=== PATIENT | female | born 1955 | race Hispanic/Latino ===

== ENCOUNTER 2017-05-07 07:36 | Inpatient (IN) | payer OTHER ==
[2017-05-07] MEDS ORDERED: Ketorolac Tromethamine 30 MG/ML VIAL ONE (08:15)
[2017-05-07 08:20] LABS: #Basophils 0.1 thou/uL (0.0-0.2); #Eosinphils 0.2 thou/uL (0.0-0.7); #Lymphocytes 2.1 thou/uL (1.20-3.40); #Monocytes 0.7 thou/uL (0.11-0.59); #Neutrophils 3.9 thou/uL (1.40-6.50); %Basophils 1.5 % (0.0-1.0); %Eosinophils 2.2 % (0.0-10.0); %Lymphocytes 30.4 % (21.0-51.0); %Monocytes 9.5 % (0.0-10.0); Hematocrit 37.4 % (36.0-47.0)
[2017-05-07 08:46] LABS: ALT (SGPT) 21 U/L (8-55); AST (SGOT) 46 U/L (5-34); Alkaline Phosphatase 196 U/L (40-150); Anion Gap 13 mmol/L (10-20); BUN (Urea Nitrogen) 20 mg/dL (9.8-20.1); Bilirubin, Total 1.3 mg/dL (0.2-1.2); Calc. Creatinine Clearance 0 mL/min (70-130); Calcium 8.9 mg/dL (7.8-10.44); Carbon Dioxide 28 mmol/L (22-29); Chloride 103 mmol/L (98-107); Estimated GFR-MDRD 69; Globulin 5.1 g/dL (2.4-3.5)
--- NOTE | 2017-05-07 09:20 | RAD ---
EXAM: LEFT TIBIA AND FIBULA 2 VIEWS: HISTORY: Pain. COMPARISON: None. FINDINGS: There is soft tissue prominence. The distal tibia and fibula demonstrate degenerative change. No f racture. No cortical irregularity or periosteal reaction. There is significant degenerative change involving the left knee. IMPRESSION: 1. No fracture. 2. Degenerative change involving the left knee and left ankle. POS: [facility]
--- NOTE | 2017-05-07 09:24 | RAD ---
LEFT FOOT 3 VIEWS: HISTORY: A 62-year-old female with left foot pain with associated injury. Dyspnea. COMPARISON: Left ankle exam 08/24/14. FINDINGS: There is soft tissue swelling of the ankle and anterior aspect of the foot. There is pes planus wit h considerable deformity within the subtalar joints and talonavicular and other intertarsal joints p ossibly related to Charcot joint and resultant deformity. Degenerative changes and bone demineraliz ation. Vascular calcifications as well as other soft tissue nonspecific calcifications. There are some interosseous cystic changes noted within the distal fibula which have progressed when compared to the prior study. No evidence for acute fracture. IMPRESSION: Very severe deformity of the hindfoot and midfoot. Evidence for Charcot joint. No acute fracture. Bone demineralization and degenerative changes. Soft tissue swelling of the foot and lower leg and ankle. POS: [facility]
[2017-05-07] MEDS ORDERED: Vancomycin HCl 2 GM, Admixture Fee 1 EACH in Sodium Chloride 0.9% 500 ML IVPB SCH (10:00)
[2017-05-07] MEDS ORDERED: Clindamycin/D5W 300 MG/50 ML BAG IVPB SCH (12:00)
[2017-05-07] MEDS ORDERED: Clindamycin/D5W 300 MG in Premix Bag 1 BAG IVPB SCH (12:00)
--- NOTE | 2017-05-07 13:44 | HP ---
DATE OF ADMISSION: 05/07/2017 CHIEF COMPLAINT: Leg pain. HISTORY OF PRESENT ILLNESS: This is a 62-year-old with multiple past comorbidities who presents with worsening left lower extremity pain, redness, swelling, and subjective chills since Wednesday. Because of her multiple comorbidities and I believe failed outpatient treatment, she decided to come into the hospital and be admitted. REVIEW OF SYSTEMS: Reviewed in detail. Please see the resident's H\T\P. PAST MEDICAL HISTORY: Significant for morbid obesity, obstructive sleep apnea, hypertension, dyslipidemia, diabetes mellitus type ; paroxysmal atrial fibrillation, currently regular; osteoarthritis, obesity hypoventilation syndrome/pickwickian syndrome, major depressive disorder, chronic diastolic heart failure, pulmonary hypertension, fatty liver disease/cryptogenic cirrhosis , macrocytic anemia, hypothyroidism, hyperlipidemia. PAST SURGICAL HISTORY: Positive for cholecystectomy, , tonsillectomy. ALLERGIES: Reportedly PENICILLIN. MEDICATIONS: List of medications reviewed with residents, see their note. FAMILY HISTORY: Noncontributory. SOCIAL HISTORY: History of tobacco abuse. Denies any alcohol or drug abuse. PHYSICAL EXAMINATION: VITAL SIGNS: Reviewed. O2 sat 99% on 2 liters nasal cannula. CONSTITUTIONAL: No acute distress, resting comfortably in bed. Morbidly obese. HEENT: Eyes without icterus or injection. Pinna normal. Nares patent. Obese neck. CARDIOVASCULAR: Heart regular rate and rhythm without murmurs, gallops or rubs. Diffuse edema in the left lower extremity. RESPIRATORY: Clear to auscultation bilaterally, limited by exam. No increased work of breathing. ABDOMEN: Soft, nontender to palpation. Normoactive bowel sounds. GENITOURINARY: Deferred. MUSCULOSKELETAL: She has a deformity of the left lower extremity from previously noted Charcot joint and a right Victor's cyst. NEUROLOGIC: Moves all extremities well. Sensation, subjectively decreased touch in bilateral lower extremities. PSYCHIATRIC: Mood and affect appropriate. Alert and oriented x3. LABORATORY DATA AND X-RAY FINDINGS: CBC with a white count of 7, hemoglobin 11.5, MCV 104, platelets 121. Chemistry with sodium 140, potassium 4.3, chloride 103, carbon dioxide 28, BUN 20, creatinine 0.84, total bilirubin 1.3, AST 46, alkaline phosphatase 196, ALT 21. X-ray of the lower extremity reveals multiple degenerative changes consistent with Charcot joint and a soft tissue swelling. ASSESSMENT AND PLAN: This is a 62-year-old female with: 1. Cellulitis of the left lower extremity, started on vancomycin and Zosyn. She has multiple risk factors for drug resistant organisms. We will send blood culture and admit to our service. 2. Chronic obstructive pulmonary disease in the setting of pulmonary hypertension and diastolic heart failure. O2, mean sat above 90%-94%. We will make sure she is on aspirin, statin, MEKA inhibitor, beta yuri as indicated. 3. Hypertension. See above. 4. Diabetes mellitus. We will monitor sugars with a goal of 140-180 while she is inpatient. A1c and lipid panel was indicated. 5. Counseled concerning her morbid obesity. 6. Hypothyroidism. Continue Synthroid. 7. Venous stasis disease. At current, she will need DENYS hose or another form of wrap for her bilateral lower extremities to prevent further tissue breakdown and to ensure healing. 8. Atrial fibrillation. She is currently on Eliquis. Will evaluate in light of her possible high risk of bleeding. 9. Cirrhosis. This is by chart report and by some imaging as well as a finding such as thrombocytopenia and persistently elevated LFTs. As she is not a drinker and dose not have any history of hepatitis, this is presumably from fatty liver disease. We will check INR and monitor. 10. Elevated AST. We will sent a CK to ensure she was in rhabdomyolysis from not getting around much. 11. Deep venous thrombosis prophylaxis. She is currently on Eliquis. We will go ahead and order lower extremity Dopplers. She has had multiple negatives in the past, but in light of her severe immobility, we will go ahead and order. 12. Tobacco abuse patient financial counselor cessation. DVT ppx as above;gastrointestinal prophylaxis with diet. MTDD
--- NOTE | 2017-05-07 14:39 | HP-2 ---
CODE STATUS: FULL. PRIMARY CARE PHYSICIAN: Jaguar Hughes D.O. ATTENDING PHYSICIAN: Greg Smith D.O. RESIDENT: Brittany Woods M.D., PGY-2. HISTORIAN: Patient. CHIEF COMPLAINT: Left leg pain. HISTORY OF PRESENT ILLNESS: The patient is a 62-year-old Pashto speaking female with multiple medical problems who presents to the Emergency Department with 4 day history of lower extremity redness and swelling. The patient states that it started after accidentally closing her left leg in a car door. She states that the redness worsened. She mentions that she also fell and hit her leg 2 days ago. She did not seek outpatient medical treatment for this issue. The patient is extremely immobile and mostly completes her activities of daily living while being seated. She denies any recent travel, no hormonal medications or recent surgeries. In the emergency department, the patient received 2 grams of vancomycin and morphine. PAST MEDICAL HISTORY: 1. COPD. 2. Obstructive sleep apnea. 3. Paroxysmal atrial fibrillation. 4. Tobacco abuse. 5. Type 2 diabetes. 6. Chronic venous stasis. 7. Morbid obesity. 8. Essential hypertension. 9. Depression. 10. Peripheral edema. 11. History of tobacco abuse. 12. Hypothyroidism. MEDICATIONS: 1. Eliquis 5 mg p.o. b.i.d. 2. Synthroid 100 mcg p.o. daily. 3. Aspirin 81 mg p.o. daily. 4. Folic acid 1 mg daily. 5. B complex vitamin 1 tablet daily. 6. Pantoprazole 40 mg daily. 7. Lasix 40 mg p.o. every 2 days. 8. Potassium chloride 20 mEq p.o. daily. 9. Nicotine patch. FAMILY HISTORY: Significant for diabetes and hypertension. SOCIAL HISTORY: The patient currently is a nonsmoker. She denies alcohol and drug use. REVIEW OF SYSTEMS: GENERAL: The patient denies fever, chills, weight change, appetite change, sleep change, night sweats and fatigue. EYES: The patient denies vision changes and eye pain. ENT: The patient denies nasal congestion, rhinorrhea, and sore throat. RESPIRATORY: The patient denies cough, congestion, shortness of breath, exercise intolerance. CARDIOVASCULAR: The patient denies chest pain, palpitations, edema, paroxysmal nocturnal dyspnea or orthopnea. GASTROINTESTINAL: The patient denies nausea, vomiting, diarrhea, constipation, abdominal pain. GENITOURINARY: The patient denies incontinence, dysuria, polyuria or discharge. SKIN: The patient reports redness. MUSCULOSKELETAL: The patient reports pain, tenderness and swelling. NEUROLOGIC: The patient denies weakness, numbness, syncope, and seizure. PSYCHIATRIC: Patient denies current symptoms of anxiety and depression. PHYSICAL EXAMINATION: VITAL SIGNS: Blood pressure 53/75, pulse 64, respirations 16, T-max 98.6, pulse ox 99% on 2 liters, weight 159 kilograms. GENERAL APPEARANCE: Patient is alert and oriented x3 in no apparent distress. She is morbidly obese. EYES: Pupils equal, round, and reactive to light. Extraocular muscles are intact. ENT: Examination of the oropharynx reveals moist mucous membranes. NECK: Supple with no lymphadenopathy. CARDIOVASCULAR: Regular rate and rhythm. No murmurs, rubs or gallops. RESPIRATORY: Lungs are clear to auscultation bilaterally. SKIN: Warm and dry with no cyanosis. ABDOMEN: Soft and distended, fluid with some peau D'orange changes. EXTREMITIES: Bilateral lower extremity pitting edema extending up to the mid arce. There is an approximately 7 cm diameter area of redness on the left lower anterior arce with areas exquisitely tender to palpation. The right lower extremity shows some dusky discoloration changes. MUSCULOSKELETAL: Normal structure and tone. NEUROLOGICAL: No focal deficits. Cranial nerves II-XII intact grossly. LABORATORY DATA AND IMAGIN. CBC: Hemoglobin 11.5, hematocrit 37.4, white blood cell count 7.02, platelet count 121, MCV 104. 2. CMP: Sodium 140, potassium 4.3, chloride 103, bicarbonate 28, BUN 20, creatinine 0.84, glucose 94, total protein 8.0, albumin 2.9, total bilirubin 1.3 , AST 46, ALT 21, alkaline phosphatase 196. 3. Echocardiogram from 12/2016 shows ejection fraction of 55%-60% with trace mitral regurgitation and tricuspid regurgitation. 4. X-ray of the left lower extremity shows no fracture of the tibia. It does show a deformity of the hind and midfoot, Charcot joint, there is soft tissue swelling. ASSESSMENT AND PLAN: The patient is a 62-year-old female with a 4-day history of lower extremity pain and redness. 1. Left lower extremity cellulitis. We will begin treatment with IV clindamycin. We will order medications for pain control. Blood cultures have been obtained and are pending. We will also order left lower extremity Doppler to rule out deep venous thrombosis. 2. Chronic obstructive pulmonary disease. Continue patient's home medications and we will also add p.r.n. DuoNebs. 3. Proximal atrial fibrillation, currently rate controlled. Continue anticoagulation with Eliquis. 4. Hypothyroidism. We will order a TSH. Continue patient's home medications. 5. Left lower extremity edema. Continue patient's home Lasix and potassium. 6. Gastroesophageal reflux disease. Continue patient's pantoprazole. 7. Macrocytic anemia. Continue patient's folate and B12 complexes and we can also check laboratory levels of this as well. 8. History of tobacco abuse. We will continue patient's home dose of transdermal nicotine. DISPOSITION: Stable. We will admit patient to inpatient medical service for at least 2 midnights. Symptomatic medications will be provided. History and physical exam as well as management discussed with Dr. Greg Ware, who has seen the patient and is in agreement with this plan. SALOMED
[2017-05-07] MEDS ORDERED: FLU VACC QS2017-18 36 mo. & older 0.5 ML SYRINGE IM ONE (15:00)
--- NOTE | 2017-05-07 16:43 | ULT ---
LEFT LOWER EXTREMITY VENOUS DUPLEX SONOGRAM: 05/07/17 HISTORY: Left leg pain and edema. FINDINGS: The left common femoral vein and greater saphenous junction were evaluated along with the femoral, d eep femoral, popliteal, and posterior tibial veins. There is good color and spectral doppler flow, c ompression, and augmentation. IMPRESSION: No sonographic evidence of DVT within the left lower extremity. POS: [facility]
[2017-05-07] MEDS: Simvastatin 20 MG TAB PO SCH (21:36)
[2017-05-07] MEDS: Ibuprofen 600 MG TAB PO SCH (21:36)
[2017-05-07] MEDS: Apixaban 5 MG TAB PO SCH (21:37)
[2017-05-07] MEDS: Clindamycin/D5W 300 MG in Premix Bag 1 BAG IVPB SCH (21:40)
[2017-05-08] MEDS: Clindamycin/D5W 300 MG in Premix Bag 1 BAG IVPB SCH ×4 (04:17→21:09)
[2017-05-08 04:59] LABS: #Basophils 0.1 thou/uL (0.0-0.2); #Eosinphils 0.2 thou/uL (0.0-0.7); #Monocytes 0.6 thou/uL (0.11-0.59); %Basophils 1.3 % (0.0-1.0); %Eosinophils 3.4 % (0.0-10.0); %Lymphocytes 34.1 % (21.0-51.0); %Monocytes 10.6 % (0.0-10.0); Hematocrit 32.6 % (36.0-47.0); Mean Platelet Volume 8.9 fL (7.4-10.4); Red Blood Cell (RBC) Count 3.08 mill/uL (4.20-5.40)
[2017-05-08] MEDS ORDERED: Levothyroxine Sodium 112 MCG TAB PO SCH (06:00)
--- NOTE | 2017-05-08 06:24 | PDOC.FM ---
- Subjective Subjective: Per nurse, patient did well overnight. No complaints/concerns. Still having left leg pain. No extension or progression of erythema on leg. No fevers. Denies chest pain, abdominal pain. - Objective MAR Reviewed: Yes Vital Signs & Weight: Vital Signs (12 hours) Temp Pulse Resp BP Pulse Ox 05/08/17 05:44 97.8 F 61 20 133/78 92 L 05/08/17 00:00 98.3 F 63 18 124/72 92 L 05/07/17 20:00 98.1 F 75 18 140/69 93 L I&O: 05/06/17 05/07/17 05/08/17 06:59 06:59 06:59 Intake Total 280 Output Total 600 Balance -320 Result Diagrams: 05/08/17 03:51 05/07/17 08:00 <Chris Montiel - Last Filed: 05/08/17 07:38> - Objective Vital Signs & Weight: Vital Signs (12 hours) Temp Pulse Resp BP BP Pulse Ox 05/08/17 08:00 97.9 F 67 24 H 132/85 92 L 05/08/17 05:44 97.8 F 61 20 133/78 92 L I&O: 05/07/17 05/08/17 05/09/17 06:59 06:59 06:59 Intake Total 280 Output Total 600 Balance -320 Result Diagrams: 05/08/17 03:51 05/07/17 08:00 <Simin Wilkinson - Last Filed: 05/08/17 14:58> Phys Exam - Physical Examination Constitutional: NAD HEENT: moist MMs, sclera anicteric Neck: supple, full ROM Respiratory: no wheezing, no rales, no rhonchi, clear to auscultation bilateral Cardiovascular: RRR, no significant murmur Gastrointestinal: soft, non-tender, no distention, positive bowel sounds Musculoskeletal: edema present 2+ edema on left leg Neurological: non-focal, moves all 4 limbs Psychiatric: A&O x 3 Deviation from normal: erythema of left lower extremity, does not extend passed marked lines <Chris Montiel - Last Filed: 05/08/17 07:38> Dx/Plan (1) Cellulitis of leg Code(s): L03.119 - CELLULITIS OF UNSPECIFIED PART OF LIMB Status: Acute Plan: -switch from IV clindamycin to PO clindamycin today -cultures pending -will need to f/u OP -LE doppler was negative (2) COPD (chronic obstructive pulmonary disease) Status: Acute Plan: -continue home medications -prn duonebs (3) Paroxysmal a-fib Code(s): I48.0 - PAROXYSMAL ATRIAL FIBRILLATION Status: Acute Plan: -continue home meds -continue anticoagulation with eliquis (4) Hypothyroid Code(s): E03.9 - HYPOTHYROIDISM, UNSPECIFIED Status: Chronic Plan: TSH 20. Will increase home dose, will need to f/u OP to manage therapy and recheck TSH (5) GERD (gastroesophageal reflux disease) Code(s): K21.9 - GASTRO-ESOPHAGEAL REFLUX DISEASE WITHOUT ESOPHAGITIS Status: Acute Plan: -home meds (6) Macrocytic anemia Code(s): D53.9 - NUTRITIONAL ANEMIA, UNSPECIFIED Status: Chronic Plan: -cont home B12 and folate (7) History of tobacco abuse Code(s): Z87.891 - PERSONAL HISTORY OF NICOTINE DEPENDENCE Status: Acute - Plan Plan: Patient likely ready for discharge today on PO clindamycin with close OP follow up. <Chris Montiel - Last Filed: 05/08/17 07:38> Attending Addendum - Attending Addendum I personally evaluated the patient and discussed the management with Dr. Montiel. I agree with the History, Examination, Assessment and Plan documented above with any addition or exceptions noted below. Diabetic with cellulitis of leg after injury admitted yesterday and doing much better today. Erythema and swelling reduced, but patient still has lots of pain. Blood cultures negative x 24 hours. TSH is 20.8582, so will need to increase Levothyroxine dose. If Tylenol #3 helps pain enough, can discharge home this afternoon with close outpatient follow-up. <Simin Wilkinson - Last Filed: 05/08/17 14:58>
[2017-05-08] MEDS: Potassium Chloride 20 MEQ TAB PO SCH (09:48)
[2017-05-08] MEDS: Stress 600 With Zinc 1 TAB PO SCH (09:48)
[2017-05-08] MEDS: Apixaban 5 MG TAB PO SCH ×2 (09:48→20:51)
[2017-05-08] MEDS: Ibuprofen 600 MG TAB PO SCH ×2 (09:48→20:52)
[2017-05-08] MEDS: Acetaminophen/Codeine 30-300mg Tablet PO PRN ×3 (09:48→22:06)
[2017-05-08] MEDS: Folic Acid 1 MG TAB PO SCH (09:48)
[2017-05-08] MEDS: Citalopram 20 MG TAB PO SCH (09:49)
[2017-05-08] MEDS: Simvastatin 20 MG TAB PO SCH (20:52)
[2017-05-09] MEDS: Clindamycin/D5W 300 MG in Premix Bag 1 BAG IVPB SCH ×4 (03:05→21:07)
[2017-05-09] MEDS ORDERED: Levothyroxine Sodium 125 MCG TAB PO SCH (06:00)
--- NOTE | 2017-05-09 06:38 | PDOC.FM ---
- Subjective Subjective: Per nurse, patient did well overnight. Slept much better after getting the tylenol #3. This morning the patient states that her left leg is still hurting. Denies fever, chest pain, abdominal pain, nausea, vomiting. - Objective MAR Reviewed: Yes Vital Signs & Weight: Vital Signs (12 hours) Temp Pulse Resp BP Pulse Ox 05/09/17 04:00 97.7 F 62 18 156/90 H 94 L 05/08/17 23:47 98.2 F 65 20 131/73 92 L 05/08/17 20:00 98.1 F 70 18 94 L 05/08/17 19:35 98.1 F 70 18 115/65 94 L I&O: 05/07/17 05/08/17 05/09/17 06:59 06:59 06:59 Intake Total 280 840 Output Total 600 Balance -320 840 Result Diagrams: 05/09/17 06:13 05/07/17 08:00 Radiology Reviewed by me: Yes <Chris Montiel - Last Filed: 05/09/17 07:49> - Objective Vital Signs & Weight: Vital Signs (12 hours) Temp Pulse Resp BP BP BP Pulse Ox 05/09/17 08:17 62 156/90 H 05/09/17 08:00 97.8 F 68 18 106/65 93 L 05/09/17 04:00 97.7 F 62 18 156/90 H 94 L I&O: 05/08/17 05/09/17 05/10/17 06:59 06:59 06:59 Intake Total 280 840 Output Total 600 10 Balance -320 840 -10 Result Diagrams: 05/09/17 06:13 05/07/17 08:00 <Simin Wilkinson - Last Filed: 05/09/17 14:47> Phys Exam - Physical Examination Constitutional: NAD HEENT: moist MMs, sclera anicteric Neck: no JVD, supple, full ROM Respiratory: no wheezing, no rales, no rhonchi, clear to auscultation bilateral Cardiovascular: RRR, no significant murmur, no rub, gallop Gastrointestinal: soft, non-tender, no distention Musculoskeletal: pulses present, edema present left lower leg edema Neurological: non-focal, moves all 4 limbs Psychiatric: A&O x 3 <Chris Montiel - Last Filed: 05/09/17 07:49> Dx/Plan (1) Cellulitis of leg Code(s): L03.119 - CELLULITIS OF UNSPECIFIED PART OF LIMB Status: Acute Plan: -continue IV clindamycin yesterday -monitoring leg closely to response to abx -cultures pending-no growth to date -will need to f/u OP -LE doppler was negative for DVT (2) COPD (chronic obstructive pulmonary disease) Status: Acute Plan: -continue home medications -prn duonebs (3) Paroxysmal a-fib Code(s): I48.0 - PAROXYSMAL ATRIAL FIBRILLATION Status: Acute Plan: -continue home meds -continue anticoagulation with eliquis -has remained rate-controlled (4) Hypothyroid Code(s): E03.9 - HYPOTHYROIDISM, UNSPECIFIED Status: Chronic Plan: TSH 20. Will increase home dose, will need to f/u OP to manage therapy and recheck TSH -Increased Synthroid to 125mcg (5) GERD (gastroesophageal reflux disease) Code(s): K21.9 - GASTRO-ESOPHAGEAL REFLUX DISEASE WITHOUT ESOPHAGITIS Status: Acute Plan: -cont home meds (6) Macrocytic anemia Code(s): D53.9 - NUTRITIONAL ANEMIA, UNSPECIFIED Status: Chronic Plan: -cont home B12 and folate (7) History of tobacco abuse Code(s): Z87.891 - PERSONAL HISTORY OF NICOTINE DEPENDENCE Status: Acute (8) Hypertension Code(s): I10 - ESSENTIAL (PRIMARY) HYPERTENSION Status: Chronic Qualifiers: Hypertension type: essential hypertension Qualified Code(s): I10 - Essential (primary) hypertension Plan: -Review of clinic records show that she takes Lisinopril 2.5 mg PO daily and Lasix 40 mg every other day. -Starting both of those today. -BPs have been normal throughout admission until today. Most recent BP- 156/90 -Will continue to monitor - Plan Plan: If pain is well controlled, patient will be discharged today with PO clindamycin and pain medication. Will need close follow up OP. <Chris Montiel - Last Filed: 05/09/17 07:49> Attending Addendum - Attending Addendum I personally evaluated the patient and discussed the management with Dr. Montiel. I agree with the History, Examination, Assessment and Plan documented above with any addition or exceptions noted below. Patient was asleep, but once awake, seems very uncomfortable when team came in today. C/O pain and not being able to go home due to pain. She received Tylenol #3 before bedtime and slept through the night. This morning she was uncomfortable when seen by Dr. Montiel, so was given more medicine. Cellulitis is improved with decreased redness, but still exquisitely tender in the area. PT eval. put in yesterday, so they will probably assess gait today. Will give 4 mg Morphine and then schedule oral pain meds q 4 hours and reassess. If still having too much pain, may need to stay another night for pain managment. If she stays, might be able to see if qualifies for SNF tomorrow. <Simin Wilkinson - Last Filed: 05/09/17 14:47>
[2017-05-09 06:56] LABS: #Eosinphils 0.1 thou/uL (0.0-0.7); #Lymphocytes 1.8 thou/uL (1.20-3.40); #Monocytes 0.6 thou/uL (0.11-0.59); %Basophils 0.7 % (0.0-1.0); %Eosinophils 2.1 % (0.0-10.0); %Lymphocytes 32.2 % (21.0-51.0); %Monocytes 10.8 % (0.0-10.0); Hematocrit 34.3 % (36.0-47.0); Mean Platelet Volume 9.3 fL (7.4-10.4); Red Blood Cell (RBC) Count 3.16 mill/uL (4.20-5.40); White Blood Cell (WBC) Count 5.5 thou/uL (4.8-10.8)
[2017-05-09] MEDS: Lisinopril 2.5 MG TAB PO SCH (08:17)
[2017-05-09] MEDS: Potassium Chloride 20 MEQ TAB PO SCH (08:17)
[2017-05-09] MEDS: Citalopram 20 MG TAB PO SCH (08:17)
[2017-05-09] MEDS: Ibuprofen 600 MG TAB PO SCH ×2 (08:17→20:46)
[2017-05-09] MEDS: Stress 600 With Zinc 1 TAB PO SCH (08:17)
[2017-05-09] MEDS: Apixaban 5 MG TAB PO SCH ×2 (08:17→20:46)
[2017-05-09] MEDS: Acetaminophen/Codeine 30-300mg Tablet PO PRN (08:18)
[2017-05-09] MEDS: Folic Acid 1 MG TAB PO SCH (08:18)
[2017-05-09] MEDS: Floranex Packet PO SCH (08:18)
[2017-05-09] MEDS ORDERED: Furosemide 40 MG TAB PO SCH (08:30)
[2017-05-09] MEDS: Acetaminophen/Codeine 30-300mg Tablet PO SCH ×4 (10:20→23:02)
[2017-05-09] MEDS: Simvastatin 20 MG TAB PO SCH (20:46)
[2017-05-09] MEDS: Ondansetron HCl/PF 4 MG/2 ML Vial IVP PRN (21:08)
[2017-05-10] MEDS ORDERED: Succinylcholine Chloride 20 MG/ML 10 ml SYRINGE FS ONE (01:00)
[2017-05-10] MEDS: Acetaminophen/Codeine 30-300mg Tablet PO SCH (01:42)
[2017-05-10] MEDS ORDERED: Sedation Protocol FS ONE (01:44)
[2017-05-10] MEDS ORDERED: Propofol 1,000 MG/100 ML VIAL IV ONE (01:48)
[2017-05-10] MEDS ORDERED: Lorazepam 2 MG/ML VIAL SLOW IVP PRN (01:55)
[2017-05-10] MEDS ORDERED: DISCONTINUE PREVIOUS NARCOTIC PAIN MEDICATIONS AND BENZODIAZEPINES FS SCH (01:55)
[2017-05-10] MEDS ORDERED: Fentanyl 20 MCG/ML 250 ML IVPB SCH (01:55)
[2017-05-10 02:02] LABS: #Basophils 0.1 thou/uL (0.0-0.2); #Eosinphils 0.1 thou/uL (0.0-0.7); #Monocytes 0.8 thou/uL (0.11-0.59); %Basophils 0.8 % (0.0-1.0); %Eosinophils 0.9 % (0.0-10.0); %Lymphocytes 27.6 % (21.0-51.0); %Monocytes 7.2 % (0.0-10.0); Hematocrit 38.7 % (36.0-47.0); Red Blood Cell (RBC) Count 3.47 mill/uL (4.20-5.40)
[2017-05-10 02:05] LABS: PTT 40.9 SEC (22.9-36.1)
[2017-05-10 02:13] LABS: Troponin I 0.015 ng/mL (< 0.028)
[2017-05-10] MEDS ORDERED: Norepinephrine 8 MG/250 ML BAG IVPB PRN (02:13)
[2017-05-10 02:22] LABS: ALT (SGPT) 21 U/L (8-55); AST (SGOT) 40 U/L (5-34); Alkaline Phosphatase 171 U/L (40-150); Anion Gap 10 mmol/L (10-20); BUN (Urea Nitrogen) 27 mg/dL (9.8-20.1); Calc. Creatinine Clearance 119 mL/min (70-130); Calcium 8.9 mg/dL (7.8-10.44); Carbon Dioxide 33 mmol/L (22-29); Chloride 101 mmol/L (98-107); Estimated GFR-MDRD 43; Globulin 5.6 g/dL (2.4-3.5); Protein, Total 8.7 g/dL (6.0-8.3)
[2017-05-10] MEDS: Norepinephrine 8 MG/0.9% NS 250 ML ONE ×2 (02:42→03:56)
[2017-05-10 02:56] LABS: Oxyhemoglobin 94.6 % (94.0-97.0); Sodium 140 mmol/L (135-148)
[2017-05-10 03:11] LABS: Mechanical Tidal Volume 450 ml; Vent YES
[2017-05-10 03:12] LABS: Pressure Support 12 cmH2O
[2017-05-10 03:13] LABS: Mode SIMV
--- NOTE | 2017-05-10 03:21 | PDOC.EVN ---
Event Note - Event Note Event Note: FM Attending Note Critical Care Note Critical Care time 01:05am to 03:15am Came to patients room following overhead call for Fernandez Bass. Patient was noted by nursing staff to be unarousable and with O2 Sat of 53%. RT present along with Resident physicians. Patient was being ventilated with bag mask. Patient had pulse. While ET intubation was being prepared, Anesthesia arrived. Oral airway had been placed. When it was removed, Some blood in the mouth was noted and suctioned away by Anesthesia. Patient successfully intubated and transferred to the CCU. CXR confirmed ET placement. In the CCU MAPS were noted to be less than 65, so NS bolus initated. Propofol was ordered for sedation, since patient was being more alert and agitated. Levophed initiated. The ET cuff was noted to not inflate and an air leak was noted. With Love sedated I attempted to replace the ET tube over ET replacement stylet. After successfully pass the stylet, the ET tube was removed but the new ET tube would not pass the vocal cords. When passing the new ET tube was unsuccessful, Bag mask ventilation was initiated and Anesthesia was called to return. While awaiting Anesthesia, I was able to visualize the Vocal Cords which were closed and edematous. Visualization was lost due to blood obscuring the view. Blood was suction from the mouth and pharynx. The only source of bleeding was from her upper gum. Anesthesia arrived, gave a dose of Succinylcholine and was able to successfully intubate. She has Breath Sounds bilaterally. CXR shows the tip of ETT just above kathleen. Awaiting Rad report. Following second intubation her BP has improved and the levophed is being weaned. Sedation protocol has been initiated. Labs drawn shortly after fernandez bass called are unremarkable except for increase in creatinine. Trop/CE normal. Lactate normal. EKG shows no acute ischemic change. Sinus rhythm, normal rate. ABG shows elevated pCO2 at 64. pO2 at 70. HCO3 is 29.5. This is consistent with Acute Hypercapnic Resp Failure on chronic hypercapnia. Because of her eloquis, I do not think she has a PE. Her EKG do not suggest an AMI. I suspect a pickwickian syndrome etiology. I expect her to respond to Ventilation and wean off the vent over the coming days but given her body habitus and comorbidities this may be take longer. Her prognosis is guarded.
[2017-05-10] MEDS ORDERED: Sodium Chloride 0.9% 1,000 ML IV SCH ×2 (03:45→11:33)
[2017-05-10] MEDS: Clindamycin/D5W 300 MG in Premix Bag 1 BAG IVPB SCH ×4 (04:12→20:28)
[2017-05-10 05:06] LABS: #Eosinphils 0.1 thou/uL (0.0-0.7); #Lymphocytes 0.9 thou/uL (1.20-3.40); #Monocytes 0.4 thou/uL (0.11-0.59); #Neutrophils 4.9 thou/uL (1.40-6.50); %Basophils 0.2 % (0.0-1.0); %Eosinophils 2.3 % (0.0-10.0); %Lymphocytes 14.1 % (21.0-51.0); %Monocytes 6.1 % (0.0-10.0); Hematocrit 31.4 % (36.0-47.0); Mean Platelet Volume 9.3 fL (7.4-10.4); Red Blood Cell (RBC) Count 2.92 mill/uL (4.20-5.40); White Blood Cell (WBC) Count 6.4 thou/uL (4.8-10.8)
[2017-05-10] MEDS: Sodium Chloride 0.9% 1,000 ML IV SCH ×2 (05:36→13:53)
[2017-05-10] MEDS: Propofol 1,000 MG/100 ML VIAL IV PRN ×5 (05:41→21:00)
[2017-05-10 05:53] LABS: Free T3 Less than 1.00 pg/mL (1.71-3.71)
[2017-05-10 06:56] LABS: Oxyhemoglobin 96.6 % (94.0-97.0); Sodium 139 mmol/L (135-148)
[2017-05-10 06:57] LABS: Mechanical Tidal Volume 450 ml; Mode SIMV/PSV; Modified Allen's Test POSITIVE; Pressure Support 12 cmH2O; Vent YES
--- NOTE | 2017-05-10 07:15 | PDOC.FM ---
- Subjective Subjective: Patient intubated and sedated this morning. Has been neurologically intact off intubation but agitated. She was transferred to CCU overnight after a code blue was called and she was found hypoventilating with an oxygen sat down to 53%. She was intubated but had to have reintubation 2/2 air leak. - Objective Vital Signs & Weight: Vital Signs (12 hours) Temp Pulse Resp BP BP Pulse Ox 05/10/17 06:01 53 L 110/62 05/10/17 04:00 97.5 F L 24 H 05/10/17 03:28 24 H 05/10/17 03:15 56 L 05/10/17 01:44 20 05/10/17 01:30 62 05/10/17 01:27 97.5 F L 69 20 98 05/10/17 00:45 97.3 F L 88 20 143/67 H 56 L 05/10/17 00:27 20 05/09/17 20:00 98.4 F 69 18 90/46 L 94 L Weight Weight 155.6 kg Most Recent Monitor Data Heart Rate from ECG 54 NIBP 110/62 NIBP BP-Mean 74 Respiration from ECG 19 SpO2 96 I&O: 05/09/17 05/10/17 05/11/17 06:59 06:59 06:59 Intake Total 840 3212.1 Output Total 416 Balance 840 2796.1 Result Diagrams: 05/10/17 07:54 05/10/17 01:15 <Mary Fernandez - Last Filed: 05/10/17 10:14> - Objective Vital Signs & Weight: Vital Signs (12 hours) Temp Pulse Pulse Resp BP BP BP 05/10/17 10:10 97.9 F 57 L 20 119/63 05/10/17 10:02 60 122/67 05/10/17 10:00 20 05/10/17 09:55 97.8 F 56 L 20 116/65 05/10/17 09:39 97.8 F 56 L 20 83/46 L 05/10/17 09:24 97.5 F L 57 L 20 120/65 05/10/17 08:59 97.5 F L 05/10/17 08:00 20 05/10/17 06:01 53 L 110/62 05/10/17 04:00 97.5 F L 24 H 05/10/17 03:28 24 H 05/10/17 03:15 56 L 05/10/17 01:44 20 05/10/17 01:30 62 05/10/17 01:27 97.5 F L 69 20 05/10/17 00:45 97.3 F L 88 20 05/10/17 00:27 20 BP Pulse Ox 05/10/17 10:10 05/10/17 10:02 05/10/17 10:00 05/10/17 09:55 05/10/17 09:39 05/10/17 09:24 05/10/17 08:59 05/10/17 08:00 05/10/17 06:01 05/10/17 04:00 05/10/17 03:28 05/10/17 03:15 05/10/17 01:44 05/10/17 01:30 05/10/17 01:27 98 05/10/17 00:45 143/67 H 56 L 05/10/17 00:27 Weight Weight 155.6 kg Most Recent Monitor Data Heart Rate from ECG 57 NIBP 119/62 NIBP BP-Mean 77 Respiration from ECG 20 SpO2 100 I&O: 05/09/17 05/10/17 05/11/17 06:59 06:59 06:59 Intake Total 840 3212.1 510 Output Total 416 85 Balance 840 2796.1 425 Result Diagrams: 05/10/17 07:54 05/10/17 01:15 <Valeria Madrid - Last Filed: 05/10/17 11:03> Phys Exam - Physical Examination omtubated and sedated bright blood oozing from mouth Respiratory: no wheezing difficult exam 2/2 body habitus gilles with reg rhythm Gastrointestinal: soft, no distention, positive bowel sounds Musculoskeletal: no edema Deviation from normal: LLE cellulitis improving, mild erythema <Mary Fernandez - Last Filed: 05/10/17 10:14> Dx/Plan (1) Acute on chronic respiratory failure with hypoxia and hypercapnia Code(s): J96.21 - ACUTE AND CHRONIC RESPIRATORY FAILURE WITH HYPOXIA; J96.22 - ACUTE AND CHRONIC RESPIRATORY FAILURE WITH HYPERCAPNIA Status: Acute Plan: transferred to CCU and intubated on 05/10/17 -unclear etiology but may be 2/2 hypoventilation 2/2 obesity. (2) Hypotension Status: Acute Plan: on levofed drip and NS @ 200ml/hr. Did receive 2 liter bolus overnight after transfer to ICU. Possible trauma during intubation and currently bleeding from mouth. Plan for 1 unit PRBC per pulm. repeat HGB pending. after intubation hgb at 11.5 and dropped to 9.6 s/p 2 liters NS. ENT consulted (3) Cellulitis of leg Code(s): L03.119 - CELLULITIS OF UNSPECIFIED PART OF LIMB Status: Acute Plan: clindamycin day 5. improving. (4) Macrocytic anemia Code(s): D53.9 - NUTRITIONAL ANEMIA, UNSPECIFIED Status: Chronic Plan: likely worsening appearance of anemia this AM is dilutional (5) History of tobacco abuse Code(s): Z87.891 - PERSONAL HISTORY OF NICOTINE DEPENDENCE Status: Acute (6) COPD (chronic obstructive pulmonary disease) Status: Acute (7) MALISSA (acute kidney injury) Code(s): N17.9 - ACUTE KIDNEY FAILURE, UNSPECIFIED Status: Acute (8) Hypoventilation associated with obesity Code(s): E66.2 - MORBID (SEVERE) OBESITY WITH ALVEOLAR HYPOVENTILATION Status : Chronic (9) Paroxysmal a-fib Code(s): I48.0 - PAROXYSMAL ATRIAL FIBRILLATION Status: Acute (10) Pulmonary hypertension Code(s): I27.2 - OTHER SECONDARY PULMONARY HYPERTENSION * DO NOT USE * Status : Acute <Mary Fernandez - Last Filed: 05/10/17 10:14> Attending Addendum - Attending Addendum I personally evaluated the patient and discussed the management with Dr. Fernandez I agree with the History, Examination, Assessment and Plan documented above with any addition or exceptions noted below- Patient intubated and sedated. Overnight events reviewed. Afebrile VSS. A/P: 1) Respiratory failure- continue vent support and wean as per pulmonary, 2) Difficult intubation- now with bleeding from mouth/airway. Given KCentra to reverse eliquis and transfused pRBC /FFP; will consult ENT, 3) Cellulitis-improved; continue current abx;. 4) Hypotension- uncertain etiology; continue pressor support; monitor urine output. <Valeria Madrid - Last Filed: 05/10/17 11:03>
--- NOTE | 2017-05-10 08:10 | RAD ---
PRELIMINARY REPORT/[facility]/EMERGENCY AFTER HOURS PROCEDURE: EXAM: XR Chest, 1 View CLINICAL HISTORY: 62 years old, female; Device placement; Ett placement (vent status); Patient HX: S/P intubation TECHNIQUE: Frontal view of the chest. COMPARISON: No relevant prior studies available. FINDINGS: Limited study due to low lung volumes, body habitus, rotation, portable technique and overlying dens ities. Consider repeat/followup study. It is difficult to determine the location of the tip of the endotracheal tube, however it could be close to the kathleen and retraction by 2 cm suggested. Tip of the nasogastric tube is not well visual ized below the diaphragm. Left lung diffuse airspace opacities. Enlarged cardiomediastinal silhouette could relate to technique, cardiomegaly and other etiologies. No significant effusion or pneumothorax on limited supine evaluation. IMPRESSION: Limited study. Life-support devices described above. Left lung diffuse airspace opacities may represent pneumonia, although other etiologies not excluded . Other findings above. Thank you for allowing us to participate in the care of your patient. Dictated and Authenticated by: Markel Jane MD 05/10/2017 3:13 AM Central Time ([place] \T\ [place]) FINAL REPORT AP VIEW OF THE CHEST: INDICATION: Status post intubation, NG tube placement. COMPARISON: Prior exam dated 05/10/17. IMPRESSION: EG tube remains at the level of the kathleen. Cardiomegaly and bilateral perihilar airspace opacities , left greater than right, are stable. No pneumothorax is evident. Pacer pad overlies the right up per hemithorax. Osseous structures are similar. IMPRESSION: Stable positioning of the ET tube tip. Recommend withdrawal atleast 1.5 cm. POS: [facility]
--- NOTE | 2017-05-10 08:36 | RAD ---
FRONTAL RADIOGRAPH CHEST: DATE: 05/10/17. COMPARISON: 03/21/17. HISTORY: Code Blue. FINDINGS: There is gaseous distention of the stomach. There is an endotracheal tube in place, distal tip over lying the tracheal air column, probably within 1.3 cm of the kathleen. Recommend slightly retracting the endotracheal tube. There is artifact overlying the right upper lobe, limiting assessment. The patient is mildly rotated to the right. There is mild nonspecific perihilar increased density which may be on the basis of vascular prominence or airspace disease. IMPRESSION: Slightly low-lying endotracheal tube. Gaseous distention of stomach. Pulmonary vascular prominence versus mild perihilar infiltrate. Followup advised. POS: [facility]
[2017-05-10] MEDS ORDERED: HUMAN PROTHROMBIN COMPLX IV SCH (09:00)
[2017-05-10] MEDS ORDERED: ADMIXTURE FEE IV SCH (09:00)
[2017-05-10 09:29] LABS: Hematocrit 28.7 % (36.0-47.0)
[2017-05-10] MEDS ORDERED: Lacri-Lube Opth Oint 3.5 GM TUBE EA EYE PRN (11:32)
--- NOTE | 2017-05-10 12:34 | CON ---
DATE OF CONSULTATION: 05/10/2017 SERVICE: Pulmonary Medicine. REASON FOR CONSULTATION: Intubated patient. HISTORY OF PRESENT ILLNESS: The patient is a 62-year-old female with past medical history significant for a little bit of cellulitis. She was clinically improving very well. Last night, she a little bit of discomfort. She was given Tylenol #3. That being said, she has tolerated this medication on several times in the past. She was found, however, a couple of hours later and was nonresponsive. She had saturations that were in the 50s. She never lost pulse. Because of her altered mentation, she was electively intubated. The cuff ruptured at some point, so the tube was exchanged. There is a difficult time establishing a repeat airway. There were multiple episodes of desaturation during this process, though she never did lose pulse. After an airway was secured, there was significant amount of bleeding around the mouth and nose. Two nasal tampons are in place. She continues to have blood coming from the mouth. She cannot provide any additional elements of the history. Her sedation is a little on the heavy side, but because anytime she wakes up and coughs or gags, the bleeding becomes more profuse. PAST MEDICAL HISTORY: 1. Type 2 diabetes mellitus. 2. Hypertension. 3. Dyslipidemia. 4. Proximal atrial fibrillation. 5. Obstructive sleep apnea. 6. Chronic obstructive pulmonary disease, possible. 7. Tobacco abuse. 8. Chronic stasis of the bilateral lower extremities. 9. Morbid obesity. 10. Major depressive disorder. 11. Tobacco abuse. 12. Hypothyroidism. PAST SURGICAL HISTORY: 1. Cholecystectomy. 2. section. FAMILY HISTORY: Positive for diabetes and hypertension. SOCIAL HISTORY: Negative for current alcohol, tobacco or illicit drug use. ALLERGIES: PENICILLIN and AMOXICILLIN. MEDICATIONS: List of her inpatient medications was reviewed. Multiple updates were made. PHYSICAL EXAMINATION: VITAL SIGNS: Afebrile, pulse 60, blood pressure 119/63, respirations 20, saturation 100% on 47% FiO2. HEENT: Normocephalic. There is a significant amount of blood at the mouth and naris. Bilateral nasal tampons are in place. I have inspected the tongue around the area of the teeth and I did not identify any clear evidence of a laceration or bleeding nidus. LUNGS: Decent air entry bilaterally. There is no prolonged expiratory phase. There are minimal crackles dependently. HEART: Normal rate, regular. ABDOMEN: Soft, nontender, nondistended, bowel sounds positive. MUSCULOSKELETAL: No cyanosis or clubbing. There is 2+ pitting in the bilateral lower extremities, which is roughly symmetric. She has chronic stasis of the bilateral lower extremities, but increased erythema of the left leg. There is a line that previously identified, the red margin, which is now regressing. There is a little bit of increased heat to the right leg compared to left. LABORATORY DATA: WBC 6.4, hemoglobin 10.2 and roughly stable, platelets 81, 000. INR 1.5, pH of 7.52, pCO2 of 33, pO2 51. Creatinine 1.26 and up trending. BUN 27. Basic metabolic profile is otherwise unremarkable. Bilirubin 1.0, AST 40, alkaline phosphatase 171, both of which are down trending gently. Albumin 3.1. TSH is elevated and a free T3 is low. Lactate is unremarkable. Blood cultures x2 were negative. IMAGING: Chest x-ray demonstrates endotracheal tube is a little bit deep. There is some left lower lobe parenchymal opacification. ASSESSMENT: 1. Cellulitis. 2. Severe sepsis, improving. 3. Acute kidney injury. 4. Acute hypoxic respiratory failure, unknown etiology. 5. Acute blood loss anemia. 6. Obstructive sleep apnea. PLAN: We will continue supportive care. Hemoglobin will be trended. If she drops significantly or develops any instability from a hemodynamic perspective, she will be transfused a couple of units of blood. We are going down for a CT of the head and neck with contrast, so that we can further delineate the injury and see what may be actively bleeding presently. Ventilator adjustments have been made to target her goals of respiration. Pulmonary and Critical Care will continue to follow, but she will certainly remain intubated until the bleeding stops. Of note, Eliquis has been discontinued. CRITICAL CARE TIME: 30 minutes. MTDD
--- NOTE | 2017-05-10 13:06 | CT ---
CT OF THE BRAIN WITH AND WITHOUT IV CONTRAST: Date: 05/10/17 INDICATION: History of Code earlier this morning with bleeding from the airway. COMPARISON: Noncontrast CT of the brain dated 02/02/17. FINDINGS: No acute intracranial infarct, hemorrhage, or hydrocephalus is present. Septum pellucidum and third ventricle are midline. There is mild chronic small vessel white matter ischemic change. No definite area of abnormal enhancement is evident. There is a prominent amount of debris seen within the oral cavity, nasal cavity, and visualized oropharynx. There is air fluid levels within the paranasal sinu ses. There is a right mastoid effusion. The patient is intubated. IMPRESSION: 1. No acute intracranial abnormality. 2. Prominent amount of debris within the nasal cavity, oral cavity, and visualized nasal oropharynx . Recommend suctioning. 3. Air fluid levels within the paranasal sinuses may be related to patient's recent intubation. Pro minent sinusitis cannot be entirely excluded. 4. Partial right mastoid effusion. 5. Mild chronic small vessel white matter ischemic change. POS: [facility]
--- NOTE | 2017-05-10 13:23 | CT ---
CT OF THE SOFT TISSUES OF THE NECK WITH IV CONTRAST: Date: 05/10/17 INDICATION: History of coding this morning, now concern for bleeding from the airway. FINDINGS: Prominent amount of debris seen within the nasopharynx, nasal cavity, oropharynx, and within the janelle nstem trachea adjacent to the ET tube tip. No obvious debris is evident within the distal main trach ea below the level of the vocal cords. No drainable fluid collection is evident. There are air fluid levels within the visualized paranasal sinuses. Posterior fossa appears within normal limits. There is some soft tissue gas seen within the right lateral aspect of the cheek on image 29 of series 4, which may reflect a buccal laceration. No abnormal density is seen within the parapharyngeal space o r within the general doc space. Parotid and submandibular glands appear within normal limits. There i s a small nodule within the left thyroid gland measuring 1.3 cm. There is a 1.0 cm lymph node seen w ithin the right paratracheal region. Gastric catheter is seen within the esophagus. There are perihi lar air space opacities. There is scattered degenerative change. IMPRESSION: 1. Findings suspicious for possible right-sided buccal laceration. Recommend correlation with the c linical exam. There is debris seen within the nasal cavity, oral cavity, nasal and oropharynx which may reflect hemorrhage. Recommend suction. Remaining visualized aerodigestive tract appears within n ormal limits. A small amount of debris is seen within the proximal mainstem trachea adjacent to the ET tube tip, none is seen below the level of the vocal cords. 2. Perihilar opacities are nonspecific and may reflect perihilar edema. Continued follow-up is chary mmended. 3. Left thyroid nodule measuring 1.3 cm. 4. Paranasal sinus air fluid levels may reflect sequelae of recent intubation; however, prominent p aranasal sinusitis cannot be entirely excluded. 5. Small right mastoid effusion. POS: [facility]
[2017-05-10] MEDS: Lisinopril 2.5 MG TAB PO SCH (13:53)
[2017-05-10] MEDS: Ibuprofen 600 MG TAB PO SCH (13:53)
[2017-05-10] MEDS: Floranex Packet PO SCH (13:53)
[2017-05-10] MEDS: Potassium Chloride 20 MEQ TAB PO SCH (13:53)
[2017-05-10] MEDS: Folic Acid 1 MG TAB PO SCH (15:06)
[2017-05-10] MEDS: Stress 600 With Zinc 1 TAB PO SCH (15:06)
[2017-05-10] MEDS: Citalopram 20 MG TAB PO SCH (15:06)
[2017-05-10] MEDS ORDERED: Dexamethasone 20 MG/5 ML VIAL SLOW IVP SCH (15:15)
[2017-05-10] MEDS ORDERED: ISOVUE-370 76%-LOCM 1 ML ONE (16:35)
[2017-05-10] MEDS ORDERED: EPINEPHrine 1 MG/ML AMP ONE (18:09)
[2017-05-10] MEDS ORDERED: Fentanyl 100 MCG/2 ML VIAL ONE (18:13)
[2017-05-10] MEDS ORDERED: Midazolam HCl 2 mg/2 ml Vial ONE (18:13)
[2017-05-10] MEDS ORDERED: Lidocaine 1% w/Epinephrine 1:200K 30 ML VIAL ONE (18:34)
[2017-05-10] MEDS ORDERED: Oxymetazoline HCl 0.05% ( 15 ML ) ONE (18:39)
[2017-05-10] MEDS ORDERED: Propofol 200 MG/20 ML VIAL ONE (18:43)
[2017-05-10] MEDS ORDERED: PHENYLEPHRINE-NS 100 MCG/ML 10 ML SYRINGE ONE (18:43)
[2017-05-10 18:49] LABS: Mean Platelet Volume 9.6 fL (7.4-10.4); White Blood Cell (WBC) Count 6.9 thou/uL (4.8-10.8)
[2017-05-10 19:03] LABS: Anisocytosis SLIGHT = 6-15 cells (100X) (0-5/hpf); Band 14 % (5-11); Macrocytosis SLIGHT = 6-15 cells (100X) (0-5/hpf); Neutrophil 75 % (42-75); Polychromasia SLIGHT = 2-3 cells (100X) (0-2/hpf); Target Cells SLIGHT = 2-5 cells (100X) (0-1/hpf)
[2017-05-10] MEDS ORDERED: Ferric Subsulfate 8 ML BOT ONE (19:03)
--- NOTE | 2017-05-10 23:00 | RAD ---
AP ABDOMEN: Date: 05-10-17 History: Confirmation of gastric tube placement. FINDINGS: Nasogastric tube is noted in place with the catheter overlying the left upper quadrant and the tip o verlying the expected location of the gastric fundus. Multiple surgical clips overlie the right uppe r quadrant. Degenerative changes are seen in the spine. Nonspecific bowel gas pattern is present. IMPRESSION: Nasogastric tube noted in place with tip overlying the expected location of the gastric fundus. POS: [facility]
--- NOTE | 2017-05-10 23:04 | OP ---
DATE OF PROCEDURE: 05/10/2017 PREOPERATIVE DIAGNOSES: 1. Oral cavity/oropharyngeal bleeding. 2. Blood loss anemia. POSTOPERATIVE DIAGNOSES: 1. Oral cavity/oropharyngeal bleeding. 2. Blood loss anemia. PROCEDURE PERFORMED: 1. Emergent exam under anesthesia with control of oropharyngeal bleeding. 2. Direct laryngoscopy. SURGEON: Dr. Joselo Millre. ESTIMATED BLOOD LOSS: 50 mL COMPLICATIONS: None. ANESTHESIA: GETA. DESCRIPTION OF PROCEDURE: Patient was transferred to the operating room in the ICU bed. A shoulder roll was placed and general anesthesia was obtained by the Anesthesia staff. The tube remained in its position. Orogastric tube was removed from the oral cavity, there are large blood clots noted t hroughout the oral cavity. The patient was placed in suspension by using a combination of Dedo sandra ngoscope as well as the Abdulkadir-Vijay mouth gag. The oral cavity was examined. There were multiple l acerations involving the right glossopharyngeal fold on the right side as well as multiple laceratio ns down the right lateral pharyngeal wall. This extended to the hypopharyngeal area, but did not pe netrate into the pyriform sinus or below the level of the postcricoid mucosa. The endotracheal tube was visualized and was noted to be within good position. There were also small lacerations on the right aryepiglottic fold area. There were small abrasions on the tongue and small lacerations that were bleeding on the tongue area that correlated with the patient's poor dentition. These areas wer e controlled with Bovie electrocautery hemostasis. Monsel solution was then applied to some of the exposed in raw mucosal areas and this right lateral pharyngeal area as well and they were irrigated. A new orogastric tube was then placed on the left pyriform sinus into the stomach and was confirme d with the air sounds in the stomach. The orogastric tube was then suctioned, only approximately 20 -30 mL of old blood was suctioned. The patient tolerated the procedure well.
[2017-05-11] MEDS: Clindamycin/D5W 300 MG in Premix Bag 1 BAG IVPB SCH ×4 (02:00→20:34)
[2017-05-11] MEDS: Propofol 1,000 MG/100 ML VIAL IV PRN ×5 (03:51→23:37)
[2017-05-11 04:02] LABS: Oxyhemoglobin 84.8 % (94.0-97.0); Sodium 138 mmol/L (135-148)
[2017-05-11 04:06] LABS: Mechanical Tidal Volume 450 ml; Modified Allen's Test POSITIVE; Vent YES
[2017-05-11 04:07] LABS: Mode SIMV; Pressure Support 11 cmH2O
[2017-05-11 04:52] LABS: #Lymphocytes 0.8 thou/uL (1.20-3.40); #Monocytes 0.1 thou/uL (0.11-0.59); #Neutrophils 4.1 thou/uL (1.40-6.50); %Basophils 0.2 % (0.0-1.0); %Eosinophils 0.1 % (0.0-10.0); %Lymphocytes 15.3 % (21.0-51.0); %Monocytes 2.2 % (0.0-10.0); Hematocrit 24.5 % (36.0-47.0); Mean Platelet Volume 9.7 fL (7.4-10.4); Red Blood Cell (RBC) Count 2.33 mill/uL (4.20-5.40)
[2017-05-11 05:48] LABS: Anion Gap 13 mmol/L (10-20); BUN (Urea Nitrogen) 29 mg/dL (9.8-20.1); Calc. Creatinine Clearance 162 mL/min (70-130); Calcium 7.2 mg/dL (7.8-10.44); Carbon Dioxide 23 mmol/L (22-29); Chloride 96 mmol/L (98-107); Estimated GFR-MDRD 64; Magnesium 1.5 mg/dL (1.6-2.6)
--- NOTE | 2017-05-11 05:55 | CON ---
DATE OF CONSULTATION: 05/10/2017 REASON FOR CONSULTATION: The patient seen in ICU for evaluation of oral bleeding. HISTORY OF PRESENT ILLNESS: This is a 62-year-old female who was pending discharged from the hospit al; however, last night had a respiratory event, was found to be hypoxic and respiratory distress. The patient is morbidly obese and posed a significant intubation problem; fortunately, general endot rhoda intubation was obtained. There was some leaking around the endotracheal tube cuff and so a reintubation was performed successfully. The patient has been bleeding since the initial intubation from the oral cavity and nasal cavity area. Packs were placed in the nasal cavity and there is sti ll persistent oral cavity bleeding, likely related to the intubation. Currently, the patient is in the ICU, on propofol. The patient is still coughing against the endotracheal tube and the vent and there is still leakage of fresh red blood from the oral cavity. Her hemoglobin to this point has be en stable. PAST MEDICAL HISTORY: Diabetes, hypertension. MEDICATIONS: Include Eliquis blood thinner, which was held this morning and a blood pressure medici ne she is required a little bit of Levophed drip and IV sedation with propofol. PHYSICAL EXAMINATION: GENERAL: The patient is intubated in the ICU, morbidly obese. There is some fresh red blood coming from the oral cavity. HEENT: Examination after sedation was provided to the patient of the oral cavity suggested some mukesh sh red blood that was visualized in the posterior oropharynx. There was ecchymoses and bruising not ed on the soft palate as well as the tonsil pillars bilaterally. On the right side of the tonsil, t here is a small laceration which was cauterized with silver nitrate. There is still persistent amou nts of mild posterior pharyngeal oozing and ecchymoses in the submental area and the chin area. Dilan al cavity, bilateral nasal packs were in place and showed no evidence of bleeding. ASSESSMENT: Oral cavity and oropharyngeal bleeding, status post traumatic intubation. Currently, t he majority of the blood appears to be arising when the patient is Valsalva against the ventilator a nd recommend to keep her sedation and observation. There is likely underlying laceration, which hop efully will coagulate in the next few hours. If not, we may explore possible exam under anesthesia and direct laryngoscopy and pharyngoscopy of this area.
--- NOTE | 2017-05-11 07:02 | PDOC.FM ---
- Subjective Subjective: Patient is intubated and sedated. - Objective Vital Signs & Weight: Vital Signs (12 hours) Temp Pulse Resp BP Pulse Ox 05/11/17 06:00 17 05/11/17 04:15 57 L 119/57 L 05/11/17 04:00 97.6 F 19 05/11/17 02:00 19 05/11/17 01:28 90 L 05/11/17 00:50 61 104/53 L 05/11/17 00:00 98.1 F 19 05/10/17 22:00 19 05/10/17 20:02 63 132/64 05/10/17 20:00 97.6 F 63 19 92 L Weight Admit Weight 158.757 kg Weight 154.1 kg Most Recent Monitor Data Heart Rate from ECG 56 NIBP 87/47 NIBP BP-Mean 58 Respiration from ECG 17 SpO2 93 I&O: 05/09/17 05/10/17 05/11/17 06:59 06:59 06:59 Intake Total 840 3212.1 2930.1 Output Total 416 1175 Balance 840 2796.1 1755.1 Result Diagrams: 05/11/17 03:30 05/11/17 03:30 <Mary Fernandez - Last Filed: 05/11/17 09:02> - Objective Vital Signs & Weight: Vital Signs (12 hours) Temp Pulse Resp BP Pulse Ox 05/11/17 10:00 18 05/11/17 08:00 97.7 F 63 19 94 L 05/11/17 07:14 53 L 93/47 L 05/11/17 07:00 97.7 F 05/11/17 06:00 17 05/11/17 04:15 57 L 119/57 L 05/11/17 04:00 97.6 F 19 05/11/17 02:00 19 05/11/17 01:28 90 L 05/11/17 00:50 61 104/53 L 05/11/17 00:00 98.1 F 19 Weight Admit Weight 158.757 kg Weight 154.1 kg Most Recent Monitor Data Heart Rate from ECG 60 NIBP 90/46 NIBP BP-Mean 52 Respiration from ECG 19 SpO2 94 I&O: 05/10/17 05/11/17 05/12/17 06:59 06:59 06:59 Intake Total 3212.1 2930.1 0 Output Total 416 1175 100 Balance 2796.1 1755.1 -100 Result Diagrams: 05/11/17 03:30 05/11/17 03:30 <Valeria Madrid - Last Filed: 05/11/17 11:08> Phys Exam - Physical Examination Constitutional: NAD dried blood surrounding nose and mouth, PERRL Respiratory: no wheezing, no rhonchi, clear to auscultation bilateral technically difficult exam Cardiovascular: RRR, no significant murmur Gastrointestinal: soft, non-tender, no distention hypoactive Bowel sounds Musculoskeletal: no edema withdraws to pain Deviation from normal: erythema to LLE improving -: Erythema significantly less than previous deliniated marking of erythema <Mary Fernandez - Last Filed: 05/11/17 09:02> Dx/Plan (1) Acute blood loss anemia Code(s): D62 - ACUTE POSTHEMORRHAGIC ANEMIA Status: Acute Plan: s/p control of oropharyngeal lacerations. oropharyngeal bleeding now resolved. S/P 1 unit PRBC. S/P 2 units FFP. S/P kcentra hgb now 7.6 however no active bleeding. Will recheck hgb later today but do not plan for transfusion at this time. (2) Acute on chronic respiratory failure with hypoxia and hypercapnia Code(s): J96.21 - ACUTE AND CHRONIC RESPIRATORY FAILURE WITH HYPOXIA; J96.22 - ACUTE AND CHRONIC RESPIRATORY FAILURE WITH HYPERCAPNIA Status: Acute Plan: transferred to CCU and intubated on 05/10/17 -unclear etiology for respiratory failure. -vent mgmt per pulmonology (3) Hypotension Status: Chronic Plan: off levophed. Cont to monitor BP, no addition of antihypertensives. (4) Cellulitis of leg Code(s): L03.119 - CELLULITIS OF UNSPECIFIED PART OF LIMB Status: Acute Plan: clindamycin day 6. improving. Plan to complete 14 day course. (5) Macrocytic anemia Code(s): D53.9 - NUTRITIONAL ANEMIA, UNSPECIFIED Status: Chronic Plan: likely worsening appearance of anemia this AM is dilutional (6) History of tobacco abuse Code(s): Z87.891 - PERSONAL HISTORY OF NICOTINE DEPENDENCE Status: Acute (7) COPD (chronic obstructive pulmonary disease) Status: Acute (8) Hypoventilation associated with obesity Code(s): E66.2 - MORBID (SEVERE) OBESITY WITH ALVEOLAR HYPOVENTILATION Status : Chronic (9) Paroxysmal a-fib Code(s): I48.0 - PAROXYSMAL ATRIAL FIBRILLATION Status: Acute (10) Pulmonary hypertension Code(s): I27.2 - OTHER SECONDARY PULMONARY HYPERTENSION * DO NOT USE * Status : Acute (11) Hyponatremia Code(s): E87.1 - HYPO-OSMOLALITY AND HYPONATREMIA Status: Acute Plan: cont to monitor daily. <Mary Fernandez - Last Filed: 05/11/17 09:02> Attending Addendum - Attending Addendum I personally evaluated the patient and discussed the management with Dr. Fernandez I agree with the History, Examination, Assessment and Plan documented above with any addition or exceptions noted below- Patient intubated and sedated; starting to wake up more with decreased sedation. Afebrile VSS A/P: 1) Acute on chronic respiratory failure- stable; wean as per pulmonary, 2) Traumatic intubation- has bleeding from mouth; ENT evaluated and laceration cauterized; no further bleeding noted; appreciate ENT assistance. 3) Cellulitis- improved; continue abx. <Valeria Madrid - Last Filed: 05/11/17 11:08>
[2017-05-11] MEDS: Levothyroxine Sodium 125 MCG TAB PER TUBE SCH ×2 (08:26→10:02)
[2017-05-11] MEDS ORDERED: Levothyroxine Sodium 125 MCG TAB PER TUBE SCH (08:30)
[2017-05-11] MEDS: Stress 600 With Zinc 1 TAB PO SCH (08:33)
[2017-05-11] MEDS: Folic Acid 1 MG TAB PO SCH (08:33)
[2017-05-11] MEDS: Citalopram 20 MG TAB PO SCH (08:33)
--- NOTE | 2017-05-11 09:01 | RAD ---
RADIOGRAPH CHEST 1 VIEW: Date: 05-11-17 Time: 3:17 a.m. HISTORY: 62-year-old female in respiratory failure. COMPARISON: 05-10-17 at 2:00 a.m. FINDINGS: Endotracheal tube has been retracted slightly, such that it is approximately 2.5 to 3 cm superior to the kathleen. There has been no other major interval change. NG tube is visualized. Cardiomegaly. Mix ed interstitial and alveolar densities heterogeneously distributed in the left lung. Probable bilate ral pleural effusions. Small airspace density in right upper lobe. Low image resolution due to body habitus. IMPRESSION: 1. Slight retraction of endotracheal tube to appropriate position. 2. No other interval change. 3. Cardiomegaly and bilateral pleural effusions. 4. Airspace densities and interstitial densities, unchanged. JD POS: HYACINTH
[2017-05-11] MEDS ORDERED: Furosemide 20 MG/2 ML VIAL SLOW IVP SCH (09:45)
[2017-05-11] MEDS ORDERED: Magnesium 2 GM/NS 0.9% 100 ML 2 GM in Premix Bag 1 BAG IVPB SCH (09:45)
--- NOTE | 2017-05-11 10:12 | PRG ---
DATE OF SERVICE: 05/11/2017 SERVICE: Pulmonary Medicine. INTERVAL HISTORY: The patient is doing great from a respiratory standpoint. Her bleeding in her mo uth was stopped yesterday surgically. She cannot provide any additional elements of the history. Luis de la garza were in the process of lightning up her sedation. She remains profoundly volume overloaded. Oxyg en requirements went up overnight, likely associated with the increasing volume. Otherwise, there h as been no interval change to her condition. There were no overnight fevers. PHYSICAL EXAMINATION: VITAL SIGNS: Afebrile, pulse 60, blood pressure 102/51, respirations 17, saturation 95% on 50% FiO2 and PEEP of 5. GENERAL: The patient is intubated and sedated. HEENT: Normocephalic, atraumatic. Sclerae are white, conjunctivae pink. Oral and nasal mucosa is moist without lesions. LUNGS: Decent air entry. Crackles are present dependently. HEART: Normal rate, regular. ABDOMEN: Soft, nontender, nondistended. Bowel sounds positive. MUSCULOSKELETAL: No cyanosis or clubbing. There is 2+ pitting throughout. GENITOURINARY: Magana catheter in place. NEUROLOGIC: Grossly nonfocal. She withdraws from noxious stimuli in all 4 extremities appropriatel y. Pupils equal, round, and reactive. LABORATORY DATA: WBC 5.0, hemoglobin 7.6, and platelets 78,000. INR 1.5. A pH 7.48, pCO2 37, pO2 of 48 associated with a saturation of 87%. Creatinine 0.90, which has resolved to baseline. Sodium 128, chloride 96. Magnesium 1.5. Blood cultures x2 are unremarkable. IMAGING: Chest x-ray demonstrates endotracheal tube in good position. There is cardiomegaly and bi lateral pleural effusions present. There is interstitial airspace opacifications. Overall, these f indings are consistent with volume overload. ASSESSMENT: 1. Acute hypoxic respiratory failure, secondary likely volume overload. 2. Severe sepsis, improving. 3. Cellulitis. 4. Acute blood loss anemia secondary to tonsillar laceration, status post surgical intervention. 5. Acute kidney injury. PLAN: We will trend hemoglobins in the afternoon. Our threshold for transfusion will be 7 unless s he develops any additional instabilities. We will back off on her sedation and wake the patient up as tolerated. We ultimately need to get a significant amount volume off of this patient before we c onsider extubation. Currently, her volume status and oxygen requirements are the barrier to extubat ion. We will continue to hold Eliquis for the time being. CRITICAL CARE TIME: 30 minutes.
[2017-05-11] MEDS ORDERED: Dextrose 50% Abboject 50 ML SYRINGE SLOW IVP PRN (13:14)
[2017-05-11] MEDS ORDERED: Dextrose 5% in Water 1,000 ML IV PRN (13:14)
[2017-05-11 14:03] LABS: Hematocrit 26.8 % (36.0-47.0)
[2017-05-11] MEDS: HumaLOG 300 UNITS/3 ML VIAL SC PRN (23:44)
[2017-05-12] MEDS: Clindamycin/D5W 300 MG in Premix Bag 1 BAG IVPB SCH ×4 (02:07→20:30)
[2017-05-12] MEDS: Propofol 1,000 MG/100 ML VIAL IV PRN ×2 (02:58→06:39)
[2017-05-12 04:54] LABS: Anion Gap 9 mmol/L (10-20); BUN (Urea Nitrogen) 35 mg/dL (9.8-20.1); Calc. Creatinine Clearance 175 mL/min (70-130); Calcium 7.7 mg/dL (7.8-10.44); Carbon Dioxide 28 mmol/L (22-29); Chloride 105 mmol/L (98-107); Estimated GFR-MDRD 69
[2017-05-12] MEDS: Furosemide 20 MG/2 ML VIAL SLOW IVP SCH ×2 (05:03→14:26)
[2017-05-12] MEDS: Levothyroxine Sodium 125 MCG TAB PER TUBE SCH (05:04)
[2017-05-12 05:05] LABS: #Lymphocytes 1.5 thou/uL (1.20-3.40); #Monocytes 0.8 thou/uL (0.11-0.59); %Basophils 0.2 % (0.0-1.0); %Eosinophils 0.1 % (0.0-10.0); %Lymphocytes 19.8 % (21.0-51.0); %Monocytes 11.2 % (0.0-10.0); Hematocrit 23.3 % (36.0-47.0); Mean Platelet Volume 10.3 fL (7.4-10.4); White Blood Cell (WBC) Count 7.3 thou/uL (4.8-10.8)
--- NOTE | 2017-05-12 06:52 | PDOC.FM ---
- Subjective Subjective: Patient sedated and intubated. Does not appear to be in any distress or pain during exam. - Objective Vital Signs & Weight: Vital Signs (12 hours) Temp Pulse Resp BP Pulse Ox 05/12/17 06:27 60 05/12/17 06:00 19 05/12/17 04:00 99.1 F 14 05/12/17 03:14 55 L 05/12/17 02:00 17 05/12/17 00:00 99 F 20 05/11/17 22:08 66 121/60 05/11/17 22:00 19 05/11/17 20:00 98.8 F 58 L 19 97 05/11/17 19:00 13 Weight Admit Weight 158.757 kg Weight 155.3 kg Most Recent Monitor Data Heart Rate from ECG 58 NIBP 115/58 NIBP BP-Mean 71 Respiration from ECG 19 SpO2 98 I&O: 05/10/17 05/11/17 05/12/17 06:59 06:59 06:59 Intake Total 3212.1 2930.1 843 Output Total 416 1175 2305 Balance 2796.1 5995.1 1462 Result Diagrams: 05/12/17 04:13 05/12/17 04:13 <Mary Fernandez - Last Filed: 05/12/17 11:13> - Objective Vital Signs & Weight: Vital Signs (12 hours) Temp Pulse Resp Pulse Ox 05/12/17 20:00 99 F 60 19 100 05/12/17 16:00 98.4 F 96 05/12/17 12:00 98.6 F 05/12/17 10:48 77 25 H 94 L 05/12/17 10:41 70 05/12/17 10:00 21 H Weight Admit Weight 158.757 kg Weight 155.3 kg Most Recent Monitor Data Heart Rate from ECG 60 NIBP 105/51 NIBP BP-Mean 62 Respiration from ECG 19 SpO2 98 I&O: 05/11/17 05/12/17 05/13/17 06:59 06:59 06:59 Intake Total 2930.1 843 742 Output Total 1175 2305 2225 Balance 1755.1 -5992 -4563 Result Diagrams: 05/12/17 04:13 05/12/17 04:13 <Valeria Madrid - Last Filed: 05/12/17 21:22> Phys Exam - Physical Examination Constitutional: NAD HEENT: PERRLA Respiratory: no wheezing, clear to auscultation bilateral Cardiovascular: RRR, no significant murmur Gastrointestinal: soft, non-tender, positive bowel sounds 2+ pitting edema in LLE, 1+ in RLE opens eyes to command <Mary Fernandez - Last Filed: 05/12/17 11:13> Dx/Plan (1) Acute blood loss anemia Code(s): D62 - ACUTE POSTHEMORRHAGIC ANEMIA Status: Acute Plan: 05/10- controlled 1 unit PRBC. 2 units FFP. kcentra initiate iron (2) Acute on chronic respiratory failure with hypoxia and hypercapnia Code(s): J96.21 - ACUTE AND CHRONIC RESPIRATORY FAILURE WITH HYPOXIA; J96.22 - ACUTE AND CHRONIC RESPIRATORY FAILURE WITH HYPERCAPNIA Status: Acute Plan: transferred to CCU and intubated on 05/10/17 -unclear etiology for respiratory failure. - hx of COPD, dCHF, KATE current fluid status is limiting extubation however responded nicely to lasix, cont diuresis. (3) Hypotension Status: Resolved Plan: resolved (4) Cellulitis of leg Code(s): L03.119 - CELLULITIS OF UNSPECIFIED PART OF LIMB Status: Acute Plan: clindamycin day 7. improving. Plan to complete 14 day course. (5) History of tobacco abuse Code(s): Z87.891 - PERSONAL HISTORY OF NICOTINE DEPENDENCE Status: Acute (6) COPD (chronic obstructive pulmonary disease) Status: Acute (7) Hypoventilation associated with obesity Code(s): E66.2 - MORBID (SEVERE) OBESITY WITH ALVEOLAR HYPOVENTILATION Status : Chronic (8) Paroxysmal a-fib Code(s): I48.0 - PAROXYSMAL ATRIAL FIBRILLATION Status: Chronic Plan: off eliqus however will need to discuss with cardiology if this patient meets criteria to cont anticoagulation (9) Pulmonary hypertension Code(s): I27.2 - OTHER SECONDARY PULMONARY HYPERTENSION * DO NOT USE * Status : Acute (10) Hyponatremia Code(s): E87.1 - HYPO-OSMOLALITY AND HYPONATREMIA Status: Resolved <Mary Fernandez - Last Filed: 05/12/17 11:13> Attending Addendum - Attending Addendum I personally evaluated the patient and discussed the management with Dr. Fernandez. I agree with the History, Examination, Assessment and Plan documented above with any addition or exceptions noted below.- Patient intubated but awake and following commands. Afebrile VSS A/P: 1) Anemia- stabel; continue to monitor, 2 ) Respiratory failure- continue weaning a spulmonary;possible extubation today or tomorrow. <Valeria Madrid - Last Filed: 05/12/17 21:22>
[2017-05-12] MEDS: Citalopram 20 MG TAB PO SCH (09:17)
[2017-05-12] MEDS: Folic Acid 1 MG TAB PO SCH (09:17)
[2017-05-12] MEDS: Stress 600 With Zinc 1 TAB PO SCH (09:29)
--- NOTE | 2017-05-12 11:24 | PRG ---
DATE OF SERVICE: 05/12/2017 SERVICE: Pulmonary Medicine INTERVAL HISTORY: The patient is doing fine from a respiratory standpoint. She denies any current fevers, chills, nausea, vomiting, chest pain, shortness of breath. She is intubated. She is wide a wake and comfortable. She is breathing on a spontaneous breathing trial with no difficulties. That being said, it was on 06/06. We dropped it down to 12/04 and we are going to check in 30 minutes to s whether or not she is still breathing comfortably. If she is, extubation will be considered. Th ere were no events overnight. PHYSICAL EXAMINATION: VITAL SIGNS: Afebrile, pulse 77, blood pressure 112/56, respirations 25, saturation 94% on 2 liters nasal cannula. GENERAL: The patient is awake, alert, no apparent distress. LUNGS: Decent air entry. There is no prolonged expiratory phase. There are crackles present throu ghout. HEART: Normal rate, regular. ABDOMEN: Soft, nontender, nondistended. Bowel sounds positive. MUSCULOSKELETAL: No cyanosis or clubbing. There is 2+ pitting in the left lower extremity, trace p itting the right lower extremity and 1+ pitting at the sacrum. GENITOURINARY: Magana catheter in place. NEUROLOGIC: Grossly nonfocal. LABORATORY DATA: WBC 7.3, hemoglobin 7.6 and roughly stable compared to yesterday morning, platelet s 114,000 and improving. INR 1.5. Basic metabolic profile is essentially unremarkable except for b icarbonate that has jumped to 35. Magnesium is normal. ASSESSMENT: 1. Acute hypoxic respiratory failure secondary to volume overload. 2. Severe sepsis, improving. 3. Cellulitis. 4. Acute blood loss anemia secondary to tonsillar laceration status post surgical intervention and resolution of bleeding. 5. Acute kidney injury, resolved. PLAN: We will continue the spontaneous breathing trial. A couple of doses of Lasix have already be en provided. We will repeat another dose this afternoon and try to get her 1-2 liters negative ove r the next 24 hours. If she meets criteria, extubation will be considered later this afternoon. We will continue to hold Eliquis for the time being. Critical care time: 30 minutes.
[2017-05-12] MEDS ORDERED: Furosemide 20 MG/2 ML VIAL SLOW IVP SCH (14:00)
[2017-05-13] MEDS: Clindamycin/D5W 300 MG in Premix Bag 1 BAG IVPB SCH ×2 (03:04→09:03)
[2017-05-13 04:39] LABS: Hematocrit 23.2 % (36.0-47.0)
[2017-05-13] MEDS: Levothyroxine Sodium 125 MCG TAB PER TUBE SCH (05:40)
[2017-05-13 05:43] LABS: BUN (Urea Nitrogen) 30 mg/dL (9.8-20.1); Calc. Creatinine Clearance 179 mL/min (70-130); Calcium 7.7 mg/dL (7.8-10.44); Carbon Dioxide 31 mmol/L (22-29); Chloride 103 mmol/L (98-107); Estimated GFR-MDRD 73
[2017-05-13] MEDS: Furosemide 20 MG/2 ML VIAL SLOW IVP SCH (05:48)
[2017-05-13 06:33] LABS: Anion Gap 7 mmol/L (10-20)
--- NOTE | 2017-05-13 06:42 | PDOC.FM ---
- Subjective Subjective: Mrs. Springer is resting comfortably. She is easily arousable. Denies pain. States taking liquids was not a problem and she is hungry. - Objective MAR Reviewed: Yes Vital Signs & Weight: Vital Signs (12 hours) Temp Pulse Resp Pulse Ox 05/13/17 04:00 99 F 05/13/17 00:00 98.9 F 05/12/17 20:00 99 F 60 19 100 Weight Admit Weight 158.757 kg Weight 151.5 kg Most Recent Monitor Data Heart Rate from ECG 57 NIBP 103/38 NIBP BP-Mean 48 Respiration from ECG 19 SpO2 100 I&O: 05/11/17 05/12/17 05/13/17 06:59 06:59 06:59 Intake Total 2930.1 843 1322 Output Total 1175 2305 3070 Balance 3090.1 -6271 -3830 Result Diagrams: 05/13/17 04:00 05/13/17 04:00 <Mary Fernandez - Last Filed: 05/13/17 06:40> - Objective Vital Signs & Weight: Vital Signs (12 hours) Temp Pulse Resp Pulse Ox 05/13/17 07:23 98.9 F 59 L 15 92 L 05/13/17 07:00 98.9 F 05/13/17 04:00 99 F 05/13/17 00:00 98.9 F Weight Admit Weight 158.757 kg Weight 151.5 kg Most Recent Monitor Data Heart Rate from ECG 57 NIBP 113/39 NIBP BP-Mean 69 Respiration from ECG 16 SpO2 91 I&O: 05/12/17 05/13/17 05/14/17 06:59 06:59 06:59 Intake Total 843 1322 Output Total 2305 3070 220 Balance -2996 -1200 -220 Result Diagrams: 05/13/17 04:00 05/13/17 04:00 <Valeria Madrid - Last Filed: 05/13/17 10:25> Phys Exam - Physical Examination Constitutional: NAD no evidence of cont bleeding in oropharynx. Respiratory: no wheezing crackles BLL Cardiovascular: no significant murmur bradycardic, reg rhythm Gastrointestinal: soft, non-tender, positive bowel sounds 2+ pitting edema Neurological: non-focal <Mary Fernandez - Last Filed: 05/13/17 06:40> Dx/Plan (1) Acute blood loss anemia Code(s): D62 - ACUTE POSTHEMORRHAGIC ANEMIA Status: Acute Plan: 05/10- controlled s/p surgical intervention and repear of tonsilar laceration 1 unit PRBC. 2 units FFP. kcentra Initiate iron BID now that taking oral. Will need follow up with PCP to check hgb and ferritin. (2) Acute on chronic respiratory failure with hypoxia and hypercapnia Code(s): J96.21 - ACUTE AND CHRONIC RESPIRATORY FAILURE WITH HYPOXIA; J96.22 - ACUTE AND CHRONIC RESPIRATORY FAILURE WITH HYPERCAPNIA Status: Resolved Plan: transferred to CCU and intubated on 05/10/17 -unclear etiology for respiratory failure. - hx of COPD, dCHF, KATE Extubated on 05/12/17. Maintaining saturation well. cont gentle diuresis likely 1 more day. Expect DC tomorrow. (3) Cellulitis of leg Code(s): L03.119 - CELLULITIS OF UNSPECIFIED PART OF LIMB Status: Acute Plan: clindamycin day 8. improving. Transition to oral later today. (4) Hypokalemia Code(s): E87.6 - HYPOKALEMIA Status: Acute Plan: replete today and tomorrow. 2/2 lasix. (5) History of tobacco abuse Code(s): Z87.891 - PERSONAL HISTORY OF NICOTINE DEPENDENCE Status: Acute (6) COPD (chronic obstructive pulmonary disease) Status: Chronic (7) Hypoventilation associated with obesity Code(s): E66.2 - MORBID (SEVERE) OBESITY WITH ALVEOLAR HYPOVENTILATION Status : Chronic (8) Paroxysmal a-fib Code(s): I48.0 - PAROXYSMAL ATRIAL FIBRILLATION Status: Chronic Plan: Restart eliquis likely tomorrow. (9) Pulmonary hypertension Code(s): I27.2 - OTHER SECONDARY PULMONARY HYPERTENSION * DO NOT USE * Status : Acute (10) Hyponatremia Code(s): E87.1 - HYPO-OSMOLALITY AND HYPONATREMIA Status: Resolved <Mary Fernandez - Last Filed: 05/13/17 06:40> Attending Addendum - Attending Addendum I personally evaluated the patient and discussed the management with Dr. Fernandez I agree with the History, Examination, Assessment and Plan documented above with any addition or exceptions noted below- Patient awake/alert; denies complaints; tolerating diet. Afebrile VSS. A/P: 1) Acute on chronic respiratory failure- now extubated and doing well. Continue O2 as she uses this at home; transfer to floor, 2) DM- stable, 3) Anemia- stable; start oral iron, 4) Cellulitis- transition back to po abx, 5) Disposition- start PT; may need SNF stay. <Valeria Madrid - Last Filed: 05/13/17 10:25>
[2017-05-13] MEDS ORDERED: Potassium Chloride 20 MEQ TAB PO SCH ×2 (08:00→10:00)
[2017-05-13] MEDS: Citalopram 20 MG TAB PO SCH (09:03)
[2017-05-13] MEDS: Ferrous Sulfate 325 MG TAB PO SCH ×2 (09:03→17:25)
[2017-05-13] MEDS: Folic Acid 1 MG TAB PO SCH (09:03)
[2017-05-13] MEDS: Stress 600 With Zinc 1 TAB PO SCH (09:03)
--- NOTE | 2017-05-13 10:03 | PRG ---
DATE OF SERVICE: 05/13/2017 SERVICE: Pulmonary Medicine. INTERVAL HISTORY: The patient is doing great from a cardiovascular and respiratory standpoint. She is on room air. Saturations are 93%-94%. She continues to diurese fairly well. She denies any current shortness of breath or chest discomfort. We are going to increase mobility as much as tolerated. PHYSICAL EXAMINATION: VITAL SIGNS: Afebrile, pulse 59, blood pressure 113/39, respirations 15, saturation 92% on room air. GENERAL: Patient is awake, alert, in no apparent distress. LUNGS: Decent air entry. Dependent crackles are present. HEART: Normal rate, regular. ABDOMEN: Soft, nontender, nondistended. Bowel sounds positive. MUSCULOSKELETAL: No cyanosis or clubbing. There is a 2+ pitting in the left lower extremity and trace pitting in the right lower extremity. This is slightly improved compared to yesterday. GENITOURINARY: Magana catheter in place. NEUROLOGIC: Grossly nonfocal. LABORATORY DATA: Hemoglobin 7.4. Potassium 3.4 and bicarbonate 31. Basic metabolic profile is, otherwise, unremarkable. Blood cultures x2 are negative. ASSESSMENT: 1. Acute hypoxic respiratory failure secondary to volume overload. 2. Severe sepsis, improving. 3. Cellulitis. 4. Acute blood loss anemia, secondary to tonsillar laceration, status post surgical intervention. 5. Acute kidney injury, resolved. 6. Obstructive sleep apnea. 7. Obesity hypoventilation syndrome. PLAN: I will back off on the Lasix to once daily. The patient is currently stable for transition out of the ICU to the medical floor. Once cleared by ENT , we will need to restart the Eliquis. Potassium will be replaced and we will add magnesium tomorrow morning. We will consider giving 1 unit of packed red blood cells, particularly if she threatens dropping below 7.0 in her hemoglobin. SALOMED
[2017-05-13] MEDS: Clindamycin 150 MG CAP PO SCH ×2 (11:55→17:25)
[2017-05-14] MEDS: Potassium Chloride 20 MEQ TAB PO SCH ×2 (00:04→09:21)
[2017-05-14] MEDS: Clindamycin 150 MG CAP PO SCH ×5 (00:04→23:03)
[2017-05-14 05:40] LABS: Anion Gap 8 mmol/L (10-20); BUN (Urea Nitrogen) 24 mg/dL (9.8-20.1); Calc. Creatinine Clearance 177 mL/min (70-130); Calcium 7.7 mg/dL (7.8-10.44); Carbon Dioxide 33 mmol/L (22-29); Chloride 103 mmol/L (98-107); Estimated GFR-MDRD 72; Magnesium 1.6 mg/dL (1.6-2.6)
[2017-05-14 05:41] LABS: Hematocrit 24.7 % (36.0-47.0)
[2017-05-14] MEDS: Furosemide 20 MG/2 ML VIAL SLOW IVP SCH (05:57)
[2017-05-14] MEDS: Levothyroxine Sodium 125 MCG TAB PER TUBE SCH (05:58)
--- NOTE | 2017-05-14 06:55 | PDOC.FM ---
- Subjective Subjective: Mrs. Springer is feeling better this morning. She has tolerated a diet well. Patient only able to sit on EOB for approx 5 min yesterday during PT. Will have her up in chair today and evaluate for rehab or SNF placement. - Objective Vital Signs & Weight: Vital Signs (12 hours) Temp Pulse Resp BP Pulse Ox 05/14/17 05:00 98.1 F 98 18 112/62 98 05/14/17 00:59 99.7 F H 60 18 115/56 L 98 05/13/17 21:37 98.9 F 58 L 20 106/65 93 L 05/13/17 20:00 98.9 F 57 L 16 94 L Weight Admit Weight 158.757 kg Weight 154.278 kg Most Recent Monitor Data Heart Rate from ECG 57 NIBP 133/50 NIBP BP-Mean 78 Respiration from ECG 18 SpO2 100 I&O: 05/12/17 05/13/17 05/14/17 06:59 06:59 06:59 Intake Total 843 1322 1200 Output Total 2305 3070 2270 Balance -1679 -9340 -9723 Result Diagrams: 05/14/17 05:15 05/14/17 05:15 <Mary Fernandez - Last Filed: 05/14/17 10:29> - Objective Vital Signs & Weight: Vital Signs (12 hours) Temp Pulse Resp BP Pulse Ox 05/14/17 08:00 98.7 F 64 20 118/62 95 05/14/17 05:00 98.1 F 98 18 112/62 98 05/14/17 00:59 99.7 F H 60 18 115/56 L 98 Weight Admit Weight 158.757 kg Weight 154.278 kg Most Recent Monitor Data Heart Rate from ECG 57 NIBP 133/50 NIBP BP-Mean 78 Respiration from ECG 18 SpO2 100 I&O: 05/13/17 05/14/17 05/15/17 06:59 06:59 06:59 Intake Total 1322 1200 Output Total 3070 2270 Balance -3859 -4646 Result Diagrams: 05/14/17 05:15 05/14/17 05:15 <Valeria Madrid - Last Filed: 05/14/17 10:44> Phys Exam - Physical Examination Constitutional: NAD HEENT: PERRLA, moist MMs, oral pharynx no lesions Respiratory: no wheezing, clear to auscultation bilateral Cardiovascular: RRR, no significant murmur erythema to LLE that is decreased from original cellulitis, tender 1+ pitting edema BLE, tender to palpation of LLE lateral aspect Neurological: non-focal <Mary Fernandez - Last Filed: 05/14/17 10:29> Dx/Plan (1) Acute blood loss anemia Code(s): D62 - ACUTE POSTHEMORRHAGIC ANEMIA Status: Acute Plan: 05/10- controlled s/p surgical intervention and repear of tonsilar laceration 1 unit PRBC. 2 units FFP. kcentra cont iron, hgb remains stable (2) Cellulitis of leg Code(s): L03.119 - CELLULITIS OF UNSPECIFIED PART OF LIMB Status: Acute Plan: clindamycin day 9. improving however power press tender. Will obtain soft tissue US of LLE (3) Hypokalemia Code(s): E87.6 - HYPOKALEMIA Status: Acute Plan: improved, cont potassium while on lasix (4) History of tobacco abuse Code(s): Z87.891 - PERSONAL HISTORY OF NICOTINE DEPENDENCE Status: Acute (5) COPD (chronic obstructive pulmonary disease) Status: Chronic (6) Hypoventilation associated with obesity Code(s): E66.2 - MORBID (SEVERE) OBESITY WITH ALVEOLAR HYPOVENTILATION Status : Chronic Plan: Patient will need outpatient sleep study. She has not been using a CPAP at home and needs a repeat sleep study. She has been encouraged to follow up with this. (7) Paroxysmal a-fib Code(s): I48.0 - PAROXYSMAL ATRIAL FIBRILLATION Status: Chronic Plan: Consult with ENT for restarting eliquis (8) Pulmonary hypertension Code(s): I27.2 - OTHER SECONDARY PULMONARY HYPERTENSION * DO NOT USE * Status : Chronic Plan: patient requires chronic O2 at home at 2 liters. (9) Hyponatremia Code(s): E87.1 - HYPO-OSMOLALITY AND HYPONATREMIA Status: Resolved Plan: cont to monitor daily. (10) Diastolic CHF Code(s): I50.30 - UNSPECIFIED DIASTOLIC (CONGESTIVE) HEART FAILURE Status: Chronic Qualifiers: Congestive heart failure chronicity: chronic Qualified Code(s): I50.32 - Chronic diastolic (congestive) heart failure Plan: Patient has nicely diuresed approx 4 liters. Would recommend another day of eliquis, has been transitioned to oral. But likely does not need to cont halfway at this point. <Mary Fernandez - Last Filed: 05/14/17 10:29> Attending Addendum - Attending Addendum I personally evaluated the patient and discussed the management with Dr. Fernandez I agree with the History, Examination, Assessment and Plan documented above with any addition or exceptions noted below- Patient c/o pain in left leg; unable to weight bear with PT. Afebrile VSS A/P: 1) Acute on chronic respiratory failure- improved, 2) Cellulitis- more tender over lateral aspect of left calf; ? area of fluctuance- will obtain USG of soft tissue to evaluate for abscess formation; if negative consider MRI as patient has been on antibiotics for 9 days and overall redness improved but continued pain. 3) DM- stable. 4) Deconditioning- mobilize with PT as tolerated; may need SNF/rehab for strengthening <Valeria Madrid - Last Filed: 05/14/17 10:44>
[2017-05-14] MEDS: Furosemide 40 MG TAB PO SCH (09:21)
[2017-05-14] MEDS: Ferrous Sulfate 325 MG TAB PO SCH ×2 (09:21→17:24)
[2017-05-14] MEDS: Folic Acid 1 MG TAB PO SCH (09:22)
[2017-05-14] MEDS: Citalopram 20 MG TAB PO SCH (09:22)
[2017-05-14] MEDS: Stress 600 With Zinc 1 TAB PO SCH (09:22)
[2017-05-14] MEDS ORDERED: Apixaban 5 MG TAB PO SCH ×2 (11:30)
--- NOTE | 2017-05-14 12:08 | ULT ---
LIMITED ULTRASOUND OF THE SOFT TISSUES OF DISTAL LEFT LOWER EXTREMITY: Date: 05-14-17 History: Patient with celitis and soft tissue swelling at the level of the ankle. FINDINGS: There is a predominately anechoic collection with internal echogenic material present in the soft ti ssues anterolaterally at the level of the left ankle. This collection measures 3.7 cm x 1.2 cm x samreen roximately 4.7 cm. Entire craniocaudal dimension is difficult to measure due to length. Color flow e valuation does not demonstrate flow in this structure. This may represent a hematoma secondary to in fection. There is subcutaneous edema in the soft tissues of the lower calf as well. No other finding s. IMPRESSION: 1. Anechoic collection with internal echogenic material and what appears to be septations in the sub cutaneous soft tissues anteromedial aspect left lower ankle. No flow is demonstrated, and this may r epresent a hematoma; although, infection cannot be entirely excluded. 2. Subcutaneous edema at the level of the calf. POS: HYACINTH
--- NOTE | 2017-05-14 19:11 | PRG ---
DATE OF SERVICE: 05/14/2017 SERVICE: Pulmonary Medicine. INTERVAL HISTORY: The patient is doing really well from a respiratory standpoint. She has been wea abdi down to 1 liter nasal cannula. She denies any shortness of breath or chest discomfort. She con tinues to have fairly exquisite tenderness of the bilateral legs. Otherwise, there has been no inte rval change to her condition. PHYSICAL EXAMINATION: VITAL SIGNS: Afebrile, pulse 64, blood pressure 118/62, respirations 20, saturation 95% on 1 liter nasal cannula. GENERAL: The patient is awake and alert, in no apparent distress. LUNGS: Excellent air entry. Dependent crackles are present. HEART: Normal rate, regular. ABDOMEN: Soft, nontender, nondistended. Bowel sounds positive. MUSCULOSKELETAL: No cyanosis or clubbing. No pitting in the bilateral lower extremities. NEUROLOGIC: Grossly nonfocal. LABORATORY DATA: Hemoglobin is 7.7 and roughly stable. INR 1.5. Basic metabolic profile was essen tially unremarkable. Bicarbonate is trending upward to 33. Sodium 140 and roughly stable. Magnesi um 1.6, calcium 7.7. Blood cultures x2 are unremarkable. IMAGING: Soft tissue ultrasound demonstrates a collection of fluid with internal echogenic material with septations in the subcutaneous soft tissue and anteromedial aspect of the left lower ankle. I nfection and hematoma are in the differential. There is extensive subcutaneous edema present. ASSESSMENT: 1. Acute hypoxic respiratory failure, slowly improving. 2. Severe sepsis, improving. 3. Cellulitis with possible abscess. 4. Acute blood loss anemia, secondary to tonsil laceration, status post surgical intervention. 5. Acute kidney injury, resolved. PLAN: We will continue diuresing the patient on a daily basis. She remains fairly significantly vo lume overloaded. Despite no fever, normal white count, normal neutrophil count, aspiration of this fluid collection is recommended to make certain she is not suffering from an abscess. Pulmonary rory l continue to follow for the time being. We will need to work on aggressive mobilization as the pat ient remains extraordinarily weak from this hospital stay.
[2017-05-14] MEDS: Apixaban 5 MG TAB PO SCH (20:41)
[2017-05-15] MEDS ORDERED: Gabapentin 100 MG CAP PO PRN (00:06)
[2017-05-15] MEDS: Ibuprofen 800 MG TAB PO PRN ×2 (01:03→22:03)
[2017-05-15] MEDS: Levothyroxine Sodium 125 MCG TAB PER TUBE SCH (05:28)
[2017-05-15] MEDS: Clindamycin 150 MG CAP PO SCH ×4 (05:28→22:58)
[2017-05-15] MEDS ORDERED: Acetaminophen 325 MG TAB PO SCH (07:15)
--- NOTE | 2017-05-15 07:19 | PDOC.FM ---
- Subjective Subjective: Pt reports doing well over night. Reports having pain in her leg and pain in her head. Says it is hard for her to move due to the pain in her leg. Denies any chest pain or SOB. Pt wondering when she can go home. Says she uses a walker at home. - Objective MAR Reviewed: Yes Vital Signs & Weight: Vital Signs (12 hours) Temp Pulse Resp BP Pulse Ox 05/14/17 20:00 98.3 F 67 20 116/57 L 92 L Weight Admit Weight 158.757 kg Weight 149.685 kg Most Recent Monitor Data Heart Rate from ECG 57 NIBP 133/50 NIBP BP-Mean 78 Respiration from ECG 18 SpO2 100 I&O: 05/14/17 05/15/17 05/16/17 06:59 06:59 06:59 Intake Total 1200 Output Total 2270 4350 Balance -1070 -4350 Result Diagrams: 05/14/17 05:15 05/14/17 05:15 Radiology Reviewed by me: Yes Radiology: US Soft Tissue L. Lower Extremity: Anechoic collection w/ internal echogenic material and what appears to be septations in the subq soft tissues anteromedial aspect l. lower ankle. No flow is demonstrate, may represent hematoma; although, infection cannot be entirely excluded 2. subq edema at level of calf Phys Exam - Physical Examination Respiratory: no wheezing, no rhonchi, clear to auscultation bilateral Cardiovascular: RRR, no significant murmur, no rub Gastrointestinal: soft, non-tender, no distention, positive bowel sounds Musculoskeletal: edema present (in L. lower extremity, +1 edema) Neurological: non-focal, normal sensation Deviation from normal: cellulitis improved below marking, still red and tender to palpation Dx/Plan (1) Cellulitis of leg Code(s): L03.119 - CELLULITIS OF UNSPECIFIED PART OF LIMB Status: Acute Qualifiers: (2) Acute blood loss anemia Code(s): D62 - ACUTE POSTHEMORRHAGIC ANEMIA Status: Acute (3) History of tobacco abuse Code(s): Z87.891 - PERSONAL HISTORY OF NICOTINE DEPENDENCE Status: Acute (4) Hypokalemia Code(s): E87.6 - HYPOKALEMIA Status: Acute (5) COPD (chronic obstructive pulmonary disease) Status: Chronic (6) Hyponatremia Code(s): E87.1 - HYPO-OSMOLALITY AND HYPONATREMIA Status: Resolved (7) Diastolic CHF Code(s): I50.30 - UNSPECIFIED DIASTOLIC (CONGESTIVE) HEART FAILURE Status: Chronic Qualifiers: Congestive heart failure chronicity: chronic Qualified Code(s): I50.32 - Chronic diastolic (congestive) heart failure (8) Hypoventilation associated with obesity Code(s): E66.2 - MORBID (SEVERE) OBESITY WITH ALVEOLAR HYPOVENTILATION Status : Chronic (9) Paroxysmal a-fib Code(s): I48.0 - PAROXYSMAL ATRIAL FIBRILLATION Status: Chronic - Plan Plan: (1) Acute blood loss anemia 05/10- controlled s/p surgical intervention and repear of tonsilar laceration 1 unit PRBC. 2 units FFP. kcentra Hgb staying stable -on b12 and folic acid. MCV improving -cont iron, (2) Cellulitis of leg -Will start lore tylenol for pain. clindamycin day 10. improving however folding machine tender. US LLE shows possible collection hematoma vs infection, may need possible further exploration (3) Hypokalemia Code(s): E87.6 - HYPOKALEMIA Status: Acute Plan: improved, cont potassium while on lasix (4) History of tobacco abuse (5) COPD (chronic obstructive pulmonary disease) -On O2, continue to monitor vital signs. (6) Hypoventilation associated with obesity Patient will need outpatient sleep study. She has not been using a CPAP at home and needs a repeat sleep study. She has been encouraged to follow up with this. (7) Paroxysmal a-fib Started eliquis, continue to monitor (8) Pulmonary hypertension patient requires chronic O2 at home at 2 liters. (9) Hyponatremia Labs stable yesterday, will check labs as needed to follow (10) Diastolic CHF Patient has nicely diuresed approx 4 liters. On eliquis at this point. Will discuss detention use, Pt breathing better. But likely does not need to cont detention at this point.
[2017-05-15] MEDS ORDERED: Furosemide 20 MG TAB PO SCH (09:00)
[2017-05-15] MEDS: Ferrous Sulfate 325 MG TAB PO SCH ×2 (09:17→17:05)
[2017-05-15] MEDS: Stress 600 With Zinc 1 TAB PO SCH (09:18)
[2017-05-15] MEDS: Apixaban 5 MG TAB PO SCH ×2 (09:18→20:47)
[2017-05-15] MEDS: Furosemide 40 MG TAB PO SCH (09:18)
[2017-05-15] MEDS: Citalopram 20 MG TAB PO SCH (09:18)
[2017-05-15] MEDS: Folic Acid 1 MG TAB PO SCH (09:18)
[2017-05-15] MEDS ORDERED: Benzonatate 100 MG CAP PO PRN (09:32)
--- NOTE | 2017-05-15 14:32 | PRG ---
DATE OF SERVICE: 05/15/2017 SERVICE: Pulmonary Medicine. INTERVAL HISTORY: The patient is doing fine from a respiratory standpoint. She is breathing fairly comfortably though still feel sick. She has exquisite tenderness in the left leg. Otherwise, ther e has been no interval change to her condition. She remains extraordinarily weak yesterday, working with physical therapy and made her a little bit dizzy. As such, she is back in bed. PHYSICAL EXAMINATION: VITAL SIGNS: Afebrile, pulse 59, blood pressure 116/62, respirations 18, saturation 95% on 1 liter nasal cannula. GENERAL: Patient is awake and alert, no apparent distress. LUNGS: Decent air entry. There is no prolonged expiratory phase, wheeze, rhonchi or crackles. HEART: Normal rate, regular. ABDOMEN: Soft, nontender, nondistended. Bowel sounds positive. MUSCULOSKELETAL: No cyanosis or clubbing. No pitting in the bilateral lower extremities. NEUROLOGIC: Grossly nonfocal. LABORATORY DATA: Blood sugars ranged from 99-147. Blood cultures x2 are negative to date. ASSESSMENT: 1. Acute hypoxic respiratory failure secondary to volume overload, slowly improving. 2. Severe sepsis, resolving. 3. Cellulitis with possible abscess. 4. Acute blood loss anemia secondary to tonsil laceration, status post surgical intervention. 5. Acute kidney injury, resolved. PLAN: At this point, the patient has no further requirement for Inpatient Pulmonary or Critical Car e opinion. She will continue working aggressively with physical therapy in order to regain her stre ngth. I would like for her to be in a chair at least twice daily, but this is not happening because the patient is an extraordinarily weak and does not like getting out of bed presently. She has no further requirements for Pulmonary or Critical Care opinion. Please watch volume status closely and intermittently a dose Lasix if necessary.
--- NOTE | 2017-05-15 14:33 | PRG ---
DATE OF SERVICE: 05/15/2017 SUBJECTIVE: Ms. Springer is resting quietly in bed, in no distress. She continues to have some cell ulitis and increased pain in her left lower extremity. Ultrasound does show the possibility of eith er hematoma or soft tissue abscess at her left lower extremity. We will consult Surgery to consider aspiration and/or I and D.
--- NOTE | 2017-05-15 16:08 | CON ---
DATE OF CONSULTATION: 05/15/2017 REQUESTING PHYSICIAN: Dr. Óscar Donato. HISTORY OF PRESENT ILLNESS: This is a 62-year-old morbidly obese woman with a history of diabetes mellitus, who was admitted on 05/07/2017 with worsening left lower extremity pain associated with venous stasis disease. The patient is currently being treated with antibiotics. The patient denies any fevers or chills. PAST MEDICAL HISTORY: Significant for morbid obesity, COPD, type 2 diabetes mellitus, obstructive sleep apnea, chronic depression, hypothyroidism, paroxysmal atrial fibrillation and chronic venous stasis. SURGICAL HISTORY: Pertinent for cholecystectomy, tonsillectomy and adenoidectomy, and most recent emergent direct laryngoscopy with control of oropharyngeal bleeding on 05/10/2017. REVIEW OF SYSTEMS: Essentially unremarkable except for as stated in past medical history and chief complaint. PHYSICAL EXAMINATION: GENERAL: This reveals a 62-year-old morbidly obese woman, who is otherwise coherent and interactive and appears stated age. The patient is alert and oriented x3. She appears to be in no acute distress at the time of my evaluation. VITAL SIGNS: Today includes blood pressure 116/62, pulse is 59, respiratory rate is 18, maximum temperature in the last 24 hours is 98.3 degrees Fahrenheit. Oxygen saturation 95% on 2 liters by nasal cannula oxygen. HEENT: Reveals normocephalic and atraumatic. HEART: Reveals regular rate and rhythm, no murmurs or gallops auscultated. LUNGS: Clear to auscultation bilaterally. Breathing is unlabored. ABDOMEN: Morbidly obese. She has no abdominal tenderness to palpation. NEUROLOGIC: Reveals no focal deficits present. EXTREMITIES: Reveals pitting bilateral lower extremity edema, which extends from the ankles to the knees bilaterally. There is also purplish skin discoloration from the ankles to approximately 20 cm above the left medial and lateral malleoli. Indurated skin is tender to palpation. There is no crepitance palpated. No drainage from the wound itself. IMAGING: I have personally reviewed the soft tissue ultrasound of the left lower extremity, which was obtained yesterday revealing the small fluid collections with no air fluid levels. PERTINENT LABORATORY FINDINGS: Today includes the most recent CBC of 2016 with 7300 white blood cells, hemoglobin 7.6, hematocrit is 23.3, platelet count is 114,000. Serial hemoglobins have remained stable in the interim. Metabolic profile from yesterday, sodium 140, potassium 4.0, chloride is 103, bicarbonate 33, BUN 24, creatinine 0.81, glucose 89 and magnesium 1.6. IMPRESSION: 1. Lower extremity venous stasis dermatitis, no clinical or laboratory evidence of abscess. 2. Morbid obesity. 3. Type 2 diabetes mellitus. 4. History of tobacco abuse. 5. History of chronic obstructive pulmonary disease. There is no acute surgical indication for this venous stasis disease. 6. I will recommend bilateral lower extremity DENYS hose stockings if the patient can tolerate that. 7. Continue with current antibiotic therapy. Above findings and recommendations have been discussed with the patient in the presence of her nurse. She indicated understanding of information given. I have answered their questions. Thank you again, Dr. Donato for allowing me the opportunity to participate in the care of this patient. JLUIS
[2017-05-15] MEDS: HumaLOG 300 UNITS/3 ML VIAL SC PRN (21:55)
[2017-05-16] MEDS: Levothyroxine Sodium 125 MCG TAB PER TUBE SCH (05:46)
[2017-05-16] MEDS: Clindamycin 150 MG CAP PO SCH ×4 (05:46→22:59)
[2017-05-16] MEDS: Acetaminophen 325 MG TAB PO PRN ×3 (05:54→20:46)
--- NOTE | 2017-05-16 07:38 | PDOC.FM ---
- Subjective Subjective: Pt complaining of throat pain this morning. Reminded her she has medication to use now for throat pain. Does not remember getting up and walking around yesterday. Does not recall talking to anyone about rehab. Denies any other concerns or complaints at this time. Pain being well controlled. - Objective MAR Reviewed: Yes Vital Signs & Weight: Vital Signs (12 hours) Temp Pulse Resp BP Pulse Ox 05/15/17 20:47 98.2 F 66 20 92 L 05/15/17 20:00 98.2 F 66 20 113/58 L 92 L Weight Admit Weight 158.757 kg Weight 151.137 kg Most Recent Monitor Data Heart Rate from ECG 57 NIBP 133/50 NIBP BP-Mean 78 Respiration from ECG 18 SpO2 100 I&O: 05/15/17 05/16/17 05/17/17 06:59 06:59 06:59 Output Total 4350 2450 Balance -4350 -2450 Result Diagrams: 05/14/17 05:15 05/14/17 05:15 Radiology Reviewed by me: Yes Radiology: All old radiology reviewed. No new images to review Phys Exam - Physical Examination HEENT: moist MMs, oral pharynx no lesions Neck: no nodes, supple Respiratory: clear to auscultation bilateral difficult to auscultate due to body habitus Cardiovascular: RRR, no significant murmur, no rub Gastrointestinal: soft, non-tender, no distention, positive bowel sounds Musculoskeletal: edema present (From chronic venostasis) Neurological: non-focal, normal sensation Psychiatric: normal affect, A&O x 3 Dx/Plan (1) Cellulitis of leg Code(s): L03.119 - CELLULITIS OF UNSPECIFIED PART OF LIMB Status: Acute Qualifiers: (2) Acute blood loss anemia Code(s): D62 - ACUTE POSTHEMORRHAGIC ANEMIA Status: Acute (3) History of tobacco abuse Code(s): Z87.891 - PERSONAL HISTORY OF NICOTINE DEPENDENCE Status: Acute (4) Hypokalemia Code(s): E87.6 - HYPOKALEMIA Status: Acute (5) COPD (chronic obstructive pulmonary disease) Status: Chronic (6) Hyponatremia Code(s): E87.1 - HYPO-OSMOLALITY AND HYPONATREMIA Status: Resolved (7) Diastolic CHF Code(s): I50.30 - UNSPECIFIED DIASTOLIC (CONGESTIVE) HEART FAILURE Status: Chronic Qualifiers: Congestive heart failure chronicity: chronic Qualified Code(s): I50.32 - Chronic diastolic (congestive) heart failure (8) Hypoventilation associated with obesity Code(s): E66.2 - MORBID (SEVERE) OBESITY WITH ALVEOLAR HYPOVENTILATION Status : Chronic (9) Paroxysmal a-fib Code(s): I48.0 - PAROXYSMAL ATRIAL FIBRILLATION Status: Chronic - Plan Plan: (1) Acute blood loss anemia 05/10- controlled s/p surgical intervention and repear of tonsilar laceration 1 unit PRBC. 2 units FFP. kcentra Hgb staying stable, Repeat CBC pending this morning -on b12 and folic acid. MCV improving -cont iron, (2) Cellulitis of leg -Will start lore tylenol for pain. clindamycin day 11. improving. US LLE shows possible collection hematoma vs infection -General Surgery consulted- Dr. Woods, does not think abscess, recommends stockings to help with fluid -Rehab screening pending (3) Hypokalemia Code(s): E87.6 - HYPOKALEMIA Status: Acute Plan: improved, cont potassium while on lasix (4) History of tobacco abuse (5) COPD (chronic obstructive pulmonary disease) -On O2, continue to monitor vital signs. (6) Hypoventilation associated with obesity Patient will need outpatient sleep study. She has not been using a CPAP at home and needs a repeat sleep study. She has been encouraged to follow up with this. (7) Paroxysmal a-fib Started eliquis, continue to monitor (8) Pulmonary hypertension patient requires chronic O2 at home at 2 liters. (9) Hyponatremia Labs stable yesterday, will check labs as needed to follow (10) Diastolic CHF On eliquis at this point. Will discuss terminal make up operator use, Pt breathing better. But likely does not need to cont intermediate at this point.
[2017-05-16 08:10] LABS: #Basophils 0.1 thou/uL (0.0-0.2); #Eosinphils 0.2 thou/uL (0.0-0.7); #Lymphocytes 2.3 thou/uL (1.20-3.40); #Monocytes 0.5 thou/uL (0.11-0.59); #Neutrophils 2.5 thou/uL (1.40-6.50); %Eosinophils 4.1 % (0.0-10.0); %Lymphocytes 41.2 % (21.0-51.0); %Monocytes 9.1 % (0.0-10.0); Hematocrit 24.4 % (36.0-47.0); Mean Platelet Volume 8.6 fL (7.4-10.4); Red Blood Cell (RBC) Count 2.36 mill/uL (4.20-5.40); White Blood Cell (WBC) Count 5.6 thou/uL (4.8-10.8)
[2017-05-16] MEDS: Stress 600 With Zinc 1 TAB PO SCH (08:31)
[2017-05-16] MEDS: Citalopram 20 MG TAB PO SCH (08:31)
[2017-05-16] MEDS: Ferrous Sulfate 325 MG TAB PO SCH ×2 (08:31→17:04)
[2017-05-16] MEDS: Folic Acid 1 MG TAB PO SCH (08:31)
[2017-05-16] MEDS: Apixaban 5 MG TAB PO SCH ×2 (08:31→20:47)
[2017-05-16] MEDS: Furosemide 40 MG TAB PO SCH (08:31)
--- NOTE | 2017-05-16 16:42 | ADD-PRG ---
DATE OF SERVICE: 05/16/2017 Please add it as an addendum to the note of Dr. Óscar Donato. Ms. Springer is resting quietly in be d. She is reluctant to sit in the bedside chair. She is very deconditioned, but is having difficul ty cooperating with physical therapy. She was seen in consultation by the Surgical Service and we a ppreciate their input. They did not feel that there was an abscess present and recommended we freda nue current management with IV antibiotics. In examining her left lower extremity, there is likely an element of stasis dermatitis as I believe the cellulitis has greatly improved. We will continue her current management.
[2017-05-16] MEDS: Ibuprofen 800 MG TAB PO PRN (22:59)
[2017-05-17] MEDS: Clindamycin 150 MG CAP PO SCH ×4 (05:39→23:37)
[2017-05-17] MEDS: Levothyroxine Sodium 125 MCG TAB PER TUBE SCH (05:39)
[2017-05-17 06:23] LABS: BUN (Urea Nitrogen) 17 mg/dL (9.8-20.1); Calc. Creatinine Clearance 176 mL/min (70-130); Calcium 7.8 mg/dL (7.8-10.44); Estimated GFR-MDRD 71
[2017-05-17 06:31] LABS: Anion Gap 12 mmol/L (10-20); Carbon Dioxide 36 mmol/L (22-29); Chloride 98 mmol/L (98-107)
--- NOTE | 2017-05-17 08:01 | PDOC.FM ---
- Subjective Subjective: Patient c/o throat pain. Not coughing up blood. She also co leg pain especially when leg is being touched. She does not use a farnsworth at home. Uses toilet. - Objective Vital Signs & Weight: Vital Signs (12 hours) Temp Pulse Resp BP Pulse Ox 05/17/17 07:51 98.2 F 56 L 16 124/62 97 Weight Admit Weight 158.757 kg Weight 152.452 kg Most Recent Monitor Data Heart Rate from ECG 57 NIBP 133/50 NIBP BP-Mean 78 Respiration from ECG 18 SpO2 100 I&O: 05/16/17 05/17/17 05/18/17 06:59 06:59 06:59 Intake Total 120 Output Total 2450 1000 Balance -2450 -880 Result Diagrams: 05/16/17 07:46 05/17/17 04:43 Radiology: 05/14- soft tissue LLE- anechoic collections with septations in subcutaneous soft tissues, subcutaneous edema <Mary Fernandez - Last Filed: 05/17/17 08:00> - Objective Vital Signs & Weight: Vital Signs (12 hours) Temp Pulse Resp BP Pulse Ox 05/17/17 08:00 98.2 F 56 L 16 97 05/17/17 07:51 98.2 F 56 L 16 124/62 97 Weight Admit Weight 158.757 kg Weight 152.452 kg Most Recent Monitor Data Heart Rate from ECG 57 NIBP 133/50 NIBP BP-Mean 78 Respiration from ECG 18 SpO2 100 I&O: 05/16/17 05/17/17 05/18/17 06:59 06:59 06:59 Intake Total 120 480 Output Total 2450 1000 Balance -2450 -880 480 Result Diagrams: 05/16/17 07:46 05/17/17 04:43 <Darius Gill - Last Filed: 05/17/17 10:46> Phys Exam - Physical Examination Constitutional: NAD no thrush or exudates appreciated in oropharynx Respiratory: no wheezing, clear to auscultation bilateral Cardiovascular: RRR, no significant murmur Gastrointestinal: soft, non-tender, positive bowel sounds Musculoskeletal: no edema soft 2 cm x 2 cm pocket over left anterolatral aspect of leg bruised like appearance of skin over left medial ankle. <Mary Fernandez - Last Filed: 05/17/17 08:00> Dx/Plan (1) Acute blood loss anemia Code(s): D62 - ACUTE POSTHEMORRHAGIC ANEMIA Status: Acute Plan: 05/10- controlled s/p surgical intervention and repear of tonsilar laceration 1 unit PRBC. 2 units FFP. kcentra cont iron, follow up with PCP (2) Cellulitis of leg Code(s): L03.119 - CELLULITIS OF UNSPECIFIED PART OF LIMB Status: Acute Plan: clindamycin day 11. Area of swelling over anterolateral aspect of LLE, not thought to be an abscess but is tender. cont for total of 14 days (3) Hypokalemia Code(s): E87.6 - HYPOKALEMIA Status: Resolved Plan: cont home regimen- 20 mEq PO daily with q2day lasix (4) History of tobacco abuse Code(s): Z87.891 - PERSONAL HISTORY OF NICOTINE DEPENDENCE Status: Acute (5) COPD (chronic obstructive pulmonary disease) Status: Chronic (6) Hypoventilation associated with obesity Code(s): E66.2 - MORBID (SEVERE) OBESITY WITH ALVEOLAR HYPOVENTILATION Status : Chronic Plan: Patient will need outpatient sleep study. She has not been using a CPAP at home and needs a repeat sleep study. She has been encouraged to follow up with this. (7) Paroxysmal a-fib Code(s): I48.0 - PAROXYSMAL ATRIAL FIBRILLATION Status: Chronic Plan: Eliquis restarted. Cont and should be seen by cardiology outpatient for continued mgmt. (8) Pulmonary hypertension Code(s): I27.2 - OTHER SECONDARY PULMONARY HYPERTENSION * DO NOT USE * Status : Chronic Plan: patient requires chronic O2 at home at 2 liters. (9) Hyponatremia Code(s): E87.1 - HYPO-OSMOLALITY AND HYPONATREMIA Status: Resolved Plan: cont to monitor daily. (10) Diastolic CHF Code(s): I50.30 - UNSPECIFIED DIASTOLIC (CONGESTIVE) HEART FAILURE Status: Chronic Qualifiers: Congestive heart failure chronicity: chronic Qualified Code(s): I50.32 - Chronic diastolic (congestive) heart failure Plan: Patient's home dose of lasix to be restarted q2day <Mary Fernandez - Last Filed: 05/17/17 08:00> Attending Addendum - Attending Addendum I personally evaluated the patient and discussed the management with Dr. Fernandez. I agree with the History, Examination, Assessment and Plan documented above with any addition or exceptions noted below. Patient here, reports exquisite tenderness on her L leg, with visible lesion/ mass. She has significant tenderness to palpation, unable to tell if there is fluctuance due to inability to tolerate exam. Due to ultrasound findings and the associated cellulitis that is now treated, I would be concerned for abscess versus infected hematoma that may need drainage. Continue abx. Hgb stable, no evidence of active bleeding. Await placement, possibly SNF for therapy once d/c from hospital. <Darius Gill - Last Filed: 05/17/17 10:46>
[2017-05-17] MEDS: Ferrous Sulfate 325 MG TAB PO SCH ×2 (08:44→17:11)
[2017-05-17] MEDS: Folic Acid 1 MG TAB PO SCH (08:45)
[2017-05-17] MEDS: Apixaban 5 MG TAB PO SCH ×2 (08:45→20:29)
[2017-05-17] MEDS: Stress 600 With Zinc 1 TAB PO SCH (08:45)
[2017-05-17] MEDS: Citalopram 20 MG TAB PO SCH (08:45)
[2017-05-17] MEDS: Aluminum & Magnesium Hydroxide 60 ML, Lidocaine 2% Viscous Solution 30 ML, diphenhydrAM... SSW PRN ×6 (13:00→21:03)
[2017-05-18] MEDS: Ondansetron HCl/PF 4 MG/2 ML Vial IVP PRN (01:24)
[2017-05-18] MEDS: Levothyroxine Sodium 125 MCG TAB PER TUBE SCH (05:45)
[2017-05-18] MEDS: Clindamycin 150 MG CAP PO SCH ×4 (05:45→23:27)
[2017-05-18] MEDS: Ferrous Sulfate 325 MG TAB PO SCH ×2 (07:41→17:13)
[2017-05-18] MEDS: Apixaban 5 MG TAB PO SCH ×2 (07:41→20:09)
[2017-05-18] MEDS: Citalopram 20 MG TAB PO SCH (07:41)
[2017-05-18] MEDS: Folic Acid 1 MG TAB PO SCH (07:41)
--- NOTE | 2017-05-18 07:46 | PDOC.FM ---
- Subjective Subjective: Patient doing well. She still c/o pain in LLE. She was not seen by PT yesterday. She has agreed to SNF, pending approval today. Eating and breathing well. Throat pain improved. - Objective MAR Reviewed: Yes Vital Signs & Weight: Vital Signs (12 hours) Temp Pulse Resp BP Pulse Ox 05/18/17 01:18 93 L 05/17/17 20:30 98.5 F 57 L 18 05/17/17 20:00 98.5 F 57 L 18 131/65 97 Weight Admit Weight 158.757 kg Weight 151.5 kg Most Recent Monitor Data Heart Rate from ECG 57 NIBP 133/50 NIBP BP-Mean 78 Respiration from ECG 18 SpO2 100 I&O: 05/17/17 05/18/17 05/19/17 06:59 06:59 06:59 Intake Total 120 1240 Output Total 1000 Balance -880 1240 Result Diagrams: 05/16/17 07:46 05/17/17 04:43 <Mary Fernandez - Last Filed: 05/18/17 10:43> - Objective Vital Signs & Weight: Vital Signs (12 hours) Temp Pulse Resp BP Pulse Ox 05/18/17 08:00 98.1 F 57 L 22 H 119/67 97 05/18/17 01:18 93 L Weight Admit Weight 158.757 kg Weight 151.5 kg Most Recent Monitor Data Heart Rate from ECG 57 NIBP 133/50 NIBP BP-Mean 78 Respiration from ECG 18 SpO2 100 I&O: 05/17/17 05/18/17 05/19/17 06:59 06:59 06:59 Intake Total 120 1240 440 Output Total 1000 Balance -880 1240 440 Result Diagrams: 05/16/17 07:46 05/17/17 04:43 <Darius Gill - Last Filed: 05/18/17 11:17> Phys Exam - Physical Examination Constitutional: NAD HEENT: PERRLA, moist MMs Respiratory: no wheezing, no rales, clear to auscultation bilateral Cardiovascular: RRR, no significant murmur Gastrointestinal: soft, non-tender, positive bowel sounds Musculoskeletal: no edema pain with passive extension of LLE. left Anteromedial LE lump improved but filter press tender head. <Mary Fernandez - Last Filed: 05/18/17 10:43> Dx/Plan (1) Cellulitis of leg Code(s): L03.119 - CELLULITIS OF UNSPECIFIED PART OF LIMB Status: Acute Plan: clindamycin day 12. Improving although still has pain, particularly with extension. cont clindamycin for total of 14 days Tedhose recommended by surgery. Patient declines wearing them. Will evaluate further with non ontrast MRI bc she is unable to stand which she could previously do. (2) Acute blood loss anemia Code(s): D62 - ACUTE POSTHEMORRHAGIC ANEMIA Status: Chronic Plan: 05/10- controlled s/p surgical intervention and repear of tonsilar laceration 1 unit PRBC. 2 units FFP. kcentra Cont iron. (3) Hypokalemia Code(s): E87.6 - HYPOKALEMIA Status: Resolved Plan: cont home regimen- 20 mEq PO daily with q2day lasix (4) History of tobacco abuse Code(s): Z87.891 - PERSONAL HISTORY OF NICOTINE DEPENDENCE Status: Acute (5) COPD (chronic obstructive pulmonary disease) Status: Chronic (6) Hypoventilation associated with obesity Code(s): E66.2 - MORBID (SEVERE) OBESITY WITH ALVEOLAR HYPOVENTILATION Status : Chronic Plan: Encouraged to follow up for outpatient sleep study. Follow up with PCP for orders (7) Paroxysmal a-fib Code(s): I48.0 - PAROXYSMAL ATRIAL FIBRILLATION Status: Chronic Plan: Cont eliquis and follow up with cardiology outpatient. (8) Pulmonary hypertension Code(s): I27.2 - OTHER SECONDARY PULMONARY HYPERTENSION * DO NOT USE * Status : Chronic Plan: patient requires chronic O2 at home at 2 liters. (9) Hyponatremia Code(s): E87.1 - HYPO-OSMOLALITY AND HYPONATREMIA Status: Resolved (10) Diastolic CHF Code(s): I50.30 - UNSPECIFIED DIASTOLIC (CONGESTIVE) HEART FAILURE Status: Chronic Qualifiers: Congestive heart failure chronicity: chronic Qualified Code(s): I50.32 - Chronic diastolic (congestive) heart failure Plan: Volume down now, will hold lasix today. <Mary Fernandez - Last Filed: 05/18/17 10:43> Attending Addendum - Attending Addendum I personally evaluated the patient and discussed the management with Dr. Fernandez. I agree with the History, Examination, Assessment and Plan documented above with any addition or exceptions noted below. Patient continues to do well from cellulitis standpoint as well as from her throat trauma and bleeding. Also, the possible fluid collection in the LLE appears somewhat smaller today. However, patient now reports severe tenderness to palpation of the upper medial leg, just distal to her L knee. There is no erythema and no abnormalities felt on exam. She continues to have pain with passive ROM of the L foot, and that pain is present in the L leg. Her anterior compartments feel symmetric, and I have low suspicion for compartment syndrome. She possibly has some tenosynovitis that is result of her cellulitis or from her area of fluid collection. Will discuss with radiology appropriate imaging, MRI vs. U/S vs CT to further evaluate as patient would not be able to ambulate in her current state. Continue clinda and await radiology result. If no abnormalities noted, patient should be stable for transfer to SNF once approved as she will continue to get medications there along with therapy. <Darius Gill - Last Filed: 05/18/17 11:17>
[2017-05-18] MEDS: Stress 600 With Zinc 1 TAB PO SCH (08:50)
[2017-05-18] MEDS: Aluminum & Magnesium Hydroxide 60 ML, Lidocaine 2% Viscous Solution 30 ML, diphenhydrAM... SSW PRN ×3 (20:09)
--- NOTE | 2017-05-18 20:55 | MRI ---
MRI OF LEFT ANKLE AND LOWER LEG REGION PERFORMED WITH AND WITHOUT CONTRAST ENHANCEMENT: 05/18/17 HISTORY: Pain, evaluation of fluid collection. COMPARISON: An ultrasound examination done 05/14/17. A fluid collection measuring 1 cm in thickness x approximately 3.8 cm in transverse dimension and 6 cm in length is seen along the anterior medial cortex of the distal tibia. It shows a somewhat T1 hy perintense margin and therefore is difficult to assess but does appear to show some enhancement. The area was shown to be a complex fluid collection on ultrasound. There is no signs of any underlying osteomyelitis changes. There is no deep extension of this finding into the compartments of the knee. There is some mild superficial edema change within the soft tissues. Considerable motion artifact is present. There is some tenosynovitis changes of the peroneus longus and previous tendon sheath and some changes of the flexor hallucis longus. The Achilles tendon is in tact. IMPRESSION: 1. Complex fluid collection in the subcutaneous tissue along the anteromedial cortex of the dis hakeem tibia without underlying osteomyelitis. This could just present a hematoma. If infection is clin ically suspected, aspiration could be performed. 2. Tenosynovitis changes of the common peroneal tendon sheath and flexor hallucis longus tendon . POS: [facility]
[2017-05-19 05:08] LABS: Hematocrit 25.1 % (36.0-47.0)
[2017-05-19] MEDS: Clindamycin 150 MG CAP PO SCH ×3 (05:50→17:04)
[2017-05-19] MEDS: Levothyroxine Sodium 125 MCG TAB PO SCH (05:51)
[2017-05-19] MEDS: Apixaban 5 MG TAB PO SCH ×2 (07:45→20:15)
[2017-05-19] MEDS: Ferrous Sulfate 325 MG TAB PO SCH ×2 (07:45→17:05)
[2017-05-19] MEDS: Citalopram 20 MG TAB PO SCH (07:46)
[2017-05-19] MEDS: Folic Acid 1 MG TAB PO SCH (07:46)
[2017-05-19] MEDS: Stress 600 With Zinc 1 TAB PO SCH (07:46)
--- NOTE | 2017-05-19 08:54 | PDOC.FM ---
- Subjective Subjective: Patient seen at bedside with Dr. Pretty. She is still in pain in left lower leg. She also c/o pain in her throat but worse with swallowing. She also c/o throbbing ear pain. - Objective Vital Signs & Weight: Vital Signs (12 hours) Temp Pulse Resp BP Pulse Ox 05/19/17 08:03 98.1 F 58 L 16 110/63 96 05/19/17 05:00 98.2 F 60 20 115/66 95 05/19/17 02:39 93 L 05/19/17 00:32 98.2 F 60 18 108/65 95 Weight Admit Weight 158.757 kg Weight 151.557 kg Most Recent Monitor Data Heart Rate from ECG 57 NIBP 133/50 NIBP BP-Mean 78 Respiration from ECG 18 SpO2 100 I&O: 05/18/17 05/19/17 05/20/17 06:59 06:59 06:59 Intake Total 1240 1410 Balance 1240 1410 Result Diagrams: 05/19/17 04:22 05/19/17 04:22 Radiology: MRI LLE- Tenosynovitis changes of common peroneal tendon sheath and flexor hallucis. complex fluid collection of subcutaneous tissue along anteromedial cortex of distal tibia <Mary Fernandez - Last Filed: 05/19/17 09:44> - Objective Vital Signs & Weight: Vital Signs (12 hours) Temp Pulse Pulse Resp BP BP Pulse Ox 05/19/17 11:10 98.1 F 58 L 16 102/62 95 05/19/17 10:28 58 L 110/63 05/19/17 08:03 98.1 F 58 L 16 110/63 96 05/19/17 08:00 98.1 F 58 L 16 05/19/17 05:00 98.2 F 60 20 115/66 95 Pulse Ox 05/19/17 11:10 05/19/17 10:28 96 05/19/17 08:03 05/19/17 08:00 05/19/17 05:00 Weight Admit Weight 158.757 kg Weight 151.557 kg Most Recent Monitor Data Heart Rate from ECG 57 NIBP 133/50 NIBP BP-Mean 78 Respiration from ECG 18 SpO2 100 I&O: 05/18/17 05/19/17 05/20/17 06:59 06:59 06:59 Intake Total 1240 1410 Balance 1240 1410 Result Diagrams: 05/19/17 09:34 05/19/17 09:34 <Adán Gillson Oswald - Last Filed: 05/19/17 15:22> Phys Exam - Physical Examination HEENT: PERRLA right pharyngeal exudate, right cervical tender lymphadenopathy sclerosis of right TM Cardiovascular: RRR, no significant murmur pain with passive extension, tender along anteromedial aspect of LLE no edema in BLE Neurological: moves all 4 limbs <Mary Fernandez - Last Filed: 05/19/17 09:44> Dx/Plan (1) Cellulitis of leg Code(s): L03.119 - CELLULITIS OF UNSPECIFIED PART OF LIMB Status: Acute Plan: improving however evidence for abscess in anteromedial aspect of LLE. Plan for ortho to drain in OR later today. clindamycin day 13. (2) Odynophagia Code(s): R13.10 - DYSPHAGIA, UNSPECIFIED Status: Acute Plan: Likely post op pain. Will discuss with ENT if expected. (3) Acute blood loss anemia Code(s): D62 - ACUTE POSTHEMORRHAGIC ANEMIA Status: Chronic Plan: cont iron , recheck outpatient. Hgb remains stable. (4) History of tobacco abuse Code(s): Z87.891 - PERSONAL HISTORY OF NICOTINE DEPENDENCE Status: Acute (5) COPD (chronic obstructive pulmonary disease) Status: Chronic (6) Hypoventilation associated with obesity Code(s): E66.2 - MORBID (SEVERE) OBESITY WITH ALVEOLAR HYPOVENTILATION Status : Chronic Plan: Encouraged to follow up for outpatient sleep study. Follow up with PCP for orders (7) Paroxysmal a-fib Code(s): I48.0 - PAROXYSMAL ATRIAL FIBRILLATION Status: Chronic Plan: Cont eliquis and follow up with cardiology outpatient. (8) Pulmonary hypertension Code(s): I27.2 - OTHER SECONDARY PULMONARY HYPERTENSION * DO NOT USE * Status : Chronic Plan: patient requires chronic O2 at home at 2 liters. (9) Diastolic CHF Code(s): I50.30 - UNSPECIFIED DIASTOLIC (CONGESTIVE) HEART FAILURE Status: Chronic Qualifiers: Congestive heart failure chronicity: chronic Qualified Code(s): I50.32 - Chronic diastolic (congestive) heart failure Plan: well controlled, hold lasix <Mary Fernandez - Last Filed: 05/19/17 09:44> Attending Addendum - Attending Addendum I personally evaluated the patient and discussed the management with Dr. Fernandez. I agree with the History, Examination, Assessment and Plan documented above with any addition or exceptions noted below. Patient doing well from cellulitis standpoint. Her MRI yesterday showed fluid collection concerning for abscess, the same collection noted on U/S. Ortho was consulted due to the presence of tenosynovitis likely aggrevated by the fluid collection. Patient is to go to OR for drainage sometime today. Continue Clindamycin therapy. Anticipate issues with wound healing due to her chronic venous stasis. As for her throat and ear pain, will discuss with ENT to see if this is expected so far out from her pharyngeal injury. <Darius Gill - Last Filed: 05/19/17 15:22>
[2017-05-19] MEDS: Ondansetron HCl/PF 4 MG/2 ML Vial IVP PRN (09:48)
[2017-05-19 10:13] LABS: #Basophils 0.1 thou/uL (0.0-0.2); #Eosinphils 0.3 thou/uL (0.0-0.7); #Lymphocytes 1.9 thou/uL (1.20-3.40); #Monocytes 0.6 thou/uL (0.11-0.59); #Neutrophils 2.6 thou/uL (1.40-6.50); %Basophils 1.3 % (0.0-1.0); %Eosinophils 4.7 % (0.0-10.0); %Lymphocytes 35.9 % (21.0-51.0); %Monocytes 10.2 % (0.0-10.0); Hematocrit 26.3 % (36.0-47.0); Mean Platelet Volume 8.9 fL (7.4-10.4); Red Blood Cell (RBC) Count 2.51 mill/uL (4.20-5.40); White Blood Cell (WBC) Count 5.4 thou/uL (4.8-10.8)
--- NOTE | 2017-05-19 10:22 | CON ---
DATE OF CONSULTATION: 05/19/2017 HISTORY OF PRESENT ILLNESS: Ms. Springer is a 62-year-old female with morbid obesity. She was admit yulisa to the hospital approximately 2 weeks ago for cellulitis of the left lower extremity. She has c hronic venous stasis as well. She has diabetes. She has been on intravenous antibiotics and more r ecently just clindamycin. Her cellulitis has improved, but she has been unable to ambulate and has continued pain in the left lower leg. An MRI was obtained which does show a fluid collection along the anterior tibialis tendon and anteromedial tibia. This is the site of her pain. This is thought to be an abscess. Orthopedics was consulted for evaluation. PAST MEDICAL HISTORY: Morbid obesity, COPD, diabetes, obstructive sleep apnea, hypothyroidism, atri al fibrillation, venous stasis, depression. PAST SURGICAL HISTORY: Includes cholecystectomy, tonsillectomy, adenoidectomy, section. REVIEW OF SYSTEMS: Positive for left leg pain and pain with motion. Otherwise, she denies positive s on 10 point review of systems. ALLERGIES: PENICILLIN and AMOXICILLIN. PHYSICAL EXAMINATION: VITAL SIGNS: Temperature is 98.1, pulse is 58, respiratory 16, oxygen saturation 96. GENERAL: The patient is lying supine. She is obese, alert, no apparent distress. HEENT: Normocephalic, atraumatic. ABDOMEN: Again, obese, nontender. RESPIRATORY: Breathing comfortably. MUSCULOSKELETAL: The patient's left leg has evidence of venous stasis with thickened skin. She has neuropathy with poor sensation over the foot and ankle. She is able to gently wiggle the toes. Sh e has significant pain with passive stretch of the ankle tendons. She has tenderness to palpation o abdoul the anteromedial ankle. There is fluctuance and a palpable fluid collection over the anteromedi al distal tibia. There is faint erythema. IMAGES: MRI of the left lower extremity was reviewed, which shows a 6 cm x 3 cm fluid collection al katarzyna the anteromedial tibia consistent with abscess versus hematoma. ASSESSMENT AND PLAN: Resolving cellulitis with venous stasis and morbid obesity, now without focal abscess of the left lower extremity. PLAN: At this point, I think the patient would benefit from a small irrigation and debridement proc edure. I will plan to take her to the operating room for I\T\D of the left leg. We will perform a small drainage procedure to hopefully speed up her recovery and prevent further complications of katarzyna oing infection. She will continue intravenous antibiotics. She should be n.p.o. until after poornima edwards
[2017-05-19 10:27] LABS: BUN (Urea Nitrogen) 13 mg/dL (9.8-20.1); Calc. Creatinine Clearance 191 mL/min (70-130); Calcium 8.2 mg/dL (7.8-10.44); Estimated GFR-MDRD 79
[2017-05-19 10:36] LABS: Anion Gap 6 mmol/L (10-20); Chloride 95 mmol/L (98-107)
[2017-05-19 10:40] LABS: Carbon Dioxide Greater than 37 mmol/L (22-29)
[2017-05-19 12:21] VITALS: BMI 59.2
[2017-05-19] MEDS ORDERED: Bupivacaine PF 0.5% 30 ML VIAL ONE (14:49)
[2017-05-19] MEDS ORDERED: Neomycin-Polymyxin 1 ML AMP ONE (14:49)
[2017-05-19] MEDS ORDERED: Dextrose 50% Abboject 50 ML SYRINGE ONE (15:29)
[2017-05-19] MEDS ORDERED: Non-Formulary Medication 1 EACH PO PRN (15:54)
[2017-05-19] MEDS ORDERED: Promethazine HCl 25 MG/ML VIAL IM/IV PRN (15:54)
[2017-05-19] MEDS ORDERED: Ondansetron HCl/PF 4 MG/2 ML Vial IVP PRN (15:54)
[2017-05-19] MEDS ORDERED: Dextrose 50% Abboject 50 ML SYRINGE SLOW IVP SCH (16:00)
--- NOTE | 2017-05-19 17:11 | OP ---
DATE OF OPERATION: 05/19/2017 OPERATION: Irrigation and debridement of left lower leg abscess. PREOPERATIVE DIAGNOSIS: Left lower leg abscess. POSTOPERATIVE DIAGNOSIS: Left lower leg abscess versus superinfection of hematoma. COMPLICATIONS: None. SURGEON: Orlando Pretty M.D. ANESTHESIA: Local plus sedation. INDICATIONS: Ms. Springer is a 62-year-old female who has been admitted to the hospital for 2 weeks with severe cellulitis of the left lower extremity. She has improved significantly; however, there is a focal area of swelling and fluctuance over the anterior tibia. MRI has shown a fluid collectio n. It is thought that this is an abscess. She has been indicated for irrigation and debridement of this site to hopefully eradicate infection and prevent further complications. Risks have been revi ewed. She has elected to proceed with the operation. DESCRIPTION OF PROCEDURE: Ms. Springer was identified in the preoperative holding area. Her correct extremity was marked. She was carried to the operating room. She was positioned supine. General anesthesia was induced. A multidisciplinary timeout was performed. The left leg was prepped and dr aped in sterile fashion. We began the procedure by performing a 3-cm incision over the anterior medial tibia. We dissected d own through the subcutaneous tissues. We encountered some cloudy appearing fluid as well as hematom a material. This was evacuated. We thoroughly irrigated with copious lavage. We used a curet to d ebride the cavity. We worked distally and proximally. Once we had a clean bed of tissue, we obtain ed hemostasis with our cautery device. Next, iodoform gauze packing was used to fill the cavity. We then loosely closed with 3-0 nylon sut ure. A sterile dressing was applied. The patient was taken to the recovery room in good condition without complication.
[2017-05-19] MEDS: Acetaminophen 325 MG TAB PO PRN (20:15)
[2017-05-20] MEDS: Clindamycin 150 MG CAP PO SCH ×4 (00:28→17:08)
[2017-05-20] MEDS: Ibuprofen 800 MG TAB PO PRN (00:29)
[2017-05-20] MEDS: Levothyroxine Sodium 125 MCG TAB PO SCH (05:47)
[2017-05-20] MEDS: Stress 600 With Zinc 1 TAB PO SCH (07:28)
[2017-05-20] MEDS: Apixaban 5 MG TAB PO SCH ×2 (07:29→20:12)
[2017-05-20] MEDS: Folic Acid 1 MG TAB PO SCH (07:29)
[2017-05-20] MEDS: Citalopram 20 MG TAB PO SCH (07:29)
[2017-05-20] MEDS: Ferrous Sulfate 325 MG TAB PO SCH ×2 (07:35→17:08)
[2017-05-20] MEDS ORDERED: Furosemide 40 MG TAB PO SCH (08:00)
--- NOTE | 2017-05-20 09:26 | PDOC.FM ---
- Subjective Subjective: Patient was taken to OR yesterday for debridement of overlying hematoma vs abscess of cellulitis. This went well. Patient states pain is improed this morning in leg. Pain better in throat/ ear. Spoke with Dr. Miller of ENT and the pain she is having is expected. If it continues past 10 days, she can follow up with him in office. She is encouraged to participate in PT today. If it goes well, may be able to discharge later this afternoon. - Objective Vital Signs & Weight: Vital Signs (12 hours) Temp Pulse Resp BP BP Pulse Ox 05/20/17 08:05 98.1 F 65 16 102/67 97 05/20/17 08:00 98.1 F 65 16 05/20/17 05:25 94 L 05/20/17 04:00 97.4 F L 66 18 105/60 96 05/20/17 01:05 98.5 F 89 20 94/55 L 93 L Weight Admit Weight 158.757 kg Weight 152.577 kg Most Recent Monitor Data Heart Rate from ECG 57 NIBP 133/50 NIBP BP-Mean 78 Respiration from ECG 18 SpO2 100 I&O: 05/19/17 05/20/17 05/21/17 06:59 06:59 06:59 Intake Total 1410 310 Balance 1410 310 Result Diagrams: 05/19/17 09:34 05/19/17 09:34 <Mary Fernandez - Last Filed: 05/20/17 09:24> - Objective Vital Signs & Weight: Vital Signs (12 hours) Temp Pulse Resp BP BP Pulse Ox 05/20/17 08:05 98.1 F 65 16 102/67 97 05/20/17 08:00 98.1 F 65 16 05/20/17 05:25 94 L 05/20/17 04:00 97.4 F L 66 18 105/60 96 05/20/17 01:05 98.5 F 89 20 94/55 L 93 L Weight Admit Weight 158.757 kg Weight 152.577 kg Most Recent Monitor Data Heart Rate from ECG 57 NIBP 133/50 NIBP BP-Mean 78 Respiration from ECG 18 SpO2 100 I&O: 05/19/17 05/20/17 05/21/17 06:59 06:59 06:59 Intake Total 1410 310 Balance 1410 310 Result Diagrams: 05/19/17 09:34 05/19/17 09:34 <GillDarius Flor Oswald - Last Filed: 05/20/17 11:20> Phys Exam - Physical Examination Constitutional: NAD Respiratory: no wheezing, no rales, no rhonchi, clear to auscultation bilateral Cardiovascular: RRR, no significant murmur Gastrointestinal: soft, non-tender LLE wrapped, minimal erythema noted, less tender along calf trace edema bialterally <Mary Fernandez - Last Filed: 05/20/17 09:24> Dx/Plan (1) Cellulitis of leg Code(s): L03.119 - CELLULITIS OF UNSPECIFIED PART OF LIMB Status: Acute Plan: improving s/p I&D of hematoma vs abscess of LLE. Cont abx x 7 days. Likely may be transferred out later today. (2) Odynophagia Code(s): R13.10 - DYSPHAGIA, UNSPECIFIED Status: Acute Plan: Likely post op pain. Follow up outpatient if persistent. No evidence for infection in oropharynx or ear. (3) Acute blood loss anemia Code(s): D62 - ACUTE POSTHEMORRHAGIC ANEMIA Status: Chronic Plan: cont iron , recheck outpatient. (4) History of tobacco abuse Code(s): Z87.891 - PERSONAL HISTORY OF NICOTINE DEPENDENCE Status: Acute (5) COPD (chronic obstructive pulmonary disease) Status: Chronic (6) Hypoventilation associated with obesity Code(s): E66.2 - MORBID (SEVERE) OBESITY WITH ALVEOLAR HYPOVENTILATION Status : Chronic Plan: Encouraged to follow up for outpatient sleep study. Follow up with PCP for orders (7) Paroxysmal a-fib Code(s): I48.0 - PAROXYSMAL ATRIAL FIBRILLATION Status: Chronic Plan: Cont eliquis and follow up with cardiology outpatient. (8) Pulmonary hypertension Code(s): I27.2 - OTHER SECONDARY PULMONARY HYPERTENSION * DO NOT USE * Status : Chronic Plan: patient requires chronic O2 at home at 2 liters. (9) Diastolic CHF Code(s): I50.30 - UNSPECIFIED DIASTOLIC (CONGESTIVE) HEART FAILURE Status: Chronic Qualifiers: Congestive heart failure chronicity: chronic Qualified Code(s): I50.32 - Chronic diastolic (congestive) heart failure Plan: well controlled, hold lasix <Mary Fernandez - Last Filed: 05/20/17 09:24> Attending Addendum - Attending Addendum I personally evaluated the patient and discussed the management with Dr. Fernandez. I agree with the History, Examination, Assessment and Plan documented above with any addition or exceptions noted below. Patient reports pain improved today. She went for I&D yesterday of what appears to be a likely infected hematoma under her area of cellulitis. She continues on abx. Ortho had no further recommendations. Pain improved in the L leg but continues, possibly related to irritation from the recent infection. MRI showed no other major concerns for serious cause of her pain complaint. She is awaiting approval for Rehab or SNF. Her bicarb level was above detection yesterday, likely 2/2 her known chronic CO2 retention. However, will recheck that value today and ensure her mental status has no acute changes to suggest worsening retention. Patient needs sleep study outpatient. <Darius Gill - Last Filed: 05/20/17 11:20>
[2017-05-20 11:20] LABS: Anion Gap 9 mmol/L (10-20); BUN (Urea Nitrogen) 14 mg/dL (9.8-20.1); Calc. Creatinine Clearance 187 mL/min (70-130); Calcium 7.9 mg/dL (7.8-10.44); Carbon Dioxide 36 mmol/L (22-29); Chloride 97 mmol/L (98-107); Estimated GFR-MDRD 76
[2017-05-20] MEDS: Acetaminophen 325 MG TAB PO PRN (14:04)
[2017-05-20 16:38] VITALS: BP 109/67; TEMP 98.7
--- NOTE | 2017-05-21 13:07 | DIS-2 ---
DATE OF ADMISSION: 05/07/2017 DATE OF DISCHARGE: 05/20/2017 ADMITTING ATTENDING: Dr. Greg Ware DISCHARGE ATTENDING: Dr. Darius Gill CONSULTANTS: 1. Dr. Quiñones of Pulmonology. 2. Dr. Joselo Miller of ENT. 3. Dr. Kit Woods of General Surgery. 4. Dr. Dmitry Pretty of Orthopedics. DISCHARGE DIAGNOSES: 1. Left lower extremity cellulitis with superimposed abscess versus superinfection of hematoma. 2. Tenosynovitis changes. 3. Obstructive sleep apnea. 4. Paroxysmal atrial fibrillation. 5. History of tobacco abuse. 6. Chronic obstructive pulmonary disease. 7. Chronic venous stasis. 8. Morbid obesity. 9. Essential hypertension. 10. Depression. 11. Hypothyroidism. 12. Diastolic congestive heart failure. 13. Pulmonary hypertension. 14. Hypoventilation associated with obesity. ROCEDURES: 1. An emergent exam under anesthesia with controlled oropharyngeal bleeding was performed on [address] Joselo Miller. At that time, patient had multiple lacerations involving the right gloss opharyngeal fold on the right side as well as multiple lacerations down the right lateral pharyngeal wall. These were cauterized and Monsel's solution was used and hemostasis was obtained. 2. An irrigation and debridement of the left lower leg abscess was performed on 05/19/[address] Surya Pretty. IMAGIN. On 05/07/2017 a left foot x-ray was performed that showed very severe deformity of the hind foot and midfoot. There was evidence for a Charcot joint. No acute fracture. There was bone demineral ization and degenerative changes and soft tissue swelling of the foot and leg and ankle. 2. A tibia, fibula x-ray was performed on 05/07/2017 that showed no fracture. There was degenerati ve change involving the left knee and left ankle. 3. Left lower extremity venous Doppler was performed on 05/07/2017 that showed no sonographic evide nce of DVT of the left lower extremity. 4. On 05/10/2017 a chest x-ray was performed that showed slightly low lying endotracheal tube and p ulmonary vascular prominence versus mild perihilar infiltrate. 5. A soft tissue neck CT was performed on 05/10/2017 that showed findings suspicious for possible r ight-sided buccal laceration. There was also a left thyroid nodule measuring 1.3 cm. 6. A soft tissue ultrasound of the left lower extremity was performed on 05/14/2017 that showed an echoic collection with internal echogenic material that appears to be septations in the subcutaneous soft tissues anteromedial aspect of the left lower ankle. There was subcutaneous edema at the leve l of the calf as well. 7. A left lower extremity MRI was performed on 05/18/2017 which showed a complex fluid collection i n the subcutaneous tissue along the anteromedial cortex of the distal tibia without underlying osteo myelitis. This could represent a hematoma. There was also tenosynovitis changes of the common jefry nina tendon sheath and flexor hallucis longus tendon. Of note, on 05/10/2017 a Code Blue was called on this patient after being found by nursing staff to be unarousable with an oxygen saturation of 53%. The patient maintained a pulse through the entire Code Blue. An endotracheal tube was placed by Anesthesia and she was successfully transferred to [facility] ICU. After some time, there was an air noted. There was an attempt made to reintubate the patien t over an EP replacement stylette; however, would not pass through the vocal cords. At that time An esthesia attempted reintubation which was successful. The patient remained in the ICU until appropr iate to move to the floor. DISCHARGE MEDICATIONS: 1. B complex with vitamin C 1 tab p.o. daily. 2. Eliquis 5 mg p.o. b.i.d. 3. Aspirin 81 mg p.o. daily. 4. Protonix 40 mg p.o. daily. 5. Folic acid 1 mg p.o. daily. 6. Ibuprofen 600 mg p.o. b.i.d. 7. Zocor 20 mg p.o. daily. 8. Celexa 20 mg p.o. daily. 9. Clindamycin 300 mg p.o. q.6 hours. 10. Ferrous sulfate 325 mg p.o. b.i.d. 11. Synthroid 125 mcg p.o. once daily. DISCONTINUED MEDICATIONS: At home were potassium chloride 20 mEq p.o. daily and Synthroid 112 mcg q .a.m. HISTORY OF PRESENT ILLNESS/HOSPITAL COURSE: This is a 62-year-old female who originally presented t o the ER with complaints of left lower extremity redness and swelling for approximately 4 days. Thi s seemed to have initiated after closing her left leg in a car door. She was treated for a left low er extremity cellulitis which was improving. As the patient was near ready for discharge on oral an tibiotics, a Code Blue was called in the middle of the night after the patient was found unarousable with an oxygen saturation in the 50s. The patient was intubated at that time, but had a traumatic intubation and subsequently had some lacerations as mentioned above. Hemostasis was obtained after ENT procedures as noted above. The patient's Eliquis was held throughout this bleeding situation. After hemostasis was secured and a couple days later, the patient's Eliquis was restarted and she co ntinued to have no further bleeding episodes. The patient did have some pain throughout the remaind er of her hospitalization in the oropharynx region; however ENT felt that this was normal postoperat randall pain and if it continues past approximately 10 days she is to follow up with ENT in the outpatie nt setting. In regards to patient's unarousable state, it was thought to possibly be secondary to some use of pa in medications secondary to left lower extremity pain versus severe obstructive sleep apnea for whic h patient is not treated or fluid overload. For the patient's fluid overload during this hospitalization some additional Lasix was given and she responded very nicely to this. The patient noted that she did not routinely take her Lasix at home because it made her urinate frequently. For this reason Lasix and potassium was held at this time until she follows up with her primary care physician and she did quite well without it. In regards to patient's left lower extremity cellulitis, after cellulitis appeared to be resolving a nd diuresis with adequate, there was evidence for possible abscess. This was reviewed by General Bourgeois rgery who did not think it was a drainable abscess. However, due to continued severe pain Orthopedi cs was consulted due to concern for tendon involvement. The patient was taken for incision and drai nage of an abscess which may be causing some irritation of the tendon and left lower extremity. No purulent material was obtained from the abscess; however, there did appear to be a possible hematoma which was drained. The patient was to be continued on 7 days of antibiotics. The patient had very limited activity with physical therapy due to the left lower extremity pain. She was accepted to a rehab facility in order to continue working with physical therapy and get back to her regular state of activity, which is at least being able to stand. The patient has limited activity past that at home, as she reports. In regards to the patient's sleep apnea she was encouraged multiple times to follow up in the outpat ient setting for her sleep study test for which she had not completed. She is not currently on tiki tment with a CPAP machine, although she has been on one in the past. In regards to patient's atrial fibrillation, she remained in a normal sinus rhythm and at times was bradycardic with the rate controlled. The patient was to be continued on the Eliquis long-term. In regards to patient's hypothyroidism, she was noted to have an elevated TSH. Her Synthroid dose w as increased. Her T4 was within normal limits. However, on CT of the neck, she was noted to have a 1.3 cm nodule and this will need to be followed up in the outpatient setting by her PCP. DISPOSITION: Stable. DISCHARGE INSTRUCTIONS: 1. Activity as tolerated. 2. Location: To [facility]. 3. Diet: Heart healthy. 4. Follow up with ENT if the patient's ear and throat pain does not resolve. Follow up with her PC P after discharge from rehab. Follow up for a sleep study as soon as possible.
== END 2017-05-20 20:44 | DRG 579 ==
LOC: ERS 07:36 → T4-A 09:51 → CCU 05-10 01:34 → T4-A 05-13 17:14
PROVIDERS: ADMIT Family Medicine; ATTEND Family Medicine
PROC: 0W33XZZ Control Bleeding in Oral Cavity and Throat, External Approach (ICD-10-PCS; 2017-05-10)
PROC: 0CJS8ZZ Inspection of Larynx, Via Natural or Artificial Opening Endoscopic (ICD-10-PCS; 2017-05-10)
PROC: 30233N1 Transfusion of Nonautologous Red Blood Cells into Peripheral Vein, Percutaneous Approach (ICD-10-PCS; 2017-05-10)
PROC: 30233K1 Transfusion of Nonautologous Frozen Plasma into Peripheral Vein, Percutaneous Approach (ICD-10-PCS; 2017-05-10)
PROC: 5A1945Z Respiratory Ventilation, 24-96 Consecutive Hours (ICD-10-PCS; 2017-05-10)
PROC: 0BH17EZ Insertion of Endotracheal Airway into Trachea, Via Natural or Artificial Opening (ICD-10-PCS; 2017-05-10)
PROC: 0JDP0ZZ Extraction of Left Lower Leg Subcutaneous Tissue and Fascia, Open Approach (ICD-10-PCS; principal; 2017-05-19)
PROC: 3E0T3BZ Introduction of Anesthetic Agent into Peripheral Nerves and Plexi, Percutaneous Approach (ICD-10-PCS; 2017-05-19)
DX: L03.116 Cellulitis of left lower limb (principal); J96.21 Acute and chronic respiratory failure with hypoxia; N17.9 Acute kidney failure, unspecified; I27.20 Pulmonary hypertension, unspecified; I11.0 Hypertensive heart disease with heart failure; I50.32 Chronic diastolic (congestive) heart failure; D62 Acute posthemorrhagic anemia; E87.1 Hypo-osmolality and hyponatremia; J96.22 Acute and chronic respiratory failure with hypercapnia; E66.2 Morbid (severe) obesity with alveolar hypoventilation; Z68.43 Body mass index [BMI] 50.0-59.9, adult; J95.71 Accidental puncture and laceration of a respiratory system organ or structure during a respiratory system procedure; R13.10 Dysphagia, unspecified; D53.9 Nutritional anemia, unspecified; E11.9 Type 2 diabetes mellitus without complications; K74.60 Unspecified cirrhosis of liver; I48.0 Paroxysmal atrial fibrillation; J44.9 Chronic obstructive pulmonary disease, unspecified; E03.9 Hypothyroidism, unspecified; K21.9 Gastro-esophageal reflux disease without esophagitis; Z87.891 Personal history of nicotine dependence; Z79.01 Long term (current) use of anticoagulants; G47.33 Obstructive sleep apnea (adult) (pediatric); Z23 Encounter for immunization; F32.9 Major depressive disorder, single episode, unspecified; I87.2 Venous insufficiency (chronic) (peripheral); E87.6 Hypokalemia; Y65.8 Other specified misadventures during surgical and medical care
CPT/HCPCS: 36415; 36416; 36430; 70470; 70491; 71010; 74000; 76999; 80048; 80053; 82553; 82565; 82805; 83036; 83605; 83735; 84439; 84443; 84481; 84484; 85014; 85018; 85025; 85049; 85610; 85730; 86850; 86900; 86901; 87040; 87070; 87205; 90471; 90682; 92950; 93005; 93010; 94002; 94003; 96365; 96375; A4216; C9132; G0008; G8978-GP-CM; G8979-GP-CK; G8979-GP-CL; G8987-GO-CM; G8988-GO-CK; J0171; J1100; J1885; J1940; J2250; J2270; J2405; J2704; J3010; J3370; J3475; J3490; J7050; P9016; P9059; Q2036; S0020

== ENCOUNTER 2017-06-15 14:08 | Emergency (ER) | payer OTHER ==
[2017-06-15] MEDS ORDERED: Morphine 4 MG/ML VIAL ONE (14:50)
[2017-06-15] MEDS ORDERED: Lorazepam 2 MG/ML VIAL ONE (14:50)
[2017-06-15] MEDS ORDERED: Ketorolac Tromethamine 60 MG/2 ML VIAL ONE (14:50)
[2017-06-15 15:22] LABS: #Basophils 0.1 thou/uL (0.0-0.2); #Eosinphils 0.3 thou/uL (0.0-0.7); #Lymphocytes 1.9 thou/uL (1.20-3.40); #Monocytes 0.8 thou/uL (0.11-0.59); #Neutrophils 2.4 thou/uL (1.40-6.50); %Basophils 1.2 % (0.0-1.0); %Lymphocytes 35.8 % (21.0-51.0); %Monocytes 14.3 % (0.0-10.0); Hematocrit 28.3 % (36.0-47.0); Mean Platelet Volume 7.9 fL (7.4-10.4); Red Blood Cell (RBC) Count 2.62 mill/uL (4.20-5.40); White Blood Cell (WBC) Count 5.4 thou/uL (4.8-10.8)
[2017-06-15 15:37] LABS: Anion Gap 12 mmol/L (10-20); BUN (Urea Nitrogen) 9 mg/dL (9.8-20.1); Calc. Creatinine Clearance 0 mL/min (70-130); Calcium 7.9 mg/dL (7.8-10.44); Carbon Dioxide 28 mmol/L (22-29); Chloride 104 mmol/L (98-107); Estimated GFR-MDRD 81
--- NOTE | 2017-06-15 15:49 | RAD ---
THREE VIEWS OF THE LEFT ANKLE: Date: 06-15-17 Comparison: 08-10-15 History: Trauma, pain. FINDINGS: There is stable corticated irregularity involving the contour of the distal left fibula laterally. T his is unchanged when compared to the 2016 exam. There is degenerative change involving the left ank le joint with joint space narrowing and osteophyte formation. The bones appear demineralized. There appears to be a chronic comminuted calcaneal fracture with loss of Bohler angle and prominent subtalor joint degenerative change, better assessed on prior imaging. IMPRESSION: Chronic appearing findings as described above. No convincing evidence for acute fracture or dislocat ion is evident. POS: [facility]
--- NOTE | 2017-06-15 15:53 | RAD ---
LEFT FEMUR TWO VIEWS: Date: 06-15-17 History: Trauma, pain. FINDINGS: There is severe degenerative change involving the left knee with severe medial and moderate lateral compartment narrowing with associated subchondral sclerosis and osteophyte formation. There is no displaced fracture or evidence of dislocation. Osseous detail at the level of the femora l neck and femoral head on the left is limited on the basis of body habitus. IMPRESSION: No displaced fracture or dislocation. POS: [facility]
--- NOTE | 2017-06-15 15:54 | RAD ---
FRONTAL AND LATERAL IMAGING OF THE LEFT TIBIA AND FIBULA: Date: 06-15-17 Comparison: 05-07-17 History: Trauma, pain. FINDINGS: There is prominent degenerative change at the level of the ankle joint and the knee joint on the lef t, similar when compared to prior. No fracture or evidence of dislocation seen. IMPRESSION: Chronic findings as detailed above. No acute findings noted. POS: [facility]
== END 2017-06-15 18:00 | disposition home or self-care (01) ==
LOC: ERS 14:08
DX: M79.605 Pain in left leg (principal); E66.01 Morbid (severe) obesity due to excess calories; E78.5 Hyperlipidemia, unspecified; E11.9 Type 2 diabetes mellitus without complications; E03.9 Hypothyroidism, unspecified; J44.9 Chronic obstructive pulmonary disease, unspecified; F32.9 Major depressive disorder, single episode, unspecified; Z87.891 Personal history of nicotine dependence; Z79.82 Long term (current) use of aspirin; Z79.899 Other long term (current) drug therapy
CPT/HCPCS: 36415; 80048; 82010; 85025; 96372; J1885; J2060; J2270

== ENCOUNTER 2017-06-19 14:32 | Inpatient (IN) | payer OTHER ==
[2017-06-19] MEDS ORDERED: Meropenem 1 GM in Sodium Chloride 0.9% 100 ML IVPB SCH (16:00)
[2017-06-19 16:25] LABS: Hematocrit 30.4 % (36.0-47.0); Red Blood Cell (RBC) Count 2.82 mill/uL (4.20-5.40); White Blood Cell (WBC) Count 4.4 thou/uL (4.8-10.8)
[2017-06-19 16:30] LABS: PTT 33.5 SEC (22.9-36.1); Prothrombin Time 21.4 SEC (12.0-14.7)
[2017-06-19 16:37] LABS: Lactic Acid - Sepsis 2.1 mmol/L (0.5-2.2)
[2017-06-19 16:44] LABS: ALT (SGPT) 21 U/L (8-55); AST (SGOT) 47 U/L (5-34); Alkaline Phosphatase 131 U/L (40-150); Anion Gap 10 mmol/L (10-20); BUN (Urea Nitrogen) 11 mg/dL (9.8-20.1); Bilirubin, Total 1.1 mg/dL (0.2-1.2); CK (CPK) 134 U/L (29-168); Calc. Creatinine Clearance 0 mL/min (70-130); Calcium 8.1 mg/dL (7.8-10.44); Carbon Dioxide 31 mmol/L (22-29); Chloride 102 mmol/L (98-107); Estimated GFR-MDRD 67; Protein, Total 7.3 g/dL (6.0-8.3)
[2017-06-19 16:47] LABS: Troponin I 0.012 ng/mL (< 0.028)
--- NOTE | 2017-06-19 16:57 | RAD ---
CHEST ONE VIEW 06/19/17 HISTORY: Headache. Cough. COMPARISON: Chest one view 05/11/17. FINDINGS: The heart size is markedly enlarged. There is mild pulmonary venous congestion. There are numerous op acities within the left upper and lower lobes. IMPRESSION: 1. Cardiomegaly with mild edema. 2. Air space opacities left upper lobe and left lower lobe concerning for pneumonia. POS: [facility]
[2017-06-19 16:58] LABS: Bilirubin Negative (Negative); Blood, Urine Negative (Negative); Glucose, Urine (Dipstick) Negative (Negative); Ketone, Urine Negative (Negative); Nitrite Negative (Negative); Protein, Urine (Dipstick) Negative (Neg-Trace); Urobilinogen 0.2 mg/dL (0.2-1.0)
[2017-06-19 16:59] LABS: #Eosinphils 0.2 thou/uL (0.0-0.7); #Lymphocytes 1.8 thou/uL (1.20-3.40); #Monocytes 0.5 thou/uL (0.11-0.59); #Neutrophils 1.9 thou/uL (1.40-6.50); %Basophils 1.1 % (0.0-1.0); %Eosinophils 5.6 % (0.0-10.0); %Lymphocytes 39.6 % (21.0-51.0); %Monocytes 10.9 % (0.0-10.0)
--- NOTE | 2017-06-19 17:06 | CT ---
CT BRAIN WITHOUT CONTRAST 06/19/17 HISTORY: Headache. COMPARISON: CT brain 02/02/17. FINDINGS: No acute territorial infarct or hemorrhage. No midline shift or mass effect. The paranasal sinuses an d mastoids are clear. Calvarium is intact. Orbits are unremarkable. IMPRESSION: No acute intracranial abnormality. No significant change. POS: [facility]
--- NOTE | 2017-06-19 18:54 | PDOC.EVN ---
Attending Addendum - Attending Addendum I personally evaluated the patient and discussed the management with Dr. Branch. I agree with the History, Examination, Assessment and Plan documented in his H& P with any addition or exceptions noted below. Patient is well known to our service and had recent hospitalization for L leg cellulitis with discharge on 05/20/17. She has now been admitted for 1 week history of chills, productive cough of green sputum, and increased shortness of breath. She also continues to complain of L leg pain that she has had for months. She denies fevers. Her exam is difficult due to body habitus from respiratory standpoint, but her lower extremity exam is more consistent with bilateral chronic venous stasis changes. She has no increased redness or warmth in the L leg, and no increased drainage. Her labs appear overal normal and at baseline. Her CXR does show evidence of EVAN and LLL infiltrate concerning for pneumonia. With productive cough and these findings, we will admit for pneumonia , concern for hospital acquired as she has hospitalization less than 1 month. Will provide abx, respiratory support with nebs. Will need to monitor for CO2 retention as this patient has a history of such. I do note that her bicarb on BMP is improved from last time so hopefully she is not retaining as much as previously. I do not have high suspicion for cellulitis in this patient at this time. Cultures obtained, will also obtain urine antigen for legionella and strep pneumo.
[2017-06-19 19:46] VITALS: BMI 62.4
[2017-06-19] MEDS ORDERED: Dextrose 5% in Water 1,000 ML IV PRN (21:04)
[2017-06-19] MEDS ORDERED: Dextrose 50% Abboject 50 ML SYRINGE SLOW IVP PRN (21:04)
[2017-06-19] MEDS ORDERED: HumaLOG 300 UNITS/3 ML VIAL SC PRN (21:04)
[2017-06-20] MEDS: Acetaminophen 325 MG TAB PO PRN (01:02)
[2017-06-20 04:48] LABS: Anion Gap 6 mmol/L (10-20); BUN (Urea Nitrogen) 10 mg/dL (9.8-20.1); Calc. Creatinine Clearance 201 mL/min (70-130); Calcium 7.8 mg/dL (7.8-10.44); Carbon Dioxide 33 mmol/L (22-29); Chloride 104 mmol/L (98-107); Estimated GFR-MDRD 79
[2017-06-20 05:15] LABS: #Eosinphils 0.3 thou/uL (0.0-0.7); #Monocytes 0.6 thou/uL (0.11-0.59); #Neutrophils 1.7 thou/uL (1.40-6.50); %Basophils 0.8 % (0.0-1.0); %Eosinophils 6.9 % (0.0-10.0); %Lymphocytes 42.4 % (21.0-51.0); %Monocytes 12.5 % (0.0-10.0); Hematocrit 24.6 % (36.0-47.0); Mean Platelet Volume 8.2 fL (7.4-10.4); White Blood Cell (WBC) Count 4.6 thou/uL (4.8-10.8)
[2017-06-20] MEDS: Vancomycin HCl 1 GM in Premix Bag 1 BAG IVPB SCH ×2 (05:17→17:50)
[2017-06-20] MEDS: Levothyroxine Sodium 125 MCG TAB PO SCH (05:17)
--- NOTE | 2017-06-20 07:04 | PDOC.FM ---
- Subjective Subjective: Pt resting in the room. Denies any acute events overnight. Denies any fever chills. Still having cough. Denies any other problem at this time. - Objective Vital Signs & Weight: Vital Signs (12 hours) Temp Pulse Resp BP Pulse Ox 06/20/17 04:00 97.7 F 60 22 H 112/58 L 98 06/20/17 00:00 98.2 F 63 24 H 126/73 99 06/19/17 21:00 98.5 F 58 L 22 H 99 06/19/17 19:23 98.5 F 58 L 22 H 146/69 H 99 Weight Weight 160 kg I&O: 06/19/17 06/20/17 06/21/17 06:59 06:59 06:59 Intake Total 750 Balance 750 Result Diagrams: 06/20/17 03:44 06/20/17 03:44 Radiology: CXR: Air space opacities EVAN and LLL concerning for pneumonia <Óscar Donato - Last Filed: 06/20/17 07:46> - Objective Vital Signs & Weight: Vital Signs (12 hours) Temp Pulse Resp BP Pulse Ox 06/20/17 08:00 98.2 F 58 L 24 H 06/20/17 07:50 98.2 F 58 L 24 H 118/55 L 96 06/20/17 04:00 97.7 F 60 22 H 112/58 L 98 06/20/17 00:00 98.2 F 63 24 H 126/73 99 Weight Weight 160 kg I&O: 06/19/17 06/20/17 06/21/17 06:59 06:59 06:59 Intake Total 750 Balance 750 Result Diagrams: 06/20/17 03:44 06/20/17 03:44 <Darius Gill - Last Filed: 06/20/17 10:40> Phys Exam - Physical Examination Constitutional: NAD HEENT: moist MMs, oral pharynx no lesions Neck: no nodes, no JVD, supple, full ROM Respiratory: no wheezing, no rales, no rhonchi Breath sounds hard to auscultate due to body habitus Cardiovascular: RRR, no significant murmur, no rub Gastrointestinal: soft, non-tender, no distention, positive bowel sounds Chronic Venostasis noted in both LE. No erythema L leg dressed at this time. No drainage noted. Neurological: non-focal, normal sensation Skin: no rash, normal turgor <Óscar Donato - Last Filed: 06/20/17 07:46> Dx/Plan (1) Pneumonia Code(s): J18.9 - PNEUMONIA, UNSPECIFIED ORGANISM Status: Acute (2) Panniculitis Code(s): M79.3 - PANNICULITIS, UNSPECIFIED Status: Acute (3) GERD (gastroesophageal reflux disease) Code(s): K21.9 - GASTRO-ESOPHAGEAL REFLUX DISEASE WITHOUT ESOPHAGITIS Status: Acute (4) COPD (chronic obstructive pulmonary disease) Status: Acute (5) KATE (obstructive sleep apnea) Code(s): G47.33 - OBSTRUCTIVE SLEEP APNEA (ADULT) (PEDIATRIC) Status: Acute (6) Hypothyroid Code(s): E03.9 - HYPOTHYROIDISM, UNSPECIFIED Status: Chronic (7) Paroxysmal a-fib Code(s): I48.0 - PAROXYSMAL ATRIAL FIBRILLATION Status: Chronic (8) Venous stasis Code(s): I87.8 - OTHER SPECIFIED DISORDERS OF VEINS Status: Chronic - Plan Plan: Hospital Acquired Pneumonia -She was recently discharge from hospital less than a month ago -Currently on Vanc, Cefepime, and levaquin -WBC low this morning. No fevers overnight. -Pt reports doing better. Requiring 2 L O2 at this time Blood Cx-NGTD Urine Cx- NGTD Chronic Venostasis -Possible cellulits -No erythema or warmth noted. L. Leg dressed and no drainage noted. -Will continue to monitor -On abx, will cover cellullits infection if there is one Panniculitis -Lotrimin cream Paroxysmal A. fib -RRR at this time. -HR normal -Will continue to monitor Hypothyroidism -continue home meds GERD -continue home meds Chronic Macrocytic Anemia -B12 and folate normal at past visit -Will continue to monitor -Possibly due to poor oxygenation KATE -On O2 at this time -May try a CPAP overnight. <Óscar Donato - Last Filed: 06/20/17 07:46> Attending Addendum - Attending Addendum I personally evaluated the patient and discussed the management with Dr. Donato. I agree with the History, Examination, Assessment and Plan documented above with any addition or exceptions noted below. Patient has no new complaints this morning, but continues to report shortness of breath that is better with oxygen and leg pain. She continues on abx for possible HAP due to productive cough, increasing O2 requirement. Will check pneumonia urine antigens. Her Hgb also dropped somewhat, though she is chronically low. She has no reason for this, and therefore will check FOBT to ensure no GI bleeding ongoing. May need transfusion if it continues to drop. Will repeat CXR in AM. <Darius Gill - Last Filed: 06/20/17 10:40>
[2017-06-20] MEDS: Apixaban 5 MG TAB PO SCH ×2 (08:01→20:22)
[2017-06-20] MEDS: Folic Acid 1 MG TAB PO SCH (08:01)
[2017-06-20] MEDS: Ferrous Sulfate 325 MG TAB PO SCH ×2 (08:01→17:24)
[2017-06-20] MEDS: Citalopram 20 MG TAB PO SCH (08:45)
--- NOTE | 2017-06-20 08:48 | HP-2 ---
CODE STATUS: FULL. PRIMARY CARE PHYSICIAN: [facility]. ATTENDING: Darius Glil MD PGY1: Juan Branch MD HISTORIAN: She is [place]er speaking, so she will need an foreign language interpreter. CHIEF COMPLAINT: Cough. HISTORY OF PRESENT ILLNESS: This is a 62-year-old female that presents with a 1-day history of incre ased shortness of breath, cough, and productive sputum. The patient has also had chronic lower extre mity redness, edema, and pain. She also reports a headache with weakness. She states that she has n ot had fevers or chills. She denies any chest pain. She does admit to nausea, vomiting, and some ab dominal pain that is more superficial. She has no other complaints at this time. In the ER, she was given vancomycin and meropenem. PAST MEDICAL HISTORY: Significant for COPD, obstructive sleep apnea, paroxysmal atrial fibrillation, diabetes mellitus type 2, chronic venous stasis changes, morbid obesity, hypertension, depression, p eripheral edema, hypothyroidism, and tobacco abuse. PAST SURGICAL HISTORY: Significant for cholecystectomy, , tonsillectomy, and an I&D of a le g abscess. ALLERGIES: PENICILLINS. MEDICATIONS: As followed: 1. B complex with vitamin C. 2. Eliquis 5 mg b.i.d. 3. Aspirin 81 mg. 4. Protonix 40 mg. 5. Folic acid 1 mg. 6. Ibuprofen 600 mg b.i.d. 7. Zocor 20 mg p.o. daily. 8. Celexa 20 mg. 9. Clindamycin 300 mg. 10. Ferrous sulfate 325 mg b.i.d. 11. Synthroid 125 mcg. FAMILY HISTORY: Noncontributory. SOCIAL HISTORY: Tobacco use. She has a history of tobacco abuse. Denies any alcohol or drug use. REVIEW OF SYSTEMS: Constitutional: She denies any fevers or chills. Denies any weight changes, night sweats, or fatigu e. Eyes: Denies any vision changes or eye pain. ENT: Denies any nasal congestion, rhinorrhea, or sore throat. Respiratory: She does admit to a cough with congestion and shortness of breath with sputum productio n. Cardiovascular: Denies any chest pain, palpitations, or edema. Gastrointestinal: She admits to nausea, diarrhea, and abdominal pain. She denies any vomiting or co nstipation. Genitourinary: Denies any incontinence, dysuria. Skin: She does admit to a rash, especially on her lower abdomen. Denies any lesions or jaundice. Musculoskeletal: Denies any pain, tenderness, stiffness, swelling, or arthritis. Neurologic: She denies any weakness, numbness, syncope, or seizures. Psychiatric: She denies any anxiety or depression. PHYSICAL EXAMINATION: VITAL SIGNS: Blood pressure was 150/75, pulse was 59, respirations 20, temperature max 97.9, pulse o x 100% on 2 liters. Current weight is 148 kilos. GENERAL: She is alert and oriented x4. She is obese and appropriately interactive. EYES: PERRLA. Conjunctivae are within normal limits. ENT: Nasal mucosa and oropharynx within normal limits. NECK: Supple, no lymphadenopathy, no thyromegaly, no bruit. CARDIOVASCULAR: Regular rate and rhythm. No murmur, no gallop. Radial and pedal pulses are equal b ilaterally. RESPIRATORY: Normal effort, no retractions or crackles to her left lung field. SKIN: Warm and dry. She did have chronic venous stasis changes to her bilateral lower extremities a s well as a site where there is an I&D on her left lower extremity. She also has some redness and wa rmth to her lower abdomen consistent with a panniculitis-type picture. ABDOMEN: Soft, nontender to palpation. Bowel sounds are present x4. No mass or distention. She is a very obese lady. EXTREMITIES: No clubbing, cyanosis, or edema. She does have edema present in left lower extremity, erythema, tenderness, and warmth. MUSCULOSKELETAL: Structure, tone, strength, and range of motion within normal limits. NEUROLOGIC: No focal neurologic deficits. Sensation is within normal limits. Cranial nerves II thr ough XII grossly intact. GCS of 15. She was appropriate. LABORATORY DATA: White blood cell count 4.4, platelet count 108, hemoglobin 9.2, hematocrit 30.4, MC V 108%, neutrophils 42.9. CK of 134, CK-MB of 3.1, troponin 0.012. Sodium 139, potassium 3.8, chlor norberto 102, bicarbonate 31, BUN 11, creatinine 0.86, glucose 100, calcium 8.1, total protein 7.3, albumi n 2.3, total bilirubin 1.1, AST 47, ALT 21, alkaline phosphatase 131. Lactate was 2.1. PTT was 32.5 , PT was 21.4, INR was 1.8. Urinalysis was unremarkable. Chest x-ray shows left upper and left lower lobe opacities and cardiomegaly. CT of her head was negative. ASSESSMENT AND PLAN: This 62-year-old female presents with: 1. Pneumonia likely hospital acquired from her recent hospitalization. We started vancomycin, Levaq uin, and cefepime. We are going to recheck her lab work. We got blood cultures, urine cultures pend ing. We will repeat her chest x-ray if it worsens. 2. Venous stasis dermatitis versus cellulitis. She is going to be covered by antibiotics. We will monitor for changes. We will get a Wound Care consult. 3. Paroxysmal atrial fibrillation. We will continue her home medications. 4. Hypothyroidism. Continue her home medications. 5. Panniculitis. We will give her a topical antifungal. 6. Gastroesophageal reflux disease. Continue her home medications. 7. Macrocytic anemia. Continue her home medications. 8. Chronic obstructive pulmonary disease. Continue her home medications. DISPOSITION/LENGTH OF HOSPITAL STAY: Will be inpatient and 2 midnights. Symptomatic medications will be provided. History and physical exam, as well as management, has been discussed with Dr. Gill.
[2017-06-20] MEDS ORDERED: Clotrimazole 1% Cream 15 GM TUBE TOP SCH (09:00)
[2017-06-20] MEDS: Cefepime 2 GM in Syringe 12.5 ML SLOW IVP SCH ×2 (11:01→20:23)
[2017-06-20] MEDS: Stress 600 With Zinc 1 TAB PO SCH (11:11)
[2017-06-20] MEDS: Clotrimazole 1 % Cream 30 GM TUBE TOP SCH (15:53)
[2017-06-20] MEDS ORDERED: Clotrimazole 1 % Cream 30 GM TUBE TOP SCH (16:00)
[2017-06-20] MEDS: Atorvastatin Calcium 10 MG TAB PO SCH (20:23)
[2017-06-21] MEDS: Levothyroxine Sodium 125 MCG TAB PO SCH (05:20)
[2017-06-21 05:29] LABS: Anion Gap 4 mmol/L (10-20); BUN (Urea Nitrogen) 10 mg/dL (9.8-20.1); Calc. Creatinine Clearance 194 mL/min (70-130); Calcium 7.8 mg/dL (7.8-10.44); Carbon Dioxide 36 mmol/L (22-29); Chloride 102 mmol/L (98-107); Estimated GFR-MDRD 75
[2017-06-21 05:31] LABS: Vancomycin, Trough 14.3 ug/mL
[2017-06-21] MEDS: Vancomycin HCl 1 GM in Premix Bag 1 BAG IVPB SCH ×2 (06:09→17:13)
[2017-06-21] MEDS: Clotrimazole 1 % Cream 30 GM TUBE TOP SCH (09:00)
[2017-06-21] MEDS: Citalopram 20 MG TAB PO SCH (09:19)
[2017-06-21] MEDS: Folic Acid 1 MG TAB PO SCH (09:19)
[2017-06-21] MEDS: Ferrous Sulfate 325 MG TAB PO SCH ×2 (09:19→17:13)
[2017-06-21] MEDS: Apixaban 5 MG TAB PO SCH ×2 (09:19→20:46)
[2017-06-21] MEDS: Cefepime 2 GM in Syringe 12.5 ML SLOW IVP SCH ×2 (09:19→20:46)
--- NOTE | 2017-06-21 09:34 | PDOC.FM ---
- Subjective Subjective: Patient is very drowsy this morning. Lying flat in bed without CPAP in place. She is somewhat difficult to arouse and drifts in and out of conversation. Patient reports feeling better than yesterday in the standpoint of her respiratory status. Endorses continued cough, but less SOB. Reports pain in b/ l legs. Admits to having melenous stools for quite some time. Has not had a BM here yet to confirm. - Objective MAR Reviewed: Yes Vital Signs & Weight: Vital Signs (12 hours) Temp Pulse Resp BP Pulse Ox 06/21/17 08:00 98.2 F 61 22 H 112/53 L 97 Weight Weight 160 kg I&O: 06/20/17 06/21/17 06/22/17 06:59 06:59 06:59 Intake Total 750 1000 900 Balance 750 1000 900 Result Diagrams: 06/21/17 04:53 06/21/17 04:53 <Francesca Hebert - Last Filed: 06/21/17 11:40> - Objective Vital Signs & Weight: Vital Signs (12 hours) Temp Pulse Resp BP Pulse Ox 06/21/17 09:09 95 06/21/17 08:00 98.2 F 61 22 H 112/53 L 97 Weight Admit Weight 160 kg Weight 160 kg I&O: 06/20/17 06/21/17 06/22/17 06:59 06:59 06:59 Intake Total 750 1000 900 Balance 750 1000 900 Result Diagrams: 06/21/17 04:53 06/21/17 04:53 <Maribel Siddiqui - Last Filed: 06/21/17 20:00> Phys Exam - Physical Examination drowsy, no increased work of breathing HEENT: moist MMs increased neck girth decreased breath sounds throughout with posterior auscultation anterior auscultation with rhonchi throughout Cardiovascular: RRR, no significant murmur although difficult to hear due to body habitus Gastrointestinal: soft, non-tender, positive bowel sounds b/l 1+ pitting edema to the knees Neurological: non-focal Deviation from normal: drowsy Deviation from normal: erythematous areas of bilateral legs, dressing in place on L leg <Francesca Hebert - Last Filed: 06/21/17 11:40> Dx/Plan (1) Macrocytic anemia Code(s): D53.9 - NUTRITIONAL ANEMIA, UNSPECIFIED Status: Acute (2) COPD (chronic obstructive pulmonary disease) Status: Acute (3) GERD (gastroesophageal reflux disease) Code(s): K21.9 - GASTRO-ESOPHAGEAL REFLUX DISEASE WITHOUT ESOPHAGITIS Status: Acute (4) KATE (obstructive sleep apnea) Code(s): G47.33 - OBSTRUCTIVE SLEEP APNEA (ADULT) (PEDIATRIC) Status: Acute (5) Panniculitis Code(s): M79.3 - PANNICULITIS, UNSPECIFIED Status: Acute (6) Pneumonia Code(s): J18.9 - PNEUMONIA, UNSPECIFIED ORGANISM Status: Acute (7) Altered mental status Code(s): R41.82 - ALTERED MENTAL STATUS, UNSPECIFIED Status: Acute - Plan Plan: Altered Mental Status -most likely 2/2 acute on chronic hypercapnic respiratory failure -ABG pending -spoke with RT to get CPAP in room -could need transfer to [facility] [place] for [facility] Acquired Pneumonia -She was recently discharge from hospital less than a month ago -Currently on Vanc, Cefepime, and levaquin, waiting on repeat CXR and if not worsened, consider deescalation to Bactrim and Levaquin PO -No fevers overnight. -Pt reports doing better. -Requiring 2 L O2 at this time, this is her home regimen -Blood Cx-NGTD -Urine Cx- NGTD Chronic Venostasis -Possible cellulitis -No warmth noted. L. Leg dressed and no drainage noted. -Will continue to monitor -On abx, will cover cellullits infection if there is one Panniculitis -Lotrimin cream Paroxysmal A. fib -RRR at this time. -HR normal -Continue Eliquis -Will continue to monitor Hypothyroidism -continue home meds GERD -continue home meds Chronic Macrocytic Anemia -B12 and folate normal at past visit -Peripheral smear ordered -likely multifactoral, but evaluate for hemolysis with peripheral smear -retic count elevated KATE -On O2 at this time -CPAP overnight. <Francesca Hebert - Last Filed: 06/21/17 11:40> Attending Addendum - Attending Addendum I personally evaluated the patient and discussed the management with Dr. Hebert. I agree with the History, Examination, Assessment and Plan documented above with any addition or exceptions noted below. The patient now requires bipap for hypercapnic respiratory failure. ABG results reviewed. She is somnolent. Discussed importance of pt having bipap when sleeping. Pt on broadspectrum IV antibiotics. will try lasix to help with lower extremity swelling. Pt's legs have erythema but this is stable from past hospitalizations and does not appear to have an acute infection. <Maribel Siddiqui - Last Filed: 06/21/17 20:00>
[2017-06-21 09:36] LABS: Oxyhemoglobin 92.9 % (94.0-97.0); Sodium 140 mmol/L (135-148)
[2017-06-21] MEDS: Stress 600 With Zinc 1 TAB PO SCH (09:46)
[2017-06-21] MEDS: Acetaminophen 325 MG TAB PO PRN (09:46)
[2017-06-21 09:57] LABS: Hematocrit 25.2 % (36.0-47.0); Mean Platelet Volume 7.7 fL (7.4-10.4); White Blood Cell (WBC) Count 4.5 thou/uL (4.8-10.8)
[2017-06-21 10:08] LABS: Anisocytosis SLIGHT = 6-15 cells (100X) (0-5/hpf); Band 7 % (5-11); Hypochromia SLIGHT = 6-15 cells (100X) (0-5/hpf); Neutrophil 44 % (42-75)
[2017-06-21 10:09] LABS: Mode 2LNC; Modified Allen's Test POSITIVE; Vent NO
[2017-06-21] MEDS ORDERED: Furosemide 40 MG/4 ML VIAL SLOW IVP SCH (12:00)
--- NOTE | 2017-06-21 12:19 | RAD ---
CHEST 1 VIEW: HISTORY: Pneumonia. COMPARISON: Chest 1 view 06/19/17. FINDINGS: Heart size is enlarged. Small effusions. Pulmonary vascular congestion. Worsening opacities in bot h upper lobes. IMPRESSION: 1. Worsening left upper and right upper lobe airspace opacity concerning for progressive infection. 2. Cardiomegaly with mild edema. POS: [facility]
[2017-06-21] MEDS: Atorvastatin Calcium 10 MG TAB PO SCH (20:46)
--- NOTE | 2017-06-21 21:57 | CON ---
DATE OF CONSULTATION: 06/21/2017 REQUESTING PHYSICIAN: Dr. Darius Gill. BRIEF HISTORY OF PRESENT ILLNESS: The patient is a 62-year-old female who is admitted to the [facility] with a 1-day history of shortness of breath, productive cough. The patient also was found to have a chronic lower extremity open wound. We were initially consulted on Ms. Springer on 05/19/[address] Pretty saw the patient. She was at that time found to have a 2-week history of cellu litis of the left lower extremity and was found to have a small fluid collection along the anterior t ibialis tendon and anteromedial tibia. She was taken to the operating room on 05/19/2017 where an in cision and drainage procedure was performed of this left lower leg abscess. Iodoform gauze packing w as applied. The patient has since been lost to follow up and we are now reconsulted to see patient s arline she is in the hospital for this cough and chest pain. PAST MEDICAL HISTORY: Remarkable for COPD, atrial fibrillation, diabetes, chronic venous stasis, mor bid obesity, hypertension, and peripheral edema. PAST SURGICAL HISTORY: Includes cholecystectomy, , tonsillectomy as well as incision and dr dugan of leg abscess. ALLERGIES: PENICILLIN. MEDICATIONS: At time of admission include multivitamins, Eliquis, aspirin, Protonix, folic acid, ibu profen, Zocor, Celexa, and clindamycin as well as ferrous sulfate, and Synthroid. FAMILY HISTORY: Noncontributory. REVIEW OF SYSTEMS: The patient denies recent fevers, chills or sweats. She does have a history of c ough and chest pain prior to this most recent admission. 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 PHYSICAL EXAMINATION: VITAL SIGNS: She was found to be afebrile with a heart rate of 60, respiratory rate of 20. HEENT: Atraumatic, normocephalic. The patient is breathing comfortably. EXTREMITIES: Remarkable for a left lower extremity with anteromedial wound. There are retained sutu res with some skin overgrowth around the suture. The most dependent or most distal portion of the wo und is open and this was where the iodoform packing was placed and today, there is still iodoform in place. I believe this was recently changed by Wound Care. I do not appreciate any surrounding eryth marlen of the skin and there does not appear to be any new fluctuance in a need of drainage. LABORATORY DATA: On admission, she was found to have a white count of 4.4, hematocrit of 30.4 and 10 8,000 platelets. ASSESSMENT: A 62-year-old female with history of abscess of left lower extremity, now with retained sutures and wound that is still not fully healed. PLAN: At this time, we will have wound care continue seen patient. I would also like to discuss wit h them the possible need for wound VAC. I do not see any need for further surgical intervention as t he wound is open and it does not appear to be any abscess cavity present or any surrounding erythema consistent with worsening cellulitis. We will have the sutures removed by the Wound Care team and [place] ve them continue with dressing changes.
[2017-06-22 05:28] LABS: #Eosinphils 0.3 thou/uL (0.0-0.7); #Lymphocytes 1.4 thou/uL (1.20-3.40); #Monocytes 0.6 thou/uL (0.11-0.59); #Neutrophils 1.6 thou/uL (1.40-6.50); %Basophils 0.8 % (0.0-1.0); %Eosinophils 7.7 % (0.0-10.0); %Monocytes 14.4 % (0.0-10.0); Hematocrit 24.6 % (36.0-47.0); Hematocrit 25.7 % (36.0-47.0); Mean Platelet Volume 8.4 fL (7.4-10.4); Red Blood Cell (RBC) Count 2.26 mill/uL (4.20-5.40)
[2017-06-22 05:39] LABS: BUN (Urea Nitrogen) 10 mg/dL (9.8-20.1); Calc. Creatinine Clearance 201 mL/min (70-130); Calcium 7.8 mg/dL (7.8-10.44); Estimated GFR-MDRD 79
[2017-06-22] MEDS: Levothyroxine Sodium 125 MCG TAB PO SCH (05:42)
[2017-06-22] MEDS: Vancomycin HCl 1 GM in Premix Bag 1 BAG IVPB SCH ×2 (05:42→18:45)
[2017-06-22 05:49] LABS: Anion Gap 5 mmol/L (10-20); Chloride 98 mmol/L (98-107)
[2017-06-22 05:52] LABS: Carbon Dioxide 41 mmol/L (22-29)
--- NOTE | 2017-06-22 07:33 | PDOC.FM ---
- Subjective Subjective: Patient is sitting up in bed talking with son on the phone. She reports she is breathing a little easier, but still has SOB. Is alert and oriented, not drifting in and out of conversation. Reports pain in b/l legs. Overnight, the night team was called on a critical value of 41 on CO2, but per RT, patient was not on CPAP all night. Was placed on CPAP around 2am and labs were drawn around 4am. This is likely the cause of critical value, but patient not symptomatic from critical value. - Objective MAR Reviewed: Yes Vital Signs & Weight: Vital Signs (12 hours) Temp Pulse Resp BP Pulse Ox 06/22/17 04:29 100 06/22/17 04:28 100 06/21/17 20:00 98.2 F 60 20 114/67 97 Weight Admit Weight 160 kg Weight 160 kg I&O: 06/21/17 06/22/17 06/23/17 06:59 06:59 06:59 Intake Total 1000 900 Balance 1000 900 Result Diagrams: 06/22/17 04:52 06/22/17 04:52 <Francesca Hebert - Last Filed: 06/22/17 17:27> - Objective Vital Signs & Weight: Vital Signs (12 hours) Temp Pulse Resp BP Pulse Ox 06/23/17 08:00 97.8 F 61 16 96 06/23/17 07:47 97.8 F 61 16 124/62 96 Weight Admit Weight 160 kg Weight 160 kg I&O: 06/22/17 06/23/17 06/24/17 06:59 06:59 06:59 Intake Total 900 892.5 Balance 900 892.5 Result Diagrams: 06/23/17 04:21 06/23/17 04:21 <Maribel Siddiqui - Last Filed: 06/23/17 19:17> Phys Exam - Physical Examination Constitutional: NAD HEENT: moist MMs decreased breath sounds, mildly increased work of breathing Cardiovascular: RRR, no significant murmur Gastrointestinal: soft, no distention tenderness to folds of pannus Musculoskeletal: edema present erythema and pitting edema to b/l legs, ttp, wound with wound vac in place Neurological: non-focal, moves all 4 limbs Psychiatric: normal affect, A&O x 3 Skin: cap refill <2 seconds <Francesca Hebert - Last Filed: 06/22/17 17:27> Dx/Plan (1) Macrocytic anemia Code(s): D53.9 - NUTRITIONAL ANEMIA, UNSPECIFIED Status: Acute (2) COPD (chronic obstructive pulmonary disease) Status: Acute (3) GERD (gastroesophageal reflux disease) Code(s): K21.9 - GASTRO-ESOPHAGEAL REFLUX DISEASE WITHOUT ESOPHAGITIS Status: Acute (4) KATE (obstructive sleep apnea) Code(s): G47.33 - OBSTRUCTIVE SLEEP APNEA (ADULT) (PEDIATRIC) Status: Acute (5) Panniculitis Code(s): M79.3 - PANNICULITIS, UNSPECIFIED Status: Acute (6) Pneumonia Code(s): J18.9 - PNEUMONIA, UNSPECIFIED ORGANISM Status: Acute (7) Altered mental status Code(s): R41.82 - ALTERED MENTAL STATUS, UNSPECIFIED Status: Acute - Plan Plan: Hospital Acquired Pneumonia -She was recently discharge from hospital less than a month ago -Currently on Vanc, Cefepime, and levaquin, consider deescalation to Bactrim and Levaquin PO tomorrow -No fevers overnight. -Pt reports doing better. -Requiring 2 L O2 at this time, this is her home regimen -Blood Cx-NGTD -Urine Cx- NGTD Chronic Venostasis -Possible cellulitis -No warmth noted. L. Leg dressed and no drainage noted. -Will continue to monitor -On abx, will cover cellullits infection if there is one -one dose of Lasix to see how the swelling responds Panniculitis -Lotrimin cream Paroxysmal A. fib -RRR at this time. -HR normal -Continue Eliquis -Will continue to monitor Hypothyroidism -continue home meds GERD -continue home meds Chronic Macrocytic Anemia with Pancytopenia -B12 and folate normal at past visit -Peripheral smear ordered -likely multifactoral, but evaluate for hemolysis with peripheral smear -retic count elevated -will need BM biopsy outpatient for Pancytopenia KATE -On O2 at this time -CPAP overnight. <Francesca Hebert - Last Filed: 06/22/17 17:27> Attending Addendum - Attending Addendum I personally evaluated the patient and discussed the management with Dr. Hebert on 06/22/17. I agree with the History, Examination, Assessment and Plan documented above with any addition or exceptions noted below. The patient was off bipap during rounds. She was feeling better and more alert. Pt has wound vac in place. Will discuss placement vs home health with case management. <Maribel Siddiqui - Last Filed: 06/23/17 19:17>
[2017-06-22] MEDS: Apixaban 5 MG TAB PO SCH ×2 (07:36→20:48)
[2017-06-22] MEDS: Folic Acid 1 MG TAB PO SCH (07:36)
[2017-06-22] MEDS: Ferrous Sulfate 325 MG TAB PO SCH ×2 (07:36→18:45)
[2017-06-22] MEDS: Citalopram 20 MG TAB PO SCH (07:37)
[2017-06-22] MEDS: Cefepime 2 GM in Syringe 12.5 ML SLOW IVP SCH ×2 (07:38→20:48)
[2017-06-22] MEDS ORDERED: Furosemide 40 MG/4 ML VIAL SLOW IVP SCH (18:15)
[2017-06-22] MEDS: Stress 600 With Zinc 1 TAB PO SCH (18:46)
[2017-06-22] MEDS: Clotrimazole 1 % Cream 30 GM TUBE TOP SCH (18:46)
[2017-06-22] MEDS: Acetaminophen 325 MG TAB PO PRN (20:48)
[2017-06-22] MEDS: Atorvastatin Calcium 10 MG TAB PO SCH (20:48)
[2017-06-23 05:10] LABS: BUN (Urea Nitrogen) 11 mg/dL (9.8-20.1); Calc. Creatinine Clearance 204 mL/min (70-130); Calcium 7.9 mg/dL (7.8-10.44); Estimated GFR-MDRD 80
[2017-06-23 05:18] LABS: Band 6 % (5-11); Hematocrit 24.9 % (36.0-47.0); Mean Platelet Volume 8.4 fL (7.4-10.4); Neutrophil 39 % (42-75); Red Blood Cell (RBC) Count 2.32 mill/uL (4.20-5.40); White Blood Cell (WBC) Count 4.6 thou/uL (4.8-10.8)
[2017-06-23 05:19] LABS: Anion Gap 11 mmol/L (10-20); Carbon Dioxide 37 mmol/L (22-29); Chloride 96 mmol/L (98-107)
[2017-06-23] MEDS: Vancomycin HCl 1 GM in Premix Bag 1 BAG IVPB SCH (05:57)
[2017-06-23] MEDS: Levothyroxine Sodium 125 MCG TAB PO SCH (05:58)
[2017-06-23 07:47] VITALS: BP 124/62; TEMP 97.8
[2017-06-23] MEDS ORDERED: Cefepime 2 GM, Syringe 2.5 ML in Sterile Water 10 ML SLOW IVP SCH (09:00)
[2017-06-23] MEDS: Ferrous Sulfate 325 MG TAB PO SCH (09:44)
[2017-06-23] MEDS: Folic Acid 1 MG TAB PO SCH (09:44)
[2017-06-23] MEDS: Apixaban 5 MG TAB PO SCH (09:44)
[2017-06-23] MEDS: Stress 600 With Zinc 1 TAB PO SCH (09:44)
[2017-06-23] MEDS: Citalopram 20 MG TAB PO SCH (09:44)
[2017-06-23] MEDS: Clotrimazole 1 % Cream 30 GM TUBE TOP SCH (09:46)
[2017-06-23] MEDS ORDERED: Furosemide 20 MG TAB PO SCH (10:30)
[2017-06-23] MEDS ORDERED: Potassium Chloride 20 MEQ TAB PO SCH (10:30)
--- NOTE | 2017-06-23 12:49 | PDOC.FM ---
- Subjective Subjective: Patient doing well this morning. Feels much better today, reporting no trouble breathing and decreased leg swelling. Still reports pain in the area of her wound on L leg. Discussed discharge to alf facility with CM yesterday and patient declined due to the fact that she would have to go to a facility outside of [place] because of an outstanding balance at [facility]. Patient reports she is not able to walk up the stairs to her trailer and knows that in an emergency situation she would at home because of her inability to get around easily. After discussing this, patient still wants to go home. CM is working on obtaining home health and wound care outpatient. - Objective MAR Reviewed: Yes Vital Signs & Weight: Vital Signs (12 hours) Temp Pulse Resp BP Pulse Ox 06/23/17 08:00 97.8 F 61 16 96 06/23/17 07:47 97.8 F 61 16 124/62 96 06/23/17 02:40 98 Weight Admit Weight 160 kg Weight 160 kg I&O: 06/22/17 06/23/17 06/24/17 06:59 06:59 06:59 Intake Total 900 892.5 Balance 900 892.5 Result Diagrams: 06/23/17 04:21 06/23/17 04:21 <Francesca Hebert - Last Filed: 06/23/17 13:03> - Objective Vital Signs & Weight: Vital Signs (12 hours) Temp Pulse Resp BP Pulse Ox 06/23/17 08:00 97.8 F 61 16 96 06/23/17 07:47 97.8 F 61 16 124/62 96 Weight Admit Weight 160 kg Weight 160 kg I&O: 06/22/17 06/23/17 06/24/17 06:59 06:59 06:59 Intake Total 900 892.5 Balance 900 892.5 Result Diagrams: 06/23/17 04:21 06/23/17 04:21 <Maribel Siddiqui - Last Filed: 06/23/17 19:30> Phys Exam - Physical Examination Constitutional: NAD HEENT: moist MMs Respiratory: no wheezing, no rales, no rhonchi, clear to auscultation bilateral Cardiovascular: RRR systolic murmur Gastrointestinal: soft, non-tender, no distention Musculoskeletal: pulses present trace edema, erythematous skin changes b/l, and wound on L leg with wound vac in place Neurological: non-focal, moves all 4 limbs Psychiatric: normal affect, A&O x 3 <Francesca Hebert - Last Filed: 06/23/17 13:03> Dx/Plan (1) Macrocytic anemia Code(s): D53.9 - NUTRITIONAL ANEMIA, UNSPECIFIED Status: Acute (2) COPD (chronic obstructive pulmonary disease) Status: Acute (3) GERD (gastroesophageal reflux disease) Code(s): K21.9 - GASTRO-ESOPHAGEAL REFLUX DISEASE WITHOUT ESOPHAGITIS Status: Acute (4) KATE (obstructive sleep apnea) Code(s): G47.33 - OBSTRUCTIVE SLEEP APNEA (ADULT) (PEDIATRIC) Status: Acute (5) Panniculitis Code(s): M79.3 - PANNICULITIS, UNSPECIFIED Status: Acute (6) Pneumonia Code(s): J18.9 - PNEUMONIA, UNSPECIFIED ORGANISM Status: Acute (7) Altered mental status Code(s): R41.82 - ALTERED MENTAL STATUS, UNSPECIFIED Status: Acute - Plan Plan: Hospital Acquired Pneumonia -She was recently discharge from hospital less than a month ago -Transitioned to PO Bactrim and Levaquin -No fevers overnight. -Pt reports doing better. -Requiring 2 L O2 at this time, this is her home regimen -Blood Cx-NGTD -Urine Cx- NGTD Chronic Venostasis -No warmth noted. L. Leg wound vac in place per Dr. Jonas -Will need wound care outpatient -Responded well to lasix, pt with hx of diastolic HF, will continue lasix 40mg PO daily Panniculitis -Lotrimin cream Paroxysmal A. fib -RRR at this time. -HR normal -Continue Eliquis -Will continue to monitor Hypothyroidism -continue home meds GERD -continue home meds Chronic Macrocytic Anemia with Pancytopenia -B12 and folate normal at past visit -Peripheral smear nonspecific -retic count elevated -concern for myelodysplastic process, will need BM biopsy outpatient for Pancytopenia KATE -On O2 at this time -CPAP overnight. <Francesca Hebert - Last Filed: 06/23/17 13:03> Attending Addendum - Attending Addendum I personally evaluated the patient and discussed the management with Dr. Hebert. I agree with the History, Examination, Assessment and Plan documented above with any addition or exceptions noted below. The patient is doing well this morning. She is awake and alert and denies complaints. LE edema improved with lasix. Will continue. Pt cannot go to SNF. Home health is being arranged for wound care and pt will be discharged. <Maribel Siddiqui - Last Filed: 06/23/17 19:30>
[2017-06-23] MEDS ORDERED: Sulfameth/Trimethoprim DS 800-160mg TAB PO SCH (21:00)
[2017-06-24] MEDS ORDERED: Furosemide 40 MG TAB PO SCH (07:30)
[2017-06-24] MEDS ORDERED: Potassium Chloride 20 MEQ TAB PO SCH (08:00)
== END 2017-06-23 16:05 | disposition home health service (06) | DRG 193 ==
LOC: ERS 14:32 → T4-B 17:00
PROVIDERS: ADMIT Student in an Organized Health Care Education/Training Program; ATTEND Student in an Organized Health Care Education/Training Program
PROC: 5A09357 Assistance with Respiratory Ventilation, Less than 24 Consecutive Hours, Continuous Positive Airway Pressure (ICD-10-PCS; principal; 2017-06-21)
DX: J18.9 Pneumonia, unspecified organism (principal); J96.22 Acute and chronic respiratory failure with hypercapnia; D61.818 Other pancytopenia; J44.0 Chronic obstructive pulmonary disease with (acute) lower respiratory infection; Z68.44 Body mass index [BMI] 60.0-69.9, adult; Z99.81 Dependence on supplemental oxygen; F17.210 Nicotine dependence, cigarettes, uncomplicated; Y95 Nosocomial condition; E66.01 Morbid (severe) obesity due to excess calories; G47.33 Obstructive sleep apnea (adult) (pediatric); I48.0 Paroxysmal atrial fibrillation; Z79.01 Long term (current) use of anticoagulants; M79.3 Panniculitis, unspecified; D53.9 Nutritional anemia, unspecified; K21.9 Gastro-esophageal reflux disease without esophagitis; I10 Essential (primary) hypertension; E03.9 Hypothyroidism, unspecified; I87.8 Other specified disorders of veins; F32.9 Major depressive disorder, single episode, unspecified; Z88.0 Allergy status to penicillin; Z48.02 Encounter for removal of sutures
CPT/HCPCS: 36415; 36416; 51701; 70450; 71010; 80048; 80053; 80202; 81003; 82274; 82550; 82553; 82805; 83605; 84484; 85025; 85610; 85730; 87040; 87086; 93005; 94660; 96365; 96367; A4216; A4353; G8978-GP-CM; G8979-GP-CJ; G8987-GO-CL; G8988-GO-CK; J0692; J1940; J1956; J2185; J3370; J7050

== ENCOUNTER 2017-07-07 17:20 | Inpatient (IN) | payer OTHER ==
[2017-07-07 18:10] LABS: Mean Platelet Volume 8.6 fL (7.4-10.4); Red Blood Cell (RBC) Count 2.89 mill/uL (4.20-5.40); White Blood Cell (WBC) Count 14.6 thou/uL (4.8-10.8)
[2017-07-07 18:23] LABS: ALT (SGPT) 34 U/L (8-55); AST (SGOT) 88 U/L (5-34); Alkaline Phosphatase 202 U/L (40-150); Anion Gap 9 mmol/L (10-20); BUN (Urea Nitrogen) 18 mg/dL (9.8-20.1); Bilirubin, Total 1.3 mg/dL (0.2-1.2); Calc. Creatinine Clearance 0 mL/min (70-130); Calcium 8.2 mg/dL (7.8-10.44); Carbon Dioxide 28 mmol/L (22-29); Chloride 103 mmol/L (98-107); Estimated GFR-MDRD 76; Globulin 5.3 g/dL (2.4-3.5); Protein, Total 7.8 g/dL (6.0-8.3)
[2017-07-07 18:27] LABS: Troponin I 0.019 ng/mL (< 0.028)
[2017-07-07 18:33] LABS: Band 14 % (5-11); Hypochromia SLIGHT = 6-15 cells (100X) (0-5/hpf); Macrocytosis SLIGHT = 6-15 cells (100X) (0-5/hpf); Neutrophil 75 % (42-75); Target Cells SLIGHT = 2-5 cells (100X) (0-1/hpf)
--- NOTE | 2017-07-07 18:53 | CT ---
EXAM: NONCONTRAST HEAD CT 07/07/17 COMPARISON: 06/19/17. HISTORY: Headache. TECHNIQUE: Noncontrast head CT is performed from skull base to skull vertex. FINDINGS: No parenchymal hemorrhage. No extra-axial hematoma. No midline shift. Basilar cisterns are patent. Br ain volume, age appropriate. Cortical cunningham-white matter differentiation is preserved. Ventricles and sulci are patent and symmetric. Calvarium is intact. Adequate aeration of the sinuses and mastoid air cells. IMPRESSION: No acute intracranial process. POS: [facility]
--- NOTE | 2017-07-07 19:05 | RAD ---
EXAM: RIGHT HIP TWO VIEWS 07/07/17 HISTORY: Pain. COMPARISON: 08/20/15. FINDINGS: Cross-table lateral is suboptimal. Based on this single AP projection, no fracture. Joint space appea rs to be preserved. IMPRESSION: Limited evaluation. No obvious fracture. Consider CT, if patient can not bear weight. POS: [facility]
--- NOTE | 2017-07-07 19:09 | RAD ---
EXAM: TWO VIEWS ABDOMEN CHEST ONE VIEW 07/07/17 HISTORY: Nausea. Vomiting. COMPARISON: 08/26/02. FINDINGS: ONE VIEW CHEST: Enlarged cardiac silhouette. Pulmonary vessels are slightly prominent. Costophrenic angles are clear. No masses or consolidation. No pneumothorax. TWO VIEWS ABDOMEN: Nonspecific bowel gas pattern. There are a few air filled nondistended, nondilated loops of small bow el. Scattered fecal material in a nondistended, nondilated colon. On the right lateral decubitus view s, no evidence of pneumoperitoneum. There are surgical clips in the abdomen. IMPRESSION: 1. Cardiomegaly. Pulmonary vascular prominence. Correlate for congestive heart failure. 2. Nonspecific bowel gas pattern. POS: [facility]
[2017-07-07] MEDS ORDERED: Acetaminophen 325 MG TAB ONE (21:18)
[2017-07-07] MEDS ORDERED: Acetaminophen 650 MG Suppository ONE (21:18)
[2017-07-07] MEDS ORDERED: Promethazine HCl 25 MG/ML VIAL ONE (21:18)
[2017-07-07] MEDS ORDERED: diphenhydrAMINE 50 MG/ML VIAL ONE (21:18)
[2017-07-07] MEDS ORDERED: methylPREDNISolone Sod Succ/PF 125 MG/2 ML VIAL ONE (21:25)
[2017-07-07] MEDS ORDERED: Clindamycin/D5W 900 mg/50 ml Premix Bag ONE (22:23)
[2017-07-07] MEDS ORDERED: Cefepime 2 GM/10 ML SYR ONE (22:23)
[2017-07-07] MEDS ORDERED: Clindamycin/D5W 900 MG in Premix Bag 1 BAG IVPB SCH (22:30)
[2017-07-08] MEDS ORDERED: Ondansetron ODT 4 MG TAB PO PRN (00:21)
[2017-07-08] MEDS: Sodium Chloride 0.9% 1,000 ML IV SCH ×4 (02:17→22:42)
[2017-07-08 06:24] LABS: #Lymphocytes 0.8 thou/uL (1.20-3.40); #Monocytes 0.1 thou/uL (0.11-0.59); %Basophils 0.1 % (0.0-1.0); %Eosinophils 0.1 % (0.0-10.0); %Lymphocytes 7.8 % (21.0-51.0); %Monocytes 1.2 % (0.0-10.0); Hematocrit 27.9 % (36.0-47.0); Mean Platelet Volume 9.8 fL (7.4-10.4); White Blood Cell (WBC) Count 9.9 thou/uL (4.8-10.8)
[2017-07-08] MEDS: Levothyroxine Sodium 125 MCG TAB PO SCH (06:53)
[2017-07-08] MEDS: Furosemide 40 MG TAB PO SCH (06:53)
[2017-07-08 07:29] LABS: Bilirubin Negative (Negative); Blood, Urine Negative (Negative); Glucose, Urine (Dipstick) Negative (Negative); Ketone, Urine Negative (Negative); Nitrite Negative (Negative); Protein, Urine (Dipstick) Negative (Neg-Trace); Urobilinogen 0.2 mg/dL (0.2-1.0)
--- NOTE | 2017-07-08 07:56 | ULT ---
RIGHT UPPER QUADRANT ULTRASOUND: HISTORY: Liver function tests, elevated bilirubin, AST, and alkaline phosphatase levels. TECHNIQUE: Multiplanar, cunningham scale, sonographic imaging of the right upper quadrant obtained. FINDINGS: The gallbladder is nonvisualized, consistent with the provided history of cholecystectomy. The image d pancreas is unremarkable, distal body/tail obscured by bowel gas. Body habitus limits detailed assessment of the liver and right kidney. Portions of the right kidney are obscured by shadowing. The right kidney measures approximately 11.5 cm with no evidence for hydr onephrosis. The common bile duct cannot be visualized secondary to shadowing. 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 IMPRESSION: Status post cholecystectomy. Suboptimal assessment of the right upper quadrant secondary to shadowin g from bowel gas and patient body habitus. POS: [facility]
[2017-07-08 08:18] LABS: Chloride 105 mmol/L (98-107)
[2017-07-08 08:19] LABS: Calcium 7.9 mg/dL (7.8-10.44)
[2017-07-08 08:20] LABS: Globulin 5.1 g/dL (2.4-3.5); Protein, Total 7.4 g/dL (6.0-8.3)
[2017-07-08 08:21] LABS: Anion Gap 9 mmol/L (10-20); Carbon Dioxide 25 mmol/L (22-29)
[2017-07-08 08:22] LABS: Alkaline Phosphatase 170 U/L (40-150)
[2017-07-08 08:23] LABS: Calc. Creatinine Clearance 179 mL/min (70-130); Estimated GFR-MDRD 74
[2017-07-08 08:24] LABS: BUN (Urea Nitrogen) 20 mg/dL (9.8-20.1)
[2017-07-08 08:25] LABS: ALT (SGPT) 32 U/L (8-55); AST (SGOT) 72 U/L (5-34)
[2017-07-08] MEDS ORDERED: Cefepime 2 GM in Sodium Chloride 0.9% 100 ML IVPB SCH (09:00)
[2017-07-08] MEDS ORDERED: Iopamidol 370 76% 50 ML VIAL FS ONE (09:48)
[2017-07-08] MEDS ORDERED: ISOVUE-370 76%-LOCM 1 ML ONE (09:48)
[2017-07-08] MEDS: Apixaban 5 MG TAB PO SCH ×2 (10:01→22:41)
[2017-07-08] MEDS: Potassium Chloride 20 MEQ TAB PO SCH (10:01)
[2017-07-08] MEDS: Cefepime 2 GM, Syringe 2.5 ML in Sterile Water 10 ML SLOW IVP SCH ×2 (10:01→22:42)
[2017-07-08] MEDS: Citalopram 20 MG TAB PO SCH (10:01)
[2017-07-08] MEDS: Folic Acid/Vit B Comp W-C PO SCH (10:02)
[2017-07-08] MEDS: Ferrous Sulfate 325 MG TAB PO SCH ×2 (10:02→18:07)
[2017-07-08] MEDS: Clotrimazole 1 % Cream 30 GM TUBE TOP SCH (10:02)
[2017-07-08] MEDS: Folic Acid 1 MG TAB PO SCH (10:02)
--- NOTE | 2017-07-08 10:24 | PDOC.FM ---
- Subjective Subjective: CC: Abdominal pain HPI: Patient was sleeping at time of exam. would complain of RLQ/R hip pain when awake but did not wake up when abdomen was examined. - Objective MAR Reviewed: Yes Vital Signs & Weight: Vital Signs (12 hours) Temp Pulse Resp BP Pulse Ox 07/08/17 08:19 97.8 F 63 18 128/74 07/08/17 01:00 99.4 F 78 22 H 99 07/07/17 23:35 99.4 F 78 22 H 118/66 99 I&O: 07/07/17 07/08/17 07/09/17 06:59 06:59 06:59 Intake Total 500 Output Total 325 Balance 175 Result Diagrams: 07/08/17 05:52 07/08/17 07:55 Radiology Reviewed by me: Yes (No signs of osteomyelitis on XR) <Juan R Burton W - Last Filed: 07/08/17 10:22> - Objective Vital Signs & Weight: Vital Signs (12 hours) Temp Pulse Resp BP Pulse Ox Pulse Ox Pulse Ox 07/08/17 12:24 97.7 F 73 14 117/61 97 07/08/17 10:06 94 L 92 L 07/08/17 08:19 97.8 F 63 18 128/74 I&O: 07/07/17 07/08/17 07/09/17 06:59 06:59 06:59 Intake Total 500 Output Total 325 Balance 175 Result Diagrams: 07/08/17 05:52 07/08/17 10:40 <Ho Villalobos A - Last Filed: 07/08/17 13:06> Phys Exam - Physical Examination Constitutional: NAD (obese) HEENT: moist MMs, sclera anicteric Respiratory: no wheezing, no rales, no rhonchi, clear to auscultation bilateral Cardiovascular: RRR, no significant murmur Gastrointestinal: soft, non-tender, no distention, positive bowel sounds Musculoskeletal: edema present (1+ pitting, equal ) Neurological: non-focal, moves all 4 limbs Psychiatric: normal affect, A&O x 3 Skin: normal turgor, cap refill <2 seconds Deviation from normal: bilateral stasis dermatitis of lower extremeities. LLL wound has no depth -: [id number], well appearing granulation tissue <Juan R Burton - Last Filed: 07/08/17 10:22> Dx/Plan (1) SIRS (systemic inflammatory response syndrome) Code(s): R65.10 - SIRS OF NON-INFECTIOUS ORIGIN W/O ACUTE ORGAN DYSFUNCTION Status: Acute Plan: Vanc/cefepime day 1. VSS. - No obvious source of infection. leg wound is healing well and has no surrounding warmth or erythema. legs consistent with stasis dermatitis. - ID consulted due to chronically elevated inflammatory marker. will await recommendations. - ordered CXR to evaluate for infection in lungs. (2) Stasis dermatitis of both legs Code(s): I87.2 - VENOUS INSUFFICIENCY (CHRONIC) (PERIPHERAL) Status: Acute Plan: chronic. wound care consulted to address left leg wound. - checking TTE to monitor for worsening heart failure. (3) Abdominal pain Code(s): R10.9 - UNSPECIFIED ABDOMINAL PAIN Status: Acute QualifierTitle: Abdominal location: generalized Qualified Code(s): R10.84 - Generalized abdominal pain Plan: complains of RLQ pain but does not wake up during examination. - CT abdomen/pelvis taken and pending. (4) Hypertension Code(s): I10 - ESSENTIAL (PRIMARY) HYPERTENSION Status: Chronic QualifierTitle: Hypertension type: essential hypertension Qualified Code( s): I10 - Essential (primary) hypertension Plan: monitor. home medications. (5) KATE treated with BiPAP Code(s): G47.33 - OBSTRUCTIVE SLEEP APNEA (ADULT) (PEDIATRIC) Status: Chronic (6) Obesity, morbid Code(s): E66.01 - MORBID (SEVERE) OBESITY DUE TO EXCESS CALORIES Status: Chronic <Juan R Burton - Last Filed: 07/08/17 10:22> Attending Addendum - Attending Addendum I personally evaluated the patient and discussed the management with Dr. Burton. I agree with the History, Examination, Assessment and Plan documented above with any addition or exceptions noted below. Doing well today. Will get IDs opinion of cellulitis vs merely stasis dermatitis. <Ho Villalobos - Last Filed: 07/08/17 13:06>
[2017-07-08 11:30] LABS: Anion Gap 8 mmol/L (10-20); BUN (Urea Nitrogen) 20 mg/dL (9.8-20.1); Calc. Creatinine Clearance 183 mL/min (70-130); Calcium 7.9 mg/dL (7.8-10.44); Carbon Dioxide 24 mmol/L (22-29); Chloride 105 mmol/L (98-107); Estimated GFR-MDRD 76
--- NOTE | 2017-07-08 11:30 | CT ---
CT ABDOMEN AND PELVIS WITH IV AND ORAL CONTRAST: Date: 07/08/17 HISTORY: Right lower quadrant abdominal pain. FINDINGS: Comparison made with exams of 03/21/17, 02/17/17, and 10/29/14. There are atelectatic changes versus mild infiltrates at the lung bases. No free air, free fluid, or lymphadenopathy seen in the abdomen or pelvis. Changes of cholecystectomy are again noted. There are changes of cirrhosis of the liver. The spleen, pancreas, and adrenal glands are unremarkabl e. A low density lesion arising from the inferior pole of the right kidney, likely cyst, is stable. T iny, nonobstructing left renal calculus is present. The small bowel loops are not abnormally dilated. No pericecal inflammatory changes or abnormal dilat ed fluid-filled appendix seen. There is a stable, fat-containing umbilical hernia. A Magana catheter is present in the urinary bladder. There are vascular calcifications without evidence of aneurysmal d ilatation of the abdominal aorta. Uterus is present. There are degenerative changes in the spine. Exam is limited due to patient's body habitus. IMPRESSION: 1. No acute abnormality in the abdomen or pelvis. 2. Bibasilar infiltrates/atelectatic changes. 3. Cirrhosis of the liver. 4. Nonobstructing tiny left renal calculus. 5. Stable mass arising from the inferior pole of the right kidney since 10/29/14. 6. Fat-containing umbilical hernia. POS: [facility]
--- NOTE | 2017-07-08 12:58 | RAD ---
LEFT TIBIA AND FIBULA: 07/08/2017 HISTORY: Cellulitis. Assess for osteomyelitis. COMPARISON: 06/15/2017 FINDINGS: There is pes planus deformity with enthesophyte formation at the origin of the plantar aponeurosis an d significant mid foot degenerative change. This is not well assessed on this examination. Dedicate d left foot imaging is advised, as clinically indicated. A degree of developing neuropathic joint ca nnot be excluded. The frontal and lateral imaging of the left tibia and fibula demonstrates no evidence for fracture or dislocation. There may be an ulceration involving the soft tissues medial to the distal left tibial shaft. There is severe degenerative change within the left knee, incompletely imaged. No subcutane ous gas. No obvious bone destruction. IMPRESSION: Chronic appearing findings as above. In addition, there is probable ulceration along the medial soft tissues, adjacent to the distal left tibial shaft. If there is concern for osteomyelitis, MRI is morrissey ggested. POS: [facility]
--- NOTE | 2017-07-08 13:36 | HP-2 ---
CODE STATUS: FULL. PRIMARY CARE PHYSICIAN: Jaguar Hughes D.O. ATTENDING: Dr. Cholo Karimi. RESIDENT: Dr. Francesca Hebert. HISTORIAN: Patient. CHIEF COMPLAINT: Headache, left lower extremity pain, right hip pain, abdominal pain. HISTORY OF PRESENT ILLNESS: The patient is a 62-year-old female with past medical history of multipl e skin infections, chronic venous stasis, and recent admission for pneumonia as well as a leg wound f rom prior I&D that required wound VAC placement. She comes in with headache and right hip pain as we ll as left leg pain and abdominal pain. All these symptoms started yesterday. She is a poor histori an, so history is limited by that. Admits to some nausea. No fever. No vision changes. No pain wi th chewing. Also reports diarrhea and black stools x1 month. The patient has no sick contact. Woun d VAC is in place and the patient reports coming by on Wednesday to change it out. The patient does endorse that pain has significantly increased over the past couple of days and the leg is very t surinder to palpation. In the ER, she was given prednisolone, vancomycin, and clindamycin. PAST MEDICAL HISTORY: 1. Chronic venous stasis. 2. Macrocytic anemia. 3. Hyperlipidemia. 4. KATE. 5. Morbid obesity. 6. Paroxysmal AFIB. 7. Depression. 8. Hypothyroidism. 9. Tobacco abuse. PAST SURGICAL HISTORY: 1. Cholecystectomy. 2. . 3. Tonsillectomy. 4. I&D of the leg. ALLERGIES: PENICILLIN and AMOXICILLIN. MEDICATIONS: 1. Eliquis 5 mg b.i.d. 2. Aspirin 81 mg daily. 3. Lipitor 10 mg at bedtime. 4. Celexa 20 mg p.o. daily. 5. Clotrimazole topical. 6. Lasix 40 mg daily. 7. Synthroid 125 mcg daily. 8. Protonix 40 mg daily. 9. K-Dur 40 mEq p.o. daily. 10. Multivitamin daily. FAMILY HISTORY: Noncontributory. SOCIAL HISTORY: Denies alcohol and drug use. Does report tobacco use. REVIEW OF SYSTEMS: GENERAL: The patient denies fever and chills. Endorses headache. EYES: No vis ion changes. RESPIRATORY: No cough, congestion or shortness of breath. CARDIOVASCULAR: No chest p ain or palpitations. Does report orthopnea. GASTROINTESTINAL: Reports nausea, no vomiting with pepito rrhea and abdominal pain. SKIN: Does report lesions. MUSCULOSKELETAL: Reports pain in the left lo wer extremity and right hip. PSYCHIATRIC: Reports mild depression. PHYSICAL EXAMINATION: VITAL SIGNS: Blood pressure 118/58, pulse 80, respiratory rate 22, T-max 98.8, pulse ox 96% on 2 lit ers, currently 149.7 kilograms. GENERAL: The patient is alert and oriented x4, in no acute distress. Does have morbid obesity. EYES: PERRLA, EOMI. NECK: Supple without lymphadenopathy. CARDIOVASCULAR: Regular rate and rhythm, 2/6 systolic murmur. No gallops or rubs. RESPIRATORY: The patient has normal effort, no retractions. LUNGS: Bases have some mild rhonchi with some coarse breath sounds. SKIN: Warm and dry. EXTREMITIES: On left lower leg, there is a wound VAC in place with erythema around the wound VAC of the leg and extending down towards the foot and up to about three-fourth way up the arce to the knee . It is severely tender to palpation. It does seem to have more heat on the left side greater than right. No clubbing, cyanosis or edema. MUSCULOSKELETAL: Structure within normal limits. NEUROLOGIC: No focal deficits. GCS: 15. PSYCHIATRIC: Appropriate. LABORATORY DATA AND IMAGIN. CBC; white blood cell count 14.6, hemoglobin 9.7, hematocrit 31.0, platelets 118, MCV 107, 14% ba nds, and 75% neutrophils. 2. Sodium 136, potassium 4.2, chloride 103, CO2 28, BUN 18, creatinine 0.71, glucose 68, calcium 8.2 , total protein 7.8, albumin 2.5, AST 88, ALT 34, alkaline phosphatase 202. 3. D-dimer 1.26. CRP 2.53, CK-MB 5.0, troponin 0.019, BNP 302.3. 4. Chest x-ray reveals cardiomegaly, prominent vasculature. 5. Hip x-ray, no acute fractures. 6. Abdominal x-ray reveals nonspecific bowel gas pattern. ASSESSMENT AND PLAN: 1. Sepsis secondary to cellulitis of the left lower extremity, vancomycin and cefepime. We will giv e IV fluids and normal saline at 120. Blood, urine, and wound cultures are pending. Lactic acid and procalcitonin also been pending. 2. Abdominal pain with transaminitis. Right upper quadrant ultrasound as well as CT abdomen with or al contrast. 3. Congestive heart failure, suspected and we will repeat an echo on January 11 and proceed with gentle hydration. 4. Chronic macrocytic anemia, actually improved from last admission. Further workup is needed as an outpatient. It was recommended at last discharge that she see a doctor for possible bone marrow bio psy. 5. Obstructive sleep apnea, on continuous positive airway pressure at bedtime. 6. Elevated D-dimer. It is the lowest that it has been here in the hospital. She does not report s hortness of breath or tachycardia. Not concerned for pulmonary embolism at this time. 7. Acute cytopenia, stable, requiring outpatient workup. 8. Thrombocytopenia, stable. Also, needs outpatient workup. 9. Headache. ESR elevated. Prednisone x1 given. No signs or symptoms of temporal arteritis when c onversing with patient. We will off on daily prednisone for now, but have a low threshold for restar ting it. DISPOSITION AND LENGTH OF HOSPITAL STAY: 1-2 days. Symptomatic medications will be provided. History and physical exam as well as management were discussed with Dr. Cholo Karimi.
--- NOTE | 2017-07-08 13:53 | RAD ---
UPRIGHT PORTABLE CHEST ONE VIEW: HISTORY: A 62-year-old female with tachypnea. COMPARISON: 06/21/2017 FINDINGS: Minimal cardiomegaly. Increased linear and interstitial markings bilaterally and evidence for bilate ral vascular congestion. Possible minimal bilateral interstitial edema. IMPRESSION: Minimal cardiomegaly with bilateral vascular congestion and probable minimal or early interstitial ed marlen. Prominent proximal pulmonary artery segments bilaterally. No significant confluent process. C ontinued short term followup. Large body habitus somewhat lowers the sensitivity of this study. Exc lude some degree of minimal acute interstitial edema. POS: [facility]
--- NOTE | 2017-07-08 19:57 | CON ---
DATE OF CONSULTATION: 07/08/2017 REASON FOR CONSULTATION: Left leg inflammatory change. HISTORY OF PRESENT ILLNESS: A 62-year-old patient whom I last saw in 08/17 with a history of morbid obesity, smoking, type 2 diabetes, COPD, also with lymphedema of lower extremities and recurrent epis odes of cellulitis, who now comes in with a right hip pain and leg pain and abdominal pain. Initial findings include pressure 118/58, pulse 80, respirations 22, temperature 98.8. She described as aler t, mild rhonchi. Her wound VAC is in place in the left lower leg with erythema, markedly tender. INITIAL LABORATORY: White cell count 14.6, hemoglobin 9.7, platelets 118, 75% neutrophils, 14% bands . Chemistry: Creatinine 0.79, sodium 134, albumin 2.5, AST 88, bilirubin 1.3. Urinalysis was jesús l. Microbiology with gram negative snehal from the left ankle wound. Two sets of blood cultures, no gr owth. Prior microbiology from leg, from the end of May with Enterobacter cloacae complex and MRS A. Enterobacter with a very broad susceptibility profile. Currently, Ms. Springer is sleepy, but arousable. She denies any headaches, no visual symptoms, sore throat, odynophagia, dysphagia and no abdominal pain, no genitourinary symptoms. She has marked pain in the left leg. PAST MEDICAL HISTORY: Includes morbid obesity with lymphedema of lower extremities prior episodes of cellulitis, obstructive sleep apnea and hypoventilation syndrome, depression, hypothyroidism, smokin g. PAST SURGICAL HISTORY: Cholecystectomy, , tonsillectomy and leg I&D. ALLERGIES: PENICILLIN with rash. MEDICATIONS: Eliquis, aspirin, Lipitor, Celexa, Lasix, Synthroid, Protonix, K-Dur. FAMILY HISTORY: Noncontributory. SOCIAL HISTORY: Chronic smoker. CURRENT MEDICATION LIST: Eliquis, aspirin, cefepime, furosemide, potassium, ondansetron and vancomyc in. PHYSICAL EXAMINATION: VITAL SIGNS: T-max 99.4, blood pressure 117/61, pulse 73, respirations 14, O2 sat 97%. No distress, very drowsy, has to be stimulated constantly to remain alert. SKIN: Shows the area of leg wound sort of a quadrangular or rectangular shaped wound with fairly hea lthy looking base, some surrounding areas of erythema, venous stasis. The patient has no lymphadenop athy. HEENT: Ocular movements are conjugate. Oral cavity with no significant findings. NECK: Supple. LUNGS: With symmetric air entry without crackles or wheezing. HEART: S1, S2, regular rate. Diminished heart sounds. ABDOMEN: With very prominent panniculus difficult to examine. No tenderness. No bladder distention . The patient does not have Magana catheter, peripheral IV access. She is able to move extremities o n command with significant limitations due to weakness and her weight. DECONDITIONING LABORATORY: Labs have been reviewed above white cell count 14.6, down to 9.9, hemoglo bin 9.7, platelets 118 and 107 and creatinine 0.77. Sodium 133. ASSESSMENT: 1. Morbid obesity. 2. Lymphedema lower extremities with recently debrided abscess, left anterior lower leg. 3. Neutrophilia. 4. Abdominal pain associated with some nausea and right hip pain. DISCUSSION: Differential diagnosis includes cellulitis associated with the left leg abscess possibil ity of hematogenous spread to the right hip is a concern and we will have to follow up her right hip symptoms, may need imaging there. The patient has evidence to suggest steatohepatitis, this has been noticed before with likely advanced liver disease. Continue cefepime and we will probably be able t o discontinue vancomycin, hopefully, eventually transitioned to oral regimen for discharge planning. Hopefully, the right hip symptoms will resolve quickly and we will not require more complex evaluati on, since that will be may difficult by her size.
[2017-07-08] MEDS: Atorvastatin Calcium 10 MG TAB PO SCH (22:41)
[2017-07-09 06:04] LABS: Anion Gap 7 mmol/L (10-20); BUN (Urea Nitrogen) 20 mg/dL (9.8-20.1); Calc. Creatinine Clearance 161 mL/min (70-130); Calcium 7.5 mg/dL (7.8-10.44); Carbon Dioxide 28 mmol/L (22-29); Chloride 106 mmol/L (98-107); Estimated GFR-MDRD 66
[2017-07-09] MEDS: Furosemide 40 MG TAB PO SCH (06:32)
[2017-07-09] MEDS: Levothyroxine Sodium 125 MCG TAB PO SCH (06:32)
[2017-07-09 08:19] LABS: #Lymphocytes 1.7 thou/uL (1.20-3.40); #Monocytes 0.8 thou/uL (0.11-0.59); #Neutrophils 9.3 thou/uL (1.40-6.50); %Basophils 0.2 % (0.0-1.0); %Eosinophils 0.1 % (0.0-10.0); %Monocytes 7.1 % (0.0-10.0); Hematocrit 26.7 % (36.0-47.0); Hypochromia SLIGHT = 6-15 cells (100X) (0-5/hpf); Macrocytosis MODERATE=16-30 cells (100X) (0-5/hpf); Mean Platelet Volume 9.1 fL (7.4-10.4); Polychromasia MODERATE = 3-4 cells (100X) (0-2/hpf); Red Blood Cell (RBC) Count 2.41 mill/uL (4.20-5.40); Target Cells SLIGHT = 2-5 cells (100X) (0-1/hpf); White Blood Cell (WBC) Count 11.8 thou/uL (4.8-10.8)
--- NOTE | 2017-07-09 10:32 | PDOC.FM ---
- Subjective Subjective: CC: Right hip and RLQ pain HPI: States she has significant right lateral hip pain and RLQ pain. Nursing staff has no concerns at this time. - Objective Vital Signs & Weight: Vital Signs (12 hours) Temp Pulse Resp BP Pulse Ox 07/09/17 07:46 97.8 F 80 20 111/65 96 07/09/17 04:30 97.9 F 65 16 123/64 96 07/09/17 04:00 97 07/09/17 03:06 17 95 07/08/17 23:00 98.2 F 71 20 103/61 93 L Weight Admit Weight 149.595 kg Weight 149.595 kg I&O: 07/08/17 07/09/17 07/10/17 06:59 06:59 06:59 Intake Total 500 1930 Output Total 325 1200 Balance 175 730 Result Diagrams: 07/09/17 05:10 07/09/17 05:11 <Juan R Burton W - Last Filed: 07/09/17 10:52> - Objective Vital Signs & Weight: Vital Signs (12 hours) Temp Pulse Resp BP Pulse Ox 07/09/17 11:30 97.3 F L 72 18 119/71 95 07/09/17 08:00 97.3 F L 72 18 07/09/17 07:46 97.8 F 80 20 111/65 96 07/09/17 04:30 97.9 F 65 16 123/64 96 07/09/17 04:00 97 07/09/17 03:06 17 95 Weight Admit Weight 149.595 kg Weight 149.595 kg I&O: 07/08/17 07/09/17 07/10/17 06:59 06:59 06:59 Intake Total 500 1930 Output Total 325 1200 Balance 175 730 Result Diagrams: 07/09/17 05:10 07/09/17 05:11 <Ho Villalobos - Last Filed: 07/09/17 12:48> Phys Exam - Physical Examination Constitutional: NAD HEENT: moist MMs, sclera anicteric Respiratory: no wheezing, clear to auscultation bilateral Cardiovascular: RRR, no significant murmur Gastrointestinal: soft, no distention RLQ TTP Musculoskeletal: edema present (1+, bilateral and equal ) marked TTP along right lateral leg with lateral knee and greater trochanter most tender on exam. Neurological: non-focal, moves all 4 limbs Psychiatric: normal affect, A&O x 3 <Juan R Burton - Last Filed: 07/09/17 10:52> Dx/Plan (1) SIRS (systemic inflammatory response syndrome) Code(s): R65.10 - SIRS OF NON-INFECTIOUS ORIGIN W/O ACUTE ORGAN DYSFUNCTION Status: Acute Plan: Vanc/cefepime day 1. VSS. - No obvious source of infection. leg wound is healing well and has no surrounding warmth or erythema. legs consistent with stasis dermatitis. - ID consulted- concerned for possible spread of infection to Right hip. May need additional imaging. will follow up with recommendations. - CXR showed no infiltrate and possible interstitial edema (2) Acute right hip pain Code(s): M25.551 - PAIN IN RIGHT HIP Status: Acute Plan: Spoke with radiology for further evaluation of the right hip on CT abdomen and pelvis. Stated there was some degree of cortical displacement of right femoral neck but could not exclude right hip fracture. recommending MRI right hip for more complete evaluation. on exam, point of maximal tenderness is in area of greater trochanter - MRI right hip. (3) Stasis dermatitis of both legs Code(s): I87.2 - VENOUS INSUFFICIENCY (CHRONIC) (PERIPHERAL) Status: Acute Plan: chronic. wound care consulted to address left leg wound. - TTE showed normal EF, unable to evaluate diastolic dysfunction. (4) Abdominal pain Code(s): R10.9 - UNSPECIFIED ABDOMINAL PAIN Status: Acute QualifierTitle: Abdominal location: generalized Qualified Code(s): R10.84 - Generalized abdominal pain Plan: complains of RLQ pain but does not wake up during examination. - CT abdomen/pelvis shows not acute changes. (5) Hypertension Code(s): I10 - ESSENTIAL (PRIMARY) HYPERTENSION Status: Chronic QualifierTitle: Hypertension type: essential hypertension Qualified Code( s): I10 - Essential (primary) hypertension Plan: monitor. home medications. (6) KATE treated with BiPAP Code(s): G47.33 - OBSTRUCTIVE SLEEP APNEA (ADULT) (PEDIATRIC) Status: Chronic (7) Obesity, morbid Code(s): E66.01 - MORBID (SEVERE) OBESITY DUE TO EXCESS CALORIES Status: Chronic <Juan R Burton - Last Filed: 07/09/17 10:52> Attending Addendum - Attending Addendum I personally evaluated the patient and discussed the management with Dr. Burton. I agree with the History, Examination, Assessment and Plan documented above with any addition or exceptions noted below. I evaluated the patient while communication with Ms. Springer via a bandsaw operator phone. She notes arthritis pain in right hip for about 1 year. Her hip has hurt a kimberly more and constantly fo 2 weeks. She denies any falls or trauma. She feels liek the pain is "in the meat of her leg." It is constant but worse with activity. On exam she is also exquisitely tender to gentle palpation of her lower legs, bilaterally. She notes tenderess to palaption of her lateral right hip and thigh. It is non focal. Her abdomen is also diffusely tender. She notes that whe she came to the ER it was for nausea adn headache. The nausea is now resolved and the PETERSON is almost gone. She is tearful that her chronic wounds fmo statis dermatitis will never heal. Her CT scan of her abd ad pelvis did not reveal any infectious process. the xrays of her right hip were suboptimal due to morbid obesity. An MRI ahs bene ordered at rad recommendation to help rule out fracture. She seems to have a mixed picture of etiology for pain. She may have a hip fracture. She probably has some element of neuropathy or paresthesia as her pain seems out of proportion to exam. She may also be psychological sensitivity to pain. We will do our best to identify life threatening causes of pain, but on some degree her pain will need outpatient management as well. we apprecaite Dr Crain help with ID issues. Anitbiotics for cellulitis ongoing. I stressed the importantce of diet fro weight loss to improve stasis dermatitis and wound healing. <Ho Villalobos - Last Filed: 07/09/17 12:48>
[2017-07-09] MEDS: Cefepime 2 GM, Syringe 2.5 ML in Sterile Water 10 ML SLOW IVP SCH ×2 (10:59→22:08)
[2017-07-09] MEDS: Folic Acid 1 MG TAB PO SCH (11:00)
[2017-07-09] MEDS: Apixaban 5 MG TAB PO SCH ×2 (11:00→22:08)
[2017-07-09] MEDS: Folic Acid/Vit B Comp W-C PO SCH (11:00)
[2017-07-09] MEDS: Acetaminophen 325 MG TAB PO PRN ×2 (11:00→22:32)
[2017-07-09] MEDS: Potassium Chloride 20 MEQ TAB PO SCH (11:00)
[2017-07-09] MEDS: Ferrous Sulfate 325 MG TAB PO SCH ×2 (11:00→18:00)
[2017-07-09] MEDS: Citalopram 20 MG TAB PO SCH (11:01)
[2017-07-09] MEDS: Clotrimazole 1 % Cream 30 GM TUBE TOP SCH (11:10)
[2017-07-09] MEDS: Sodium Chloride 0.9% 1,000 ML IV SCH (11:58)
[2017-07-09] MEDS: Atorvastatin Calcium 10 MG TAB PO SCH (22:09)
[2017-07-10 06:35] LABS: #Basophils 0.1 thou/uL (0.0-0.2); #Eosinphils 0.2 thou/uL (0.0-0.7); #Lymphocytes 2.9 thou/uL (1.20-3.40); #Monocytes 0.6 thou/uL (0.11-0.59); #Neutrophils 4.5 thou/uL (1.40-6.50); %Basophils 0.7 % (0.0-1.0); %Eosinophils 2.3 % (0.0-10.0); %Lymphocytes 34.6 % (21.0-51.0); %Monocytes 7.7 % (0.0-10.0); Hematocrit 26.3 % (36.0-47.0); Mean Platelet Volume 8.6 fL (7.4-10.4); Red Blood Cell (RBC) Count 2.37 mill/uL (4.20-5.40); White Blood Cell (WBC) Count 8.3 thou/uL (4.8-10.8)
--- NOTE | 2017-07-10 07:44 | PDOC.FM ---
- Subjective Subjective: CC: hip pain HPI: Patient still complaining of right hip pain and left lower leg pain. Nursing has no events overnight. - Objective MAR Reviewed: Yes Vital Signs & Weight: Vital Signs (12 hours) Temp Pulse Resp BP Pulse Ox 07/10/17 00:00 98.2 F 63 20 113/61 99 07/09/17 20:00 98.4 F 69 20 121/69 94 L Weight Admit Weight 149.595 kg Weight 149.595 kg I&O: 07/09/17 07/10/17 07/11/17 06:59 06:59 06:59 Intake Total 3770 Output Total 3300 Balance 470 Result Diagrams: 07/10/17 05:05 07/09/17 05:11 <Juan R Burton - Last Filed: 07/10/17 07:41> - Objective Vital Signs & Weight: Vital Signs (12 hours) Temp Pulse Resp BP Pulse Ox 07/10/17 07:36 98.0 F 58 L 18 129/62 98 07/10/17 00:00 98.2 F 63 20 113/61 99 Weight Admit Weight 329 lb 12.8 oz Weight 329 lb 12.8 oz I&O: 07/09/17 07/10/17 07/11/17 06:59 06:59 06:59 Intake Total 3770 1030 Output Total 3300 800 Balance 470 230 Result Diagrams: 07/10/17 05:05 07/09/17 05:11 <Jeison Beyer - Last Filed: 07/10/17 11:06> Phys Exam - Physical Examination Constitutional: NAD HEENT: sclera anicteric Respiratory: no wheezing, no rales, clear to auscultation bilateral Cardiovascular: RRR, no significant murmur Gastrointestinal: soft, non-tender, positive bowel sounds Musculoskeletal: edema present (1+, bilateral to knee, equal) Neurological: non-focal, moves all 4 limbs Skin: cap refill <2 seconds Deviation from normal: dressing applied over left tibial lesion. <Juan R Burton - Last Filed: 07/10/17 07:41> Dx/Plan (1) SIRS (systemic inflammatory response syndrome) Code(s): R65.10 - SIRS OF NON-INFECTIOUS ORIGIN W/O ACUTE ORGAN DYSFUNCTION Status: Acute Plan: Vanc/cefepime day 3. VSS. - No obvious source of infection. leg wound is healing well and has no surrounding warmth or erythema. legs consistent with stasis dermatitis. - ID consulted- concerned for possible spread of infection to Right hip. Right hip MRI schedule for today. Awaiting additional recommendations. - CXR showed no infiltrate and possible interstitial edema. repeat today - Vanc trough elevated overnight. Pharmacy dosing. (2) Acute right hip pain Code(s): M25.551 - PAIN IN RIGHT HIP Status: Acute Plan: Spoke with radiology for further evaluation of the right hip on CT abdomen and pelvis. Stated there was some degree of cortical displacement of right femoral neck but could not exclude right hip fracture. recommending MRI right hip for more complete evaluation. on exam, point of maximal tenderness is in area of greater trochanter. differential includes fracture, trochanteric bursitis, IT band syndrome, or infection. - MRI right hip. (3) Stasis dermatitis of both legs Code(s): I87.2 - VENOUS INSUFFICIENCY (CHRONIC) (PERIPHERAL) Status: Acute Plan: chronic. wound care consulted to address left leg wound. - TTE showed normal EF, unable to evaluate diastolic dysfunction. (4) Abdominal pain Code(s): R10.9 - UNSPECIFIED ABDOMINAL PAIN Status: Acute QualifierTitle: Abdominal location: generalized Qualified Code(s): R10.84 - Generalized abdominal pain Plan: complains of RLQ pain but does not wake up during examination. - CT abdomen/pelvis shows not acute changes. (5) Hypertension Code(s): I10 - ESSENTIAL (PRIMARY) HYPERTENSION Status: Chronic QualifierTitle: Hypertension type: essential hypertension Qualified Code( s): I10 - Essential (primary) hypertension Plan: monitor. home medications. (6) KATE treated with BiPAP Code(s): G47.33 - OBSTRUCTIVE SLEEP APNEA (ADULT) (PEDIATRIC) Status: Chronic (7) Obesity, morbid Code(s): E66.01 - MORBID (SEVERE) OBESITY DUE TO EXCESS CALORIES Status: Chronic <Juan R Burton - Last Filed: 07/10/17 07:41> Attending Addendum - Attending Addendum I personally evaluated the patient and discussed the management with Dr. Burton I agree with the History, Examination, Assessment and Plan documented above with any addition or exceptions noted below. Patient readmitted with presumed lower leg infection. She is complaining of pain in lateral right hip and knee. WBC back to normal. She has MRI pending of right hip. We need to make sure infection of LLE is controlled. She has a recent X-ray that we will review. If leg does not heal, consider MRI of LLE. <Jeison Beyer - Last Filed: 07/10/17 11:06>
[2017-07-10] MEDS: Furosemide 40 MG TAB PO SCH (07:46)
[2017-07-10] MEDS: Levothyroxine Sodium 125 MCG TAB PO SCH (07:46)
[2017-07-10] MEDS: Sodium Chloride 0.9% 1,000 ML IV SCH (08:08)
[2017-07-10] MEDS: Cefepime 2 GM, Syringe 2.5 ML in Sterile Water 10 ML SLOW IVP SCH ×2 (09:44→21:12)
[2017-07-10] MEDS: Ferrous Sulfate 325 MG TAB PO SCH ×2 (09:45→17:44)
[2017-07-10] MEDS: Apixaban 5 MG TAB PO SCH ×2 (09:45→21:12)
[2017-07-10] MEDS: Potassium Chloride 20 MEQ TAB PO SCH (09:45)
[2017-07-10] MEDS: Citalopram 20 MG TAB PO SCH (09:45)
[2017-07-10] MEDS: Folic Acid 1 MG TAB PO SCH (09:45)
[2017-07-10] MEDS: Folic Acid/Vit B Comp W-C PO SCH (09:45)
[2017-07-10] MEDS: Clotrimazole 1 % Cream 30 GM TUBE TOP SCH (09:46)
[2017-07-10 13:30] LABS: Vancomycin, Random 26.8 ug/mL (See Comment)
--- NOTE | 2017-07-10 17:03 | PDOC.EVN ---
Event Note - Event Note Event Note: Received a call from the nurse regarding the fact that patient went down for MRI but did not fit in MRI machine. Thus the study was unable to be performed. Radiology was called regarding recommendations for further imaging. They did not recommend CT of hip w/o contrast since a CT w/ contrast of abdomen/pelvis had already been performed and likely no further information would be provided. Radiologist recommended treating hip pain as hip fracture if there was suspicion on previous imaging and possible repeat CT in 7-10 days for reevaluation. He also recommended that we consider ortho consult as they may evaluate patient and perform surgery based on symptoms alone. However, patient has several comorbidities, does not weight bear on a daily basis, and is morbidly obese. She would be a high risk surgical patient. We will continue to monitor patient and evaluate pain.
[2017-07-10] MEDS: Atorvastatin Calcium 10 MG TAB PO SCH (21:12)
[2017-07-10] MEDS: Acetaminophen 325 MG TAB PO PRN (21:31)
[2017-07-11 01:24] LABS: Vancomycin, Random 20.8 ug/mL (See Comment)
[2017-07-11] MEDS: Levothyroxine Sodium 125 MCG TAB PO SCH (05:04)
[2017-07-11 06:26] LABS: #Basophils 0.1 thou/uL (0.0-0.2); #Eosinphils 0.2 thou/uL (0.0-0.7); #Lymphocytes 2.6 thou/uL (1.20-3.40); #Monocytes 0.9 thou/uL (0.11-0.59); #Neutrophils 2.2 thou/uL (1.40-6.50); %Basophils 0.9 % (0.0-1.0); %Eosinophils 3.6 % (0.0-10.0); %Lymphocytes 43.8 % (21.0-51.0); %Monocytes 14.6 % (0.0-10.0); Hematocrit 25.9 % (36.0-47.0); Mean Platelet Volume 8.6 fL (7.4-10.4); Red Blood Cell (RBC) Count 2.34 mill/uL (4.20-5.40); White Blood Cell (WBC) Count 5.8 thou/uL (4.8-10.8)
--- NOTE | 2017-07-11 07:24 | PDOC.FM ---
- Subjective Subjective: CC: Sleeping HPI: resting comfortably with BiPAP. Unable to perform MRI yesterday due to body habitus. - Objective Vital Signs & Weight: Vital Signs (12 hours) Temp Pulse Resp BP BP Pulse Ox 07/11/17 03:47 97.7 F 63 18 114/52 L 96 07/11/17 01:07 98.4 F 84 16 116/49 L 96 07/10/17 20:00 98.4 F 69 18 120/53 L 95 Weight Admit Weight 149.595 kg Weight 149.595 kg I&O: 07/10/17 07/11/17 07/12/17 06:59 06:59 06:59 Intake Total 3770 2850 Output Total 3300 4300 Balance 470 -1450 Result Diagrams: 07/11/17 05:15 07/09/17 05:11 <Juan R Burton W - Last Filed: 07/11/17 07:59> - Objective Vital Signs & Weight: Vital Signs (12 hours) Temp Pulse Resp BP BP Pulse Ox 07/11/17 07:50 97.6 F 63 20 130/63 97 07/11/17 03:47 97.7 F 63 18 114/52 L 96 07/11/17 01:07 98.4 F 84 16 116/49 L 96 Weight Admit Weight 329 lb 12.8 oz Weight 329 lb 12.8 oz I&O: 07/10/17 07/11/17 07/12/17 06:59 06:59 06:59 Intake Total 3770 2850 Output Total 3300 4300 Balance 470 -1450 Result Diagrams: 07/11/17 05:15 07/09/17 05:11 <Jeison Beyer - Last Filed: 07/11/17 10:11> Phys Exam - Physical Examination Constitutional: NAD HEENT: moist MMs, sclera anicteric Respiratory: no wheezing, clear to auscultation bilateral Cardiovascular: RRR, no significant murmur Gastrointestinal: soft, non-tender Musculoskeletal: edema present (1+ bilaterally ) minimal tenderness of lower legs and right knee. Neurological: non-focal, moves all 4 limbs Skin: cap refill <2 seconds Deviation from normal: unchanged LL leg lesion. <Juan R Burton - Last Filed: 07/11/17 07:59> Dx/Plan (1) SIRS (systemic inflammatory response syndrome) Code(s): R65.10 - SIRS OF NON-INFECTIOUS ORIGIN W/O ACUTE ORGAN DYSFUNCTION Status: Acute Plan: Vanc/cefepime day 4. VSS. - No obvious source of infection. leg wound is healing well and has no surrounding warmth or erythema. legs consistent with stasis dermatitis. - ID consulted- concerned for possible spread of infection to Right hip. unable to perform MRI due to body habitus. - CXR showed no infiltrate and possible interstitial edema. repeat today - Vanc per pharmacy. (2) Acute right hip pain Code(s): M25.551 - PAIN IN RIGHT HIP Status: Acute Plan: Spoke with radiology for further evaluation of the right hip on CT abdomen and pelvis. Stated there was some degree of cortical displacement of right femoral neck but could not exclude right hip fracture. recommending MRI right hip for more complete evaluation. on exam, point of maximal tenderness is in area of greater trochanter. differential includes fracture, trochanteric bursitis, IT band syndrome, or infection. - MRI right hip could not be performed. - consult ortho for evaluation (3) Stasis dermatitis of both legs Code(s): I87.2 - VENOUS INSUFFICIENCY (CHRONIC) (PERIPHERAL) Status: Acute Plan: chronic. wound care consulted to address left leg wound. - TTE showed normal EF, unable to evaluate diastolic dysfunction. (4) Hypertension Code(s): I10 - ESSENTIAL (PRIMARY) HYPERTENSION Status: Chronic QualifierTitle: Hypertension type: essential hypertension Qualified Code( s): I10 - Essential (primary) hypertension Plan: monitor. home medications. (5) KATE treated with BiPAP Code(s): G47.33 - OBSTRUCTIVE SLEEP APNEA (ADULT) (PEDIATRIC) Status: Chronic (6) Obesity, morbid Code(s): E66.01 - MORBID (SEVERE) OBESITY DUE TO EXCESS CALORIES Status: Chronic <Juan R Burton - Last Filed: 07/11/17 07:59> Attending Addendum - Attending Addendum I personally evaluated the patient and discussed the management with Dr. Burton I agree with the History, Examination, Assessment and Plan documented above with any addition or exceptions noted below. Ms. Springer's leg is less tender on the left and she is stable. We are asking ortho to see her. Primary concern is the duration of this and whether she needs additional imaging of her leg for osteomyelitis or the right hip. <Jeison Beyer - Last Filed: 07/11/17 10:11>
[2017-07-11] MEDS: Furosemide 40 MG TAB PO SCH (08:07)
[2017-07-11] MEDS: Ferrous Sulfate 325 MG TAB PO SCH ×2 (08:07→17:11)
[2017-07-11] MEDS: Potassium Chloride 20 MEQ TAB PO SCH (08:07)
[2017-07-11] MEDS: Apixaban 5 MG TAB PO SCH ×2 (08:08→19:46)
[2017-07-11] MEDS: Citalopram 20 MG TAB PO SCH (08:08)
[2017-07-11] MEDS: Folic Acid/Vit B Comp W-C PO SCH (08:08)
[2017-07-11] MEDS: Vancomycin HCl 1.25 GM in Sodium Chloride 0.9% 250 ML 250 ML IVPB SCH (08:08)
[2017-07-11] MEDS: Folic Acid 1 MG TAB PO SCH (08:08)
[2017-07-11] MEDS: Cefepime 2 GM, Syringe 2.5 ML in Sterile Water 10 ML SLOW IVP SCH ×2 (09:32→19:46)
--- NOTE | 2017-07-11 10:34 | RAD ---
FRONTAL VIEW CHEST: Date: 07/11/17 COMPARISON: 07/08/17. INDICATION: History of tachypnea, cardiomegaly, follow-up. FINDINGS: There is redemonstration of enlarged cardiac silhouette with prominence of the bilateral pulmonary va sculature. There are diffuse interstitial and alveolar opacities favoring pulmonary edema. No signifi cant effusion has developed since the recent comparison exam. Exam is otherwise stable. IMPRESSION: Radiographic findings are most consistent with decompensated CHF. Recommend clinical correlation in this regard. POS: [facility]
[2017-07-11] MEDS: Clotrimazole 1 % Cream 30 GM TUBE TOP SCH ×2 (11:07→11:53)
--- NOTE | 2017-07-11 16:51 | CON ---
DATE OF CONSULTATION: 07/11/2017 HISTORY OF PRESENT ILLNESS: Ms. Springer is a 62-year-old female who lives at home with her s tates that the last time she had any kind of trauma or fall was a month ago. States that one week ag o, she began having pain in the right knee and right lateral aspect of her thigh and into her hip. S he has some mild right groin pain. She has had chronic left lower extremity pain. Because of the pa in in the right knee, thigh and hip, she had x-rays obtained. X-rays of the right hip showed no acut e fractures. She had a CAT scan which showed no acute fracture. MRI was going to be attempted, but she was too big to get into the machine. The patient states that most of her pain is in the right kn ee and not in the right hip area. She does have infection in the left lower extremity, which she is currently being treated with IV antibiotics. PHYSICAL EXAMINATION: GENERAL: The patient's main tenderness is over the right knee. She has tenderness anteriorly medial and lateral in the right knee. She has some tenderness on the lateral aspect of the right thigh and into the lateral aspect of the hip over the greater trochanter. Minimally tender in the anterior as pect of the hip in the right groin. I am able to passively flex and extend the right knee and the ri ght hip and the majority of her pain is in the right knee. She is able to dorsiflex and plantarflex the right ankle and has good flexion, extension of her toes. IMPRESSION: Right knee, thigh and hip pain appears to be mainly from the inflammatory process, possi sophie arthritis in the right knee. I do not see any evidence of fracture of the right hip. PLAN: No surgical intervention is needed for her right hip. I would recommend anti-inflammatories, possibly steroidal and nonsteroidal anti-inflammatories.
--- NOTE | 2017-07-11 17:25 | PRG ---
DATE OF SERVICE: 07/11/2017 SUBJECTIVE: Sleepy but arousable. Little bit of dyspnea, no chest pain, no abdominal pain or diarrh ea. Voiding with the assistance of a Magana catheter. Left leg was still with some tenderness but si gnificant improvement since I initially saw her. PHYSICAL EXAMINATION: VITAL SIGNS: Essentially normal. Morbid obesity. LUNGS: With symmetric air entry. HEART: S1, S2, regular rate. ABDOMEN: Without tenderness. Left leg with dressing, hyperpigmented areas associated with stasis de rmatitis, lymphedema, tenderness but much less in the left leg. LABORATORY DATA: White cell count is down to 8.3 and 5.8, hemoglobin 7.9. Sodium 136, creatinine 0. 88. MICROBIOLOGY: Pseudomonas aeruginosa, Proteus mirabilis and Enterococcus species, currently on cefep gavin and vancomycin. ASSESSMENT AND DISCUSSION: Morbid obesity, lymphedema of lower extremities with recurrent episodes o f cellulitis, recently debrided abscess of the left anterior lower leg, neutrophilia. At this point, the cellulitis of the left leg is improving and I think we can continue with wound care only plus an timicrobial therapy for another week to 10 days, transition done to suppressive penicillin V, potass ium. I would administer Pen-Vee K suppressive therapy for a protracted period of time 250 mg twice d aily. The initial phase of treatment with IV therapy should again require another 7-10 days. No fur ther imaging needed at this point.
[2017-07-11] MEDS: Atorvastatin Calcium 10 MG TAB PO SCH (19:46)
[2017-07-12] MEDS: Furosemide 40 MG TAB PO SCH (06:14)
[2017-07-12] MEDS: Levothyroxine Sodium 125 MCG TAB PO SCH (06:14)
[2017-07-12 06:41] LABS: Hematocrit 24.5 % (36.0-47.0); Mean Platelet Volume 8.8 fL (7.4-10.4); Red Blood Cell (RBC) Count 2.22 mill/uL (4.20-5.40); White Blood Cell (WBC) Count 5.2 thou/uL (4.8-10.8)
[2017-07-12 06:43] LABS: Band 3 % (5-11); Hypochromia SLIGHT = 6-15 cells (100X) (0-5/hpf); Macrocytosis SLIGHT = 6-15 cells (100X) (0-5/hpf); Neutrophil 39 % (42-75); Target Cells SLIGHT = 2-5 cells (100X) (0-1/hpf)
[2017-07-12 07:31] LABS: Vancomycin, Trough 13.3 ug/mL
[2017-07-12] MEDS: Citalopram 20 MG TAB PO SCH (08:27)
[2017-07-12] MEDS: Vancomycin HCl 1.25 GM in Sodium Chloride 0.9% 250 ML 250 ML IVPB SCH (08:27)
[2017-07-12] MEDS: Ferrous Sulfate 325 MG TAB PO SCH ×2 (08:27→17:01)
[2017-07-12] MEDS: Potassium Chloride 20 MEQ TAB PO SCH (08:27)
[2017-07-12] MEDS: Folic Acid/Vit B Comp W-C PO SCH (08:27)
[2017-07-12] MEDS: Apixaban 5 MG TAB PO SCH ×2 (08:27→20:24)
[2017-07-12] MEDS: Folic Acid 1 MG TAB PO SCH (08:27)
[2017-07-12] MEDS: Clotrimazole 1 % Cream 30 GM TUBE TOP SCH (08:28)
[2017-07-12] MEDS: Cefepime 2 GM, Syringe 2.5 ML in Sterile Water 10 ML SLOW IVP SCH ×2 (08:45→20:24)
--- NOTE | 2017-07-12 09:23 | PDOC.FM ---
- Subjective Subjective: CC: No pain HPI: Patient resting comfortably. Eating breakfast. no concerns. 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 all questions answered. - Objective MAR Reviewed: Yes Vital Signs & Weight: Vital Signs (12 hours) Temp Pulse Resp BP BP Pulse Ox 07/12/17 07:00 98.8 F 69 18 123/57 L 97 07/12/17 05:05 98.9 F 68 16 120/60 94 L 07/12/17 00:24 99.1 F 76 18 128/53 L 94 L Weight Admit Weight 149.595 kg Weight 149.595 kg I&O: 07/11/17 07/12/17 07/13/17 06:59 06:59 06:59 Intake Total 2850 2530 Output Total 4300 4050 Balance -1450 1520 Result Diagrams: 07/12/17 05:35 07/09/17 05:11 <Juan R Burton - Last Filed: 07/12/17 11:06> - Objective Vital Signs & Weight: Vital Signs (12 hours) Temp Pulse Resp BP BP Pulse Ox 07/12/17 14:24 97.9 F 75 20 96 07/12/17 11:08 97.9 F 75 20 123/59 L 96 07/12/17 08:20 98.8 F 69 18 97 07/12/17 07:00 98.8 F 69 18 123/57 L 97 07/12/17 05:05 98.9 F 68 16 120/60 94 L Weight Admit Weight 149.595 kg Weight 149.595 kg I&O: 07/11/17 07/12/17 07/13/17 06:59 06:59 06:59 Intake Total 2850 2530 340 Output Total 4300 4050 2800 Balance -1450 -1520 -2460 Result Diagrams: 07/12/17 05:35 07/09/17 05:11 <Valeria Madrid - Last Filed: 07/12/17 15:35> Phys Exam - Physical Examination Constitutional: NAD HEENT: moist MMs, sclera anicteric Respiratory: no wheezing, clear to auscultation bilateral Cardiovascular: RRR, no significant murmur Musculoskeletal: edema present (1+ to knee bilaterally ) proximal TTP between mid-tibia and knee on left leg. No change in wound. Neurological: non-focal, moves all 4 limbs <Juan R Burton W - Last Filed: 07/12/17 11:06> Dx/Plan (1) Cellulitis of leg Code(s): L03.119 - CELLULITIS OF UNSPECIFIED PART OF LIMB Status: Acute QualifierTitle: Laterality: left Qualified Code(s): L03.116 - Cellulitis of left lower limb Plan: Vanc/cefepime day 5. VSS. - ID recommends Vanc/cefepime for 10 days followed by suppressive PCN. - CXR showed no infiltrate and possible interstitial edema. repeat today - Vanc per pharmacy. - will schedule PICC line placement for outpatient Abx. (2) Acute right hip pain Code(s): M25.551 - PAIN IN RIGHT HIP Status: Acute Plan: Spoke with radiology for further evaluation of the right hip on CT abdomen and pelvis. Stated there was some degree of cortical displacement of right femoral neck but could not exclude right hip fracture. recommending MRI right hip for more complete evaluation. on exam, point of maximal tenderness is in area of greater trochanter. differential includes fracture, trochanteric bursitis, IT band syndrome, or infection. - Ortho felt it was due to OA. No need concern for fracture (3) Stasis dermatitis of both legs Code(s): I87.2 - VENOUS INSUFFICIENCY (CHRONIC) (PERIPHERAL) Status: Acute Plan: chronic. wound care consulted to address left leg wound. - TTE showed normal EF, unable to evaluate diastolic dysfunction. - will give IV lasix 40 mg since legs still have significant swelling. (4) Hypertension Code(s): I10 - ESSENTIAL (PRIMARY) HYPERTENSION Status: Chronic QualifierTitle: Hypertension type: essential hypertension Qualified Code( s): I10 - Essential (primary) hypertension Plan: monitor. home medications. (5) KATE treated with BiPAP Code(s): G47.33 - OBSTRUCTIVE SLEEP APNEA (ADULT) (PEDIATRIC) Status: Chronic (6) Obesity, morbid Code(s): E66.01 - MORBID (SEVERE) OBESITY DUE TO EXCESS CALORIES Status: Chronic <Juan R Burton - Last Filed: 07/12/17 11:06> Attending Addendum - Attending Addendum I personally evaluated the patient and discussed the management with Dr. Burton I agree with the History, Examination, Assessment and Plan documented above with any addition or exceptions noted below- Patient sleeping but awakens easily. Afebrile VSS A/P: 1) Recurrent LLE cellulitis - Continue current IV antibiotics per ID recommendations for additional 7-[address] days[address] plan to place PICC line. 2) Hip pain- appreciate ortho recommendations; continue PT for mobilization, 3) HTN- stable; continue home meds. <Valeria Madrid - Last Filed: 07/12/17 15:35>
[2017-07-12] MEDS ORDERED: Furosemide 40 MG/4 ML VIAL SLOW IVP SCH (09:45)
--- NOTE | 2017-07-12 11:05 | PQF ---
CLINICAL DOCUMENTATION IMPROVEMENT CLARIFICATION FORM: ICD-10 Updated PLEASE DO AN ADDENDUM TO THE PROGRESS NOTE WITH ANY DOCUMENTATION UPDATES OR ADDITIONS AND CARRY THROUGH TO DC SUMMARY. THANK YOU. DATE: 07/12 ATTN: DR. TOM MURGUIA/ DR. JOSE MARIA FUNEZ Please exercise your independent, professional judgment in responding to the clarification form. Clinical indicators are provided on the bottom of this form for your review Please check appropriate box(s): HEART FAILURE: A.TYPE: [ ] Systolic / HFrEF [X ] Diastolic / HFpEF [ ] Combined Systolic / Diastolic B.ACUITY [ ] Acute[ ] Acute on Chronic [X ] Chronic C.WITH (if appropriate) [ X ] Hypertensive Heart Disease[ ] Hypertensive Heart and Kidney Disease [ ] Other diagnosis [ ] Unable to determine In addition, please specify: Present on Admission (POA): [ X ] Yes [ ] No [ ] Unable to determine No acute exacerbation at time of admission. For continuity of documentation, please document condition throughout progress notes and discharge summary. Thank You. CLINICAL INDICATORS - SIGNS / SYMPTOMS / LABS BNP: 302 (07/07) PHYSICIAN H&P DOCUMENTATION 07/07: ASSESSMENT/PLAN: 3. CONGESTIVE HEART FAILURE, SUSPECTED CXR (07/08): FINDINGS: INCREASED LINEAR & INTERSTITIAL MARKINGS BILATERALLY & EVIDENCE FOR BILATERAL VASCULAR CONGESTION CXR (07/11): FINDINGS: THERE ARE DIFFUSE INTERSTITIAL & ALVEOLAR OPACITIES FAVORING PULMONARY EDEMA. IMPRESSION: RADIOGRAPHIC FINDINGS ARE MOST CONSISTENT WITH DECOMPENSATED CHF ECHO (07/08): EF 55-60%; L ATRIUM IS MODERATELY TO SEVERELY DILATED. D/T THE VARIATIONS IN MV INFLOW PATTERN, I CANNOT DETERMINE IF DIASTOLIC DYSFX IS PRESENT. THE DILATED LA WITHOUT SEVERE MR WOULD SPEAK IN FAVOR OF DIASTOLIC DYSFX. PHYSICIAN PN DATED 07/12: 3. ...WILL GIVE IV LASIX 40 MG SINCE LEGS STILL HAVE SIGNIFICANT SWELLING BILATERAL LE 1+ EDEMA TO KNEES RISKS: MORBID OBESITY DM II HTN TREATMENTS: PO LASIX (07/07 - PRESENT) IV LASIX, ONE TIME DOSE (07/12) THANK YOU! Mamie (This form is maintained as a part of the permanent medical record) 2014 [employer]. All Rights Reserved Mamie Velasquez RN, BSN [email or web address] Office: [phone] [facility]
[2017-07-12 11:59] LABS: Prothrombin Time 17.9 SEC (12.0-14.7)
--- NOTE | 2017-07-12 17:23 | SPC ---
ULTRASOUND GUIDED LEFT UPPER EXTREMITY PICC LINE PLACEMENT: Date: 07/12/17 HISTORY: Left lower extremity cellulitis. Patient needs long-term IV antibiotics. FLUOROSCOPY: Fluoro time is 0.1 minutes with total dose of 1713 mGy*cm^2. TECHNIQUE: After informed consent was obtained, the patient was placed on the angiography table in the supine po sition. The left upper extremity was meticulously prepped and draped in the usual sterile fashion. Th e skin and subcutaneous tissues were infiltrated with buffered 1% lidocaine for local anesthesia at t he intended puncture site. Utilizing concurrent real-time ultrasound guidance, the left basilic vein was accessed utilizing micropuncture technique, and a 5 Pashto peel-away sheath was placed. The catheter was measured and cut to the appropriate length. The catheter was placed over the guidewi re with the tip positioned overlying the cavoatrial junction. The guidewire and peel-away sheath were removed. The catheter was accessed and aspirated/flushed easily. The catheter was secured to the ski n utilizing a StatLock device, and a dry, sterile dressing was placed. The patient tolerated the procedure well and without immediate complication. FINDINGS: Technically successful placement of a single lumen 5 Pashto 49 cm PICC line via the left basilic vein . The tip of the catheter overlies the cavoatrial junction. IMPRESSION: Technically successful left upper extremity PICC line placement. POS: [facility]
[2017-07-12] MEDS: Atorvastatin Calcium 10 MG TAB PO SCH (20:24)
[2017-07-13] MEDS: Levothyroxine Sodium 125 MCG TAB PO SCH (06:23)
[2017-07-13] MEDS: Furosemide 40 MG TAB PO SCH (06:23)
[2017-07-13 06:26] LABS: #Eosinphils 0.2 thou/uL (0.0-0.7); #Lymphocytes 1.9 thou/uL (1.20-3.40); #Monocytes 0.8 thou/uL (0.11-0.59); #Neutrophils 2.1 thou/uL (1.40-6.50); %Basophils 0.9 % (0.0-1.0); %Eosinophils 4.4 % (0.0-10.0); %Lymphocytes 37.9 % (21.0-51.0); %Monocytes 14.9 % (0.0-10.0); Hematocrit 24.6 % (36.0-47.0); Mean Platelet Volume 8.4 fL (7.4-10.4); Red Blood Cell (RBC) Count 2.23 mill/uL (4.20-5.40); White Blood Cell (WBC) Count 5.1 thou/uL (4.8-10.8)
[2017-07-13] MEDS: Ferrous Sulfate 325 MG TAB PO SCH ×2 (08:38→16:58)
[2017-07-13] MEDS: Apixaban 5 MG TAB PO SCH ×2 (08:38→21:24)
[2017-07-13] MEDS: Folic Acid/Vit B Comp W-C PO SCH (08:38)
[2017-07-13] MEDS: Citalopram 20 MG TAB PO SCH (08:38)
[2017-07-13] MEDS: Potassium Chloride 20 MEQ TAB PO SCH (08:38)
[2017-07-13] MEDS: Folic Acid 1 MG TAB PO SCH (08:38)
[2017-07-13] MEDS: Clotrimazole 1 % Cream 30 GM TUBE TOP SCH (08:39)
[2017-07-13] MEDS: Cefepime 2 GM, Syringe 2.5 ML in Sterile Water 10 ML SLOW IVP SCH ×2 (08:46→21:24)
[2017-07-13] MEDS: Vancomycin HCl 1.25 GM in Sodium Chloride 0.9% 250 ML 250 ML IVPB SCH (08:50)
[2017-07-13] MEDS ORDERED: Vancomycin HCl 1.5 GM in Sodium Chloride 0.9% 250 ML 300 ML IVPB SCH ×2 (09:00→10:00)
--- NOTE | 2017-07-13 09:20 | PDOC.FM ---
- Subjective Subjective: CC: tired HPI: States pain has improve. Complains of difficulty sleeping. No other concerns per nursing. - Objective Vital Signs & Weight: Vital Signs (12 hours) Temp Pulse Resp BP BP Pulse Ox 07/13/17 07:00 98.7 F 69 15 122/63 97 07/13/17 04:33 98.4 F 77 18 115/52 L 95 07/13/17 02:29 16 07/13/17 00:37 99.2 F 75 16 116/54 L 96 07/13/17 00:00 18 Weight Admit Weight 149.595 kg Weight 149.595 kg I&O: 07/12/17 07/13/17 07/14/17 06:59 06:59 06:59 Intake Total 2530 3595 Output Total 4057 9984 Balance -2021 -4219 Result Diagrams: 07/13/17 05:18 07/13/17 05:15 <Juan R Burton - Last Filed: 07/13/17 11:10> - Objective Vital Signs & Weight: Vital Signs (12 hours) Temp Pulse Resp BP Pulse Ox Pulse Ox Pulse Ox 07/13/17 16:05 99.0 F 69 14 118/55 L 93 L 07/13/17 12:39 91 L 07/13/17 12:24 98.4 F 71 15 118/56 L 98 07/13/17 09:17 96 95 07/13/17 08:38 98.7 F 69 15 97 07/13/17 07:00 98.7 F 69 15 122/63 97 Weight Admit Weight 149.595 kg Weight 149.595 kg I&O: 07/12/17 07/13/17 07/14/17 06:59 06:59 06:59 Intake Total 2530 3595 Output Total 4052 9992 Balance -4772 -7358 Result Diagrams: 07/13/17 05:18 07/13/17 11:23 <Valeria Madrid - Last Filed: 07/13/17 17:34> Phys Exam - Physical Examination Constitutional: NAD HEENT: moist MMs, sclera anicteric Respiratory: no wheezing, clear to auscultation bilateral Gastrointestinal: soft, non-tender Musculoskeletal: pulses present 1+ bilateral edema. Neurological: non-focal, moves all 4 limbs Skin: cap refill <2 seconds Deviation from normal: TTP along left leg lesion. Has improved since admission. <Juan R Burton - Last Filed: 07/13/17 11:10> Dx/Plan (1) Cellulitis of leg Code(s): L03.119 - CELLULITIS OF UNSPECIFIED PART OF LIMB Status: Acute QualifierTitle: Laterality: left Qualified Code(s): L03.116 - Cellulitis of left lower limb Plan: Vanc/cefepime day 6. VSS. PICC line placed 07/13 - ID recommends Vanc/cefepime for 10 days followed by suppressive PCN. - CXR showed no infiltrate and possible interstitial edema. repeat today - Vanc per pharmacy. (2) Acute right hip pain Code(s): M25.551 - PAIN IN RIGHT HIP Status: Acute Plan: Spoke with radiology for further evaluation of the right hip on CT abdomen and pelvis. Stated there was some degree of cortical displacement of right femoral neck but could not exclude right hip fracture. recommending MRI right hip for more complete evaluation. on exam, point of maximal tenderness is in area of greater trochanter. differential includes fracture, trochanteric bursitis, IT band syndrome, or infection. - Ortho felt it was due to OA. No need concern for fracture (3) Stasis dermatitis of both legs Code(s): I87.2 - VENOUS INSUFFICIENCY (CHRONIC) (PERIPHERAL) Status: Acute Plan: chronic. wound care consulted to address left leg wound. - TTE showed normal EF, unable to evaluate diastolic dysfunction. (4) Hypertension Code(s): I10 - ESSENTIAL (PRIMARY) HYPERTENSION Status: Chronic QualifierTitle: Hypertension type: essential hypertension Qualified Code( s): I10 - Essential (primary) hypertension Plan: monitor. home medications. (5) KATE treated with BiPAP Code(s): G47.33 - OBSTRUCTIVE SLEEP APNEA (ADULT) (PEDIATRIC) Status: Chronic (6) Obesity, morbid Code(s): E66.01 - MORBID (SEVERE) OBESITY DUE TO EXCESS CALORIES Status: Chronic <Juan R Burton - Last Filed: 07/13/17 11:10> Attending Addendum - Attending Addendum I personally evaluated the patient and discussed the management with Dr. Burton. I agree with the History, Examination, Assessment and Plan documented above with any addition or exceptions noted below- Patient without complaints excpet she is sleepy. Afebrile VSS. A/P: 1) Recurrent cellulitis- cntinue IV abx; needs IV abx through 07/21 as per ID. Will discuss suppressive therapy with ID. 2) HTN - stable; 2) KATE- continue Bipap <Valeria Madrid - Last Filed: 07/13/17 17:34>
[2017-07-13 10:36] LABS: BUN (Urea Nitrogen) 20 mg/dL (9.8-20.1); Calc. Creatinine Clearance 202 mL/min (70-130); Calcium 7.7 mg/dL (7.8-10.44); Estimated GFR-MDRD 85
[2017-07-13 10:46] LABS: Anion Gap 7 mmol/L (10-20); Chloride 93 mmol/L (98-107)
[2017-07-13 10:56] LABS: Carbon Dioxide 45 mmol/L (22-29)
[2017-07-13] MEDS ORDERED: Melatonin 3 MG TAB PO PRN (11:10)
[2017-07-13 11:52] LABS: Base Excess 20.2 mEq/L (0 (+/- 2.5)); O2 Content (venous) 10.8 VOL% (12.5-17.5); pH (venous) 7.47 (7.35-7.45)
[2017-07-13 12:12] LABS: BUN (Urea Nitrogen) 19 mg/dL (9.8-20.1); Calc. Creatinine Clearance 181 mL/min (70-130); Calcium 7.8 mg/dL (7.8-10.44); Estimated GFR-MDRD 75
[2017-07-13 12:21] LABS: Anion Gap 6 mmol/L (10-20); Chloride 91 mmol/L (98-107)
[2017-07-13 12:25] LABS: Carbon Dioxide 48 mmol/L (22-29)
[2017-07-13] MEDS ORDERED: Potassium Chloride 20 MEQ TAB PO SCH (13:30)
[2017-07-13 18:31] LABS: BUN (Urea Nitrogen) 19 mg/dL (9.8-20.1); Calc. Creatinine Clearance 186 mL/min (70-130); Estimated GFR-MDRD 78
[2017-07-13 18:41] LABS: Anion Gap 8 mmol/L (10-20); Chloride 90 mmol/L (98-107)
[2017-07-13 18:48] LABS: Carbon Dioxide 45 mmol/L (22-29)
[2017-07-13] MEDS: Atorvastatin Calcium 10 MG TAB PO SCH (21:24)
--- NOTE | 2017-07-13 22:01 | PRG ---
DATE OF SERVICE: 07/13/2017 SUBJECTIVE: Feeling better and marked reduction in pain in the left lower extremity, feels sleepy al l the time. No chest pain, no abdominal pain, no respiratory symptoms. OBJECTIVE: VITAL SIGNS: T-max 99, BP 118/55, pulse 69. GENERAL: More alert, oriented x3. LUNGS: With symmetric clear breath sounds. HEART: S1, S2. ABDOMEN: Soft with prominent panniculus left leg with marked reduction in tenderness and swelling. LABORATORY DATA: White cell count 5.2, creatinine 0.78. Microbiology with a quite resistant strain of Proteus mirabilis, Pseudomonas, and Enterococcus species, this is from a surface culture, the woun d itself appeared fresh. ASSESSMENT AND DISCUSSION: Morbid obesity, lymphedema of lower extremities, recurrent episodes of ce llulitis. The cultures obtained probably reflect superficial colonization, although it is impossible to rule out participation in the Pathophysiology of the cellulitis. Let's go ahead and the transiti oned her to oral Keflex plus Cipro for another 10 days and then suppressive Pen-Vee K.
[2017-07-13] MEDS: Acetaminophen 325 MG TAB PO PRN (23:16)
[2017-07-14] MEDS: Levothyroxine Sodium 125 MCG TAB PO SCH (05:09)
[2017-07-14] MEDS ORDERED: Cephalexin 250 MG CAP PO SCH ×3 (07:56→12:00)
[2017-07-14] MEDS ORDERED: Cipro 250 MG TAB PO SCH ×2 (07:57→20:00)
[2017-07-14] MEDS ORDERED: Ciprofloxacin 500 MG TAB PO SCH (08:00)
[2017-07-14 08:36] LABS: BUN (Urea Nitrogen) 22 mg/dL (9.8-20.1); Calc. Creatinine Clearance 196 mL/min (70-130); Calcium 8.1 mg/dL (7.8-10.44); Estimated GFR-MDRD 83
[2017-07-14 08:45] LABS: Anion Gap 8 mmol/L (10-20); Chloride 93 mmol/L (98-107); O2 Content (venous) 10.7 VOL% (12.5-17.5); pH (venous) 7.43 (7.35-7.45)
[2017-07-14 08:51] LABS: Carbon Dioxide Greater than 37 mmol/L (22-29)
[2017-07-14] MEDS: Folic Acid/Vit B Comp W-C PO SCH (09:07)
[2017-07-14] MEDS: Apixaban 5 MG TAB PO SCH ×2 (09:07→20:47)
[2017-07-14] MEDS: Potassium Chloride 20 MEQ TAB PO SCH (09:07)
[2017-07-14] MEDS: Citalopram 20 MG TAB PO SCH (09:07)
[2017-07-14] MEDS: Ferrous Sulfate 325 MG TAB PO SCH ×2 (09:07→16:53)
[2017-07-14] MEDS: Furosemide 40 MG TAB PO SCH (09:08)
[2017-07-14] MEDS: Folic Acid 1 MG TAB PO SCH (09:08)
[2017-07-14] MEDS: Clotrimazole 1 % Cream 30 GM TUBE TOP SCH (09:08)
[2017-07-14] MEDS ORDERED: Sodium Chloride 0.9% 1,000 ML IV SCH (09:15)
--- NOTE | 2017-07-14 09:18 | PDOC.FM ---
- Subjective Subjective: CC: pain in left leg HPI: Patient states she still has pain in her left leg but says it is improving. Nursing has no new complaints overnight. - Objective MAR Reviewed: Yes Vital Signs & Weight: Vital Signs (12 hours) Temp Pulse Resp BP BP Pulse Ox 07/14/17 08:00 97.7 F 61 22 H 108/56 L 90 L 07/14/17 04:13 98.1 F 67 18 118/64 89 L 07/14/17 01:20 98.4 F 67 18 116/52 L 89 L Weight Admit Weight 149.595 kg Weight 149.595 kg I&O: 07/13/17 07/14/17 07/15/17 06:59 06:59 06:59 Intake Total 3595 2220 Output Total 9925 3475 [id number] Result Diagrams: 07/13/17 05:18 07/14/17 08:14 <Juan R Burton - Last Filed: 07/14/17 10:15> - Objective Vital Signs & Weight: Vital Signs (12 hours) Temp Pulse Resp BP BP Pulse Ox 07/14/17 08:00 97.7 F 61 22 H 108/56 L 90 L 07/14/17 04:13 98.1 F 67 18 118/64 89 L 07/14/17 01:20 98.4 F 67 18 116/52 L 89 L Weight Admit Weight 149.595 kg Weight 149.595 kg I&O: 07/13/17 07/14/17 07/15/17 06:59 06:59 06:59 Intake Total 3595 2220 Output Total 9925 3475 [id number] -[id number] Result Diagrams: 07/13/17 05:18 07/14/17 08:14 <Valeria Madrid - Last Filed: 07/14/17 10:53> Phys Exam - Physical Examination Constitutional: NAD HEENT: moist MMs, sclera anicteric Respiratory: no wheezing, clear to auscultation bilateral Cardiovascular: RRR, no significant murmur Musculoskeletal: edema present (trace ) Neurological: non-focal, moves all 4 limbs Psychiatric: normal affect, A&O x 3 Skin: cap refill <2 seconds Deviation from normal: area of erythema has improved surrounding left leg lesion. less TTP <Juan R Burton - Last Filed: 07/14/17 10:15> Dx/Plan (1) Cellulitis of leg Code(s): L03.119 - CELLULITIS OF UNSPECIFIED PART OF LIMB Status: Acute QualifierTitle: Laterality: left Qualified Code(s): L03.116 - Cellulitis of left lower limb Plan: Keflex/cipro day 1 VSS. PICC line placed 07/13 - ID switched abx to keflex and cipro for 10 days followed by suppressive PCN. will follow up with Dr. Crain since patient has PCN allergy - CXR showed no infiltrate and possible interstitial edema. - d/c vanc and cefepime - needs SNF care but is resistant. since no need for IV abx can be d/c home when metabolic alkalosis improves. (2) Metabolic alkalosis with respiratory acidosis Code(s): E87.4 - MIXED DISORDER OF ACID-BASE BALANCE Status: Acute Plan: Initially thought to be due to hypoventelation due to inreased pO2 but now more likely caused by excessive diuresis due to IV lasix given 2 days ago. - will give 1L NS bolus and recheck BMP this afternoon. Baseline bicarb is mid 30s. - net fluid loss this visit is approximately 10L (3) Acute right hip pain Code(s): M25.551 - PAIN IN RIGHT HIP Status: Acute Plan: Spoke with radiology for further evaluation of the right hip on CT abdomen and pelvis. Stated there was some degree of cortical displacement of right femoral neck but could not exclude right hip fracture. recommending MRI right hip for more complete evaluation. on exam, point of maximal tenderness is in area of greater trochanter. differential includes fracture, trochanteric bursitis, IT band syndrome, or infection. - Ortho felt it was due to OA. No need concern for fracture (4) Stasis dermatitis of both legs Code(s): I87.2 - VENOUS INSUFFICIENCY (CHRONIC) (PERIPHERAL) Status: Acute Plan: chronic. wound care consulted to address left leg wound. - TTE showed normal EF, unable to evaluate diastolic dysfunction. (5) Hypertension Code(s): I10 - ESSENTIAL (PRIMARY) HYPERTENSION Status: Chronic QualifierTitle: Hypertension type: essential hypertension Qualified Code( s): I10 - Essential (primary) hypertension Plan: monitor. home medications. (6) KATE treated with BiPAP Code(s): G47.33 - OBSTRUCTIVE SLEEP APNEA (ADULT) (PEDIATRIC) Status: Chronic Plan: Encouraged patient to use BiPAP when she is sleeping. (7) Obesity, morbid Code(s): E66.01 - MORBID (SEVERE) OBESITY DUE TO EXCESS CALORIES Status: Chronic <Juan R Burton - Last Filed: 07/14/17 10:15> Attending Addendum - Attending Addendum I personally evaluated the patient and discussed the management with Dr. Burton I agree with the History, Examination, Assessment and Plan documented above with any addition or exceptions noted below- Patient feeling better. More awake this morning. Afebrile VSS A/P: 1) Recurrent cellulitis- improved. Appreciate ID recommendations. Change to po abx for additional 10 days then will need suppressive therapy. 2) HTN- stable; 3) KATE- continue cpap/bipap <Valeria Madrid - Last Filed: 07/14/17 10:53>
--- NOTE | 2017-07-14 12:22 | RAD ---
SINGLE VIEW OF THE CHEST: Comparison: 07-11-17 FINDINGS: Single view of the chest shows an enlarged but stable cardiomediastinal silhouette. There is a left u pper extremity PICC line with its tip in the superior vena cava. Increased interstitial markings are present. There is no evidence of consolidation, mass, or pleural effusions. IMPRESSION: Cardiomegaly. POS: [facility]
[2017-07-14] MEDS: Cephalexin 250 MG CAP PO SCH ×2 (13:41→20:48)
[2017-07-14 17:36] LABS: BUN (Urea Nitrogen) 21 mg/dL (9.8-20.1); Calc. Creatinine Clearance 184 mL/min (70-130); Calcium 8.2 mg/dL (7.8-10.44); Estimated GFR-MDRD 76
[2017-07-14 17:47] LABS: Chloride 91 mmol/L (98-107)
[2017-07-14 17:50] LABS: Anion Gap 10 mmol/L (10-20)
[2017-07-14 17:54] LABS: Carbon Dioxide 42 mmol/L (22-29)
[2017-07-14] MEDS ORDERED: Sodium Chloride 0.9% 500 ML IV SCH (18:30)
[2017-07-14] MEDS: Ciprofloxacin 500 MG TAB PO SCH (20:47)
[2017-07-14] MEDS: Atorvastatin Calcium 10 MG TAB PO SCH (20:47)
[2017-07-15 00:17] LABS: BUN (Urea Nitrogen) 23 mg/dL (9.8-20.1); Calc. Creatinine Clearance 186 mL/min (70-130); Calcium 7.9 mg/dL (7.8-10.44); Estimated GFR-MDRD 78
[2017-07-15 00:27] LABS: Anion Gap 9 mmol/L (10-20); Chloride 92 mmol/L (98-107)
[2017-07-15 00:33] LABS: Carbon Dioxide 42 mmol/L (22-29)
[2017-07-15 01:11] LABS: Base Excess 20.5 mEq/L (0 (+/- 2.5)); pH (venous) 7.48 (7.35-7.45)
[2017-07-15] MEDS ORDERED: Sodium Chloride 0.9% 500 ML IV SCH ×2 (02:30→10:00)
[2017-07-15] MEDS: Ciprofloxacin 500 MG TAB PO SCH ×2 (05:19→20:29)
[2017-07-15] MEDS: Levothyroxine Sodium 125 MCG TAB PO SCH (05:19)
[2017-07-15] MEDS: Cephalexin 250 MG CAP PO SCH ×3 (05:19→21:13)
[2017-07-15 07:03] LABS: BUN (Urea Nitrogen) 23 mg/dL (9.8-20.1); Calc. Creatinine Clearance 191 mL/min (70-130); Estimated GFR-MDRD 80
[2017-07-15 07:12] LABS: Anion Gap 9 mmol/L (10-20); Chloride 92 mmol/L (98-107)
[2017-07-15 07:24] LABS: Carbon Dioxide Greater than 37 mmol/L (22-29)
[2017-07-15] MEDS: Furosemide 40 MG TAB PO SCH (09:10)
[2017-07-15] MEDS: Citalopram 20 MG TAB PO SCH (09:11)
[2017-07-15] MEDS: Folic Acid 1 MG TAB PO SCH (09:11)
[2017-07-15] MEDS: Ferrous Sulfate 325 MG TAB PO SCH ×2 (09:11→16:51)
[2017-07-15] MEDS: Folic Acid/Vit B Comp W-C PO SCH (09:11)
[2017-07-15] MEDS: Potassium Chloride 20 MEQ TAB PO SCH (09:11)
[2017-07-15] MEDS: Clotrimazole 1 % Cream 30 GM TUBE TOP SCH (09:12)
[2017-07-15] MEDS: Apixaban 5 MG TAB PO SCH ×2 (09:12→20:30)
--- NOTE | 2017-07-15 09:51 | PDOC.FM ---
- Subjective Subjective: CC: Left leg pain HPI: States her left lower leg has worse pain today. no new changes overnight. Spoke to Dr. Crain regarding suppressive therapy. Agrees to switch to Keflex 250 mg BID instead of PCN due to allergy. No new events per nursing. - Objective MAR Reviewed: Yes Vital Signs & Weight: Vital Signs (12 hours) Temp Pulse Resp BP Pulse Ox 07/15/17 07:49 97.4 F L 66 22 H 118/68 93 L 07/15/17 03:07 12 Weight Admit Weight 149.595 kg Weight 150 kg I&O: 07/14/17 07/15/17 07/16/17 06:59 06:59 06:59 Intake Total 2220 1600 Output Total 3475 1700 750 Balance -1255 -100 -750 Result Diagrams: 07/13/17 05:18 07/15/17 00:52 <Juan R Burton - Last Filed: 07/15/17 10:48> - Objective Vital Signs & Weight: Vital Signs (12 hours) Temp Pulse Resp BP Pulse Ox 07/15/17 12:53 22 H 07/15/17 08:00 97.4 F L 66 22 H 07/15/17 07:49 97.4 F L 66 22 H 118/68 93 L Weight Admit Weight 149.595 kg Weight 150 kg I&O: 07/14/17 07/15/17 07/16/17 06:59 06:59 06:59 Intake Total 2220 1600 Output Total 3475 1700 1350 Balance -1255 -100 -1350 Result Diagrams: 07/13/17 05:18 07/15/17 15:41 <Valeria Madrid - Last Filed: 07/15/17 18:08> Phys Exam - Physical Examination Constitutional: NAD HEENT: moist MMs, sclera anicteric Respiratory: no wheezing, clear to auscultation bilateral Cardiovascular: RRR, no significant murmur Musculoskeletal: edema present (trace) Neurological: non-focal, moves all 4 limbs Skin: cap refill <2 seconds Deviation from normal: no changes in appearance of left leg. symmetric warmth of legs bilaterally <Juan R Burton - Last Filed: 07/15/17 10:48> Dx/Plan (1) Cellulitis of leg Code(s): L03.119 - CELLULITIS OF UNSPECIFIED PART OF LIMB Status: Acute QualifierTitle: Laterality: left Qualified Code(s): L03.116 - Cellulitis of left lower limb Plan: Keflex/cipro day 2 VSS. PICC line placed 07/13 - ID switched abx to keflex and cipro for 10 days followed by suppressive Keflex. - CXR showed no infiltrate and possible interstitial edema. - needs SNF care but is resistant. since no need for IV abx can be d/c home when metabolic alkalosis improves. (2) Metabolic alkalosis with respiratory acidosis Code(s): E87.4 - MIXED DISORDER OF ACID-BASE BALANCE Status: Acute Plan: Initially thought to be due to hypoventelation due to inreased pO2 but now more likely caused by excessive diuresis due to IV lasix given 2 days ago. - bicarb remains elevated. Received additional 1L NS overnight. Will give additional 500 mL NS and repeat BMP this afternoon. Baseline bicarb is mid 30s. - held lasix today and tomorrow. - net fluid loss this visit is approximately 10L (3) Acute right hip pain Code(s): M25.551 - PAIN IN RIGHT HIP Status: Acute Plan: Spoke with radiology for further evaluation of the right hip on CT abdomen and pelvis. Stated there was some degree of cortical displacement of right femoral neck but could not exclude right hip fracture. recommending MRI right hip for more complete evaluation. on exam, point of maximal tenderness is in area of greater trochanter. differential includes fracture, trochanteric bursitis, IT band syndrome, or infection. - Ortho felt it was due to OA. No need concern for fracture (4) Stasis dermatitis of both legs Code(s): I87.2 - VENOUS INSUFFICIENCY (CHRONIC) (PERIPHERAL) Status: Acute Plan: chronic. wound care consulted to address left leg wound. - TTE showed normal EF, unable to evaluate diastolic dysfunction. (5) Hypertension Code(s): I10 - ESSENTIAL (PRIMARY) HYPERTENSION Status: Chronic QualifierTitle: Hypertension type: essential hypertension Qualified Code( s): I10 - Essential (primary) hypertension Plan: monitor. home medications. (6) KATE treated with BiPAP Code(s): G47.33 - OBSTRUCTIVE SLEEP APNEA (ADULT) (PEDIATRIC) Status: Chronic Plan: Encouraged patient to use BiPAP when she is sleeping. (7) Obesity, morbid Code(s): E66.01 - MORBID (SEVERE) OBESITY DUE TO EXCESS CALORIES Status: Chronic <Juan R Burton - Last Filed: 07/15/17 10:48> Attending Addendum - Attending Addendum I personally evaluated the patient and discussed the management with Dr. Burton I agree with the History, Examination, Assessment and Plan documented above with any addition or exceptions noted below- Patient without complaints. Afebrile VSS A/P: 1) Recurrent cellulitis- transitioned to po abx; continue for total of 10 days then intermediate suppression with keflex. 2) HTN- stable, 3) Deconditioning- continue physical therapy <Valeria Madrid - Last Filed: 07/15/17 18:08>
[2017-07-15] MEDS: Acetaminophen 325 MG TAB PO PRN (10:49)
[2017-07-15 14:25] VITALS: BMI 58.6
[2017-07-15 16:29] LABS: BUN (Urea Nitrogen) 22 mg/dL (9.8-20.1); Calc. Creatinine Clearance 177 mL/min (70-130); Calcium 8.2 mg/dL (7.8-10.44); Estimated GFR-MDRD 73
[2017-07-15 16:38] LABS: Anion Gap 9 mmol/L (10-20); Carbon Dioxide 38 mmol/L (22-29); Chloride 94 mmol/L (98-107)
[2017-07-15] MEDS: Atorvastatin Calcium 10 MG TAB PO SCH (20:30)
[2017-07-16 04:49] LABS: BUN (Urea Nitrogen) 22 mg/dL (9.8-20.1); Calc. Creatinine Clearance 189 mL/min (70-130); Calcium 7.7 mg/dL (7.8-10.44); Estimated GFR-MDRD 79
[2017-07-16 04:58] LABS: Anion Gap 10 mmol/L (10-20); Carbon Dioxide 37 mmol/L (22-29); Chloride 96 mmol/L (98-107)
[2017-07-16] MEDS: Ciprofloxacin 500 MG TAB PO SCH ×2 (05:29→20:26)
[2017-07-16] MEDS: Levothyroxine Sodium 125 MCG TAB PO SCH (05:29)
[2017-07-16] MEDS: Cephalexin 250 MG CAP PO SCH ×3 (05:29→22:04)
[2017-07-16] MEDS: Ferrous Sulfate 325 MG TAB PO SCH ×2 (08:58→17:41)
[2017-07-16] MEDS: Folic Acid/Vit B Comp W-C PO SCH (08:58)
[2017-07-16] MEDS: Apixaban 5 MG TAB PO SCH ×2 (08:58→20:26)
[2017-07-16] MEDS: Potassium Chloride 20 MEQ TAB PO SCH (08:58)
[2017-07-16] MEDS: Folic Acid 1 MG TAB PO SCH (08:58)
[2017-07-16] MEDS: Citalopram 20 MG TAB PO SCH (08:59)
[2017-07-16] MEDS: Clotrimazole 1 % Cream 30 GM TUBE TOP SCH (08:59)
--- NOTE | 2017-07-16 09:01 | PDOC.FM ---
- Subjective Subjective: CC: No complaint HPI: Patient sleeping with BiPAP. Denies complaints. No concerns. CM states referral for HH is pending. - Objective MAR Reviewed: Yes Vital Signs & Weight: Vital Signs (12 hours) Temp Pulse Resp BP BP Pulse Ox 07/16/17 08:11 97.7 F 62 20 118/68 94 L 07/15/17 23:40 69 14 96 07/15/17 22:18 99.0 F 68 18 107/63 91 L Weight Admit Weight 149.595 kg Weight 149.958 kg I&O: 07/15/17 07/16/17 07/17/17 06:59 06:59 06:59 Intake Total 1600 1660 Output Total 1700 2650 Balance -100 -990 Result Diagrams: 07/13/17 05:18 07/16/17 03:17 <Juan R Burton - Last Filed: 07/16/17 08:59> - Objective Vital Signs & Weight: Vital Signs (12 hours) Temp Pulse Resp BP BP Pulse Ox 07/16/17 08:11 97.7 F 62 20 118/68 94 L 07/15/17 23:40 69 14 96 07/15/17 22:18 99.0 F 68 18 107/63 91 L Weight Admit Weight 149.595 kg Weight 149.958 kg I&O: 07/15/17 07/16/17 07/17/17 06:59 06:59 06:59 Intake Total 1600 1660 Output Total 1700 2650 Balance -100 -990 Result Diagrams: 07/13/17 05:18 07/16/17 03:17 <Valeria Madrid - Last Filed: 07/16/17 10:16> Phys Exam - Physical Examination Constitutional: NAD HEENT: moist MMs, sclera anicteric Respiratory: no wheezing, clear to auscultation bilateral Cardiovascular: RRR, no significant murmur Musculoskeletal: edema present (trace) Neurological: non-focal, moves all 4 limbs Psychiatric: normal affect, A&O x 3 Skin: cap refill <2 seconds Deviation from normal: left leg lesion unchanged. <Juan R Burton - Last Filed: 07/16/17 08:59> Dx/Plan (1) Cellulitis of leg Code(s): L03.119 - CELLULITIS OF UNSPECIFIED PART OF LIMB Status: Acute QualifierTitle: Laterality: left Qualified Code(s): L03.116 - Cellulitis of left lower limb Plan: Keflex/cipro day 3. VSS. PICC line placed 07/13 - ID switched abx to keflex and cipro for 10 days followed by suppressive Keflex. - CXR showed no infiltrate and possible interstitial edema. - needs SNF care but is resistant. CM working on HH (2) Metabolic alkalosis with respiratory acidosis Code(s): E87.4 - MIXED DISORDER OF ACID-BASE BALANCE Status: Acute Plan: Initially thought to be due to hypoventelation due to inreased pO2 but now more likely caused by excessive diuresis due to IV lasix. - bicarb at baseline. - Hold lasix additional day. Monitor for fluid overload. - net fluid loss this visit is approximately 10L (3) Acute right hip pain Code(s): M25.551 - PAIN IN RIGHT HIP Status: Acute Plan: Spoke with radiology for further evaluation of the right hip on CT abdomen and pelvis. Stated there was some degree of cortical displacement of right femoral neck but could not exclude right hip fracture. recommending MRI right hip for more complete evaluation. on exam, point of maximal tenderness is in area of greater trochanter. differential includes fracture, trochanteric bursitis, IT band syndrome, or infection. - Ortho felt it was due to OA. No need concern for fracture (4) Stasis dermatitis of both legs Code(s): I87.2 - VENOUS INSUFFICIENCY (CHRONIC) (PERIPHERAL) Status: Acute Plan: chronic. wound care consulted to address left leg wound. - TTE showed normal EF, unable to evaluate diastolic dysfunction. (5) Hypertension Code(s): I10 - ESSENTIAL (PRIMARY) HYPERTENSION Status: Chronic QualifierTitle: Hypertension type: essential hypertension Qualified Code( s): I10 - Essential (primary) hypertension Plan: monitor. home medications. (6) KATE treated with BiPAP Code(s): G47.33 - OBSTRUCTIVE SLEEP APNEA (ADULT) (PEDIATRIC) Status: Chronic Plan: Encouraged patient to use BiPAP when she is sleeping. (7) Obesity, morbid Code(s): E66.01 - MORBID (SEVERE) OBESITY DUE TO EXCESS CALORIES Status: Chronic Plan: CM working to get HH with PT/OT <Juan R Burton - Last Filed: 07/16/17 08:59> Attending Addendum - Attending Addendum I personally evaluated the patient and discussed the management with Dr. Burton I agree with the History, Examination, Assessment and Plan documented above with any addition or exceptions noted below- Patient without complaints. Afebrile VSS A/P: 1) Recurrent cellulitis- continue po abx followed by suppressive therapy. 2) HTN- stable. 3) D/c planning- awaiting approval for home health. 4) Deconditioning- continue PT <Valeria Madrid - Last Filed: 07/16/17 10:16>
[2017-07-16] MEDS: Acetaminophen 325 MG TAB PO PRN (11:54)
[2017-07-16] MEDS: Atorvastatin Calcium 10 MG TAB PO SCH (20:26)
[2017-07-17] MEDS: Ciprofloxacin 500 MG TAB PO SCH (05:49)
[2017-07-17] MEDS: Cephalexin 250 MG CAP PO SCH ×2 (05:50→15:02)
[2017-07-17] MEDS: Levothyroxine Sodium 125 MCG TAB PO SCH (05:50)
[2017-07-17 05:59] LABS: Anion Gap 8 mmol/L (10-20); BUN (Urea Nitrogen) 22 mg/dL (9.8-20.1); Calc. Creatinine Clearance 199 mL/min (70-130); Calcium 8.2 mg/dL (7.8-10.44); Carbon Dioxide 36 mmol/L (22-29); Chloride 98 mmol/L (98-107); Estimated GFR-MDRD 84
--- NOTE | 2017-07-17 06:53 | PDOC.FM ---
- Subjective Subjective: The patient reports that her pain in her legs has improved. She is breathing at her baseline. She is eating and drinking without difficulty. On 2L O2, which is her home oxygen requirement. - Objective MAR Reviewed: Yes Vital Signs & Weight: Vital Signs (12 hours) Temp Pulse Resp BP Pulse Ox 07/16/17 22:56 60 22 H 98 07/16/17 21:43 98.3 F 69 18 132/70 94 L 07/16/17 20:15 98.3 F 69 18 94 L Weight Admit Weight 149.595 kg Weight 149.958 kg I&O: 07/15/17 07/16/17 07/17/17 06:59 06:59 06:59 Intake Total 1600 1660 2550 Output Total 1700 2650 800 Balance -100 -990 1750 Result Diagrams: 07/13/17 05:18 07/17/17 04:25 <Mary Victor - Last Filed: 07/17/17 06:51> - Objective Vital Signs & Weight: Vital Signs (12 hours) Temp Pulse Resp BP Pulse Ox 07/17/17 08:00 98.1 F 68 18 103/58 L 93 L 07/16/17 22:56 60 22 H 98 Weight Admit Weight 149.595 kg Weight 149.958 kg I&O: 07/16/17 07/17/17 07/18/17 06:59 06:59 06:59 Intake Total 1660 2550 Output Total 2650 800 Balance -990 1750 Result Diagrams: 07/13/17 05:18 07/17/17 04:25 <Valeria Madrid - Last Filed: 07/17/17 10:54> Phys Exam - Physical Examination Constitutional: NAD breathing comfortably on 2L O2 HEENT: moist MMs, sclera anicteric Respiratory: no wheezing, clear to auscultation bilateral Cardiovascular: RRR, no significant murmur Musculoskeletal: edema present (trace edema) Neurological: non-focal, moves all 4 limbs Psychiatric: normal affect, A&O x 3 Deviation from normal: erythematous L leg lesion with associated warmth and tenderness <Mary Victor - Last Filed: 07/17/17 06:51> Dx/Plan (1) Cellulitis of leg Code(s): L03.119 - CELLULITIS OF UNSPECIFIED PART OF LIMB Status: Acute QualifierTitle: Laterality: left Qualified Code(s): L03.116 - Cellulitis of left lower limb Plan: Keflex/Cipro day -Will require chronic suppression therapy with Keflex - for wound care -PICC line placed 07/13, will be removed prior to d/c (2) Metabolic alkalosis with respiratory acidosis Code(s): E87.4 - MIXED DISORDER OF ACID-BASE BALANCE Status: Acute Plan: Likely 2/2 overdiuresis with lasix Bicarb is at patient's baseline -Lasix has been held for two days, will restart today. -Monitor for signs of fluid overload -Net fluid loss of 9L for this visit (3) Stasis dermatitis of both legs Code(s): I87.2 - VENOUS INSUFFICIENCY (CHRONIC) (PERIPHERAL) Status: Acute Plan: Chronic changes -Wound care consulted, appreciate recs -TTE showed normal systolic function, but unable to evaluate diastolic function (4) Hypertension Code(s): I10 - ESSENTIAL (PRIMARY) HYPERTENSION Status: Chronic QualifierTitle: Hypertension type: essential hypertension Qualified Code( s): I10 - Essential (primary) hypertension Plan: Has been stable, continue home meds (5) KATE treated with BiPAP Code(s): G47.33 - OBSTRUCTIVE SLEEP APNEA (ADULT) (PEDIATRIC) Status: Chronic Plan: Continue BiPAP at night (6) Obesity, morbid Code(s): E66.01 - MORBID (SEVERE) OBESITY DUE TO EXCESS CALORIES Status: Chronic Plan: Encourage weight loss - for PT/OT <Mary Victor - Last Filed: 07/17/17 06:51> Attending Addendum - Attending Addendum I personally evaluated the patient and discussed the management with Dr. Victor I agree with the History, Examination, Assessment and Plan documented above with any addition or exceptions noted below- Patient without complaints. Wants to go home. Afebrile VSS A/P: 1) Recurrent cellulitis- continue po abx then [place] agent suppression; 2) Deconditioning- plan for home health with PT. D/c home today. <Valeria Madrid - Last Filed: 07/17/17 10:54>
[2017-07-17] MEDS: Ferrous Sulfate 325 MG TAB PO SCH (07:54)
[2017-07-17] MEDS: Potassium Chloride 20 MEQ TAB PO SCH (07:54)
[2017-07-17] MEDS: Apixaban 5 MG TAB PO SCH (07:54)
[2017-07-17] MEDS: Folic Acid 1 MG TAB PO SCH (07:54)
[2017-07-17] MEDS: Furosemide 40 MG TAB PO SCH (07:54)
[2017-07-17] MEDS: Folic Acid/Vit B Comp W-C PO SCH (07:54)
[2017-07-17] MEDS: Clotrimazole 1 % Cream 30 GM TUBE TOP SCH (07:55)
[2017-07-17] MEDS: Citalopram 20 MG TAB PO SCH (07:55)
[2017-07-17 08:15] VITALS: BP 103/58; TEMP 98.1
--- NOTE | 2017-07-19 06:46 | DIS-2 ---
DATE OF ADMISSION: 07/07/2017 DATE OF DISCHARGE: 07/17/2017 RESIDENT: Juan R Burton M.D. ADMITTING ATTENDING: Cholo Karimi M.D. DISCHARGE ATTENDING: Valeria Madrid M.D. CONSULTATIONS: 1. Dr. Chun Crain, Infectious Disease. 2. Dr. Yaya Oakes, Orthopedic Surgery. PROCEDURE: PICC line placement on 07/12/17. PERTINENT LABORATORY FINDINGS: White blood cell count at the time of admission 14.6 and trended down to 5.1, hemoglobin at time of admission 9.7 and trended down to 7.6, neutrophils at the time of admi ssion 90.8% trended down to 41.9%. Procalcitonin 0.40, bicarbonate at the time of admission 28, tren ded up to 48 and down to 36 at the time of discharge. IMAGIN. CT brain, no acute intracranial processes. 2. Hip x-ray, 07/07/17, no obvious fracture. 3. Echocardiogram, unable to determine if diastolic dysfunction is present, ejection fraction of 55- 60%, left atrium moderately to severely dilated, mild aortic regurgitation, mild to moderate tricuspi d regurgitation. 4. Abdominal ultrasound on 07/08/2017 status post cholecystectomy, suboptimal assessment of right up per quadrant secondary to shadowing from bowel gas and body habitus. Negative Pires's sign. 5. CT abdomen and pelvis, no acute abnormalities on the pelvis, bibasilar infiltrates/atelectatic ch anges, cirrhosis of the liver, nonobstructing tiny left renal calculus stable, mass arising from the inferior pole of the right kidney, fat containing umbilical hernia. 6. Tibia-fibula x-ray, 07/08/17, chronic appearing findings, probable ulceration of the medial soft t issues adjacent to the left tibial shaft. 7. Chest x-ray, 07/08/17, normal cardiomegaly with bilateral vascular congestion. 8. Chest x-ray, 07/11/17, was consistent with decompensated congestive heart failure. 9. Chest x-ray, 07/14/17, showed no evidence of consolidation, mass or pleural effusions, increased interstitial markings present. PRIMARY DIAGNOSES: 1. Cellulitis of left lower extremity. 2. Contraction alkalosis secondary to over diuresis with Lasix -- resolved at time of discharge. SECONDARY DIAGNOSES: 1. Stasis dermatitis of the lower extremities. 2. Hypertension. 3. Morbid obesity. 4. Obstructive sleep apnea requiring BiPAP. 5. Paroxysmal atrial fibrillation. 6. Depression. 7. Hypothyroidism. 8. Hyperlipidemia. 9. Chronic macrocytic anemia. DISCHARGE MEDICATIONS: 1. Keflex 500 mg q.8 h. for 6 additional days. 2. Ciprofloxacin 500 mg q.12 hours for 6 additional days. 3. Cephalexin 250 mg b.i.d. to be started after completing the 500 mg q.8 hour dose of Keflex for morrissey ppressive therapy. 4. Vitamin B complex 1 tab daily. 5. Eliquis 5 mg b.i.d. 6. Aspirin 81 mg daily. 7. Protonix 40 mg daily. 8. Folic acid 1 mg daily. 9. Ibuprofen 600 mg b.i.d. 10. Simvastatin 10 mg at bedtime. 11. Citalopram 20 mg daily. 12. Iron sulfate 325 mg b.i.d. 13. Potassium chloride 20 mEq daily. 14. Synthroid 112 mcg daily. 15. Clotrimazole cream 1 gram topically daily as needed. 16. Lasix 40 mg daily. DISCONTINUED MEDICATIONS: None. HISTORY OF PRESENT ILLNESS AND HOSPITAL COURSE: Ms. Springer is a pleasant 62-year-old femal e familiar to our service who presented with a chief complaint of headache, left lower extremity pain , right hip pain and abdominal pain. She presented to the ER with a wound VAC over her left lower ex tremity from a prior I&D occurred in 06/2017. She had been seeing orthopedic surgery outpatient for management of that wound. The pain had increased over the left lower leg for the 2-3 days prior to a dmission and was extremely tender to palpation. She was started on vancomycin, cefepime and clindamy janiya while in the ER; however, the clindamycin was discontinued after one dose. She was gently fluid resuscitated. Initial laboratory evaluation showed her to have mild transaminitis prompting the acqu isition of a right upper quadrant ultrasound and CT abdomen and pelvis with contrast. Both imaging s tudies were relatively unremarkable. Dr. Chun Crain was consulted for antibiotic recommendations as the patient has struggled with mult iple bouts of cellulitis. He initially recommended continuation of IV vancomycin and cefepime for 10 days, prompting the placement of PICC line. However, his antibiotic regimen changed following the p lacement of the PICC line to oral Keflex and Cipro with chronic Keflex suppression therapy following the initial treatment. The patient had the PICC line removed prior to discharge. The patient also c omplained of right hip pain at the time of admission. Radiology overread of CT was unable to exclude fracture of the right femoral neck. MRI of the right hip was attempted to be obtained, but was unsu ccessful as the patient's body habitus prevented her from receiving MRI. Dr. Oakes from Orthopedic Surgery was consulted and felt that the hip pain was likely due to osteoarthritis and could be follo wed up outpatient. Following the initial fluid resuscitation for sepsis, the patient clinically began to appear volume o verloaded. She was given a 1 time dose of Lasix 40 IV in addition to her usual dose of oral Lasix. She responded to the IV Lasix better than anticipated and had a net intake and output of 6 liters on that day. Due to the excessive volume loss, the patient developed a contraction alkalosis and requir ed approximately 3 liters of IV fluid replacement in addition to holding her diuretic for 1 day. The patient's vital signs remained stable throughout her contraction alkalosis. weatherization operations manager was livia márquez to arrange for placement versus home health. The patient refused to go to inpatient skilled nurs ing facility and preferred to go home with home health with physical therapy, occupational therapy, a nd wound care. DISPOSITION: Arrangements were made on 07/16/17. However, the patient's family was unable to come t o the hospital and get her. Additionally, the patient had not been out of bed until 07/16/17. The brennan suggs's family was contacted on the day of discharge and stated they would be able to take the patiholli nt back to her home. She was subsequently discharged. Vital signs at time of discharge are within n ormal limits. The patient was discharged in stable condition. 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 DISCHARGE INSTRUCTIONS: 1. Location: Home with home health, physical therapy, occupational therapy and wound care. 2. Diet: Heart healthy, low sodium, fluid restricted to 2000 mL per day. 3. Activity: Physical therapy, occupational therapy, and as tolerated. FOLLOWUP INSTRUCTIONS: The patient is to follow up with her primary care physician, Dr. Jaguar johnson within 1 week of discharge. She is to follow up with Dr. Chun Crain as directed by him. Less than 30 minutes spent on discharge.
== END 2017-07-17 15:40 | disposition home health service (06) | DRG 603 ==
LOC: ERS 17:20 → SURG A 23:33 → T4-B 07-13 21:10
PROVIDERS: ADMIT Family Medicine; ATTEND Family Medicine
PROC: 5A09357 Assistance with Respiratory Ventilation, Less than 24 Consecutive Hours, Continuous Positive Airway Pressure (ICD-10-PCS; principal; 2017-07-07)
PROC: 02HV33Z Insertion of Infusion Device into Superior Vena Cava, Percutaneous Approach (ICD-10-PCS; 2017-07-12)
PROC: B548ZZA Ultrasonography of Superior Vena Cava, Guidance (ICD-10-PCS; 2017-07-12)
DX: L03.116 Cellulitis of left lower limb (principal); E87.4 Mixed disorder of acid-base balance; I11.0 Hypertensive heart disease with heart failure; R65.10 Systemic inflammatory response syndrome (SIRS) of non-infectious origin without acute organ dysfunction; Z68.43 Body mass index [BMI] 50.0-59.9, adult; D69.6 Thrombocytopenia, unspecified; I50.32 Chronic diastolic (congestive) heart failure; J98.11 Atelectasis; E87.70 Fluid overload, unspecified; E66.01 Morbid (severe) obesity due to excess calories; I48.0 Paroxysmal atrial fibrillation; I87.8 Other specified disorders of veins; D53.9 Nutritional anemia, unspecified; E78.5 Hyperlipidemia, unspecified; G47.33 Obstructive sleep apnea (adult) (pediatric); F32.9 Major depressive disorder, single episode, unspecified; E03.9 Hypothyroidism, unspecified; F17.210 Nicotine dependence, cigarettes, uncomplicated; Z88.1 Allergy status to other antibiotic agents; Z88.0 Allergy status to penicillin; Z79.01 Long term (current) use of anticoagulants; Z79.82 Long term (current) use of aspirin; D75.9 Disease of blood and blood-forming organs, unspecified; B96.4 Proteus (mirabilis) (morganii) as the cause of diseases classified elsewhere; B96.5 Pseudomonas (aeruginosa) (mallei) (pseudomallei) as the cause of diseases classified elsewhere; B95.2 Enterococcus as the cause of diseases classified elsewhere; I08.2 Rheumatic disorders of both aortic and tricuspid valves; T50.1X5A Adverse effect of loop [high-ceiling] diuretics, initial encounter; Z91.81 History of falling; E11.9 Type 2 diabetes mellitus without complications; J44.9 Chronic obstructive pulmonary disease, unspecified; Z86.14 Personal history of Methicillin resistant Staphylococcus aureus infection; K74.60 Unspecified cirrhosis of liver; N20.0 Calculus of kidney
CPT/HCPCS: 36415; 36416; 36569; 70450; 71010; 74022; 74177; 76705; 80048; 80053; 80202; 81003; 82553; 82805; 83605; 83880; 84145; 84484; 85025; 85379; 85610; 85652; 86140; 87040; 87070; 87077; 87086; 87186; 87205; 93005; 93010; 93306; 94660; 96365; 96367; 96375; A4216; C1751; G8978-GP-CK; G8979-GP-CK; G8987-GO-CL; G8988-GO-CJ; J0692; J1200; J1940; J2550; J2930; J3370; J3490; J7050

== ENCOUNTER 2017-08-01 05:35 | Inpatient (IN) | payer OTHER ==
[2017-08-01] MEDS ORDERED: Nitroglycerin 2% Ointment 1 INCH/1 GM Packet ONE (06:31)
[2017-08-01 07:15] LABS: ALT (SGPT) 27 U/L (8-55); AST (SGOT) 49 U/L (5-34); Albumin 2.6 g/dL (3.5-5.0); Alkaline Phosphatase 197 U/L (40-150); Anion Gap 12 mmol/L (10-20); BUN (Urea Nitrogen) 15 mg/dL (9.8-20.1); Bilirubin, Total 1.1 mg/dL (0.2-1.2); CK (CPK) 117 U/L (29-168); Calc. Creatinine Clearance 0 mL/min (70-130); Calcium 9.1 mg/dL (7.8-10.44); Carbon Dioxide 34 mmol/L (22-29); Chloride 97 mmol/L (98-107); Estimated GFR-MDRD 83; Globulin 5.2 g/dL (2.4-3.5); Glucose 97 mg/dL (70-105); Lipase 37 U/L (8-78); Potassium 3.7 mmol/L (3.5-5.1); Protein, Total 7.8 g/dL (6.0-8.3); Sodium 139 mmol/L (136-145)
[2017-08-01 07:25] LABS: #Basophils 0.1 thou/uL (0.0-0.2); #Eosinphils 0.2 thou/uL (0.0-0.7); #Lymphocytes 2.3 thou/uL (1.20-3.40); #Monocytes 0.8 thou/uL (0.11-0.59); #Neutrophils 2.1 thou/uL (1.40-6.50); %Basophils 1.7 % (0.0-1.0); %Eosinophils 3.2 % (0.0-10.0); %Lymphocytes 41.9 % (21.0-51.0); %Monocytes 14.3 % (0.0-10.0); %Neutrophils 38.8 % (42.0-75.0); Anisocytosis SLIGHT = 6-15 cells (100X) (0-5/hpf); Band 2 % (5-11); Eosinophils 3 % (0-10); Hemoglobin 8.5 g/dL (12.0-16.0); Lymphocytes 34 % (21-51); MDiff Complete? YES; Mean Corpuscular HGB CONC 30.2 g/dL (32.0-36.0); Mean Corpuscular Hemoglobin 33.4 pg (27.0-31.0); Metamyelocyte 4 % (0-0); Monocytes 12 % (0-10); Neutrophil 45 % (42-75); PLT Morphology Comment Appears Decreased; Platelet Count 103 thou/uL (130-400); Polychromasia SLIGHT = 2-3 cells (100X) (0-2/hpf); RBC Distribution Width 18.7 % (11.5-14.5); Red Blood Cell (RBC) Count 2.54 mill/uL (4.20-5.40); Target Cells SLIGHT = 2-5 cells (100X) (0-1/hpf); White Blood Cell (WBC) Count 5.4 thou/uL (4.8-10.8)
[2017-08-01] MEDS ORDERED: Furosemide 40 MG/4 ML VIAL ONE (07:36)
--- NOTE | 2017-08-01 08:07 | RAD ---
PORTABLE CHEST 1 VIEW: DATE: 08/01/17. TIME: 6:12 a.m. HISTORY: Dyspnea. COMPARISON: Comparison is made with the exam of 07/14/17. FINDINGS/IMPRESSION: The left upper extremity PICC line has been removed in the interim. The heart size is stable. There is pulmonary vascular congestion. No lobar consolidation, pneumothorax, or large effusions are seen . POS: H
[2017-08-01 08:21] LABS: CKMB 3.6 ng/mL (0-6.6)
[2017-08-01 09:19] LABS: Troponin I 0.024 ng/mL (< 0.028)
[2017-08-01] MEDS ORDERED: Calcium Carbonate 500 MG ChewTAB PO PRN (09:44)
[2017-08-01] MEDS ORDERED: Ondansetron ODT 4 MG TAB PO PRN (09:44)
[2017-08-01] MEDS ORDERED: Nitroglycerin 0.4 MG TAB (25 Tab Bottle) PO PRN (09:46)
[2017-08-01 11:02] LABS: Troponin I 0.024 ng/mL (< 0.028)
[2017-08-01 14:24] LABS: Troponin I 0.018 ng/mL (< 0.028)
[2017-08-01] MEDS ORDERED: Ipratropium Bromide 2.5 ml Neb NEB PRN (14:33)
[2017-08-01 15:26] LABS: Actual Bicarbonate (HCO3a) 44.7 mEq/L (22-26); Base Excess (BEa) 17.7 mEq/L (0 (+/-) 2.5); Calcium, Ionized 1.1 mmol/L (1.12-1.30); Hematocrit-ABG 28.9 % (36.0-47.0); O2 Tension (PaO2) 56.6 mmHg (80.0-100.0)
[2017-08-01 15:52] LABS: Free T4 (Free Thyroxine) 0.83 ng/dL (0.70-1.48); Thyroid Stimulating Hormone 10.3003 uIU/mL (0.35-4.94)
[2017-08-01 16:14] LABS: Analyzer IN Cardio ER; CO2 Tension 74.4 mmHg (35.0-45.0)
[2017-08-01 16:15] LABS: Puncture Site RRA
--- NOTE | 2017-08-01 17:32 | HP-2 ---
DATE OF ADMISSION: 08/01/2017 at 13:10. DATE OF SERVICE: 08/01/2017 CODE STATUS: FULL. PRIMARY CARE PHYSICIAN: Jaguar Hughes DO ATTENDING PHYSICIAN: Cholo Karimi M.D. RESIDENT: Jacobo Simmons. HISTORIAN: Patient. CHIEF COMPLAINT: Shortness of breath/chest pain. HISTORY OF PRESENT ILLNESS: A 62-year-old female with a past medical history of COPD and KATE on CPAP at night and 2 liters during the day at home and a recent diagnosis of diastolic congestive heart failure, presents with a 1-day history of shortness of breath and chest pain. She also endorses a cough and presents with altered mentation. Upon evaluating the patient, she was on a Venturi mask at 24% FiO2. She would follow commands, but not respond well to questions and required multiple attempts of asking questions to respond. In the ER, she received 80 mg of Lasix IV, a nitropatch and aspirin 324 mg. PAST MEDICAL HISTORY: 1. Hypothyroidism. 2. Morbid obesity. 3. Paroxysmal atrial fibrillation. 4. Hypertension. 5. Chronic obstructive pulmonary disease. 6. Chronic venous stasis. 7. Hyperlipidemia. 8. Congestive heart failure, diastolic. 9. Depression. 10. KATE. PAST SURGICAL HISTORY: 1. Cholecystectomy. 2. , tonsillectomy. 3. Incision and drainage of her leg. ALLERGIES: PENICILLIN, AUGMENTIN. MEDICATIONS: 1. Proventil 2 puffs q.6. hours p.r.n. 2. Nicoderm patch 14 mg q.24 hours daily. 3. Eliquis 5 mg p.o. b.i.d. 4. Simvastatin 20 mg p.o. q.a.m. 5. Furosemide 40 mg every other day. 6. Tramadol 50 mg p.o. q.12 hours p.r.n. 7. Pantoprazole 40 mg p.o. daily. 8. Tylenol No. 3 p.o. q.6 hours p.r.n. 9. Celexa 20 mg p.o. daily. 10. Iron 325 mg p.o. b.i.d. 11. Advair inhaler b.i.d. 12. Levothyroxine 112 mcg p.o. q.a.m. 13. Aspirin 81 mg p.o. daily. 14. Lisinopril 2.5 mg p.o. daily. 15. Folic acid 1 mg p.o. daily. 16. Vitamin D daily. 17. Keflex 250 mg b.i.d. FAMILY HISTORY: Mother and father have diabetes. SOCIAL HISTORY: History of tobacco abuse. Denies alcohol and drug use. REVIEW OF SYSTEMS: GENERAL: Denies fevers, chills, weight, appetite, sleep changes. HEENT: Denies vision changes or eye pain, nasal congestion, rhinorrhea, sore throat. RESPIRATORY: Endorses cough, congestion, shortness of breath. CARDIOVASCULAR: Endorses chest pain. Denies palpitations or edema. GI: Denies nausea, vomiting, diarrhea, constipation. GENITOURINARY: Denies incontinence, dysuria. SKIN: Denies rashes or lesions. MUSCULOSKELETAL: Denies pain, tenderness, stiffness. NEURO: Denies weakness, numbness. PSYCHIATRIC: Denies anxiety or depression. PHYSICAL EXAMINATION: VITAL SIGNS: Blood pressure 155/85, pulse 71, respiratory rate 18, T-max 98.3, pulse ox 97% on a Venturi mask; however, hypoxic at times to the mid-80s. GENERAL: Alert and oriented to self, in respiratory distress, obese, not appropriately interactive. EYES: Pupils equal, round, and reactive to light and accommodation. Extraocular muscles intact. ENT: Nasal mucosa and oropharynx within normal limits. NECK: Supple, no lymphadenopathy, no thyromegaly. CARDIOVASCULAR: Regular rate and rhythm. No murmurs, rubs or gallops, 2+ pedal pulses bilaterally. RESPIRATORY: Increased effort with decreased breath sounds bilaterally. Nasal and throat grunting with breath sounds. No wheezing or crackles appreciated. SKIN: Venous stasis present bilaterally. ABDOMEN: Soft, obese, nontender to palpation. Hypoactive bowel sounds. No masses or distention. EXTREMITIES: No clubbing or cyanosis, 1+ pitting edema bilaterally to the mid arce. MUSCULOSKELETAL: Structurally within normal limits. NEUROLOGIC: No focal deficits. GCS of 14. LABORATORY DATA: CBC: 5.4, 8.5, 28.1, and 103. CMP: 139, 3.7, 97, 34, 15, 0.72, 97. GFR 83. AST, ALT, alkaline phosphatase 49, 27, 197, calcium 9.1, total bilirubin 1.1, lipase 37. BNP 426, CK 117, CK-MB 3.6, troponin 0.024 x2. EKG showed normal sinus rhythm. Chest x-ray showed pulmonary vascular congestion, no lobar congestion, pneumothorax or large effusion. There is an echo done on 07/07/2017 which showed evidence of diastolic dysfunction. ASSESSMENT AND PLAN: This is a 62-year-old female with past medical history of COPD and diastolic heart failure who presents with shortness of breath and chest pain in respiratory distress requiring a Ventimask at 24% FiO2, admitted for acute on chronic hypoxic respiratory failure and chest pain. 1. Acute on chronic hypoxic respiratory failure likely secondary to chronic obstructive pulmonary disease exacerbation and diastolic congestive heart failure exacerbation. It is unclear if the patient is compliant with her CPAP at home. She does seem to be chronically hypoxic with respiratory acidosis at home requiring 2 liters of oxygen at baseline. Her bicarbonate is elevated in the ER and ABG was ordered with results pending. She will be admitted to the [facility] and placed on CPAP overnight. We will provide her with her home medications of Advair and Proventil. We will also schedule DuoNebs t.i.d. 2. Chronic obstructive pulmonary disease exacerbation. In addition to restarting her home medications of Advair and Proventil, we will start the patient on DuoNebs as stated above t.i.d. as well as methylprednisone 40 mg IV daily. She does not appear to have any signs of infection, so we will hold off on antibiotics at this time. 3. Congestive heart failure, diastolic exacerbation. We started the patient on Lasix 40 mg IV b.i.d. and we will repeat a chest x-ray in the morning. 4. For chest pain, rule out. So far, she has had two troponins drawn which were both negative. We will order a stress test for in the morning since she has never had one to rule out coronary artery disease. Her EKG showed normal sinus rhythm. 5. Chronic conditions to include hypertension, hyperlipidemia, paroxysmal atrial fibrillation, depression and hypothyroidism. We will restart her home meds. In addition to her hypothyroidism, we will order a TSH and T4. DISPOSITION AND LENGTH OF HOSPITAL STAY: 2-3 days. Symptomatic medications will be provided. History and physical exam as well as management discussed with Dr. Karimi. JLUIS
[2017-08-01] MEDS: Ferrous Sulfate 325 MG TAB PO SCH (18:34)
[2017-08-01] MEDS: Mometasone/Formoterol 120 PUFF INHALER INH SCH (18:35)
[2017-08-01] MEDS: Nicotine 14 MG PATCH TD SCH (21:01)
[2017-08-01] MEDS: Apixaban 5 MG TAB PO SCH (21:13)
[2017-08-01] MEDS: Simvastatin 20 MG TAB PO SCH (21:13)
[2017-08-02 05:22] LABS: #Basophils 0.1 thou/uL (0.0-0.2); #Eosinphils 0.1 thou/uL (0.0-0.7); #Lymphocytes 1.8 thou/uL (1.20-3.40); #Monocytes 0.5 thou/uL (0.11-0.59); #Neutrophils 1.8 thou/uL (1.40-6.50); %Basophils 1.3 % (0.0-1.0); %Monocytes 12.3 % (0.0-10.0); %Neutrophils 41.5 % (42.0-75.0); Hemoglobin 7.6 g/dL (12.0-16.0); Mean Corpuscular HGB CONC 29.6 g/dL (32.0-36.0); Mean Corpuscular Hemoglobin 32.8 pg (27.0-31.0); Mean Platelet Volume 8.7 fL (7.4-10.4); Platelet Count 88 thou/uL (130-400); RBC Distribution Width 18.7 % (11.5-14.5); Red Blood Cell (RBC) Count 2.33 mill/uL (4.20-5.40); White Blood Cell (WBC) Count 4.3 thou/uL (4.8-10.8)
[2017-08-02 05:40] LABS: BUN (Urea Nitrogen) 14 mg/dL (9.8-20.1); Calc. Creatinine Clearance 221 mL/min (70-130); Calcium 8.4 mg/dL (7.8-10.44); Estimated GFR-MDRD Greater than 90; Glucose 77 mg/dL (70-105)
[2017-08-02 05:49] LABS: Anion Gap 10 mmol/L (10-20); Chloride 96 mmol/L (98-107); Potassium 3.9 mmol/L (3.5-5.1); Sodium 143 mmol/L (136-145)
[2017-08-02] MEDS: Levothyroxine Sodium 125 MCG TAB PO SCH (05:49)
[2017-08-02 05:51] LABS: Carbon Dioxide 41 mmol/L (22-29)
[2017-08-02] MEDS ORDERED: Furosemide 40 MG/4 ML VIAL SLOW IVP SCH (06:00)
[2017-08-02] MEDS ORDERED: Levothyroxine Sodium 112 MCG TAB PO SCH (06:00)
--- NOTE | 2017-08-02 07:00 | PDOC.FM ---
- Subjective Subjective: Pt seen at bedside in NAD. SIOBHAN overnight. Pt only complains of hunger this AM. Pt denies PETERSON, CP, SOB, NVD. Pt on nasal canula. - Objective MAR Reviewed: Yes Vital Signs & Weight: Vital Signs (12 hours) Temp Pulse Resp BP Pulse Ox 08/02/17 03:42 98.1 F 57 L 18 120/58 L 98 08/02/17 00:02 63 17 100 08/02/17 00:01 63 17 98 08/01/17 20:00 97.2 F L 60 18 114/61 98 Weight Weight 151.228 kg I&O: 07/31/17 08/01/17 08/02/17 06:59 06:59 06:59 Intake Total 150 Output Total 900 Balance -750 Result Diagrams: 08/02/17 04:59 08/02/17 04:59 Phys Exam - Physical Examination Constitutional: NAD morbidly obese HEENT: sclera anicteric Respiratory: no wheezing, no rales difficult to auscultate 2/2 body habitus no obvious wheezing or crackles Cardiovascular: RRR Gastrointestinal: soft, no distention Musculoskeletal: pulses present Neurological: non-focal, moves all 4 limbs Psychiatric: A&O x 3 Deviation from normal: chronic statis dermatitis both lower extremities Dx/Plan (1) Acute on chronic respiratory failure with hypoxia and hypercapnia Code(s): J96.21 - ACUTE AND CHRONIC RESPIRATORY FAILURE WITH HYPOXIA; J96.22 - ACUTE AND CHRONIC RESPIRATORY FAILURE WITH HYPERCAPNIA Status: Acute Plan: -pt presented with SOB and atypical CP and found to be hypoxic, initially requiring ventimask -pt has long standing history of chronic hypoxic hypercapneic respiratory failure likely 2/2 end stage COPD and obesity hypoventilation -pt also known to have medical noncompliance with therapies -continue CPAP qHS and supplemental oxygen as needed -home medications continued including breathing treatments -pt also on methylprednisolone for likely COPD exacerbation -pt also being treated like mild dCHF exacerbation with IV lasix -continue to monitor fluid status closely -pt had over 3L UOP thusfar and clinically much improved from respiratory standpoint (2) Atypical chest pain Code(s): R07.89 - OTHER CHEST PAIN Status: Acute Plan: -pt presented with c/o CP likely secondary to SOB associated with COPD -pt does not appear to have had a cardiac workup since 2014 when pt presented with new onset afib -at that time, pt had normal NM stress -pt's cardiac enzymes have been trended and negative -suspicion for cardiac CP is low but with multiple risk factors, will proceed with repeat stress test to evaluate for evidence of ischemia (3) COPD (chronic obstructive pulmonary disease) Status: Acute Qualifiers: COPD type: COPD with acute exacerbation Qualified Code(s): J44.1 - Chronic obstructive pulmonary disease with (acute) exacerbation Plan: -per above (4) Diastolic CHF Code(s): I50.30 - UNSPECIFIED DIASTOLIC (CONGESTIVE) HEART FAILURE Status: Chronic Qualifiers: Congestive heart failure chronicity: acute on chronic Qualified Code(s): I50.33 - Acute on chronic diastolic (congestive) heart failure Plan: -continue home medications -IV lasix with closely monitoring of I/Os (5) Hypoventilation associated with obesity Code(s): E66.2 - MORBID (SEVERE) OBESITY WITH ALVEOLAR HYPOVENTILATION Status : Chronic (6) Obesity, morbid Code(s): E66.01 - MORBID (SEVERE) OBESITY DUE TO EXCESS CALORIES Status: Chronic (7) Paroxysmal a-fib Code(s): I48.0 - PAROXYSMAL ATRIAL FIBRILLATION Status: Chronic (8) Pancytopenia Code(s): D61.818 - OTHER PANCYTOPENIA Status: Chronic - Plan Plan: dispo: Pt stable and clinically improved from admission. Plan to attempt NM stress test this AM to evaluate ischemic cardiac disease as pt has multiple risk factors, although pt's clinical picture does not appear to be ischemic in nature. Continue to monitor.
[2017-08-02] MEDS: Mometasone/Formoterol 120 PUFF INHALER INH SCH ×2 (08:56→19:10)
[2017-08-02] MEDS: Ferrous Sulfate 325 MG TAB PO SCH ×2 (12:58→17:10)
[2017-08-02] MEDS: Lisinopril 2.5 MG TAB PO SCH (12:58)
[2017-08-02] MEDS: Citalopram 20 MG TAB PO SCH (12:59)
[2017-08-02] MEDS: Potassium Chloride 20 MEQ TAB PO SCH (12:59)
[2017-08-02] MEDS: Stress 600 With Zinc 1 TAB PO SCH (12:59)
[2017-08-02] MEDS: Apixaban 5 MG TAB PO SCH ×2 (12:59→21:26)
[2017-08-02] MEDS: Folic Acid 1 MG TAB PO SCH (12:59)
--- NOTE | 2017-08-02 13:50 | RAD ---
PORTABLE CHEST 1 VIEW: DATE: 08/02/17. TIME: 5:20 a.m. HISTORY: Pulmonary congestion. FINDINGS: Comparison is made with the exam of the previous day. The heart is prominent but stable. There is pulmonary vascular congestion. No lobar consolidation, pneumothorax, or large effusions are seen. POS: [facility]
--- NOTE | 2017-08-02 15:08 | ADD-PRG ---
DATE OF SERVICE: 08/02/2017 ADDENDUM This is an addendum to the note of Dr. Navin Herman. Ms. Springer is a 62-year-old female, who was admitted with some chest pain and shortness of breath. She has a diagnoses of COPD, obstructive sleep apnea and diastolic heart failure. She was a dmitted to the MICU and is currently undergoing a stress Myoview 2-day exam. She is also noted to [place] ve a rather significant anemia for which I can find no recent workup. We will proceed with iron stud ies. She has previously had B12 and folate level, all of which are normal. Of note is the fact she also has slight elevations of some of her LFTs as well as a CT report of cirrhosis of the liver. We need to query her about her alcohol intake. We also need to consider the possibility of autoimmune h epatitis as her viral hepatitis screens have been negative. We will proceed with an antismooth muscl e antibody, SAJAN and an antimitochondrial antibody as well as sed rate and CRP.
[2017-08-02] MEDS: traMADol HCl 50 MG TAB PO PRN (16:36)
--- NOTE | 2017-08-02 18:34 | CON ---
DATE OF CONSULTATION: 08/02/2017 SERVICE: Pulmonary Medicine. REASON FOR CONSULTATION: Respiratory failure. HISTORY OF PRESENT ILLNESS: The patient is a 62-year-old female with past medical history significant for morbid obesity, obstructive sleep apnea, and possible COPD. She has a tendency of being a little volume overloaded. She presented to the Emergency Department following 1 day history of increasing difficulty with breathing and some chest discomfort. The chest pain is actually in the right nipple, it is extraordinarily tender to palpation. Otherwise, there has been no interval change to her condition. She got a dose of Lasix. She had a significant amount of urine output (over 5 liters). She was weaned off of the BiPAP, and she is returning to her usual state of health. She denies current fevers, chills, nausea or vomiting. She has no specific sputum production. PAST MEDICAL HISTORY: 1. Chronic diastolic heart failure. 2. Morbid obesity. 3. Obstructive sleep apnea. 4. Atrial fibrillation, paroxysmal. 5. Hypertension. 6. Dyslipidemia. 7. Chronic obstructive pulmonary disease, possible. 8. Chronic stasis of the bilateral lower extremities. 9. Major depressive disorder. PAST SURGICAL HISTORY: 1. Cholecystectomy. 2. section. 3. Tonsillectomy. 4. I&D of leg. ALLERGIES: PENICILLIN, AUGMENTIN. FAMILY HISTORY: Noncontributory. SOCIAL HISTORY: Negative for alcohol, tobacco or illicit drug use. She has no exposure to chemicals, dust asbestos or tuberculosis. MEDICATIONS: List of her inpatient medications was reviewed. A couple of small updates were made. REVIEW OF SYSTEMS: General, head, ears, eyes, nose, throat, cardiovascular, respiratory, GI, , musculoskeletal, neurologic and skin is negative except as mentioned in the HPI. PHYSICAL EXAMINATION: VITAL SIGNS: Afebrile with T-max of 99.4, pulse 74, blood pressure 125/72, respirations 20, saturation 95% on 2 liters nasal cannula. GENERAL: The patient is awake, alert, in no apparent distress. LUNGS: Decent air entry. There is no prolonged expiratory phase. Crackles are present dependently. HEART: Normal rate, regular. ABDOMEN: Soft, nontender, nondistended. Bowel sounds are positive. MUSCULOSKELETAL: No cyanosis or clubbing. No pitting in the bilateral lower extremities. NEUROLOGIC: Grossly nonfocal. LABORATORY DATA: WBC 4.3, hemoglobin 7.6, platelets 88,000. A pH 7.40, pCO2 of 74, pO2 56. Basic metabolic profile is essentially unremarkable except for bicarbonate of 41. TSH was elevated at 10.0, free T4 fell within normal limits. BNP is elevated, but cardiac enzymes x3 were unremarkable. Liver function studies were essentially unremarkable. IMAGING: Chest x-ray demonstrates prominent heart. Pulmonary vascular congestion is evident. These low lung volumes are accentuating the interstitial markings. No obvious effusion is identified. Soft tissue attenuation is evident. ASSESSMENT: 1. Acute hypoxic respiratory failure. 2. Acute on chronic diastolic heart failure. 3. Nipple pain. 4. Chronic hypercapnic respiratory failure. 5. Morbid obesity. 6. Obstructive sleep apnea. PLAN: The patient will be diuresed. She has already has profound improvement in her symptoms. From my perspective, she is stable for transition to the telemetry unit. This chest pain is unlikely cardiac in origin. She has reproducible chest discomfort with palpation of the right nipple. I will perform ultrasound here. Pulmonary will continue to follow while she remains in this location, but from my perspective, she is stable for transition out of the IMCU. 70 minutes have been devoted to this patient in various activities. For at least half of this time, I was at the bedside in direct patient interaction or coordinating care with the care team. For the remainder of the time I was immediately available to the patient in the hospital unit. JLUIS
[2017-08-02] MEDS: Nicotine 14 MG PATCH TD SCH (21:26)
[2017-08-02] MEDS: Simvastatin 20 MG TAB PO SCH (21:26)
[2017-08-03] MEDS: traMADol HCl 50 MG TAB PO PRN (02:11)
[2017-08-03] MEDS: Ondansetron HCl/PF 4 MG/2 ML Vial IVP PRN (03:39)
[2017-08-03 04:58] LABS: #Lymphocytes 0.9 thou/uL (1.20-3.40); #Monocytes 0.4 thou/uL (0.11-0.59); #Neutrophils 2.9 thou/uL (1.40-6.50); %Basophils 0.3 % (0.0-1.0); %Eosinophils 0.1 % (0.0-10.0); %Lymphocytes 22.3 % (21.0-51.0); %Monocytes 9.7 % (0.0-10.0); %Neutrophils 67.7 % (42.0-75.0); BUN (Urea Nitrogen) 19 mg/dL (9.8-20.1); Calc. Creatinine Clearance 190 mL/min (70-130); Calcium 8.6 mg/dL (7.8-10.44); Estimated GFR-MDRD 79; Glucose 103 mg/dL (70-105); Hemoglobin 7.9 g/dL (12.0-16.0); Mean Corpuscular Hemoglobin 33.4 pg (27.0-31.0); Platelet Count 94 thou/uL (130-400); RBC Distribution Width 18.4 % (11.5-14.5); Red Blood Cell (RBC) Count 2.38 mill/uL (4.20-5.40); White Blood Cell (WBC) Count 4.2 thou/uL (4.8-10.8)
[2017-08-03 05:08] LABS: Anion Gap 10 mmol/L (10-20); Carbon Dioxide 38 mmol/L (22-29); Chloride 93 mmol/L (98-107); Potassium 3.8 mmol/L (3.5-5.1); Sodium 137 mmol/L (136-145)
[2017-08-03] MEDS: Furosemide 20 MG/2 ML VIAL SLOW IVP SCH (05:54)
[2017-08-03] MEDS: Levothyroxine Sodium 125 MCG TAB PO SCH (05:54)
[2017-08-03] MEDS ORDERED: Furosemide 40 MG/4 ML VIAL SLOW IVP SCH (06:00)
--- NOTE | 2017-08-03 07:36 | PDOC.FM ---
- Subjective Subjective: Pt seen at bedside in NAD. SIOBHAN overnight. Pt still endorses some right breast pain. Tolerating diet. Pt denies CP, SOB, NVD. - Objective MAR Reviewed: Yes Vital Signs & Weight: Vital Signs (12 hours) Temp Pulse Resp BP Pulse Ox 08/03/17 04:04 98.3 F 75 19 102/48 L 100 08/03/17 00:17 69 19 100 08/03/17 00:16 68 28 H 100 08/03/17 00:00 99.2 F 77 20 103/53 L 100 08/02/17 20:00 99.1 F 78 18 101/58 L 98 08/02/17 19:48 99.1 F 78 18 98 Weight Admit Weight 151.046 kg Weight 148.778 kg I&O: 08/02/17 08/03/17 08/04/17 06:59 06:59 06:59 Intake Total 150 3664 Output Total 900 6850 Balance -531 -0825 Result Diagrams: 08/03/17 04:01 08/03/17 04:01 Phys Exam - Physical Examination Constitutional: NAD morbidly obese HEENT: sclera anicteric Respiratory: no wheezing, no rales difficult to auscultate 2/2 body habitus no obvious wheezing or crackles Cardiovascular: RRR Gastrointestinal: soft, no distention Musculoskeletal: pulses present Neurological: non-focal, moves all 4 limbs Psychiatric: A&O x 3 Skin: cap refill <2 seconds Deviation from normal: chronic stasis dermatitis both lower ext Dx/Plan (1) Acute on chronic respiratory failure with hypoxia and hypercapnia Code(s): J96.21 - ACUTE AND CHRONIC RESPIRATORY FAILURE WITH HYPOXIA; J96.22 - ACUTE AND CHRONIC RESPIRATORY FAILURE WITH HYPERCAPNIA Status: Acute Plan: -pt presented with SOB and atypical CP and found to be hypoxic, initially requiring ventimask -pt has long standing history of chronic hypoxic hypercapneic respiratory failure likely 2/2 end stage COPD and obesity hypoventilation -pt also known to have medical noncompliance with therapies -continue CPAP qHS and supplemental oxygen as needed -home medications continued including breathing treatments -pt also on methylprednisolone for likely COPD exacerbation -pt also being treated like mild dCHF exacerbation with IV lasix -continue to monitor fluid status closely -pt had nearly 7L UOP thusfar and clinically much improved from respiratory standpoint (2) Atypical chest pain Code(s): R07.89 - OTHER CHEST PAIN Status: Acute Plan: -pt presented with c/o CP likely secondary to SOB associated with COPD -pt does not appear to have had a cardiac workup since 2014 when pt presented with new onset afib -at that time, pt had normal NM stress -pt's cardiac enzymes have been trended and negative -suspicion for cardiac CP is low but with multiple risk factors, will proceed with repeat stress test to evaluate for evidence of ischemia -part 2 of stress test today (3) Pancytopenia Code(s): D61.818 - OTHER PANCYTOPENIA Status: Chronic Plan: -pt has a hx of pancytopenia and previous CT abd which showed evidence of cirrhosis -viral hepatitis panels have been negative -with elevated alk phos, will work up autoimmune hepatitis -pt can f/u outpt for results (4) Pain of right breast Code(s): N64.4 - MASTODYNIA Status: Acute Plan: -pt's CP seems to be more related to breast pain -last mammogram in 2014 normal -US right breast pending (5) COPD (chronic obstructive pulmonary disease) Status: Acute Qualifiers: COPD type: COPD with acute exacerbation Qualified Code(s): J44.1 - Chronic obstructive pulmonary disease with (acute) exacerbation Plan: -per above (6) Diastolic CHF Code(s): I50.30 - UNSPECIFIED DIASTOLIC (CONGESTIVE) HEART FAILURE Status: Chronic Qualifiers: Congestive heart failure chronicity: acute on chronic Qualified Code(s): I50.33 - Acute on chronic diastolic (congestive) heart failure Plan: -continue home medications -IV lasix with closely monitoring of I/Os (7) Hypoventilation associated with obesity Code(s): E66.2 - MORBID (SEVERE) OBESITY WITH ALVEOLAR HYPOVENTILATION Status : Chronic (8) Obesity, morbid Code(s): E66.01 - MORBID (SEVERE) OBESITY DUE TO EXCESS CALORIES Status: Chronic (9) Paroxysmal a-fib Code(s): I48.0 - PAROXYSMAL ATRIAL FIBRILLATION Status: Chronic - Plan Plan: dispo: Pt stable and clinically improved. Second portion of NM stress test this AM. Workup for mastodynia and pancytopenia pending. If stress test normal, pt can be discharged with outpt follow up for pending work up. Continue to monitor.
[2017-08-03] MEDS: Mometasone/Formoterol 120 PUFF INHALER INH SCH ×2 (08:53→19:04)
--- NOTE | 2017-08-03 09:35 | ADD-PRG ---
DATE OF SERVICE: 08/03/2017 This is an addendum to the note of Dr. Navin Herman. Ms. Springer is lying flat, waiting on her breast ultrasound. She is in no distress. We are in the m idst of a workup for possible autoimmune hepatitis given that she has cirrhosis of unknown etiology. She also has an anemia which in reviewing her records, goes back several years. This is with likely multifactorial related to multiple hospital admissions and blood draws. However, she perhaps also h as an early myeloproliferative disorder and I would recommend outpatient Hematology consultation to [facility] after her discharge. Her acute problems now seems under control. Her breathing is back to baseline and she will likely be able to be discharged later today for close followup of he r multiple problems.
[2017-08-03] MEDS: Stress 600 With Zinc 1 TAB PO SCH (10:07)
[2017-08-03] MEDS: Lisinopril 2.5 MG TAB PO SCH (10:08)
[2017-08-03] MEDS: Ferrous Sulfate 325 MG TAB PO SCH ×2 (10:09→17:40)
[2017-08-03] MEDS: Potassium Chloride 20 MEQ TAB PO SCH (10:09)
[2017-08-03] MEDS: Folic Acid 1 MG TAB PO SCH (10:09)
[2017-08-03] MEDS: Citalopram 20 MG TAB PO SCH (10:09)
[2017-08-03] MEDS: predniSONE 20 MG TAB PO SCH (10:09)
[2017-08-03] MEDS: Apixaban 5 MG TAB PO SCH ×2 (10:10→20:26)
--- NOTE | 2017-08-03 10:29 | NM ---
CARDIAC PERFUSION EVALUATION: COMPARISON: Prior study dated 07/24/2015. Reference made to the stress EKG portion of the exam. Correlate for r esults through the Division of Cardiology. INDICATIONS: A 62-year-old female with chest pain. RADIOPHARMACEUTICAL: Technetium 99m sestamibi 29.4 and 29.2 millicuries IV, administered at stress and rest. FINDINGS: There is a persistent area of reduced radiotracer involving the anteroseptal aspect of the apex. The re is a diminished degree of contractility within this region. Wall motion is demonstrated by gated imaging. There is a slight prominence of chamber size. Calculated LVEF is 59%. IMPRESSION: 1. Persistent small region of fixed defect at the anteroseptal aspect of the apex with associated di minished wall thickening. This could relate to an area of scar or, alternatively, physiologic apical thinning. No significant reversibility in this region to indicate an area of ischemia. Recommend c orrelation with the stress electrocardiogram portion of the exam. 2. Mild prominence of the left ventricular chamber size, which may be further assessed with echocard iogram. POS: HYACINTH
--- NOTE | 2017-08-03 10:48 | ULT ---
DIAGNOSTIC RIGHT BREAST ULTRASOUND: Clinical history: Pain. Areolar region right breast. FINDINGS: Real-time sonographic evaluation of the right breast performed. Upon inspection of the breast in the area of concern at the periareolar region of the right breast, there is erythema of the skin. Sonogra phic evaluation does reveal skin thickening as well as interspersed edema. No drainable abscess or di screte mass identified at the site of pain. IMPRESSION: Localized sonographic imaging of right breast reveals skin thickening and mild edema. This could rela yulisa to cellulitis in the correct clinical context. Note is made that inflammatory breast malignancy c annot be excluded. Therefore, recommend complete course of appropriate antibiotic therapy as well as sonographic imaging follow up to confirm resolution of findings. BIRADS 0 - incomplete evaluation. Short-term follow up right breast imaging and clinical assessment following completion of treatment r egimen is necessary. POS: HYACINTH
--- NOTE | 2017-08-03 12:30 | DIS-2 ---
DATE OF ADMISSION: 08/01/2017 DATE OF DISCHARGE: 08/03/2017. RESIDENT: Navin Herman M.D. ADMITTING ATTENDING: Dr. hColo Karimi. DISCHARGE ATTENDING: Dr. Pankaj Kam. CONSULT: Pulmonology, Dr. Connor. PROCEDURES: 1. Chest x-ray performed on 08/01/2017 showed pulmonary vascular congestion with no lobar consolidat ion, pneumothoraces or large effusion seen. 2. Nuclear medicine stress test performed on 08/19/2017 showed a persistent small region of anterose ptal aspect of the apex with diminished wall thickening likely scar or physiologic thinning; however, no areas of ischemia. 3. Right breast ultrasound performed on 08/03/2017 showed skin thickening and mild edema related to cellulitis. PRIMARY DIAGNOSES: 1. Acute on chronic hypoxic hypercapnic respiratory failure likely secondary to chronic obstructive pulmonary disease and diastolic congestive heart failure exacerbation, resolved. 2. Chronic obstructive pulmonary disease exacerbation, resolved. 3. Heart failure with preserved ejection fraction exacerbation, resolved. 4. Atypical chest pain secondary to right breast pain due to sonographic cellulitis. 5. Hypothyroidism. 6. Hypertension. 7. Hyperlipidemia. 8. Paroxysmal atrial fibrillation. 9. Depression. 10. Macrocytic anemia, possibly secondary to cirrhosis. 11. Chronic venous stasis. 12. Morbid obesity. DISCHARGE MEDICATIONS: 1. Clindamycin 300 mg p.o. t.i.d. for 7 days. 2. Prednisone 20 mg p.o. q.a.m. with meals for 2 more days. 3. Lasix 40 mg p.o. daily. 4. Levothyroxine 112 mcg p.o. daily. 5. Potassium chloride 20 mEq p.o. daily. 6. Ferrous sulfate 325 mg p.o. b.i.d. with meals. 7. Citalopram 20 mg p.o. daily. 8. Simvastatin 20 mg p.o. at bedtime. 9. Pantoprazole 40 mg p.o. daily. 10. Aspirin 81 mg p.o. daily. 11. Apixaban 5 mg p.o. b.i.d. 12. Vitamin B12 complex vitamin. HISTORY OF PRESENT ILLNESS AND HOSPITAL COURSE: The patient is a 62-year-[facility] with atypical complaints of chest pain, later found to be truly associated with javi st pain secondary to cellulitis discovered on ultrasound. The patient, however, on presentation had oxygen saturations in the 80s and was found to have an acute on chronic hypoxic hypercapnic respirato ry failure secondary to a mixed COPD and heart failure exacerbation. The patient was treated with br eathing treatments, steroids, and IV diuresis. Over the first 24-36 hours, the patient diuresed near ly 7 liters. With these changes in her fluid status, the patient felt extremely better and closer to her baseline, only requiring her home level of oxygen at 2 liters via nasal cannula. The patient's other chronic medications were continued throughout her hospital stay. Due to the patient complainin g of atypical chest pain and not having had a cardiac workup in some time, decision was made to get a nuclear medicine stress test. The patient, however, further delineated that her pain was mainly tie d to her right breast. An ultrasound of the right breast showed the above findings. There was minim al erythema on exam; however, with the above findings and her complaints of extreme pain, the patient is being treated for cellulitis of the breast. The patient will need further followup with ultrasou nd of the breast after her antibiotic treatments. The patient's hospital course was otherwise uncomp licated. DISPOSITION: Stable. DISCHARGE INSTRUCTIONS: 1. Location: Home. 2. Diet: Diabetic, heart healthy and low sodium diet. 3. Activity: As tolerated. 4. Followup: The patient was instructed to follow up with her primary care physician, Dr. Jaguar Hughes within 1-2 weeks of discharge. Follow up on chronic medical conditions and be set up for a [facility] ultrasound.
[2017-08-03 13:01] LABS: Actual Bicarbonate (HCO3a) 45.4 mEq/L (22-26); Base Excess (BEa) 14.8 mEq/L (0 (+/-) 2.5); CO2 Tension 116.2 mmHg (35.0-45.0); Calcium, Ionized 1.2 mmol/L (1.12-1.30); Hematocrit-ABG 32.6 % (36.0-47.0); Hemoglobin (Hb) 8.6 g/dL (12.0-16.0); O2 Tension (PaO2) 152.4 mmHg (80.0-100.0); pH, Arterial 7.21 (7.35-7.45)
[2017-08-03 13:02] LABS: Puncture Site RRA
[2017-08-03 14:14] LABS: Alpha-1-Antitrypsin 132 mg/dL (90-200)
--- NOTE | 2017-08-03 20:17 | PRG ---
DATE OF SERVICE: 08/03/2017 SUBJECTIVE: Gian apparently was discharged today. Dialysis scheduled to see her in follow up wit h Dr. Quiñones's consultation yesterday. When I arrived to make rounds on her, she was obtunded. Res piratory therapist, Terry was placing BiPAP on her. Blood gas had been done, which showed pH of 7.21, pCO2 of 116, pO2 of 152. FIO2 was turned down to r oom air on BiPAP until her sats dropped into the low 80s, then we have increased her FIO2 with a goal sat of 85-88 ideally. Her lungs were clear and distant. Heart regular rhythm. Abdomen is soft. I had a long discussion with her son and her . Apparently two years ago, she was living in a long term. She had CPAP that had been prescribed by prior physician, prior to her moving into the long term. The long term asked them to bring her CPAP to the long term and then according to the son, the long term lost her CPAP, so she has not had that since then. Recently, she has be en living at home with her family. As I have explained to the family, she clearly cannot live without CPAP and actually would be a good candidate for a tracheostomy, unless we can document she is compliant with CPAP. Her son says that s he was compliant with CPAP and the reason she went into the long term was just that she could not take care of herself during the day at home. Her electrolytes are remarkable only for an elevated bicarbonate as expected today. CBC was normal. White count 4.2, hemoglobin is 7.9, and platelets of 94,000. IMPRESSION: 1. Respiratory failure, acute on chronic. 2. Untreated sleep apnea, which probably is the biggest problem. She is facing from longevity stand point. 3. History of hypothyroidism. 4. History of diastolic heart failure. 5. History of hypertension. 6. History of atrial fibrillation. 7. Extreme deconditioning. Family said she walks "a little" but not much. She could carry a diagnosis of obstructive lung disease, but I am not sure how the diagnosis was made , she does have a history of smoking. She is also relatively pancytopenic, etiology is not clear to me. She certainly is set up for having steatohepatitis or cirrhosis secondary to steatohepatitis, which might lead to pancytopenia. She will remain in the intermediate care unit if she awakens with her BiPAP and there is no reason to move out of the critical care unit, but she declines and obviously she will need critical care monit oring. At this point in time, she looked tired at the time of this dictation when last examined, she looked comfortable on BiPAP, so I think for now we can avoid intubation. Hopefully with some sleep in some time, we will see significant improvement in her functional status. Critical care time 35 minutes, which includes multiple exams today as well as review of records in co nferring with the nurses on the unit.
[2017-08-03] MEDS: Simvastatin 20 MG TAB PO SCH (20:26)
[2017-08-03] MEDS: Nicotine 14 MG PATCH TD SCH (20:27)
[2017-08-04 04:17] LABS: BUN (Urea Nitrogen) 22 mg/dL (9.8-20.1); Calc. Creatinine Clearance 131 mL/min (70-130); Calcium 8.3 mg/dL (7.8-10.44); Estimated GFR-MDRD 52; Glucose 92 mg/dL (70-105)
[2017-08-04 04:26] LABS: #Lymphocytes 1.9 thou/uL (1.20-3.40); #Monocytes 0.8 thou/uL (0.11-0.59); #Neutrophils 3.4 thou/uL (1.40-6.50); %Basophils 0.5 % (0.0-1.0); %Eosinophils 0.7 % (0.0-10.0); %Lymphocytes 30.7 % (21.0-51.0); %Monocytes 12.3 % (0.0-10.0); %Neutrophils 55.7 % (42.0-75.0); Anion Gap 11 mmol/L (10-20); Carbon Dioxide 39 mmol/L (22-29); Chloride 93 mmol/L (98-107); Mean Corpuscular HGB CONC 29.5 g/dL (32.0-36.0); Mean Corpuscular Hemoglobin 33.2 pg (27.0-31.0); Mean Platelet Volume 8.9 fL (7.4-10.4); Platelet Count 100 thou/uL (130-400); Potassium 4.7 mmol/L (3.5-5.1); RBC Distribution Width 18.2 % (11.5-14.5); Red Blood Cell (RBC) Count 2.39 mill/uL (4.20-5.40); Sodium 138 mmol/L (136-145); White Blood Cell (WBC) Count 6.1 thou/uL (4.8-10.8)
[2017-08-04] MEDS: Levothyroxine Sodium 125 MCG TAB PO SCH (06:05)
[2017-08-04] MEDS: Furosemide 20 MG/2 ML VIAL SLOW IVP SCH (06:05)
[2017-08-04] MEDS: Mometasone/Formoterol 120 PUFF INHALER INH SCH (07:22)
[2017-08-04 07:35] LABS: Calcium, Ionized 1.1 mmol/L (1.12-1.30); Hematocrit-ABG 29.4 % (36.0-47.0); Hemoglobin (Hb) 7.3 g/dL (12.0-16.0); O2 Tension (PaO2) 70.8 mmHg (80.0-100.0); pH, Arterial 7.27 (7.35-7.45)
--- NOTE | 2017-08-04 07:43 | PRG ---
DATE OF SERVICE: 08/04/2017 SUBJECTIVE: Ms. Springer is more alert today. OBJECTIVE: VITAL SIGNS: She is afebrile, heart rate is 70, respiratory rate is 19, oximetry is 94, blood pressu re 97/40. LUNGS: Clear. HEART: Regular rhythm. ABDOMEN: Soft. IMPRESSION: Respiratory failure secondary to untreated sleep apnea. PLAN: Continue BiPAP. Check blood gases this morning. We will make an additional assessment to det ermine whether or not we can discontinue BiPAP during the day.
[2017-08-04] MEDS: traMADol HCl 50 MG TAB PO PRN (07:54)
[2017-08-04] MEDS: Ferrous Sulfate 325 MG TAB PO SCH (07:54)
[2017-08-04] MEDS: Citalopram 20 MG TAB PO SCH (07:54)
[2017-08-04] MEDS: Folic Acid 1 MG TAB PO SCH (07:55)
[2017-08-04] MEDS: Potassium Chloride 20 MEQ TAB PO SCH (07:55)
[2017-08-04] MEDS: Lisinopril 2.5 MG TAB PO SCH (07:55)
[2017-08-04] MEDS: Stress 600 With Zinc 1 TAB PO SCH (07:55)
[2017-08-04] MEDS: Apixaban 5 MG TAB PO SCH (07:55)
[2017-08-04] MEDS: predniSONE 20 MG TAB PO SCH (07:55)
--- NOTE | 2017-08-04 07:58 | PDOC.FM ---
- Subjective Subjective: Pt seen at bedside in some respiratory distress prior to transfer to CCU. Pt decompensated prior to discharge on 08/03 and required bipap. Pt did complain of some shortness of breath this AM. - Objective MAR Reviewed: Yes Vital Signs & Weight: Vital Signs (12 hours) Temp Pulse Resp BP BP Pulse Ox 08/04/17 07:55 84 107/41 L 08/04/17 07:29 98.8 F 69 20 100 08/04/17 07:22 69 100 08/04/17 03:54 98.8 F 70 19 97/40 L 94 L 08/04/17 01:58 70 16 94 L 08/04/17 01:56 69 16 94 L 08/03/17 23:32 98.8 F 67 18 98/37 L 98 Weight Admit Weight 151.046 kg Weight 145.83 kg I&O: 08/03/17 08/04/17 08/05/17 06:59 06:59 06:59 Intake Total 3664 1732 Output Total 6850 1125 Balance -7776 607 Result Diagrams: 08/04/17 03:49 08/04/17 03:49 Phys Exam - Physical Examination mild respiratory distress Respiratory: clear to auscultation bilateral Cardiovascular: RRR Gastrointestinal: soft, non-tender Neurological: moves all 4 limbs Psychiatric: A&O x 3 Skin: cap refill <2 seconds Deviation from normal: chronic stasis derm both lower ext Dx/Plan (1) Acute on chronic respiratory failure with hypoxia and hypercapnia Code(s): J96.21 - ACUTE AND CHRONIC RESPIRATORY FAILURE WITH HYPOXIA; J96.22 - ACUTE AND CHRONIC RESPIRATORY FAILURE WITH HYPERCAPNIA Status: Acute Plan: -pt presented with SOB and atypical CP and found to be hypoxic, initially requiring ventimask -pt has long standing history of chronic hypoxic hypercapneic respiratory failure likely 2/2 obesity hypoventilation -pt also known to have medical noncompliance with therapies -continue CPAP qHS and supplemental oxygen as needed -pt was stable for discharge on 08/03 AM, however, became more obtunded and required bipap -ABG at that time revealed acute on chronic resp acidosis with hypoxia and hypercapnia -pulmonology on board, recs greatly appreciated. per note, family discussion for possibility of tach as pt is not compliant with bipap at home -ABG 7./70 -repeat ABG this AM showed continued respiratory acidosis with hypoxia and hypercapnia. Pulmonology discussed with pt and family and decision was made to proceed with intubation and mechanical ventilation -pt will likely have tracheostomy in 1-2 days after anticoagulation adequately held -pt on sedation protocol -continue to monitor mechanical ventilation (2) Atypical chest pain Code(s): R07.89 - OTHER CHEST PAIN Status: Acute Plan: -pt presented with c/o CP likely secondary to SOB associated with COPD -pt does not appear to have had a cardiac workup since 2014 when pt presented with new onset afib -at that time, pt had normal NM stress -pt's cardiac enzymes have been trended and negative -suspicion for cardiac CP is low but with multiple risk factors, will proceed with repeat stress test to evaluate for evidence of ischemia -stress test showed no evidence of ischemia -CP likely secondary to breast pain (3) Pancytopenia Code(s): D61.818 - OTHER PANCYTOPENIA Status: Chronic Plan: -pt has a hx of pancytopenia and previous CT abd which showed evidence of cirrhosis -viral hepatitis panels have been negative -with elevated alk phos, will work up autoimmune hepatitis -pt can f/u outpt for results (4) Pain of right breast Code(s): N64.4 - MASTODYNIA Status: Acute Plan: -pt's CP seems to be more related to breast pain -last mammogram in 2014 normal -US right breast showed findings consistent with soft tissue swelling and cellulitis (5) Diastolic CHF Code(s): I50.30 - UNSPECIFIED DIASTOLIC (CONGESTIVE) HEART FAILURE Status: Chronic Qualifiers: Congestive heart failure chronicity: acute on chronic Qualified Code(s): I50.33 - Acute on chronic diastolic (congestive) heart failure Plan: -continue home medications -IV lasix with closely monitoring of I/Os (6) Hypoventilation associated with obesity Code(s): E66.2 - MORBID (SEVERE) OBESITY WITH ALVEOLAR HYPOVENTILATION Status : Chronic (7) Obesity, morbid Code(s): E66.01 - MORBID (SEVERE) OBESITY DUE TO EXCESS CALORIES Status: Chronic (8) Paroxysmal a-fib Code(s): I48.0 - PAROXYSMAL ATRIAL FIBRILLATION Status: Chronic - Plan Plan: dispo: Pt had been worsening with respiratory acidosis. Decision was made to intubate and ultimately likely transition to tracheostomy. Pulmonology recs greatly appreciated. Continue to monitor closely.
[2017-08-04 08:16] LABS: CO2 Tension 100.8 mmHg (35.0-45.0)
[2017-08-04 08:17] LABS: Puncture Site RR
[2017-08-04 09:14] LABS: Antinuclear AB Negative (Negative)
[2017-08-04] MEDS ORDERED: Midazolam HCl 2 mg/2 ml Vial ONE (09:18)
[2017-08-04] MEDS ORDERED: Propofol 1,000 MG/100 ML VIAL IV ONE ×2 (09:19→09:20)
[2017-08-04] MEDS ORDERED: Diprivan 0 ML ONE (09:19)
[2017-08-04] MEDS ORDERED: Sedation Protocol FS ONE (09:32)
[2017-08-04] MEDS ORDERED: Morphine 2 MG/ML SYRINGE SLOW IVP PRN (09:40)
[2017-08-04] MEDS ORDERED: fentaNYL Citrate/PF 2,000 MCG in Sodium Chloride 0.9% 60 ML IV SCH (09:40)
[2017-08-04] MEDS ORDERED: Midazolam HCl 2 mg/2 ml Vial SLOW IVP SCH (09:45)
--- NOTE | 2017-08-04 10:17 | OP ---
PROCEDURE: Fiberoptic bronchoscopy with intubation. DESCRIPTION OF PROCEDURE: Patient was in the sitting position at about 30 degrees. Bite block was p laced in her mouth. Throat was sprayed with Cetacaine spray. Bronchoscope was introduced through he r mouth and passed down to her glottis. She had tremendous amount of redundant upper airway tissue. The orifice with her awake was barely larger than the scope and orifice under epiglottis again was b iman larger than the scope. Her trachea was cannulated with a bronchoscope. The endotracheal tube was advanced and secured above the kathleen. Her tracheobronchial tree was inspected, no endobronchial lesions were seen. She tolerated intubation well. She was sedated with 2 mg Versed and connected t o mechanical ventilation. Sedation protocol will be added. An orogastric tube will be placed hopefully.
--- NOTE | 2017-08-04 10:18 | PRG ---
DATE OF SERVICE: 08/04/2017 SUBJECTIVE: Ms. Springer's blood gas after removal of BiPAP showed significant CO2 retention with pH of 7.27. Her pCO2 is 100, pO2 of 70. It is my feeling that she will not live very long with this de gree of hypoventilation. I have recommended intubation and a tracheostomy. She is anticoagulated, s o her anticoagulants will have to be held for 24-48 hours before we consider tracheostomy. We explained this to her and was explained in Irish to her family by phone and they agreed to proce ed with the procedure, she speaks enough Polish, she could understand what we are talking about. In tubation will be dictated in a separate procedure. Critical care time total this point is 35 minutes independent of the procedure and the bronchoscopy.
[2017-08-04 10:45] LABS: Actual Bicarbonate (HCO3a) 42.9 mEq/L (22-26); Base Excess (BEa) 15.2 mEq/L (0 (+/-) 2.5); Calcium, Ionized 1.1 mmol/L (1.12-1.30); Hemoglobin (Hb) 7.2 g/dL (12.0-16.0); O2 Tension (PaO2) 59.9 mmHg (80.0-100.0); pH, Arterial 7.34 (7.35-7.45)
[2017-08-04 10:46] LABS: Puncture Site LB
[2017-08-04] MEDS: Lorazepam 2 MG/ML VIAL SLOW IVP PRN ×3 (11:46→20:15)
--- NOTE | 2017-08-04 13:04 | ADD-PRG ---
DATE: 08/04/2017 This is an addendum to the note of Dr. Navin Herman. Early yesterday, Ms. Springer improved to the point where we were considering discharge. However, ove r the course of the day, she became obtunded and developed a profound respiratory acidosis. She was placed on BiPAP overnight, but did not do well. This morning, she was intubated by the manager online a nd is now on mechanical ventilation. Caused factors are multifactorial. We will follow with the int ensivist.
[2017-08-04 13:14] LABS: Smooth Muscle Total ABS 14 Units (0-19)
[2017-08-04] MEDS: Sodium Chloride 0.9% 1,000 ML IV SCH (16:58)
[2017-08-04] MEDS: Propofol 1,000 MG/100 ML VIAL IV PRN (18:24)
[2017-08-05] MEDS: Lorazepam 2 MG/ML VIAL SLOW IVP PRN ×2 (02:29→16:52)
[2017-08-05] MEDS: Propofol 1,000 MG/100 ML VIAL IV PRN ×3 (02:29→21:00)
[2017-08-05] MEDS: Sodium Chloride 0.9% 1,000 ML IV SCH ×2 (02:30→16:34)
[2017-08-05] MEDS ORDERED: Levothyroxine Sodium 200 MCG VIAL IVP SCH (06:00)
[2017-08-05 06:07] LABS: #Eosinphils 0.1 thou/uL (0.0-0.7); #Lymphocytes 1.7 thou/uL (1.20-3.40); #Monocytes 0.6 thou/uL (0.11-0.59); #Neutrophils 2.3 thou/uL (1.40-6.50); %Basophils 0.5 % (0.0-1.0); %Eosinophils 1.6 % (0.0-10.0); %Monocytes 13.3 % (0.0-10.0); %Neutrophils 48.5 % (42.0-75.0); MDiff Complete? YES; Macrocytosis SLIGHT = 6-15 cells (100X) (0-5/hpf); Mean Corpuscular HGB CONC 30.8 g/dL (32.0-36.0); Mean Corpuscular Hemoglobin 33.6 pg (27.0-31.0); Mean Platelet Volume 9.7 fL (7.4-10.4); PLT Morphology Comment Appears Decreased; Platelet Count 77 thou/uL (130-400); Polychromasia SLIGHT = 2-3 cells (100X) (0-2/hpf); Red Blood Cell (RBC) Count 2.37 mill/uL (4.20-5.40); Target Cells SLIGHT = 2-5 cells (100X) (0-1/hpf); White Blood Cell (WBC) Count 4.8 thou/uL (4.8-10.8)
[2017-08-05 06:22] LABS: Anion Gap 13 mmol/L (10-20); BUN (Urea Nitrogen) 23 mg/dL (9.8-20.1); Calc. Creatinine Clearance 160 mL/min (70-130); Calcium 8.2 mg/dL (7.8-10.44); Carbon Dioxide 34 mmol/L (22-29); Chloride 94 mmol/L (98-107); Estimated GFR-MDRD 67; Glucose 76 mg/dL (70-105); Potassium 4.3 mmol/L (3.5-5.1); Sodium 137 mmol/L (136-145)
[2017-08-05 06:55] LABS: Band 2 % (5-11); Eosinophils 4 % (0-10); Hemoglobin 8.1 g/dL (12.0-16.0); Lymphocytes 32 % (21-51); MDiff Complete? YES; Macrocytosis SLIGHT = 6-15 cells (100X) (0-5/hpf); Mean Corpuscular HGB CONC 31.1 g/dL (32.0-36.0); Mean Corpuscular Hemoglobin 33.8 pg (27.0-31.0); Mean Platelet Volume 10.1 fL (7.4-10.4); Monocytes 10 % (0-10); Neutrophil 52 % (42-75); PLT Morphology Comment Appears Decreased; Platelet Count 76 thou/uL (130-400); RBC Distribution Width 17.9 % (11.5-14.5); Red Blood Cell (RBC) Count 2.39 mill/uL (4.20-5.40); Target Cells SLIGHT = 2-5 cells (100X) (0-1/hpf); White Blood Cell (WBC) Count 4.8 thou/uL (4.8-10.8)
[2017-08-05] MEDS: Levothyroxine 100 MCG SDV IVP SCH (07:24)
[2017-08-05 08:40] LABS: Actual Bicarbonate (HCO3a) 38.2 mEq/L (22-26); Base Excess (BEa) 12.9 mEq/L (0 (+/-) 2.5); Calcium, Ionized 1.1 mmol/L (1.12-1.30); Hematocrit-ABG 29.7 % (36.0-47.0); Hemoglobin (Hb) 7.8 g/dL (12.0-16.0); O2 Tension (PaO2) 61.2 mmHg (80.0-100.0); pH, Arterial 7.46 (7.35-7.45)
[2017-08-05 08:42] LABS: Puncture Site RR
--- NOTE | 2017-08-05 08:46 | RAD ---
PORTABLE CHEST ONE VIEW: Date: 08-05-17 Time: 5:08 a.m. History: Respiratory failure. FINDINGS/IMPRESSION: Comparison is made with exam of 08-02-17. Interval placement of an endotracheal tube is seen with the tip at the level of the clavicular heads. Nasogastric tube can be traced into the stomach. The heart size is enlarged. There is pulmonary vasc ular congestion with consolidation/atelectatic changes in the left lung base, and accompanying left e ffusion. No pneumothoraces are seen. POS: HYACINTH
[2017-08-05] MEDS ORDERED: Famotidine/PF 20 mg/2ml Vial SLOW IVP SCH (09:00)
--- NOTE | 2017-08-05 09:15 | PDOC.FM ---
- Subjective Subjective: Patient intubted and sedated. - Objective Vital Signs & Weight: Vital Signs (12 hours) Temp Pulse Resp BP Pulse Ox 08/05/17 08:19 63 130/82 08/05/17 06:00 12 08/05/17 04:00 98.6 F 18 08/05/17 02:00 18 08/05/17 00:59 64 12 100 08/05/17 00:55 65 08/05/17 00:00 99.6 F 12 08/04/17 22:06 67 08/04/17 22:00 12 Weight Admit Weight 151.046 kg Weight 144 kg Most Recent Monitor Data Heart Rate from ECG 63 NIBP 123/78 NIBP BP-Mean 85 Respiration from ECG 24 SpO2 94 I&O: 08/04/17 08/05/17 08/06/17 06:59 06:59 06:59 Intake Total 1732 1881.1 Output Total 1125 1560 125 Balance 607 321.1 -125 Result Diagrams: 08/05/17 03:51 08/05/17 03:51 Phys Exam - Physical Examination Constitutional: NAD Respiratory: no wheezing, no rales difficult exam due to habitus. Cardiovascular: RRR, no significant murmur Gastrointestinal: soft, no distention, positive bowel sounds Musculoskeletal: no edema Dx/Plan (1) Acute on chronic respiratory failure with hypoxia and hypercapnia Code(s): J96.21 - ACUTE AND CHRONIC RESPIRATORY FAILURE WITH HYPOXIA; J96.22 - ACUTE AND CHRONIC RESPIRATORY FAILURE WITH HYPERCAPNIA Status: Chronic Plan: acute obtundation on day of discharge with A on C resp acidosis. Family has opted to do elective trach due to patient non compliance with home cpap. Awaiting rec per pulm to proceed with trach placement. Consult rehab for DC planning. (2) Atypical chest pain Code(s): R07.89 - OTHER CHEST PAIN Status: Resolved Plan: Nuc stress without evidence for reversible ischemia. Likely 2/2 breast pain. (3) Pain of right breast Code(s): N64.4 - MASTODYNIA Status: Acute Plan: Recommend outpatient repeat of US and mammogram. (4) Hypoventilation associated with obesity Code(s): E66.2 - MORBID (SEVERE) OBESITY WITH ALVEOLAR HYPOVENTILATION Status : Chronic (5) Pancytopenia Code(s): D61.818 - OTHER PANCYTOPENIA Status: Chronic Plan: autoimmune hep panel pending. chronic in nature. (6) Diastolic CHF Code(s): I50.30 - UNSPECIFIED DIASTOLIC (CONGESTIVE) HEART FAILURE Status: Chronic Qualifiers: Congestive heart failure chronicity: acute on chronic Qualified Code(s): I50.33 - Acute on chronic diastolic (congestive) heart failure (7) KATE (obstructive sleep apnea) Code(s): G47.33 - OBSTRUCTIVE SLEEP APNEA (ADULT) (PEDIATRIC) Status: Chronic (8) Paroxysmal a-fib Code(s): I48.0 - PAROXYSMAL ATRIAL FIBRILLATION Status: Chronic Plan: eliquis held to proceed with trach.
[2017-08-05] MEDS: Famotidine 40 MG/4 ML VIAL SLOW IVP SCH (10:52)
--- NOTE | 2017-08-05 12:39 | ADD-PRG ---
DATE OF SERVICE: 08/05/2017 This is an addendum to the note of Dr. Mary Fernandez. Ms. Springer is currently sedated on the ventilator. Her arterial blood gases this morning show a pH 7.46, pCO2 of 55, pO2 of 61.2. She is currently on mechanical ventilatory support with SIMV at 12. FiO2 of 32%, tidal volume 450. CBC this morning shows 4800 white count, hemoglobin is 8, hematocrit 25.8. These numbers are all sta ble and similar to what they were previously. Her Chem-7 shows a sodium 137, potassium 4.3, chloride 94, bicarbonate 34, BUN 23, creatinine 0.86. ASSESSMENT: Multiple problems and comorbidities, currently stable on ventilator. Our plans are in a day or two to have a tracheostomy performed for permanent ventilatory support.
[2017-08-05] MEDS ORDERED: Ipratropium Bromide 2.5 ml Neb NEB SCH (14:30)
[2017-08-05] MEDS ORDERED: Ipratropium Bromide 2.5 ml Neb NEB PRN (14:44)
[2017-08-05] MEDS: Lisinopril 2.5 MG TAB PO SCH (15:17)
[2017-08-05] MEDS: predniSONE 20 MG TAB PO SCH (15:17)
[2017-08-05] MEDS: Potassium Chloride 20 MEQ TAB PO SCH (15:18)
--- NOTE | 2017-08-05 22:21 | PRG ---
DATE OF SERVICE: 08/05/2017 SUBJECTIVE: Gian stable overnight. OBJECTIVE: VITAL SIGNS: Blood pressure 108/65, heart rates in the 70s, respiratory rates in the 20s, oximetry i s in the 90s-100 range. LUNGS: Clear. CARDIOVASCULAR: Regular rhythm. S1 and S2 are distant. ABDOMEN: Soft and nontender. EXTREMITIES: Without asymmetry. LABORATORY DATA: Sodium 137, potassium 4.3, chloride 94, bicarbonate 34, BUN 23, creatinine 0.86. A pH 7.46, pCO2 of 55, pO2 of 61. White count 4.8, hemoglobin 8.1, platelets 76,000. Chest radiograph is hazy at the left base. IMPRESSION: 1. Respiratory failure. 2. Life threatening obesity. I have explained to the family and the nurses have explained to family in [place] said she has reached a point where she is actually too large and too weak to breathe with out a tracheostomy. She is 5 feet 1, 317 pounds and has basically been in the fulltime care environm ent for 2 years and then home for a while and unable to do anything for herself. Her tracheostomy is the only way to treat her sleep apnea in my opinion and her life span will be lemus ited by her size, unless she successfully loses weight. Since she has been anticoagulated, we held a nticoagulants. We will consult General Surgery in the morning for tracheostomy after the anticoagula nts have been off for 48 hours. Her prognosis remains extremely guarded. This has been explained to the family. Critical care time was 30 minutes.
[2017-08-06] MEDS: Sodium Chloride 0.9% 1,000 ML IV SCH ×2 (00:04→22:49)
[2017-08-06] MEDS: Propofol 1,000 MG/100 ML VIAL IV PRN ×3 (02:50→23:23)
[2017-08-06 04:55] LABS: Anion Gap 14 mmol/L (10-20); BUN (Urea Nitrogen) 22 mg/dL (9.8-20.1); Calc. Creatinine Clearance 181 mL/min (70-130); Calcium 8.1 mg/dL (7.8-10.44); Carbon Dioxide 29 mmol/L (22-29); Chloride 97 mmol/L (98-107); Estimated GFR-MDRD 79; Glucose 85 mg/dL (70-105); Potassium 4.3 mmol/L (3.5-5.1); Sodium 136 mmol/L (136-145)
[2017-08-06 05:09] LABS: Band 9 % (5-11); Eosinophils 6 % (0-10); Hemoglobin 8.5 g/dL (12.0-16.0); Lymphocytes 27 % (21-51); MDiff Complete? YES; Mean Corpuscular HGB CONC 31.7 g/dL (32.0-36.0); Mean Corpuscular Hemoglobin 33.8 pg (27.0-31.0); Mean Platelet Volume 9.1 fL (7.4-10.4); Monocytes 4 % (0-10); Neutrophil 53 % (42-75); PLT Morphology Comment Appears Decreased; Platelet Count 86 thou/uL (130-400); Target Cells SLIGHT = 2-5 cells (100X) (0-1/hpf); White Blood Cell (WBC) Count 5.7 thou/uL (4.8-10.8)
[2017-08-06 06:25] LABS: Actual Bicarbonate (HCO3a) 33.7 mEq/L (22-26); Base Excess (BEa) 8.6 mEq/L (0 (+/-) 2.5); CO2 Tension 51.2 mmHg (35.0-45.0); Calcium, Ionized 1.1 mmol/L (1.12-1.30); Hematocrit-ABG 29.7 % (36.0-47.0); Hemoglobin (Hb) 7.5 g/dL (12.0-16.0); O2 Tension (PaO2) 63.3 mmHg (80.0-100.0); pH, Arterial 7.44 (7.35-7.45)
[2017-08-06 06:27] LABS: Puncture Site RRA
[2017-08-06] MEDS: Levothyroxine 100 MCG SDV IVP SCH (06:30)
--- NOTE | 2017-08-06 08:59 | RAD ---
PORTABLE AP CHEST XRAY: DATE: 08/06/17. HISTORY: Followup evaluation. Patient on a ventilator. COMPARISON: 08/05/17. FINDINGS: Endotracheal tube and nasogastric tubes remain in place and unchanged in position. Cardiac silhouett e remains enlarged. There is mild increase in perihilar interstitial densities asymmetrically greate r on the left. There is a suggestion of a small left pleural effusion. The chest has not significan tly changed when compared to the prior exam. IMPRESSION: 1. Cardiomegaly with mild pulmonary vascular congestion. Findings are likely related to mild asymme tric pulmonary edema. 2. Small left pleural effusion. POS: [facility]
[2017-08-06] MEDS ORDERED: Lidocaine 1% PF 5 ML VIAL ONE (09:00)
[2017-08-06] MEDS ORDERED: Ondansetron HCl/PF 4 MG/2 ML Vial ONE (09:00)
[2017-08-06] MEDS ORDERED: Propofol 200 MG/20 ML VIAL ONE (09:00)
[2017-08-06] MEDS: Lisinopril 2.5 MG TAB PO SCH (09:34)
[2017-08-06] MEDS: Famotidine 40 MG/4 ML VIAL SLOW IVP SCH (09:34)
[2017-08-06] MEDS: Potassium Chloride 20 MEQ TAB PO SCH (09:34)
--- NOTE | 2017-08-06 11:07 | PDOC.FM ---
- Subjective Subjective: Patient did well overnight. Family apparently now does not want to make decision about trach. They have not returned however to discuss this. Palliative care has been consulted to assist with goals of care. - Objective MAR Reviewed: Yes Vital Signs & Weight: Vital Signs (12 hours) Temp Pulse Resp BP Pulse Ox 08/06/17 10:26 68 122/63 08/06/17 09:34 77 90/43 L 08/06/17 08:00 98.5 F 08/06/17 07:33 77 90/43 L 08/06/17 06:00 19 08/06/17 04:00 98.5 F 20 08/06/17 02:00 23 H 08/06/17 01:53 74 12 93 L 08/06/17 00:00 98.4 F 25 H Weight Admit Weight 151.046 kg Weight 137.2 kg Most Recent Monitor Data Heart Rate from ECG 77 NIBP 133/70 NIBP BP-Mean 88 Respiration from ECG 23 SpO2 94 I&O: 08/05/17 08/06/17 08/07/17 06:59 06:59 06:59 Intake Total 1881.1 2195 Output Total 1560 1490 95 Balance 321.1 705 -95 Result Diagrams: 08/06/17 04:24 08/06/17 04:24 Phys Exam - Physical Examination Constitutional: NAD Respiratory: no wheezing, no rales, no rhonchi, clear to auscultation bilateral limited anterior exam. Cardiovascular: RRR, no significant murmur Gastrointestinal: soft, non-tender, no distention, positive bowel sounds Musculoskeletal: no edema Neurological: non-focal Dx/Plan (1) Acute on chronic respiratory failure with hypoxia and hypercapnia Code(s): J96.21 - ACUTE AND CHRONIC RESPIRATORY FAILURE WITH HYPOXIA; J96.22 - ACUTE AND CHRONIC RESPIRATORY FAILURE WITH HYPERCAPNIA Status: Chronic Plan: acute obtundation on day of discharge with A on C resp acidosis. -Family originally opted to do elective trach due to patient non compliance with home cpap. -planning to go for trach today but will be pending family decision. (2) Atypical chest pain Code(s): R07.89 - OTHER CHEST PAIN Status: Resolved Plan: Nuc stress without evidence for reversible ischemia. Likely 2/2 breast pain and questionable cellulitis. (3) Pain of right breast Code(s): N64.4 - MASTODYNIA Status: Acute Plan: Recommend outpatient repeat of US and mammogram. (4) Hypoventilation associated with obesity Code(s): E66.2 - MORBID (SEVERE) OBESITY WITH ALVEOLAR HYPOVENTILATION Status : Chronic (5) Pancytopenia Code(s): D61.818 - OTHER PANCYTOPENIA Status: Chronic Plan: autoimmune hep panel pending. chronic in nature. (6) Diastolic CHF Code(s): I50.30 - UNSPECIFIED DIASTOLIC (CONGESTIVE) HEART FAILURE Status: Chronic Qualifiers: Congestive heart failure chronicity: acute on chronic Qualified Code(s): I50.33 - Acute on chronic diastolic (congestive) heart failure (7) KATE (obstructive sleep apnea) Code(s): G47.33 - OBSTRUCTIVE SLEEP APNEA (ADULT) (PEDIATRIC) Status: Chronic (8) Paroxysmal a-fib Code(s): I48.0 - PAROXYSMAL ATRIAL FIBRILLATION Status: Chronic Plan: eliquis held to proceed with trach.
--- NOTE | 2017-08-06 12:03 | ADD-PRG ---
DATE OF SERVICE: 08/06/2017 This is an addendum to the note of Dr. Mary Fernandez. Ms. Springer was being weaned off sedation in anticipation of tracheostomy today. However, the family has decided to wait and discuss this personally with Ms. Springer. From a clinical standpoint though still on the ventilator, she is otherwise stable with a MAP of 82. She will arouse to questions and tactile stimulation. Her labs this morning shows stability with hemoglobin of 8.5, hematocrit 26.7, white count of 5700. Chemistries: Sodium 136, potassium 4.3, chloride 97, bicarbonate 29, BUN 22, and creatinine 0.75. We will await family conference to determine whether the patient does in fact want a tracheostomy.
--- NOTE | 2017-08-06 12:10 | HP ---
HISTORY OF PRESENT ILLNESS: This is a 62-year-old female, morbidly obese, 5 foot 1. 302 pounds, 57 BMI. I have been consulted for tracheostomy and central line. The patient was admitted on 7 with dyspnea. She has history of COPD, sleep apnea on CPAP at bedtime, 2 liters oxygen during the day and a history of diastolic congestive heart failure. I have been asked to see her regarding plac ement of tracheostomy and central line. PAST MEDICAL HISTORY: Hypothyroidism, morbid obesity, paroxysmal atrial fibrillation, hypertension, COPD, sleep apnea, chronic venous stasis, diastolic congestive failure, and depression. PAST SURGICAL HISTORY: Cholecystectomy, , tonsillectomy, incision and drainage infection le g. ALLERGIES: PENICILLIN and AUGMENTIN. MEDICATIONS: Proventil, Nicoderm, Eliquis, simvastatin, furosemide, tramadol, Protonix, Tylenol, Christel exa, iron, Advair, levothyroxine, aspirin, lisinopril, folic acid, vitamin D, and Keflex 250 b.i.d. ALCOHOL USE: None. DRUG USE: None PHYSICAL EXAMINATION: VITAL SIGNS: 5 foot 1. 302 pounds. 57 BMI, 68, and 122/63. HEAD, EARS, EYES, NOSE, AND THROAT: Unremarkable. LUNGS: Clear to auscultation. CARDIAC: Regular rate and rhythm without murmur or gallop. ABDOMEN: Soft, obese, nontender. Large pannus. EXTREMITIES: Unremarkable. ASSESSMENT AND PLAN: Morbid obesity. We will plan placement of tracheostomy tube and central line. Risks and benefits have been explained to the family, who is signed consent.
[2017-08-06] MEDS ORDERED: Bupivacaine/Epinephrine 0.25% 30 ML VIAL ONE (16:14)
[2017-08-06] MEDS ORDERED: Lidocaine 2% PF 5 ML VIAL ONE (16:15)
[2017-08-06] MEDS ORDERED: Fentanyl 100 MCG/2 ML VIAL ONE (16:17)
[2017-08-06] MEDS ORDERED: Midazolam HCl 2 mg/2 ml Vial ONE (16:17)
--- NOTE | 2017-08-06 21:36 | RAD ---
CHEST ONE VIEW 08/06/17 HISTORY: Central line placement. COMPARISON: Chest one view same day. FINDINGS: New left central venous catheter is in place with tip at the inferior SVC. Large left pneumothorax wi th rightward mediastinal shift. Tracheostomy tube is in place. The right lung is relatively clear. IMPRESSION: Large left pneumothorax which may be under tension with rightward mediastinal shift. Some of this med iastinal shift is sequela of rightward patient rotation. Roslyn nurse practitioner taking care of patient was notified of the findings via telephone at 7:11 p. m. CODE: CHRISTY POS: [facility]
--- NOTE | 2017-08-06 21:43 | RAD ---
CHEST ONE VIEW: HISTORY: Left chest tube placement. COMPARISON: Chest, one view, same day. FINDINGS: Interval placement of left thoracostomy tube with marked improvement in left-sided pneumothorax. The re is re-expansion pulmonary edema in the left upper lobe. No significant pneumothorax is appreciate d. Tracheostomy tube is present. IMPRESSION: No significant residual pneumothorax remaining after thoracostomy tube placement. POS: [facility]
--- NOTE | 2017-08-06 22:10 | OP ---
DATE OF PROCEDURE: 08/06/2017 PREOPERATIVE DIAGNOSES: Morbid obesity, respiratory failure and poor IV access. POSTOPERATIVE DIAGNOSES: Morbid obesity, respiratory failure and poor IV access. PROCEDURES PERFORMED: Left subclavian vein, triple lumen catheter. A #8 Shiley tracheostomy tube lo w-pressure cuff. SURGEON: Dr. Jonh Jolley. ANESTHESIA: General. Local with 0.25% Marcaine with epinephrine, 30 mL, mixed with 2% Xylocaine, 10 mL. DESCRIPTION OF PROCEDURE: Patient was taken to the operating room where under general anesthesia, ne ck and chest were prepared with chloraprep, draped in routine fashion. Using sterile technique, troc ar catheter cannulated the left subclavian vein Seldinger technique used to place a left subclavian v ein, triple lumen catheter, secured with 2 interrupted sutures of 3-0 silk, removing the J wire and a spirating each port with blood and flushed with heparinized saline solution. Sterile dressing applie d with Biopatch. Patient tolerated the procedure well. An incision was made above the manubrium, anterior neck and carried down through the skin and platysm a, identifying the large anterior jugular veins, divided them between 3-0 silk ties. The platysma wa s divided and flaps reflected cephalad and caudally. Midline dissection carried down to the trachea where the cricoid was identified and a tracheostomy hook was placed below it. A window made over two cartilaginous rings with an 11 blade after strap sutures on either side, placed with 3-0 Prolene and air knots tied and secured to the anterior chest wall with Op-Site. Once the window was made, endot rhoda tube was withdrawn under direct visualization, a #8 Shiley low-pressure cuff tracheostomy tub e placed under direct visualization in the trachea and connected to the ventilator. Good saturations were noted. Skin approximated on either side with continuous suture of 3-0 Prolene, Surgicel placed around the surgical site in the wound bed. Sterile dressing applied. Patient tolerated the procedu re well.
[2017-08-07 05:01] LABS: Anion Gap 8 mmol/L (10-20); BUN (Urea Nitrogen) 19 mg/dL (9.8-20.1); Calc. Creatinine Clearance 180 mL/min (70-130); Calcium 7.9 mg/dL (7.8-10.44); Carbon Dioxide 32 mmol/L (22-29); Chloride 100 mmol/L (98-107); Estimated GFR-MDRD 79; Glucose 90 mg/dL (70-105); Potassium 3.9 mmol/L (3.5-5.1); Sodium 136 mmol/L (136-145)
[2017-08-07 05:16] LABS: Band 3 % (5-11); Eosinophils 2 % (0-10); Hemoglobin 8.9 g/dL (12.0-16.0); Lymphocytes 15 % (21-51); MDiff Complete? YES; Mean Corpuscular HGB CONC 31.2 g/dL (32.0-36.0); Mean Corpuscular Hemoglobin 33.2 pg (27.0-31.0); Mean Platelet Volume 9.5 fL (7.4-10.4); Monocytes 9 % (0-10); Neutrophil 71 % (42-75); PLT Morphology Comment Appears Decreased; Platelet Count 86 thou/uL (130-400); RBC Distribution Width 18.1 % (11.5-14.5); Red Blood Cell (RBC) Count 2.68 mill/uL (4.20-5.40); White Blood Cell (WBC) Count 6.3 thou/uL (4.8-10.8)
[2017-08-07] MEDS: Levothyroxine 100 MCG SDV IVP SCH (05:20)
[2017-08-07] MEDS: Sodium Chloride 0.9% 1,000 ML IV SCH (05:20)
[2017-08-07] MEDS: Propofol 1,000 MG/100 ML VIAL IV PRN (05:20)
--- NOTE | 2017-08-07 05:27 | OP ---
DATE OF SERVICE: 08/06/2017 SERVICE: Pulmonary Medicine. PROCEDURE: Left anterior second intercostal space, 8-Liberian chest tube placement. CONSENTS: This was implied secondary to emergent procedures. STAFF PHYSICIAN: Oscar Quiñones M.D. MEDICATIONS: None. PREOPERATIVE DIAGNOSES: 1. Tension pneumothorax. 2. Shock. POSTPROCEDURE DIAGNOSES: 1. Tension pneumothorax. 2. Shock. DESCRIPTION OF PROCEDURE: Timeout was performed by the procedure team and the patient. The patient was positively identified using name and date of . The procedure site was marked. Vital signs monitoring was accomplished by noninvasive hemodynamic monitoring, pulse oximetry, and telemetry. In the supine position, the patient's anterior chest was cleaned in a sterile fashion with chlorhexidin e scrub. The angle of Sonny was difficult to identify, but was palpated. The second rib was palpate d to the midclavicular line. I dropped one interspace below. A small incision was made with the sca lpel. An 8-Liberian pleural drainage catheter was then inserted in the same location. There was a ever h of air and the patient's hemodynamics responded almost immediately. The skin was closed with 2-0 i nterrupted sutures. The catheter was secured with 2 separate sutures. He was hooked up to the atriu m. A small, but peristent air leak was identified. Postprocedure x-ray demonstrated significant imp rovement in the pneumothorax. The mediastinum was no longer shifted to the contralateral side. The patient tolerated the procedure without significant complications. ESTIMATED BLOOD LOSS: 5 mL. COMPLICATIONS: None.
[2017-08-07 07:26] LABS: Actual Bicarbonate (HCO3a) 31.7 mEq/L (22-26); Base Excess (BEa) 5.3 mEq/L (0 (+/-) 2.5); CO2 Tension 57.9 mmHg (35.0-45.0); Calcium, Ionized 1.1 mmol/L (1.12-1.30); Hematocrit-ABG 33.5 % (36.0-47.0); O2 Tension (PaO2) 64.4 mmHg (80.0-100.0); pH, Arterial 7.36 (7.35-7.45)
[2017-08-07 07:27] LABS: Puncture Site RRA
[2017-08-07 07:28] LABS: ALV-art Gradient 200.685 (0-20)
[2017-08-07] MEDS ORDERED: Lidocaine 1% (PF) 30 ML VIAL ONE (07:35)
--- NOTE | 2017-08-07 09:28 | RAD ---
FRONTAL VIEW CHEST: INDICATION: Line placement. COMPARISON: Earlier same day. FINDINGS: Tracheostomy remains. There is a left subclavian venous catheter with tip overlying the cavoatrial j unction. There is marked enlargement of the cardiac silhouette with prominent edema. Since the prior exam, there has been placement of a left thoracostomy tube with resolution of pneumot horax. IMPRESSION: 1. Interval left thoracostomy tube placement with resolution of prior left pneumothorax. 2. Extensive pulmonary parenchymal opacification bilaterally with vascular congestion and enlarged c ardiac silhouette may relate to decompensated congestive heart failure. Continued followup is zen márquez. POS: [facility]
[2017-08-07] MEDS ORDERED: Furosemide 20 MG/2 ML VIAL SLOW IVP SCH (10:30)
[2017-08-07] MEDS: Famotidine 40 MG/4 ML VIAL SLOW IVP SCH (10:34)
[2017-08-07] MEDS: Potassium Chloride 20 MEQ TAB PO SCH (10:34)
[2017-08-07] MEDS: Lisinopril 2.5 MG TAB PO SCH (10:34)
--- NOTE | 2017-08-07 10:52 | RAD ---
RADIOGRAPH OF CHEST SINGLE VIEW: COMPARISON: Reference is made to the previous radiograph of 08/06/17 at 1929 hours. INDICATION: Pneumothorax, followup. FINDINGS: There has been interval redevelopment of a large left pneumothorax with associated compression upon t he left pulmonary parenchyma and slight rightward deviation of the midline structures, although the p atient is rotated. Extrinsic artifact limits detail. Marked enlargement of the cardiomediastinal si lhouette. Note is made that there is a subsequent chest radiograph which reveals a larger chest tube placement and resolution of the pneumothorax performed just subsequent to this exam. These findings were discussed with the patient's care provider in the family medicine service. IMPRESSION: Left side pneumothorax, as above. CODE CR POS: [facility]
--- NOTE | 2017-08-07 11:28 | PRG ---
DATE OF SERVICE: 08/07/2017 SERVICE: Pulmonary Medicine. INTERVAL HISTORY: The patient is doing okay from a respiratory standpoint. Last night, she had a te nsion pneumothorax associated with central line placement. Because of this, an emergent anterior lef t midclavicular chest tube was placed. This has subsequently been upgraded to an open chest tube thi s morning. She tolerated both these procedures quite well. She denies any current fevers, chills, n ausea or vomiting. She is breathing very comfortably on pressure support ventilation. We will work on mobility as time goes on. PHYSICAL EXAMINATION: VITAL SIGNS: Afebrile, pulse 75, blood pressure 148/79, respirations 18, saturation 98% on 45% FiO2. GENERAL: The patient has tracheostomy. She is on no sedation. She is in no apparent distress. HEENT: Normocephalic, atraumatic. Sclerae are white, conjunctivae pink. Oral and nasal mucosa is m oist without lesions. Tracheostomy has some fresh blood, but it is minimal. It is clean and dry. T here is no evidence of purulence coming from the site. LUNGS: Decent air entry with rhonchi present throughout bilateral lung perry. No prolonged expirat ory phase or wheezing is appreciated. Crackles are dependent. HEART: Normal rate and regular. ABDOMEN: Soft, nontender, nondistended. Bowel sounds are positive. MUSCULOSKELETAL: No cyanosis or clubbing. There is trace to 1+ pitting throughout. GENITOURINARY: Magana catheter in place. NEUROLOGIC: Grossly nonfocal. LABORATORY DATA: WBC 6.3, hemoglobin 8.9, platelets 86,000. Band count is only 3% with a normal nury trophil count. A pH 7.36, pCO2 58, and pO2 64. Basic metabolic profile is completely unremarkable. IMAGING: Chest tube demonstrates replacement of the small bore anterior chest tube with larger chest device. There is good reexpansion of the lung. There is extensive parenchymal infiltrates. There is vascular congestion present. ASSESSMENT: 1. Acute on chronic hypoxic and hypercapnic respiratory failure. 2. Obesity hypoventilation syndrome. 3. Obstructive sleep apnea, severe. 4. Acute on chronic diastolic heart failure. PLAN: We will continue supportive care. We will wean pressure support ventilation as time goes on. We will diurese the patient until she returns to euvolemia. We will watch for increasing signs of i nfection. At this point, the patient is stable for transition out of the ICU to an LTAC facility whe re they can continue working on mobilizing the patient as much as tolerated. CRITICAL CARE TIME: 30 minutes.
[2017-08-07 12:17] LABS: Bilirubin Negative (Negative); Blood, Urine Large (Negative); Clarity CLOUDY (Clear); Glucose, Urine (Dipstick) Negative (Negative); Leukocyte Large (Negative); Nitrite Negative (Negative); Protein, Urine (Dipstick) Negative (Neg-Trace); Specific Gravity, Urine 1.012 (1.002-1.036); Urobilinogen 0.2 mg/dL (0.2-1.0)
[2017-08-07 12:19] LABS: Bacteria/HPF 2+ HPF (None Seen); RBC/HPF GREATER THAN 50-TNTC HPF (0-3); Squamous Epithelial 0-3 HPF (0-3); WBC/HPF 21-50 HPF (0-3); Yeast-AUWi Flag 21.6 (0-25.0)
[2017-08-07 12:29] LABS: Hyaline Casts/LPF 4-6 HYALINE CAST LPF (0-3 Hyaline); Manual Microscopic Reviewed? No Path Casts Seen; Pathc Cast-AUWi Flag 6.23 (0-2.49)
--- NOTE | 2017-08-07 12:37 | PDOC.FM ---
- Subjective Subjective: Patient resting comfortable. Does not indicate any concerns. Late yesterday patient wet for trach and had a tension pneumothorax and a chest tube was placed. This is now to suction, doing well. Appears to be resolved on xray. - Objective MAR Reviewed: Yes Vital Signs & Weight: Vital Signs (12 hours) Temp Pulse Resp BP 08/07/17 11:22 69 126/60 08/07/17 10:34 70 132/68 08/07/17 10:10 70 132/68 08/07/17 08:58 75 147/73 H 08/07/17 07:00 98.5 F 08/07/17 06:20 74 117/65 08/07/17 04:00 99 F 25 H 08/07/17 02:12 68 08/07/17 02:00 24 H Weight Admit Weight 151.046 kg Weight 143.2 kg Most Recent Monitor Data Heart Rate from ECG 70 NIBP 134/68 NIBP BP-Mean 83 Respiration from ECG 24 SpO2 96 I&O: 08/06/17 08/07/17 08/08/17 06:59 06:59 06:59 Intake Total 2195 1850 Output Total 1490 1625 125 Balance 705 225 -125 Result Diagrams: 08/07/17 03:47 08/07/17 03:47 <Mary Fernandez - Last Filed: 08/07/17 12:35> - Objective Vital Signs & Weight: Vital Signs (12 hours) Temp Pulse Resp BP Pulse Ox 08/07/17 16:00 98.6 F 27 H 08/07/17 14:35 77 117/57 L 08/07/17 14:00 26 H 08/07/17 12:52 73 109/58 L 08/07/17 12:00 99.4 F 24 H 08/07/17 11:22 69 126/60 08/07/17 10:34 70 132/68 08/07/17 10:10 70 132/68 08/07/17 10:00 23 H 08/07/17 08:58 75 147/73 H 08/07/17 08:00 98.5 F 69 24 H 96 08/07/17 07:00 98.5 F 08/07/17 06:20 74 117/65 Weight Admit Weight 151.046 kg Weight 143.2 kg Most Recent Monitor Data Heart Rate from ECG 73 NIBP 108/60 NIBP BP-Mean 68 Respiration from ECG 26 SpO2 93 I&O: 08/06/17 08/07/17 08/08/17 06:59 06:59 06:59 Intake Total 2195 1850 Output Total 1490 1625 890 Balance 705 225 -890 Result Diagrams: 08/07/17 03:47 08/07/17 03:47 <Maribel Siddiqui - Last Filed: 08/07/17 17:08> Phys Exam - Physical Examination Constitutional: NAD Respiratory: no wheezing moving air bilaterally, difficult exam due to habitus. Cardiovascular: RRR, no significant murmur Gastrointestinal: soft, non-tender trace edema Psychiatric: normal affect, A&O x 3 <Mary Fernandez - Last Filed: 08/07/17 12:35> Dx/Plan (1) Acute on chronic respiratory failure with hypoxia and hypercapnia Code(s): J96.21 - ACUTE AND CHRONIC RESPIRATORY FAILURE WITH HYPOXIA; J96.22 - ACUTE AND CHRONIC RESPIRATORY FAILURE WITH HYPERCAPNIA Status: Chronic Plan: acute obtundation on day of discharge with A on C resp acidosis. -patient now s/p trach. PLacement of this pt will be limiting factor for discharge. (2) Pneumothorax on left Code(s): J93.9 - PNEUMOTHORAX, UNSPECIFIED Status: Acute Plan: s/p chest tube to suction. (3) Atypical chest pain Code(s): R07.89 - OTHER CHEST PAIN Status: Resolved Plan: Nuc stress without evidence for reversible ischemia. Likely 2/2 breast pain and questionable cellulitis. (4) Pain of right breast Code(s): N64.4 - MASTODYNIA Status: Acute Plan: Recommend outpatient repeat of US and mammogram. (5) Hypoventilation associated with obesity Code(s): E66.2 - MORBID (SEVERE) OBESITY WITH ALVEOLAR HYPOVENTILATION Status : Chronic (6) Pancytopenia Code(s): D61.818 - OTHER PANCYTOPENIA Status: Chronic Plan: unclear etiology, stable. follow up outpatient. (7) Diastolic CHF Code(s): I50.30 - UNSPECIFIED DIASTOLIC (CONGESTIVE) HEART FAILURE Status: Chronic QualifierTitle: Congestive heart failure chronicity: acute on chronic Qualified Code(s): I50.33 - Acute on chronic diastolic (congestive) heart failure (8) KATE (obstructive sleep apnea) Code(s): G47.33 - OBSTRUCTIVE SLEEP APNEA (ADULT) (PEDIATRIC) Status: Chronic (9) Paroxysmal a-fib Code(s): I48.0 - PAROXYSMAL ATRIAL FIBRILLATION Status: Chronic Plan: eliquis held to proceed with trach. <Mary Fernandez - Last Filed: 08/07/17 12:35> Attending Addendum - Attending Addendum I personally evaluated the patient and discussed the management with Dr. Fernandez. I agree with the History, Examination, Assessment and Plan documented above with any addition or exceptions noted below. The patient had a chest tube placed this morning after tension pneumo yesterday. She tolerated the procedure well. The patient's urine is very dark this morning which is an acute change. Will get UA and culture. Pt needs LTAC placement. <Maribel Siddiqui - Last Filed: 08/07/17 17:08>
--- NOTE | 2017-08-07 12:57 | OP ---
DATE OF PROCEDURE: 08/07/2017 PROCEDURE PERFORMED: A 28-[place]izen [place] left tube thoracostomy. PREOPERATIVE DIAGNOSIS: Left pneumothorax. POSTOPERATIVE DIAGNOSIS: Left pneumothorax SURGEON: Chago Peterson M.D. ANESTHESIA: 1% lidocaine local anesthesia with propofol sedation. INDICATIONS: The patient is a 62-year-old morbidly obese woman who yesterday underwent tracheostomy and left subclavian central line placement. Post-procedure film showed pneumothorax that was adequat naina evacuated by placement of a small bore catheter, but on this morning's x-ray, she had recurrence of that pneumothorax without any obvious problems related to the existing small bore catheter system per se. FINDINGS: Air lucio heard upon entering the chest, a good reexpansion of the lung and post-procedure chest x-ray. DESCRIPTION OF PROCEDURE: After informed consent was obtained from the patient's family, additional propofol was given to sedate the patient more deeply. The landmarks of the left chest wall were asse ssed with bedside nurse assisting with retraction of her pendulous breast. The left lateral chest wa ll was prepped and draped in sterile fashion. A 1% lidocaine was used to infiltrate the skin and sub cutaneous tissues little below the inframammary crease at about the level of the nipple line and the xiphoid. The skin was sharply incised and a subcutaneous tract was developed superiorly and posterio rly. Additional lidocaine was infiltrated over the superior rib margin at that level and blunt disse ction was used in her pleural space and air lucio has heard upon entering the chest. A 28 [place] ches t tube was placed through the thoracostomy incision and advanced. It was secured to the skin with morrissey ture and connected to closed suction drainage. The chest tube was dressed and a post-procedure chest x-ray was obtained which showed adequate reexpansion of the lung.
--- NOTE | 2017-08-07 13:21 | CON ---
DATE OF CONSULTATION: 08/07/2017 REQUESTING PHYSICIAN: Dr. Quiñones. CHIEF COMPLAINT: Chest tube management. HISTORY OF PRESENT ILLNESS: The patient is a morbidly obese 62-year-old woman with respirat ory failure. She underwent tracheostomy and left subclavian central line placement yesterday. Post- procedure film showed a left-sided pneumothorax, which was adequately evacuated with placement of a s mall bore chest catheter. I was consulted for management of it, but on this morning's chest x-rays, she had reoccurrence of her left-sided pneumothorax without any obvious problem related to the small bore catheter. 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 ALLERGIES: Reported as PENICILLIN and AUGMENTIN. HOME MEDICATIONS: Listed as Zocor, potassium, Protonix, Synthroid, Lasix, iron sulfate, Celexa, aspi rin, Eliquis, prednisone, clindamycin, and vitamin supplements. PHYSICAL EXAMINATION: GENERAL: She has a tracheostomy in place, sedated and on ventilator. VITAL SIGNS: Heart rate 74, blood pressure 117/65, O2 sats are in the mid to high 90s. She is morbi dly obese. LUNGS: Has a central line and a small bore catheter in place in the left chest wall with absent javi th sounds on the left side, but no obvious tracheal shift. ABDOMEN: Soft and nontender. IMAGING DATA: Chest x-ray shows large left-sided pneumothorax. IMPRESSION AND PLAN: Recurrent left-sided pneumothorax after initially successful reexpansion with a small bore catheter. We will place a 28 [place] chest tube.
[2017-08-07] MEDS ORDERED: cefTRIAXone\\ROCEPHIN 1 GM in Sodium Chloride 0.9% 100 ML IVPB SCH (16:00)
[2017-08-08 04:29] LABS: #Eosinphils 0.2 thou/uL (0.0-0.7); #Lymphocytes 1.7 thou/uL (1.20-3.40); #Monocytes 0.9 thou/uL (0.11-0.59); #Neutrophils 3.7 thou/uL (1.40-6.50); %Basophils 0.7 % (0.0-1.0); %Eosinophils 3.3 % (0.0-10.0); %Lymphocytes 25.5 % (21.0-51.0); %Monocytes 13.5 % (0.0-10.0); Hemoglobin 7.9 g/dL (12.0-16.0); Mean Corpuscular HGB CONC 31.4 g/dL (32.0-36.0); Mean Corpuscular Hemoglobin 33.3 pg (27.0-31.0); Mean Platelet Volume 9.6 fL (7.4-10.4); Platelet Count 77 thou/uL (130-400); RBC Distribution Width 17.8 % (11.5-14.5); Red Blood Cell (RBC) Count 2.37 mill/uL (4.20-5.40); White Blood Cell (WBC) Count 6.5 thou/uL (4.8-10.8)
[2017-08-08 04:37] LABS: Anion Gap 8 mmol/L (10-20); BUN (Urea Nitrogen) 17 mg/dL (9.8-20.1); Calc. Creatinine Clearance 205 mL/min (70-130); Calcium 7.5 mg/dL (7.8-10.44); Carbon Dioxide 33 mmol/L (22-29); Chloride 101 mmol/L (98-107); Estimated GFR-MDRD Greater than 90; Glucose 77 mg/dL (70-105); Magnesium 1.3 mg/dL (1.6-2.6); Phosphorus 2.5 mg/dL (2.3-4.7); Potassium 3.6 mmol/L (3.5-5.1); Sodium 138 mmol/L (136-145)
[2017-08-08] MEDS ORDERED: Magnesium Sulfate 3 GM in Sodium Chloride 0.9% 100 ML IVPB SCH (05:45)
[2017-08-08] MEDS: Levothyroxine 100 MCG SDV IVP SCH (06:11)
[2017-08-08] MEDS: Furosemide 20 MG/2 ML VIAL SLOW IVP SCH (06:12)
[2017-08-08 06:39] LABS: ALT (SGPT) 11 U/L (8-55); AST (SGOT) 30 U/L (5-34); Albumin 1.9 g/dL (3.5-5.0); Alkaline Phosphatase 122 U/L (40-150); Bilirubin, Direct 0.7 mg/dL (0.1-0.3)
[2017-08-08] MEDS: Lisinopril 2.5 MG TAB PO SCH (07:56)
[2017-08-08] MEDS: Potassium Chloride 20 MEQ TAB PO SCH (07:57)
[2017-08-08] MEDS: Famotidine 40 MG/4 ML VIAL SLOW IVP SCH (07:59)
--- NOTE | 2017-08-08 09:34 | PDOC.FM ---
- Subjective Subjective: Patient on cpap and is arousable and following commands. She had UTI yesterday and rocephin initiated. - Objective MAR Reviewed: Yes Vital Signs & Weight: Vital Signs (12 hours) Temp Pulse Resp BP Pulse Ox 08/08/17 07:56 65 85/35 L 08/08/17 06:05 74 101/48 L 08/08/17 06:04 92 19 96 08/08/17 06:00 20 08/08/17 04:00 97.9 F 18 08/08/17 02:00 15 08/08/17 01:55 65 08/08/17 01:54 65 23 H 97 08/08/17 00:00 21 H 08/07/17 22:39 71 08/07/17 22:00 21 H Weight Admit Weight 151.046 kg Weight 148 kg Most Recent Monitor Data Heart Rate from ECG 71 NIBP 101/48 NIBP BP-Mean 67 Respiration from ECG 26 SpO2 96 I&O: 08/07/17 08/08/17 08/09/17 06:59 06:59 06:59 Intake Total 1850 1765 Output Total 1625 1620 Balance 225 145 Result Diagrams: 08/08/17 03:30 08/08/17 03:30 <Mary Fernandez - Last Filed: 08/08/17 09:32> - Objective Vital Signs & Weight: Vital Signs (12 hours) Temp Pulse Resp BP Pulse Ox 08/08/17 15:34 72 161/38 H 08/08/17 14:00 21 H 08/08/17 12:20 58 L 99/50 L 08/08/17 12:19 58 L 17 96 08/08/17 12:00 23 H 08/08/17 11:00 99.1 F 08/08/17 10:00 21 H 08/08/17 09:35 61 98/50 L 08/08/17 08:00 99.1 F 64 19 97 08/08/17 07:56 65 85/35 L 08/08/17 06:05 74 101/48 L 08/08/17 06:04 92 19 96 08/08/17 06:00 20 Weight Admit Weight 151.046 kg Weight 148 kg Most Recent Monitor Data Heart Rate from ECG 67 NIBP 94/54 NIBP BP-Mean 64 Respiration from ECG 20 SpO2 96 I&O: 08/07/17 08/08/17 08/09/17 06:59 06:59 06:59 Intake Total 1850 1765 Output Total 1625 1620 1575 Balance 225 145 -1575 Result Diagrams: 08/08/17 03:30 08/08/17 03:30 <Maribel Siddiqui - Last Filed: 08/08/17 17:21> Phys Exam - Physical Examination Constitutional: NAD Respiratory: no wheezing, no rales, no rhonchi, clear to auscultation bilateral Cardiovascular: RRR, no significant murmur Gastrointestinal: soft, non-tender Musculoskeletal: no edema Neurological: non-focal <Mary Fernandez - Last Filed: 08/08/17 09:32> Dx/Plan (1) Acute on chronic respiratory failure with hypoxia and hypercapnia Code(s): J96.21 - ACUTE AND CHRONIC RESPIRATORY FAILURE WITH HYPOXIA; J96.22 - ACUTE AND CHRONIC RESPIRATORY FAILURE WITH HYPERCAPNIA Status: Chronic Plan: Patient now s/p trach after acute obtundation during hospitalization. She desires placement at [facility], awaiting placement. (2) UTI (urinary tract infection) Status: Acute QualifierTitle: Urinary tract infection type: acute cystitis Hematuria presence: with hematuria Qualified Code(s): N30.01 - Acute cystitis with hematuria Plan: Patient initiated on rocephin. Culture growing E. coli. Await sensitivities. (3) Pneumothorax on left Code(s): J93.9 - PNEUMOTHORAX, UNSPECIFIED Status: Acute Plan: s/p chest tube to suction. (4) Atypical chest pain Code(s): R07.89 - OTHER CHEST PAIN Status: Resolved Plan: Nuc stress without evidence for reversible ischemia. Likely 2/2 breast pain and questionable cellulitis. (5) Pain of right breast Code(s): N64.4 - MASTODYNIA Status: Acute Plan: Recommend outpatient repeat of US and mammogram. (6) Hypoventilation associated with obesity Code(s): E66.2 - MORBID (SEVERE) OBESITY WITH ALVEOLAR HYPOVENTILATION Status : Chronic (7) Pancytopenia Code(s): D61.818 - OTHER PANCYTOPENIA Status: Chronic Plan: unclear etiology, stable. follow up outpatient. (8) Diastolic CHF Code(s): I50.30 - UNSPECIFIED DIASTOLIC (CONGESTIVE) HEART FAILURE Status: Chronic QualifierTitle: Congestive heart failure chronicity: acute on chronic Qualified Code(s): I50.33 - Acute on chronic diastolic (congestive) heart failure (9) KATE (obstructive sleep apnea) Code(s): G47.33 - OBSTRUCTIVE SLEEP APNEA (ADULT) (PEDIATRIC) Status: Chronic (10) Paroxysmal a-fib Code(s): I48.0 - PAROXYSMAL ATRIAL FIBRILLATION Status: Chronic Plan: Will need to restart eliquis likely 48 hours post trach. <Mary Fernandez - Last Filed: 08/08/17 09:32> Attending Addendum - Attending Addendum I personally evaluated the patient and discussed the management with Dr. Fernandez. I agree with the History, Examination, Assessment and Plan documented above with any addition or exceptions noted below. The patient has been started on Rocephin for UTI. Patient has chest tube in place. GI is being consulted for PEG tube placement. Pt will need placement. Continue supportive care. <Maribel Siddiqui - Last Filed: 08/08/17 17:21>
[2017-08-08] MEDS ORDERED: Potassium Chloride 40 MEQ in Premix Bag 1 BAG IVPB SCH (10:30)
--- NOTE | 2017-08-08 11:18 | PRG ---
DATE OF SERVICE: 08/08/2017 SERVICE: Pulmonary Medicine. INTERVAL HISTORY: The patient is doing okay from a respiratory standpoint. She is on pressure suppo rt ventilation. With stimulation, she will wake up and follow some simple commands. She remains a l ittle hypersomnolent, and lethargic. She is extraordinarily weak. Otherwise, there has been no inte rval change to her condition. PHYSICAL EXAMINATION: VITAL SIGNS: Afebrile with a T-max of 99.9, pulse 61, blood pressure 98/50, respirations 19, saturat ion 96% on 31% FiO2 and a PEEP of 5. GENERAL: The patient has a trach. She is under the influence of no sedation. HEENT: Normocephalic, atraumatic. Sclerae are white. Conjunctivae pink. Oral and nasal mucosae ar e moist without lesions. LUNGS: Decent air entry. Rhonchi and crackles are present. HEART: Normal rate, regular. ABDOMEN: Soft, nontender, nondistended. Bowel sounds are positive. MUSCULOSKELETAL: No cyanosis or clubbing. She has got diffuse 1-2+ pitting throughout. GENITOURINARY: Magana catheter in place. NEUROLOGIC: Grossly nonfocal. LABORATORY DATA: WBC 6.5, hemoglobin 7.9, platelets 77,000. Basic metabolic profile is completely u nremarkable. Bicarbonate is 33 and roughly stable, potassium 3.6, magnesium 1.3, phosphorus 2.5. Li abdoul function studies are essentially unremarkable. Albumin 1.9. Urine culture is growing E. coli, w hich was collected today. IMAGING: Chest x-ray demonstrates good placement of tracheostomy. Thoracostomy drain on the right i s present. Improved aeration is occurring in the left lung. There are no focal abnormalities in the right lung. Cardiac silhouette is large, but likely accentuated by low lung volumes. ASSESSMENT: 1. Acute on chronic hypoxic and hypercapnic respiratory failure. 2. Obesity hypoventilation syndrome. 3. Obstructive sleep apnea, severe. 4. Acute on chronic diastolic heart failure. 5. Urinary tract infection. PLAN: We will initiate antibiotics, directed a pathology. Magnesium and potassium will be replac ed today. We will continue to wean gently our ventilator support. The patient is stable at this poi nt for transition out of the ICU to the LTACH. We will gently diurese the patient to euvolemia. At this point, there is no need to be too terribly aggressive. Pulmonary Critical Care will continue to follow.
--- NOTE | 2017-08-08 11:27 | RAD ---
PORTABLE ICU CHEST: INDICATIONS: Ventilated patient. COMPARISON: The previous day. FINDINGS: Interval improvement with regard to extensive bilateral pulmonary parenchymal opacities, with mild re sidua remaining. Tracheostomy remains. There is enlargement of the cardiac silhouette again seen. Left subclavian venous catheter remains. Left thoracostomy tube is grossly stable. No significant p neumothorax evident. IMPRESSION: Improving bilateral pulmonary parenchymal opacities. POS: ERNESTINA
[2017-08-08] MEDS: Dextrose 5 % And 0.9 % NaCl 1,000 ML IV SCH (11:42)
[2017-08-08] MEDS ORDERED: Midazolam HCl 2 mg/2 ml Vial ONE (14:35)
--- NOTE | 2017-08-08 15:00 | CON ---
DATE OF CONSULTATION: 08/08/2017 HISTORY OF PRESENT ILLNESS: The patient is a 62-year-old female, who presented on 7 with shortness of breath and respiratory failure. She has a history of COPD, congestive heart fail ure, and underwent a tracheostomy. The patient had a Dobbhoff attempted in both nares, which caused her to have bleeding and they were unsuccessful. PAST MEDICAL HISTORY: Morbid obesity, hypothyroidism, paroxysmal atrial fibrillation, obstructive sl eep apnea, congestive heart failure, hyperlipidemia. PAST SURGICAL HISTORY: Includes cholecystectomy and . ALLERGIES: PENICILLIN and AUGMENTIN. MEDICATIONS ON ADMISSION: Proventil, Nicoderm, Eliquis, simvastatin, Lasix, tramadol, Protonix, Tyle nol, Celexa, iron, Advair, levothyroxine, aspirin, lisinopril, folic acid, vitamin B12, and Keflex. SOCIAL HISTORY, FAMILY HISTORY, AND REVIEW OF SYSTEMS: Unobtainable. PHYSICAL EXAMINATION: GENERAL: Shows a morbidly obese female. VITAL SIGNS: Pulse is 60, respiratory rate 17, blood pressure 90/45. HEENT: Shows some bandages in the nose. NECK: Supple, a recently placed tracheostomy is noted. CHEST: Clear. CARDIOVASCULAR: Regular rate and rhythm. ABDOMEN: Obese, nontender, without organomegaly or masses. RECTAL: Deferred. EXTREMITIES: Normal. NEUROLOGIC: Nonfocal. LABORATORY DATA: Shows a white blood cell count 6.5, hemoglobin 7.9, hematocrit 25.1 with MCV of 106 . Chemistries significant for a CO2 of 33, calcium 7.5, magnesium 1.3, albumin 1.9. ASSESSMENT: 1. Respiratory failure, status post tracheostomy. 2. Chronic obstructive pulmonary disease. 3. Obstructive sleep apnea. 4. Congestive heart failure. 5. Diabetes mellitus. 6. Malnutrition. 7. Failed Dobhoff placement. 8. Cirrhosis by CT scan - no ascites, therefore PEG would not necessarily be contraindicated. RECOMMENDATIONS: We would consider percutaneous endoscopic gastrostomy rather than a Dobbhoff placem ent or nasogastric tube placement. The Dobbhoff or nasogastric tube would probably have to go throug h the mouth. Considering her long-term problems with respiratory failure and medical problems that P EG placement would be the best option.
[2017-08-08] MEDS ORDERED: cefTRIAXone\\ROCEPHIN 1 GM, Syringe 0.4 ML in Sterile Water 9.6 ML SLOW IVP SCH (16:00)
--- NOTE | 2017-08-08 16:38 | RAD ---
FRONTAL VIEW ABDOMEN: Clinical history: Confirmation of tube placement. FINDINGS: There is a partially imaged enteric catheter with metallic stylet terminating at the medial left uppe r abdomen. Partially imaged left lung base reveals patchy density. Findings incompletely assessed. IMPRESSION: Metallic stylet of the enteric catheter projects at the medial left upper abdomen. POS: ERNESTINA
--- NOTE | 2017-08-08 21:18 | OP ---
PREOPERATIVE DIAGNOSIS: Failed Dobbhoff tube placement. PROCEDURE IN DETAIL: After informed consent was obtained, the patient was placed in the supine posit ion. Anesthesia administered per the Anesthesia Department. Forward-viewing endoscope was inserted into the esophagus under direct visualization with ease and passed to the second portion of the duode num with ease. Second portion of the duodenum and duodenal bulb were normal. The pylorus, antrum, b noni, fundus, and cardia were normal. Retroflexion of the stomach was normal. Esophagus was normal t hroughout. Under direct visualization with ease, the Dobbhoff was placed in the nares and passed int o the esophagus. It was placed 80 cm. ASSESSMENT: Successful Dobbhoff tube placement. RECOMMENDATIONS: 1. KUB. 2. Once KUB confirms Dobbhoff in the stomach, then can proceed with use. 3. Speech pathology consultation.
[2017-08-09] MEDS: Acetaminophen 650 MG/20.3 ML UDCUP PER TUBE PRN (03:57)
[2017-08-09 04:55] LABS: Anion Gap 9 mmol/L (10-20); BUN (Urea Nitrogen) 17 mg/dL (9.8-20.1); Calc. Creatinine Clearance 206 mL/min (70-130); Calcium 7.7 mg/dL (7.8-10.44); Carbon Dioxide 32 mmol/L (22-29); Chloride 101 mmol/L (98-107); Estimated GFR-MDRD 88; Glucose 103 mg/dL (70-105); Potassium 3.6 mmol/L (3.5-5.1); Sodium 138 mmol/L (136-145)
[2017-08-09 05:14] LABS: Band 2 % (5-11); Eosinophils 9 % (0-10); Hypochromia SLIGHT = 6-15 cells (100X) (0-5/hpf); Lymphocytes 18 % (21-51); MDiff Complete? YES; Macrocytosis SLIGHT = 6-15 cells (100X) (0-5/hpf); Mean Corpuscular HGB CONC 30.7 g/dL (32.0-36.0); Mean Corpuscular Hemoglobin 32.7 pg (27.0-31.0); Mean Platelet Volume 9.4 fL (7.4-10.4); Monocytes 13 % (0-10); Neutrophil 57 % (42-75); PLT Morphology Comment Appears Decreased; Platelet Count 82 thou/uL (130-400); RBC Distribution Width 17.7 % (11.5-14.5); Red Blood Cell (RBC) Count 2.44 mill/uL (4.20-5.40); White Blood Cell (WBC) Count 6.1 thou/uL (4.8-10.8)
[2017-08-09] MEDS: Furosemide 20 MG/2 ML VIAL SLOW IVP SCH (06:10)
[2017-08-09] MEDS: Levothyroxine 100 MCG SDV IVP SCH (06:47)
[2017-08-09 06:57] LABS: Actual Bicarbonate (HCO3a) 32.6 mEq/L (22-26); CO2 Tension 53.9 mmHg (35.0-45.0); Calcium, Ionized 1.1 mmol/L (1.12-1.30); Hematocrit-ABG 26.8 % (36.0-47.0); Hemoglobin (Hb) 7.6 g/dL (12.0-16.0); O2 Tension (PaO2) 76.7 mmHg (80.0-100.0)
[2017-08-09 07:01] LABS: Puncture Site RR
[2017-08-09 07:02] LABS: ALV-art Gradient 76.025 (0-20)
--- NOTE | 2017-08-09 07:15 | PDOC.FM ---
- Subjective Subjective: Stable and interactive this morning. She complained of some leg pain overnight for which she received Tylenol. Today her primary complaint is positioning in the bed. She denies any sensation of shortness of breath or abdominal pain. - Objective MAR Reviewed: Yes Vital Signs & Weight: Vital Signs (12 hours) Temp Pulse Resp Pulse Ox 08/09/17 06:00 21 H 08/09/17 04:00 22 H 08/09/17 03:00 98.6 F 08/09/17 02:00 21 H 08/09/17 00:00 21 H 08/08/17 23:58 63 15 100 08/08/17 23:00 98 F 08/08/17 22:00 19 08/08/17 20:00 98.6 F 64 19 98 08/08/17 19:32 71 17 97 Weight Admit Weight 151.046 kg Weight 147.2 kg Most Recent Monitor Data Heart Rate from ECG 62 NIBP 97/47 NIBP BP-Mean 60 Respiration from ECG 20 SpO2 98 I&O: 08/08/17 08/09/17 08/10/17 06:59 06:59 06:59 Intake Total 1765 1357 Output Total 1620 2360 Balance 145 -1003 Result Diagrams: 08/09/17 03:25 08/09/17 03:25 Radiology Reviewed by me: Yes <Yareli Menjivar - Last Filed: 08/09/17 11:22> - Objective Vital Signs & Weight: Vital Signs (12 hours) Temp Pulse Pulse Pulse Resp BP BP 08/09/17 13:00 23 H 08/09/17 12:28 66 103/45 L 08/09/17 12:00 98.9 F 19 08/09/17 11:00 12 08/09/17 10:57 61 87/38 L 08/09/17 10:00 25 H 08/09/17 09:00 16 08/09/17 08:14 68 67 89/46 L 08/09/17 08:00 99.0 F 63 11 L 08/09/17 07:19 59 L 97/47 L 08/09/17 06:00 21 H 08/09/17 04:00 22 H 08/09/17 03:00 98.6 F 08/09/17 02:00 21 H BP Pulse Ox Pulse Ox Pulse Ox 08/09/17 13:00 08/09/17 12:28 08/09/17 12:00 08/09/17 11:00 08/09/17 10:57 08/09/17 10:00 08/09/17 09:00 08/09/17 08:14 108/53 L 100 96 08/09/17 08:00 100 08/09/17 07:19 08/09/17 06:00 08/09/17 04:00 08/09/17 03:00 08/09/17 02:00 Weight Admit Weight 151.046 kg Weight 147.2 kg Most Recent Monitor Data Heart Rate from ECG 63 NIBP 85/40 NIBP BP-Mean 53 Respiration from ECG 19 SpO2 98 I&O: 08/08/17 08/09/17 08/10/17 06:59 06:59 06:59 Intake Total 1765 1357 32 Output Total 1620 2360 1091 Balance 855 -1003 -1059 Result Diagrams: 08/09/17 03:25 08/09/17 03:25 <Greg Ware - Last Filed: 08/09/17 14:14> Phys Exam - Physical Examination Constitutional: NAD HEENT: sclera anicteric Trach in place, on ventilator, NG in place Neck: supple rhonchi in upper lobes BL Cardiovascular: no significant murmur irregularly irregular Gastrointestinal: soft, non-tender, positive bowel sounds Musculoskeletal: no edema, pulses present moving all extremities spontaneously Neurological: non-focal, moves all 4 limbs Psychiatric: normal affect Skin: no rash Deviation from normal: mild brusing on upper extremities <Yareli Menjivar - Last Filed: 08/09/17 11:22> Dx/Plan (1) Pain of right breast Code(s): N64.4 - MASTODYNIA Status: Acute (2) Pneumothorax on left Code(s): J93.9 - PNEUMOTHORAX, UNSPECIFIED Status: Acute (3) Atypical chest pain Code(s): R07.89 - OTHER CHEST PAIN Status: Resolved (4) UTI (urinary tract infection) Status: Acute QualifierTitle: Urinary tract infection type: acute cystitis Hematuria presence: with hematuria Qualified Code(s): N30.01 - Acute cystitis with hematuria (5) Acute on chronic respiratory failure with hypoxia and hypercapnia Code(s): J96.21 - ACUTE AND CHRONIC RESPIRATORY FAILURE WITH HYPOXIA; J96.22 - ACUTE AND CHRONIC RESPIRATORY FAILURE WITH HYPERCAPNIA Status: Chronic (6) Diastolic CHF Code(s): I50.30 - UNSPECIFIED DIASTOLIC (CONGESTIVE) HEART FAILURE Status: Chronic QualifierTitle: Congestive heart failure chronicity: acute on chronic Qualified Code(s): I50.33 - Acute on chronic diastolic (congestive) heart failure (7) Hypoventilation associated with obesity Code(s): E66.2 - MORBID (SEVERE) OBESITY WITH ALVEOLAR HYPOVENTILATION Status : Chronic (8) KATE (obstructive sleep apnea) Code(s): G47.33 - OBSTRUCTIVE SLEEP APNEA (ADULT) (PEDIATRIC) Status: Chronic (9) Pancytopenia Code(s): D61.818 - OTHER PANCYTOPENIA Status: Chronic (10) Paroxysmal a-fib Code(s): I48.0 - PAROXYSMAL ATRIAL FIBRILLATION Status: Chronic - Plan Plan: 1. Acute on chronic respiratory failure with hypoxia and hypercapnea - Tracheostomy in place on pressure support ventilation - Per pulm, stable for transfer to [facility] and will await placement at [facility] - Appreciate Dr. Ac and Dr. Quiñones's assistance 2. UTI - E. coli awaiting sensitivities - Urmila (08/08/2017) 3. Pneumothorax on L - Chest tube in place - Output 350 mL sanguinous fluid - Appreciate Dr. Aranda's assistance - Put to water seal this morning - Will continue to monitor 4. Atypical chest pain - Nuclear stress test without evidence of reversible ischemia on admission - No chest pain currently 5. Pain of R breast - F/u outpatient US and mammogram recommended - Denies any pain currently 6. Pancytopenia - Stable - Continue to monitor - Thrombocytopenia places at greater bleeding risk, will continue to hold Eliquis with immature trach and possible need for further procedures 7. Diastolic CHF - Gentle diuresis, per pulmonology - Monitor fluid balance 8. Paroxysmal a fib - Rate-controlled - HAS-BLED 4 currently and at high risk for bleeding - Will hold Eliquis at this time and consider resumption when safe 9. Feeding - Started via NG yesterday - Appreciate Dr. Desai's assistance - Consideration for PEG tube, discussed with family this morning PPX: Famotidine <Yareli Menjivar - Last Filed: 08/09/17 11:22> Attending Addendum - Attending Addendum I personally evaluated the patient and discussed the management with Dr. Menjivar. I agree with and repeated the History, Examination, Assessment and Plan documented above with any addition or exceptions noted below. s/p Trach with improving resp failure s/p PTX with CT now on water seal, pressures have decreased this morning, no PTX on CXR, managed by CTSx CA-UTI on bactrim, multidrug resistant, will d/c as soon as possible and no longer critically il <Greg Ware - Last Filed: 08/09/17 14:14>
--- NOTE | 2017-08-09 08:03 | RAD ---
PORTABLE SEMIUPRIGHT FRONTAL CHEST RADIOGRAPH: DATE: 08/09/17. COMPARISON: 08/08/17. HISTORY: Ventilated patient. FINDINGS: There is a Dobbhoff tube in place. The catheter tubing is incompletely imaged. It likely curls with in the stomach, with the distal tip in the region of the gastric fundus and/or gastroesophageal junct ion. There is a tracheostomy tube, left-sided vascular catheter, and left-sided chest tube in stable position. There is stable prominence of the cardiac silhouette and pulmonary vascular congestion with nonspecif ic increased perihilar interstitial density, primarily left-sided. IMPRESSION: Lines and tubes as above. Perihilar interstitial prominence, primarily left-sided, nonspecific. POS: HYACINTH
[2017-08-09] MEDS: Lisinopril 2.5 MG TAB PO SCH (08:14)
[2017-08-09] MEDS: Famotidine/PF 20 mg/2ml Vial SLOW IVP SCH (09:08)
--- NOTE | 2017-08-09 12:27 | PRG ---
DATE OF SERVICE: 03/09/2018 She is in the ICU. Trach and feeding tube in place. Morbidly obese. She opens her eyes. She denie s any pain. PHYSICAL EXAMINATION: VITAL SIGNS: Blood pressure 97/40, pulse 60, sats 97%. I's and O's are 1357 in, 236 out. CHEST: Chest revealed decreased breath sounds, no wheezing. CARDIAC: Normal S1, S2. No gallops. ABDOMEN: Soft, no masses. LABORATORY: White count 6,000, H&H 8 and 25, platelet count 82, 57 segs, pO2 76, pCO2 53, pH 7.40. has equalized on ceftriaxone which she may be resistant to. X-ray shows left-sided infiltrate, a trachea in place. IMPRESSION: 1. Morbid obesity. 2. Respiratory failure. 3. Urinary tract infection. 4. Severe deconditioning. 5. Diastolic dysfunction. 6. Chronic obstructive pulmonary disease. 7. Thrombocytopenia. 8. Depression. 9. Cerebrovascular accident. 10. Diabetes. PLAN: I doubt that she is weanable to the extent she can be off of the vent for a period of time. T he best option at this time is to PEG her. Antibiotic may need to be adjusted. PT, nutrition and morrissey pportive care. I will discuss with primary care physician. One-half hour critical care time.
[2017-08-09] MEDS: Sulfamethoxazole/Trimethoprim 160 MG in Dextrose 5% in Water 250 ML IVPB SCH ×2 (13:01)
[2017-08-09] MEDS: Ondansetron HCl/PF 4 MG/2 ML Vial IVP PRN (18:03)
--- NOTE | 2017-08-09 18:56 | PRG ---
DATE OF SERVICE: 08/09/2017 Ms. Springer is doing well after tracheostomy tube and central line. Her tracheostomy site looks good . Her abdomen is soft and nontender. At this point, I will see her on an as needed basis. Please c all if needed.
--- NOTE | 2017-08-09 20:11 | RAD ---
PORTABLE CHEST ONE VIEW 08/09/17 at 5:57 p.m. HISTORY: Respiratory failure. FINDINGS/IMPRESSION: No significant interval changes since earlier exam of 4:08 a.m. from same date. POS: HYACINTH
[2017-08-10] MEDS: Sulfamethoxazole/Trimethoprim 160 MG in Dextrose 5% in Water 250 ML IVPB SCH ×4 (02:24→13:01)
[2017-08-10] MEDS: Dextrose 5 % And 0.9 % NaCl 1,000 ML IV SCH (02:26)
[2017-08-10 05:15] LABS: Anion Gap 8 mmol/L (10-20); BUN (Urea Nitrogen) 17 mg/dL (9.8-20.1); Calc. Creatinine Clearance 196 mL/min (70-130); Calcium 7.8 mg/dL (7.8-10.44); Carbon Dioxide 33 mmol/L (22-29); Chloride 100 mmol/L (98-107); Estimated GFR-MDRD 84; Glucose 116 mg/dL (70-105); Potassium 3.5 mmol/L (3.5-5.1); Sodium 137 mmol/L (136-145)
[2017-08-10] MEDS: Levothyroxine 100 MCG SDV IVP SCH (05:34)
[2017-08-10 05:52] LABS: Band 5 % (5-11); Eosinophils 1 % (0-10); Hemoglobin 8.2 g/dL (12.0-16.0); Lymphocytes 34 % (21-51); MDiff Complete? YES; Mean Corpuscular HGB CONC 32.1 g/dL (32.0-36.0); Mean Corpuscular Hemoglobin 34.2 pg (27.0-31.0); Mean Platelet Volume 9.3 fL (7.4-10.4); Monocytes 8 % (0-10); Neutrophil 52 % (42-75); PLT Morphology Comment Appears Decreased; Platelet Count 82 thou/uL (130-400); RBC Distribution Width 17.3 % (11.5-14.5); Red Blood Cell (RBC) Count 2.39 mill/uL (4.20-5.40); White Blood Cell (WBC) Count 5.8 thou/uL (4.8-10.8)
--- NOTE | 2017-08-10 07:23 | PDOC.FM ---
- Subjective Subjective: Feeling well this morning. No complaints and denies any chest or abdominal pain. - Objective MAR Reviewed: Yes Vital Signs & Weight: Vital Signs (12 hours) Temp Pulse Resp Pulse Ox 08/10/17 06:00 24 H 08/10/17 04:00 24 H 08/10/17 03:00 98.8 F 08/10/17 02:00 23 H 08/10/17 00:00 16 08/09/17 23:48 68 22 H 98 08/09/17 23:00 98.8 F 08/09/17 22:00 26 H 08/09/17 20:00 98.4 F 64 24 H 96 Weight Admit Weight 151.046 kg Weight 146.8 kg Most Recent Monitor Data Heart Rate from ECG 65 NIBP 93/50 NIBP BP-Mean 57 Respiration from ECG 21 SpO2 98 I&O: 08/09/17 08/10/17 08/11/17 06:59 06:59 06:59 Intake Total 1357 1740 Output Total 2360 1518 Balance -1003 222 Result Diagrams: 08/10/17 04:10 08/10/17 04:10 Radiology Reviewed by me: Yes <Yareli Menjivar - Last Filed: 08/10/17 10:34> - Objective Vital Signs & Weight: Vital Signs (12 hours) Temp Pulse Resp BP Pulse Ox 08/10/17 10:25 96 08/10/17 10:00 24 H 08/10/17 09:00 22 H 08/10/17 08:00 23 H 08/10/17 07:41 99.5 F 79 28 H 96 08/10/17 07:30 73 87/43 L 08/10/17 06:00 24 H 08/10/17 04:00 24 H 08/10/17 03:00 98.8 F 08/10/17 02:00 23 H 08/10/17 00:00 16 08/09/17 23:48 68 22 H 98 Weight Admit Weight 151.046 kg Weight 146.8 kg Most Recent Monitor Data Heart Rate from ECG 81 NIBP 129/67 NIBP BP-Mean 78 Respiration from ECG 23 SpO2 96 I&O: 08/09/17 08/10/17 08/11/17 06:59 06:59 06:59 Intake Total 1357 1740 Output Total 2360 1518 228 Balance -1003 222 -228 Result Diagrams: 08/10/17 04:10 08/10/17 04:10 <Greg Ware - Last Filed: 08/10/17 11:40> Phys Exam - Physical Examination Constitutional: NAD HEENT: moist MMs Neck: supple tracheostomy in place rhonchi diffusely, coughing up brown sputum Cardiovascular: RRR, no significant murmur currently in sinus rhythm Gastrointestinal: soft, non-tender, positive bowel sounds Musculoskeletal: no edema, pulses present Neurological: non-focal, moves all 4 limbs following commands, answers questions appropriately Psychiatric: normal affect, A&O x 3 Skin: no rash <Yareli Menjivar - Last Filed: 08/10/17 10:34> Dx/Plan (1) Pain of right breast Code(s): N64.4 - MASTODYNIA Status: Acute (2) Pneumothorax on left Code(s): J93.9 - PNEUMOTHORAX, UNSPECIFIED Status: Acute (3) Atypical chest pain Code(s): R07.89 - OTHER CHEST PAIN Status: Resolved (4) UTI (urinary tract infection) Status: Acute QualifierTitle: Urinary tract infection type: acute cystitis Hematuria presence: with hematuria Qualified Code(s): N30.01 - Acute cystitis with hematuria (5) Acute on chronic respiratory failure with hypoxia and hypercapnia Code(s): J96.21 - ACUTE AND CHRONIC RESPIRATORY FAILURE WITH HYPOXIA; J96.22 - ACUTE AND CHRONIC RESPIRATORY FAILURE WITH HYPERCAPNIA Status: Chronic (6) Diastolic CHF Code(s): I50.30 - UNSPECIFIED DIASTOLIC (CONGESTIVE) HEART FAILURE Status: Chronic QualifierTitle: Congestive heart failure chronicity: acute on chronic Qualified Code(s): I50.33 - Acute on chronic diastolic (congestive) heart failure (7) Hypoventilation associated with obesity Code(s): E66.2 - MORBID (SEVERE) OBESITY WITH ALVEOLAR HYPOVENTILATION Status : Chronic (8) KATE (obstructive sleep apnea) Code(s): G47.33 - OBSTRUCTIVE SLEEP APNEA (ADULT) (PEDIATRIC) Status: Chronic (9) Pancytopenia Code(s): D61.818 - OTHER PANCYTOPENIA Status: Chronic (10) Paroxysmal a-fib Code(s): I48.0 - PAROXYSMAL ATRIAL FIBRILLATION Status: Chronic - Plan Plan: 1. Acute on chronic respiratory failure with hypoxia and hypercapnea - Tracheostomy in place on pressure support ventilation - Per pulm[facility] - Appreciate Dr. Ac and Dr. Quiñones's assistance - Will attempt trach collar today 2. UTI - MDR E coli - Per sensitivities, transitioned to IV bactrim (08/09/2017) - s/p Rocephin x2 days 3. Pneumothorax on L - Chest tube in place - Continued minimal output of serosanguinous fluid - Appreciate Dr. Aranda's assistance - Put to water seal yesterday morning - Repeat CXR stable x2 - Will continue to monitor 4. Atypical chest pain - Nuclear stress test without evidence of reversible ischemia on admission - No chest pain currently apart from intermittent soreness after coughing 5. Pain of R breast - F/u outpatient US and mammogram recommended - Denies any pain currently 6. Pancytopenia - Stable - Continue to monitor - Thrombocytopenia places at greater bleeding risk, will continue to hold Eliquis with immature trach and possible need for further procedures 7. Diastolic CHF - Gentle diuresis, per pulmonology - Monitor fluid balance 8. Paroxysmal a fib - Rate-controlled - HAS-BLED 4 currently and at high risk for bleeding - Will hold Eliquis at this time and consider resumption when safe 9. Feeding - Started via NG - Appreciate Dr. Desai's assistance - Speech consult today to see if able to tolerate PO on trach/trach collar - Consideration for PEG tube, discussed with patient and family - Will order speech consult while on trach collar and appreciate Dr. Desai's assistance for consideration of PEG tube if unable to consistently tolerate PO as patient will likely not qualify for LTAC based on funding and NH will not take with Dobhoff PPX: Famotidine <Yareli Menjivar E - Last Filed: 08/10/17 10:34> Attending Addendum - Attending Addendum I personally evaluated the patient and discussed the management with Dr. Menjivar. I agree with and repeated the History, Examination, Assessment and Plan documented above with any addition or exceptions noted below. Chronic respiratory failure, stable PTX, improved, await CTSx for removal Cirrhosis, stable Chronic a.fib, stable, high hasbled and will defer anticoagulation while she is at high risk of bleeding and possible need for additional procedures CAUTI - d/c FC today PT/OT Usual regimen and precautions for HTN, HLP, HFpEF <Greg Ware - Last Filed: 08/10/17 11:40>
[2017-08-10 07:30] LABS: Actual Bicarbonate (HCO3a) 33.8 mEq/L (22-26); Base Excess (BEa) 8.1 mEq/L (0 (+/-) 2.5); CO2 Tension 55.3 mmHg (35.0-45.0); Calcium, Ionized 1.1 mmol/L (1.12-1.30); Hematocrit-ABG 26.9 % (36.0-47.0); Hemoglobin (Hb) 7.6 g/dL (12.0-16.0)
[2017-08-10 07:37] LABS: ALV-art Gradient 80.905 (0-20); Puncture Site RR
[2017-08-10] MEDS: Famotidine/PF 20 mg/2ml Vial SLOW IVP SCH (07:48)
--- NOTE | 2017-08-10 08:43 | RAD ---
SEMI UPRIGHT PORTABLE FRONTAL CHEST RADIOGRAPH: Date: 08-10-17 Comparison: 08-09-17 History: Ventilated CCU patient. FINDINGS: Dophoff tube extends into left upper quadrant. Tracheostomy tube, left vascular catheter, and left si ded chest tube again noted in stable position. There are increased linear interstitial densities in t he perihilar regions, left greater than right, nonspecific. Mild increased density in the medial left base noted, which may signify airspace disease or volume loss. No significant interval change. IMPRESSION: Stable appearance of the chest as detailed above. POS: [facility]
--- NOTE | 2017-08-10 09:36 | PRG ---
DATE OF SERVICE: 08/10/2017 She is intubated on the vent, a little bit more responsive. PHYSICAL EXAMINATION: VITAL SIGNS: Blood pressure is 94/51. Sats 96%, respirations 18. CHEST: Bilateral wheezing and rhonchi. CARDIAC: Normal S1-S2. No gallops. ABDOMEN: Soft. No masses. LABORATORY: White count 5000, H&H 8 and 24, platelet count is low at 82, PO2 of 71, PCO2 50% on rate of 4. Electrolytes are normal. Bicarb is 33. Urine has Escherichia coli. X-ray shows a left-sided infiltrate, a little bit more pronounced on the right side. IMPRESSION: 1. Morbid obesity. 2. Respiratory failure. 3. Urinary tract infection sepsis. 4. Status post trach. 5. Chronic obstructive pulmonary disease. PLAN: Will try and PEG her today, eventually placement. Try trach collar. I will follow. One-half hour critical care time.
[2017-08-10] MEDS: Acetaminophen 650 MG/20.3 ML UDCUP PER TUBE PRN (20:34)
[2017-08-11] MEDS: Sulfamethoxazole/Trimethoprim 160 MG in Dextrose 5% in Water 250 ML IVPB SCH ×4 (01:18→13:23)
[2017-08-11] MEDS: Acetaminophen 650 MG/20.3 ML UDCUP PER TUBE PRN ×2 (01:21→20:49)
[2017-08-11] MEDS: Levothyroxine 100 MCG SDV IVP SCH (05:22)
[2017-08-11 05:25] LABS: Anion Gap 7 mmol/L (10-20); BUN (Urea Nitrogen) 18 mg/dL (9.8-20.1); Calc. Creatinine Clearance 202 mL/min (70-130); Calcium 7.9 mg/dL (7.8-10.44); Carbon Dioxide 34 mmol/L (22-29); Chloride 100 mmol/L (98-107); Estimated GFR-MDRD 87; Glucose 87 mg/dL (70-105); Potassium 3.8 mmol/L (3.5-5.1); Sodium 137 mmol/L (136-145)
[2017-08-11 05:52] LABS: Band 1 % (5-11); Eosinophils 2 % (0-10); Hemoglobin 8.1 g/dL (12.0-16.0); Lymphocytes 23 % (21-51); MDiff Complete? YES; Mean Corpuscular HGB CONC 30.4 g/dL (32.0-36.0); Mean Corpuscular Hemoglobin 32.5 pg (27.0-31.0); Mean Platelet Volume 9.3 fL (7.4-10.4); Monocytes 14 % (0-10); Neutrophil 60 % (42-75); PLT Morphology Comment Appears Decreased; Platelet Count 87 thou/uL (130-400); White Blood Cell (WBC) Count 6.8 thou/uL (4.8-10.8)
--- NOTE | 2017-08-11 07:48 | RAD ---
PORTABLE SEMIUPRIGHT FRONTAL CHEST RADIOGRAPH: DATE: 08/11/17. COMPARISON: 08/10/17. HISTORY: Ventilated patient. FINDINGS: Stable left chest tube, left vascular catheter, Dobbhoff feeding tube, and tracheostomy tube. Cardia c silhouette is enlarged, a stable finding. There is pulmonary vascular congestion with perihilar ai rspace disease suspected, left greater than right, similar when compared to the prior exam. IMPRESSION: No significant interval change. POS: [facility]
--- NOTE | 2017-08-11 07:52 | PDOC.FM ---
- Subjective Subjective: Feeling well this morning. Denies any chest or abdominal pain. Ms. Springer is understanding of implication for PEG tube and is in agreement. - Objective MAR Reviewed: Yes Vital Signs & Weight: Vital Signs (12 hours) Temp Pulse Resp Pulse Ox 08/11/17 06:43 63 23 H 96 08/11/17 04:00 98.4 F 08/11/17 00:16 64 22 H 93 L 08/11/17 00:00 99 F 08/10/17 20:00 98.7 F 74 24 H 95 Weight Admit Weight 151.046 kg Weight 147.9 kg Most Recent Monitor Data Heart Rate from ECG 60 NIBP 155/40 NIBP BP-Mean 77 Respiration from ECG 21 SpO2 96 I&O: 08/10/17 08/11/17 08/12/17 06:59 06:59 06:59 Intake Total 1740 1548 Output Total 1518 916 27 Balance 222 632 -27 Result Diagrams: 08/11/17 04:15 08/11/17 04:15 <Yareli Menjivar - Last Filed: 08/11/17 09:00> - Objective Vital Signs & Weight: Vital Signs (12 hours) Temp Pulse Resp Pulse Ox 08/11/17 08:00 98.6 F 08/11/17 07:49 98.6 F 68 22 H 96 08/11/17 06:43 63 23 H 96 08/11/17 04:00 98.4 F 08/11/17 00:16 64 22 H 93 L 08/11/17 00:00 99 F Weight Admit Weight 151.046 kg Weight 147.9 kg Most Recent Monitor Data Heart Rate from ECG 60 NIBP 109/49 NIBP BP-Mean 62 Respiration from ECG 22 SpO2 99 I&O: 08/10/17 08/11/17 08/12/17 06:59 06:59 06:59 Intake Total 1740 1548 62 Output Total 1518 916 198 Balance 222 632 -136 Result Diagrams: 08/11/17 04:15 08/11/17 04:15 <Greg Ware - Last Filed: 08/11/17 11:44> Phys Exam - Physical Examination Constitutional: NAD HEENT: moist MMs Neck: supple tracheostomy in place, on trach collar rhonchi in upper lobes BL Cardiovascular: RRR, no significant murmur Gastrointestinal: soft, non-tender, no distention, positive bowel sounds Musculoskeletal: no edema Neurological: non-focal, normal sensation, moves all 4 limbs Psychiatric: normal affect, A&O x 3 Skin: no rash Deviation from normal: venous stasis changes of LE BL <Yareli Menjivar - Last Filed: 08/11/17 09:00> Dx/Plan (1) Pain of right breast Code(s): N64.4 - MASTODYNIA Status: Acute (2) Pneumothorax on left Code(s): J93.9 - PNEUMOTHORAX, UNSPECIFIED Status: Acute (3) Atypical chest pain Code(s): R07.89 - OTHER CHEST PAIN Status: Resolved (4) UTI (urinary tract infection) Status: Acute QualifierTitle: Urinary tract infection type: acute cystitis Hematuria presence: with hematuria Qualified Code(s): N30.01 - Acute cystitis with hematuria (5) Acute on chronic respiratory failure with hypoxia and hypercapnia Code(s): J96.21 - ACUTE AND CHRONIC RESPIRATORY FAILURE WITH HYPOXIA; J96.22 - ACUTE AND CHRONIC RESPIRATORY FAILURE WITH HYPERCAPNIA Status: Chronic (6) Diastolic CHF Code(s): I50.30 - UNSPECIFIED DIASTOLIC (CONGESTIVE) HEART FAILURE Status: Chronic QualifierTitle: Congestive heart failure chronicity: acute on chronic Qualified Code(s): I50.33 - Acute on chronic diastolic (congestive) heart failure (7) Hypoventilation associated with obesity Code(s): E66.2 - MORBID (SEVERE) OBESITY WITH ALVEOLAR HYPOVENTILATION Status : Chronic (8) KATE (obstructive sleep apnea) Code(s): G47.33 - OBSTRUCTIVE SLEEP APNEA (ADULT) (PEDIATRIC) Status: Chronic (9) Pancytopenia Code(s): D61.818 - OTHER PANCYTOPENIA Status: Chronic (10) Paroxysmal a-fib Code(s): I48.0 - PAROXYSMAL ATRIAL FIBRILLATION Status: Chronic - Plan Plan: 1. Acute on chronic respiratory failure with hypoxia and hypercapnea - Tracheostomy in place, now on trach collar - Per pulm, stable for transfer to LTACH and will await placement, eval today - Appreciate Dr. Ac, Stephanie and Dr. Quiñones's assistance 2. UTI - MDR E coli - Per sensitivities, transitioned to IV bactrim (08/09/2017) - s/p Rocephin x2 days 3. Pneumothorax on L - Chest tube in place - Continued minimal output of serosanguinous fluid - Appreciate Dr. Aranda's assistance - On water seal - Repeat CXR stable - Will continue to monitor - Mgmt per CT surg 4. Atypical chest pain - Nuclear stress test without evidence of reversible ischemia on admission - No chest pain currently apart from intermittent soreness after coughing 5. Pain of R breast - F/u outpatient US and mammogram recommended - Denies any pain currently 6. Pancytopenia - Stable - Continue to monitor - Thrombocytopenia places at greater bleeding risk, will continue to hold Eliquis with immature trach and possible need for further procedures 7. Diastolic CHF - Gentle diuresis, per pulmonology - Monitor fluid balance - Will consider resuming lasix if BP stable today 8. Paroxysmal a fib - Rate-controlled - HAS-BLED 4 currently and at high risk for bleeding - Will hold Eliquis at this time and consider resumption when safe 9. Feeding - via NG - Appreciate Dr. Desai's assistance - Speech consult yesterday failed on ice chips, high aspiration risk - Consideration for PEG tube, discussed with patient and family - Appreciate Dr. Desai's assistance for consideration of PEG tube, planned for today at 1730 PPX: Famotidine <Yareli Menjivar - Last Filed: 08/11/17 09:00> Attending Addendum - Attending Addendum I personally evaluated the patient and discussed the management with Dr. Menjivar. I agree with and repeated the History, Examination, Assessment and Plan documented above with any addition or exceptions noted below. PEG today. May need vent overnight, if that is the case keep FC and d/c in the morning. Lovenox after procedure. <Greg Ware - Last Filed: 08/11/17 11:44>
--- NOTE | 2017-08-11 08:31 | PRG ---
DATE OF SERVICE: 08/11/2017 This morning she is awake, alert, responsive. Trach collar in place. PHYSICAL EXAMINATION: VITAL SIGNS: Pulse 66, blood pressure 170/80, sats 92%, respirations 20. I's and O's otherwise 1740 in, 1480 out. CHEST: Chest reveals decreased breath sounds, no wheezing. CARDIAC: Normal S1, S2, no gallops. ABDOMEN: Massive. NEUROLOGIC: She is awake and responsive. White count 6000, H&H 8 and 26, platelet count is 87, low. Electrolytes are normal. X-ray shows no obvious infiltrates or masses, just cardiomegaly. IMPRESSION: 1. Respiratory failure. 2. Morbid obesity. 3. Sleep apnea. 4. Severe deconditioning. 5. Urinary tract infection. PLAN: Suggest switching over to oral Bactrim. Continue neb treatments, PT, and eventually placement . One-half hour critical care time.
[2017-08-11] MEDS: Famotidine/PF 20 mg/2ml Vial SLOW IVP SCH (09:41)
[2017-08-11] MEDS ORDERED: ePHEDrine/0.9% NaCl/PF SYRINGE 50 mg/10 ml ONE (17:12)
[2017-08-11] MEDS ORDERED: PHENYLEPHRINE-NS 100 MCG/ML 10 ML SYRINGE ONE (17:12)
[2017-08-11] MEDS: Enoxaparin Sodium 40 MG/0.4 ML SYRINGE SC SCH (20:14)
[2017-08-11] MEDS ORDERED: Chloraseptic Spray 180 ml Bottle PO PRN (22:50)
[2017-08-12] MEDS: Ketorolac Tromethamine 30 MG/ML VIAL IVP PRN ×2 (00:03→14:30)
[2017-08-12] MEDS: Sulfamethoxazole/Trimethoprim 160 MG in Dextrose 5% in Water 250 ML IVPB SCH ×4 (01:22→13:25)
[2017-08-12] MEDS: Acetaminophen 650 MG/20.3 ML UDCUP PER TUBE PRN (02:49)
[2017-08-12 05:10] LABS: #Eosinphils 0.2 thou/uL (0.0-0.7); #Lymphocytes 1.7 thou/uL (1.20-3.40); #Monocytes 0.8 thou/uL (0.11-0.59); #Neutrophils 3.2 thou/uL (1.40-6.50); %Basophils 0.5 % (0.0-1.0); %Lymphocytes 28.3 % (21.0-51.0); %Monocytes 13.6 % (0.0-10.0); %Neutrophils 53.6 % (42.0-75.0); Hemoglobin 7.9 g/dL (12.0-16.0); Mean Corpuscular HGB CONC 29.9 g/dL (32.0-36.0); Mean Corpuscular Hemoglobin 31.8 pg (27.0-31.0); Platelet Count 96 thou/uL (130-400); RBC Distribution Width 17.1 % (11.5-14.5); Red Blood Cell (RBC) Count 2.48 mill/uL (4.20-5.40)
[2017-08-12 05:26] LABS: Anion Gap 8 mmol/L (10-20); BUN (Urea Nitrogen) 16 mg/dL (9.8-20.1); Calc. Creatinine Clearance 184 mL/min (70-130); Calcium 8.1 mg/dL (7.8-10.44); Carbon Dioxide 33 mmol/L (22-29); Chloride 101 mmol/L (98-107); Estimated GFR-MDRD 78; Glucose 96 mg/dL (70-105); Magnesium 1.7 mg/dL (1.6-2.6); Phosphorus 2.5 mg/dL (2.3-4.7); Sodium 138 mmol/L (136-145)
[2017-08-12] MEDS: Levothyroxine 100 MCG SDV IVP SCH (05:28)
--- NOTE | 2017-08-12 06:42 | OP ---
PREOPERATIVE DIAGNOSES: 1. Respiratory failure. 2. Tracheostomy. 3. Dysphagia. 4. Request by primary service and family for PEG tube placement. POSTOPERATIVE DIAGNOSES: 1. Normal esophagogastroduodenoscopy. 2. PEG tube placed by Ponsky pull technique. ANESTHESIA: TIVA at the bedside. PROCEDURE IN DETAIL: After the patient was sedated with propofol, her airway was monitored via trach with anesthesia. She did not have to put on the ventilator. Her abdomen was prepped and draped in sterile fashion. The endoscope was advanced through the esophagus, stomach and second and third port ion of the duodenum. The EGD was ____ normal. Adequate place for PEG tube placement was identified by finger indentation and transillumination and a PEG tube was placed by Ponsky pull technique. Seco nd look confirmed good placement. There was some blood at the GE junction consistent with mild lacer ation may be from pulling the PEG through. In any event, there was no ongoing bleeding. The scope w as removed. The patient tolerated the procedure well with no complications. RECOMMENDATIONS: Okay to use PEG for meds now, feeds in 4 hours, PEG tube used to be cleaned with so ap and water daily.
--- NOTE | 2017-08-12 07:39 | PRG ---
DATE OF SERVICE: 08/12/2017 This morning she is awake, alert, responsive. Trach and PEG in place. PHYSICAL EXAMINATION: VITAL SIGNS: Blood pressure 114/46, sats 96% on trach collar. Pulse 68. I's and O's 1548 in, 916 o ut. CHEST: Chest revealed bilateral rhonchi. CARDIAC: Normal S1-S2. No gallops. ABDOMEN: Soft, no masses. LABORATORY DATA: White count 16, H&H 9 and 26, platelet count normal. Electrolytes are normal. X-ray today shows cardiomegaly, nonspecific left-sided infiltrate. IMPRESSION: 1. Chronic obstructive pulmonary disease with respiratory failure. 2. Morbid obesity. 3. Thrombocytopenia. 4. Severe deconditioning. PLAN: She needs long-term placement. Her left-sided chest tube was removed. I am going to add some Pulmicort for her cough. Continue obs ervation in ICU for another 24 hours following which we can try and transfer to a monitored bed. One-half hour critical care time.
--- NOTE | 2017-08-12 08:08 | RAD ---
PORTABLE UPRIGHT FRONTAL CHEST RADIOGRAPH: Date: 08/12/17 COMPARISON: 08/06/17. HISTORY: Chest tube evaluation. FINDINGS: There is a left-sided chest tube. Tracheostomy tube and left vascular catheter noted. The Dobbhoff tu be present on the prior study has been removed. No pneumothorax is seen. There is patchy opacity in bilateral perihilar regions, left greater than ri ght. There is also hazy increased density in the left lung base, nonspecific and unchanged. IMPRESSION: No significant interval change aside from interval removal of Dobbhoff tube. POS: [facility]
[2017-08-12] MEDS: Famotidine/PF 20 mg/2ml Vial SLOW IVP SCH (09:31)
--- NOTE | 2017-08-12 10:27 | PDOC.FM ---
- Subjective Subjective: Complaining of some soreness this morning when coughing. Otherwise feeling ok and no current complaints. - Objective MAR Reviewed: Yes Vital Signs & Weight: Vital Signs (12 hours) Temp Pulse Resp 08/12/17 08:00 98.6 F 08/12/17 07:34 61 22 H 08/12/17 00:26 77 24 H Weight Admit Weight 151.046 kg Weight 149 kg Most Recent Monitor Data Heart Rate from ECG 63 NIBP 105/52 NIBP BP-Mean 65 Respiration from ECG 24 SpO2 93 I&O: 08/11/17 08/12/17 08/13/17 06:59 06:59 06:59 Intake Total 1548 1240 Output Total 916 877 50 Balance 632 363 -50 Result Diagrams: 08/12/17 04:30 08/12/17 04:30 <Yareli Menjivar - Last Filed: 08/12/17 10:32> - Objective Vital Signs & Weight: Vital Signs (12 hours) Temp Pulse Resp Pulse Ox 08/12/17 08:00 98.6 F 72 20 95 08/12/17 07:34 61 22 H 08/12/17 00:26 77 24 H Weight Admit Weight 151.046 kg Weight 149 kg Most Recent Monitor Data Heart Rate from ECG 66 NIBP 115/53 NIBP BP-Mean 65 Respiration from ECG 24 SpO2 97 I&O: 08/11/17 08/12/17 08/13/17 06:59 06:59 06:59 Intake Total 1548 1240 30 Output Total 916 877 160 Balance 632 363 -130 Result Diagrams: 08/12/17 04:30 08/12/17 04:30 <Greg Ware - Last Filed: 08/12/17 12:00> Phys Exam - Physical Examination Constitutional: NAD HEENT: moist MMs Tracheostomy in place End expiratory wheezing in LLL, rhonchi in upper lobes BL Cardiovascular: RRR, no significant murmur Gastrointestinal: soft, non-tender, no distention, positive bowel sounds PEG now in place Musculoskeletal: no edema Neurological: non-focal, moves all 4 limbs Psychiatric: normal affect Deviation from normal: alert and answering questions appropriately Skin: no rash <Yareli Menjivar - Last Filed: 08/12/17 10:32> Dx/Plan (1) Pain of right breast Code(s): N64.4 - MASTODYNIA Status: Acute (2) Pneumothorax on left Code(s): J93.9 - PNEUMOTHORAX, UNSPECIFIED Status: Acute (3) Atypical chest pain Code(s): R07.89 - OTHER CHEST PAIN Status: Resolved (4) UTI (urinary tract infection) Status: Acute QualifierTitle: Urinary tract infection type: acute cystitis Hematuria presence: with hematuria Qualified Code(s): N30.01 - Acute cystitis with hematuria (5) Acute on chronic respiratory failure with hypoxia and hypercapnia Code(s): J96.21 - ACUTE AND CHRONIC RESPIRATORY FAILURE WITH HYPOXIA; J96.22 - ACUTE AND CHRONIC RESPIRATORY FAILURE WITH HYPERCAPNIA Status: Chronic (6) Diastolic CHF Code(s): I50.30 - UNSPECIFIED DIASTOLIC (CONGESTIVE) HEART FAILURE Status: Chronic QualifierTitle: Congestive heart failure chronicity: acute on chronic Qualified Code(s): I50.33 - Acute on chronic diastolic (congestive) heart failure (7) Hypoventilation associated with obesity Code(s): E66.2 - MORBID (SEVERE) OBESITY WITH ALVEOLAR HYPOVENTILATION Status : Chronic (8) KATE (obstructive sleep apnea) Code(s): G47.33 - OBSTRUCTIVE SLEEP APNEA (ADULT) (PEDIATRIC) Status: Chronic (9) Pancytopenia Code(s): D61.818 - OTHER PANCYTOPENIA Status: Chronic (10) Paroxysmal a-fib Code(s): I48.0 - PAROXYSMAL ATRIAL FIBRILLATION Status: Chronic - Plan Plan: 1. Acute on chronic respiratory failure with hypoxia and hypercapnea - Tracheostomy in place, stable on trach collar - Per pulm, stable for transfer to monitored bed tomorrow and ultimately LTAC or NH - Appreciate Case Mgmt assistance - Appreciate Stephanie Belle and Dr. Quiñones's assistance 2. UTI - MDR E coli - Per sensitivities, transitioned to IV bactrim (08/09/2017) - Will transition to PO bactrim via PEG per Dr. Brown for total of 5-7 days - s/p Rocephin x2 days 3. Pneumothorax on L - Chest tube successfully removed - Appreciate Dr. Aranda's assistance - Will continue to monitor - Mgmt per CT surg 4. Atypical chest pain - Nuclear stress test without evidence of reversible ischemia on admission - No chest pain currently apart from intermittent soreness after coughing - Will give ibuprofen PRN for inflammation 5. Pain of R breast - F/u outpatient US and mammogram recommended - Denies any pain currently 6. Pancytopenia - Stable - Continue to monitor - Thrombocytopenia places at greater bleeding risk, will continue to hold Eliquis with immature trach and possible need for further procedures 7. Diastolic CHF - Gentle diuresis, per pulmonology - Monitor fluid balance - Will consider resuming lasix in a.m. if BP stable today 8. Paroxysmal a fib - Rate-controlled - HAS-BLED 4 currently and at high risk for bleeding - Will hold Eliquis at this time and consider resumption when safe 9. Feeding - now via PEG - Appreciate Dr. Desai and Dr. Perez' assistance - Speech consult failed on ice chips, high aspiration risk - appreciate ongoing assessments PPX: Famotidine and Lovenox Dispo: possible transfer to monitored bed tomorrow and LTAC/NH upon discharge <Yareli Menjivar - Last Filed: 08/12/17 10:32> Attending Addendum - Attending Addendum I personally evaluated the patient and discussed the management with Dr. Menjivar. I agree with the History, Examination, Assessment and Plan documented above with any addition or exceptions noted below. Tolerated PEG fine. Begin feeds. Change to oral Bactrim. Trach collar, pulmonary toilet. ASA, hold anticoagulation 2/2 bleeding risk. D/c FC. Lovenox, famotidine. <Greg Ware - Last Filed: 08/12/17 12:00>
--- NOTE | 2017-08-12 14:24 | PQF ---
CLINICAL DOCUMENTATION IMPROVEMENT CLARIFICATION FORM: ICD-10 Updated PLEASE DO AN ADDENDUM TO THE PROGRESS NOTE WITH ANY DOCUMENTATION UPDATES OR ADDITIONS AND CARRY THROUGH TO DC SUMMARY. THANK YOU. DATE: 08/12/17 ATTN: DR. CARROLL Please exercise your independent, professional judgment in responding to the clarification form. Clinical indicators are provided on the bottom of this form for your review Please check appropriate box(s): [ yes ] PNEUMOTHORAX related to current/recent surgery [ ] PNEUMOTHORAX not related to current/recent surgery [ ] Other diagnosis [ ] Unable to determine In addition, please specify:iatrogenic due to central line access Present on Admission (POA): [ ] Yes [ + ] No [ ] Unable to determine CLINICAL INDICATORS - SIGNS / SYMPTOMS / LABS CONSULTATION REPORT 08/07: "THE PATIENT IS A 62-YEAR OLD MORBIDLY OBESE WOMAN WHO YESTERDAY UNDERWENT TRACHEOSTOMY AND LEFT SUBCLAVIAN CENTRAL LINE PLACEMENT. POST-PROCEDURE FILM SHOWED PNEUMOTHORAX THAT WAS ADEQUATELY EVACUATED BY PLACEMENT OF A SMALL BORE CATHETER, BUT ON THIS MORNING'S X-RAY, SHE HAD RECURRENCE OF THAT PNEUMOTHORAX WITHOUT OBVIOUS PROBLEMS RELATED TO THE EXISTING SMALL BORE CATHETER SYSTEM PER SE." RISKS: CENTRAL LINE PLACEMENT TREATMENT: CHEST TUBE PLACEMENT SERIAL CHEST XRAYS (This form is maintained as a part of the permanent medical record) 2014 [employer] All Rights Reserved [email or web address] Office: [phone] [email or web address]
[2017-08-12] MEDS: Budesonide 0.5 MG/2 ML NEB INH SCH (18:13)
[2017-08-12] MEDS: Enoxaparin Sodium 40 MG/0.4 ML SYRINGE SC SCH (20:08)
--- NOTE | 2017-08-12 20:26 | PRG ---
DATE OF SERVICE: 08/12/2017 SUBJECTIVE: Ms. Springer is doing about the same as yesterday. We put a PEG in yesterday. The nurse s note no problems with it. She is tolerating feeds. The patient denies any pain. PHYSICAL EXAMINATION: VITAL SIGNS: Stable. Pulse 63, blood pressure 116/66. ABDOMEN: Soft. PEG site clean and dry. Bumper was loosened. ASSESSMENT: Status post PEG tube placement for respiratory failure, tracheostomy and dysphagia. PLAN: Okay to use PEG. Clean with soap and water daily. We will sign off at this time. When it co mes to the point where she does not need it in the future, we can take it out in the office.
[2017-08-13] MEDS: SMX/TMP 800-160mg/20 ML UDCUP PER TUBE SCH ×3 (01:33→21:52)
[2017-08-13] MEDS: Ketorolac Tromethamine 30 MG/ML VIAL IVP PRN ×3 (02:29→23:44)
[2017-08-13 05:15] LABS: #Eosinphils 0.2 thou/uL (0.0-0.7); #Lymphocytes 1.9 thou/uL (1.20-3.40); #Monocytes 0.8 thou/uL (0.11-0.59); #Neutrophils 3.8 thou/uL (1.40-6.50); %Basophils 0.5 % (0.0-1.0); %Eosinophils 3.2 % (0.0-10.0); %Lymphocytes 28.3 % (21.0-51.0); %Monocytes 11.9 % (0.0-10.0); %Neutrophils 56.2 % (42.0-75.0); Hemoglobin 8.2 g/dL (12.0-16.0); Mean Corpuscular HGB CONC 30.1 g/dL (32.0-36.0); Mean Corpuscular Hemoglobin 32.3 pg (27.0-31.0); Mean Platelet Volume 8.6 fL (7.4-10.4); Platelet Count 100 thou/uL (130-400); RBC Distribution Width 17.1 % (11.5-14.5); Red Blood Cell (RBC) Count 2.54 mill/uL (4.20-5.40); White Blood Cell (WBC) Count 6.8 thou/uL (4.8-10.8)
[2017-08-13 05:18] LABS: Anion Gap 9 mmol/L (10-20); BUN (Urea Nitrogen) 19 mg/dL (9.8-20.1); Calc. Creatinine Clearance 198 mL/min (70-130); Calcium 8.2 mg/dL (7.8-10.44); Carbon Dioxide 32 mmol/L (22-29); Chloride 101 mmol/L (98-107); Estimated GFR-MDRD 84; Glucose 95 mg/dL (70-105); Potassium 4.4 mmol/L (3.5-5.1); Sodium 138 mmol/L (136-145)
[2017-08-13] MEDS: Levothyroxine 100 MCG SDV IVP SCH (05:40)
--- NOTE | 2017-08-13 05:57 | PDOC.FM ---
- Subjective Subjective: Feeling OK this morning. Cough improved and resting comfortably. Answering questions appropriately and no pain or concerns at this time. - Objective MAR Reviewed: Yes Vital Signs & Weight: Vital Signs (12 hours) Temp Pulse Resp Pulse Ox 08/13/17 04:00 98.7 F 08/13/17 00:08 68 23 H 95 08/12/17 20:00 98.9 F 67 23 H 100 08/12/17 18:13 67 23 H 97 Weight Admit Weight 151.046 kg Weight 148.6 kg Most Recent Monitor Data Heart Rate from ECG 59 NIBP 112/43 NIBP BP-Mean 60 Respiration from ECG 19 SpO2 97 I&O: 08/11/17 08/12/17 08/13/17 06:59 06:59 06:59 Intake Total 1548 1240 1821 Output Total 916 877 540 Balance 613 050 4541 Result Diagrams: 08/13/17 04:05 08/13/17 04:05 Radiology Reviewed by me: Yes <Yareli Menjivar - Last Filed: 08/13/17 11:10> - Objective Vital Signs & Weight: Vital Signs (12 hours) Temp Pulse Resp Pulse Ox 08/13/17 20:00 98.9 F 61 17 92 L 08/13/17 18:59 62 20 96 08/13/17 16:00 98.1 F 08/13/17 13:26 60 20 08/13/17 12:00 99.3 F Weight Admit Weight 151.046 kg Weight 148.6 kg Most Recent Monitor Data Heart Rate from ECG 59 NIBP 113/50 NIBP BP-Mean 67 Respiration from ECG 18 SpO2 93 I&O: 08/12/17 08/13/17 08/14/17 06:59 06:59 06:59 Intake Total 1240 1821 761 Output Total 882 016 9270 Balance 363 1281 -519 Result Diagrams: 08/13/17 04:05 08/13/17 04:05 <Greg Ware - Last Filed: 08/13/17 21:15> Phys Exam - Physical Examination Constitutional: NAD HEENT: moist MMs Neck: supple trach collar Respiratory: no wheezing rhonchi in bilateral upper lobes Cardiovascular: RRR, no significant murmur Gastrointestinal: soft, non-tender, positive bowel sounds Musculoskeletal: no edema Neurological: moves all 4 limbs Psychiatric: normal affect, A&O x 3 Skin: no rash <Yareli Menjivar - Last Filed: 08/13/17 11:10> Dx/Plan (1) Pain of right breast Code(s): N64.4 - MASTODYNIA Status: Acute (2) Pneumothorax on left Code(s): J93.9 - PNEUMOTHORAX, UNSPECIFIED Status: Acute (3) Atypical chest pain Code(s): R07.89 - OTHER CHEST PAIN Status: Resolved (4) UTI (urinary tract infection) Status: Acute QualifierTitle: Urinary tract infection type: acute cystitis Hematuria presence: with hematuria Qualified Code(s): N30.01 - Acute cystitis with hematuria (5) Acute on chronic respiratory failure with hypoxia and hypercapnia Code(s): J96.21 - ACUTE AND CHRONIC RESPIRATORY FAILURE WITH HYPOXIA; J96.22 - ACUTE AND CHRONIC RESPIRATORY FAILURE WITH HYPERCAPNIA Status: Chronic (6) Diastolic CHF Code(s): I50.30 - UNSPECIFIED DIASTOLIC (CONGESTIVE) HEART FAILURE Status: Chronic QualifierTitle: Congestive heart failure chronicity: acute on chronic Qualified Code(s): I50.33 - Acute on chronic diastolic (congestive) heart failure (7) Hypoventilation associated with obesity Code(s): E66.2 - MORBID (SEVERE) OBESITY WITH ALVEOLAR HYPOVENTILATION Status : Chronic (8) KATE (obstructive sleep apnea) Code(s): G47.33 - OBSTRUCTIVE SLEEP APNEA (ADULT) (PEDIATRIC) Status: Chronic (9) Pancytopenia Code(s): D61.818 - OTHER PANCYTOPENIA Status: Chronic (10) Paroxysmal a-fib Code(s): I48.0 - PAROXYSMAL ATRIAL FIBRILLATION Status: Chronic - Plan Plan: 1. Acute on chronic respiratory failure with hypoxia and hypercapnea - Tracheostomy in place, stable on trach collar - Per pulm, stable for transfer to monitored bed tomorrow and ultimately LTAC or NH - Appreciate Case Mgmt assistance - Appreciate Stephanie Belle and Dr. Quiñones's assistance - Possible transfer out of CCU today pending Dr. Brown's recommendation 2. UTI - MDR E coli - Per sensitivities, transitioned to IV bactrim (08/09/2017) - PO bactrim started 08/12/2017, last dose 08/14/2017 - s/p Rocephin x2 days 3. Pneumothorax on L - Chest tube successfully removed - Appreciate Dr. Aranda's assistance - Will continue to monitor - Mgmt per CT surg 4. Atypical chest pain - Nuclear stress test without evidence of reversible ischemia on admission - No chest pain currently apart from intermittent soreness after coughing - Will give ibuprofen/toradol PRN for inflammation 5. Pain of R breast - F/u outpatient US and mammogram recommended - Denies any pain currently 6. Pancytopenia - Stable - Continue to monitor - Thrombocytopenia places at greater bleeding risk, will continue to hold Eliquis with immature trach and possible need for further procedures - Will transition to every other day labs 7. Diastolic CHF - Gentle diuresis, per pulmonology - Monitor fluid balance - Consider resuming lasix today 8. Paroxysmal a fib - Rate-controlled - HAS-BLED 4 currently and at high risk for bleeding - Will hold Eliquis at this time and consider resumption when safe 9. Feeding - now via PEG - Appreciate Dr. Desai and Dr. Perez' assistance - Speech consult failed on ice chips, high aspiration risk - appreciate ongoing assessments PPX: Famotidine and Lovenox Dispo: possible transfer to monitored bed out of CCU and LTAC/NH upon discharge <Yareli Menjivar - Last Filed: 08/13/17 11:10> Attending Addendum - Attending Addendum I personally evaluated the patient and discussed the management with Dr. Menjivar. I agree with and repeated the History, Examination, Assessment and Plan documented above with any addition or exceptions noted below. No cp/sob/n/v or other complaint this morning. Chronic resp failure, stable, continue nebs PRN Afib with RVR, intermittent, on ASA, will revisit anticoagulation when out of the ICU CAUTI, plan for 5 days of antimicrobials, FC d/c'd PT/OT, transfer when bed available. <Greg Ware - Last Filed: 08/13/17 21:15>
[2017-08-13] MEDS: Budesonide 0.5 MG/2 ML NEB INH SCH ×2 (07:52→18:55)
--- NOTE | 2017-08-13 08:50 | PRG ---
DATE OF SERVICE: 08/13/2017 This morning she is awake, alert, responsive. Trach and PEG in place. PHYSICAL EXAMINATION: VITAL SIGNS: Sats are 97%, pulse 70, respirations 18, blood pressure 196/38. CHEST: Chest revealed decreased breath sounds, no wheezing. CARDIAC: Normal S1-S2. No gallops. ABDOMEN: Soft. No masses. LABORATORY: White count 6, H&H 8 and 27, platelet count is 8,000. Electrolytes are normal. Chest x -ray relatively clear, questionable left-sided infiltrate. IMPRESSION: 1. Morbid obesity. 2. Chronic obstructive pulmonary disease. 3. Pneumonia. 4. Respiratory failure. 5. A trach and PEG in place. 6. Urinary tract infection. PLAN: Suggest switching antibiotics to p.o. Discontinue daily lab. Trying to get a placement for her. Supportive care, PT. I will follow.
--- NOTE | 2017-08-13 09:02 | RAD ---
SINGLE VIEW OF CHEST: Date: 08/13/17 COMPARISON: 08/12/17. HISTORY: Chest tube removal. FINDINGS: Single view of the chest shows an enlarged cardiomediastinal silhouette. The left-sided chest tube hatfield s been removed. No pneumothorax is seen. Tracheostomy and central venous catheter are unchanged in po sition. There may be a small left pleural effusion. IMPRESSION: 1. Status post chest tube removal without evidence of pneumothorax. 2. Small left pleural effusion. POS: [facility]
[2017-08-13] MEDS: Famotidine 20 MG TAB PER TUBE SCH (09:44)
[2017-08-13] MEDS: Enoxaparin Sodium 40 MG/0.4 ML SYRINGE SC SCH (23:02)
[2017-08-14] MEDS ORDERED: Enoxaparin Sodium 40 MG/0.4 ML SYRINGE SC SCH (01:30)
--- NOTE | 2017-08-14 06:23 | PDOC.FM ---
- Subjective Subjective: Did well overnight per nursing. Has not had a BM since 08/06. No other concerns this AM. - Objective MAR Reviewed: Yes Vital Signs & Weight: Vital Signs (12 hours) Temp Pulse Resp Pulse Ox 08/14/17 04:00 98.9 F 08/14/17 00:27 65 24 H 92 L 08/13/17 20:00 98.9 F 61 17 92 L 08/13/17 18:59 62 20 96 08/13/17 18:55 62 20 96 Weight Admit Weight 151.046 kg Weight 148.6 kg Most Recent Monitor Data Heart Rate from ECG 79 NIBP 99/71 NIBP BP-Mean 90 Respiration from ECG 24 SpO2 87 I&O: 08/12/17 08/13/17 08/14/17 06:59 06:59 06:59 Intake Total 1240 1821 1380 Output Total 233 605 4371 Balance 363 1281 -200 Result Diagrams: 08/13/17 04:05 08/13/17 04:05 <Ivan Varela - Last Filed: 08/14/17 11:47> - Objective Vital Signs & Weight: Vital Signs (12 hours) Temp Pulse Resp Pulse Ox 08/14/17 16:00 98.8 F 08/14/17 15:01 68 23 H 96 08/14/17 12:00 98.3 F 08/14/17 08:00 98.8 F 69 23 H 90 L 08/14/17 06:50 94 L 08/14/17 06:49 60 20 94 L 08/14/17 06:45 60 20 94 L Weight Admit Weight 151.046 kg Weight 148.7 kg Most Recent Monitor Data Heart Rate from ECG 68 NIBP 122/45 NIBP BP-Mean 88 Respiration from ECG 18 SpO2 96 I&O: 08/13/17 08/14/17 08/15/17 06:59 06:59 06:59 Intake Total 1821 1380 376 Output Total 540 1580 2 Balance 1281 -200 374 Result Diagrams: 08/13/17 04:05 08/13/17 04:05 <Greg Ware - Last Filed: 08/14/17 17:51> Phys Exam - Physical Examination Constitutional: NAD morbidly obese HEENT: PERRLA, moist MMs trach collar in place Neck: supple Respiratory: no wheezing, clear to auscultation bilateral Cardiovascular: RRR, no significant murmur Gastrointestinal: soft, non-tender, no distention Musculoskeletal: no edema, pulses present Neurological: non-focal, normal sensation, moves all 4 limbs Psychiatric: normal affect, A&O x 3 Skin: no rash <Ivan Varela - Last Filed: 08/14/17 11:47> Dx/Plan (1) Acute on chronic respiratory failure with hypoxia and hypercapnia Code(s): J96.21 - ACUTE AND CHRONIC RESPIRATORY FAILURE WITH HYPOXIA; J96.22 - ACUTE AND CHRONIC RESPIRATORY FAILURE WITH HYPERCAPNIA Status: Chronic Plan: Stable on trach collar now. Appreciate pulmonology recs. Stable for transfer to [facility], awaiting bed. Receiving neb treatments as needed. (2) KATE (obstructive sleep apnea) Code(s): G47.33 - OBSTRUCTIVE SLEEP APNEA (ADULT) (PEDIATRIC) Status: Acute (3) Diastolic CHF Code(s): I50.30 - UNSPECIFIED DIASTOLIC (CONGESTIVE) HEART FAILURE Status: Chronic QualifierTitle: Congestive heart failure chronicity: acute on chronic Qualified Code(s): I50.33 - Acute on chronic diastolic (congestive) heart failure (4) Type 2 diabetes mellitus Status: Chronic QualifierTitle: Diabetes mellitus complication status: with skin complications Diabetes mellitus complication detail: with other skin ulcer Diabetes mellitus alf insulin use: unspecified long term acute care registered nurse insulin use status Qualified Code(s): E11.622 - Type 2 diabetes mellitus with other skin ulcer; L98.499 - Non-pressure chronic ulcer of skin of other sites with unspecified severity; L98.499 - Non-pressure chronic ulcer of skin of other sites with unspecified severity; L98.499 - Non-pressure chronic ulcer of skin of other sites with unspecified severity; L98.499 - Non-pressure chronic ulcer of skin of other sites with unspecified severity (5) Obesity, morbid Code(s): E66.01 - MORBID (SEVERE) OBESITY DUE TO EXCESS CALORIES Status: Chronic (6) Constipation Code(s): K59.00 - CONSTIPATION, UNSPECIFIED Status: Acute Plan: Will add bowel regimen. <Ivan Varela - Last Filed: 08/14/17 11:47> Attending Addendum - Attending Addendum I personally evaluated the patient and discussed the management with Dr. Varela. I agree with and repeated the History, Examination, Assessment and Plan documented above with any addition or exceptions noted below. Resting comfortably this AM. A on C hypox/hypercap resp failure improving. dHF, euvolemic. CAUTI completing therapy today, FC out. Stable anemia/tpenia and will d/c daily labs. Continue home medications. Trach care per pulm. PT/OT and placement. <Greg Ware - Last Filed: 08/14/17 17:51>
[2017-08-14] MEDS: Levothyroxine Sodium 125 MCG TAB PO SCH (06:43)
[2017-08-14] MEDS: Budesonide 0.5 MG/2 ML NEB INH SCH ×2 (06:49→18:41)
[2017-08-14] MEDS ORDERED: Polyethylene Glycol 3350 17 GM Packet PO PRN (07:25)
[2017-08-14] MEDS ORDERED: Docusate 100 MG CAP PO PRN (07:25)
[2017-08-14] MEDS: Famotidine 20 MG TAB PER TUBE SCH (08:29)
[2017-08-14] MEDS: SMX/TMP 800-160mg/20 ML UDCUP PER TUBE SCH (08:30)
[2017-08-14] MEDS: Ketorolac Tromethamine 30 MG/ML VIAL IVP PRN (10:48)
--- NOTE | 2017-08-14 12:05 | PRG ---
DATE OF SERVICE: 08/14/2017 SUBJECTIVE: Love Springer is a morbidly obese female status post respiratory failure, status post trach and PEG. PHYSICAL EXAMINATION: VITAL SIGNS: Sats are 93% on 28% FiO2, pulse 67, blood pressure is 130/80, respirations 24, I's and O's 182 in 540 out. CHEST: Bilateral rhonchi. CARDIAC: Normal S1 and S2. No gallops. ABDOMEN: Soft. No masses. IMPRESSION: 1. Respiratory failure, tracheostomy and percutaneous endoscopic gastrostomy tube. 2. Morbid obesity. 3. Chronic obstructive pulmonary disease. PLAN: She can be transferred to monitored bed and eventually placement. Antibiotics for UTI. We will follow.
[2017-08-14] MEDS: Enoxaparin Sodium 40 MG/0.4 ML SYRINGE SC SCH (21:46)
[2017-08-15] MEDS: Acetaminophen 650 MG/20.3 ML UDCUP PER TUBE PRN (00:05)
[2017-08-15] MEDS: Levothyroxine Sodium 125 MCG TAB PO SCH (05:22)
--- NOTE | 2017-08-15 05:55 | PDOC.FM ---
- Subjective Subjective: Did well yesterday, but still no BM. Awaiting bed at [facility]. - Objective MAR Reviewed: Yes Vital Signs & Weight: Vital Signs (12 hours) Temp Pulse Resp Pulse Ox 08/15/17 05:00 98.3 F 08/15/17 01:47 97 08/15/17 00:00 98.1 F 08/14/17 20:00 98 F 08/14/17 19:51 98 F 62 22 H 94 L 08/14/17 18:42 94 L 08/14/17 18:40 62 22 H 94 L Weight Admit Weight 151.046 kg Weight 148.7 kg Most Recent Monitor Data Heart Rate from ECG 69 NIBP 114/47 NIBP BP-Mean 56 Respiration from ECG 19 SpO2 98 I&O: 08/13/17 08/14/17 08/15/17 06:59 06:59 06:59 Intake Total 1821 1380 526 Output Total 540 1580 502 Balance 1281 -200 24 Result Diagrams: 08/13/17 04:05 08/13/17 04:05 EKG Reviewed by me: Yes <Ivan Varela - Last Filed: 08/15/17 07:20> - Objective Vital Signs & Weight: Vital Signs (12 hours) Temp Pulse Resp BP Pulse Ox 08/15/17 14:57 98.8 F 68 20 119/59 L 93 L 08/15/17 13:24 98 08/15/17 13:21 60 23 H 98 08/15/17 13:20 60 23 H 98 08/15/17 12:00 98.5 F 08/15/17 08:00 98.4 F 69 20 93 L 08/15/17 05:00 98.3 F Weight Admit Weight 151.046 kg Weight 148.9 kg Most Recent Monitor Data Heart Rate from ECG 64 NIBP 119/48 NIBP BP-Mean 85 Respiration from ECG 21 SpO2 95 I&O: 08/14/17 08/15/17 08/16/17 06:59 06:59 06:59 Intake Total 1380 898 300 Output Total 1580 502 2 Balance -200 396 298 Result Diagrams: 08/13/17 04:05 08/13/17 04:05 <Greg Ware - Last Filed: 08/15/17 15:17> Phys Exam - Physical Examination Constitutional: NAD HEENT: PERRLA, moist MMs Neck: supple, full ROM trach collar in place Respiratory: no wheezing, clear to auscultation bilateral Cardiovascular: RRR, no significant murmur Gastrointestinal: soft, no distention, positive bowel sounds Musculoskeletal: pulses present, edema present nonpitting Neurological: non-focal, normal sensation, moves all 4 limbs Psychiatric: normal affect Skin: no rash <Ivan Varela - Last Filed: 08/15/17 07:20> Dx/Plan (1) Acute on chronic respiratory failure with hypoxia and hypercapnia Code(s): J96.21 - ACUTE AND CHRONIC RESPIRATORY FAILURE WITH HYPOXIA; J96.22 - ACUTE AND CHRONIC RESPIRATORY FAILURE WITH HYPERCAPNIA Status: Chronic Plan: Stable on trach collar now. Appreciate pulmonology recs. Stable for transfer to [facility], awaiting bed. Receiving neb treatments as needed. Will hopefully be stable for transfer to rehab facility early this week. (2) KATE (obstructive sleep apnea) Code(s): G47.33 - OBSTRUCTIVE SLEEP APNEA (ADULT) (PEDIATRIC) Status: Acute (3) Diastolic CHF Code(s): I50.30 - UNSPECIFIED DIASTOLIC (CONGESTIVE) HEART FAILURE Status: Chronic QualifierTitle: Congestive heart failure chronicity: acute on chronic Qualified Code(s): I50.33 - Acute on chronic diastolic (congestive) heart failure (4) Type 2 diabetes mellitus Status: Chronic QualifierTitle: Diabetes mellitus complication status: with skin complications Diabetes mellitus complication detail: with other skin ulcer Diabetes mellitus prison insulin use: unspecified prison insulin use status Qualified Code(s): E11.622 - Type 2 diabetes mellitus with other skin ulcer; L98.499 - Non-pressure chronic ulcer of skin of other sites with unspecified severity; L98.499 - Non-pressure chronic ulcer of skin of other sites with unspecified severity; L98.499 - Non-pressure chronic ulcer of skin of other sites with unspecified severity; L98.499 - Non-pressure chronic ulcer of skin of other sites with unspecified severity (5) Obesity, morbid Code(s): E66.01 - MORBID (SEVERE) OBESITY DUE TO EXCESS CALORIES Status: Chronic (6) Constipation Code(s): K59.00 - CONSTIPATION, UNSPECIFIED Status: Acute Plan: Will add bowel regimen, augment as needed. <Ivan Varela - Last Filed: 08/15/17 07:20> Attending Addendum - Attending Addendum I personally evaluated the patient and discussed the management with Dr. Varela. I agree with and repeated the History, Examination, Assessment and Plan documented above with any addition or exceptions noted below. Essentially no changes, no cp/sob/n/v. No bm. 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 Trach changes per pulm. <Greg Ware - Last Filed: 08/15/17 15:17>
[2017-08-15] MEDS ORDERED: Docusate Sodium 10 MG/1 ML Oral Suspension PO PRN (08:00)
[2017-08-15] MEDS: Famotidine 20 MG TAB PER TUBE SCH (08:36)
[2017-08-15] MEDS: Ketorolac Tromethamine 30 MG/ML VIAL IVP PRN ×2 (09:35→21:18)
[2017-08-15] MEDS: Budesonide 0.5 MG/2 ML NEB INH SCH ×2 (13:21→19:31)
--- NOTE | 2017-08-15 14:15 | PRG ---
DATE OF SERVICE: 08/15/2017 SUBJECTIVE: Love Springer is a 62-year-old morbidly obese female status post trach, PEG, severe de conditioning, trying to get a placement. Denies any pain or discomfort. OBJECTIVE: VITAL SIGNS: Pulse is 67, sats 97% on trach collar, respirations 18 and blood pressure 130/80. CHEST: Decreased breath sounds. No wheezing. CARDIAC: Normal S1 and S2. No gallops. ABDOMEN: Soft. No masses. 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 PLAN: Minimize sedation. Aggressive PT placement.
[2017-08-15] MEDS: Enoxaparin Sodium 40 MG/0.4 ML SYRINGE SC SCH (20:44)
[2017-08-15] MEDS: Docusate Sodium 100 MG/10 ML UDCUP PO SCH (20:44)
[2017-08-16] MEDS: Levothyroxine Sodium 125 MCG TAB PO SCH (05:41)
[2017-08-16] MEDS: Budesonide 0.5 MG/2 ML NEB INH SCH ×2 (08:17→20:00)
[2017-08-16] MEDS: Famotidine 20 MG TAB PER TUBE SCH (08:45)
[2017-08-16] MEDS: Polyethylene Glycol 3350 17 GM Packet PO SCH (08:45)
[2017-08-16] MEDS: Docusate Sodium 100 MG/10 ML UDCUP PO SCH ×2 (08:45→20:52)
--- NOTE | 2017-08-16 09:31 | PRG ---
DATE OF SERVICE: 08/16/2017 She is awake, alert, responsive. Trach and PEG. PHYSICAL EXAMINATION: VITAL SIGNS: Sats are 90%, 28 respirations, temperature 99, blood pressure 170/53. CHEST: Chest reveals decreased breath sounds, no wheezing. CARDIAC: Normal S1, S2, no gallops. ABDOMEN: Soft, no masses. IMPRESSION: 1. Morbid obesity. 2. Obstructive sleep apnea. 3. Chronic obstructive pulmonary disease. Trach and PEG in place. PLAN: Placement. Avoid sedation. Aggressive PT is recommended.
--- NOTE | 2017-08-16 12:07 | PDOC.FM ---
- Subjective Subjective: Pt reports doing about the same. No CP, SOB, N/V. - Objective MAR Reviewed: Yes Vital Signs & Weight: Vital Signs (12 hours) Temp Pulse Resp BP Pulse Ox 08/16/17 11:51 98.3 F 65 20 132/68 97 08/16/17 08:18 98 08/16/17 08:17 62 24 H 98 08/16/17 08:16 63 24 H 98 08/16/17 08:00 98.5 F 64 19 99 08/16/17 07:28 98.5 F 64 19 117/53 L 99 08/16/17 05:25 100 08/16/17 04:00 98.6 F 64 20 112/51 L 95 08/16/17 01:55 68 18 100 Weight Admit Weight 151.046 kg Weight 147.8 kg Most Recent Monitor Data Heart Rate from ECG 64 NIBP 119/48 NIBP BP-Mean 85 Respiration from ECG 21 SpO2 95 I&O: 08/15/17 08/16/17 08/17/17 06:59 06:59 06:59 Intake Total 898 1218 Output Total 502 277 Balance 396 941 Result Diagrams: 08/13/17 04:05 08/13/17 04:05 <Amrit Deluna - Last Filed: 08/16/17 12:05> - Objective Vital Signs & Weight: Vital Signs (12 hours) Temp Pulse Resp BP Pulse Ox 08/16/17 16:00 98.0 F 74 19 130/61 99 08/16/17 14:11 63 19 99 08/16/17 11:51 98.3 F 65 20 132/68 97 08/16/17 08:18 98 08/16/17 08:17 62 24 H 98 08/16/17 08:16 63 24 H 98 08/16/17 08:00 98.5 F 64 19 99 08/16/17 07:28 98.5 F 64 19 117/53 L 99 08/16/17 05:25 100 Weight Admit Weight 154.63 kg Weight 147.8 kg Most Recent Monitor Data Heart Rate from ECG 64 NIBP 119/48 NIBP BP-Mean 85 Respiration from ECG 21 SpO2 95 I&O: 08/15/17 08/16/17 08/17/17 06:59 06:59 06:59 Intake Total 898 1218 Output Total 502 277 Balance 396 941 Result Diagrams: 08/13/17 04:05 08/13/17 04:05 <Valeria Madrid - Last Filed: 08/16/17 16:43> Phys Exam - Physical Examination Constitutional: NAD HEENT: PERRLA suctioning secretions trach in place Respiratory: no wheezing, clear to auscultation bilateral Cardiovascular: RRR, no significant murmur Gastrointestinal: soft, non-tender, positive bowel sounds Musculoskeletal: pulses present Neurological: non-focal, moves all 4 limbs Psychiatric: normal affect Skin: no rash <Amrit Deluna - Last Filed: 08/16/17 12:05> Dx/Plan (1) Acute on chronic respiratory failure with hypoxia and hypercapnia Code(s): J96.21 - ACUTE AND CHRONIC RESPIRATORY FAILURE WITH HYPOXIA; J96.22 - ACUTE AND CHRONIC RESPIRATORY FAILURE WITH HYPERCAPNIA Status: Chronic Plan: Stable at this time. Will discuss with CM for placement. PT (2) Constipation Code(s): K59.00 - CONSTIPATION, UNSPECIFIED Status: Acute Plan: BM overnight. Will continue with miralax (3) KATE (obstructive sleep apnea) Code(s): G47.33 - OBSTRUCTIVE SLEEP APNEA (ADULT) (PEDIATRIC) Status: Acute (4) Diastolic CHF Code(s): I50.30 - UNSPECIFIED DIASTOLIC (CONGESTIVE) HEART FAILURE Status: Chronic QualifierTitle: Congestive heart failure chronicity: acute on chronic Qualified Code(s): I50.33 - Acute on chronic diastolic (congestive) heart failure (5) Obesity, morbid Code(s): E66.01 - MORBID (SEVERE) OBESITY DUE TO EXCESS CALORIES Status: Chronic (6) Type 2 diabetes mellitus Status: Chronic QualifierTitle: Diabetes mellitus complication status: with skin complications Diabetes mellitus complication detail: with other skin ulcer Diabetes mellitus snf insulin use: unspecified termite helper insulin use status Qualified Code(s): E11.622 - Type 2 diabetes mellitus with other skin ulcer; L98.499 - Non-pressure chronic ulcer of skin of other sites with unspecified severity; L98.499 - Non-pressure chronic ulcer of skin of other sites with unspecified severity; L98.499 - Non-pressure chronic ulcer of skin of other sites with unspecified severity; L98.499 - Non-pressure chronic ulcer of skin of other sites with unspecified severity <Amrit Deluna - Last Filed: 08/16/17 12:05> Attending Addendum - Attending Addendum I personally evaluated the patient and discussed the management with Dr. Deluna I agree with the History, Examination, Assessment and Plan documented above with any addition or exceptions noted below- Patient on trach collar. Afebrile VSS. A/P: 1) Acute on chronic resp failure- s/p trach- stable; continue nebs. 2 ) dCHF- stable, 3) Deconditioning- continue PT/OT; will need placement <Valeria Madrid - Last Filed: 08/16/17 16:43>
[2017-08-16] MEDS: Ketorolac Tromethamine 30 MG/ML VIAL IVP PRN ×2 (14:40→20:53)
[2017-08-16] MEDS: Enoxaparin Sodium 40 MG/0.4 ML SYRINGE SC SCH (20:53)
[2017-08-17] MEDS: Levothyroxine Sodium 125 MCG TAB PO SCH (05:38)
--- NOTE | 2017-08-17 06:25 | PDOC.FM ---
- Subjective Subjective: Patient has no significant changes from yesterday. Patient reports no CP, N/V. SOB is about the same. Spoke with CM yesterday and they are working on placement at rehab. If that does not work, will try NH. - Objective MAR Reviewed: Yes Vital Signs & Weight: Vital Signs (12 hours) Temp Pulse Resp BP Pulse Ox 08/17/17 01:09 99 08/17/17 00:00 98.0 F 65 20 115/48 L 100 08/16/17 20:01 100 08/16/17 20:00 98.1 F 64 20 97 08/16/17 19:59 72 20 100 08/16/17 19:00 98.1 F 64 20 133/38 L 97 Weight Admit Weight 154.63 kg Weight 147.4 kg Most Recent Monitor Data Heart Rate from ECG 64 NIBP 119/48 NIBP BP-Mean 85 Respiration from ECG 21 SpO2 95 I&O: 08/15/17 08/16/17 08/17/17 06:59 06:59 06:59 Intake Total 898 1218 990 Output Total 502 277 450 Balance 396 941 540 Result Diagrams: 08/13/17 04:05 08/13/17 04:05 <Amrit Deluna - Last Filed: 08/17/17 11:35> - Objective Vital Signs & Weight: Vital Signs (12 hours) Temp Pulse Pulse Pulse Resp BP BP 08/17/17 13:01 68 19 08/17/17 12:00 98.0 F 76 24 H 08/17/17 09:30 67 69 143/73 H 120/52 L 08/17/17 09:09 08/17/17 08:59 68 25 H 08/17/17 08:00 97.7 F 66 20 BP BP Pulse Ox Pulse Ox Pulse Ox 08/17/17 13:01 08/17/17 12:00 107/47 L 88 L 08/17/17 09:30 119/49 L 99 97 08/17/17 09:09 97 08/17/17 08:59 95 08/17/17 08:00 97/31 L 97 Weight Admit Weight 154.63 kg Weight 147.4 kg Most Recent Monitor Data Heart Rate from ECG 64 NIBP 119/48 NIBP BP-Mean 85 Respiration from ECG 21 SpO2 95 I&O: 08/16/17 08/17/17 08/18/17 06:59 06:59 06:59 Intake Total 1218 990 90 Output Total 277 450 Balance 941 540 90 Result Diagrams: 08/13/17 04:05 08/13/17 04:05 <Lorene Raygoza - Last Filed: 08/17/17 16:54> Phys Exam - Physical Examination Constitutional: NAD HEENT: PERRLA Neck: full ROM trach collar in place mild diffuse wheezing Cardiovascular: RRR, no significant murmur Gastrointestinal: soft, positive bowel sounds Musculoskeletal: pulses present Neurological: non-focal, moves all 4 limbs Psychiatric: normal affect <Amrit Deluna - Last Filed: 08/17/17 11:35> Dx/Plan (1) Acute on chronic respiratory failure with hypoxia and hypercapnia Code(s): J96.21 - ACUTE AND CHRONIC RESPIRATORY FAILURE WITH HYPOXIA; J96.22 - ACUTE AND CHRONIC RESPIRATORY FAILURE WITH HYPERCAPNIA Status: Chronic Plan: Stable at this time. continue to encourage PT. Placement (2) Constipation Code(s): K59.00 - CONSTIPATION, UNSPECIFIED Status: Acute (3) KATE (obstructive sleep apnea) Code(s): G47.33 - OBSTRUCTIVE SLEEP APNEA (ADULT) (PEDIATRIC) Status: Acute (4) Diastolic CHF Code(s): I50.30 - UNSPECIFIED DIASTOLIC (CONGESTIVE) HEART FAILURE Status: Chronic QualifierTitle: Congestive heart failure chronicity: acute on chronic Qualified Code(s): I50.33 - Acute on chronic diastolic (congestive) heart failure (5) Obesity, morbid Code(s): E66.01 - MORBID (SEVERE) OBESITY DUE TO EXCESS CALORIES Status: Chronic (6) Type 2 diabetes mellitus Status: Chronic QualifierTitle: Diabetes mellitus complication status: with skin complications Diabetes mellitus complication detail: with other skin ulcer Diabetes mellitus longterm insulin use: unspecified longterm insulin use status Qualified Code(s): E11.622 - Type 2 diabetes mellitus with other skin ulcer; L98.499 - Non-pressure chronic ulcer of skin of other sites with unspecified severity; L98.499 - Non-pressure chronic ulcer of skin of other sites with unspecified severity; L98.499 - Non-pressure chronic ulcer of skin of other sites with unspecified severity; L98.499 - Non-pressure chronic ulcer of skin of other sites with unspecified severity <Amrit Deluna - Last Filed: 08/17/17 11:35> Attending Addendum - Attending Addendum I personally evaluated the patient and discussed the management with Dr. Deluna at 10 am. I agree with the History, Examination, Assessment and Plan documented above with any addition or exceptions noted below. Patient is complaining of some mild epigastric abdominal pain around PEG. No erythema or discharge noted and tolerating tube feeds well. Acute on chronic respiratory failure- on trach collar. Still working on placement issues dCHF- stable Deconditioning- continue aggressive with with PT/OT and placement in rehab vs SNF. <Lorene Raygoza - Last Filed: 08/17/17 16:54>
[2017-08-17] MEDS: Polyethylene Glycol 3350 17 GM Packet PO SCH (07:20)
[2017-08-17] MEDS: Docusate Sodium 100 MG/10 ML UDCUP PO SCH ×2 (07:20→21:27)
[2017-08-17] MEDS: Famotidine 20 MG TAB PER TUBE SCH (08:19)
[2017-08-17] MEDS: Budesonide 0.5 MG/2 ML NEB INH SCH ×2 (09:09→18:54)
--- NOTE | 2017-08-17 09:28 | PRG ---
DATE OF SERVICE: 08/17/2017 This morning she is complaining of vague chest pain and no obvious shortness of breath. PHYSICAL EXAMINATION: VITAL SIGNS: Sats are 96%, respirations 25, temperature 97, blood pressure 97/31. CHEST: Chest revealed decreased breath sounds, no wheezing. CARDIAC: Normal S1-S2. No gallops. ABDOMEN: Soft. No masses. IMPRESSION: 1. Chronic obstructive pulmonary disease. 2. Sleep apnea. 3. Obstructive sleep apnea. 4. Morbid obesity. 5. Unclear what the cause of the chest pain is. PLAN: Continue neb treatments, supportive care. I will follow.
[2017-08-17] MEDS: Ketorolac Tromethamine 30 MG/ML VIAL IVP PRN (10:07)
[2017-08-17] MEDS: Enoxaparin Sodium 40 MG/0.4 ML SYRINGE SC SCH (21:28)
[2017-08-18] MEDS: Acetaminophen 650 MG/20.3 ML UDCUP PER TUBE PRN ×2 (00:01→22:39)
[2017-08-18 04:18] LABS: #Basophils 0.1 thou/uL (0.0-0.2); #Eosinphils 0.3 thou/uL (0.0-0.7); #Lymphocytes 2.3 thou/uL (1.20-3.40); #Monocytes 0.9 thou/uL (0.11-0.59); #Neutrophils 2.7 thou/uL (1.40-6.50); %Eosinophils 4.9 % (0.0-10.0); %Lymphocytes 37.6 % (21.0-51.0); %Monocytes 13.7 % (0.0-10.0); %Neutrophils 42.8 % (42.0-75.0); Hemoglobin 7.8 g/dL (12.0-16.0); Mean Corpuscular HGB CONC 31.1 g/dL (32.0-36.0); Mean Corpuscular Hemoglobin 32.5 pg (27.0-31.0); Platelet Count 102 thou/uL (130-400); RBC Distribution Width 17.4 % (11.5-14.5); Red Blood Cell (RBC) Count 2.39 mill/uL (4.20-5.40); White Blood Cell (WBC) Count 6.2 thou/uL (4.8-10.8)
[2017-08-18 04:40] LABS: ALT (SGPT) 11 U/L (8-55); AST (SGOT) 29 U/L (5-34); Albumin 2.1 g/dL (3.5-5.0); Alkaline Phosphatase 148 U/L (40-150); Anion Gap 9 mmol/L (10-20); BUN (Urea Nitrogen) 23 mg/dL (9.8-20.1); Bilirubin, Total 0.5 mg/dL (0.2-1.2); Calc. Creatinine Clearance 193 mL/min (70-130); Calcium 8.6 mg/dL (7.8-10.44); Carbon Dioxide 36 mmol/L (22-29); Chloride 99 mmol/L (98-107); Estimated GFR-MDRD 83; Globulin 4.4 g/dL (2.4-3.5); Glucose 109 mg/dL (70-105); Potassium 4.8 mmol/L (3.5-5.1); Protein, Total 6.5 g/dL (6.0-8.3); Sodium 139 mmol/L (136-145)
--- NOTE | 2017-08-18 06:08 | PDOC.FM ---
- Subjective Subjective: Patient stable overnight, no significant changes. Denies CP, SOB, N/V. Yesterday received call from CM stating patient had been denied from [facility] son & are strongly against NH. Told CM they want to take patient home. CM explained that patient will require 24 hour care and asked us to speak with family sometime over the next day. - Objective MAR Reviewed: Yes Vital Signs & Weight: Vital Signs (12 hours) Temp Pulse Resp Pulse Ox 08/18/17 01:26 16 L 08/17/17 19:15 98.1 F 61 16 98 08/17/17 18:54 62 16 96 Weight Admit Weight 154.63 kg Weight 147.4 kg Most Recent Monitor Data Heart Rate from ECG 64 NIBP 119/48 NIBP BP-Mean 85 Respiration from ECG 21 SpO2 95 I&O: 08/16/17 08/17/17 08/18/17 06:59 06:59 06:59 Intake Total 1218 990 90 Output Total 277 450 Balance 941 540 90 Result Diagrams: 08/18/17 03:48 08/18/17 03:48 <Amrit Deluna M - Last Filed: 08/18/17 11:25> - Objective Vital Signs & Weight: Vital Signs (12 hours) Temp Pulse Pulse Pulse Resp BP BP 08/18/17 14:30 66 72 116/49 L 116/53 L 08/18/17 12:00 98.1 F 63 20 08/18/17 11:59 60 18 08/18/17 08:34 98 F 73 20 08/18/17 08:00 98 F 73 20 08/18/17 07:59 62 18 BP Pulse Ox 08/18/17 14:30 08/18/17 12:00 118/59 L 97 08/18/17 11:59 96 08/18/17 08:34 106/44 L 93 L 08/18/17 08:00 93 L 08/18/17 07:59 95 Weight Admit Weight 154.63 kg Weight 147.962 kg Most Recent Monitor Data Heart Rate from ECG 64 NIBP 119/48 NIBP BP-Mean 85 Respiration from ECG 21 SpO2 95 I&O: 08/17/17 08/18/17 08/19/17 06:59 06:59 06:59 Intake Total 990 90 60 Output Total 450 Balance 540 90 60 Result Diagrams: 08/18/17 03:48 08/18/17 03:48 <Lorene Raygoza - Last Filed: 08/18/17 16:28> Phys Exam - Physical Examination Constitutional: NAD HEENT: PERRLA trach collar in place Respiratory: no wheezing, clear to auscultation bilateral Cardiovascular: RRR, no significant murmur Gastrointestinal: soft, non-tender Musculoskeletal: no edema, pulses present Neurological: normal sensation, moves all 4 limbs Psychiatric: normal affect <Amrit Deluna - Last Filed: 08/18/17 11:25> Dx/Plan (1) Acute on chronic respiratory failure with hypoxia and hypercapnia Code(s): J96.21 - ACUTE AND CHRONIC RESPIRATORY FAILURE WITH HYPOXIA; J96.22 - ACUTE AND CHRONIC RESPIRATORY FAILURE WITH HYPERCAPNIA Status: Chronic Plan: Stable at this time. Continue with PT. Patient able to sit on side of bed yesterday for extended time. Placement, will need to discuss with family and encourage NH options so CM can further explore options as patient will be a poor candidate for home care by son who is in high school and who works signal timer. (2) Constipation Code(s): K59.00 - CONSTIPATION, UNSPECIFIED Status: Acute Plan: BM overnight. Will continue with miralax (3) KATE (obstructive sleep apnea) Code(s): G47.33 - OBSTRUCTIVE SLEEP APNEA (ADULT) (PEDIATRIC) Status: Acute (4) Diastolic CHF Code(s): I50.30 - UNSPECIFIED DIASTOLIC (CONGESTIVE) HEART FAILURE Status: Chronic QualifierTitle: Congestive heart failure chronicity: acute on chronic Qualified Code(s): I50.33 - Acute on chronic diastolic (congestive) heart failure (5) Obesity, morbid Code(s): E66.01 - MORBID (SEVERE) OBESITY DUE TO EXCESS CALORIES Status: Chronic (6) Type 2 diabetes mellitus Status: Chronic QualifierTitle: Diabetes mellitus complication status: with skin complications Diabetes mellitus complication detail: with other skin ulcer Diabetes mellitus assisted insulin use: unspecified assisted insulin use status Qualified Code(s): E11.622 - Type 2 diabetes mellitus with other skin ulcer; L98.499 - Non-pressure chronic ulcer of skin of other sites with unspecified severity; L98.499 - Non-pressure chronic ulcer of skin of other sites with unspecified severity; L98.499 - Non-pressure chronic ulcer of skin of other sites with unspecified severity; L98.499 - Non-pressure chronic ulcer of skin of other sites with unspecified severity <Amrit Deluna - Last Filed: 08/18/17 11:25> Attending Addendum - Attending Addendum I personally evaluated the patient and discussed the management with Dr. Deluna I agree with the History, Examination, Assessment and Plan documented above with any addition or exceptions noted below. Chronic respiratory failure secondary to COPD and KATE/OHS- continue trach collar. Severe deconditioning- needs PT at SNF or NH. Not a good candidate to go home without 24 hour in home care. <Lorene Raygoza - Last Filed: 08/18/17 16:28>
[2017-08-18] MEDS: Levothyroxine Sodium 125 MCG TAB PO SCH (06:22)
[2017-08-18] MEDS: Budesonide 0.5 MG/2 ML NEB INH SCH (07:59)
[2017-08-18] MEDS: Docusate Sodium 100 MG/10 ML UDCUP PO SCH ×2 (08:26→21:03)
[2017-08-18] MEDS: Polyethylene Glycol 3350 17 GM Packet PO SCH (08:27)
[2017-08-18] MEDS: Famotidine 20 MG TAB PER TUBE SCH (09:11)
--- NOTE | 2017-08-18 16:48 | PRG ---
DATE OF SERVICE: 08/18/2017 SUBJECTIVE: This morning, she is better, less cough, less shortness of breath; though she is still n ot much. Cough has improved. I am going to discontinue the Pulmicort. OBJECTIVE: VITAL SIGNS: Blood pressure 106/44, sats 98%, 28% FiO2, temperature is 98, respirations 20. CHEST: Decreased breath sounds, bilateral rhonchi. CARDIAC: Normal S1, S2. ABDOMEN: Soft, no masses. LABORATORY DATA: Electrolytes are normal. IMPRESSION: Morbid obesity, sleep apnea, chronic obstructive pulmonary disease, tracheostomy and per cutaneous endoscopic gastrostomy in place. PLAN: We are trying to avoid sending her home, it is very unlikely the family is going to be able to take care of her. Suggested assisted home. We will follow. Discuss with oncology social work.
[2017-08-18] MEDS: Enoxaparin Sodium 40 MG/0.4 ML SYRINGE SC SCH (21:03)
[2017-08-19] MEDS ORDERED: Pancrelipase DR 12000 1 CAP FS PRN (03:32)
[2017-08-19] MEDS ORDERED: Sodium Bicarbonate Tab 325 MG TAB PER TUBE PRN (03:32)
[2017-08-19] MEDS: Levothyroxine Sodium 125 MCG TAB PO SCH (07:20)
[2017-08-19] MEDS: Docusate Sodium 100 MG/10 ML UDCUP PO SCH ×2 (07:43→21:30)
[2017-08-19] MEDS: Polyethylene Glycol 3350 17 GM Packet PO SCH (07:43)
--- NOTE | 2017-08-19 09:12 | PRG ---
DATE OF SERVICE: 08/19/2017 Trach and PEG, appears to be doing reasonably well. PHYSICAL EXAMINATION: VITAL SIGNS: Sats are 100% on 28%, pulse 60, temperature 97, blood pressure 119/43. CHEST: Chest revealed decreased breath sounds, no wheezing. CARDIAC: Normal S1-S2. No gallops. ABDOMEN: Morbid obesity. IMPRESSION: Obstructive sleep apnea. PLAN: We are awaiting placement, neb treatments, supportive care and PT. I will follow.
[2017-08-19] MEDS: Famotidine 20 MG TAB PER TUBE SCH (09:53)
--- NOTE | 2017-08-19 10:45 | PDOC.FM ---
- Subjective Subjective: Patient doing well overnight. Standing now with PT, Denies pain anywhere. No N/ V. Discussion with patient about placement: patient agreed to explore options in NH facilities. - Objective MAR Reviewed: Yes Vital Signs & Weight: Vital Signs (12 hours) Temp Pulse Resp BP Pulse Ox 08/19/17 08:23 62 16 100 08/19/17 08:16 97.6 F 64 20 95 08/19/17 07:45 97.6 F 64 20 119/43 L 98 08/19/17 04:13 98.6 F 70 20 101/49 L 93 L 08/19/17 00:38 65 16 98 08/19/17 00:20 98.8 F 66 18 111/48 L 98 Weight Admit Weight 154.63 kg Weight 147.962 kg Most Recent Monitor Data Heart Rate from ECG 64 NIBP 119/48 NIBP BP-Mean 85 Respiration from ECG 21 SpO2 95 I&O: 08/18/17 08/19/17 08/20/17 06:59 06:59 06:59 Intake Total 90 990 30 Balance 90 990 30 Result Diagrams: 08/18/17 03:48 08/18/17 03:48 <Amrit Deluna M - Last Filed: 08/19/17 10:42> - Objective Vital Signs & Weight: Vital Signs (12 hours) Temp Pulse Resp BP Pulse Ox 08/19/17 13:17 63 16 97 08/19/17 12:00 97.6 F 78 20 95/51 L 96 08/19/17 08:23 62 16 100 08/19/17 08:16 97.6 F 64 20 95 08/19/17 07:45 97.6 F 64 20 119/43 L 98 Weight Admit Weight 154.63 kg Weight 147.962 kg Most Recent Monitor Data Heart Rate from ECG 64 NIBP 119/48 NIBP BP-Mean 85 Respiration from ECG 21 SpO2 95 I&O: 08/18/17 08/19/17 08/20/17 06:59 06:59 06:59 Intake Total 90 990 90 Balance 90 990 90 Result Diagrams: 08/18/17 03:48 08/18/17 03:48 <Lorene Raygoza - Last Filed: 08/19/17 16:32> Phys Exam - Physical Examination Constitutional: NAD trach in place midline Respiratory: no wheezing, clear to auscultation bilateral Cardiovascular: RRR, no significant murmur Gastrointestinal: soft, non-tender Musculoskeletal: no edema, pulses present Neurological: normal sensation, moves all 4 limbs Psychiatric: normal affect, A&O x 3 Skin: no rash <Amrit Deluna - Last Filed: 08/19/17 10:42> Dx/Plan (1) Acute on chronic respiratory failure with hypoxia and hypercapnia Code(s): J96.21 - ACUTE AND CHRONIC RESPIRATORY FAILURE WITH HYPOXIA; J96.22 - ACUTE AND CHRONIC RESPIRATORY FAILURE WITH HYPERCAPNIA Status: Chronic Plan: Stable at this time. Continue with PT. Patient able to stand with PT yesterday. Placement, Discussed with patient and family via phone and they agreed to explore NH options. (2) Constipation Code(s): K59.00 - CONSTIPATION, UNSPECIFIED Status: Acute Plan: continue with miralax (3) KATE (obstructive sleep apnea) Code(s): G47.33 - OBSTRUCTIVE SLEEP APNEA (ADULT) (PEDIATRIC) Status: Acute (4) Diastolic CHF Code(s): I50.30 - UNSPECIFIED DIASTOLIC (CONGESTIVE) HEART FAILURE Status: Chronic QualifierTitle: Congestive heart failure chronicity: acute on chronic Qualified Code(s): I50.33 - Acute on chronic diastolic (congestive) heart failure (5) Obesity, morbid Code(s): E66.01 - MORBID (SEVERE) OBESITY DUE TO EXCESS CALORIES Status: Chronic (6) Type 2 diabetes mellitus Status: Chronic QualifierTitle: Diabetes mellitus complication status: with skin complications Diabetes mellitus complication detail: with other skin ulcer Diabetes mellitus correction insulin use: unspecified correction insulin use status Qualified Code(s): E11.622 - Type 2 diabetes mellitus with other skin ulcer; L98.499 - Non-pressure chronic ulcer of skin of other sites with unspecified severity; L98.499 - Non-pressure chronic ulcer of skin of other sites with unspecified severity; L98.499 - Non-pressure chronic ulcer of skin of other sites with unspecified severity; L98.499 - Non-pressure chronic ulcer of skin of other sites with unspecified severity <Amrit Deluna - Last Filed: 08/19/17 10:42> Attending Addendum - Attending Addendum I personally evaluated the patient and discussed the management with Dr. Deluna I agree with the History, Examination, Assessment and Plan documented above with any addition or exceptions noted below. Chronic respiratory failure secondary to KATE/OHS and COPD s/p trach- stable for transfer to NH once placement established Severe deconditioning and morbid obesity- PT and NH placement. <Lorene Raygoza - Last Filed: 08/19/17 16:32>
[2017-08-19] MEDS: Acetaminophen 650 MG/20.3 ML UDCUP PER TUBE PRN (15:27)
[2017-08-19] MEDS: Enoxaparin Sodium 40 MG/0.4 ML SYRINGE SC SCH (21:30)
[2017-08-20] MEDS: Acetaminophen 650 MG/20.3 ML UDCUP PER TUBE PRN ×3 (01:35→21:12)
[2017-08-20] MEDS: Levothyroxine Sodium 125 MCG TAB PO SCH (05:52)
--- NOTE | 2017-08-20 06:32 | PDOC.FM ---
- Subjective Subjective: No complaints or concerns at this time. Denies CP, SOB, N/V. - Objective MAR Reviewed: Yes Vital Signs & Weight: Vital Signs (12 hours) Temp Pulse Resp BP Pulse Ox 08/20/17 04:52 98.0 F 58 L 16 109/49 L 93 L 08/20/17 00:00 98.0 F 68 16 114/39 L 98 08/19/17 20:00 98.4 F 61 16 130/63 98 08/19/17 19:07 63 20 100 Weight Admit Weight 154.63 kg Weight 147.962 kg Most Recent Monitor Data Heart Rate from ECG 64 NIBP 119/48 NIBP BP-Mean 85 Respiration from ECG 21 SpO2 95 I&O: 08/18/17 08/19/17 08/20/17 06:59 06:59 06:59 Intake Total 90 990 180 Balance 90 990 180 Result Diagrams: 08/18/17 03:48 08/18/17 03:48 <Amrit Deluna - Last Filed: 08/20/17 08:54> - Objective Vital Signs & Weight: Vital Signs (12 hours) Temp Pulse Pulse Pulse Resp BP BP 08/20/17 19:00 98.0 F 62 20 08/20/17 18:56 66 16 08/20/17 16:00 97.2 F L 66 18 08/20/17 13:22 70 20 08/20/17 12:00 97.7 F 68 22 H 08/20/17 09:32 59 L 75 89/39 L 112/56 L BP Pulse Ox 08/20/17 19:00 116/66 100 08/20/17 18:56 97 08/20/17 16:00 106/53 L 97 08/20/17 13:22 98 08/20/17 12:00 109/40 L 92 L 08/20/17 09:32 Weight Admit Weight 154.63 kg Weight 147.962 kg Most Recent Monitor Data Heart Rate from ECG 64 NIBP 119/48 NIBP BP-Mean 85 Respiration from ECG 21 SpO2 95 I&O: 08/19/17 08/20/17 08/21/17 06:59 06:59 06:59 Intake Total 990 1140 90 Balance 990 1140 90 Result Diagrams: 08/18/17 03:48 08/18/17 03:48 <Lorene Raygoza - Last Filed: 08/20/17 21:22> Phys Exam - Physical Examination Constitutional: NAD trach collar in place Respiratory: no wheezing, clear to auscultation bilateral Cardiovascular: RRR, no significant murmur Gastrointestinal: soft, non-tender Musculoskeletal: no edema, pulses present Neurological: non-focal, moves all 4 limbs <Amrit Deluna - Last Filed: 08/20/17 08:54> Dx/Plan (1) Acute on chronic respiratory failure with hypoxia and hypercapnia Code(s): J96.21 - ACUTE AND CHRONIC RESPIRATORY FAILURE WITH HYPOXIA; J96.22 - ACUTE AND CHRONIC RESPIRATORY FAILURE WITH HYPERCAPNIA Status: Chronic Plan: Stable at this time. Continue with PT to improve mobility, still only able to tolerate minimal mobility Placement, awaiting NH response (2) Constipation Code(s): K59.00 - CONSTIPATION, UNSPECIFIED Status: Acute Plan: continue with miralax (3) KATE (obstructive sleep apnea) Code(s): G47.33 - OBSTRUCTIVE SLEEP APNEA (ADULT) (PEDIATRIC) Status: Acute (4) Diastolic CHF Code(s): I50.30 - UNSPECIFIED DIASTOLIC (CONGESTIVE) HEART FAILURE Status: Chronic QualifierTitle: Congestive heart failure chronicity: acute on chronic Qualified Code(s): I50.33 - Acute on chronic diastolic (congestive) heart failure (5) Obesity, morbid Code(s): E66.01 - MORBID (SEVERE) OBESITY DUE TO EXCESS CALORIES Status: Chronic (6) Type 2 diabetes mellitus Status: Chronic QualifierTitle: Diabetes mellitus complication status: with skin complications Diabetes mellitus complication detail: with other skin ulcer Diabetes mellitus fci insulin use: unspecified fci insulin use status Qualified Code(s): E11.622 - Type 2 diabetes mellitus with other skin ulcer; L98.499 - Non-pressure chronic ulcer of skin of other sites with unspecified severity; L98.499 - Non-pressure chronic ulcer of skin of other sites with unspecified severity; L98.499 - Non-pressure chronic ulcer of skin of other sites with unspecified severity; L98.499 - Non-pressure chronic ulcer of skin of other sites with unspecified severity <Amrit Deluna - Last Filed: 08/20/17 08:54> Attending Addendum - Attending Addendum I personally evaluated the patient and discussed the management with Dr. Deluna. I agree with the History, Examination, Assessment and Plan documented above with any addition or exceptions noted below. Chronic resp failure secondary to KATE/OHS and COPD Deconditioning Morbid Obesity -Awaiting NH placement for PT and trach/PEG care. <Lorene Raygoza - Last Filed: 08/20/17 21:22>
--- NOTE | 2017-08-20 08:46 | PRG ---
DATE OF SERVICE: 08/20/2017 Ms. Springer this morning continues to be lying in bed. Denies any difficulty breathing. PHYSICAL EXAMINATION: VITAL SIGNS: Sats 96% on 2 liters, temperature is 97%, blood pressure 108/57. CHEST: Chest reveals decreased breath sounds, no wheezing. CARDIAC: Normal S1, S2. IMPRESSION: 1. Morbid obesity. 2. Severe deconditioning. 3. Diabetes. Continue PT and eventually placement. Downsize trach once she is mobilized.
[2017-08-20] MEDS: Polyethylene Glycol 3350 17 GM Packet PO SCH (08:55)
[2017-08-20] MEDS: Docusate Sodium 100 MG/10 ML UDCUP PO SCH ×2 (08:56→20:52)
[2017-08-20] MEDS: Famotidine 20 MG TAB PER TUBE SCH (08:56)
[2017-08-20] MEDS: Enoxaparin Sodium 40 MG/0.4 ML SYRINGE SC SCH (20:58)
[2017-08-21] MEDS: Levothyroxine Sodium 125 MCG TAB PO SCH (05:16)
--- NOTE | 2017-08-21 08:02 | PDOC.FM ---
- Subjective Subjective: No acute events overnight. Pt reports some discomfort around trach site. Per nurse, some blood around trach site, pt instructed on oral suction and is using appropriately. - Objective Vital Signs & Weight: Vital Signs (12 hours) Temp Pulse Resp BP Pulse Ox 08/21/17 07:51 67 16 94 L 08/21/17 07:33 98.0 F 64 20 116/55 L 98 08/21/17 04:00 98.0 F 67 18 99/39 L 97 08/21/17 00:35 61 17 97 08/21/17 00:00 97.8 F 66 18 96/40 L 97 08/20/17 20:00 98.0 F 62 20 100 Weight Admit Weight 154.63 kg Weight 147.962 kg Most Recent Monitor Data Heart Rate from ECG 64 NIBP 119/48 NIBP BP-Mean 85 Respiration from ECG 21 SpO2 95 I&O: 08/20/17 08/21/17 08/22/17 06:59 06:59 06:59 Intake Total 1140 1260 Output Total 300 Balance 1140 960 Result Diagrams: 08/18/17 03:48 08/18/17 03:48 Phys Exam - Physical Examination Constitutional: NAD Morbidly obese HEENT: PERRLA, sclera anicteric trach in place Neck: no nodes, no JVD Respiratory: no wheezing, no rales scattered rhonchi Cardiovascular: RRR, no significant murmur, no rub Gastrointestinal: soft, non-tender, no distention, positive bowel sounds Musculoskeletal: no edema, pulses present Neurological: non-focal, moves all 4 limbs Skin: no rash Dx/Plan (1) Chronic respiratory failure with hypoxia Code(s): J96.11 - CHRONIC RESPIRATORY FAILURE WITH HYPOXIA Status: Acute (2) Severe muscle deconditioning Code(s): R29.898 - OTH SYMPTOMS AND SIGNS INVOLVING THE MUSCULOSKELETAL SYSTEM Status: Acute (3) Constipation Code(s): K59.00 - CONSTIPATION, UNSPECIFIED Status: Acute (4) Obesity, morbid Code(s): E66.01 - MORBID (SEVERE) OBESITY DUE TO EXCESS CALORIES Status: Chronic (5) Type 2 diabetes mellitus Status: Chronic Qualifiers: Diabetes mellitus complication status: with skin complications Diabetes mellitus complication detail: with other skin ulcer Diabetes mellitus long term care social worker insulin use: unspecified long term care social worker insulin use status Qualified Code(s): E11.622 - Type 2 diabetes mellitus with other skin ulcer; L98.499 - Non- pressure chronic ulcer of skin of other sites with unspecified severity; L98.499 - Non-pressure chronic ulcer of skin of other sites with unspecified severity; L98.499 - Non-pressure chronic ulcer of skin of other sites with unspecified severity; L98.499 - Non-pressure chronic ulcer of skin of other sites with unspecified severity - Plan Plan: continue trach care pt is stable and awaiting placement
[2017-08-21] MEDS: Polyethylene Glycol 3350 17 GM Packet PO SCH (09:58)
[2017-08-21] MEDS: Docusate Sodium 100 MG/10 ML UDCUP PO SCH ×2 (09:58→21:40)
[2017-08-21] MEDS: Famotidine 20 MG TAB PER TUBE SCH (09:58)
[2017-08-21] MEDS: Acetaminophen 650 MG/20.3 ML UDCUP PER TUBE PRN ×2 (15:49→21:39)
--- NOTE | 2017-08-21 19:35 | ADD-PRG ---
ADDENDUM DATE OF SERVICE: 08/21/2017 Please see the note from Dr. Jaguar Hughes for which I concur. The patient was seen, examined, ernie luated and discussed with resident by bedside. Overnight, the patient has done well without any belen r changes and does have quite a bit of mucus around the trach site and the upper rhonchi, but otherwi se has been fairly stable. She is still getting tube feeds, I see so big issues continue respiratory support and discussed things like placement on her is try and finding an LTAC or detention that c ould potentially take her.
--- NOTE | 2017-08-21 21:17 | PRG ---
DATE OF SERVICE: 08/21/2017 OBJECTIVE: VITAL SIGNS: Ms. Springer is afebrile. Heart rates in the 60s, respiratory rates in the teens to low 20s, oximetry is in the 90s, blood pressure is 108/50. LUNGS: Clear. HEART: Regular rhythm. ABDOMEN: Soft. LABORATORY DATA: There is no new lab. IMPRESSION: 1. Chronic respiratory failure secondary to severe obesity hypoventilation syndrome. A goal O2 sat with oxygen administration needs to be 88% to 92%. 2. Extreme deconditioning. She will need placement. I would suspect she will have a tracheostomy for life. I have little to add at this point, but we will continue to follow.
[2017-08-21] MEDS: Enoxaparin Sodium 40 MG/0.4 ML SYRINGE SC SCH (21:39)
[2017-08-22] MEDS: Levothyroxine Sodium 125 MCG TAB PO SCH (06:01)
--- NOTE | 2017-08-22 08:38 | PDOC.FM ---
- Subjective Subjective: No acute events overnight. Pt reports she feels a little better thisd morning. No CP, SOB, NVDC. - Objective Vital Signs & Weight: Vital Signs (12 hours) Temp Pulse Resp BP Pulse Ox 08/22/17 07:52 64 16 94 L 08/22/17 07:24 98.2 F 70 16 119/62 95 08/22/17 04:00 98.3 F 77 20 115/54 L 96 08/22/17 00:43 97 08/22/17 00:00 98.6 F 67 20 103/36 L 94 L Weight Admit Weight 154.63 kg Weight 147.962 kg Most Recent Monitor Data Heart Rate from ECG 64 NIBP 119/48 NIBP BP-Mean 85 Respiration from ECG 21 SpO2 95 I&O: 08/21/17 08/22/17 08/23/17 06:59 06:59 06:59 Intake Total 1260 2049 Output Total 300 Balance 960 2049 Result Diagrams: 08/18/17 03:48 08/18/17 03:48 Phys Exam - Physical Examination Constitutional: NAD HEENT: PERRLA, sclera anicteric Neck: no JVD Respiratory: no wheezing, no rales, clear to auscultation bilateral scattered rhonchi Cardiovascular: RRR, no significant murmur, no rub Gastrointestinal: soft, non-tender, no distention, positive bowel sounds Musculoskeletal: no edema, pulses present Neurological: non-focal, normal sensation Dx/Plan (1) Chronic respiratory failure with hypoxia Code(s): J96.11 - CHRONIC RESPIRATORY FAILURE WITH HYPOXIA Status: Acute (2) Severe muscle deconditioning Code(s): R29.898 - OTH SYMPTOMS AND SIGNS INVOLVING THE MUSCULOSKELETAL SYSTEM Status: Acute (3) Constipation Code(s): K59.00 - CONSTIPATION, UNSPECIFIED Status: Acute (4) Obesity, morbid Code(s): E66.01 - MORBID (SEVERE) OBESITY DUE TO EXCESS CALORIES Status: Chronic (5) Type 2 diabetes mellitus Status: Chronic Qualifiers: Diabetes mellitus complication status: with skin complications Diabetes mellitus complication detail: with other skin ulcer Diabetes mellitus mcfp insulin use: unspecified moth exterminator insulin use status Qualified Code(s): E11.622 - Type 2 diabetes mellitus with other skin ulcer; L98.499 - Non- pressure chronic ulcer of skin of other sites with unspecified severity; L98.499 - Non-pressure chronic ulcer of skin of other sites with unspecified severity; L98.499 - Non-pressure chronic ulcer of skin of other sites with unspecified severity; L98.499 - Non-pressure chronic ulcer of skin of other sites with unspecified severity - Plan Plan: Overall, pt is ready for d/c to NH, LTAC, rehab facility etc to receive trach care and rehab for deconditioning. Spoke with son and rehab rep yesterday, son will meet with case management tomorrow to discuss placement. Acute issues have resolved Continue plan of care.
[2017-08-22] MEDS: Famotidine 20 MG TAB PER TUBE SCH (10:08)
[2017-08-22] MEDS: Docusate Sodium 100 MG/10 ML UDCUP PO SCH ×2 (10:08→20:56)
[2017-08-22] MEDS: Polyethylene Glycol 3350 17 GM Packet PO SCH (10:09)
--- NOTE | 2017-08-22 14:50 | ADD-PRG ---
DATE OF SERVICE: 08/22/2017 Please see the note from Dr. Hughes for which I concur. The patient was seen and evaluated, examined and discussed this with the residents by bedside. Really no change in Mrs. Springer status as is sta ble on current level of oxygen through the trach. Still waiting on that to mature, so still getting fed through a feeding tube and really otherwise no other major changes. The biggest issue on her is going to be the side placement. No change on exam.
[2017-08-22] MEDS: Enoxaparin Sodium 40 MG/0.4 ML SYRINGE SC SCH (20:56)
[2017-08-22] MEDS: Acetaminophen 650 MG/20.3 ML UDCUP PER TUBE PRN (21:52)
--- NOTE | 2017-08-22 22:57 | PRG ---
DATE OF SERVICE: 08/22/2017 SUBJECTIVE: Gian has no complaints. OBJECTIVE: VITAL SIGNS: She is afebrile, heart rate 68, respiratory rates in the 20s, oximetries in the mid 90s , blood pressure 121/55. LUNGS: Clear and distant. HEART: Regular rhythm. IMPRESSION: 1. Chronic respiratory failure, status post tracheostomy. 2. Life-threatening obesity. PLAN: Placement.
[2017-08-23] MEDS: Levothyroxine Sodium 125 MCG TAB PO SCH (05:58)
[2017-08-23] MEDS: Famotidine 20 MG TAB PER TUBE SCH (08:46)
[2017-08-23] MEDS: Polyethylene Glycol 3350 17 GM Packet PO SCH (08:46)
[2017-08-23] MEDS: Docusate Sodium 100 MG/10 ML UDCUP PO SCH ×2 (08:46→20:57)
--- NOTE | 2017-08-23 10:02 | PDOC.FM ---
- Subjective Subjective: No complaints or concerns overnight, no CP, N/V, SOB. Only NH in [facility] that has not denied her is [facility] and they say she has an outstanding debt that she must pay before they accept her. All other NH in [facility] have denied acceptance. - Objective MAR Reviewed: Yes Vital Signs & Weight: Vital Signs (12 hours) Temp Pulse Resp BP Pulse Ox 08/23/17 07:33 97.6 F 73 18 113/63 100 08/23/17 06:00 71 18 117/56 L 100 08/23/17 04:21 98.1 F 73 18 108/53 L 100 08/23/17 02:04 85 18 109/45 L 98 08/23/17 01:02 100 08/23/17 00:28 98.2 F 71 18 97/37 L 99 Weight Admit Weight 154.63 kg Weight 147.962 kg Most Recent Monitor Data Heart Rate from ECG 64 NIBP 119/48 NIBP BP-Mean 85 Respiration from ECG 21 SpO2 95 I&O: 08/22/17 08/23/17 08/24/17 06:59 06:59 06:59 Intake Total 2049 1350 30 Balance 2049 1350 30 Result Diagrams: 08/18/17 03:48 08/18/17 03:48 <Amrit Deluna - Last Filed: 08/23/17 10:00> - Objective Vital Signs & Weight: Vital Signs (12 hours) Temp Pulse Resp BP BP BP Pulse Ox 08/23/17 20:00 98.4 F 69 20 145/87 H 98 08/23/17 18:49 63 18 96 08/23/17 15:30 97.8 F 78 19 93/78 08/23/17 14:02 65 19 91 L 08/23/17 12:34 127/69 109/59 L 08/23/17 11:58 97.6 F 63 20 109/59 L 97 Weight Admit Weight 154.63 kg Weight 147.962 kg Most Recent Monitor Data Heart Rate from ECG 64 NIBP 119/48 NIBP BP-Mean 85 Respiration from ECG 21 SpO2 95 I&O: 08/22/17 08/23/17 08/24/17 06:59 06:59 06:59 Intake Total 2049 1350 730 Output Total 450 Balance 2049 1350 280 Result Diagrams: 08/18/17 03:48 08/18/17 03:48 <Maribel Siddiqui - Last Filed: 08/23/17 22:20> Phys Exam - Physical Examination Constitutional: NAD Neck: no JVD, full ROM Respiratory: no wheezing, clear to auscultation bilateral Cardiovascular: RRR, no significant murmur Gastrointestinal: soft, non-tender Musculoskeletal: no edema, pulses present Neurological: normal sensation, moves all 4 limbs Psychiatric: normal affect, A&O x 3 <Amrit Deluna - Last Filed: 08/23/17 10:00> Dx/Plan (1) Acute on chronic respiratory failure with hypoxia and hypercapnia Code(s): J96.21 - ACUTE AND CHRONIC RESPIRATORY FAILURE WITH HYPOXIA; J96.22 - ACUTE AND CHRONIC RESPIRATORY FAILURE WITH HYPERCAPNIA Status: Chronic Plan: Stable at this time. Placement issues (2) Constipation Code(s): K59.00 - CONSTIPATION, UNSPECIFIED Status: Acute Plan: continue with miralax (3) KATE (obstructive sleep apnea) Code(s): G47.33 - OBSTRUCTIVE SLEEP APNEA (ADULT) (PEDIATRIC) Status: Acute (4) Diastolic CHF Code(s): I50.30 - UNSPECIFIED DIASTOLIC (CONGESTIVE) HEART FAILURE Status: Chronic QualifierTitle: Congestive heart failure chronicity: acute on chronic Qualified Code(s): I50.33 - Acute on chronic diastolic (congestive) heart failure (5) Obesity, morbid Code(s): E66.01 - MORBID (SEVERE) OBESITY DUE TO EXCESS CALORIES Status: Chronic (6) Type 2 diabetes mellitus Status: Chronic QualifierTitle: Diabetes mellitus complication status: with skin complications Diabetes mellitus complication detail: with other skin ulcer 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 insulin use: unspecified skilled nursing insulin use status Qualified Code(s): E11.622 - Type 2 diabetes mellitus with other skin ulcer; L98.499 - Non-pressure chronic ulcer of skin of other sites with unspecified severity; L98.499 - Non-pressure chronic ulcer of skin of other sites with unspecified severity; L98.499 - Non-pressure chronic ulcer of skin of other sites with unspecified severity; L98.499 - Non-pressure chronic ulcer of skin of other sites with unspecified severity <Amrit Deluna - Last Filed: 08/23/17 10:00> Attending Addendum - Attending Addendum I personally evaluated the patient and discussed the management with Dr. Deluna. I agree with the History, Examination, Assessment and Plan documented above with any addition or exceptions noted below. The patient is stable. We are waiting on placement. Case management is working on discharge planning. Noted small amount of blood being suctioned from mouth that comes after coughing. Vitals are stable. She denies complaints. <Maribel Siddiqui - Last Filed: 08/23/17 22:20>
--- NOTE | 2017-08-23 12:46 | PRG ---
DATE OF SERVICE: 08/23/2017 SUBJECTIVE: Ms. Love Springer, this morning, awake, alert, responsive. No pain, no shortness of b reath. PHYSICAL EXAMINATION: VITAL SIGNS: Blood pressure 113/63, saturations are 100%, 28% FIO2, temperature 97.6, respirations 1 8. CHEST: Decreased breath sounds, no wheezing. CARDIAC: Normal S1, S2. No gallops. ABDOMEN: Soft, no masses. IMPRESSION: Morbid obesity, chronic obstructive pulmonary disease, obstructive sleep apnea, status p ost trach and PEG. PLAN: Placement subsequently downsizing the trach. PT and supportive care. We will follow.
[2017-08-23] MEDS: Acetaminophen 650 MG/20.3 ML UDCUP PER TUBE PRN (20:56)
[2017-08-23] MEDS: Enoxaparin Sodium 40 MG/0.4 ML SYRINGE SC SCH (20:57)
[2017-08-24] MEDS: Levothyroxine Sodium 125 MCG TAB PO SCH (05:48)
--- NOTE | 2017-08-24 08:40 | PRG ---
DATE OF SERVICE: 08/24/2017 She is awake, alert, responsive, lying in bed. PHYSICAL EXAMINATION: VITAL SIGNS: Sats 93%, pulse 70, blood pressure 130/80 without any difficulty breathing. CHEST: Chest reveals decreased breath sounds, no wheezing. CARDIAC: Normal S1, S2. IMPRESSION: 1. Chronic obstructive pulmonary disease with respiratory failure. 2. Morbid obesity. 3. Pneumothorax. 4. Sleep apnea. 5. Trach and PEG in place. PLAN: reed worker in the process of trying to find a placement for the patient. Otherwise, continue aggressive PT.
[2017-08-24] MEDS: Acetaminophen 650 MG/20.3 ML UDCUP PER TUBE PRN ×2 (09:09→19:57)
[2017-08-24] MEDS: Polyethylene Glycol 3350 17 GM Packet PO SCH (09:09)
[2017-08-24] MEDS: Famotidine 20 MG TAB PER TUBE SCH (09:09)
[2017-08-24] MEDS: Docusate Sodium 100 MG/10 ML UDCUP PO SCH ×2 (09:09→20:05)
--- NOTE | 2017-08-24 11:28 | PDOC.FM ---
- Subjective Subjective: Patient stable overnight. Sitting in chair by bed this morning. No CP, SOB, N/ V. - Objective MAR Reviewed: Yes Vital Signs & Weight: Vital Signs (12 hours) Temp Pulse Resp BP Pulse Ox 08/24/17 08:00 97.6 F 59 L 18 94/40 L 99 08/24/17 07:28 73 16 100 08/24/17 04:00 98.5 F 59 L 20 109/65 98 08/24/17 00:12 98.6 F 62 20 117/51 L 100 08/23/17 23:44 61 20 98 Weight Admit Weight 154.63 kg Weight 147.962 kg Most Recent Monitor Data Heart Rate from ECG 64 NIBP 119/48 NIBP BP-Mean 85 Respiration from ECG 21 SpO2 95 I&O: 08/23/17 08/24/17 08/25/17 06:59 06:59 06:59 Intake Total 1350 1630 30 Output Total 450 Balance 1350 1180 30 Result Diagrams: 08/18/17 03:48 08/18/17 03:48 <Amrit Deluna - Last Filed: 08/24/17 11:26> - Objective Vital Signs & Weight: Vital Signs (12 hours) Temp Pulse Resp BP Pulse Ox 08/25/17 08:47 70 16 08/25/17 08:00 97.6 F 66 18 125/60 99 08/25/17 04:23 97.6 F 82 18 118/56 L 97 08/25/17 00:31 68 18 100 08/25/17 00:01 98.9 F 65 18 104/60 98 Weight Admit Weight 154.63 kg Weight 145.4 kg Most Recent Monitor Data Heart Rate from ECG 64 NIBP 119/48 NIBP BP-Mean 85 Respiration from ECG 21 SpO2 95 I&O: 08/24/17 08/25/17 08/26/17 06:59 06:59 06:59 Intake Total 1630 820 30 Output Total 450 Balance 1180 820 30 Result Diagrams: 08/18/17 03:48 08/18/17 03:48 <Maribel Siddiqui - Last Filed: 08/25/17 11:12> Phys Exam - Physical Examination Constitutional: NAD HEENT: PERRLA, oral pharynx no lesions trach in place Respiratory: no wheezing, clear to auscultation bilateral Cardiovascular: RRR, no significant murmur Gastrointestinal: soft, non-tender Musculoskeletal: no edema, pulses present Neurological: non-focal, moves all 4 limbs Psychiatric: normal affect, A&O x 3 <Amrit Deluna - Last Filed: 08/24/17 11:26> Dx/Plan (1) Acute on chronic respiratory failure with hypoxia and hypercapnia Code(s): J96.21 - ACUTE AND CHRONIC RESPIRATORY FAILURE WITH HYPOXIA; J96.22 - ACUTE AND CHRONIC RESPIRATORY FAILURE WITH HYPERCAPNIA Status: Chronic Plan: Stable at this time. Placement issues, plan to discuss with family today when gets off work. Appreciate CM assistance. (2) Constipation Code(s): K59.00 - CONSTIPATION, UNSPECIFIED Status: Acute Plan: continue with miralax (3) KATE (obstructive sleep apnea) Code(s): G47.33 - OBSTRUCTIVE SLEEP APNEA (ADULT) (PEDIATRIC) Status: Acute (4) Diastolic CHF Code(s): I50.30 - UNSPECIFIED DIASTOLIC (CONGESTIVE) HEART FAILURE Status: Chronic QualifierTitle: Congestive heart failure chronicity: acute on chronic Qualified Code(s): I50.33 - Acute on chronic diastolic (congestive) heart failure (5) Obesity, morbid Code(s): E66.01 - MORBID (SEVERE) OBESITY DUE TO EXCESS CALORIES Status: Chronic (6) Type 2 diabetes mellitus Status: Chronic QualifierTitle: Diabetes mellitus complication status: with skin complications Diabetes mellitus complication detail: with other skin ulcer Diabetes mellitus longterm insulin use: unspecified longterm insulin use status Qualified Code(s): E11.622 - Type 2 diabetes mellitus with other skin ulcer; L98.499 - Non-pressure chronic ulcer of skin of other sites with unspecified severity; L98.499 - Non-pressure chronic ulcer of skin of other sites with unspecified severity; L98.499 - Non-pressure chronic ulcer of skin of other sites with unspecified severity; L98.499 - Non-pressure chronic ulcer of skin of other sites with unspecified severity <Amrit Deluna - Last Filed: 08/24/17 11:26> Attending Addendum - Attending Addendum I personally evaluated the patient and discussed the management with Dr. Deluna on 08/24/17. I agree with the History, Examination, Assessment and Plan documented above with any addition or exceptions noted below. The patient continues to work with therapy. Family is now wanting to take pt home. Will try to convert from continuous feeds to bolus feeds. <Maribel Siddiqui - Last Filed: 08/25/17 11:12>
[2017-08-24] MEDS: Enoxaparin Sodium 40 MG/0.4 ML SYRINGE SC SCH (20:01)
[2017-08-25] MEDS: Levothyroxine Sodium 125 MCG TAB PO SCH (05:28)
[2017-08-25] MEDS: Polyethylene Glycol 3350 17 GM Packet PO SCH (07:41)
[2017-08-25] MEDS: Docusate Sodium 100 MG/10 ML UDCUP PO SCH ×2 (07:41→21:31)
--- NOTE | 2017-08-25 09:20 | PDOC.FM ---
- Subjective Subjective: Patient stable overnight. Still working on discharge plans to home as she has been declined from every location except [facility] which they refuse to go to. No CP, N/V overnight. - Objective MAR Reviewed: Yes Vital Signs & Weight: Vital Signs (12 hours) Temp Pulse Resp BP Pulse Ox 08/25/17 08:47 70 16 08/25/17 08:00 97.6 F 66 18 125/60 99 08/25/17 04:23 97.6 F 82 18 118/56 L 97 08/25/17 00:31 68 18 100 08/25/17 00:01 98.9 F 65 18 104/60 98 Weight Admit Weight 154.63 kg Weight 145.4 kg Most Recent Monitor Data Heart Rate from ECG 64 NIBP 119/48 NIBP BP-Mean 85 Respiration from ECG 21 SpO2 95 I&O: 08/24/17 08/25/17 08/26/17 06:59 06:59 06:59 Intake Total 1630 820 30 Output Total 450 Balance 1180 820 30 Result Diagrams: 08/18/17 03:48 08/18/17 03:48 <Amrit Deluna - Last Filed: 08/26/17 10:46> - Objective Vital Signs & Weight: Vital Signs (12 hours) Temp Pulse Resp BP Pulse Ox 08/26/17 08:00 98.5 F 63 20 109/69 94 L 08/26/17 07:08 96 08/26/17 07:07 65 18 96 08/26/17 06:27 98.0 F 63 20 107/56 L 92 L 08/26/17 00:00 98.6 F 73 20 91/57 L 95 Weight Admit Weight 154.63 kg Weight 145.4 kg Most Recent Monitor Data Heart Rate from ECG 64 NIBP 119/48 NIBP BP-Mean 85 Respiration from ECG 21 SpO2 95 I&O: 08/25/17 08/26/17 08/27/17 06:59 06:59 06:59 Intake Total 820 1977 297 Balance 820 1977 297 Result Diagrams: 08/26/17 04:47 08/18/17 03:48 <Maribel Siddiqui - Last Filed: 08/26/17 10:56> Phys Exam - Physical Examination trach in place Respiratory: no wheezing, clear to auscultation bilateral Cardiovascular: RRR, no significant murmur Gastrointestinal: soft, non-tender Neurological: normal sensation, moves all 4 limbs Psychiatric: normal affect <Amrit Deluna - Last Filed: 08/26/17 10:46> Dx/Plan (1) Acute on chronic respiratory failure with hypoxia and hypercapnia Code(s): J96.21 - ACUTE AND CHRONIC RESPIRATORY FAILURE WITH HYPOXIA; J96.22 - ACUTE AND CHRONIC RESPIRATORY FAILURE WITH HYPERCAPNIA Status: Chronic Plan: Stable at this time. Placement issues, plan to discuss with family today when gets off work. Appreciate CM assistance. (2) Constipation Code(s): K59.00 - CONSTIPATION, UNSPECIFIED Status: Acute Plan: continue with miralax (3) KATE (obstructive sleep apnea) Code(s): G47.33 - OBSTRUCTIVE SLEEP APNEA (ADULT) (PEDIATRIC) Status: Acute (4) Diastolic CHF Code(s): I50.30 - UNSPECIFIED DIASTOLIC (CONGESTIVE) HEART FAILURE Status: Chronic QualifierTitle: Congestive heart failure chronicity: acute on chronic Qualified Code(s): I50.33 - Acute on chronic diastolic (congestive) heart failure (5) Obesity, morbid Code(s): E66.01 - MORBID (SEVERE) OBESITY DUE TO EXCESS CALORIES Status: Chronic (6) Type 2 diabetes mellitus Status: Chronic QualifierTitle: Diabetes mellitus complication status: with skin complications Diabetes mellitus complication detail: with other skin ulcer Diabetes mellitus dedicated intermodal truck driver insulin use: unspecified dedicated intermodal truck driver insulin use status Qualified Code(s): E11.622 - Type 2 diabetes mellitus with other skin ulcer; L98.499 - Non-pressure chronic ulcer of skin of other sites with unspecified severity; L98.499 - Non-pressure chronic ulcer of skin of other sites with unspecified severity; L98.499 - Non-pressure chronic ulcer of skin of other sites with unspecified severity; L98.499 - Non-pressure chronic ulcer of skin of other sites with unspecified severity <Amrit Deluna - Last Filed: 08/26/17 10:46> Attending Addendum - Attending Addendum I personally evaluated the patient and discussed the management with Dr. Deluna on 08/25/17. I agree with the History, Examination, Assessment and Plan documented above with any addition or exceptions noted below. The patient will be transferred to a medical bed. Her family needs to be taught to help with trach care. Working on arranging for dme equipment and home health. <Maribel Siddiqui - Last Filed: 08/26/17 10:56>
--- NOTE | 2017-08-25 09:34 | PRG ---
DATE OF SERVICE: 08/25/2017 This morning she is awake, alert, responsive. She is still coughing some blood tinged sputum. A #8 cuffed Shiley was removed. The sutures were removed and a #8 cuffless fenestrated Shiley was placed without any difficulty. PHYSICAL EXAMINATION: VITAL SIGNS: Blood pressure 125/60, sat 99% on 2 liters, temperature 97. CHEST: Chest reveals bilateral rhonchi. CARDIAC: Normal S1, S2. No gallop. IMPRESSION: 1. Morbid obesity, a trach and PEG. 2. Sleep apnea. 3. Chronic obstructive pulmonary disease. PLAN: She has now a #8 cuffless fenestrated trach, eventually placement, neb treatments, supportive care. I will follow.
[2017-08-25] MEDS: Famotidine 20 MG TAB PER TUBE SCH (09:38)
[2017-08-25] MEDS: Acetaminophen 650 MG/20.3 ML UDCUP PER TUBE PRN (21:31)
[2017-08-25] MEDS: Enoxaparin Sodium 40 MG/0.4 ML SYRINGE SC SCH (21:45)
[2017-08-26] MEDS: Levothyroxine Sodium 125 MCG TAB PO SCH (05:32)
[2017-08-26 05:36] LABS: Platelet Count 141 thou/uL (130-400)
[2017-08-26] MEDS: Famotidine 20 MG TAB PER TUBE SCH (09:22)
[2017-08-26] MEDS: Docusate Sodium 100 MG/10 ML UDCUP PO SCH ×2 (09:23→20:51)
[2017-08-26] MEDS: Polyethylene Glycol 3350 17 GM Packet PO SCH (09:24)
--- NOTE | 2017-08-26 09:40 | PRG ---
DATE OF SERVICE: 08/26/2017 She is awake, alert, responsive. This morning she is weak. PHYSICAL EXAMINATION: VITAL SIGNS: Sats are 90% on 28%, respiratory rate 20 on 28, blood pressure 190/69. CHEST: Chest revealed decreased breath sounds, no wheezing. CARDIAC: Normal S1, S2. IMPRESSION: 1. Morbid obesity. 2. Sleep apnea. 3. Trach and PEG #[address] When she is ambulating and doing better, we can downsize the trach. In the meantime, I encouraged her to lose weight. Aggressive PT.
--- NOTE | 2017-08-26 10:48 | PDOC.FM ---
- Subjective Subjective: Patient stable overnight. Denies CP, N/V, SOB. CM has worked to get HH for patient and has found a company that will likely accept her. We have sent [employer] 19 for supplies and are awaiting word back from [facility]. - Objective MAR Reviewed: Yes Vital Signs & Weight: Vital Signs (12 hours) Temp Pulse Resp BP Pulse Ox 08/26/17 08:00 98.5 F 63 20 109/69 94 L 08/26/17 07:08 96 08/26/17 07:07 65 18 96 08/26/17 06:27 98.0 F 63 20 107/56 L 92 L 08/26/17 00:00 98.6 F 73 20 91/57 L 95 Weight Admit Weight 154.63 kg Weight 145.4 kg Most Recent Monitor Data Heart Rate from ECG 64 NIBP 119/48 NIBP BP-Mean 85 Respiration from ECG 21 SpO2 95 I&O: 08/25/17 08/26/17 08/27/17 06:59 06:59 06:59 Intake Total 821977 297 Balance 820 1977 Result Diagrams: 08/26/17 04:47 08/18/17 03:48 <Amrit Deluna - Last Filed: 08/26/17 10:46> - Objective Vital Signs & Weight: Vital Signs (12 hours) Temp Pulse Resp BP Pulse Ox 08/26/17 08:00 98.5 F 63 20 109/69 94 L 08/26/17 07:08 96 08/26/17 07:07 65 18 96 08/26/17 06:27 98.0 F 63 20 107/56 L 92 L 08/26/17 00:00 98.6 F 73 20 91/57 L 95 Weight Admit Weight 154.63 kg Weight 145.4 kg Most Recent Monitor Data Heart Rate from ECG 64 NIBP 119/48 NIBP BP-Mean 85 Respiration from ECG 21 SpO2 95 I&O: 08/25/17 08/26/17 08/27/17 06:59 06:59 06:59 Intake Total 820 1977 297 Balance 820 1977 297 Result Diagrams: 08/26/17 04:47 08/18/17 03:48 <Maribel Siddiqui - Last Filed: 08/26/17 11:00> Phys Exam - Physical Examination Constitutional: NAD cuffless trach in place Respiratory: no wheezing, clear to auscultation bilateral Cardiovascular: RRR, no significant murmur Gastrointestinal: soft, non-tender Musculoskeletal: pulses present Neurological: normal sensation, moves all 4 limbs Psychiatric: normal affect <MikieAmrit - Last Filed: 08/26/17 10:46> Dx/Plan (1) Acute on chronic respiratory failure with hypoxia and hypercapnia Code(s): J96.21 - ACUTE AND CHRONIC RESPIRATORY FAILURE WITH HYPOXIA; J96.22 - ACUTE AND CHRONIC RESPIRATORY FAILURE WITH HYPERCAPNIA Status: Chronic Plan: Stable at this time. Plan is to d/c home on HH with family and friends to care for patient when HH not there. CM has coordinated with and he is in the process of finding people to assist so patient has 24 hr care that does not include high school age son. Going to home because she has been denied everwhere in town besides [facility] and the family refuses to take patient back to [facility], plus they have outstanding balance. Also they refuse to go outside [place] area. Appreciate CM assistance. (2) Constipation Code(s): K59.00 - CONSTIPATION, UNSPECIFIED Status: Acute Plan: continue with miralax (3) KATE (obstructive sleep apnea) Code(s): G47.33 - OBSTRUCTIVE SLEEP APNEA (ADULT) (PEDIATRIC) Status: Acute (4) Diastolic CHF Code(s): I50.30 - UNSPECIFIED DIASTOLIC (CONGESTIVE) HEART FAILURE Status: Chronic QualifierTitle: Congestive heart failure chronicity: acute on chronic Qualified Code(s): I50.33 - Acute on chronic diastolic (congestive) heart failure (5) Obesity, morbid Code(s): E66.01 - MORBID (SEVERE) OBESITY DUE TO EXCESS CALORIES Status: Chronic (6) Type 2 diabetes mellitus Status: Chronic QualifierTitle: Diabetes mellitus complication status: with skin complications Diabetes mellitus complication detail: with other skin ulcer Diabetes mellitus intermodal dispatcher insulin use: unspecified chcf insulin use status Qualified Code(s): E11.622 - Type 2 diabetes mellitus with other skin ulcer; L98.499 - Non-pressure chronic ulcer of skin of other sites with unspecified severity; L98.499 - Non-pressure chronic ulcer of skin of other sites with unspecified severity; L98.499 - Non-pressure chronic ulcer of skin of other sites with unspecified severity; L98.499 - Non-pressure chronic ulcer of skin of other sites with unspecified severity <Amrit Deluna - Last Filed: 08/26/17 10:46> Attending Addendum - Attending Addendum I personally evaluated the patient and discussed the management with Dr. Deluna. I agree with the History, Examination, Assessment and Plan documented above with any addition or exceptions noted below. Counseled pt on need for trach and need for weight loss. Case management is helping to arrange discharge. She will be going home soon. <Maribel Siddiqui - Last Filed: 08/26/17 11:00>
[2017-08-26 13:48] VITALS: BMI 60.5
[2017-08-26] MEDS: Enoxaparin Sodium 40 MG/0.4 ML SYRINGE SC SCH (20:51)
[2017-08-26] MEDS: Acetaminophen 650 MG/20.3 ML UDCUP PER TUBE PRN (20:52)
[2017-08-27] MEDS: Levothyroxine Sodium 125 MCG TAB PO SCH (06:02)
[2017-08-27] MEDS: Famotidine 20 MG TAB PER TUBE SCH (08:21)
[2017-08-27] MEDS: Docusate Sodium 100 MG/10 ML UDCUP PO SCH ×2 (08:21→19:56)
[2017-08-27] MEDS: Polyethylene Glycol 3350 17 GM Packet PO SCH (08:22)
--- NOTE | 2017-08-27 08:56 | PDOC.FM ---
- Subjective Subjective: Patient stable overnight. No complaints of CP, N/V. is still working to find a provider of needed medical supplies. Currently requests are out for Physician' s medical. - Objective MAR Reviewed: Yes Vital Signs & Weight: Vital Signs (12 hours) Temp Pulse Resp BP Pulse Ox 08/27/17 06:10 96 08/27/17 04:00 97.7 F 69 20 117/70 99 08/27/17 00:00 98.2 F 59 L 22 H 118/67 94 L Weight Admit Weight 154.63 kg Weight 145.4 kg Most Recent Monitor Data Heart Rate from ECG 64 NIBP 119/48 NIBP BP-Mean 85 Respiration from ECG 21 SpO2 95 I&O: 08/26/17 08/27/17 08/28/17 06:59 06:59 06:59 Intake Total 1977 1305 Balance 1977 1305 Result Diagrams: 08/26/17 04:47 08/18/17 03:48 <Amrit Deluna - Last Filed: 08/27/17 08:54> - Objective Vital Signs & Weight: Vital Signs (12 hours) Temp Pulse Resp BP Pulse Ox 08/27/17 06:10 96 08/27/17 04:00 97.7 F 69 20 117/70 99 08/27/17 00:00 98.2 F 59 L 22 H 118/67 94 L Weight Admit Weight 154.63 kg Weight 145.4 kg Most Recent Monitor Data Heart Rate from ECG 64 NIBP 119/48 NIBP BP-Mean 85 Respiration from ECG 21 SpO2 95 I&O: 08/26/17 08/27/17 08/28/17 06:59 06:59 06:59 Intake Total 1977 Result Diagrams: 08/26/17 04:47 08/18/17 03:48 <Maribel Siddiqui - Last Filed: 08/27/17 09:58> Phys Exam - Physical Examination Constitutional: NAD trach in place mild diffuse wheezing Cardiovascular: RRR, no significant murmur Gastrointestinal: soft, non-tender Musculoskeletal: no edema, pulses present Neurological: moves all 4 limbs Psychiatric: normal affect <Amrit Deluna - Last Filed: 08/27/17 08:54> Dx/Plan (1) Acute on chronic respiratory failure with hypoxia and hypercapnia Code(s): J96.21 - ACUTE AND CHRONIC RESPIRATORY FAILURE WITH HYPOXIA; J96.22 - ACUTE AND CHRONIC RESPIRATORY FAILURE WITH HYPERCAPNIA Status: Chronic Plan: Stable at this time. Plan is to d/c home on HH with family and friends to care for patient when HH not there. CM has coordinated with and he is in the process of finding people to assist so patient has 24 hr care that does not include high school age son. Going to home because she has been denied everwhere in town besides [facility] and the family refuses to take patient back to [facility], plus they have outstanding balance. Also they refuse to go outside B/ area. Appreciate CM assistance. (2) Constipation Code(s): K59.00 - CONSTIPATION, UNSPECIFIED Status: Acute Plan: continue with miralax (3) KATE (obstructive sleep apnea) Code(s): G47.33 - OBSTRUCTIVE SLEEP APNEA (ADULT) (PEDIATRIC) Status: Acute (4) Diastolic CHF Code(s): I50.30 - UNSPECIFIED DIASTOLIC (CONGESTIVE) HEART FAILURE Status: Chronic QualifierTitle: Congestive heart failure chronicity: acute on chronic Qualified Code(s): I50.33 - Acute on chronic diastolic (congestive) heart failure (5) Obesity, morbid Code(s): E66.01 - MORBID (SEVERE) OBESITY DUE TO EXCESS CALORIES Status: Chronic (6) Type 2 diabetes mellitus Status: Chronic QualifierTitle: Diabetes mellitus complication status: with skin complications Diabetes mellitus complication detail: with other skin ulcer Diabetes mellitus fpc insulin use: unspecified intermediate accountant insulin use status Qualified Code(s): E11.622 - Type 2 diabetes mellitus with other skin ulcer; L98.499 - Non-pressure chronic ulcer of skin of other sites with unspecified severity; L98.499 - Non-pressure chronic ulcer of skin of other sites with unspecified severity; L98.499 - Non-pressure chronic ulcer of skin of other sites with unspecified severity; L98.499 - Non-pressure chronic ulcer of skin of other sites with unspecified severity <Amrit Deluna - Last Filed: 08/27/17 08:54> Attending Addendum - Attending Addendum I personally evaluated the patient and discussed the management with Dr. Deluna. I agree with the History, Examination, Assessment and Plan documented above with any addition or exceptions noted below. Still trying to arrange for DME equipment and home health. Patient will be able to discharge when everything is in place. <Maribel Siddiqui - Last Filed: 08/27/17 09:58>
--- NOTE | 2017-08-27 15:45 | PRG ---
DATE OF SERVICE: 08/27/2017 SUBJECTIVE: Trach, PEG, obesity. The patient has sleep apnea, doing well. OBJECTIVE: VITAL SIGNS: Sats 96% on 2 liters, blood pressure is 117/70. CHEST: Chest reveals decreased breath sounds, no wheezing. CARDIAC: Normal S1, S2. IMPRESSION: 1. Chronic obstructive pulmonary disease. 2. Trach, PEG. PLAN: Disposition, home next week. Continue neb treatments, supportive care. Weight loss.
[2017-08-27] MEDS: Enoxaparin Sodium 40 MG/0.4 ML SYRINGE SC SCH (20:01)
[2017-08-27] MEDS: Acetaminophen 650 MG/20.3 ML UDCUP PER TUBE PRN (21:28)
[2017-08-28] MEDS: Levothyroxine Sodium 125 MCG TAB PO SCH (06:43)
[2017-08-28] MEDS: Polyethylene Glycol 3350 17 GM Packet PO SCH (09:28)
[2017-08-28] MEDS: Docusate Sodium 100 MG/10 ML UDCUP PO SCH ×2 (09:28→20:46)
[2017-08-28] MEDS: Famotidine 20 MG TAB PER TUBE SCH (09:50)
--- NOTE | 2017-08-28 11:47 | PRG ---
DATE OF SERVICE: 08/28/2017 SUBJECTIVE: The patient is congested. The nursing staff was having difficulty removing her inner ca nnula from the trach, which I was able to do. OBJECTIVE: VITAL SIGNS: Temperature is 98.0, pulse 60, respiration 16, O2 sat 97% and blood pressure 130/80. HEENT: Unremarkable. NECK: No JVD. CHEST: Clear. CARDIAC: S1 and S2 regular. ABDOMEN: Soft. EXTREMITIES: No edema. ASSESSMENT: 1. Status post trach and percutaneous endoscopic gastrostomy. 2. Chronic obstructive pulmonary disease. PLAN: Change inner cannula and suction the patient. I have reviewed the orders and do not forsee an y changes that need to be made at this time.
--- NOTE | 2017-08-28 12:57 | PDOC.FM ---
- Subjective Subjective: Patient stable overnight. Denies CP, N/V, SOB overnight. Yesterday efforts by case management were made to reach out to rehab to see if they would re- evaluate the patient. Pending at this time. - Objective MAR Reviewed: Yes Vital Signs & Weight: Vital Signs (12 hours) Temp Pulse Resp BP BP Pulse Ox 08/28/17 11:56 69 16 96 08/28/17 08:00 98 F 69 16 97 08/28/17 07:00 98 F 69 16 130/80 97 08/28/17 06:00 95 08/28/17 05:57 67 14 95 08/28/17 04:00 99.3 F 67 20 104/50 L 95 Weight Admit Weight 154.63 kg Weight 145.4 kg Most Recent Monitor Data Heart Rate from ECG 64 NIBP 119/48 NIBP BP-Mean 85 Respiration from ECG 21 SpO2 95 I&O: 08/27/17 08/28/17 08/29/17 06:59 06:59 06:59 Intake Total 1306 1457 297 Balance 1306 1457 297 Result Diagrams: 08/26/17 04:47 08/18/17 03:48 <Amrit Deluna - Last Filed: 08/28/17 12:55> - Objective Vital Signs & Weight: Vital Signs (12 hours) Temp Pulse Resp BP BP Pulse Ox 08/28/17 11:56 69 16 96 08/28/17 08:00 98 F 69 16 97 08/28/17 07:00 98 F 69 16 130/80 97 08/28/17 06:00 95 08/28/17 05:57 67 14 95 08/28/17 04:00 99.3 F 67 20 104/50 L 95 Weight Admit Weight 154.63 kg Weight 145.4 kg Most Recent Monitor Data Heart Rate from ECG 64 NIBP 119/48 NIBP BP-Mean 85 Respiration from ECG 21 SpO2 95 I&O: 08/27/17 08/28/17 08/29/17 06:59 06:59 06:59 Intake Total 1306 1457 297 Balance 1306 1457 297 Result Diagrams: 08/26/17 04:47 08/18/17 03:48 <Maribel Siddiqui - Last Filed: 08/28/17 14:26> Phys Exam - Physical Examination Constitutional: NAD trach in place midline Respiratory: no wheezing, clear to auscultation bilateral Cardiovascular: RRR Gastrointestinal: soft, non-tender, positive bowel sounds Musculoskeletal: pulses present Neurological: normal sensation, moves all 4 limbs Psychiatric: normal affect, A&O x 3 <MikieAmrit - Last Filed: 08/28/17 12:55> Dx/Plan (1) Acute on chronic respiratory failure with hypoxia and hypercapnia Code(s): J96.21 - ACUTE AND CHRONIC RESPIRATORY FAILURE WITH HYPOXIA; J96.22 - ACUTE AND CHRONIC RESPIRATORY FAILURE WITH HYPERCAPNIA Status: Chronic Plan: Stable at this time. CM working with family for placement at home with 24hr care vs inpt rehave to reevaluate. CM has coordinated with and he is in the process of finding people to assist so patient has 24 hr care that does not include high school age son. Going to home because she has been denied everwhere in town besides [facility] and the family refuses to take patient back to [facility], plus they have outstanding balance. Also they refuse to go outside / area. Appreciate CM assistance. (2) Constipation Code(s): K59.00 - CONSTIPATION, UNSPECIFIED Status: Acute Plan: continue with miralax (3) KATE (obstructive sleep apnea) Code(s): G47.33 - OBSTRUCTIVE SLEEP APNEA (ADULT) (PEDIATRIC) Status: Acute (4) Diastolic CHF Code(s): I50.30 - UNSPECIFIED DIASTOLIC (CONGESTIVE) HEART FAILURE Status: Chronic QualifierTitle: Congestive heart failure chronicity: acute on chronic Qualified Code(s): I50.33 - Acute on chronic diastolic (congestive) heart failure (5) Obesity, morbid Code(s): E66.01 - MORBID (SEVERE) OBESITY DUE TO EXCESS CALORIES Status: Chronic (6) Type 2 diabetes mellitus Status: Chronic QualifierTitle: Diabetes mellitus complication status: with skin complications Diabetes mellitus complication detail: with other skin ulcer Diabetes mellitus assisted insulin use: unspecified assisted insulin use status Qualified Code(s): E11.622 - Type 2 diabetes mellitus with other skin ulcer; L98.499 - Non-pressure chronic ulcer of skin of other sites with unspecified severity; L98.499 - Non-pressure chronic ulcer of skin of other sites with unspecified severity; L98.499 - Non-pressure chronic ulcer of skin of other sites with unspecified severity; L98.499 - Non-pressure chronic ulcer of skin of other sites with unspecified severity <Amrit Deluna - Last Filed: 08/28/17 12:55> Attending Addendum - Attending Addendum I personally evaluated the patient and discussed the management with Dr. Deluna. I agree with the History, Examination, Assessment and Plan documented above with any addition or exceptions noted below. The patient is resting comfortably. Patient's family is requesting re- evaluation for inpatient rehab. Working with case mgmt to plan discharge. <Maribel Siddiqui - Last Filed: 08/28/17 14:26>
[2017-08-28] MEDS: Enoxaparin Sodium 40 MG/0.4 ML SYRINGE SC SCH (22:19)
[2017-08-28] MEDS: Acetaminophen 650 MG/20.3 ML UDCUP PER TUBE PRN (22:19)
[2017-08-29] MEDS: Levothyroxine Sodium 125 MCG TAB PO SCH (06:42)
[2017-08-29] MEDS: Docusate Sodium 100 MG/10 ML UDCUP PO SCH ×2 (07:33→20:00)
[2017-08-29] MEDS: Polyethylene Glycol 3350 17 GM Packet PO SCH (07:34)
--- NOTE | 2017-08-29 07:53 | PDOC.FM ---
- Subjective Subjective: Patient stable overnight. No complaints or concerns. Being suctioned during exam. - Objective MAR Reviewed: Yes Vital Signs & Weight: Vital Signs (12 hours) Temp Pulse Resp Pulse Ox 08/29/17 06:07 71 20 95 08/29/17 06:00 95 08/29/17 00:41 71 22 H 95 08/28/17 20:00 98.2 F 72 24 H 97 Weight Admit Weight 154.63 kg Weight 145.4 kg Most Recent Monitor Data Heart Rate from ECG 64 NIBP 119/48 NIBP BP-Mean 85 Respiration from ECG 21 SpO2 95 I&O: 08/28/17 08/29/17 08/30/17 06:59 06:59 06:59 Intake Total 1457 1194 Balance 1457 1194 Result Diagrams: 08/26/17 04:47 08/18/17 03:48 <Amrit Deluna - Last Filed: 08/29/17 07:50> - Objective Vital Signs & Weight: Vital Signs (12 hours) Temp Pulse Resp BP Pulse Ox 08/29/17 11:33 63 18 96 08/29/17 08:00 98.5 F 63 18 97 08/29/17 07:39 98.5 F 63 16 115/67 100 08/29/17 06:07 71 20 95 08/29/17 06:00 95 Weight Admit Weight 154.63 kg Weight 145.4 kg Most Recent Monitor Data Heart Rate from ECG 64 NIBP 119/48 NIBP BP-Mean 85 Respiration from ECG 21 SpO2 95 I&O: 08/28/17 08/29/17 08/30/17 06:59 06:59 06:59 Intake Total 1457 1194 297 Balance 1457 1194 297 Result Diagrams: 08/26/17 04:47 08/18/17 03:48 <Maribel Siddiqui - Last Filed: 08/29/17 14:23> Phys Exam - Physical Examination Constitutional: NAD HEENT: PERRLA, moist MMs trach in place mild diffuse wheezing Cardiovascular: RRR, no significant murmur Gastrointestinal: soft, non-tender Musculoskeletal: no edema, pulses present Neurological: non-focal, moves all 4 limbs Psychiatric: normal affect <Amrit Deluna - Last Filed: 08/29/17 07:50> Dx/Plan (1) Acute on chronic respiratory failure with hypoxia and hypercapnia Code(s): J96.21 - ACUTE AND CHRONIC RESPIRATORY FAILURE WITH HYPOXIA; J96.22 - ACUTE AND CHRONIC RESPIRATORY FAILURE WITH HYPERCAPNIA Status: Chronic Plan: Stable at this time. Dr. Connor changed inner cannula yesterday. No updates yesterday. CM working with family for placement at home with 24hr care vs inpt rehave to reevaluate. CM has coordinated with and he is in the process of finding people to assist so patient has 24 hr care that does not include high school age son. Going to home because she has been denied everwhere in town besides [facility] and the family refuses to take patient back to [facility], plus they have outstanding balance. Also they refuse to go outside B/ area. Appreciate CM assistance. (2) Constipation Code(s): K59.00 - CONSTIPATION, UNSPECIFIED Status: Acute Plan: continue with miralax (3) KATE (obstructive sleep apnea) Code(s): G47.33 - OBSTRUCTIVE SLEEP APNEA (ADULT) (PEDIATRIC) Status: Acute (4) Diastolic CHF Code(s): I50.30 - UNSPECIFIED DIASTOLIC (CONGESTIVE) HEART FAILURE Status: Chronic QualifierTitle: Congestive heart failure chronicity: acute on chronic Qualified Code(s): I50.33 - Acute on chronic diastolic (congestive) heart failure (5) Obesity, morbid Code(s): E66.01 - MORBID (SEVERE) OBESITY DUE TO EXCESS CALORIES Status: Chronic (6) Type 2 diabetes mellitus Status: Chronic QualifierTitle: Diabetes mellitus complication status: with skin complications Diabetes mellitus complication detail: with other skin ulcer Diabetes mellitus terminal operations manager insulin use: unspecified senior care insulin use status Qualified Code(s): E11.622 - Type 2 diabetes mellitus with other skin ulcer; L98.499 - Non-pressure chronic ulcer of skin of other sites with unspecified severity; L98.499 - Non-pressure chronic ulcer of skin of other sites with unspecified severity; L98.499 - Non-pressure chronic ulcer of skin of other sites with unspecified severity; L98.499 - Non-pressure chronic ulcer of skin of other sites with unspecified severity <Amrit Deluna - Last Filed: 08/29/17 07:50> Attending Addendum - Attending Addendum I personally evaluated the patient and discussed the management with Dr. Deluna. I agree with the History, Examination, Assessment and Plan documented above with any addition or exceptions noted below. The patient remains stable. Waiting on repeat rehab screen per family request. Waiting on equipment to be arranged and case mgmt is helping with d/c planning. <Maribel Siddiqui - Last Filed: 08/29/17 14:23>
[2017-08-29] MEDS: Famotidine 20 MG TAB PER TUBE SCH (08:58)
--- NOTE | 2017-08-29 16:19 | PRG ---
DATE OF SERVICE: 08/21/2017 SUBJECTIVE: The patient seems to be doing okay. She speaks only [place], it was difficult for me to communicate with her. OBJECTIVE: VITAL SIGNS: Temperature 98.5, pulse 63, respirations 18, O2 sat 96%, blood pressure 115/67. HEENT: Unremarkable. NECK: Trach is in good position. LUNGS: Clear, but distant breath sounds. CARDIOVASCULAR: S1, S2 regular. ABDOMEN: Soft. EXTREMITIES: No edema. ASSESSMENT: 1. Status post trach and PEG. 2. Chronic obstructive pulmonary disease. PLAN: 1. Continue present care. 2. Placement.
[2017-08-29] MEDS: Enoxaparin Sodium 40 MG/0.4 ML SYRINGE SC SCH (20:00)
--- NOTE | 2017-08-29 22:27 | PDOC.FM ---
- Subjective Subjective: No significant overnight events. Patient endorses some pain around trach site. She states that she wants the trach removed. It was explained that this was helping her to breath. Patient denies any shortness of breath or chest pain. She is doing fairly well this AM. We are still awaiting placement at this time. - Objective MAR Reviewed: Yes Vital Signs & Weight: Vital Signs (12 hours) Temp Pulse Resp BP Pulse Ox 08/29/17 20:00 98.3 F 73 20 119/65 93 L 08/29/17 19:11 16 100 08/29/17 11:33 63 18 96 Weight Admit Weight 154.63 kg Weight 145.4 kg Most Recent Monitor Data Heart Rate from ECG 64 NIBP 119/48 NIBP BP-Mean 85 Respiration from ECG 21 SpO2 95 I&O: 08/28/17 08/29/17 08/30/17 06:59 06:59 06:59 Intake Total 1457 1194 771 Balance 1457 1194 771 Result Diagrams: 08/26/17 04:47 08/18/17 03:48 EKG Reviewed by me: Yes Radiology Reviewed by me: Yes <Amanda Castro - Last Filed: 08/30/17 09:11> - Objective Vital Signs & Weight: Vital Signs (12 hours) Temp Pulse Resp BP Pulse Ox 08/30/17 08:00 98.0 F 64 16 117/63 94 L 08/30/17 06:56 69 14 93 L Weight Admit Weight 154.63 kg Weight 145.4 kg Most Recent Monitor Data Heart Rate from ECG 64 NIBP 119/48 NIBP BP-Mean 85 Respiration from ECG 21 SpO2 95 I&O: 08/29/17 08/30/17 08/31/17 06:59 06:59 06:59 Intake Total 1194 2151 Balance 1194 2151 Result Diagrams: 08/26/17 04:47 08/18/17 03:48 <Darius Gill - Last Filed: 08/30/17 12:07> Phys Exam - Physical Examination Constitutional: NAD HEENT: moist MMs, sclera anicteric Neck: supple Diffuse wheezing throughout Cardiovascular: RRR Gastrointestinal: soft, non-tender trace edema Neurological: non-focal Psychiatric: A&O x 3 Skin: cap refill <2 seconds Deviation from normal: Bilateral LE chronic skin changes 2/2 stasis <Amanda Castro - Last Filed: 08/30/17 09:11> Dx/Plan (1) Acute on chronic respiratory failure with hypoxia and hypercapnia Code(s): J96.21 - ACUTE AND CHRONIC RESPIRATORY FAILURE WITH HYPOXIA; J96.22 - ACUTE AND CHRONIC RESPIRATORY FAILURE WITH HYPERCAPNIA Status: Chronic (2) Constipation Code(s): K59.00 - CONSTIPATION, UNSPECIFIED Status: Acute (3) KATE (obstructive sleep apnea) Code(s): G47.33 - OBSTRUCTIVE SLEEP APNEA (ADULT) (PEDIATRIC) Status: Chronic (4) Diastolic CHF Code(s): I50.30 - UNSPECIFIED DIASTOLIC (CONGESTIVE) HEART FAILURE Status: Chronic QualifierTitle: Congestive heart failure chronicity: acute on chronic Qualified Code(s): I50.33 - Acute on chronic diastolic (congestive) heart failure (5) Obesity, morbid Code(s): E66.01 - MORBID (SEVERE) OBESITY DUE TO EXCESS CALORIES Status: Chronic (6) Type 2 diabetes mellitus Status: Chronic QualifierTitle: Diabetes mellitus complication status: with skin complications Diabetes mellitus complication detail: with other skin ulcer Diabetes mellitus retirement insulin use: unspecified retirement insulin use status Qualified Code(s): E11.622 - Type 2 diabetes mellitus with other skin ulcer; L98.499 - Non-pressure chronic ulcer of skin of other sites with unspecified severity; L98.499 - Non-pressure chronic ulcer of skin of other sites with unspecified severity; L98.499 - Non-pressure chronic ulcer of skin of other sites with unspecified severity; L98.499 - Non-pressure chronic ulcer of skin of other sites with unspecified severity - Plan Plan: 1. Acute on chronic respiratory failure with hypoxia and hypercapnia - Stable - Appreciate pulmonology recs - CM working with family for placement at home with and [facility] care vs. rescreening for inpatient rehab 2. Constipation - Continue miralax - PRN medications 3. KATE - Likely cause of respiratory failure - Trach in place 4. Diastolic CHF - Continue current medications 5. Obesity, morbid - Likely contributing to KATE and need for trach - Will require assistance with transfers 6. Type 2 DM - Continue insulin - Accuchecks - CC diet <Amanda Castro - Last Filed: 08/30/17 09:11> Attending Addendum - Attending Addendum I personally evaluated the patient and discussed the management with Dr. Castro. I agree with the History, Examination, Assessment and Plan documented above with any addition or exceptions noted below. No major active issues at this time. Awaiting decision on placement with possible inpt rehab versus home. Will need family teaching to ensure they can care for her at home. Vitals stable and no changes to medications today. <Darius Gill - Last Filed: 08/30/17 12:07>
[2017-08-29] MEDS: Acetaminophen 650 MG/20.3 ML UDCUP PER TUBE PRN (22:32)
[2017-08-30] MEDS: Levothyroxine Sodium 125 MCG TAB PO SCH (05:13)
[2017-08-30] MEDS: Famotidine 20 MG TAB PER TUBE SCH (08:19)
[2017-08-30] MEDS: Docusate Sodium 100 MG/10 ML UDCUP PO SCH ×2 (08:19→21:07)
[2017-08-30] MEDS: Polyethylene Glycol 3350 17 GM Packet PO SCH (08:20)
[2017-08-30] MEDS ORDERED: Scopolamine 1.5 mg/72 hour Patch TD SCH (09:00)
--- NOTE | 2017-08-30 09:03 | PRG ---
DATE OF SERVICE: 08/30/2017 This morning she is awake, alert, responsive. She is having a lot of copious secretions. PHYSICAL EXAMINATION: VITAL SIGNS: Sats are 96% on 2 liters, temperature 98, blood pressure 110/63. CHEST: Chest revealed decreased breath sounds, no wheezing. CARDIAC: Normal S1-S2. No gallops. ABDOMEN: Soft. No masses. IMPRESSION: 1. Morbid obesity. 2. Trach and PEG. 3. Retained secretions. 4. Chronic obstructive pulmonary disease. 5. Obstructive sleep apnea. PLAN: I am going to add some scopolamine patch, otherwise continue neb treatments as prescribed. DISPOSITION: Home. Prognosis is guarded.
[2017-08-30] MEDS: Enoxaparin Sodium 40 MG/0.4 ML SYRINGE SC SCH (21:06)
[2017-08-31] MEDS: Levothyroxine Sodium 125 MCG TAB PO SCH (06:32)
[2017-08-31] MEDS: Polyethylene Glycol 3350 17 GM Packet PO SCH (08:28)
[2017-08-31] MEDS: Famotidine 20 MG TAB PER TUBE SCH (08:28)
[2017-08-31] MEDS: Docusate Sodium 100 MG/10 ML UDCUP PO SCH ×2 (08:30→19:12)
--- NOTE | 2017-08-31 09:02 | PDOC.FM ---
- Subjective Subjective: No significant overnight events. Patient doing well this AM. She states that she has been able to get up and walk to [place] with some assistance. She denies any pain this AM. She states that her son and came yesterday to get trained on trach management. Plans to possibly discharge home today. - Objective MAR Reviewed: Yes Vital Signs & Weight: Vital Signs (12 hours) Pulse Resp Pulse Ox 08/31/17 06:57 79 16 94 L 08/31/17 01:44 70 18 96 Weight Admit Weight 154.63 kg Weight 145.4 kg Most Recent Monitor Data Heart Rate from ECG 64 NIBP 119/48 NIBP BP-Mean 85 Respiration from ECG 21 SpO2 95 I&O: 08/30/17 08/31/17 09/01/17 06:59 06:59 06:59 Intake Total 2151 720 Balance 2151 720 Result Diagrams: 08/26/17 04:47 08/18/17 03:48 EKG Reviewed by me: Yes Radiology Reviewed by me: Yes <Amanda Castro - Last Filed: 08/31/17 09:00> - Objective Vital Signs & Weight: Vital Signs (12 hours) Temp Pulse Resp BP Pulse Ox 08/31/17 08:00 98.1 F 74 20 111/62 93 L 08/31/17 06:57 79 16 94 L 08/31/17 01:44 70 18 96 Weight Admit Weight 154.63 kg Weight 145.165 kg Most Recent Monitor Data Heart Rate from ECG 64 NIBP 119/48 NIBP BP-Mean 85 Respiration from ECG 21 SpO2 95 I&O: 08/30/17 08/31/17 09/01/17 06:59 06:59 06:59 Intake Total 2154 720 297 Balance 2151 720 297 Result Diagrams: 08/26/17 04:47 08/18/17 03:48 <Darius Gill - Last Filed: 08/31/17 11:15> Phys Exam - Physical Examination Constitutional: NAD HEENT: moist MMs Neck: supple mild rhonchi throughout Cardiovascular: RRR, no significant murmur Gastrointestinal: soft, non-tender, positive bowel sounds trace edema Neurological: non-focal, moves all 4 limbs Psychiatric: normal affect Skin: cap refill <2 seconds Deviation from normal: chronic changes to bilateral LE's from venous stasis <Deisi Castroyn - Last Filed: 08/31/17 09:00> Dx/Plan (1) Acute on chronic respiratory failure with hypoxia and hypercapnia Code(s): J96.21 - ACUTE AND CHRONIC RESPIRATORY FAILURE WITH HYPOXIA; J96.22 - ACUTE AND CHRONIC RESPIRATORY FAILURE WITH HYPERCAPNIA Status: Chronic (2) Constipation Code(s): K59.00 - CONSTIPATION, UNSPECIFIED Status: Acute (3) KATE (obstructive sleep apnea) Code(s): G47.33 - OBSTRUCTIVE SLEEP APNEA (ADULT) (PEDIATRIC) Status: Chronic (4) Diastolic CHF Code(s): I50.30 - UNSPECIFIED DIASTOLIC (CONGESTIVE) HEART FAILURE Status: Chronic QualifierTitle: Congestive heart failure chronicity: acute on chronic Qualified Code(s): I50.33 - Acute on chronic diastolic (congestive) heart failure (5) Obesity, morbid Code(s): E66.01 - MORBID (SEVERE) OBESITY DUE TO EXCESS CALORIES Status: Chronic (6) Type 2 diabetes mellitus Status: Chronic QualifierTitle: Diabetes mellitus complication status: with skin complications Diabetes mellitus complication detail: with other skin ulcer Diabetes mellitus terminal operator insulin use: unspecified assisted insulin use status Qualified Code(s): E11.622 - Type 2 diabetes mellitus with other skin ulcer; L98.499 - Non-pressure chronic ulcer of skin of other sites with unspecified severity; L98.499 - Non-pressure chronic ulcer of skin of other sites with unspecified severity; L98.499 - Non-pressure chronic ulcer of skin of other sites with unspecified severity; L98.499 - Non-pressure chronic ulcer of skin of other sites with unspecified severity - Plan Plan: 1. Acute on chronic respiratory failure with hypoxia and hypercapnia - Stable - Appreciate pulmonology recs - CM working with family for placement at home with and [facility] care vs. rescreening for inpatient rehab - Will touch base with CM regarding family training yesterday - If everything is in place for d/c home, then anticipate d/c home today 2. Constipation - Continue miralax - PRN medications 3. KATE - Likely cause of respiratory failure - Trach in place 4. Diastolic CHF - Continue current medications 5. Obesity, morbid - Likely contributing to KATE and need for trach - Will require assistance with transfers 6. Type 2 DM - Continue insulin - Accuchecks - CC diet Dispo: Guarded. Denied from multiple NH's and inpatient rehab. Likely will be d/ c'd home with HH. <Amanda Castro - Last Filed: 08/31/17 09:00> Attending Addendum - Attending Addendum I personally evaluated the patient and discussed the management with Dr. Castro. I agree with the History, Examination, Assessment and Plan documented above with any addition or exceptions noted below. Patient doing well. No active issues. Family has received teaching on equipment and anticipate discharge to home in next 1-2 days since no approval for inpt rehab. <Darius Gill - Last Filed: 08/31/17 11:15>
--- NOTE | 2017-08-31 11:05 | PRG ---
DATE OF SERVICE: 08/31/2017 SUBJECTIVE: She is better. No shortness of breath. PHYSICAL EXAMINATION: VITAL SIGNS: Sats 94% on 5 liters, respirations 20, blood pressure 113/56. CHEST: Decreased rales, no wheezing. CARDIAC: Normal S1 and S2. IMPRESSION: 1. Chronic obstructive pulmonary disease with obstructive sleep apnea, tracheostomy. 2. Percutaneous endoscopic gastrostomy. 3. Morbid obesity. DISPOSITION: Home, PT and supportive care.
[2017-08-31] MEDS: Enoxaparin Sodium 40 MG/0.4 ML SYRINGE SC SCH (20:05)
[2017-09-01] MEDS: Levothyroxine Sodium 125 MCG TAB PO SCH (05:21)
[2017-09-01 08:15] VITALS: BP 100/58; TEMP 97.7
[2017-09-01] MEDS: Polyethylene Glycol 3350 17 GM Packet PO SCH (08:54)
[2017-09-01] MEDS: Famotidine 20 MG TAB PER TUBE SCH (08:54)
[2017-09-01] MEDS: Docusate Sodium 100 MG/10 ML UDCUP PO SCH (08:55)
--- NOTE | 2017-09-01 09:31 | PDOC.FM ---
- Subjective Subjective: Patient doing well this AM. No significant overnight events. Patient ready to go home and be with family. - Objective MAR Reviewed: Yes Vital Signs & Weight: Vital Signs (12 hours) Temp Pulse Resp BP Pulse Ox 09/01/17 08:14 97.7 F 72 16 100/58 L 95 09/01/17 06:57 94 L 09/01/17 06:55 75 14 95 Weight Admit Weight 154.63 kg Weight 145.165 kg Most Recent Monitor Data Heart Rate from ECG 64 NIBP 119/48 NIBP BP-Mean 85 Respiration from ECG 21 SpO2 95 I&O: 08/31/17 09/01/17 09/02/17 06:59 06:59 06:59 Intake Total 720 1828 Balance 720 5395 Result Diagrams: 08/26/17 04:47 08/18/17 03:48 EKG Reviewed by me: Yes Radiology Reviewed by me: Yes <Amanda Castro - Last Filed: 09/01/17 09:29> - Objective Vital Signs & Weight: Vital Signs (12 hours) Temp Pulse Resp BP Pulse Ox 09/01/17 11:52 80 16 96 09/01/17 08:14 97.7 F 72 16 100/58 L 95 09/01/17 08:00 97.7 F 72 16 95 09/01/17 06:57 94 L 09/01/17 06:55 75 14 95 Weight Admit Weight 154.63 kg Weight 145.165 kg Most Recent Monitor Data Heart Rate from ECG 64 NIBP 119/48 NIBP BP-Mean 85 Respiration from ECG 21 SpO2 95 I&O: 08/31/17 09/01/17 09/02/17 06:59 06:59 06:59 Intake Total 720 1828 440 Balance 720 1828 440 Result Diagrams: 08/26/17 04:47 08/18/17 03:48 <Darius Gill - Last Filed: 09/01/17 12:25> Phys Exam - Physical Examination Constitutional: NAD HEENT: moist MMs Neck: supple Respiratory: clear to auscultation bilateral Cardiovascular: RRR Gastrointestinal: soft, positive bowel sounds trace edema Neurological: non-focal, moves all 4 limbs Psychiatric: A&O x 3 Skin: cap refill <2 seconds <Amanda Castro - Last Filed: 09/01/17 09:29> Dx/Plan (1) Acute on chronic respiratory failure with hypoxia and hypercapnia Code(s): J96.21 - ACUTE AND CHRONIC RESPIRATORY FAILURE WITH HYPOXIA; J96.22 - ACUTE AND CHRONIC RESPIRATORY FAILURE WITH HYPERCAPNIA Status: Chronic (2) Constipation Code(s): K59.00 - CONSTIPATION, UNSPECIFIED Status: Acute (3) KATE (obstructive sleep apnea) Code(s): G47.33 - OBSTRUCTIVE SLEEP APNEA (ADULT) (PEDIATRIC) Status: Chronic (4) Diastolic CHF Code(s): I50.30 - UNSPECIFIED DIASTOLIC (CONGESTIVE) HEART FAILURE Status: Chronic QualifierTitle: Congestive heart failure chronicity: acute on chronic Qualified Code(s): I50.33 - Acute on chronic diastolic (congestive) heart failure (5) Obesity, morbid Code(s): E66.01 - MORBID (SEVERE) OBESITY DUE TO EXCESS CALORIES Status: Chronic (6) Type 2 diabetes mellitus Status: Chronic QualifierTitle: Diabetes mellitus complication status: with skin complications Diabetes mellitus complication detail: with other skin ulcer Diabetes mellitus nursing home insulin use: unspecified medical terminologist insulin use status Qualified Code(s): E11.622 - Type 2 diabetes mellitus with other skin ulcer; L98.499 - Non-pressure chronic ulcer of skin of other sites with unspecified severity; L98.499 - Non-pressure chronic ulcer of skin of other sites with unspecified severity; L98.499 - Non-pressure chronic ulcer of skin of other sites with unspecified severity; L98.499 - Non-pressure chronic ulcer of skin of other sites with unspecified severity - Plan Plan: 1. Acute on chronic respiratory failure with hypoxia and hypercapnia - Stable - Appreciate pulmonology recs - Patient to go home with HH with PT today - Family has been trained on trach and PEG tube care 2. Constipation - Continue miralax - PRN medications 3. KATE - Likely cause of respiratory failure - Trach in place 4. Diastolic CHF - Continue current medications 5. Obesity, morbid - Likely contributing to KATE and need for trach - Will require assistance with transfers 6. Type 2 DM - Continue insulin - Accuchecks - CC diet Dispo: Guarded. Home with HH w/ PT today. <Amanda Castro - Last Filed: 09/01/17 09:29> Attending Addendum - Attending Addendum I personally evaluated the patient and discussed the management with Dr. Castro. I agree with the History, Examination, Assessment and Plan documented above with any addition or exceptions noted below. Patient is stable for discharge home. Her family has received teaching on how to take care of her trach and PEG, and supplies have been delivered. She has been denied for inpt rehab. <Darius Gill - Last Filed: 09/01/17 12:25>
--- NOTE | 2017-09-01 10:03 | PRG ---
DATE OF SERVICE: 09/01/2017 This morning she is awake, alert, responsive. PHYSICAL EXAMINATION: VITAL SIGNS: Sats 95 on 2 liters, pulse 72, temperature 97, blood pressure 100/58. CHEST: No wheezing. CARDIAC: Normal S1, S2. IMPRESSION: 1. Chronic obstructive pulmonary disease. 2. Obstructive sleep apnea. 3. Status post trach. Placement, encouraged to lose weight.
--- NOTE | 2017-09-02 14:03 | DIS-2 ---
ADMISSION DATE: 08/01/2017 DISCHARGE DATE: 09/01/2017 RESIDENT: Dr. Amanda Castro. ADMITTING ATTENDING: Dr. Cholo Karimi. DISCHARGE ATTENDING: Dr. Darius Gill. CONSULTATIONS: 1. Dr. Chago Peterson, Cardiovascular Surgery. 2. Pulmonary, Dr. Connor. 3. GI, Dr. Adrián Desai. PROCEDURES: 1. Chest x-ray shows left upper extremity PICC line has been removed in the interim. Heart size is stable. There is some pulmonary vascular congestion, but no lobar consolidation, pneumothorax, or large effusions. 2. Chest x-ray #2, no changes from above exam. 3. Nuclear stress test shows persistent small region of fixed defect in the anteroseptal aspect of apex with associated diminished wall thickening, which may correlate 2 area of scar alternatively physiological apical thinning. There is no significant reversibility in this region to indicate an area of ischemia. There is some mild prominence of the left ventricular chamber size, which may be further assessed with echocardiogram. 6. Breast ultrasound localized sonographic imaging of right breast reveals skin thickening and mild edema could relate to cellulitis, but malignancy cannot be excluded. Recommend complete course of appropriate antibiotics as well as sonographic imaging follow up to confirm resolution of findings. BIRADS is 0, short term follow up right breast imaging and clinical assessment and following completion of treatment. 7. Fiberoptic bronchoscopy with intubation. 8. Follow up chest x-ray and interval placement of endotracheal tube seen with tip at the level of the clavicular heads. Nasogastric tube traced into the stomach. There is pulmonary vascular congestion with consolidation/atelectatic changes in the left lung base and accompanying left effusion, no pneumothoraces seen. 9. Additional followup chest x-ray showed large left pneumothorax, which may be under tension with rightward mediastinal shift, some of this mediastinal shift, there is sequelae rightward patient rotation. 10. Left subclavian triple lumen catheter and #8 Shiley tracheostomy tube. Low pressure cuff. 11. Left anterior second intercostal space, 8 Swedish chest tube placement. 12. Followup chest x-ray showed interval left thoracostomy tube placement with resolution of prior left pneumo. There was some extensive pulmonary parenchymal opacifications bilaterally with vascular congestion and enlarged cardiac silhouette, which may be related to decompensated congestive heart failure. 13. A #28 Swedish left tube thoracostomy. 14. A KUB to confirm Dobhoff in stomach. 15. Abdominal x-ray, metallic stylet of enteric catheter projects over medial left upper abdomen. PRIMARY DIAGNOSES: 1. Acute on chronic hypoxic respiratory failure likely secondary to chronic obstructive pulmonary disease exacerbation and diastolic congestive heart failure exacerbation. 2. Chronic obstructive pulmonary disease exacerbation. 3. Congestive heart failure, diastolic exacerbation. SECONDARY DIAGNOSES: 1. Hypothyroidism. 2. Morbid obesity. 3. Paroxysmal atrial fibrillation. 4. Hypertension. 5. Chronic obstructive pulmonary disease. 6. Chronic venous stasis. 7. Hyperlipidemia. 8. Congestive heart failure, diastolic. 9. Depression. 10. Obstructive sleep apnea. DISCHARGE MEDICATIONS: 1. Ipratropium bromide 2.5 mL nebulized every 2 hours as needed. 2. Docusate sodium 100 mg oral twice daily. 3. Polyethylene glycol 17 grams oral daily. 4. B complex with vitamin C 1 tablet oral daily. 5. Eliquis 5 mg oral twice a day. 6. Aspirin 81 mg oral daily. 7. Pantoprazole 40 mg oral daily. 8. Simvastatin 20 mg oral at bedtime. 9. Citalopram 20 mg oral daily. 10. Ferrous sulfate 325 mg oral twice daily. 11. Potassium chloride 20 mEq oral daily. 12. Levothyroxine sodium 112 mcg oral daily. 13. Furosemide 40 mg oral daily. DISCONTINUED MEDICATIONS: Ibuprofen 600 mg twice daily. HISTORY OF PRESENT ILLNESS/HOSPITAL COURSE: This is a 62-year-old female with past medical history of COPD, NOS on CPAP at night 2 liters during the day at home recently had a diagnosis of diastolic congestive heart failure that presented with a 1-day history of shortness of breath and chest pain. She also endorsed a cough, presented with altered mentation. Upon evaluation, she was on Venturi mask at 24% FIO2. She would follow commands, but did not respond well to questions, required multiple attempts for asking questions to respond. In the ER, she received 80 mg of Lasix IV, nitropatch and aspirin 324 mg. During hospitalization, the patient had a tracheostomy and PEG tube placed. She was also treated for Escherichia coli, urinary tract infection. Attempts were made at getting the patient placed in short-term nursing facility versus an inpatient rehab; however, she was denied at all facilities except for one short-term nursing facility where the family was unable to afford the care there. Thus, we worked with case management to get home health with PT set up. Patient's family agreed that they would be able to take care of her at home given her new care requirements to include trach care and PEG tube care. Family did come up to the hospital for training, and stated that they would feel comfortable doing this at home. Patient will have a home health nurse out to the house a couple of times a week to help out. Armida with case management was very helpful in getting everything together and patient was sent home with oxygen, nebulizers, tracheostomy kit as well as PEG tube equipment and feedings. We were able to rent the family a hospital bed until they can get one on their own. Patient did fairly well throughout the course of her hospital stay. Upon discharge, she was stable on the trach collar and was not requiring any medical care from our standpoint. Please refer to Dr. Deluna's transition of care note from 08/30/2017 for more elaborate details regarding the patient's care over the course of her hospital stay. DISPOSITION: Guarded. DISCHARGE INSTRUCTIONS: 1. Location: Home with home health and PT. 2. Diet: PEG tube feedings. 3. Activity: As tolerated. 4. Followup: Patient will be followed by home health, although it is advised that she have some followup with her primary care physician at [facility] or have home visits established. JLUIS
== END 2017-09-01 18:30 | disposition home health service (06) | DRG 4 ==
LOC: ERS 05:35 → IMCU/EMU 17:08 → CCU 08-04 09:09 → IMCU/EMU 08-15 14:28 → T4-A 08-25 14:12
PROVIDERS: ADMIT Family Medicine; ATTEND Family Medicine
PROC: 5A1955Z Respiratory Ventilation, Greater than 96 Consecutive Hours (ICD-10-PCS; 2017-08-04)
PROC: 0BJ08ZZ Inspection of Tracheobronchial Tree, Via Natural or Artificial Opening Endoscopic (ICD-10-PCS; 2017-08-04)
PROC: 0BH18EZ Insertion of Endotracheal Airway into Trachea, Via Natural or Artificial Opening Endoscopic (ICD-10-PCS; 2017-08-04)
PROC: 0B110F4 Bypass Trachea to Cutaneous with Tracheostomy Device, Open Approach (ICD-10-PCS; principal; 2017-08-06)
PROC: 0W9B00Z Drainage of Left Pleural Cavity with Drainage Device, Open Approach (ICD-10-PCS; 2017-08-06)
PROC: 02HV33Z Insertion of Infusion Device into Superior Vena Cava, Percutaneous Approach (ICD-10-PCS; 2017-08-06)
PROC: 0W9B00Z Drainage of Left Pleural Cavity with Drainage Device, Open Approach (ICD-10-PCS; 2017-08-07)
PROC: 0DH68UZ Insertion of Feeding Device into Stomach, Via Natural or Artificial Opening Endoscopic (ICD-10-PCS; 2017-08-08)
PROC: 0DH63UZ Insertion of Feeding Device into Stomach, Percutaneous Approach (ICD-10-PCS; 2017-08-11)
DX: J96.21 Acute and chronic respiratory failure with hypoxia (principal); R57.9 Shock, unspecified; I50.33 Acute on chronic diastolic (congestive) heart failure; D61.818 Other pancytopenia; E46 Unspecified protein-calorie malnutrition; E11.622 Type 2 diabetes mellitus with other skin ulcer; R13.10 Dysphagia, unspecified; E87.2 Acidosis; E66.2 Morbid (severe) obesity with alveolar hypoventilation; I48.0 Paroxysmal atrial fibrillation; J44.1 Chronic obstructive pulmonary disease with (acute) exacerbation; Z68.43 Body mass index [BMI] 50.0-59.9, adult; N30.01 Acute cystitis with hematuria; L97.829 Non-pressure chronic ulcer of other part of left lower leg with unspecified severity; J95.811 Postprocedural pneumothorax; I11.0 Hypertensive heart disease with heart failure; K74.60 Unspecified cirrhosis of liver; J96.22 Acute and chronic respiratory failure with hypercapnia; G47.33 Obstructive sleep apnea (adult) (pediatric); E03.9 Hypothyroidism, unspecified; E78.5 Hyperlipidemia, unspecified; F32.9 Major depressive disorder, single episode, unspecified; K59.00 Constipation, unspecified; N64.4 Mastodynia; B96.20 Unspecified Escherichia coli [E. coli] as the cause of diseases classified elsewhere; Z88.0 Allergy status to penicillin; Z83.3 Family history of diabetes mellitus; Z79.4 Long term (current) use of insulin; Z79.01 Long term (current) use of anticoagulants; Z87.891 Personal history of nicotine dependence; Z99.81 Dependence on supplemental oxygen; D53.9 Nutritional anemia, unspecified; I83.028 Varicose veins of left lower extremity with ulcer other part of lower leg; Y83.8 Other surgical procedures as the cause of abnormal reaction of the patient, or of later complication, without mention of misadventure at the time of the procedure
CPT/HCPCS: 36415; 36416; 51702; 71010; 71045; 74018; 78452; 80048; 80053; 80076; 81003; 81015; 82103; 82550; 82553; 82805; 83516; 83690; 83735; 83880; 84100; 84439; 84443; 84484; 85025; 85049; 86038; 87077; 87086; 87186; 93005; 93017; 93798; 94002; 94003; 94640; 94660; 94760; 96374; A4216; A9500; G8978-GP-CL; G8978-GP-CM; G8979-GP-CK; G8987-GO-CK; G8987-GO-CM; G8988-GO-CJ; G8988-GO-CK; G8996-GN-CN; G8997-GN-CL; J0696; J1650; J1885; J1940; J2001; J2060; J2250; J2405; J2704; J2920; J3010; J3475; J3480; J3490; J7050; J7070; J7620; J7626; S0028

== ENCOUNTER 2017-09-04 21:03 | Emergency (ER) | payer OTHER ==
[2017-09-04 22:16] LABS: #Basophils 0.1 thou/uL (0.0-0.2); #Eosinphils 0.4 thou/uL (0.0-0.7); #Monocytes 0.8 thou/uL (0.11-0.59); #Neutrophils 1.9 thou/uL (1.40-6.50); %Basophils 1.8 % (0.0-1.0); %Eosinophils 5.7 % (0.0-10.0); %Lymphocytes 48.1 % (21.0-51.0); %Monocytes 13.2 % (0.0-10.0); %Neutrophils 31.2 % (42.0-75.0); Hemoglobin 9.3 g/dL (12.0-16.0); Mean Corpuscular HGB CONC 32.1 g/dL (32.0-36.0); Mean Corpuscular Hemoglobin 32.2 pg (27.0-31.0); Platelet Count 161 thou/uL (130-400); RBC Distribution Width 16.3 % (11.5-14.5); Red Blood Cell (RBC) Count 2.88 mill/uL (4.20-5.40); White Blood Cell (WBC) Count 6.2 thou/uL (4.8-10.8)
--- NOTE | 2017-09-04 22:18 | RAD ---
SINGLE VIEW OF THE ABDOMEN 09/04/17 COMPARISON: 08/11/17 HISTORY: Dyspnea. FINDINGS: Single view of the chest shows the cardiomediastinal silhouette which is upper limits of normal in si ze. The tracheostomy is seen in good position within the trachea. There is no evidence of consolidati on, mass or pleural effusion. IMPRESSION: No evidence of acute cardiopulmonary disease. POS: [facility]
[2017-09-04 22:24] LABS: PTT 43.9 SEC (22.9-36.1); Prothrombin Time 22.9 SEC (12.0-14.7)
[2017-09-04 22:34] LABS: Anion Gap 13 mmol/L (10-20); BUN (Urea Nitrogen) 20 mg/dL (9.8-20.1); Calc. Creatinine Clearance 0 mL/min (70-130); Calcium 8.7 mg/dL (7.8-10.44); Carbon Dioxide 28 mmol/L (22-29); Chloride 101 mmol/L (98-107); Estimated GFR-MDRD 70; Glucose 99 mg/dL (70-105); Potassium 3.7 mmol/L (3.5-5.1); Sodium 138 mmol/L (136-145)
[2017-09-04 22:41] LABS: CKMB 1.8 ng/mL (0-6.6); Troponin I 0.028 ng/mL (< 0.028)
[2017-09-04] MEDS ORDERED: Ketorolac Tromethamine 30 MG/ML VIAL ONE (23:56)
== END 2017-09-05 00:24 | disposition home or self-care (01) ==
LOC: ERS 21:03
DX: J95.03 Malfunction of tracheostomy stoma (principal); E78.5 Hyperlipidemia, unspecified; E10.9 Type 1 diabetes mellitus without complications; E03.9 Hypothyroidism, unspecified; E66.9 Obesity, unspecified; J44.9 Chronic obstructive pulmonary disease, unspecified; F32.9 Major depressive disorder, single episode, unspecified; Z87.891 Personal history of nicotine dependence
CPT/HCPCS: 36415; 71045; 80048; 82553; 83880; 84484; 85025; 85610; 85730; 87040; 93005; J1885

== ENCOUNTER 2017-09-16 14:48 | Outpatient (CLI) | payer OTHER ==
--- NOTE | 2017-09-16 15:19 | RAD ---
CHEST 2 VIEWS: HISTORY: Dyspnea. COMPARISON: 09/04/17. FINDINGS: The cardiac silhouette is magnified by projection. Shallow inspiration accentuates pulmonary marking s. Ill-defined parenchymal opacity at the left base on the frontal view may represent a subtle paren chymal opacity at the lung bases on the lateral view. There is no obscuration of the hemidiaphragms. Mediastinum is midline with tracheostomy appliance. No evidence of pneumothorax or pleural fluid. IMPRESSION: Subtle left basilar infiltrate. Clinical correlation regarding other signs and symptoms of left basi lar pneumonitis versus simple pulmonary vascular congestion is required. Please consider radiographi c followup after medical treatment to evaluate for clearing. POS: [facility]
== END 2017-09-16 14:49 | disposition home or self-care (01) ==
LOC: RAD 14:48
PROVIDERS: ATTEND Family Medicine
DX: J93.11 Primary spontaneous pneumothorax (principal); R91.8 Other nonspecific abnormal finding of lung field
CPT/HCPCS: 71046

== ENCOUNTER 2017-10-04 10:46 | Inpatient (IN) | payer OTHER ==
[2017-10-04 11:38] LABS: #Basophils 0.1 thou/uL (0.0-0.2); #Monocytes 0.5 thou/uL (0.11-0.59); #Neutrophils 1.9 thou/uL (1.40-6.50); %Basophils 1.4 % (0.0-1.0); %Eosinophils 0.6 % (0.0-10.0); %Lymphocytes 43.5 % (21.0-51.0); %Monocytes 11.2 % (0.0-10.0); %Neutrophils 43.3 % (42.0-75.0); Hemoglobin 8.8 g/dL (12.0-16.0); Mean Corpuscular HGB CONC 32.1 g/dL (32.0-36.0); Mean Corpuscular Hemoglobin 30.8 pg (27.0-31.0); Mean Platelet Volume 8.7 fL (7.4-10.4); Platelet Count 141 thou/uL (130-400); RBC Distribution Width 16.3 % (11.5-14.5); Red Blood Cell (RBC) Count 2.87 mill/uL (4.20-5.40); White Blood Cell (WBC) Count 4.5 thou/uL (4.8-10.8)
[2017-10-04 11:40] LABS: INR-International Normal Ratio 2.4; Prothrombin Time 27.2 SEC (12.0-14.7)
[2017-10-04] MEDS ORDERED: Pantoprazole 40 MG VIAL ONE (11:42)
[2017-10-04 11:52] LABS: ALT (SGPT) 10 U/L (8-55); AST (SGOT) 33 U/L (5-34); Albumin 2.4 g/dL (3.5-5.0); Alkaline Phosphatase 118 U/L (40-150); Anion Gap 15 mmol/L (10-20); BUN (Urea Nitrogen) 25 mg/dL (9.8-20.1); Bilirubin, Total 1.1 mg/dL (0.2-1.2); Calc. Creatinine Clearance 0 mL/min (70-130); Calcium 8.7 mg/dL (7.8-10.44); Carbon Dioxide 28 mmol/L (22-29); Chloride 96 mmol/L (98-107); Estimated GFR-MDRD 43; Globulin 5.2 g/dL (2.4-3.5); Glucose 148 mg/dL (70-105); Potassium 3.5 mmol/L (3.5-5.1); Protein, Total 7.6 g/dL (6.0-8.3); Sodium 135 mmol/L (136-145)
[2017-10-04] MEDS ORDERED: Ondansetron HCl/PF 4 MG/2 ML Vial IVP PRN (13:13)
[2017-10-04] MEDS ORDERED: Dextrose 50% Abboject 50 ML SYRINGE SLOW IVP PRN (13:13)
[2017-10-04] MEDS ORDERED: Dextrose 5% in Water 1,000 ML IV PRN (13:13)
[2017-10-04] MEDS ORDERED: Insulin Regular 300 UNITS/3 ML VIAL SC PRN (13:13)
--- NOTE | 2017-10-04 13:20 | CT ---
CT ABDOMEN AND PELVIS WITH IV CONTRAST: 10/04/2017 HISTORY: Left upper quadrant abdominal pain. Blood in stool with onset of symptoms 3 days ago. Patient also having nausea and vomiting. COMPARISON: Studies on 07/08/2017 and 11/22/2010. FINDINGS: The heart is mildly enlarged. There is bibasilar atelectasis. Post-cholecystectomy changes are again seen. There is a lobulated appearance of the liver again sugg esting cirrhosis. The spleen is not enlarged, but small varices are seen in the left upper quadrant. There is an exophytic hypodense cystic lesion at the inferior pole right kidney also seen on the prio r exams in 2017 as well as a study on 11/22/2010. This is unchanged in size when compared to those p rior exams, but this cannot be characterized as a simple cyst on this exam. While findings on most r ecent study on 07/08/2017 suggested attenuation coefficient related to a cyst, there is artifact exte nding through this region on that exam which is likely related to erroneous Hounsfield units. Howeve r, the attenuation coefficient is similar to the prior study in 2010, and this is also unchanged in s ize from that exam. There is a calcification seen in the superior pole of the left kidney likely related to nonobstructin g calculus measuring approximately 3 mm consistent with nonobstructing left renal calculus. The pancreas, bilateral adrenal glands, spleen, urinary bladder, uterus, and adnexal structures demon strate a normal CT appearance. Vascular calcifications are again seen in the abdominal aorta and involving the iliac arteries. There is a fat-containing umbilical hernia again present. Prominent degenerative changes are seen in the spine. Gastrostomy tube is now noted in place. No other interval change. IMPRESSION: 1. Exophytic lesion within the inferior pole right kidney which does not demonstrate an attenuation c oefficient consistent with a cyst. However, this is stable in size compared to the study in 2017 as well a study in 2010. 2. Cardiomegaly. 3. Cirrhosis. 4. Post-cholecystectomy changes. 5. Nonobstructing left renal calculus. 6. Fat-containing umbilical hernia. POS: [facility]
--- NOTE | 2017-10-04 13:27 | PDOC.FPRHP ---
- History of Present Illness Chief Complaint: Bright red blood per rectum History of Present Illness: This is a chronically ill 62 yo F with a trach collar who comes in from hospice with chief complaint of bright red blood per rectum. Her PMH includes DM , COPD, KATE, HTN, Venous stais, HLD, CHF, and cholecystectomy. Patient states she has had 3 days of bright red blood per rectum, progressivley worse to today. She also reports 3 days of stabbing LUQ pain worsened by eating. The pain comes and goes randomly. There is nothing that makes the pain better. Patient states she has had 2 bowel movements today and both were bloody. She states that she has had nausea and vomiting for the last 3 days. She also states that she has been getting progressively more short of breath for the last three days. The cough has been productive. She denies fevers, chills, or sweats. ED Course: 2 BMs in ED Hypotensive to 60s systolic after BM, quickly recovered GI consulted - Allergies/Adverse Reactions Allergies Allergy/AdvReac Type Severity Reaction Status Date / Time Penicillins Allergy Intermediate Rash Verified 08/01/17 17:31 amoxicillin [Amoxicillin] Allergy Verified 08/01/17 17:31 - Home Medications Medication Instructions Recorded Confirmed Type Pantoprazole [Protonix] 40 mg PO Q24HR #30 tab 02/02/17 08/03/17 Rx Citalopram [CeleXA] 20 mg PO DAILY 05/07/17 08/03/17 History Simvastatin [Zocor] 20 mg PO HS 05/07/17 08/03/17 History Ferrous Sulfate [Feosol] 325 mg PO BID-WM #60 tab 05/20/17 08/03/17 Rx Levothyroxine Sodium 112 mcg PO DAILY 06/20/17 08/03/17 History Potassium Chloride [K-Dur] 20 meq PO DAILY 06/20/17 08/03/17 History Furosemide [Lasix] 40 mg PO DAILY-AC #30 tab 06/23/17 08/03/17 Rx Ipratropium [place] [Atrovent] 2.5 ml NEB Q2HR #1 box 09/01/17 Rx - History PMHx: DM, COPD, Anemia, KATE, hypothyroidism, HTN, venous stasis ulcers, HLD, CHF PSHx: Cholecystectomy FHx: unable to obtain 2/2 trach Social: hx of tobacco use, denies alcohol/drug use - Review of Systems ROS unobtainable: other (ROS is limited due to trach collar) General: denies: fever/chills Eyes: denies: vision changes ENT: denies: nasal congestion, rhinorrhea Respiratory: reports: cough, congestion, shortness of breath Cardiovascular: reports: orthopnea. denies: chest pain, palpitation Gastrointestinal: reports: nausea, vomiting, abdominal pain, GI bleeding Skin: reports: other (chronic wounds on LEs) Musculoskeletal: denies: pain, tenderness Neurological: denies: numbness, syncope - Vital signs BP: [117/53] HR: [82] RR: [28] Tmax: [98.2] Pox: [100]% on [3] Wt: [97.5] - Physical Exam Constitutional: awake, alert and oriented (mild distress secondary to coughing) HEENT: normocephalic and atraumatic, conjunctiva clear, grossly normal vision Neck: supple, FROM Heart: RRR, no murmurs/rubs/gallops, other (pulses difficult to appreciate 2/2 edema of lower extremities, good cap refill) Lungs: other (wheezes bilaterally, mild stridor, moderate air movement, increased work of breathing) Abdomen: soft, non-tender, bowel sounds present Musculoskeletal: normal structure, normal tone Neurological: no focal deficit, CN II-XII intact Skin: no rash/lesions, capillary refill <2 seconds Heme/Lymphatic: other (last dose of eliquis was this AM) Psychiatric: other (compliant with examination) FMR H&P: Results - Labs Result Diagrams: 10/04/17 11:24 10/04/17 11:24 Lab results: WBC 4.5 thou/uL (4.8-10.8) L 10/04/17 11:24 Hgb 8.8 g/dL (12.0-16.0) L 10/04/17 11:24 Hct 27.5 % (36.0-47.0) L 10/04/17 11:24 MCV 96.0 fl (81.0-99.0) 10/04/17 11:24 Plt Count 141 thou/uL (130-400) 10/04/17 11:24 Neutrophils % 43.3 % (42.0-75.0) 10/04/17 11:24 Sodium 135 mmol/L (136-145) L 10/04/17 11:24 Potassium 3.5 mmol/L (3.5-5.1) 10/04/17 11:24 Chloride 96 mmol/L (98-107) L 10/04/17 11:24 Carbon Dioxide 28 mmol/L (22-29) 10/04/17 11:24 BUN 25 mg/dL (9.8-20.1) H 10/04/17 11:24 Creatinine 1.26 mg/dL (0.6-1.1) H 10/04/17 11:24 Glucose 148 mg/dL (70-105) H 10/04/17 11:24 Calcium 8.7 mg/dL (7.8-10.44) 10/04/17 11:24 Total Bilirubin 1.1 mg/dL (0.2-1.2) 10/04/17 11:24 AST 33 U/L (5-34) 10/04/17 11:24 ALT 10 U/L (8-55) 10/04/17 11:24 Alkaline Phosphatase 118 U/L (40-150) 10/04/17 11:24 Serum Total Protein 7.6 g/dL (6.0-8.3) 10/04/17 11:24 Albumin 2.4 g/dL (3.5-5.0) L 10/04/17 11:24 FMR H&P: A/P - Problem List (1) Abdominal pain Current Visit: No Status: Acute Code(s): R10.9 - UNSPECIFIED ABDOMINAL PAIN Qualifiers: Abdominal location: generalized Qualified Code(s): R10.84 - Generalized abdominal pain (2) Chronic respiratory failure Current Visit: No Status: Acute Code(s): J96.10 - CHRONIC RESPIRATORY FAILURE, UNSP W HYPOXIA OR HYPERCAPNIA (3) Cirrhosis Current Visit: No Status: Acute Code(s): K74.60 - UNSPECIFIED CIRRHOSIS OF LIVER Qualifiers: Hepatic cirrhosis type: unspecified hepatic cirrhosis Ascites presence: without ascites Qualified Code(s): K74.60 - Unspecified cirrhosis of liver (4) Diabetic neuropathy Current Visit: No Status: Acute Code(s): E11.40 - TYPE 2 DIABETES MELLITUS WITH DIABETIC NEUROPATHY, UNSP (5) Fatty liver Current Visit: No Status: Acute Code(s): K76.0 - FATTY (CHANGE OF) LIVER, NOT ELSEWHERE CLASSIFIED (6) GERD (gastroesophageal reflux disease) Current Visit: No Status: Acute Code(s): K21.9 - GASTRO-ESOPHAGEAL REFLUX DISEASE WITHOUT ESOPHAGITIS (7) GI (gastrointestinal bleed) Current Visit: No Status: Acute Code(s): K92.2 - GASTROINTESTINAL HEMORRHAGE , UNSPECIFIED (8) History of tobacco abuse Current Visit: No Status: Acute Code(s): Z87.891 - PERSONAL HISTORY OF NICOTINE DEPENDENCE (9) KATE (obstructive sleep apnea) Current Visit: No Status: Acute Code(s): G47.33 - OBSTRUCTIVE SLEEP APNEA ( ADULT) (PEDIATRIC) (10) Stasis dermatitis of both legs Current Visit: No Status: Acute Code(s): I87.2 - VENOUS INSUFFICIENCY ( CHRONIC) (PERIPHERAL) (11) COPD (chronic obstructive pulmonary disease) Current Visit: No Status: Chronic (12) Chronic anemia Current Visit: No Status: Chronic Code(s): D64.9 - ANEMIA, UNSPECIFIED (13) Diastolic CHF Current Visit: No Status: Chronic Code(s): I50.30 - UNSPECIFIED DIASTOLIC ( CONGESTIVE) HEART FAILURE (14) Hyperlipemia Current Visit: No Status: Chronic Code(s): E78.5 - HYPERLIPIDEMIA, UNSPECIFIED Qualifiers: Hyperlipidemia type: mixed hyperlipidemia Qualified Code(s): E78.2 - Mixed hyperlipidemia (15) Hypertension Current Visit: No Status: Chronic Code(s): I10 - ESSENTIAL (PRIMARY) HYPERTENSION Qualifiers: Hypertension type: essential hypertension Qualified Code(s): I10 - Essential (primary) hypertension (16) Obesity, morbid Current Visit: No Status: Chronic Code(s): E66.01 - MORBID (SEVERE) OBESITY DUE TO EXCESS CALORIES (17) Type 2 diabetes mellitus Current Visit: No Status: Chronic Qualifiers: Diabetes mellitus complication status: with skin complications Diabetes mellitus complication detail: with other skin ulcer Diabetes mellitus moth exterminator insulin use: unspecified moth exterminator insulin use status Qualified Code(s): E11.622 - Type 2 diabetes mellitus with other skin ulcer; L98.499 - Non- pressure chronic ulcer of skin of other sites with unspecified severity; L98.499 - Non-pressure chronic ulcer of skin of other sites with unspecified severity; L98.499 - Non-pressure chronic ulcer of skin of other sites with unspecified severity; L98.499 - Non-pressure chronic ulcer of skin of other sites with unspecified severity - Plan This is a chronically ill 62 yo F admitted for evaluation of GI bleed # GI bleed - dark red blood per rectum, no hemorrhoids on rectal exam - Hgb 8.8 which is above her baseline - Episode of hypotension after BM in ER, likely vasovagal, monitor - GI consulted - last eliquis around 10am this morning, held # COPD, possible exacerbation - levoquin, prednisone, duonebs - cough and increased production for 3 days # MALISSA - trend Cr # KATE - CPAP at night # Cirrhosis - dose meds appropriately # DM - Sliding scale - accuchecks q6hrs # GERD - protonix # Wounds - wound care consulted - RLE venous stasis - raw skin around trach collar # Chronic anemia - trend CBC # CHF - clinically does not appear overloaded - monitor and diuresis as necessary - f/u on CXR # Paroxysmal A. fib - hold anticoagulant for now # Code status - full code - on hospice at home # PPx - SCDs - Eliquis, aspirin held FMR H&P: Upper Level - Pertinent history 62 year old female presents with bright red blood pre rectum starting today x2 episodes. Of note, she is currently on Eliquis due to history of atrial fibrillation. She also reports a few days of progressively worsening right upper quadrant stabbing pain. Not improved or exacerbated by anything. She reports increased sputum production over the last few days in addition to shortness of breath. She denies fevers, chills, sweats, chest pain, abdominal pain. - Pertinent findings Vital Signs at time of my exam: Temp 98.0 RR 28 HR 82 BP 117/53 O2 sat 100% on 3L Exam: Gen: NAD, awake, nontoxic, oriented to person and place. Patient struggles to communicate due to tracheostomy Eyes: PERRLA, EOMI ENT: MMM, oropharynx clear CV: RRR. No murmurs, rubs, gallops auscultated. Pulses full and equal in all 4 extremities Resp: Scattered wheezing. Coarse upper airway breath sounds Abd: Nontender, nondistended, no guarding or rebound. PEG tube in place Ext: No edema. Equal movements bilaterally Skin: Venous stasis changes of bilateral lower extremities Neuro: No focal deficits - Plan Date/Time: 10/04/17 1324 A/P: 62 year old female presents with: 1) Acute GI Bleed: Admit to IMCU. Patient will be monitored closely as she had an episode of hypotension in the ER after having a bowel move. Was given 1 liter of IV fluids. Her hemoglobin is stable from her previous hospital visit although hemoglobin would not necessarily be decreased at this point in the setting of a brisk acute bleed. However, her MAP at the time of my exam was 72 and she was not tachycardic. No tachycardia has been documented since her arrival, as would suspected in the case of a large acute bleed. Dr. Lucia, GI , was consulted by Dr. Gutiérrez from the ED and he plans to see the patient. Appreciate his assistance in this case. Single episode of hypotension may have been a vasovagal response to a bowel movement. Will monitor close. Hold anticoagulant. Will keep NPO until evaluated by GI 2) Acute COPD exacerbation: Patient uses oxygen at home but reports dyspnea, increased sputum production, and increased cough which are consistent with COPD exacerbation. Will give supplemental oxygen and add steroids and antibiotics. Chest x-ray ordered. Duonebs prn 3) MALISSA: Likely prerenal. Given fluids in ED. Will monitor 4) Normocytic anemia: Chronic, stable 5) Diabetes mellitus type 2: Accuchecks, sliding scale insulin 6) Obesity hypoventilation: O2 prn. Home CPAP/BiPAP at night 7) Hypertension: Hold home meds for now as patient is low normal to slightly hypotensive 8) Hypothyroidism: Home levothyroxine 9) Diastolic CHF: Strictly monitor urine output. Got fluids in ED. Will need to monitor for evidence of fluid overload 10) Obstructive sleep apnea: Home CPAP/BiPAP at night 11) Depression: Home meds when no longer NPO 12) Paroxysmal atrial fibrillation: Hold anticoagulant. Continue other home meds I, Robert Walker DO, have evaluated this patient and agree with findings/plan as outlined by internet network specialist resident. Pertinent changes/additions are listed here. Attending Addendum - Attending Addendum Date/Time: 10/04/17 [id number] I personally evaluated the patient and discussed the management with Dr. Hopper on 10/04/17. I agree with the History, Examination, Assessment and Plan documented above with any addition or exceptions noted below. Will treat for COPD exacerbation, have RT perform aggressive trach care, and consult GI for presumed lower GI bleed. Hg stable from previous checks and vitals are stable. Episode of hypotension in ER resolved with fluids, likely vasovagal as patient was otherwise normal.
[2017-10-04 15:15] LABS: Bilirubin Negative (Negative); Blood, Urine Large (Negative); Clarity CLOUDY (Clear); Glucose, Urine (Dipstick) Negative (Negative); Leukocyte Moderate (Negative); Nitrite Negative (Negative); Protein, Urine (Dipstick) Negative (Neg-Trace); Specific Gravity, Urine 1.026 (1.002-1.036); pH, Urine 6.5 (5.0-9.0)
[2017-10-04 15:17] LABS: Bacteria/HPF 4+ HPF (None Seen); Hyaline Casts/LPF 4-6 HYALINE CAST LPF (0-3 Hyaline); Pathc Cast-AUWi Flag 1.21 (0-2.49); RBC/HPF 21-50 HPF (0-3)
[2017-10-04] MEDS ORDERED: ISOVUE-370 76%-LOCM 1 ML ONE (16:06)
[2017-10-04] MEDS ORDERED: predniSONE 20 MG TAB PO SCH (16:15)
[2017-10-04] MEDS: Ipratropium Bromide 2.5 ml Neb NEB SCH ×3 (16:30→22:17)
[2017-10-04] MEDS: Ferrous Sulfate 325 MG TAB PO SCH (17:37)
--- NOTE | 2017-10-04 18:48 | RAD ---
CHEST ONE VIEW: History: Cough, sputum production. Comparison: 09-04-17 FINDINGS: Heart size is enlarged. Tracheostomy is similar. No pneumothorax. There are some linear opacities in the lingula. There is also patchy opacity of the left lung base. IMPRESSION: 1. Similar examination of the chest with multifocal atelectasis. 2. Focal opacity in the left lung base may represent developing pneumonia. POS: [facility]
[2017-10-04] MEDS: buPROPion HCl 100 MG TAB PO SCH (20:22)
[2017-10-04] MEDS ORDERED: Simvastatin 20 MG TAB PO SCH (21:00)
--- NOTE | 2017-10-04 21:28 | CON ---
DATE OF CONSULTATION: 10/04/2017 CHIEF COMPLAINT: Blood in stool. HISTORY OF PRESENT ILLNESS: Ms. Springer is a 62-year-old woman with morbid obesity and obesity hypov entilation syndrome, status post tracheostomy, who is reportedly on [facility]. She was adv ised to go to the emergency room by the home health agency due to blood in the stool. The patient re portedly had a couple episodes of red blood in the stool a few days ago and home health was told abou t this and ultimately advised her to come to the emergency room. She had a bowel movement in the [facility] room which was reportedly red bloody stool. She has had some stabbing left upper quadrant abd ominal pain. History at this point is limited to chart review and discussion with the nursing staff as she has a tracheostomy in place and is Irish speaking only and does not have the family at the [facility] currently or a supervisor steno pool immediately available. She did have a PEG tube placed in August by Dr. Perez. While she was having a bowel movement in the emergency room, she had an episode of hypo tension that quickly returned back to her baseline. PAST MEDICAL HISTORY: Chronic obstructive pulmonary disease, anemia, obstructive sleep apnea, hypoth yroidism, hypertension, venous stasis ulcers, hyperlipidemia, CHF, diabetes mellitus, morbid obesity. PAST SURGICAL HISTORY: Cholecystectomy. FAMILY HISTORY: Negative for GI malignancy. SOCIAL HISTORY: No alcohol, tobacco or drugs. ALLERGIES: PENICILLIN. MEDICATIONS: Prior to admission, Eliquis 5 mg twice daily, iron, furosemide, Atrovent, levothyroxine , pantoprazole, potassium, bupropion. REVIEW OF SYSTEMS: Negative x10 systems reviewed except as stated in history of present illness. PHYSICAL EXAMINATION: VITAL SIGNS: Temperature 98.0, pulse 83, blood pressure has been in the 90s systolic reportedly, oxy gen saturations 95% on 3 liters trach collar. GENERAL: She is in no acute distress. She is awake and alert. HEENT: Eyes have no scleral icterus. Oropharynx is clear, without lesions. She has a tracheostomy in place. NECK: There is no cervical or supraclavicular lymphadenopathy. LUNGS: Lungs have bilateral expiratory wheezes. ABDOMEN: Soft. She is tender in the left upper quadrant epigastric region without guarding. Bowel sounds are present. EXTREMITIES: 1+ pitting lower extremity edema. IMAGING: She had a CT scan of the abdomen and pelvis that showed a lesion on the right kidney. Agai n, evidence of cirrhosis with nodular liver was seen. A nonobstructing left renal calculus was seen. Her heart was enlarged. LABORATORY DATA: Current hemoglobin is 8.8. Her hemoglobin a month ago was 9.3 and a couple of week s before that 7.8, platelets 141, white blood cell count 4.5. INR 2.4. Creatinine 1.26 with a basel ine of 0.83, albumin 2.4. IMPRESSION: 1. Gastrointestinal bleed. Currently by rectal exam, she has black stools. She has been on iron. She reportedly had red bloody stools previously, but what I see in rectal exam now appears melenic. Lavage of her stomach through the PEG tube was performed with 500 mL of water and only clear slight b ilious return was seen. She did have EGD a month and a half ago which was normal and a PEG tube was placed at that time. She had colonoscopy [place] [address] Desai, which was normal. At this point, her bleeding may be more related to the anticoagulation and coagulopathy. It seems that her elevated INR is more likely related to the Eliquis rather than acute worsening of her underlying cirrhosis. She had no varices noted by the recent endoscopy. 2. Coagulopathy. She is on Eliquis and her last dose was this morning. Her INR is elevated at 2.4. She does have a history of cirrhosis, but this INR is higher than her previous. This could be due to toxicity with the Eliquis. Her creatinine is also above baseline, currently at 1.26 with a baseli ne of 0.83. This could increase the Eliquis levels for her. 3. Cirrhosis. Her albumin is 2.4, but her liver tests are otherwise fairly stable. Her bilirubin i s 1.1. The INR is elevated, but again no other signs of acute liver issue now. RECOMMENDATIONS: 1. Start proton pump inhibitor given melenic stool by rectal exam. 2. Hold Eliquis. Her last dose was this morning. Again, the risks versus benefits of this medicati on will have to be considered. It might just be that she is toxic on this medication currently and t hat the bleeding may not be from a large ulcer or significant source. She just had a negative colono scopy in 2014 and a negative EGD a month and a half ago. I will not plan repeat endoscopy immediatel y. We will continue to follow trend of her hemoglobin and for further evidence of overt bleeding. 3. It is okay to restart feeds at this point. 4. Follow trend of the INR and her hemoglobin.
[2017-10-05] MEDS: Ipratropium Bromide 2.5 ml Neb NEB SCH ×4 (02:17→05:16)
[2017-10-05 05:07] LABS: INR-International Normal Ratio 2.4; Prothrombin Time 26.7 SEC (12.0-14.7)
[2017-10-05] MEDS: Levothyroxine Sodium 112 MCG TAB PO SCH (05:28)
[2017-10-05 05:31] LABS: ALT (SGPT) 10 U/L (8-55); AST (SGOT) 28 U/L (5-34); Albumin 2.2 g/dL (3.5-5.0); Alkaline Phosphatase 110 U/L (40-150); Anion Gap 12 mmol/L (10-20); BUN (Urea Nitrogen) 23 mg/dL (9.8-20.1); Bilirubin, Total 0.9 mg/dL (0.2-1.2); Calc. Creatinine Clearance 115 mL/min (70-130); Calcium 8.4 mg/dL (7.8-10.44); Carbon Dioxide 26 mmol/L (22-29); Chloride 100 mmol/L (98-107); Estimated GFR-MDRD 55; Globulin 4.7 g/dL (2.4-3.5); Glucose 129 mg/dL (70-105); Potassium 3.4 mmol/L (3.5-5.1); Protein, Total 6.9 g/dL (6.0-8.3); Sodium 135 mmol/L (136-145)
--- NOTE | 2017-10-05 05:43 | PDOC.FM ---
- Subjective Subjective: This morning the patient denies any bloody stools overnight, but she attributes this to not having any tube feeds since coming to the hospital. She states that she is having increased sputum production but her work of breathing is about the same. She is sore around the area of her trach collar and her g-tube. - Objective Vital Signs & Weight: Vital Signs (12 hours) Temp Pulse Resp BP Pulse Ox 10/05/17 04:14 97.8 F 82 17 87/51 L 95 10/05/17 02:19 87 20 97 10/05/17 00:05 97.4 F L 81 19 89/51 L 93 L 10/04/17 22:17 76 18 94 L 10/04/17 21:00 91/49 L 10/04/17 20:01 97.5 F L 77 18 86/48 L 93 L 10/04/17 20:00 97.5 F L 77 18 93 L 10/04/17 18:28 85 18 Weight Weight 123.831 kg I&O: 10/03/17 10/04/17 10/05/17 06:59 06:59 06:59 Intake Total 50 Balance 50 Result Diagrams: 10/05/17 04:22 10/05/17 04:22 <Amrit Hopper - Last Filed: 10/05/17 12:45> - Objective Vital Signs & Weight: Vital Signs (12 hours) Temp Pulse Resp BP Pulse Ox 10/05/17 15:56 98.8 F 79 24 H 92/50 L 100 10/05/17 15:09 75 14 10/05/17 11:37 98.5 F 79 22 H 81/47 L 100 10/05/17 07:51 97.9 F 77 24 H 94 L 10/05/17 07:44 97.9 F 77 24 H 83/40 L 100 10/05/17 06:50 76 18 10/05/17 05:35 71 20 116/70 99 Weight Admit Weight 123.831 kg Weight 124.001 kg I&O: 10/04/17 10/05/17 10/06/17 06:59 06:59 06:59 Intake Total 280 Output Total 275 Balance 5 Result Diagrams: 10/05/17 04:22 10/05/17 04:22 <Ho Villalobos - Last Filed: 10/05/17 16:30> Phys Exam - Physical Examination Constitutional: NAD HEENT: PERRLA, moist MMs Neck: no nodes, full ROM Respiratory: no wheezing mild wheezing bilaterally, improved air movement from yesterday Cardiovascular: RRR, no significant murmur Gastrointestinal: soft, non-tender, no distention, positive bowel sounds no redness or signs of infection around G-tube site Musculoskeletal: no edema, pulses present Neurological: non-focal, normal sensation, moves all 4 limbs Psychiatric: normal affect <Amrit Hopper - Last Filed: 10/05/17 12:45> Dx/Plan (1) Abdominal pain Code(s): R10.9 - UNSPECIFIED ABDOMINAL PAIN Status: Acute QualifierTitle: Abdominal location: generalized Qualified Code(s): R10.84 - Generalized abdominal pain (2) Chronic respiratory failure Code(s): J96.10 - CHRONIC RESPIRATORY FAILURE, UNSP W HYPOXIA OR HYPERCAPNIA Status: Acute (3) Cirrhosis Code(s): K74.60 - UNSPECIFIED CIRRHOSIS OF LIVER Status: Acute QualifierTitle: Hepatic cirrhosis type: unspecified hepatic cirrhosis Ascites presence: without ascites Qualified Code(s): K74.60 - Unspecified cirrhosis of liver (4) Diabetic neuropathy Code(s): E11.40 - TYPE 2 DIABETES MELLITUS WITH DIABETIC NEUROPATHY, UNSP Status: Acute (5) Fatty liver Code(s): K76.0 - FATTY (CHANGE OF) LIVER, NOT ELSEWHERE CLASSIFIED Status: Acute (6) GERD (gastroesophageal reflux disease) Code(s): K21.9 - GASTRO-ESOPHAGEAL REFLUX DISEASE WITHOUT ESOPHAGITIS Status: Acute (7) GI (gastrointestinal bleed) Code(s): K92.2 - GASTROINTESTINAL HEMORRHAGE, UNSPECIFIED Status: Acute (8) History of tobacco abuse Code(s): Z87.891 - PERSONAL HISTORY OF NICOTINE DEPENDENCE Status: Acute (9) KATE (obstructive sleep apnea) Code(s): G47.33 - OBSTRUCTIVE SLEEP APNEA (ADULT) (PEDIATRIC) Status: Acute (10) Stasis dermatitis of both legs Code(s): I87.2 - VENOUS INSUFFICIENCY (CHRONIC) (PERIPHERAL) Status: Acute (11) COPD (chronic obstructive pulmonary disease) Status: Chronic (12) Chronic anemia Code(s): D64.9 - ANEMIA, UNSPECIFIED Status: Chronic (13) Diastolic CHF Code(s): I50.30 - UNSPECIFIED DIASTOLIC (CONGESTIVE) HEART FAILURE Status: Chronic (14) Hyperlipemia Code(s): E78.5 - HYPERLIPIDEMIA, UNSPECIFIED Status: Chronic QualifierTitle: Hyperlipidemia type: mixed hyperlipidemia Qualified Code( s): E78.2 - Mixed hyperlipidemia (15) Hypertension Code(s): I10 - ESSENTIAL (PRIMARY) HYPERTENSION Status: Chronic QualifierTitle: Hypertension type: essential hypertension Qualified Code( s): I10 - Essential (primary) hypertension (16) Obesity, morbid Code(s): E66.01 - MORBID (SEVERE) OBESITY DUE TO EXCESS CALORIES Status: Chronic (17) Type 2 diabetes mellitus Status: Chronic QualifierTitle: Diabetes mellitus complication status: with skin complications Diabetes mellitus complication detail: with other skin ulcer Diabetes mellitus fpc insulin use: unspecified fpc insulin use status Qualified Code(s): E11.622 - Type 2 diabetes mellitus with other skin ulcer; L98.499 - Non-pressure chronic ulcer of skin of other sites with unspecified severity; L98.499 - Non-pressure chronic ulcer of skin of other sites with unspecified severity; L98.499 - Non-pressure chronic ulcer of skin of other sites with unspecified severity; L98.499 - Non-pressure chronic ulcer of skin of other sites with unspecified severity - Plan Plan: This is a chronically ill 62 yo F admitted for evaluation of GI bleed. # GI bleed - dark red blood per rectum, no hemorrhoids on rectal exam - Hgb 8.8 which is above her baseline - Episode of hypotension after BM in ER, likely vasovagal, monitor - last eliquis around 10am 3/, held - GI consulted, likely coagulopathy 2/2 eliquis as opposed to lesion requiring scope - Will trend PT/INR, CBC - Pt reports no BM today, will watch for resolution - CHADs-VASC score shows 9.8% risk of thrombus, HAS-BLED shows 12.5% risk of bleed, will hold anticoagulation for now # COPD, possible exacerbation - levoquin, prednisone, duonebs - patient reports increased production - sputum culture - blood cultures taken in ED # MALISSA - trend Cr - decreased clearance could contribute to eliquis coagulopathy # KATE - CPAP at night # Cirrhosis - dose meds appropriately # DM - Sliding scale - accuchecks q6hrs # GERD - protonix # Wounds - wound care consulted - RLE venous stasis - raw skin around trach collar # Chronic anemia - trend CBC # CHF - clinically does not appear overloaded - monitor and diuresis as necessary - f/u on CXR # Paroxysmal A. fib - hold anticoagulant for now # Code status - full code - on hospice at home # PPx - SCDs - Eliquis, aspirin held <Amrit Hopper - Last Filed: 10/05/17 12:45> Attending Addendum - Attending Addendum Date/Time: 10/05/17 1630 I personally evaluated the patient and discussed the management with Dr. Hopper. I agree with the History, Examination, Assessment and Plan documented above with any addition or exceptions noted below. <Ho Villalobos - Last Filed: 10/05/17 16:30>
[2017-10-05 06:41] LABS: #Lymphocytes 0.9 thou/uL (1.20-3.40); #Monocytes 0.1 thou/uL (0.11-0.59); #Neutrophils 2.1 thou/uL (1.40-6.50); %Basophils 0.2 % (0.0-1.0); %Eosinophils 0.1 % (0.0-10.0); %Lymphocytes 28.3 % (21.0-51.0); %Monocytes 2.7 % (0.0-10.0); %Neutrophils 68.7 % (42.0-75.0); Hemoglobin 8.1 g/dL (12.0-16.0); MDiff Complete? YES; Mean Corpuscular HGB CONC 31.9 g/dL (32.0-36.0); Mean Corpuscular Hemoglobin 30.1 pg (27.0-31.0); Mean Corpuscular Volume 94.1 fl (81.0-99.0); Mean Platelet Volume 8.9 fL (7.4-10.4); PLT Morphology Comment Appears Decreased; Platelet Count 117 thou/uL (130-400); RBC Distribution Width 16.2 % (11.5-14.5); Target Cells SLIGHT = 2-5 cells (100X) (0-1/hpf)
[2017-10-05] MEDS ORDERED: Furosemide 40 MG TAB PO SCH (07:30)
[2017-10-05] MEDS ORDERED: Citalopram 20 MG TAB PO SCH (09:00)
[2017-10-05] MEDS ORDERED: Potassium Chloride 20 MEQ TAB PO SCH (09:00)
[2017-10-05] MEDS: Ferrous Sulfate 325 MG TAB PO SCH ×2 (09:23→15:06)
[2017-10-05] MEDS: predniSONE 20 MG TAB PO SCH (09:24)
[2017-10-05] MEDS: buPROPion HCl 100 MG TAB PO SCH ×2 (09:24→20:21)
[2017-10-05] MEDS: Sodium Chloride 0.9% 500 ML IV SCH ×2 (09:24→13:48)
--- NOTE | 2017-10-05 09:48 | CON ---
DATE OF CONSULTATION: 10/05/2017 REASON FOR EVALUATION: IMCU placement. HISTORY OF PRESENT ILLNESS: This is a 62-year-old female who has seen Dr. Brown several times in the past. She came in yesterday from home health stating that she was having bright red blood per rectum . She was seen and examined by GI. She was found to have some black stool. Right now she is being treated conservatively. She complains of some left upper quadrant pain near her PEG tube. She also complains of some pain around her tracheostomy site. PAST MEDICAL HISTORY: Obstructive sleep apnea requiring tracheostomy placement, diabetes mellitus, C OPD, anemia, hypertension, chronic venous stasis ulcers, hyperlipidemia, and congestive heart failure . PAST SURGICAL HISTORY: Cholecystectomy trach placement, PEG tube placement. FAMILY MEDICAL HISTORY: Unremarkable. SOCIAL HISTORY: History of tobacco use in the past. Does not consume alcohol, does not use illicit drugs. MEDICATIONS PRIOR TO ADMISSION: Pantoprazole, Celexa, Zocor, iron sulfate, levothyroxine, potassium chloride, Lasix, Atrovent. ALLERGIES: PENICILLIN, AMOXICILLIN. REVIEW OF SYSTEMS: Twelve point review of systems otherwise negative. PHYSICAL EXAMINATION: VITAL SIGNS: Temperature 97.9, pulse 70, respiration 24, sat 94%, blood pressure ranging between 83/ 40 and 116/70. GENERAL: The patient is awake, alert, and in no profound distress. HEENT: Pupils react. Sclerae anicteric. Oropharynx clear. NECK: Midline tracheostomy clean, well cared for. No JVD, no thyromegaly. CARDIOVASCULAR: S1, S2 regular. No audible murmur or gallop. LUNGS: Coarse rhonchi bilaterally. ABDOMEN: Mild tenderness around the PEG tube site. Otherwise, soft and nontender. EXTREMITIES: No clubbing, cyanosis, or edema. NEUROLOGIC: Moves all 4 extremities. SKIN: No obvious lesions. LABORATORY DATA: White blood cell count 3, hematocrit 25.4, platelet count 117. INR is 2.4. Sodium 135, potassium 3.4, chloride 100, CO2 26, BUN 23, creatinine 1.0, glucose 129. Chest x-ray reviewed personally by myself demonstrates an indwelling tracheostomy, slightly enlarged heart size, no obvious infiltrates. ASSESSMENT: 1. Gastrointestinal bleeding. 2. Patient chronically anticoagulated. 3. Cirrhosis. 4. Underlying obstructive sleep apnea and chronic obstructive pulmonary disease. RECOMMENDATIONS: 1. Respiratory status is stable. I would recommend holding anticoagulation. I am not completely morrissey re of the indication for chronic anticoagulation. 2. Tracheal suctioning as needed. 3. Can transfer from the IMCU if blood pressure is stable and she does not have gastrointestinal ble livier.
[2017-10-05] MEDS: traMADol HCl 50 MG TAB PO PRN (15:06)
[2017-10-05] MEDS: Pantoprazole 40 MG GRANULES PACKET PO SCH (20:21)
--- NOTE | 2017-10-05 20:26 | PRG ---
DATE OF SERVICE: 10/05/2017 SUBJECTIVE: Ms. Springer has had no further bowel movements today. She reports no abdominal pain. OBJECTIVE: VITAL SIGNS: Temperature 98.8, pulse 79, blood pressure is 92/50. GENERAL: She is in no acute distress. She is awake and alert. LUNGS: Clear to auscultation bilaterally. HEART: Regular rate and rhythm. ABDOMEN: Soft, nontender, nondistended. Bowel sounds are present. EXTREMITIES: A 1+ pitting lower extremity edema. LABORATORY DATA: White blood cell count 3.0, hemoglobin 8.1, platelets 117. INR 2.4, creatinine 1.0 2, albumin 2.2, bilirubin 0.9, AST 20, ALT 10, alkaline phosphatase 110. IMPRESSION: 1. Gastrointestinal bleed, presenting with melena. This was in the setting of chronic anticoagulati on and possible toxicity with Eliquis. She has no further bleeding now. 2. Coagulopathy. Her INR remains elevated at 2.4 this morning. This is in the setting of chronic E liquis use. Her last dose was yesterday morning. She has underlying cirrhosis; however, the degree of liver disease does not account completely for the elevated INR. It may be that she has toxicity w ith Eliquis given her acute renal insufficiency and chronic liver disease. She may need an alternati ve form of anticoagulation in the future. Considering her elevated INR now, I would continue to hold the Eliquis. There is no plan for endoscopy at this point. RECOMMENDATIONS: 1. Eliquis has been held. 2. Follow trend of the hemoglobin. 3. Supportive care.
[2017-10-06] MEDS: traMADol HCl 50 MG TAB PO PRN (01:19)
[2017-10-06 04:21] LABS: Hemoglobin 7.9 g/dL (12.0-16.0); Mean Corpuscular HGB CONC 32.2 g/dL (32.0-36.0); Mean Corpuscular Hemoglobin 30.4 pg (27.0-31.0); Mean Corpuscular Volume 94.5 fl (81.0-99.0); Mean Platelet Volume 8.2 fL (7.4-10.4); Platelet Count 122 thou/uL (130-400); RBC Distribution Width 16.4 % (11.5-14.5); Red Blood Cell (RBC) Count 2.61 mill/uL (4.20-5.40); White Blood Cell (WBC) Count 6.1 thou/uL (4.8-10.8)
[2017-10-06] MEDS: Levothyroxine Sodium 112 MCG TAB PO SCH (05:55)
--- NOTE | 2017-10-06 06:54 | PRG ---
DATE OF SERVICE: 10/06/2017 SUBJECTIVE: Ms. Springer has had no further bowel movements and no overt GI bleeding. OBJECTIVE: VITAL SIGNS: Temperature 97.2, pulse 77, blood pressure 96/52. GENERAL: She is in no acute distress. She is awake and alert. LUNGS: Clear to auscultation bilaterally. HEART: Regular rate and rhythm. ABDOMEN: Soft. She has mild tenderness around the PEG tube site, but otherwise her abdomen is nonte nder. Bowel sounds are present. EXTREMITIES: A 1+ pitting lower extremity edema. LABORATORY DATA: White blood cell count 6.1, hemoglobin 7.9, platelets 122. INR 2.0. IMPRESSION: 1. Anemia with apparent upper gastrointestinal bleed with melena. She has had no further overt blee ding for the last couple of days. Her hemoglobin decreased slightly today. However, she is fluid po sitive yesterday from IV fluids. 2. Coagulopathy. Her INR is still 2.0 this morning. Her last dose of Eliquis was 2 mornings ago. 3. History of cirrhosis with stable hepatic function overall. The elevated INR is more likely relat ed to the Eliquis rather than decompensation of her liver disease. Her albumin is low, however. Her bilirubin remains normal and her creatinine is stable. RECOMMENDATIONS: 1. Check alpha fetoprotein. 2. Anticoagulation is held. 3. Given the elevation of the INR, she might need to consider an alternative medication for anticoag ulation in the future. Coumadin could be considered so that the INR can be monitored. However, this does take longer to reverse. 4. No endoscopic intervention is planned. I will sign off for now. Please call if GI can be of ass istance. Of note, she is on iron supplementation and could pass additional black stools. At this po int, we will have to continue to follow the INR and correlate this with color of the stool output.
--- NOTE | 2017-10-06 08:55 | PDOC.FM ---
Addendum entered and electronically signed by Amrit Hopper MD 10/06/17 12:25: On rounds witnessed a bloody BM from the patient. Stool was charecteristic of lower GI bleed. Patient did not have any bloody BMs yesterday. - Will transfuse 1U, lasix 20mg IV following transfusion - Spoke to Dr. Lucia, he rec'd transfusion and will f/u on the patient tomorrow Original Note: - Subjective Subjective: This morning patient states that she would like to do whatever it takes to live as long as possible. She states she has some cough, but denies bloody stools. She states she is feeling much better overall today. Discussed risk of anti- coagulation vs not anti-coagulating with the patient. Will re-visit on rounds. - Objective Vital Signs & Weight: Vital Signs (12 hours) Temp Pulse Resp BP Pulse Ox 10/06/17 08:00 98.5 F 69 20 111/57 L 100 10/06/17 07:00 71 18 10/06/17 04:00 97.2 F L 77 20 96/52 L 100 10/06/17 00:10 97.8 F 87 19 91/62 100 10/05/17 22:00 87 18 118/57 L 100 Weight Admit Weight 123.831 kg Weight 124.511 kg I&O: 10/05/17 10/06/17 10/07/17 06:59 06:59 06:59 Intake Total 280 1900 Output Total 275 Balance 5 1900 Result Diagrams: 10/06/17 03:55 10/05/17 04:22 <Amrit Hopper - Last Filed: 10/06/17 08:52> - Objective Vital Signs & Weight: Vital Signs (12 hours) Temp Pulse Pulse Resp BP BP Pulse Ox 10/06/17 15:23 98.1 F 81 20 109/62 10/06/17 14:00 71 16 98 10/06/17 11:21 98.1 F 76 20 103/54 L 100 10/06/17 10:24 69 18 99 10/06/17 08:00 98.3 F 69 18 111/57 L 100 10/06/17 07:00 71 18 Weight Admit Weight 123.831 kg Weight 124.511 kg I&O: 10/05/17 10/06/17 10/07/17 06:59 06:59 06:59 Intake Total 280 1900 0 Output Total 275 Balance 5 1900 0 Result Diagrams: 10/06/17 03:55 10/05/17 04:22 <Ho Villalobos - Last Filed: 10/06/17 17:13> Phys Exam - Physical Examination Constitutional: NAD HEENT: PERRLA, moist MMs Neck: no nodes, full ROM Respiratory: no wheezing, clear to auscultation bilateral decreased production from trach collar Cardiovascular: RRR, no significant murmur, no rub Gastrointestinal: soft, non-tender, no distention, positive bowel sounds PEG site clean w/ no signs of infection Musculoskeletal: no edema, pulses present Neurological: moves all 4 limbs Skin: no rash, cap refill <2 seconds <Amrit Hopper - Last Filed: 10/06/17 08:52> Dx/Plan (1) Abdominal pain Code(s): R10.9 - UNSPECIFIED ABDOMINAL PAIN Status: Acute QualifierTitle: Abdominal location: generalized Qualified Code(s): R10.84 - Generalized abdominal pain (2) Chronic respiratory failure Code(s): J96.10 - CHRONIC RESPIRATORY FAILURE, UNSP W HYPOXIA OR HYPERCAPNIA Status: Acute (3) Cirrhosis Code(s): K74.60 - UNSPECIFIED CIRRHOSIS OF LIVER Status: Acute QualifierTitle: Hepatic cirrhosis type: unspecified hepatic cirrhosis Ascites presence: without ascites Qualified Code(s): K74.60 - Unspecified cirrhosis of liver (4) Diabetic neuropathy Code(s): E11.40 - TYPE 2 DIABETES MELLITUS WITH DIABETIC NEUROPATHY, UNSP Status: Acute (5) Fatty liver Code(s): K76.0 - FATTY (CHANGE OF) LIVER, NOT ELSEWHERE CLASSIFIED Status: Acute (6) GERD (gastroesophageal reflux disease) Code(s): K21.9 - GASTRO-ESOPHAGEAL REFLUX DISEASE WITHOUT ESOPHAGITIS Status: Acute (7) GI (gastrointestinal bleed) Code(s): K92.2 - GASTROINTESTINAL HEMORRHAGE, UNSPECIFIED Status: Acute (8) History of tobacco abuse Code(s): Z87.891 - PERSONAL HISTORY OF NICOTINE DEPENDENCE Status: Acute (9) KATE (obstructive sleep apnea) Code(s): G47.33 - OBSTRUCTIVE SLEEP APNEA (ADULT) (PEDIATRIC) Status: Acute (10) Stasis dermatitis of both legs Code(s): I87.2 - VENOUS INSUFFICIENCY (CHRONIC) (PERIPHERAL) Status: Acute (11) COPD (chronic obstructive pulmonary disease) Status: Chronic (12) Chronic anemia Code(s): D64.9 - ANEMIA, UNSPECIFIED Status: Chronic (13) Diastolic CHF Code(s): I50.30 - UNSPECIFIED DIASTOLIC (CONGESTIVE) HEART FAILURE Status: Chronic (14) Hyperlipemia Code(s): E78.5 - HYPERLIPIDEMIA, UNSPECIFIED Status: Chronic QualifierTitle: Hyperlipidemia type: mixed hyperlipidemia Qualified Code( s): E78.2 - Mixed hyperlipidemia (15) Hypertension Code(s): I10 - ESSENTIAL (PRIMARY) HYPERTENSION Status: Chronic QualifierTitle: Hypertension type: essential hypertension Qualified Code( s): I10 - Essential (primary) hypertension (16) Obesity, morbid Code(s): E66.01 - MORBID (SEVERE) OBESITY DUE TO EXCESS CALORIES Status: Chronic (17) Type 2 diabetes mellitus Status: Chronic QualifierTitle: Diabetes mellitus complication status: with skin complications Diabetes mellitus complication detail: with other skin ulcer 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 # GI bleed - dark red blood per rectum, no hemorrhoids on rectal exam - Hgb 8.8 which is above her baseline - Episode of hypotension after BM in ER, likely vasovagal, monitor - last eliquis around 10am /, held - Will trend PT/INR, CBC - Pt reports no BM today, will watch for resolution - CHADs-VASC score shows 9.8% risk of thrombus, HAS-BLED shows 12.5% risk of bleed, will hold anticoagulation for now - long discussion with patient, will re-discuss on rounds to form decision along with patient - GI consulted, likely coagulopathy 2/2 eliquis as opposed to lesion requiring scope, -GI is signed off, attributes bleed to eliquis, ok to start feeds # COPD, possible exacerbation - levoquin, prednisone, duonebs - patient reports increased production - sputum culture - blood cultures taken in ED # MALISSA - trend Cr - decreased clearance could contribute to eliquis coagulopathy # KATE - CPAP at night # Cirrhosis - dose meds appropriately # DM - Sliding scale - accuchecks q6hrs # GERD - protonix # Wounds - wound care consulted - RLE venous stasis - raw skin around trach collar # Chronic anemia - trend CBC # CHF - clinically does not appear overloaded - monitor and diuresis as necessary - f/u on CXR # Paroxysmal A. fib - hold anticoagulant for now # Code status - full code - on hospice at home # PPx - SCDs - Eliquis, aspirin held Dispo: home today or tomorrow pending [facility] mylaal and CM <Amrit Hopper - Last Filed: 10/06/17 08:52> Attending Addendum - Attending Addendum Date/Time: 10/06/17 1713 I personally evaluated the patient and discussed the management with Dr. Hopper, I agree with the History, Examination, Assessment and Plan documented above with any addition or exceptions noted below. <Ho Villalobos - Last Filed: 10/06/17 17:13>
--- NOTE | 2017-10-06 09:46 | PRG ---
DATE OF SERVICE: 10/06/2017 SUBJECTIVE: The patient is complaining of some soreness around tracheostomy site. PHYSICAL EXAMINATION: VITAL SIGNS: Temperature is 98.4, pulse 69, respirations 20, O2 sat 100%, blood pressure 111/57. HEENT: Unremarkable. NECK: No JVD. Trach is in good position. There is no erythema around the trach. CARDIAC: S1 and S2 regular. LUNGS: Clear. ABDOMEN: Soft. EXTREMITIES: No edema. ASSESSMENT: 1. Gastrointestinal bleeding. 2. Cirrhosis. 3. Status post trach for obstructive sleep apnea. PLAN: Continue tracheostomy care, probably close to discharge from my standpoint.
[2017-10-06] MEDS: Pantoprazole 40 MG GRANULES PACKET PO SCH ×2 (10:19→21:34)
[2017-10-06] MEDS: Ferrous Sulfate 325 MG TAB PO SCH ×2 (10:19→18:09)
[2017-10-06] MEDS: predniSONE 20 MG TAB PO SCH (10:19)
[2017-10-06] MEDS: buPROPion HCl 100 MG TAB PO SCH ×2 (14:29→21:35)
[2017-10-06] MEDS ORDERED: Furosemide 20 MG/2 ML VIAL SLOW IVP SCH (14:30)
--- NOTE | 2017-10-06 15:05 | RAD ---
MODIFIED BARIUM SWALLOW PERFORMED WITH SPEECH THERAPIST: History: Dysphagia, oropharyngeal phase with feeding difficulties. FINDINGS: The patient was given a variety of materials. This included thin and thick liquid nectar thick materi al. No solids were given. She showed a single episode of flash penetration with thin liquid by spoon. IMPRESSION: Single episode of flash penetration with thin liquid by spoon. POS: HYACINTH
[2017-10-06 20:23] LABS: Hemoglobin 8.8 g/dL (12.0-16.0)
--- NOTE | 2017-10-07 05:48 | PDOC.FM ---
- Subjective Subjective: Patient had 3 total dark bloody stool over the course of the day yesterday. Today she states she feels about the same as yesterday. Still with mild cough. She states the pain at her trach site and G tube site is improved. She is not having any pain with the BMs. - Objective Vital Signs & Weight: Vital Signs (12 hours) Temp Pulse Pulse Resp BP BP Pulse Ox 10/07/17 04:48 71 20 110/63 93 L 10/07/17 00:00 96 10/06/17 23:57 76 22 H 91/53 L 96 10/06/17 20:50 98.9 F 78 20 94 L 10/06/17 19:03 98.9 F 78 20 103/59 L 94 L 10/06/17 18:36 98.9 F 72 20 110/59 L 10/06/17 18:04 68 16 98 Weight Admit Weight 123.831 kg Weight 124.511 kg I&O: 10/05/17 10/06/17 10/07/17 06:59 06:59 06:59 Intake Total 280 1900 1516 Output Total 275 Balance 5 1900 1516 Result Diagrams: 10/07/17 07:22 10/07/17 07:22 <Amrit Hopper - Last Filed: 10/07/17 11:51> - Objective Vital Signs & Weight: Vital Signs (12 hours) Temp Pulse Resp BP Pulse Ox 10/07/17 12:00 98.2 F 77 24 H 99/57 L 95 10/07/17 10:04 71 20 10/07/17 08:00 98 F 71 20 93/50 L 94 L 10/07/17 06:39 95 10/07/17 06:35 75 20 95 10/07/17 04:48 71 20 110/63 93 L Weight Admit Weight 123.831 kg Weight 124.511 kg I&O: 10/06/17 10/07/17 10/08/17 06:59 06:59 06:59 Intake Total 1900 1856 Balance 1900 1856 Result Diagrams: 10/07/17 07:22 10/07/17 07:22 <Ho Villalobos - Last Filed: 10/07/17 14:11> Phys Exam - Physical Examination Constitutional: NAD HEENT: PERRLA, moist MMs Neck: no nodes, full ROM Respiratory: no wheezing <Amrit Hopper - Last Filed: 10/07/17 11:51> Dx/Plan (1) Abdominal pain Code(s): R10.9 - UNSPECIFIED ABDOMINAL PAIN Status: Acute QualifierTitle: Abdominal location: generalized Qualified Code(s): R10.84 - Generalized abdominal pain (2) Chronic respiratory failure Code(s): J96.10 - CHRONIC RESPIRATORY FAILURE, UNSP W HYPOXIA OR HYPERCAPNIA Status: Acute (3) Cirrhosis Code(s): K74.60 - UNSPECIFIED CIRRHOSIS OF LIVER Status: Acute QualifierTitle: Hepatic cirrhosis type: unspecified hepatic cirrhosis Ascites presence: without ascites Qualified Code(s): K74.60 - Unspecified cirrhosis of liver (4) Diabetic neuropathy Code(s): E11.40 - TYPE 2 DIABETES MELLITUS WITH DIABETIC NEUROPATHY, UNSP Status: Acute (5) Fatty liver Code(s): K76.0 - FATTY (CHANGE OF) LIVER, NOT ELSEWHERE CLASSIFIED Status: Acute (6) GERD (gastroesophageal reflux disease) Code(s): K21.9 - GASTRO-ESOPHAGEAL REFLUX DISEASE WITHOUT ESOPHAGITIS Status: Acute (7) GI (gastrointestinal bleed) Code(s): K92.2 - GASTROINTESTINAL HEMORRHAGE, UNSPECIFIED Status: Acute (8) History of tobacco abuse Code(s): Z87.891 - PERSONAL HISTORY OF NICOTINE DEPENDENCE Status: Acute (9) KATE (obstructive sleep apnea) Code(s): G47.33 - OBSTRUCTIVE SLEEP APNEA (ADULT) (PEDIATRIC) Status: Acute (10) Stasis dermatitis of both legs Code(s): I87.2 - VENOUS INSUFFICIENCY (CHRONIC) (PERIPHERAL) Status: Acute (11) COPD (chronic obstructive pulmonary disease) Status: Chronic (12) Chronic anemia Code(s): D64.9 - ANEMIA, UNSPECIFIED Status: Chronic (13) Diastolic CHF Code(s): I50.30 - UNSPECIFIED DIASTOLIC (CONGESTIVE) HEART FAILURE Status: Chronic (14) Hyperlipemia Code(s): E78.5 - HYPERLIPIDEMIA, UNSPECIFIED Status: Chronic QualifierTitle: Hyperlipidemia type: mixed hyperlipidemia Qualified Code( s): E78.2 - Mixed hyperlipidemia (15) Hypertension Code(s): I10 - ESSENTIAL (PRIMARY) HYPERTENSION Status: Chronic QualifierTitle: Hypertension type: essential hypertension Qualified Code( s): I10 - Essential (primary) hypertension (16) Obesity, morbid Code(s): E66.01 - MORBID (SEVERE) OBESITY DUE TO EXCESS CALORIES Status: Chronic (17) Type 2 diabetes mellitus Status: Chronic QualifierTitle: Diabetes mellitus complication status: with skin complications Diabetes mellitus complication detail: with other skin ulcer Diabetes mellitus long-term insulin use: unspecified superintendent marine oil terminal insulin use status Qualified Code(s): E11.622 - Type 2 diabetes mellitus with other skin ulcer; L98.499 - Non-pressure chronic ulcer of skin of other sites with unspecified severity; L98.499 - Non-pressure chronic ulcer of skin of other sites with unspecified severity; L98.499 - Non-pressure chronic ulcer of skin of other sites with unspecified severity; L98.499 - Non-pressure chronic ulcer of skin of other sites with unspecified severity - Plan Plan: This is a chronically ill 62 yo F admitted for evaluation of GI bleed. # GI bleed - dark red blood per rectum, no hemorrhoids on rectal exam - Hgb 8.8 which is above her baseline - Episode of hypotension after BM in ER, likely vasovagal, monitor - last eliquis around 10am 10/05, held - Will trend PT/INR, CBC - Pt reports no BM today, will watch for resolution - CHADs-VASC score shows 9.8% risk of thrombus, HAS-BLED shows 12.5% risk of bleed, will hold anticoagulation for now - long discussion with patient, will re-discuss on rounds to form decision along with patient - INR 2.4 -> 2.0 -> 1.7, gave Vit K PO 5 mg 10/07 - Ammonia 48 - GI consulted, likely coagulopathy 2/2 eliquis as opposed to lesion requiring scope, -GI is signed off, attributes bleed to eliquis, ok to start feeds # COPD, possible exacerbation - levoquin, prednisone, duonebs - patient reports increased production - sputum culture - blood cultures taken in ED # MALISSA - trend Cr - decreased clearance could contribute to eliquis coagulopathy # KATE - CPAP at night # Cirrhosis - dose meds appropriately # DM - Sliding scale - accuchecks q6hrs # GERD - protonix # Wounds - wound care consulted - RLE venous stasis - raw skin around trach collar # Chronic anemia - trend CBC # CHF - clinically does not appear overloaded - monitor and diuresis as necessary - f/u on CXR # Paroxysmal A. fib - hold anticoagulant for now # Code status - full code - on hospice at home # PPx - SCDs - Eliquis, aspirin held Dispo: home today or tomorrow pending [facility] and [facility] <Amrit Hopper - Last Filed: 10/07/17 11:51> Attending Addendum - Attending Addendum Date/Time: 10/07/17 7056 I personally evaluated the patient and discussed the management with Dr. [] I agree with the History, Examination, Assessment and Plan documented above with any addition or exceptions noted below. <Ho Villalobos - Last Filed: 10/07/17 14:11>
[2017-10-07] MEDS: Levothyroxine Sodium 112 MCG TAB PO SCH (06:27)
[2017-10-07 07:48] LABS: #Lymphocytes 2.7 thou/uL (1.20-3.40); #Monocytes 0.6 thou/uL (0.11-0.59); #Neutrophils 2.5 thou/uL (1.40-6.50); %Basophils 0.7 % (0.0-1.0); %Eosinophils 0.6 % (0.0-10.0); %Lymphocytes 45.9 % (21.0-51.0); %Neutrophils 42.8 % (42.0-75.0); Hemoglobin 8.9 g/dL (12.0-16.0); Mean Corpuscular HGB CONC 31.3 g/dL (32.0-36.0); Mean Corpuscular Hemoglobin 30.6 pg (27.0-31.0); Mean Corpuscular Volume 97.7 fl (81.0-99.0); Mean Platelet Volume 8.8 fL (7.4-10.4); Platelet Count 120 thou/uL (130-400); RBC Distribution Width 15.9 % (11.5-14.5); Red Blood Cell (RBC) Count 2.89 mill/uL (4.20-5.40); White Blood Cell (WBC) Count 5.9 thou/uL (4.8-10.8)
[2017-10-07] MEDS: Ferrous Sulfate 325 MG TAB PO SCH ×2 (09:43→18:03)
[2017-10-07] MEDS: Pantoprazole 40 MG GRANULES PACKET PO SCH ×2 (09:43→20:35)
[2017-10-07] MEDS: predniSONE 20 MG TAB PO SCH (09:43)
[2017-10-07] MEDS: buPROPion HCl 100 MG TAB PO SCH ×2 (09:43→20:38)
[2017-10-07 09:45] LABS: Anion Gap 12 mmol/L (10-20); BUN (Urea Nitrogen) 17 mg/dL (9.8-20.1); Calc. Creatinine Clearance 131 mL/min (70-130); Calcium 8.1 mg/dL (7.8-10.44); Carbon Dioxide 28 mmol/L (22-29); Chloride 100 mmol/L (98-107); Estimated GFR-MDRD 64; Glucose 97 mg/dL (70-105); Potassium 4.8 mmol/L (3.5-5.1); Sodium 135 mmol/L (136-145)
[2017-10-07] MEDS: traMADol HCl 50 MG TAB PO PRN ×2 (09:47→23:07)
--- NOTE | 2017-10-07 09:51 | PRG ---
DATE OF SERVICE: 10/07/2017 SUBJECTIVE: Patient is doing reasonably well. OBJECTIVE: VITAL SIGNS: Temperature 99.0, pulse 81, respiration 24, sat 94%, blood pressure 93/50. HEENT: Unremarkable. NECK: Trach in good position. LUNGS: Coarse rhonchi. CARDIAC: S1 and S2 regular. ABDOMEN: Soft. EXTREMITIES: No edema. LABORATORY DATA: White blood cell count 5.9, hematocrit 28.3, platelet count 120. ASSESSMENT: 1. Gastrointestinal bleeding. 2. Cirrhosis. 3. Status post trach for obstructive sleep apnea. PLAN: Probably discharged to home at any time from a pulmonary standpoint. She needs to finish a co urse of antibiotics for tracheitis. Follow up with Dr. Brown as an outpatient a couple of weeks.
[2017-10-07] MEDS ORDERED: Phytonadione 10 MG/ML AMP PO SCH (10:30)
[2017-10-07 10:55] LABS: INR-International Normal Ratio 1.7; Prothrombin Time 20.1 SEC (12.0-14.7)
[2017-10-07 16:04] LABS: Mean Corpuscular HGB CONC 31.7 g/dL (32.0-36.0); Mean Corpuscular Hemoglobin 30.1 pg (27.0-31.0); Mean Corpuscular Volume 94.9 fl (81.0-99.0); Mean Platelet Volume 8.3 fL (7.4-10.4); Platelet Count 109 thou/uL (130-400); Red Blood Cell (RBC) Count 2.99 mill/uL (4.20-5.40); White Blood Cell (WBC) Count 3.6 thou/uL (4.8-10.8)
--- NOTE | 2017-10-07 22:32 | PRG ---
DATE OF SERVICE: 10/07/2017 SUBJECTIVE: Ms. Springer had 3 bloody stools yesterday and one small blood tinged stool today. She h as had no nausea or vomiting. No further abdominal pain. OBJECTIVE: VITAL SIGNS: Temperature 98.1, pulse 86, blood pressure 197/52. GENERAL: She is in no acute distress, awake and alert. LUNGS: Clear to auscultation bilaterally. HEART: Regular rate and rhythm. ABDOMEN: Soft, nontender, nondistended, bowel sounds are present. EXTREMITIES: 1+ pitting lower extremity edema. IMPRESSION: Gastrointestinal bleed. This is in the setting of toxicity with Eliquis. Her INR remai ns elevated and she does have underlying cirrhosis; however, otherwise her liver function appears to be well compensated and I would still lean towards INR being elevated due to the medication rather th an decompensation of her cirrhosis. RECOMMENDATIONS: 1. Eliquis has been held. 2. She will remain on proton pump inhibitor. 3. There is no plan for colonoscopy at this point since her last colonoscopy in 2014 was negative ex cept for diverticulosis and repeat scope as unlikely to change house attendant. 4. If her hemoglobin remains stable and she does not have significant ongoing bleeding, then she dalila uld be ready for discharge home soon.
[2017-10-08 05:28] LABS: INR-International Normal Ratio 1.6; Prothrombin Time 19.8 SEC (12.0-14.7)
[2017-10-08 05:32] LABS: Hemoglobin 8.3 g/dL (12.0-16.0); Mean Corpuscular HGB CONC 31.7 g/dL (32.0-36.0); Mean Corpuscular Hemoglobin 30.2 pg (27.0-31.0); Mean Corpuscular Volume 95.4 fl (81.0-99.0); Mean Platelet Volume 8.3 fL (7.4-10.4); Platelet Count 107 thou/uL (130-400); RBC Distribution Width 15.8 % (11.5-14.5); Red Blood Cell (RBC) Count 2.75 mill/uL (4.20-5.40); White Blood Cell (WBC) Count 5.3 thou/uL (4.8-10.8)
[2017-10-08] MEDS: Levothyroxine Sodium 112 MCG TAB PO SCH (05:33)
--- NOTE | 2017-10-08 07:22 | PDOC.FM ---
Addendum entered and electronically signed by Amrit Hopper MD 10/08/17 11:03: Patient had 1 slightly blood streaked stool per nursing this AM also 1 BM w/o blood. This is an improvement. Original Note: - Subjective Subjective: This morning the patient complains of persistent cough. She states her cough is about the same as yesterday. Nothing seems to have made it better or worse. She thinks her sputum production is slightly decreased. - Objective Vital Signs & Weight: Vital Signs (12 hours) Temp Pulse Resp BP Pulse Ox 10/08/17 03:43 97.6 F 70 16 121/63 100 10/07/17 23:43 98.5 F 79 16 107/61 97 10/07/17 20:00 98.1 F 86 16 97/52 L 95 Weight Admit Weight 123.831 kg Weight 124.511 kg I&O: 10/07/17 10/08/17 10/09/17 06:59 06:59 06:59 Intake Total 1855 1821 Balance 1855 1821 Result Diagrams: 10/08/17 04:39 10/07/17 07:22 <Amrit Hopper - Last Filed: 10/08/17 08:52> - Objective Vital Signs & Weight: Vital Signs (12 hours) Temp Pulse Pulse Pulse Resp BP BP 10/08/17 07:53 97.9 F 86 16 10/08/17 07:44 10/08/17 07:42 86 16 10/08/17 07:15 97.9 F 67 64 69 20 101/53 L 114/61 10/08/17 03:43 97.6 F 70 16 10/07/17 23:43 98.5 F 79 16 BP Pulse Ox 10/08/17 07:53 10/08/17 07:44 99 10/08/17 07:42 10/08/17 07:15 101/53 L 97 10/08/17 03:43 121/63 100 10/07/17 23:43 107/61 97 Weight Admit Weight 123.831 kg Weight 124.511 kg I&O: 10/07/17 10/08/17 10/09/17 06:59 06:59 06:59 Intake Total 1855 1821 Balance [id number] Result Diagrams: 10/08/17 04:39 10/07/17 07:22 <Ho Villalobos - Last Filed: 10/08/17 11:22> Phys Exam - Physical Examination Constitutional: NAD HEENT: PERRLA, moist MMs Neck: no nodes, full ROM Respiratory: no wheezing mild stridor, minimal wheezes trach collar in place Cardiovascular: RRR, no significant murmur Gastrointestinal: soft, non-tender, no distention, positive bowel sounds Musculoskeletal: no edema, pulses present Neurological: non-focal, moves all 4 limbs Lymphatic: no nodes Psychiatric: normal affect, A&O x 3 Skin: no rash, cap refill <2 seconds <Amrit Hopper - Last Filed: 10/08/17 08:52> Dx/Plan (1) Abdominal pain Code(s): R10.9 - UNSPECIFIED ABDOMINAL PAIN Status: Acute QualifierTitle: Abdominal location: generalized Qualified Code(s): R10.84 - Generalized abdominal pain (2) Chronic respiratory failure Code(s): J96.10 - CHRONIC RESPIRATORY FAILURE, UNSP W HYPOXIA OR HYPERCAPNIA Status: Acute (3) Cirrhosis Code(s): K74.60 - UNSPECIFIED CIRRHOSIS OF LIVER Status: Acute QualifierTitle: Hepatic cirrhosis type: unspecified hepatic cirrhosis Ascites presence: without ascites Qualified Code(s): K74.60 - Unspecified cirrhosis of liver (4) Diabetic neuropathy Code(s): E11.40 - TYPE 2 DIABETES MELLITUS WITH DIABETIC NEUROPATHY, UNSP Status: Acute (5) Fatty liver Code(s): K76.0 - FATTY (CHANGE OF) LIVER, NOT ELSEWHERE CLASSIFIED Status: Acute (6) GERD (gastroesophageal reflux disease) Code(s): K21.9 - GASTRO-ESOPHAGEAL REFLUX DISEASE WITHOUT ESOPHAGITIS Status: Acute (7) GI (gastrointestinal bleed) Code(s): K92.2 - GASTROINTESTINAL HEMORRHAGE, UNSPECIFIED Status: Acute (8) History of tobacco abuse Code(s): Z87.891 - PERSONAL HISTORY OF NICOTINE DEPENDENCE Status: Acute (9) KATE (obstructive sleep apnea) Code(s): G47.33 - OBSTRUCTIVE SLEEP APNEA (ADULT) (PEDIATRIC) Status: Acute (10) Stasis dermatitis of both legs Code(s): I87.2 - VENOUS INSUFFICIENCY (CHRONIC) (PERIPHERAL) Status: Acute (11) COPD (chronic obstructive pulmonary disease) Status: Chronic (12) Chronic anemia Code(s): D64.9 - ANEMIA, UNSPECIFIED Status: Chronic (13) Diastolic CHF Code(s): I50.30 - UNSPECIFIED DIASTOLIC (CONGESTIVE) HEART FAILURE Status: Chronic (14) Hyperlipemia Code(s): E78.5 - HYPERLIPIDEMIA, UNSPECIFIED Status: Chronic QualifierTitle: Hyperlipidemia type: mixed hyperlipidemia Qualified Code( s): E78.2 - Mixed hyperlipidemia (15) Hypertension Code(s): I10 - ESSENTIAL (PRIMARY) HYPERTENSION Status: Chronic QualifierTitle: Hypertension type: essential hypertension Qualified Code( s): I10 - Essential (primary) hypertension (16) Obesity, morbid Code(s): E66.01 - MORBID (SEVERE) OBESITY DUE TO EXCESS CALORIES Status: Chronic (17) Type 2 diabetes mellitus Status: Chronic QualifierTitle: Diabetes mellitus complication status: with skin complications Diabetes mellitus complication detail: with other skin ulcer Diabetes mellitus terminal operator insulin use: unspecified terminal operator insulin use status Qualified Code(s): E11.622 - Type 2 diabetes mellitus with other skin ulcer; L98.499 - Non-pressure chronic ulcer of skin of other sites with unspecified severity; L98.499 - Non-pressure chronic ulcer of skin of other sites with unspecified severity; L98.499 - Non-pressure chronic ulcer of skin of other sites with unspecified severity; L98.499 - Non-pressure chronic ulcer of skin of other sites with unspecified severity - Plan Plan: This is a chronically ill 62 yo F admitted for evaluation of GI bleed. # GI bleed - dark red blood per rectum, no hemorrhoids on rectal exam - Hgb 8.3 about her baseline - Episode of hypotension after BM in ER, likely vasovagal, monitor - last eliquis around 10am 10/05, held - Will trend PT/INR, CBC - Pt reports no BM today, will watch for resolution - CHADs-VASC score shows 9.8% risk of thrombus, HAS-BLED shows 12.5% risk of bleed, will hold anticoagulation for now - long discussion with patient, will re-discuss on rounds to form decision along with patient - INR 2.4 -> 2.0 -> 1.7-> 1.6 , gave Vit K PO 5 mg 8 - Ammonia 48 - GI consulted, likely coagulopathy 2/2 eliquis as opposed to lesion requiring scope, - 3 carias red BMs 10/06, 1 on 10/07 # COPD, possible exacerbation - levoquin, prednisone, duonebs - patient reports increased production - Blood culture 1 of 2 positive for skin roberth # Tracheitis - Proteus, MSSA both Resistant to levofloxacin - anticipate antibiotic change, will defer to ID who is consulted, appreciate recs # UTI- ESBL E. Coli - asymptomatic - Urine culture in August 2017 not ESBL e. coli - Urine culture 10/04/17 ESBL e. coli - Consulted ID, recs appreciated # MALISSA - trend Cr - decreased clearance could contribute to eliquis coagulopathy # KATE - CPAP at night # Cirrhosis - dose meds appropriately # DM - Sliding scale - accuchecks q6hrs # GERD - protonix # Wounds - wound care consulted - RLE venous stasis - raw skin around trach collar # Chronic anemia - trend CBC # CHF - clinically does not appear overloaded - monitor and diuresis as necessary - f/u on CXR # Paroxysmal A. fib - hold anticoagulant for now # Code status - full code - on hospice at home # PPx - SCDs - Eliquis, aspirin held Dispo: possibly home tomorrow pending bloody BMs, ID recs <Amrit Hopper - Last Filed: 10/08/17 08:52> Attending Addendum - Attending Addendum Date/Time: 10/08/17 1120 I personally evaluated the patient and discussed the management with Dr. Hopper. I agree with the History, Examination, Assessment and Plan documented above with any addition or exceptions noted below. GI bleed remains but appeas to be improving. May require another blood tansfusion of cbc continues to trend downward. Appreciate Dr Crain recommendations for lung infection. I am not convinced she has a urine infection. Her urine culture was not a cath specimen. She does not have urinary symptoms. <Ho Villalobos - Last Filed: 10/08/17 11:22>
[2017-10-08] MEDS: Ferrous Sulfate 325 MG TAB PO SCH ×2 (08:36→16:50)
[2017-10-08] MEDS: predniSONE 20 MG TAB PO SCH (08:36)
[2017-10-08] MEDS: Pantoprazole 40 MG GRANULES PACKET PO SCH ×2 (08:36→20:09)
[2017-10-08] MEDS: buPROPion HCl 100 MG TAB PO SCH ×2 (08:36→20:10)
--- NOTE | 2017-10-08 08:57 | PRG ---
DATE OF SERVICE: 10/08/2017 The patient is doing better, had no complaints. PHYSICAL EXAMINATION: VITAL SIGNS: Temperature is 97.9, pulse 86, respirations 16, blood pressure 114/61. HEENT: Unremarkable. NECK: Trach site appears to be clean. CARDIAC: S1 and S2 regular. ABDOMEN: Soft. LUNGS: Clear. EXTREMITIES: No edema. LABORATORY DATA: White blood cell count 5.3, hematocrit 26.3, platelet count 107. ASSESSMENT: 1. Status post gastrointestinal bleeding. 2. Tracheal colonization with multiple organisms one of which is methicillin-resistant Staphylococcu s aureus. RECOMMENDATIONS: She is probably ready for discharge. Would agree with ID consultation for antibiot ic recommendations regarding the multiple resistant organisms this patient seems to carry. Because o f minimal trach secretions I think we could probably defer on treating the tracheal colonization, but I will leave that up to Dr. Crain.
--- NOTE | 2017-10-08 12:31 | CON ---
DATE OF CONSULTATION: 10/08/2017 REASON FOR CONSULTATION: Urinary tract findings. HISTORY OF PRESENT ILLNESS: A 62-year-old patient known to me from prior visit in 08/2016 and 7 with a history of morbid obesity, chronic smoking, type 2 diabetes and COPD as well as lymphedema o f lower extremities with recurrent episodes of cellulitis whom I saw in July with abdominal pain associated with nausea and right hip pain. The patient had evidence of advanced liver disease, proba sophie from the steatohepatitis. She was identified with cellulitis and discharged on oral antimicrobia l therapy. In August, she was admitted for management of the respiratory insufficiency. The initia l impression was acute hypoxic respiratory failure, diastolic heart failure, hypercapnic respiratory failure as well as morbid obesity. The patient underwent tracheostomy and left subclavian central li ne and had a post-procedure pneumothorax, which was managed with a small-bore chest catheter. This h ad to be replaced by a large-bore chest tube later on. The patient had a nuclear stress test, which showed a small region of fixed defect, anteroseptal aspect of the apex, probably a scar. After stabi lization, disposition was difficult because of insurance issues and numerous institutions declined ac cepting patient and basically she was transferred to home with home health assistance. The patient w as readmitted just a few days ago with a complaint of bright red blood per rectum. The patient had b een admitted to home health hospice care. The initial findings included a BP of 117/53, heart rate 8 2, respiratory rate 20, T-max 98 and O2 saturation 100% on 3 liters. She was awake and oriented. He art and lung examination remarkable for mild wheezing. Abdomen was soft and nontender. No bladder d istention. No skin lesions noted. Gastroenterology evaluated the patient and felt that she did not need an endoscopy since she had one fairly recently and had stopped bleeding. As part of the evaluat ion, the patient is at number of tests including a CBC, which showed a WBC ranging from 3-6.1 with a normal differential. Urinalysis with 11-20 wbc's, 21-50 rbc's and negative protein. Chest x-ray wit h focal opacity at the left lung base. She had a speech modified barium swallow evaluation, which de monstrated some penetration with thin liquid by spoon. Currently, Ms. Springer is awake. She has mil d to moderate discomfort at the tracheostomy site. Otherwise, no headaches, no visual symptoms, sore throat, odynophagia or dysphagia. No chest pain. No abdominal pain or diarrhea. Denies any dysuri a. No urinary frequency. No joint symptoms. PAST MEDICAL HISTORY: Morbid obesity, lymphedema with cellulitis, obstructive sleep apnea, hypoventi lation syndrome, steatohepatitis with liver cirrhosis, chronic smoking and episodes of respiratory fa ilure. PAST SURGICAL HISTORY: Includes recent tracheostomy; a central line associated pneumothorax, which r equired chest tube placement recently and other surgical procedures include , cholecystectom y and tonsillectomy. ALLERGIES: PENICILLIN with rash. CURRENT MEDICATIONS: Include DuoNeb, Wellbutrin, dextrose, Feosol, glucagon, Robitussin, insulin, Le vaquin, Synthroid, Zofran, prednisone 40 mg and tramadol. SOCIAL HISTORY: She is a chronic smoker, had been until this admission. She is still living at home and has home hospice assistance. FAMILY HISTORY: Noncontributory except for diabetes. PHYSICAL EXAMINATION: VITAL SIGNS: T-max 98.5, current 97.9. Blood pressure 101/53, pulse 86, respirations 16 and O2 satu ration 99%. GENERAL: Appears in no distress. Tracheostomy in place. Normal appearance. Peripheral IV access. Does not have a Magana catheter. No lymphadenopathy. HEENT: Ocular movements are conjugate. Pupils are equal and reactive. Oral cavity is somewhat dry. Numerous teeth in place with quite a bit of decay and gum disease. NECK: Supple, jugular vein distention. LUNGS: With symmetric clear breath sounds, faint inspiratory crackles at the bases. CARDIOVASCULAR: S1 and S2, regular rate. No S3 or S4. ABDOMEN: Soft, flat and not distended. No evidence of bladder distention noted. No perineal abnorm alities. EXTREMITIES: Some osteoarthrosis in knees and ankles. Pulses 1+ in dorsalis pedis. She is able to move the feet and hands on command. She is diffusely weak. NEUROLOGIC: Awake, oriented and follows commands. LABORATORY DATA: The labs have been reviewed above. Microbiology with Proteus mirabilis and MRSA fr om tracheal aspirate. Urine voided with E. coli and beta-hemolytic Streptococcus. The E. coli has a n ESBL phenotype and has more than 100,000 CFUs per mL ASSESSMENT: 1. Obesity with hypoventilation syndrome and status post tracheostomy, recently. 2. Admission for rectal bleeding, which was managed conservatively. 3. Urinary tract abnormalities noted. DISCUSSION: The findings in the urinary tract reflect colonization of the area. It could also be a contaminant of the sample. The elements in the urine culture include a number of organisms, which re flect normal skin roberth, so the E. coli could be seeding in the perineum and we have not been retriev ed from that site or be a part of the bladder urine colonization. There is no evidence of invasive f eatures at this time. If normal post-void residuals are verified, then I would recommend management without antimicrobial therapy. She will be at risk for more invasive processes in the future. Thing s to monitor for would include dysuria, frequency, gastrointestinal symptoms, fever, leukocytosis and so on.
[2017-10-08 13:36] VITALS: BMI 48.6
--- NOTE | 2017-10-08 15:34 | PRG ---
DATE OF SERVICE: 10/08/2017 SUBJECTIVE: Ms. Springer had a small brown stool late this morning and reportedly reddish stool earli er this morning. She has had no abdominal pain. OBJECTIVE: VITAL SIGNS: Temperature 97.7, pulse 89, blood pressure 114/61. GENERAL: She is in no acute distress. She is awake and alert. LUNGS: Clear to auscultation bilaterally. HEART: Regular rate and rhythm. ABDOMEN: Soft, nontender, nondistended, bowel sounds present. EXTREMITIES: 1+ pitting lower extremity edema. IMPRESSION: 1. Gastrointestinal bleed. Her hemoglobin has been hovering around 8-9. Hemoglobin is 8.3 today. Her INR is down to 1.6. Eliquis has been held for several days now. She does have a history of cirr hosis and has been given vitamin K. 2. Cirrhosis, which appears to be otherwise compensated; however, INR has been slow to correct. RECOMMENDATIONS: 1. Supportive care regarding the bleeding. She had a colonoscopy 3 years ago, which was negative ex cept for diverticulosis. The bleeding may be hemorrhoidal. There is no plan for endoscopy at this p nt. 2. I will sign off for now. Please call if GI can be of assistance. Dr. Juarez will be covering the weekend, please call him if needed.
[2017-10-08 17:32] LABS: Hemoglobin 9.1 g/dL (12.0-16.0); Mean Corpuscular Hemoglobin 30.6 pg (27.0-31.0); Mean Corpuscular Volume 95.5 fl (81.0-99.0); Mean Platelet Volume 8.4 fL (7.4-10.4); Platelet Count 128 thou/uL (130-400); Red Blood Cell (RBC) Count 2.98 mill/uL (4.20-5.40); White Blood Cell (WBC) Count 4.6 thou/uL (4.8-10.8)
[2017-10-08] MEDS ORDERED: Acetaminophen 500 MG TAB PO PRN (22:15)
[2017-10-08] MEDS: Guaifenesin DM 100-10/5 ML UDCUP PO PRN (22:28)
[2017-10-09] MEDS: Levothyroxine Sodium 112 MCG TAB PO SCH (05:40)
[2017-10-09 06:31] LABS: INR-International Normal Ratio 1.6; Prothrombin Time 19.7 SEC (12.0-14.7)
[2017-10-09 06:33] LABS: Hemoglobin 8.3 g/dL (12.0-16.0); Mean Corpuscular HGB CONC 31.5 g/dL (32.0-36.0); Mean Corpuscular Hemoglobin 30.3 pg (27.0-31.0); Mean Corpuscular Volume 96.1 fl (81.0-99.0); Mean Platelet Volume 8.8 fL (7.4-10.4); Platelet Count 104 thou/uL (130-400); RBC Distribution Width 15.9 % (11.5-14.5); Red Blood Cell (RBC) Count 2.74 mill/uL (4.20-5.40); White Blood Cell (WBC) Count 5.9 thou/uL (4.8-10.8)
--- NOTE | 2017-10-09 07:08 | PDOC.FM ---
- Subjective Subjective: This morning ms. Springer is complaining of increased cough and shortness of breath. She was afebrile overnight and maintained good O2 saturations. Yesterday she had 1 dark stool per nursing and is having mild rust colored streaks when wiping. Pulm and GI are in agreement that she is ready to return home from their standpoints. Infectious Disease saw the patient yesterday and stated that the urine culture does not warrant treatment as it good likely be perineal roberth and patient is not having any symptoms. - Objective Vital Signs & Weight: Vital Signs (12 hours) Temp Pulse Resp BP Pulse Ox 10/09/17 00:00 98.7 F 83 18 110/65 97 10/08/17 20:10 98.6 F 77 20 97 10/08/17 19:16 98 10/08/17 19:15 98 Weight Admit Weight 123.831 kg Weight 124.511 kg I&O: 10/08/17 10/09/17 10/10/17 06:59 06:59 07:59 Intake Total 1822 1886 Output Total 150 Balance 1822 1736 Result Diagrams: 10/09/17 05:20 10/07/17 07:22 <Amrit Hopper - Last Filed: 10/09/17 07:05> - Objective Vital Signs & Weight: Vital Signs (12 hours) Temp Pulse Resp BP Pulse Ox 10/09/17 08:00 96.5 F L 74 22 H 98 10/09/17 07:54 97 10/09/17 07:52 84 16 98 10/09/17 07:15 96.5 F L 74 22 H 109/65 98 10/09/17 00:00 98.7 F 83 18 110/65 97 Weight Admit Weight 123.831 kg Weight 124.511 kg I&O: 10/08/17 10/09/17 10/10/17 06:59 06:59 07:59 Intake Total 1822 1886 Output Total 150 Balance 1822 1736 Result Diagrams: 10/09/17 05:20 10/07/17 07:22 <Ho Villalobos - Last Filed: 10/09/17 11:38> Phys Exam - Physical Examination Constitutional: NAD HEENT: PERRLA, moist MMs Neck: no nodes, full ROM mild wheezes throughout, some stridor from upper airway mucous trach dressed, mild production from trach collar Cardiovascular: RRR, no significant murmur Gastrointestinal: soft, non-tender, no distention, positive bowel sounds Musculoskeletal: no edema, pulses present Neurological: non-focal, moves all 4 limbs Lymphatic: no nodes Psychiatric: normal affect, A&O x 3 Skin: no rash, cap refill <2 seconds <Amrit Hopper - Last Filed: 10/09/17 07:05> Dx/Plan (1) Abdominal pain Code(s): R10.9 - UNSPECIFIED ABDOMINAL PAIN Status: Acute QualifierTitle: Abdominal location: generalized Qualified Code(s): R10.84 - Generalized abdominal pain (2) Chronic respiratory failure Code(s): J96.10 - CHRONIC RESPIRATORY FAILURE, UNSP W HYPOXIA OR HYPERCAPNIA Status: Acute (3) Cirrhosis Code(s): K74.60 - UNSPECIFIED CIRRHOSIS OF LIVER Status: Acute QualifierTitle: Hepatic cirrhosis type: unspecified hepatic cirrhosis Ascites presence: without ascites Qualified Code(s): K74.60 - Unspecified cirrhosis of liver (4) Diabetic neuropathy Code(s): E11.40 - TYPE 2 DIABETES MELLITUS WITH DIABETIC NEUROPATHY, UNSP Status: Acute (5) Fatty liver Code(s): K76.0 - FATTY (CHANGE OF) LIVER, NOT ELSEWHERE CLASSIFIED Status: Acute (6) GERD (gastroesophageal reflux disease) Code(s): K21.9 - GASTRO-ESOPHAGEAL REFLUX DISEASE WITHOUT ESOPHAGITIS Status: Acute (7) GI (gastrointestinal bleed) Code(s): K92.2 - GASTROINTESTINAL HEMORRHAGE, UNSPECIFIED Status: Acute (8) History of tobacco abuse Code(s): Z87.891 - PERSONAL HISTORY OF NICOTINE DEPENDENCE Status: Acute (9) KATE (obstructive sleep apnea) Code(s): G47.33 - OBSTRUCTIVE SLEEP APNEA (ADULT) (PEDIATRIC) Status: Acute (10) Stasis dermatitis of both legs Code(s): I87.2 - VENOUS INSUFFICIENCY (CHRONIC) (PERIPHERAL) Status: Acute (11) COPD (chronic obstructive pulmonary disease) Status: Chronic (12) Chronic anemia Code(s): D64.9 - ANEMIA, UNSPECIFIED Status: Chronic (13) Diastolic CHF Code(s): I50.30 - UNSPECIFIED DIASTOLIC (CONGESTIVE) HEART FAILURE Status: Chronic (14) Hyperlipemia Code(s): E78.5 - HYPERLIPIDEMIA, UNSPECIFIED Status: Chronic QualifierTitle: Hyperlipidemia type: mixed hyperlipidemia Qualified Code( s): E78.2 - Mixed hyperlipidemia (15) Hypertension Code(s): I10 - ESSENTIAL (PRIMARY) HYPERTENSION Status: Chronic QualifierTitle: Hypertension type: essential hypertension Qualified Code( s): I10 - Essential (primary) hypertension (16) Obesity, morbid Code(s): E66.01 - MORBID (SEVERE) OBESITY DUE TO EXCESS CALORIES Status: Chronic (17) Type 2 diabetes mellitus Status: Chronic QualifierTitle: Diabetes mellitus complication status: with skin complications Diabetes mellitus complication detail: with other skin ulcer Diabetes mellitus chcf insulin use: unspecified terminal computer operator insulin use status Qualified Code(s): E11.622 - Type 2 diabetes mellitus with other skin ulcer; L98.499 - Non-pressure chronic ulcer of skin of other sites with unspecified severity; L98.499 - Non-pressure chronic ulcer of skin of other sites with unspecified severity; L98.499 - Non-pressure chronic ulcer of skin of other sites with unspecified severity; L98.499 - Non-pressure chronic ulcer of skin of other sites with unspecified severity - Plan Plan: This is a chronically ill 62 yo F admitted for evaluation of GI bleed. # GI bleed - dark red blood per rectum, no hemorrhoids on rectal exam - Hgb 8.3 about her baseline - Episode of hypotension after BM in ER, likely vasovagal, monitor - last eliquis around 10am 10/05, held - Will trend PT/INR, CBC - Pt reports no BM today, will watch for resolution - CHADs-VASC score shows 9.8% risk of thrombus, HAS-BLED shows 12.5% risk of bleed, will hold anticoagulation for now - long discussion with patient, will re-discuss on rounds to form decision along with patient - INR 2.4 -> 2.0 -> 1.7-> 1.6 -> 1.6, gave Vit K PO 5 mg 10/07 - Ammonia 48 - GI signed off - 3 carias red BMs 10/06, 1 on 10/07, 1 dark stool 10/08 # COPD, possible exacerbation - levoquin, prednisone, duonebs - patient reports increased production - Blood culture 1 of 2 positive for skin roberth - will adjust home med antibiotics according to culture # Tracheitis - Proteus, MSSA both Resistant to levofloxacin - ID seen and evaluated, no abx changed rec'd # UTI- ESBL E. Coli - asymptomatic - Urine culture in August 2017 not ESBL e. coli - Urine culture 10/04/17 ESBL e. coli - ID consulted, does not warrant treatment, recs appreciated # MALISSA - trend Cr - decreased clearance could contribute to eliquis coagulopathy # KATE - CPAP at night # Cirrhosis - dose meds appropriately # DM - Sliding scale - accuchecks q6hrs # GERD - protonix # Wounds - wound care consulted - RLE venous stasis - raw skin around trach collar # Chronic anemia - trend CBC # CHF - clinically does not appear overloaded - monitor and diuresis as necessary - f/u on CXR # Paroxysmal A. fib - hold anticoagulant for now # Code status - full code - on hospice at home # PPx - SCDs - Eliquis, aspirin held Dispo: home today <Amrit Hopper - Last Filed: 10/09/17 07:05> Attending Addendum - Attending Addendum Date/Time: 10/09/17 1133 I personally evaluated the patient and discussed the management with Dr. Hopper. I agree with the History, Examination, Assessment and Plan documented above with any addition or exceptions noted below. Patient is stable for discharge wt follow up appt in our [facility] in 2-3 days. <Ho Villalobos - Last Filed: 10/09/17 11:38>
[2017-10-09] MEDS: buPROPion HCl 100 MG TAB PO SCH (07:53)
[2017-10-09] MEDS: Pantoprazole 40 MG GRANULES PACKET PO SCH (07:53)
[2017-10-09] MEDS: Ferrous Sulfate 325 MG TAB PO SCH (07:53)
[2017-10-09] MEDS: predniSONE 20 MG TAB PO SCH (07:54)
[2017-10-09] MEDS: Guaifenesin DM 100-10/5 ML UDCUP PO PRN (09:15)
--- NOTE | 2017-10-09 10:34 | RAD ---
PORTABLE CHEST: Date: 10/09/17 HISTORY: Shortness of breath. COMPARISON: 10/04/17. FINDINGS: Heart size is borderline for portable technique. Linear changes in the left lung are similar to the p rior exam. Tracheostomy tube remains in satisfactory position. IMPRESSION: Stable chest. POS: [facility]
--- NOTE | 2017-10-09 11:46 | DIS-2 ---
DATE OF ADMISSION: 10/04/2017 DATE OF DISCHARGE: 10/09/2017 RESIDENT: Amrit Hopper M.D. ADMITTING ATTENDING: Madyson Verdugo D.O. DISCHARGE ATTENDING: Ho Villalobos M.D. CONSULTATIONS: Pulmonology, Dr. Connor, Gastroenterology, Dr. Lucia, Infectious Disease, Dr. Crain. PROCEDURES: None. ADMISSION DIAGNOSIS: Gastrointestinal bleed. DISCHARGE DIAGNOSES: Gastrointestinal bleed secondary to Eliquis toxicity. DISCHARGE MEDICATIONS: Aspirin 81 mg, Robitussin, tramadol 50 mg q.12 h. p.r.n. for 5 days, bupropion 100 mg p.o. b.i.d., iron 325 mg p.o. b.i.d., Synthroid 112 mcg p.o. daily, Lasix 40 mg p.o. daily, Atrovent, Protonix 40 mg p.o. daily, potassium 20 mEq p.o. daily. HISTORY OF PRESENT ILLNESS AND HOSPITAL COURSE: This chronically ill 62-year- old female with trach collar [facility] with chief complaint of bright red blood per rectum. Her PMH includes diabetes, COPD, obstructive sleep apnea, hypertension, venous stasis, hyperlipidemia, CHF, and cholecystectomy. Patient stated that she had 3 days of bright red blood per rectum progressively worse until today. She also had 3 days of worsening abdominal pain, was worsened by eating. The pain came in and went randomly. Nothing made it better. She had two bowel movements that were both gross bloody. She said that she had had nausea and vomiting for 3 days. She has also had progressively more shortness of breath for the 3 days prior to presentation to the ED. She denied fever, chills or sweats. The patient was seen and evaluated by Gastroenterology who suspected that this was GI bleed secondary to Eliquis toxicity. The patient's INR on presentation was 2.4, she is not on Coumadin. This can be a side effect of Eliquis, especially in cirrhosis. The shared decision was made with the patient at time of discharge to not continue Eliquis. The risks of not being on Eliquis with her history of paroxysmal atrial fibrillation were discussed including stroke, PE, and DVTs. The patient elected to discontinue the Eliquis secondary to the high risks of continued GI bleeds or other bleeding. The patient was also evaluated by Pulmonology for COPD exacerbation. The patient received a 5-day course of prednisone and Levaquin while in the hospital. Her breathing and O2 sats throughout the stay improved. The patient was also seen and evaluated by Dr. Crain secondary to urine culture for ESBL E. coli. The culture was from a clean catch and Dr. Crain deemed that not needing treatment. She also had MRSA grow out of her trach collar as well as Proteus. Dr. Crain said that these were colonization that do not warrant further treatment. Blood culture was positive 1/2 for skin roberth and thus not needing any treatment for that. The patient is discharged to home health hospice. Had lengthy discussion regarding code status with the patient. The patient is determined "to live as long as possible" and is not interested in shifting goals of care to comfort at this time although she said she will take this into consideration. Patient is quite anxious about the future, she responded well to discussing making the most of today as opposed to worrying about tomorrow. Please f/u on this conversation. DISPOSITION: Stable. DISCHARGE INSTRUCTIONS: 1. Location: Home. 2. Diet: Heart healthy. 3. Activity: As tolerated. 4. Followup: PCP was with [facility] in 3 days. Please evaluate for bleeding risks and revisit conversation on anticoagulation secondary to her atrial fibrillation. Please re-visit discussion on goals of care. JLUIS
[2017-10-09 12:55] VITALS: BP 101/59; TEMP 96
== END 2017-10-09 13:08 | disposition home health service (06) | DRG 813 ==
LOC: ERS 10:46 → IMCU/EMU 14:10 → ONC 10-06 07:39
PROVIDERS: ADMIT Family Medicine; ATTEND Family Medicine
PROC: 30233N1 Transfusion of Nonautologous Red Blood Cells into Peripheral Vein, Percutaneous Approach (ICD-10-PCS; principal; 2017-10-06)
DX: D68.32 Hemorrhagic disorder due to extrinsic circulating anticoagulants (principal); J96.11 Chronic respiratory failure with hypoxia; N17.9 Acute kidney failure, unspecified; Z93.0 Tracheostomy status; E11.42 Type 2 diabetes mellitus with diabetic polyneuropathy; D62 Acute posthemorrhagic anemia; E11.622 Type 2 diabetes mellitus with other skin ulcer; I50.32 Chronic diastolic (congestive) heart failure; Z68.42 Body mass index [BMI] 45.0-49.9, adult; K92.1 Melena; E66.01 Morbid (severe) obesity due to excess calories; I11.0 Hypertensive heart disease with heart failure; K74.60 Unspecified cirrhosis of liver; K57.90 Diverticulosis of intestine, part unspecified, without perforation or abscess without bleeding; Z79.01 Long term (current) use of anticoagulants; T45.515A Adverse effect of anticoagulants, initial encounter; G47.33 Obstructive sleep apnea (adult) (pediatric); J44.9 Chronic obstructive pulmonary disease, unspecified; I87.8 Other specified disorders of veins; I48.0 Paroxysmal atrial fibrillation; F17.210 Nicotine dependence, cigarettes, uncomplicated; Z88.0 Allergy status to penicillin; Z79.4 Long term (current) use of insulin; K21.9 Gastro-esophageal reflux disease without esophagitis; E78.2 Mixed hyperlipidemia; L98.499 Non-pressure chronic ulcer of skin of other sites with unspecified severity; E03.9 Hypothyroidism, unspecified
CPT/HCPCS: 36415; 36416; 36430; 71045; 74177; 74230; 80048; 80053; 81003; 81015; 82105; 82140; 85025; 85027; 85610; 85730; 86850; 86900; 86901; 87040; 87070; 87077; 87086; 87149; 87186; 87205; 89220; 94640; 96361; 96374; A4216; C9113; G8978-GP-CM; G8979-GP-CL; G8987-GO-CL; G8988-GO-CJ; G8996-GN-CM; G8997-GN-CL; G9171-GN-CN; G9172-GN-CM; J1815; J1940; J3430; J7506; J7620; P9016

== ENCOUNTER 2017-10-23 07:57 | Emergency (ER) | payer OTHER ==
[2017-10-23 08:27] LABS: #Basophils 0.1 thou/uL (0.0-0.2); #Eosinphils 0.1 thou/uL (0.0-0.7); #Lymphocytes 2.5 thou/uL (1.20-3.40); #Monocytes 0.7 thou/uL (0.11-0.59); #Neutrophils 2.4 thou/uL (1.40-6.50); %Basophils 1.4 % (0.0-1.0); %Eosinophils 2.2 % (0.0-10.0); %Lymphocytes 43.6 % (21.0-51.0); %Monocytes 11.3 % (0.0-10.0); %Neutrophils 41.5 % (42.0-75.0); Hemoglobin 9.6 g/dL (12.0-16.0); Mean Corpuscular HGB CONC 31.5 g/dL (32.0-36.0); Mean Corpuscular Hemoglobin 29.3 pg (27.0-31.0); Mean Platelet Volume 8.6 fL (7.4-10.4); Platelet Count 139 thou/uL (130-400); RBC Distribution Width 16.9 % (11.5-14.5); Red Blood Cell (RBC) Count 3.29 mill/uL (4.20-5.40); White Blood Cell (WBC) Count 5.7 thou/uL (4.8-10.8)
[2017-10-23 08:41] LABS: ALT (SGPT) 16 U/L (8-55); AST (SGOT) 36 U/L (5-34); Albumin 2.9 g/dL (3.5-5.0); Alkaline Phosphatase 124 U/L (40-150); Anion Gap 14 mmol/L (10-20); BUN (Urea Nitrogen) 14 mg/dL (9.8-20.1); Bilirubin, Total 1.5 mg/dL (0.2-1.2); CK (CPK) 109 U/L (29-168); Calc. Creatinine Clearance 0 mL/min (70-130); Calcium 9.2 mg/dL (7.8-10.44); Carbon Dioxide 25 mmol/L (22-29); Chloride 101 mmol/L (98-107); Estimated GFR-MDRD 45; Glucose 84 mg/dL (70-105); Lipase 14 U/L (8-78); Potassium 3.7 mmol/L (3.5-5.1); Protein, Total 7.9 g/dL (6.0-8.3); Sodium 136 mmol/L (136-145)
[2017-10-23 08:43] LABS: CKMB 2.2 ng/mL (0-6.6)
--- NOTE | 2017-10-23 08:44 | RAD ---
CHEST 1 VIEW: Date: 10/23/17 COMPARISON: 10/09/17. HISTORY: Bleeding from trach. Dizziness. FINDINGS: Tracheostomy is redemonstrated, unchanged. Normal cardiac silhouette. Pulmonary vessels are slightly prominent. Patchy interstitial opacities, without consolidation or mass. Lung volumes are slightly di minished. No pneumothorax or osseous abnormalities. IMPRESSION: Mild pulmonary vascular prominence. Patchy interstitial opacities. Correlate for infiltrate. POS: [facility]
[2017-10-23 09:25] LABS: INR-International Normal Ratio 1.4; PTT 35.9 SEC (22.9-36.1); Prothrombin Time 17.8 SEC (12.0-14.7)
[2017-10-23] MEDS ORDERED: Water For Inject, Bacteriostat 30 ML ONE (09:32)
[2017-10-23] MEDS ORDERED: methylPREDNISolone Sod Succ/PF 125 MG/2 ML VIAL ONE (09:32)
[2017-10-23] MEDS ORDERED: Azithromycin 500 MG VIAL ONE (09:32)
[2017-10-23 10:28] LABS: Base Excess-Venous 1.4 mmol/L (0 (+/- 2.5)); Bicarbonate (HCO3v) 25.7 mmol/L (1.0-85.0); CO2 Tension (PvCO2) 38.5 mmHg (41.0-51.0); Calcium, Ionized 1.07 mmol/L (1.12-1.32); Hemoglobin - Calc 10.6 g/dL (12.0-18.0); O2 Tension (PvO2) 40.1 mmHg (35.0-45.0); Potassium 3.6 mmol/L (3.4-4.7); T. Carbon Dioxide 26.9 mmol/L (1.0-85.0); pH (Venous) 7.432 (7.35-7.45); vO2 Saturation-calc 76.8 % (94-98)
[2017-10-23] MEDS ORDERED: Acetaminophen 325 MG/10.15 ML UDCUP ONE (10:33)
--- NOTE | 2017-10-23 10:48 | PDOC.FPRHP ---
- History of Present Illness ED Course: steroids, duonebs, levoquin, azithromycin, on 4L o2 - Allergies/Adverse Reactions Allergies Allergy/AdvReac Type Severity Reaction Status Date / Time Penicillins Allergy Intermediate Rash Verified 08/01/17 17:31 amoxicillin [Amoxicillin] Allergy Verified 08/01/17 17:31 - Home Medications Medication Instructions Recorded Confirmed Type Pantoprazole [Protonix] 40 mg PO Q24HR #30 tab 02/02/17 10/04/17 Rx Ferrous Sulfate [Feosol] 325 mg PO BID-WM #60 tab 05/20/17 10/04/17 Rx Levothyroxine Sodium 112 mcg PO DAILY 06/20/17 10/04/17 History Potassium Chloride [K-Dur] 20 meq PO DAILY 06/20/17 10/04/17 History Furosemide [Lasix] 40 mg PO DAILY-AC #30 tab 06/23/17 10/04/17 Rx Ipratropium [place] [Atrovent] 2.5 ml NEB Q2HR #1 box 09/01/17 10/04/17 Rx buPROPion HCl [Wellbutrin] 100 mg PO BID 10/04/17 10/04/17 History Guaifenesin DM 100-10 [Robitussin 15 ml PO Q4H PRN 5 Days #1 ml 10/06/17 Rx DM] traMADol HCl [Ultram] 50 mg PO Q12H PRN 5 Days #10 tab 10/06/17 Rx Aspirin [Adult Aspirin Regimen] 81 mg PO DAILY 30 Days #30 10/09/17 Rx tablet.dr - History PMHx: DM, COPD, Anemia, KATE, hypothyroidism, HTN, venous stasis ulcers, HLD, CHF PSHx: Cholecystectomy FHx: non-contributory Social: hx of tobacco use, denies alcohol/drug use - Review of Systems General: reports: fever/chills, fatigue. denies: weight/appetite/sleep changes Eyes: denies: vision changes ENT: denies: nasal congestion, rhinorrhea Respiratory: reports: cough, congestion, shortness of breath Cardiovascular: reports: edema. denies: chest pain, palpitation Gastrointestinal: denies: nausea, vomiting, diarrhea, constipation, abdominal pain, GI bleeding Genitourinary: denies: dysuria, polyuria Skin: reports: other (bleeding around trach tube when cleaned yesterday, now resolved). denies: rashes, itching Musculoskeletal: denies: pain, arthritis/arthralgias Neurological: denies: numbness, weakness Psychological: denies: anxiety, depression - Vital signs BP: [] HR: [] RR: [] Tmax: [] Pox: []% on [] Wt: [] FMR H&P: Results - Labs Result Diagrams: 10/23/17 08:22 10/23/17 08:06 Lab results: WBC 5.7 thou/uL (4.8-10.8) 10/23/17 08:22 Hgb 9.6 g/dL (12.0-16.0) L 10/23/17 08:22 Hct 30.6 % (36.0-47.0) L 10/23/17 08:22 MCV 93.0 fl (81.0-99.0) 10/23/17 08:22 Plt Count 139 thou/uL (130-400) 10/23/17 08:22 Neutrophils % 41.5 % (42.0-75.0) L 10/23/17 08:22 VBG pCO2 38.5 mmHg (41.0-51.0) L 10/23/17 10:26 VBG pO2 40.1 mmHg (35.0-45.0) 10/23/17 10:26 Sodium 136 mmol/L (136-145) 10/23/17 08:06 Potassium 3.7 mmol/L (3.5-5.1) 10/23/17 08:06 Chloride 101 mmol/L (98-107) 10/23/17 08:06 Carbon Dioxide 25 mmol/L (22-29) 10/23/17 08:06 BUN 14 mg/dL (9.8-20.1) 10/23/17 08:06 Creatinine 1.22 mg/dL (0.6-1.1) H 10/23/17 08:06 Glucose 84 mg/dL (70-105) 10/23/17 08:06 Calcium 9.2 mg/dL (7.8-10.44) 10/23/17 08:06 Total Bilirubin 1.5 mg/dL (0.2-1.2) H 10/23/17 08:06 AST 36 U/L (5-34) H 10/23/17 08:06 ALT 16 U/L (8-55) 10/23/17 08:06 Alkaline Phosphatase 124 U/L (40-150) 10/23/17 08:06 Creatine Kinase 109 U/L (29-168) 10/23/17 08:06 CK-MB (CK-2) 2.2 ng/mL (0-6.6) 10/23/17 08:06 Serum Total Protein 7.9 g/dL (6.0-8.3) 10/23/17 08:06 Albumin 2.9 g/dL (3.5-5.0) L 10/23/17 08:06 Lipase 14 U/L (8-78) 10/23/17 08:06 FMR H&P: A/P - Plan # COPD, possible exacerbation - levoquin, prednisone, duonebs - patient reports increased production - Blood culture 1 of 2 positive for skin roberth - will adjust home med antibiotics according to culture # Tracheitis - Proteus, MSSA both Resistant to levofloxacin - ID seen and evaluated, no abx changed rec'd # UTI- ESBL E. Coli - asymptomatic - Urine culture in August 2017 not ESBL e. coli - Urine culture 10/04/17 ESBL e. coli - ID consulted, does not warrant treatment, recs appreciated # MALISSA - trend Cr - decreased clearance could contribute to eliquis coagulopathy # KATE - CPAP at night # Cirrhosis - dose meds appropriately # DM - Sliding scale - accuchecks q6hrs # GERD - protonix # Wounds - wound care consulted - RLE venous stasis - raw skin around trach collar # Chronic anemia - trend CBC # CHF - clinically does not appear overloaded - monitor and diuresis as necessary - f/u on CXR # Paroxysmal A. fib - hold anticoagulant for now # Code status - full code - on hospice at home # PPx - SCDs - Eliquis, aspirin held Dispo: home today FMR H&P: Upper Level - Plan Date/Time: 10/23/17 1046 I, [], have evaluated this patient and agree with findings/plan as outlined by international travel consultant resident. Pertinent changes/additions are listed here.
--- NOTE | 2017-10-23 11:37 | PDOC.EVN ---
Event Note - Event Note Event Note: Came to ED to evaluate patient for possible COPD exacerbation. Patient is satting in mid 90s on 4L, she is on 5L at baseline at home. Spoke to family, the main concern they had was some bleeding from the trach collar which resolved this morning after cleaning the area and switching it out. In the ED she says her main complaint is headache which alleviated after receiving some tylenol. Discussed outpatient treatment for mild COPD exacerbation with family. When presented options of trial of outpatient treatment or admission to hospital patient and son opt to go home and return if condition worsens. Will send patient home with 750mg levoquin PO for 5 days as well as 5 days 40mg prednisone. Family is in understanding that they will return to ED if bleeding again or if respiratory status worsens. Should bleeding occur again consider CT chest F/u in clinic with [facility] in 2 days.
--- NOTE | 2017-11-06 22:41 | EKG ---
Test Reason : Blood Pressure : / mmHG Vent. Rate : 089 BPM Atrial Rate : 089 BPM P-R Int : 138 ms QRS Dur : 098 ms QT Int : 402 ms P-R-T Axes : 001 -09 023 degrees QTc Int : 489 ms Normal sinus rhythm Cannot rule out Anterior infarct , age undetermined No STEMI Abnormal ECG Confirmed by LIZ CURTIS, ROSEMARY ([id number]), multimedia editor ZARA DILL ([id number]) on 11/06/2017 10:40:48 PM Referred By: Confirmed By:ROSEMARY HILL MD
== END 2017-10-23 12:35 | disposition home or self-care (01) ==
LOC: ERS 07:57
DX: J18.9 Pneumonia, unspecified organism (principal); D64.9 Anemia, unspecified; J44.9 Chronic obstructive pulmonary disease, unspecified; E10.9 Type 1 diabetes mellitus without complications; E03.9 Hypothyroidism, unspecified; E66.9 Obesity, unspecified; F32.9 Major depressive disorder, single episode, unspecified; F17.210 Nicotine dependence, cigarettes, uncomplicated; Z79.899 Other long term (current) drug therapy
CPT/HCPCS: 36415; 71045; 80053; 82330; 82550; 82553; 82803; 83690; 84484; 85025; 85610; 85730; 87040; 93005; 94640; 96365; 96366; 96367; 96375; J0456; J1956; J2930; J7620

== ENCOUNTER 2017-11-17 10:12 | Emergency (ER) | payer OTHER ==
[2017-11-17 10:43] LABS: #Basophils 0.1 thou/uL (0.0-0.2); #Eosinphils 0.1 thou/uL (0.0-0.7); #Lymphocytes 2.7 thou/uL (1.20-3.40); #Neutrophils 3.2 thou/uL (1.40-6.50); %Basophils 0.8 % (0.0-1.0); %Eosinophils 1.1 % (0.0-10.0); %Lymphocytes 38.1 % (21.0-51.0); %Monocytes 14.1 % (0.0-10.0); Hemoglobin 10.3 g/dL (12.0-16.0); Mean Corpuscular HGB CONC 31.4 g/dL (32.0-36.0); Mean Corpuscular Hemoglobin 29.8 pg (27.0-31.0); Mean Corpuscular Volume 94.9 fl (81.0-99.0); Mean Platelet Volume 9.3 fL (7.4-10.4); Platelet Count 144 thou/uL (130-400); RBC Distribution Width 20.2 % (11.5-14.5); Red Blood Cell (RBC) Count 3.45 mill/uL (4.20-5.40); White Blood Cell (WBC) Count 7.1 thou/uL (4.8-10.8)
[2017-11-17 11:04] LABS: ALT (SGPT) 19 U/L (8-55); AST (SGOT) 43 U/L (5-34); Alkaline Phosphatase 287 U/L (40-150); Anion Gap 11 mmol/L (10-20); BUN (Urea Nitrogen) 22 mg/dL (9.8-20.1); Bilirubin, Total 1.2 mg/dL (0.2-1.2); CK (CPK) 41 U/L (29-168); Calc. Creatinine Clearance 0 mL/min (70-130); Calcium 8.8 mg/dL (7.8-10.44); Carbon Dioxide 27 mmol/L (22-29); Chloride 104 mmol/L (98-107); Estimated GFR-MDRD 72; Globulin 4.7 g/dL (2.4-3.5); Glucose 97 mg/dL (70-105); Protein, Total 7.7 g/dL (6.0-8.3); Sodium 138 mmol/L (136-145)
[2017-11-17 11:09] LABS: CKMB 1.3 ng/mL (0-6.6); Troponin I 0.011 ng/mL (< 0.028)
[2017-11-17] MEDS ORDERED: Cefepime 2 GM/10 ML SYR ONE (11:15)
[2017-11-17] MEDS ORDERED: GENTAMICIN SULFATE IVPB SCH (11:30)
[2017-11-17] MEDS ORDERED: ADMIXTURE FEE IVPB SCH (11:30)
[2017-11-17] MEDS ORDERED: SODIUM CHLORIDE IVPB SCH (11:30)
[2017-11-17] MEDS ORDERED: Vancomycin HCl 1.75 GM, Admixture Fee 1 EACH in Sodium Chloride 0.9% 500 ML IVPB SCH (11:30)
--- NOTE | 2017-11-17 11:36 | RAD ---
UPRIGHT PORTABLE CHEST ONE VIEW: HISTORY: A 62-year-old female with a history of shortness of breath. COMPARISON: 10/23/2017 FINDINGS: Tracheostomy tube in place. Increased linear and interstitial markings in the left mid lung zone, wh ich appear stable. No new confluent process. No pleural effusion. IMPRESSION: Stable mostly linear and parenchymal changes in the left mid lung zone. No evidence for an overt acu te process. POS: [facility]
== END 2017-11-17 16:50 | disposition home or self-care (01) ==
LOC: ERS 10:12
DX: J44.1 Chronic obstructive pulmonary disease with (acute) exacerbation (principal); D64.9 Anemia, unspecified; E78.5 Hyperlipidemia, unspecified; E10.9 Type 1 diabetes mellitus without complications; E03.9 Hypothyroidism, unspecified; E66.9 Obesity, unspecified; F32.9 Major depressive disorder, single episode, unspecified; F17.210 Nicotine dependence, cigarettes, uncomplicated; Z79.899 Other long term (current) drug therapy
CPT/HCPCS: 36415; 71045; 80053; 82550; 82553; 83605; 83880; 84484; 85025; 87040; 87070; 87077; 87149; 87186; 87205; 93005; 94640; 94760; 96365; 96366; 96375; J0692; J1580; J3370; J7050; J7620

== ENCOUNTER 2017-12-20 11:54 | Inpatient (IN) | payer OTHER ==
[2017-12-20 12:57] LABS: #Basophils 0.1 thou/uL (0.0-0.2); #Eosinphils 0.1 thou/uL (0.0-0.7); #Lymphocytes 1.8 thou/uL (1.20-3.40); #Monocytes 0.8 thou/uL (0.11-0.59); #Neutrophils 2.5 thou/uL (1.40-6.50); %Basophils 1.3 % (0.0-1.0); %Eosinophils 2.4 % (0.0-10.0); %Lymphocytes 34.2 % (21.0-51.0); %Monocytes 14.7 % (0.0-10.0); %Neutrophils 47.5 % (42.0-75.0); Hemoglobin 11.4 g/dL (12.0-16.0); Mean Corpuscular Hemoglobin 32.5 pg (27.0-31.0); Mean Platelet Volume 10.3 fL (7.4-10.4); Platelet Count 103 thou/uL (130-400); RBC Distribution Width 21.6 % (11.5-14.5); Red Blood Cell (RBC) Count 3.52 mill/uL (4.20-5.40); White Blood Cell (WBC) Count 5.3 thou/uL (4.8-10.8)
[2017-12-20] MEDS ORDERED: Morphine 4 MG/ML VIAL ONE ×2 (12:57→19:09)
[2017-12-20 13:03] LABS: CKMB 1.9 ng/mL (0-6.6); Troponin I 0.014 ng/mL (< 0.028)
[2017-12-20 13:06] LABS: ALT (SGPT) 23 U/L (8-55); AST (SGOT) 63 U/L (5-34); Alkaline Phosphatase 265 U/L (40-150); Anion Gap 12 mmol/L (10-20); BUN (Urea Nitrogen) 22 mg/dL (9.8-20.1); Bilirubin, Total 1.6 mg/dL (0.2-1.2); CK (CPK) 110 U/L (29-168); Calc. Creatinine Clearance 0 mL/min (70-130); Calcium 8.7 mg/dL (7.8-10.44); Carbon Dioxide 31 mmol/L (22-29); Chloride 97 mmol/L (98-107); Estimated GFR-MDRD 70; Glucose 78 mg/dL (70-105); Lipase 29 U/L (8-78); Potassium 4.4 mmol/L (3.5-5.1); Sodium 136 mmol/L (136-145)
[2017-12-20 13:25] LABS: Bilirubin Negative (Negative); Blood, Urine Negative (Negative); Clarity CLEAR (Clear); Glucose, Urine (Dipstick) Negative (Negative); Leukocyte Negative (Negative); Nitrite Negative (Negative); Protein, Urine (Dipstick) Negative (Neg-Trace); Specific Gravity, Urine 1.007 (1.002-1.036); Urobilinogen 0.2 mg/dL (0.2-1.0)
[2017-12-20] MEDS ORDERED: Furosemide 40 MG/4 ML VIAL ONE (14:05)
--- NOTE | 2017-12-20 14:16 | PDOC.FPRHP ---
- History of Present Illness Chief Complaint: lower extremity swelling History of Present Illness: 62 yo F w/ extensive PMH pertinent for HFpEF, obesity hypoventilation syndrome s /p trach placement, hypothyroid, paroxysmal a-fib who rpresents to the ER for evaluation of increasing LE edema. Pt has been seen by myself and 2 other providers in clinic over the last 1.5 months for this same problem. She was originally seen for increased swelling in her pannus with associated erythema and warmth, was treated for cellulitis at that time. She returned to clinic one week later with complaint of worsening swelling of her pannus, but resolution of the erythema and warmth. At that time pts lasix dose was doubled and she was instructed to rtc in one week. On f/u pt reported worsening pannus swelling and new/worsening swelling of her LE b/l. She was then given metolazone for the swelling and instructed to rtc in one week for further evaluation. Pt now reports worsening of her b/l LE edema and has persistent swelling of her pannus/ abdomen. CXR in the ER shows findings consistent with fluid overload. She was given 40lasix and metolazone in the ED. It is unclear if the pt ever took the metolazone after it was prescribed or if she has been taking her lasix as prescribed. She lives at home and is cared for primarily by her 16 yo son. The pts is gone most of the time at work. The other primary machine setter sheet metal is her neighbor. She does have home health; however, she does not have assistance with daily functions of living. She denies cp, fever, chills sweats. Does report some mild sob and increased sputum production but has been taking omnicef for pharyngitis. Otherwise no complaints. ED Course: Lasix, metolazone - Allergies/Adverse Reactions Allergies Allergy/AdvReac Type Severity Reaction Status Date / Time Penicillins Allergy Intermediate Rash Verified 08/01/17 17:31 amoxicillin [Amoxicillin] Allergy Verified 08/01/17 17:31 - Home Medications Medication Instructions Recorded Confirmed Type Pantoprazole [Protonix] 40 mg PO Q24HR #30 tab 02/02/17 10/04/17 Rx Ferrous Sulfate [Feosol] 325 mg PO BID-WM #60 tab 05/20/17 10/04/17 Rx Levothyroxine Sodium 112 mcg PO DAILY 06/20/17 10/04/17 History Potassium Chloride [K-Dur] 20 meq PO DAILY 06/20/17 10/04/17 History Furosemide [Lasix] 40 mg PO DAILY-AC #30 tab 06/23/17 10/04/17 Rx Ipratropium [place] [Atrovent] 2.5 ml NEB Q2HR #1 box 09/01/17 10/04/17 Rx buPROPion HCl [Wellbutrin] 100 mg PO BID 10/04/17 10/04/17 History Guaifenesin DM 100-10 [Robitussin 15 ml PO Q4H PRN 5 Days #1 ml 10/06/17 Rx DM] traMADol HCl [Ultram] 50 mg PO Q12H PRN 5 Days #10 tab 10/06/17 Rx Aspirin [Adult Aspirin Regimen] 81 mg PO DAILY 30 Days #30 10/09/17 Rx tablet. Albuterol Sulfate [Proventil Hfa] 12/20/17 History Ferrous Sulfate 325 mg PO BID 12/20/17 12/20/17 History Furosemide [Furosemide] 12/20/17 History Pantoprazole [Protonix] 40 mg PO DAILY 12/20/17 12/20/17 History Vitamin B Complex [B Complex] 1 tablet PO DAILY 12/20/17 12/20/17 History buPROPion HCl [Wellbutrin] 12/20/17 History Comments: Pt no longer on tramadol. - History PMHx: Acute on chronic hypoxic respiratory failure with tracheostomy KATE HTN HLD OA, bilateral Morbid Obesity MDD pAF Hypothyroidism dCHF COPD Anemia PSHx: tracheostomy NKDA FHx:NA Social: hx of tobacco use - Review of Systems General: denies: fever/chills, weight/appetite/sleep changes, night sweats, fatigue Eyes: denies: eye pain, vision changes ENT: denies: nasal congestion, rhinorrhea Respiratory: reports: shortness of breath. denies: cough, congestion, exercise intolerance Cardiovascular: reports: edema. denies: chest pain, palpitation Gastrointestinal: reports: abdominal pain. denies: nausea, vomiting, diarrhea, constipation Genitourinary: denies: incontinence, dysuria Skin: denies: rashes, lesions Musculoskeletal: reports: pain, swelling, arthritis/arthralgias Neurological: denies: numbness, syncope, weakness - Vital signs BP: 112/60 HR: 74 RR: 20 Tmax: 98.1 Pox: 99% on RA Wt: 136kg - Physical Exam Constitutional: NAD, awake, alert and oriented, other (Morbidly obese) HEENT: normocephalic and atraumatic, PERRLA, EOMI, conjunctiva clear, no scleral icterus, grossly normal vision, other (Erythematous orophaynx) Neck: supple, no LAD, no JVD, no thyromegaly, other (Trach in place) Heart: RRR, normal S1/S2, no murmurs/rubs/gallops, other (3+ pitting edema to knees b/l, pitting edema of pannus) Lungs: CTAB, no respiratory distress, good air movement, no rales/rhonchi, no wheezing, no retractions Abdomen: soft, non-tender, bowel sounds present, no masses/distention Musculoskeletal: normal tone, ROM grossly normal Neurological: no focal deficit Skin: capillary refill <2 seconds, no jaundice, other (Venous stasis changes of b/l LE) Heme/Lymphatic: no unusual bruising or bleeding, no petechia FMR H&P: Results - Labs Result Diagrams: 12/20/17 12:32 12/20/17 12:32 Lab results: WBC 5.3 thou/uL (4.8-10.8) 12/20/17 12:32 Hgb 11.4 g/dL (12.0-16.0) L 12/20/17 12:32 Hct 35.7 % (36.0-47.0) L 12/20/17 12:32 MCV 102.0 fl (81.0-99.0) H 12/20/17 12:32 Plt Count 103 thou/uL (130-400) L 12/20/17 12:32 Neutrophils % 47.5 % (42.0-75.0) 12/20/17 12:32 Sodium 136 mmol/L (136-145) 12/20/17 12:32 Potassium 4.4 mmol/L (3.5-5.1) 12/20/17 12:32 Chloride 97 mmol/L (98-107) L 12/20/17 12:32 Carbon Dioxide 31 mmol/L (22-29) H 12/20/17 12:32 BUN 22 mg/dL (9.8-20.1) H 12/20/17 12:32 Creatinine 0.83 mg/dL (0.6-1.1) 12/20/17 12:32 Glucose 78 mg/dL (70-105) 12/20/17 12:32 Calcium 8.7 mg/dL (7.8-10.44) 12/20/17 12:32 Total Bilirubin 1.6 mg/dL (0.2-1.2) H 12/20/17 12:32 AST 63 U/L (5-34) H 12/20/17 12:32 ALT 23 U/L (8-55) 12/20/17 12:32 Alkaline Phosphatase 265 U/L (40-150) H 12/20/17 12:32 Creatine Kinase 110 U/L (29-168) 12/20/17 12:32 CK-MB (CK-2) 1.9 ng/mL (0-6.6) 12/20/17 12:32 B-Natriuretic Peptide 159.8 pg/mL (0-100) H 12/20/17 12:32 Serum Total Protein 8.0 g/dL (6.0-8.3) 12/20/17 12:32 Albumin 3.0 g/dL (3.5-5.0) L 12/20/17 12:32 Lipase 29 U/L (8-78) 12/20/17 12:32 Urine Ketones Negative mg/dL (Negative) 12/20/17 12:40 Urine Blood Negative (Negative) 12/20/17 12:40 Urine Nitrite Negative (Negative) 12/20/17 12:40 Ur Leukocyte Esterase Negative (Negative) 12/20/17 12:40 - EKG Interpretation EKG: NSR, prolonged QT - Radiology Interpretation Chest x-ray Status: report reviewed by me (Mildly increased perihilaar markings, suggesting pulmonary edema) FMR H&P: A/P - Problem List (1) CHF exacerbation Current Visit: No Status: Acute Code(s): I50.9 - HEART FAILURE, UNSPECIFIED (2) Diastolic CHF Current Visit: No Status: Chronic Code(s): I50.30 - UNSPECIFIED DIASTOLIC ( CONGESTIVE) HEART FAILURE (3) KATE (obstructive sleep apnea) Current Visit: No Status: Acute Code(s): G47.33 - OBSTRUCTIVE SLEEP APNEA ( ADULT) (PEDIATRIC) (4) Hypertension Current Visit: No Status: Chronic Code(s): I10 - ESSENTIAL (PRIMARY) HYPERTENSION Qualifiers: Hypertension type: essential hypertension Qualified Code(s): I10 - Essential (primary) hypertension (5) Hypothyroid Current Visit: No Status: Chronic Code(s): E03.9 - HYPOTHYROIDISM, UNSPECIFIED Qualifiers: (6) Hypoventilation associated with obesity Current Visit: No Status: Chronic Code(s): E66.2 - MORBID (SEVERE) OBESITY WITH ALVEOLAR HYPOVENTILATION (7) Obesity, morbid Current Visit: No Status: Chronic Code(s): E66.01 - MORBID (SEVERE) OBESITY DUE TO EXCESS CALORIES (8) Venous stasis Current Visit: No Status: Chronic Code(s): I87.8 - OTHER SPECIFIED DISORDERS OF VEINS (9) History of tobacco abuse Current Visit: No Status: Acute Code(s): Z87.891 - PERSONAL HISTORY OF NICOTINE DEPENDENCE - Plan dCHF exacerbation- -We will admit to inpatient and diurese with 40mg Lasix BID in addition to metolazone 5mg/day. -Strict I/O's and restrict fluids. -Heart healthy diet -Monitor UOP and bmp daily KATE -pt has a trach and is on cpap at night GERD - protonix Chronic anemia - trend CBC Paroxysmal A. fib - hold anticoagulant for now. Difficult social situation: -case mangement and palliative care consulted for goals of care and help with placement/discharge planning -pt would benefit from retirement placement -primary healthcare administrator is pts 16 yo son Disposition/LOS: stable, >/= 2 days FMR H&P: Upper Level - Pertinent history 62 yo HF w/ PMHx sig for HFpEF, obesity hypoventilation syndrome s/p trach, pAfib p/w increasing LE edema from baseline-- She has been seen multiple times outpatient for the concern and was treated for cellulitis and her diuretics were increased. Upon questioning pt in ED, she is unsure of any increase in diuretics. She states she had difficulty taking any extra diuretics as it made her have urinary incontinence. She also endorses increase in cough and SOB with exertion. Denies any fevers, chills. See prior notes, but at baseline, pt is cared for by her 16 yo son. While he is in school, she occasionally has help from a neighbor. Has been placed in NH prior but there has been difficulty with placement due to having a balance at several nursing homes. - Pertinent findings PE- gen- NAD, obese appearing lungs- no resp distress on trach collar, lung exam difficult due to pts body habitus but no apparent crackles CV- rrr no mrg, but technically difficult exam Abd- soft with chronic edema to abd pannus and erythma under lg skin fold LE- 3+ pitting edema with mild weeping of lesions to knees psyc- tearful on exam. awake & alert Sig labs- Laboratory Tests 12/20/17 12/20/17 12/20/17 12:32 12:32 12:32 WBC Hgb Hct Plt Count Chloride 97 L Carbon Dioxide 31 H Total Bilirubin 1.6 H AST 63 H Alkaline Phosphatase 265 H CK-MB (CK-2) 1.9 Troponin I 0.014 B-Natriuretic Peptide 159.8 H 12/20/17 12:32 WBC 5.3 Hgb 11.4 L Hct 35.7 L Plt Count 103 L Chloride Carbon Dioxide Total Bilirubin AST Alkaline Phosphatase CK-MB (CK-2) Troponin I B-Natriuretic Peptide CXR- increase in pulmonary congestion - Plan Date/Time: 12/20/17 1416 62yo HF with significant pmhx including dCHF, KATE/OHS w/ trach-- 1) Acute on chronic exacerbation of HFpEF- diastolic dysfunction at baseline. Admit inpatient tele & diurese with IV lasix and metolazone. monitor Strict I/O' s and restrict fluids. Low Na diet, daily weights. Monitor electrolytes closely. 2) OHS with trach + KATE- continue trach collar w/ cpap at night 3) pAFib- hold anticoagulation due to h/o massive GIB. 4) chronic anemia- stable 5) concern for home situation- case mangement and palliative care consult for placement/discharge planning. would benefit from medical terminologist placement in [facility]. concern with primary healthcare administrator is pts 16 yo son I, [Mary Swann DO ([email or web address])], have evaluated this patient and agree with findings/plan as outlined by manager internal resident. Pertinent changes/additions are listed here. Attending Addendum - Attending Addendum Date/Time: 12/20/17 1640 I personally evaluated the patient and discussed the management with Dr. Hughes and Dr. Swann I agree with the History, Examination, Assessment and Plan documented above with any addition or exceptions noted below. 62 yo female with multiple medical problems present with worsening edema and pain. Patient in overload state with worsening of HF. Will admit to tele. Monitor I/ Os. Use diuretics cautiously due to BP. Needs PT to help with significant LE edema due to venous insufficiency and lymphatic issues. Unable to appropraitely care for herself at home. Will consult CM to help with placement. Monitor for s/ sx of paniculitis. Was recently on antibiotics for issue. Xray of right great toe pending due to recent trauma. Adjust home meds as needed. Leon
--- NOTE | 2017-12-20 14:27 | RAD ---
CHEST ONE VIEW: History: Swelling. Dyspnea. Comparison: 11-17-17 FINDINGS: Lungs are hyperinflated with vascular crowding. Mild interstitial edema. No pneumothorax or large eff usion. Tracheostomy is in place. IMPRESSION: Mild increased perihilar markings suggesting pulmonary edema. POS: [facility]
[2017-12-20] MEDS ORDERED: Metolazone 5 MG TAB PO SCH (14:30)
[2017-12-20] MEDS ORDERED: Ondansetron HCl/PF 4 MG/2 ML Vial IVP PRN (14:53)
[2017-12-20] MEDS ORDERED: Ondansetron ODT 4 MG TAB PO PRN (14:53)
--- NOTE | 2017-12-20 16:16 | RAD ---
3 VIEW RIGHT GREAT TOE: Date: 12/20/17 INDICATION: Joint pain, edema. FINDINGS: There is no fracture or dislocation. Osteoarthritis is present. No radiopaque foreign body of the sof t tissues present. There is prominence of the right great toe soft tissues. Correlate clinically. IMPRESSION: 1. No acute osseous abnormality. 2. Soft tissue prominence of the right great toe. Correlate with physical exam. POS: [facility]
[2017-12-20 16:46] LABS: Troponin I 0.012 ng/mL (< 0.028)
[2017-12-20 19:56] VITALS: BMI 54.9
[2017-12-20] MEDS ORDERED: Famotidine/PF 20 mg/2ml Vial SLOW IVP SCH (21:00)
[2017-12-21] MEDS ORDERED: Albuterol Sulfate 1.25 MG/3 ML NEB NEB PRN (01:49)
[2017-12-21] MEDS: Docusate 100 MG CAP PO SCH ×2 (02:02→09:31)
[2017-12-21] MEDS: buPROPion HCl 100 MG TAB PO SCH ×3 (02:07→20:42)
[2017-12-21] MEDS: Famotidine 20 MG TAB PO SCH ×2 (02:07→09:48)
[2017-12-21 05:24] LABS: #Eosinphils 0.1 thou/uL (0.0-0.7); #Lymphocytes 1.9 thou/uL (1.20-3.40); #Monocytes 0.8 thou/uL (0.11-0.59); #Neutrophils 2.4 thou/uL (1.40-6.50); %Basophils 0.6 % (0.0-1.0); %Eosinophils 2.6 % (0.0-10.0); %Monocytes 14.5 % (0.0-10.0); %Neutrophils 45.3 % (42.0-75.0); Hemoglobin 10.8 g/dL (12.0-16.0); Mean Corpuscular HGB CONC 31.1 g/dL (32.0-36.0); Mean Corpuscular Hemoglobin 31.7 pg (27.0-31.0); Mean Platelet Volume 8.7 fL (7.4-10.4); Platelet Count 119 thou/uL (130-400); RBC Distribution Width 21.5 % (11.5-14.5); Red Blood Cell (RBC) Count 3.42 mill/uL (4.20-5.40); White Blood Cell (WBC) Count 5.2 thou/uL (4.8-10.8)
[2017-12-21 05:31] LABS: Anion Gap 11 mmol/L (10-20); BUN (Urea Nitrogen) 20 mg/dL (9.8-20.1); Calc. Creatinine Clearance 168 mL/min (70-130); Calcium 8.5 mg/dL (7.8-10.44); Carbon Dioxide 33 mmol/L (22-29); Chloride 97 mmol/L (98-107); Estimated GFR-MDRD 74; Glucose 90 mg/dL (70-105); Potassium 3.5 mmol/L (3.5-5.1); Sodium 137 mmol/L (136-145)
[2017-12-21] MEDS: Furosemide 40 MG/4 ML VIAL SLOW IVP SCH ×2 (05:56→13:58)
[2017-12-21] MEDS: Levothyroxine Sodium 112 MCG TAB PO SCH (05:56)
[2017-12-21] MEDS ORDERED: Metolazone 5 MG TAB PO SCH (08:30)
--- NOTE | 2017-12-21 08:50 | PDOC.FM ---
- Subjective Subjective: No acute events overnight. Pt reports she is doing a little better but has persistent pain in b/l LE and abdomen. She is requesting that she be able to drink more water and we discussed the necessity to fluid restrict because of her medical condition and the worsening LE edema. It appears pt never filled her metolazone script in the OP setting and it is unclear if she has been taking her prescribed diuretic as prescribed. CM and palliative consulted for help with DC planning and goals of care discussion with family. - Objective Vital Signs & Weight: Vital Signs (12 hours) Temp Pulse Resp BP Pulse Ox 12/21/17 04:00 98.0 F 76 16 126/74 92 L 12/21/17 00:00 97.9 F 72 14 123/68 97 12/20/17 20:57 98 Weight Weight 141.067 kg Result Diagrams: 12/21/17 04:50 12/21/17 04:50 <Jaguar Hughes - Last Filed: 12/21/17 08:48> - Objective Vital Signs & Weight: Vital Signs (12 hours) Temp Pulse Resp BP Pulse Ox 12/21/17 08:00 98.1 F 78 16 118/68 92 L 12/21/17 04:00 98.0 F 76 16 126/74 92 L 12/21/17 00:00 97.9 F 72 14 123/68 97 Weight Weight 141.067 kg Result Diagrams: 12/21/17 04:50 12/21/17 04:50 <Lloyd Escobar - Last Filed: 12/21/17 11:43> Phys Exam - Physical Examination Constitutional: NAD Morbidly obese. HEENT: PERRLA, sclera anicteric Neck: no nodes, no JVD Respiratory: no wheezing, no rales, no rhonchi coarse breath sounds throughout 2/2 trach Cardiovascular: RRR, no significant murmur Gastrointestinal: soft, non-tender, no distention, positive bowel sounds Musculoskeletal: pulses present, edema present (2+ pitting to above knees, pitting edema of pannus) Neurological: non-focal, normal sensation Skin: cap refill <2 seconds Deviation from normal: venous stasis dermatitis b/l LE <Jaguar Hughes - Last Filed: 12/21/17 08:48> Dx/Plan (1) CHF exacerbation Code(s): I50.9 - HEART FAILURE, UNSPECIFIED Status: Acute (2) Diastolic CHF Code(s): I50.30 - UNSPECIFIED DIASTOLIC (CONGESTIVE) HEART FAILURE Status: Chronic (3) KATE (obstructive sleep apnea) Code(s): G47.33 - OBSTRUCTIVE SLEEP APNEA (ADULT) (PEDIATRIC) Status: Acute (4) Hypertension Code(s): I10 - ESSENTIAL (PRIMARY) HYPERTENSION Status: Chronic QualifierTitle: Hypertension type: essential hypertension Qualified Code( s): I10 - Essential (primary) hypertension (5) Hypothyroid Code(s): E03.9 - HYPOTHYROIDISM, UNSPECIFIED Status: Chronic (6) Hypoventilation associated with obesity Code(s): E66.2 - MORBID (SEVERE) OBESITY WITH ALVEOLAR HYPOVENTILATION Status : Chronic (7) Obesity, morbid Code(s): E66.01 - MORBID (SEVERE) OBESITY DUE TO EXCESS CALORIES Status: Chronic (8) Venous stasis Code(s): I87.8 - OTHER SPECIFIED DISORDERS OF VEINS Status: Chronic (9) History of tobacco abuse Code(s): Z87.891 - PERSONAL HISTORY OF NICOTINE DEPENDENCE Status: Acute - Plan Plan: dCHF exacerbation- -We will admit to inpatient and diurese with 40mg Lasix BID in addition to metolazone 5mg/day. Will add spirinolactone for HFpEF. -Strict I/O's and restrict fluids to 1500mL/day -Heart healthy diet -Monitor UOP and bmp daily KATE -pt has a trach and is on cpap at night, continue GERD - protonix Chronic anemia - trend CBC -stable Paroxysmal A. fib - hold anticoagulant for now as pt had a massive GI a few months prior that resulted in prolonged hospital stay and ICU care. Difficult social situation: -case mangement and palliative care consulted for goals of care and help with placement/discharge planning. Dispo: Continue diuresis and monitor strict Is/Os. Clinically, unchanged from yesterday. <Jaguar Hughes - Last Filed: 12/21/17 08:48> Attending Addendum - Attending Addendum Date/Time: 12/21/17 4439 I personally evaluated the patient and discussed the management with Dr. Hughes I agree with the History, Examination, Assessment and Plan documented above with any addition or exceptions noted below. Patient admitted with exacerbation CHF, HX KATE, longstanding stasis dermatitis recently treated with sulfa for abdominal panniculitis with improvement. PmHX notable prior positive AFB of questionable significance. Today lower abdomen mildly erythematous hot and tender to touch empirically treat with ABX abdominal wall US and entertain biopsy. Candid discussion with patient regard care home placement option PT/OT consulted repeated history noncompliance as outpatient she would benefit from more structured environment. <Lloyd Escobar - Last Filed: 12/21/17 11:43>
[2017-12-21] MEDS ORDERED: Potassium Chloride 20 MEQ TAB PO SCH (09:00)
[2017-12-21] MEDS: Ferrous Sulfate 325 MG TAB PO SCH ×2 (09:25→17:15)
[2017-12-21] MEDS: Spironolactone 25 MG TAB PO SCH (09:26)
[2017-12-21] MEDS: Acetaminophen 325 MG TAB PO PRN (09:28)
[2017-12-21] MEDS: Pantoprazole 40 MG GRANULES PACKET PO SCH (09:40)
[2017-12-21] MEDS: cefTRIAXone\\ROCEPHIN 1 GM in Sodium Chloride 0.9% 100 ML IVPB SCH (13:39)
[2017-12-21] MEDS: Docusate Sodium 100 MG/10 ML UDCUP PO SCH ×2 (13:39→20:42)
[2017-12-21] MEDS: Vancomycin HCl 1.25 GM in Sodium Chloride 0.9% 250 ML 250 ML IVPB SCH ×2 (15:39→20:42)
[2017-12-22 04:50] LABS: #Eosinphils 0.1 thou/uL (0.0-0.7); #Lymphocytes 1.8 thou/uL (1.20-3.40); #Monocytes 0.8 thou/uL (0.11-0.59); #Neutrophils 2.5 thou/uL (1.40-6.50); %Basophils 0.4 % (0.0-1.0); %Eosinophils 2.7 % (0.0-10.0); %Lymphocytes 34.3 % (21.0-51.0); %Monocytes 14.8 % (0.0-10.0); %Neutrophils 47.8 % (42.0-75.0); Hemoglobin 9.9 g/dL (12.0-16.0); Mean Corpuscular HGB CONC 33.2 g/dL (32.0-36.0); Mean Corpuscular Hemoglobin 33.5 pg (27.0-31.0); Mean Platelet Volume 9.2 fL (7.4-10.4); Platelet Count 102 thou/uL (130-400); RBC Distribution Width 21.2 % (11.5-14.5); Red Blood Cell (RBC) Count 2.94 mill/uL (4.20-5.40); White Blood Cell (WBC) Count 5.2 thou/uL (4.8-10.8)
[2017-12-22 05:08] LABS: Anion Gap 11 mmol/L (10-20); BUN (Urea Nitrogen) 18 mg/dL (9.8-20.1); Calc. Creatinine Clearance 173 mL/min (70-130); Calcium 8.4 mg/dL (7.8-10.44); Carbon Dioxide 36 mmol/L (22-29); Chloride 95 mmol/L (98-107); Estimated GFR-MDRD 76; Glucose 77 mg/dL (70-105); Potassium 3.6 mmol/L (3.5-5.1); Sodium 138 mmol/L (136-145)
[2017-12-22] MEDS: Levothyroxine Sodium 112 MCG TAB PO SCH (05:10)
[2017-12-22] MEDS: Vancomycin HCl 1.25 GM in Sodium Chloride 0.9% 250 ML 250 ML IVPB SCH ×2 (05:10→19:40)
[2017-12-22] MEDS: Furosemide 40 MG/4 ML VIAL SLOW IVP SCH ×2 (05:10→13:06)
--- NOTE | 2017-12-22 06:58 | PDOC.FM ---
- Subjective Subjective: Hospital day 3. No acute events overnight. Pt has diuresed well and is down approx 7kg. BP this am running low, will hold metolazone this am and continue IV lasix and spirinolactone. She denies cp, sob, nvdc. Still has b/l tenderness to palpation of LE and stasis dermatitis changes; however, edema and pain have improved. Reports persistent pain in her pannus, but states that has improved since yesterday. Speaking with pt this morning she lives at home with only her 16yo son and the father lives elsewhere with another relative. She has home health 2X/week and occasionally a neighbor will help at home. She did not ever take her prescribed metolazone in the OP setting and has been non-compliant with her fluid restrictions. She states that she has been taking her lasix as prescribed; however, she previously stated she does not take them regularly because she cannot get to the bathroom in time, especially when her son is not home. - Objective Vital Signs & Weight: Vital Signs (12 hours) Temp Pulse Resp BP Pulse Ox 12/22/17 04:00 98.6 F 73 18 98/58 L 98 12/22/17 00:00 98.9 F 76 18 96/54 L 94 L 12/21/17 20:04 98.4 F 75 16 108/56 L 97 12/21/17 20:00 98.4 F 75 16 Weight Weight 134.263 kg I&O: 12/20/17 12/21/17 12/22/17 06:59 06:59 06:59 Intake Total 1272 Output Total 8850 Balance -7578 Result Diagrams: 12/22/17 04:16 12/22/17 04:16 <Jaguar Hughes - Last Filed: 12/22/17 08:59> - Objective Vital Signs & Weight: Vital Signs (12 hours) Temp Pulse Resp BP Pulse Ox 12/22/17 11:20 98.0 F 70 18 100/59 L 92 L 12/22/17 08:00 99 F 69 17 12/22/17 07:36 99 F 69 17 105/58 L 94 L 12/22/17 04:00 98.6 F 73 18 98/58 L 98 Weight Weight 134.263 kg I&O: 12/21/17 12/22/17 12/23/17 06:59 06:59 06:59 Intake Total 1272 Output Total 8850 Balance -7578 Result Diagrams: 12/22/17 04:16 12/22/17 04:16 <Lloyd Escobar - Last Filed: 12/22/17 12:09> Phys Exam - Physical Examination Constitutional: NAD Morbidly obese HEENT: PERRLA, sclera anicteric Neck: no nodes, no JVD trach in place Respiratory: no wheezing, no rales, no rhonchi, clear to auscultation bilateral Cardiovascular: RRR, no significant murmur, no rub Gastrointestinal: soft, no distention, positive bowel sounds pannus ttp, w/o erythema or warmth Musculoskeletal: pulses present, edema present Neurological: non-focal, moves all 4 limbs Deviation from normal: tearful when speaking about fpc Skin: no rash, cap refill <2 seconds <Jaguar Hughes - Last Filed: 12/22/17 08:59> Dx/Plan (1) CHF exacerbation Code(s): I50.9 - HEART FAILURE, UNSPECIFIED Status: Acute (2) Diastolic CHF Code(s): I50.30 - UNSPECIFIED DIASTOLIC (CONGESTIVE) HEART FAILURE Status: Chronic (3) KATE (obstructive sleep apnea) Code(s): G47.33 - OBSTRUCTIVE SLEEP APNEA (ADULT) (PEDIATRIC) Status: Acute (4) Hypertension Code(s): I10 - ESSENTIAL (PRIMARY) HYPERTENSION Status: Chronic QualifierTitle: Hypertension type: essential hypertension Qualified Code( s): I10 - Essential (primary) hypertension (5) Hypothyroid Code(s): E03.9 - HYPOTHYROIDISM, UNSPECIFIED Status: Chronic (6) Hypoventilation associated with obesity Code(s): E66.2 - MORBID (SEVERE) OBESITY WITH ALVEOLAR HYPOVENTILATION Status : Chronic (7) Obesity, morbid Code(s): E66.01 - MORBID (SEVERE) OBESITY DUE TO EXCESS CALORIES Status: Chronic (8) Venous stasis Code(s): I87.8 - OTHER SPECIFIED DISORDERS OF VEINS Status: Chronic (9) History of tobacco abuse Code(s): Z87.891 - PERSONAL HISTORY OF NICOTINE DEPENDENCE Status: Resolved (10) Cellulitis Code(s): L03.90 - CELLULITIS, UNSPECIFIED Status: Acute QualifierTitle: Site of cellulitis: extremity Site of cellulitis of extremity: lower extremity Laterality: left Qualified Code(s): L03.116 - Cellulitis of left lower limb - Plan Plan: dCHF exacerbation- -continue strict Is/Os and fluid restriction in addition to spirinolactone ( decreased dose to 12.5) and lasix. Hold metolazone. -Chronic edema with associated venous stasis dermatitis, improved from yesterday. -this is all likely 2/2 medication and diet non-compliance, counseled on importance of medication and diet compliance. KATE -pt has a trach and is on cpap at night, continue GERD - protonix Chronic anemia - trend CBC -stable Paroxysmal A. fib - hold anticoagulant for now as pt had a massive GI a few months prior that resulted in prolonged hospital stay and ICU care. Cont plan of care. Cellulitis vs panniculitis: -IV vanc and rocephin, pain is still present; however, improved from yesterday. Likely edema component contributing to pain, but we will cont IV abx for now. Difficult social situation: -case mangement and palliative care consulted for goals of care and help with placement/discharge planning. Dispo: Continue diuresis and monitor strict Is/Os. Clinically, improved from yesterday. CM consulted, likely approaching discharge tomorrow. Continue DC planning. <Jaguar Hughes - Last Filed: 12/22/17 08:59> Attending Addendum - Attending Addendum Date/Time: 12/22/17 1206 I personally evaluated the patient and discussed the management with Dr. Hughes I agree with the History, Examination, Assessment and Plan documented above with any addition or exceptions noted below.Team visted extensively with Social Service,Palliative care for nursing home management option for patient and family will visit with [employer] history teacher to determine Patients desires and best interest. <Lloyd Escobar - Last Filed: 12/22/17 12:09>
[2017-12-22] MEDS: buPROPion HCl 100 MG TAB PO SCH ×2 (08:45→19:40)
[2017-12-22] MEDS: Docusate Sodium 100 MG/10 ML UDCUP PO SCH ×2 (08:45→19:41)
[2017-12-22] MEDS: Pantoprazole 40 MG GRANULES PACKET PO SCH (08:45)
[2017-12-22] MEDS: Ferrous Sulfate 325 MG TAB PO SCH ×2 (08:45→16:39)
[2017-12-22] MEDS: Spironolactone 25 MG TAB PO SCH (08:45)
[2017-12-22] MEDS: Acetaminophen 325 MG TAB PO PRN (08:58)
[2017-12-22] MEDS: cefTRIAXone\\ROCEPHIN 1 GM in Sodium Chloride 0.9% 100 ML IVPB SCH (11:21)
[2017-12-22 11:31] LABS: Vancomycin, Trough 28.1 ug/mL
[2017-12-23] MEDS: Acetaminophen 325 MG TAB PO PRN ×2 (00:56→12:22)
[2017-12-23] MEDS: Levothyroxine Sodium 112 MCG TAB PO SCH (05:04)
[2017-12-23] MEDS: Furosemide 40 MG/4 ML VIAL SLOW IVP SCH ×2 (05:04→14:25)
[2017-12-23 05:18] LABS: Anion Gap 9 mmol/L (10-20); BUN (Urea Nitrogen) 18 mg/dL (9.8-20.1); Calc. Creatinine Clearance 161 mL/min (70-130); Calcium 8.4 mg/dL (7.8-10.44); Carbon Dioxide 36 mmol/L (22-29); Chloride 93 mmol/L (98-107); Estimated GFR-MDRD 74; Glucose 77 mg/dL (70-105); Potassium 3.4 mmol/L (3.5-5.1); Sodium 135 mmol/L (136-145)
[2017-12-23 06:29] LABS: #Basophils 0.1 thou/uL (0.0-0.2); #Eosinphils 0.2 thou/uL (0.0-0.7); #Monocytes 0.7 thou/uL (0.11-0.59); #Neutrophils 2.4 thou/uL (1.40-6.50); %Eosinophils 3.7 % (0.0-10.0); %Lymphocytes 37.2 % (21.0-51.0); %Monocytes 13.6 % (0.0-10.0); %Neutrophils 44.4 % (42.0-75.0); Anisocytosis SLIGHT = 6-15 cells (100X) (0-5/hpf); Hemoglobin 10.1 g/dL (12.0-16.0); MDiff Complete? YES; Macrocytosis SLIGHT = 6-15 cells (100X) (0-5/hpf); Mean Corpuscular HGB CONC 32.6 g/dL (32.0-36.0); Mean Corpuscular Hemoglobin 33.1 pg (27.0-31.0); Mean Platelet Volume 10.2 fL (7.4-10.4); PLT Morphology Comment Appears Decreased; Platelet Count 110 thou/uL (130-400); Red Blood Cell (RBC) Count 3.05 mill/uL (4.20-5.40); White Blood Cell (WBC) Count 5.4 thou/uL (4.8-10.8)
[2017-12-23] MEDS ORDERED: Potassium Chloride 20 MEQ TAB PO SCH (07:15)
[2017-12-23] MEDS: Spironolactone 25 MG TAB PO SCH (08:50)
[2017-12-23] MEDS: Docusate Sodium 100 MG/10 ML UDCUP PO SCH ×2 (08:51→20:52)
[2017-12-23] MEDS: Pantoprazole 40 MG GRANULES PACKET PO SCH (08:51)
[2017-12-23] MEDS: buPROPion HCl 100 MG TAB PO SCH ×2 (08:51→21:39)
[2017-12-23] MEDS: Vancomycin HCl 1.25 GM in Sodium Chloride 0.9% 250 ML 250 ML IVPB SCH ×2 (08:52→20:53)
[2017-12-23] MEDS: Ferrous Sulfate 325 MG TAB PO SCH (09:15)
--- NOTE | 2017-12-23 09:17 | PDOC.FM ---
- Subjective Subjective: No acute events overnight. Pt reports she is feeling much better. Denies cp, sob , nvdc, fever and chills. Her pain in her abdomen and legs has significantly improved with continued diuresis. - Objective Vital Signs & Weight: Vital Signs (12 hours) Temp Pulse Resp BP BP Pulse Ox 12/23/17 08:14 98 F 61 14 97/53 L 97 12/23/17 04:00 98.5 F 67 12 111/62 91 L Weight Weight 127.505 kg I&O: 12/22/17 12/23/17 12/24/17 06:59 06:59 06:59 Intake Total 1272 1090 Output Total 8850 7200 Balance -7569 -4310 Result Diagrams: 12/23/17 04:26 12/23/17 04:26 <Jaguar Hughes - Last Filed: 12/23/17 09:15> - Objective Vital Signs & Weight: Vital Signs (12 hours) Temp Pulse Resp BP BP Pulse Ox 12/23/17 12:20 97.9 F 67 22 H 129/67 95 12/23/17 08:14 98 F 61 14 97/53 L 97 12/23/17 04:00 98.5 F 67 12 111/62 91 L Weight Weight 127.505 kg I&O: 12/22/17 12/23/17 12/24/17 06:59 06:59 06:59 Intake Total 1272 1090 Output Total 8850 7200 Balance -7578 -7410 Result Diagrams: 12/23/17 04:26 12/23/17 04:26 <Lloyd Escobar - Last Filed: 12/23/17 13:21> Phys Exam - Physical Examination Constitutional: NAD HEENT: PERRLA, moist MMs, sclera anicteric Neck: no nodes, no JVD Respiratory: no wheezing, no rales, no rhonchi, clear to auscultation bilateral Cardiovascular: RRR, no significant murmur, no rub Gastrointestinal: soft, non-tender, no distention, positive bowel sounds mildly ttp pannus, improved from yesterday w/o warmth or erythema,mildedema Musculoskeletal: pulses present, edema present (greatly improved from yesterday) Neurological: non-focal, moves all 4 limbs Skin: normal turgor, cap refill <2 seconds Deviation from normal: venous stasis dermatitis b/l LE <Jaguar Hughes - Last Filed: 12/23/17 09:15> Dx/Plan (1) CHF exacerbation Code(s): I50.9 - HEART FAILURE, UNSPECIFIED Status: Acute (2) Diastolic CHF Code(s): I50.30 - UNSPECIFIED DIASTOLIC (CONGESTIVE) HEART FAILURE Status: Chronic (3) KATE (obstructive sleep apnea) Code(s): G47.33 - OBSTRUCTIVE SLEEP APNEA (ADULT) (PEDIATRIC) Status: Acute (4) Hypertension Code(s): I10 - ESSENTIAL (PRIMARY) HYPERTENSION Status: Chronic QualifierTitle: Hypertension type: essential hypertension Qualified Code( s): I10 - Essential (primary) hypertension (5) Hypothyroid Code(s): E03.9 - HYPOTHYROIDISM, UNSPECIFIED Status: Chronic (6) Hypoventilation associated with obesity Code(s): E66.2 - MORBID (SEVERE) OBESITY WITH ALVEOLAR HYPOVENTILATION Status : Chronic (7) Obesity, morbid Code(s): E66.01 - MORBID (SEVERE) OBESITY DUE TO EXCESS CALORIES Status: Chronic (8) Venous stasis Code(s): I87.8 - OTHER SPECIFIED DISORDERS OF VEINS Status: Chronic (9) Cellulitis Code(s): L03.90 - CELLULITIS, UNSPECIFIED Status: Acute QualifierTitle: Site of cellulitis: extremity Site of cellulitis of extremity: lower extremity Laterality: left Qualified Code(s): L03.116 - Cellulitis of left lower limb - Plan Plan: dCHF exacerbation- -continue strict Is/Os and fluid restriction in addition to spirinolactone ( decreased dose to 12.5) and lasix. -Chronic edema with associated venous stasis dermatitis, improved from yesterday. -this is all likely 2/2 medication and diet non-compliance, counseled on importance of medication and diet compliance. -Pt continues to Diurese and is down 14kg since admission. She has symptomattically greatly imprved. Will continue to safety counselor on importance of diet /fluid and medication compliance. -hopefully family meeting today to discuss goals of care going forward -OOB X4 daily. -Lakhwinder d/c tomorrow or later today KATE -pt has a trach and is on cpap at night, continue GERD - protonix Chronic anemia - trend CBC -stable Paroxysmal A. fib - hold anticoagulant for now as pt had a massive GI a few months prior that resulted in prolonged hospital stay and ICU care. Cont plan of care. Cellulitis vs panniculitis: -IV vanc and rocephin, pain is still present; however, improved from yesterday. Likely edema component contributing to pain, but we will cont IV abx for now. -cnt abx, transition to oral abx upon dc Difficult social situation: -case mangement and palliative care consulted for goals of care and help with placement/discharge planning. -palliative care consulted, hopefully family meeting today/tomorrow Dispo: Continue diuresis and monitor strict Is/Os. Clinically, improved from yesterday. CM consulted, likely approaching discharge today/tomorrow. Continue DC planning. <Jaguar Hughes - Last Filed: 12/23/17 09:15> Attending Addendum - Attending Addendum Date/Time: 12/23/17 2409 I personally evaluated the patient and discussed the management with Dr. Hughes I agree with the History, Examination, Assessment and Plan documented above with any addition or exceptions noted below.Impressive diuresis will continue to look into most appropriate outpatient setting for this patient. Note see has DX of diastolic heart failure regard qualification palliative hospice care <Lloyd Escobar - Last Filed: 12/23/17 13:21>
[2017-12-23] MEDS: cefTRIAXone\\ROCEPHIN 1 GM in Sodium Chloride 0.9% 100 ML IVPB SCH (12:21)
[2017-12-23] MEDS: Nystatin Powder 15 GM BOT TOP SCH ×2 (14:26→20:54)
[2017-12-23] MEDS: Potassium Chloride 20 MEQ TAB PO SCH (16:34)
[2017-12-24 04:14] LABS: Anion Gap 9 mmol/L (10-20); BUN (Urea Nitrogen) 18 mg/dL (9.8-20.1); Calc. Creatinine Clearance 149 mL/min (70-130); Calcium 8.4 mg/dL (7.8-10.44); Carbon Dioxide 37 mmol/L (22-29); Chloride 94 mmol/L (98-107); Estimated GFR-MDRD 72; Glucose 76 mg/dL (70-105); Potassium 3.3 mmol/L (3.5-5.1); Sodium 137 mmol/L (136-145)
[2017-12-24] MEDS: Acetaminophen 325 MG TAB PO PRN ×2 (04:19→08:27)
[2017-12-24 04:44] LABS: #Eosinphils 0.2 thou/uL (0.0-0.7); #Lymphocytes 2.2 thou/uL (1.20-3.40); #Monocytes 0.8 thou/uL (0.11-0.59); #Neutrophils 2.3 thou/uL (1.40-6.50); %Basophils 0.8 % (0.0-1.0); %Lymphocytes 39.3 % (21.0-51.0); %Monocytes 14.6 % (0.0-10.0); %Neutrophils 41.3 % (42.0-75.0); Anisocytosis SLIGHT = 6-15 cells (100X) (0-5/hpf); Hemoglobin 10.4 g/dL (12.0-16.0); MDiff Complete? YES; Mean Corpuscular HGB CONC 32.3 g/dL (32.0-36.0); Mean Corpuscular Hemoglobin 32.8 pg (27.0-31.0); Mean Platelet Volume 8.9 fL (7.4-10.4); Ovalocytes SLIGHT = 2-5 cells (100X) (0-1/hpf); PLT Morphology Comment Appears Decreased; Platelet Count 107 thou/uL (130-400); RBC Distribution Width 20.4 % (11.5-14.5); Red Blood Cell (RBC) Count 3.16 mill/uL (4.20-5.40); White Blood Cell (WBC) Count 5.7 thou/uL (4.8-10.8)
[2017-12-24] MEDS: Levothyroxine Sodium 112 MCG TAB PO SCH (05:28)
[2017-12-24] MEDS: Pantoprazole 40 MG GRANULES PACKET PO SCH (08:26)
[2017-12-24] MEDS: buPROPion HCl 100 MG TAB PO SCH ×2 (08:26→15:34)
[2017-12-24] MEDS: Potassium Chloride 20 MEQ TAB PO SCH (08:26)
[2017-12-24] MEDS: Spironolactone 25 MG TAB PO SCH (08:27)
[2017-12-24] MEDS: Docusate Sodium 100 MG/10 ML UDCUP PO SCH (08:28)
[2017-12-24] MEDS: Nystatin Powder 15 GM BOT TOP SCH (08:28)
[2017-12-24] MEDS: Vancomycin HCl 1.25 GM in Sodium Chloride 0.9% 250 ML 250 ML IVPB SCH (08:29)
[2017-12-24] MEDS ORDERED: Potassium Chloride 20 MEQ TAB PO SCH (08:30)
[2017-12-24] MEDS ORDERED: Magnesium Sulfate 4 GM in Sodium Chloride 0.9% 250 ML 250 ML IVPB SCH (09:00)
[2017-12-24] MEDS ORDERED: Furosemide 80 MG TAB PO SCH (09:00)
--- NOTE | 2017-12-24 09:00 | PDOC.FM ---
- Subjective Subjective: No acute events overnight. Pt reports b/l LE pain that isd tender to touch. She has persistent chronic venous stasis changes of her b/l LE that is unchanged from baseline. Otherwise, no fever, chills, sweats, nausea, vomiting, diarrhea. Abdominal pain is persistent but continues to improve with diuresis and abx. Pt admits to dietary non-compliance and admitted to medication non-compliance during this admission. We will have a family meeting today to discuss goals of care. - Objective Vital Signs & Weight: Vital Signs (12 hours) Temp Pulse Resp BP Pulse Ox 12/24/17 07:30 97.7 F 69 18 120/67 92 L 12/24/17 06:52 94 L 12/24/17 04:00 98.2 F 75 18 118/67 95 12/24/17 00:00 75 20 Weight Weight 124.239 kg I&O: 12/23/17 12/24/17 12/25/17 06:59 06:59 06:59 Intake Total 1090 2130 Output Total 7200 5875 Balance -9723 -5074 Result Diagrams: 12/24/17 03:25 12/24/17 03:25 <Jaguar Hughes - Last Filed: 12/24/17 09:06> - Objective Vital Signs & Weight: Vital Signs (12 hours) Temp Pulse Resp BP Pulse Ox 12/24/17 07:30 97.7 F 69 18 120/67 92 L 12/24/17 06:52 94 L 12/24/17 04:00 98.2 F 75 18 118/67 95 12/24/17 00:00 75 20 Weight Weight 124.239 kg I&O: 12/23/17 12/24/17 12/25/17 06:59 06:59 06:59 Intake Total 1090 2130 Output Total 7200 5875 Balance -0856 -9830 Result Diagrams: 12/24/17 03:25 12/24/17 03:25 <Lloyd Escobar - Last Filed: 12/24/17 11:07> Phys Exam - Physical Examination Constitutional: NAD morbidly obese HEENT: PERRLA, sclera anicteric Neck: no nodes, no JVD Respiratory: no wheezing, no rales, no rhonchi coarse breath sounds throughout Cardiovascular: RRR, no significant murmur, no rub Gastrointestinal: soft, non-tender, no distention, positive bowel sounds Musculoskeletal: pulses present, edema present trace edema b/l LE Neurological: non-focal, moves all 4 limbs Deviation from normal: venous stasis dermatitis b/l LE. intertriginous dermatitis vs candidiasis <Jaguar Hughes - Last Filed: 12/24/17 09:06> Dx/Plan (1) CHF exacerbation Code(s): I50.9 - HEART FAILURE, UNSPECIFIED Status: Acute (2) Diastolic CHF Code(s): I50.30 - UNSPECIFIED DIASTOLIC (CONGESTIVE) HEART FAILURE Status: Chronic (3) KATE (obstructive sleep apnea) Code(s): G47.33 - OBSTRUCTIVE SLEEP APNEA (ADULT) (PEDIATRIC) Status: Acute (4) Hypertension Code(s): I10 - ESSENTIAL (PRIMARY) HYPERTENSION Status: Chronic QualifierTitle: Hypertension type: essential hypertension Qualified Code( s): I10 - Essential (primary) hypertension (5) Hypothyroid Code(s): E03.9 - HYPOTHYROIDISM, UNSPECIFIED Status: Chronic (6) Hypoventilation associated with obesity Code(s): E66.2 - MORBID (SEVERE) OBESITY WITH ALVEOLAR HYPOVENTILATION Status : Chronic (7) Obesity, morbid Code(s): E66.01 - MORBID (SEVERE) OBESITY DUE TO EXCESS CALORIES Status: Chronic (8) Venous stasis Code(s): I87.8 - OTHER SPECIFIED DISORDERS OF VEINS Status: Chronic (9) Cellulitis Code(s): L03.90 - CELLULITIS, UNSPECIFIED Status: Acute QualifierTitle: Site of cellulitis: extremity Site of cellulitis of extremity: lower extremity Laterality: left Qualified Code(s): L03.116 - Cellulitis of left lower limb - Plan Plan: dCHF exacerbation- -continue strict Is/Os and fluid restriction in addition to spirinolactone ( decreased dose to 12.5) and lasix. -Chronic edema with associated venous stasis dermatitis, improved from yesterday and continually improving. -this is all likely 2/2 medication and diet non-compliance, counseled on importance of medication and diet compliance. -Pt continues to Diurese and is down 17kg since admission. She has symptomattically greatly improved. Will continue to litigation counsel on importance of diet/fluid and medication compliance. -family meeting today to discuss goals of care and medication and diet compliance -stable for DC to home. -counseled on importance of diet and medication compliance KATE -pt has a trach and is on cpap at night, continue GERD - protonix Chronic anemia - trend CBC -stable -macrocytic check b12 and folate Paroxysmal A. fib - hold anticoagulant for now as pt had a massive GI a few months prior that resulted in prolonged hospital stay and ICU care. Cont plan of care. Cellulitis vs panniculitis: -IV vanc and rocephin, pain is still present; however, improved from yesterday. Likely edema component contributing to pain, but we will cont IV abx for now. -cnt abx, transition to oral abx upon dc Hypokalemia: replace -40mEq bid Hypomagnesemia -replace 4 gm IVPB -ok for dc this afternoon Difficult social situation: -case mangement and palliative care consulted for goals of care and help with placement/discharge planning. -palliative care consulted, hopefully family meeting today/tomorrow Dispo:Switch to home medications and pt stable for DC to home with close OP f/u <Jaguar Hughes - Last Filed: 12/24/17 09:06> Attending Addendum - Attending Addendum Date/Time: 12/24/17 1106 I personally evaluated the patient and discussed the management with Dr. Hughes I agree with the History, Examination, Assessment and Plan documented above with any addition or exceptions noted below.Stable for dismissal continue to address social circumstance with patient and family. <Lloyd Escobar - Last Filed: 12/24/17 11:07>
[2017-12-24 09:09] LABS: Vancomycin, Trough 31.2 ug/mL
[2017-12-24 09:34] LABS: Vitamin B12 Greater than 2000 pg/mL (211-911)
[2017-12-24] MEDS ORDERED: Gabapentin 300 MG CAP PO SCH (11:45)
[2017-12-24] MEDS: cefTRIAXone\\ROCEPHIN 1 GM in Sodium Chloride 0.9% 100 ML IVPB SCH (12:00)
[2017-12-24 17:13] VITALS: BP 121/74; TEMP 97.9
[2017-12-25] MEDS ORDERED: Magnesium Oxide 250 MG TAB PO SCH (09:00)
== END 2017-12-24 16:10 | disposition home health service (06) | DRG 292 ==
LOC: ERS 11:54 → ERHOLD 15:41 → 2NO 19:15
PROVIDERS: ADMIT Family Medicine; ATTEND Family Medicine
DX: I11.0 Hypertensive heart disease with heart failure (principal); E66.2 Morbid (severe) obesity with alveolar hypoventilation; L03.116 Cellulitis of left lower limb; Z68.42 Body mass index [BMI] 45.0-49.9, adult; I50.33 Acute on chronic diastolic (congestive) heart failure; E03.9 Hypothyroidism, unspecified; I87.8 Other specified disorders of veins; Z91.14 Patient's other noncompliance with medication regimen; K21.9 Gastro-esophageal reflux disease without esophagitis; D64.9 Anemia, unspecified; I48.0 Paroxysmal atrial fibrillation; Z79.01 Long term (current) use of anticoagulants; E87.6 Hypokalemia; E83.42 Hypomagnesemia; Z87.891 Personal history of nicotine dependence
CPT/HCPCS: 36415; 36416; 51702; 71045; 80048; 80053; 80202; 81003; 82553; 82607; 82746; 83690; 83735; 83880; 84484; 85025; 93005; 93798; 94640; 96374; 96375; 96376; A4216; G8978-GP-CL; G8978-GP-CM; G8979-GP-CL; G8987-GO-CL; G8988-GO-CJ; J0696; J1940; J2270; J3370; J3475; J7050

== ENCOUNTER 2018-01-18 16:53 | Inpatient (IN) | payer OTHER ==
[2018-01-18] MEDS ORDERED: Acetaminophen 325 MG/10.15 ML UDCUP ONE (17:15)
[2018-01-18 18:01] LABS: #Eosinphils 0.1 thou/uL (0.0-0.7); #Lymphocytes 0.7 thou/uL (1.20-3.40); #Monocytes 0.6 thou/uL (0.11-0.59); #Neutrophils 4.8 thou/uL (1.40-6.50); %Basophils 0.2 % (0.0-1.0); %Eosinophils 1.7 % (0.0-10.0); %Neutrophils 77.1 % (42.0-75.0); Hemoglobin 12.1 g/dL (12.0-16.0); Mean Corpuscular Hemoglobin 33.6 pg (27.0-31.0); Mean Platelet Volume 8.6 fL (7.4-10.4); Platelet Count 107 thou/uL (130-400); RBC Distribution Width 17.6 % (11.5-14.5); Red Blood Cell (RBC) Count 3.59 mill/uL (4.20-5.40); White Blood Cell (WBC) Count 6.3 thou/uL (4.8-10.8)
[2018-01-18 18:23] LABS: ALT (SGPT) 20 U/L (8-55); AST (SGOT) 45 U/L (5-34); Alkaline Phosphatase 281 U/L (40-150); Anion Gap 13 mmol/L (10-20); BUN (Urea Nitrogen) 25 mg/dL (9.8-20.1); Bilirubin, Total 1.4 mg/dL (0.2-1.2); Calc. Creatinine Clearance 0 mL/min (70-130); Calcium 9.3 mg/dL (7.8-10.44); Carbon Dioxide 35 mmol/L (22-29); Chloride 92 mmol/L (98-107); Estimated GFR-MDRD 51; Globulin 5.1 g/dL (2.4-3.5); Glucose 117 mg/dL (70-105); Potassium 3.5 mmol/L (3.5-5.1); Protein, Total 8.1 g/dL (6.0-8.3); Sodium 136 mmol/L (136-145)
[2018-01-18 18:25] LABS: CKMB 1.4 ng/mL (0-6.6)
[2018-01-18] MEDS ORDERED: Ketorolac Tromethamine 30 MG/ML VIAL ONE (18:35)
[2018-01-18 19:16] LABS: Bilirubin Negative (Negative); Blood, Urine Negative (Negative); Clarity CLEAR (Clear); Glucose, Urine (Dipstick) Negative (Negative); Leukocyte Negative (Negative); Nitrite Negative (Negative); Protein, Urine (Dipstick) Negative (Neg-Trace); Specific Gravity, Urine 1.015 (1.002-1.036)
--- NOTE | 2018-01-18 19:34 | RAD ---
RADIOGRAPH CHEST 1 VIEW: Date: 01/18/18 Time: 5:34 p.m. HISTORY: 62-year-old female with cough and fever with dyspnea. COMPARISON: 12/20/17 FINDINGS: Evaluation is limited because of body habitus and hypoinflated lungs. Again noted is the tracheostomy tube. There are diffuse bilateral mild interstitial densities, which appear worse on the current matt dy compared to the previous. This difference may be due to technical differences, because there is sl ight motion artifact on the current study, but this is not certain. IMPRESSION: Mild bilateral pulmonary interstitial densities, questionable for mild pulmonary interstitial edema. This may be slightly worse than 12/20/17. Continued followup is recommended. JD [] POS: HYACINTH
--- NOTE | 2018-01-18 19:54 | PDOC.FPRHP ---
- History of Present Illness Chief Complaint: leg pain History of Present Illness: Resident: Francesca Hebert DO PCP: Hank Hughes DO Patient is a 62yo F with PMH of b/l LE venous stasis and several episodes of cellulitis, KATE/OHS s/p trach, and HFpEF presents to ED with 1 day hx of R inner thigh pain, increased to the point where she is unable to walk. Reports fever 103 at home. Patient also notes foul smell from trach when cleaning and continued mucousy discharge from trach site. She was seen in the clinic last Wednesday where she was given Metolazone for some fluid overload. At that time did not have erythematous area on her leg. She also reports a new wound on her L arce area that started weaping on Wednesday. Denies injury to this site. Patient denies N/V/D, SOB from baseline, orthopnea, cough, abd pain, and urinary sx. ED Course: In the ED she was found to have elevated T to 100.6 and tachycardia. She was given Vancomycin and Cefepime for presumed infection. - Allergies/Adverse Reactions Allergies Allergy/AdvReac Type Severity Reaction Status Date / Time Penicillins Allergy Intermediate Rash Verified 08/01/17 17:31 amoxicillin [Amoxicillin] Allergy Verified 08/01/17 17:31 - Home Medications Medication Instructions Recorded Confirmed Type Aspirin [Adult Aspirin Regimen] 81 mg PO DAILY 30 Days #30 10/09/17 01/18/18 Rx tablet. Ferrous Sulfate 325 mg PO BID 12/20/17 01/18/18 History Furosemide [Lasix] 80 mg PO DAILY 12/20/17 01/18/18 History Levothyroxine Sodium [Levoxyl] 1 tablet PO QAM 12/20/17 01/18/18 History Pantoprazole [Protonix] 40 mg PO DAILY 12/20/17 01/18/18 History buPROPion HCl [Wellbutrin] 100 mg PO BID 12/20/17 01/18/18 History Spironolactone [Aldactone] 12.5 mg PO QAM-WM #30 tab 12/23/17 01/18/18 Rx Gabapentin 300 mg PO BID #60 capsule 12/24/17 01/18/18 Rx Nystatin [Mycostatin Powder] 1 gm TOP TID #1 bot 12/24/17 01/18/18 Rx Potassium Chloride [K-Dur] 20 meq PO DAILY #30 tab 12/24/17 01/18/18 Rx Metolazone [Zaroxolyn] 5 mg PO DAILY 01/18/18 01/18/18 History - History PMHx: KATE/OHS s/p trach HTN HLD OA, bilateral Morbid Obesity MDD pAF Hypothyroidism dCHF COPD Macrocytic Anemia Elevated Liver Enzymes, ?Cirrhosis Chronic venous stasis GERD CKD II Panniculitis PSHx: tracheostomy Allergies NKDA FHx:NA Social: hx of tobacco use, denies Etoh and drug use - Review of Systems General: reports: fever/chills, fatigue. denies: weight/appetite/sleep changes , night sweats Eyes: denies: eye pain ENT: denies: nasal congestion, rhinorrhea Respiratory: denies: cough, congestion, shortness of breath Cardiovascular: reports: edema. denies: chest pain, palpitation Gastrointestinal: denies: nausea, vomiting, diarrhea, constipation, abdominal pain Genitourinary: denies: incontinence, dysuria Skin: reports: lesions (L anterior LE) Musculoskeletal: reports: pain (leg), swelling Neurological: reports: weakness (generalized). denies: numbness, syncope Psychological: denies: anxiety, depression - Vital signs BP: 118/59 HR: 82 RR: 22 Tmax: 100.6 Pox: 95% on 3L trach collar Wt: 134kg - Physical Exam Constitutional: NAD, awake, alert and oriented -Constitutional: morbidly obese HEENT: PERRLA, EOMI, conjunctiva clear, no scleral icterus, grossly normal vision, TM's clear and intact, grossly normal hearing, normal nasal mucosa, MMM , oropharynx clear -Neck: trach in place, white mucous in trach, no foul smell noted, no drainage from the site, no surrounding erythema Heart: normal S1/S2 -Heart: tachycardic, systolic murmur grade 3/6 Lungs: no respiratory distress, good air movement, no wheezing, no retractions -Lungs: bilateral rales, improve with cough Abdomen: soft -Abdomen: tenderness to palpation throughout abdomen, no guarding or rebound, pannus with yeast infection Musculoskeletal: normal structure, normal tone Neurological: no focal deficit, CN II-XII intact -Skin: LLE anterior arce lesion about 1x2cm ulceration with minimal discharge on wound dressing that appears to be purulent, no surrounding erythema. Also has R inner thigh erythema, warmth, and tenderness without induration or fluctuation. chronic venous stasis findings on b/l legs from mid calf down to feet. R great toe with area of gangrene vs hematoma, pulses 2+ in R foot Heme/Lymphatic: no unusual bruising or bleeding, no purpura Psychiatric: normal mood and affect FMR H&P: Results - Labs Result Diagrams: 01/19/18 03:53 01/19/18 03:53 Lab results: WBC 6.3 thou/uL (4.8-10.8) 01/18/18 17:49 Hgb 12.1 g/dL (12.0-16.0) 01/18/18 17:49 Hct 36.5 % (36.0-47.0) 01/18/18 17:49 MCV 102.0 fL (78.0-98.0) H 01/18/18 17:49 Plt Count 107 thou/uL (130-400) L 01/18/18 17:49 Neutrophils % 77.1 % (42.0-75.0) H 01/18/18 17:49 Sodium 136 mmol/L (136-145) 01/18/18 17:49 Potassium 3.5 mmol/L (3.5-5.1) 01/18/18 17:49 Chloride 92 mmol/L (98-107) L 01/18/18 17:49 Carbon Dioxide 35 mmol/L (22-29) H 01/18/18 17:49 BUN 25 mg/dL (9.8-20.1) H 01/18/18 17:49 Creatinine 1.10 mg/dL (0.6-1.1) 01/18/18 17:49 Glucose 117 mg/dL (70-105) H 01/18/18 17:49 Lactic Acid 1.8 mmol/L (0.5-2.2) 01/18/18 17:49 Calcium 9.3 mg/dL (7.8-10.44) 01/18/18 17:49 Total Bilirubin 1.4 mg/dL (0.2-1.2) H 01/18/18 17:49 AST 45 U/L (5-34) H 01/18/18 17:49 ALT 20 U/L (8-55) 01/18/18 17:49 Alkaline Phosphatase 281 U/L (40-150) H 01/18/18 17:49 CK-MB (CK-2) 1.4 ng/mL (0-6.6) 01/18/18 17:49 B-Natriuretic Peptide 148.3 pg/mL (0-100) H 01/18/18 17:49 Serum Total Protein 8.1 g/dL (6.0-8.3) 01/18/18 17:49 Albumin 3.0 g/dL (3.5-5.0) L 01/18/18 17:49 Urine Ketones Negative mg/dL (Negative) 01/18/18 19:12 Urine Blood Negative (Negative) 01/18/18 19:12 Urine Nitrite Negative (Negative) 01/18/18 19:12 Ur Leukocyte Esterase Negative (Negative) 01/18/18 19:12 - Radiology Interpretation Chest x-ray Status: image reviewed by me, report reviewed by me Additional comment: Mild bilateral pulmonary interstitial densities suggestive of possible pulmonary edema, comparable to prior exam FMR H&P: A/P - Problem List (1) Sepsis affecting skin Current Visit: No Status: Acute Code(s): L02.91 - CUTANEOUS ABSCESS, UNSPECIFIED (2) Cellulitis of right lower extremity Current Visit: No Status: Acute Code(s): L03.115 - CELLULITIS OF RIGHT LOWER LIMB (3) Macrocytic anemia Current Visit: No Status: Chronic Code(s): D53.9 - NUTRITIONAL ANEMIA, UNSPECIFIED (4) KATE (obstructive sleep apnea) Current Visit: No Status: Chronic Code(s): G47.33 - OBSTRUCTIVE SLEEP APNEA (ADULT) (PEDIATRIC) (5) Panniculitis Current Visit: No Status: Chronic Code(s): M79.3 - PANNICULITIS, UNSPECIFIED (6) Stasis dermatitis of both legs Current Visit: No Status: Chronic Code(s): I87.2 - VENOUS INSUFFICIENCY ( CHRONIC) (PERIPHERAL) (7) Depression Current Visit: No Status: Chronic Code(s): F32.9 - MAJOR DEPRESSIVE DISORDER , SINGLE EPISODE, UNSPECIFIED Qualifiers: Depression Type: major depressive disorder Major depression recurrence: recurrent Active/Remission status: in full remission Qualified Code(s): F33.42 - Major depressive disorder, recurrent, in full remission (8) Diastolic CHF Current Visit: No Status: Chronic Code(s): I50.30 - UNSPECIFIED DIASTOLIC ( CONGESTIVE) HEART FAILURE (9) Hyperbilirubinemia Current Visit: No Status: Chronic Code(s): E80.6 - OTHER DISORDERS OF BILIRUBIN METABOLISM (10) Hypothyroid Current Visit: No Status: Chronic Code(s): E03.9 - HYPOTHYROIDISM, UNSPECIFIED Qualifiers: (11) Paroxysmal a-fib Current Visit: No Status: Chronic Code(s): I48.0 - PAROXYSMAL ATRIAL FIBRILLATION (12) Thrombocytopenia Current Visit: No Status: Chronic Code(s): D69.6 - THROMBOCYTOPENIA, UNSPECIFIED (13) MALISSA (acute kidney injury) Current Visit: No Status: Acute Code(s): N17.9 - ACUTE KIDNEY FAILURE, UNSPECIFIED (14) GERD (gastroesophageal reflux disease) Current Visit: No Status: Acute Code(s): K21.9 - GASTRO-ESOPHAGEAL REFLUX DISEASE WITHOUT ESOPHAGITIS - Plan sepsis 2/2 to cellulitis- -Patient tachycardic, tachypnic, and fever with skin source. vanc and cefepime started in ED, will continue -wound culture, BCx pending open wound of LLE- - wound care consulted hematoma vs dry gangrene of the R great toe- - wound care, likely hematoma from injury pt reports malodorous sputum- - sputum culture obtained in ED, abx would cover prior species on trach culture isolations MALISSA- - possibly 2/2 to increase in diuretics recently - repeat BMP in am and continue to monitor - renally dose meds chronic venous stasis dermatitis- - improved from previous exams KATE/OHS s/p trach - continue trach care and O2 as needed - duonebs prn dCHF- - currently euvolemic, continue home lasix, spironolactone, and metolazone morbid obesity - encourage ambulation with assist and weight loss htn - continue home medications hld - continue home medications hypothyroidism - continue home medications paroxsysmal afib- - NSR today - apparently no longer on anticoagulation 2/2 to GI bleed recently cirrhosis - listed as diagnosis on previous admissions although unable to determine if biopsy was done or origin of cirrhosis - chronically elevated AST, alk phos and tbili, at baseline - hepatitis studies done within the year and were negative except for hepatitis A Ab chronic resp failure with respiratory alkalosis - Bicarb 35, at baseline pulmonary htn - likely 2/2 long standing KATE/OHS untreated Macrocytic Anemia and Thrombocytopenia - chronic in nature - previously pancytopenic, have discussed possible BM biopsy outpatient although has not been done to my knowledge - WBC normal and RBC normal today - continue to monitor - unsure of etiology DVT ppx-no longer on anticoagulation, given weight over 100 kg will use arixtra for DVT ppx Code status: Full Dispo: likely stay 2 hospital days for IV Abx and cultures to result. FMR H&P: Upper Level - Pertinent history PCP: Dr. Hughes Pt is a 62 yo F with numerous co-morbidities 2/2 to her morbid obesity who is well known to our service who presents with 6 day hx of redness, pain of RLE in the thigh area. Fever at home of 103 and 100.6 in ED. She reports that she saw her PCP at the end of last week who started her on metolazone as she was feeling like she was getting fluid overloaded especially in her abdomen. She also had a open wound appear on her LLE, no trauma reported. She also has what appears to be a hematoma present during her last admission from bumping her R great toe. Her chronic venous stasis in her lower legs actually looks improved. She also reports foul smelling sputum coming from her trachea. - Pertinent findings General: morbid obesity, no resp distress HEENT: dry mm, trach, white/clear phlegm/sputum, mild odor Card: RRR Lungs: mild rhonchi throughout, no wheezing Abd: diffuse mild TTP, panniculitis, LE: cellulitis of R lower thigh, hematoma vs dry gangrene of the R great toe, L calf open wound, doesn't appear grossly infection, venous stasis dermatitis stable/improved - Plan Date/Time: 01/18/181953 Juana Shepherd have evaluated this patient and agree with findings/plan as outlined by Dr. Hebert. Pertinent changes/additions are listed here. 1. sepsis 2/2 to cellulitis-vanc and cefepime started in ED continue, wound culture, BCx obtained 2. open wound of LLE- wound care consulted 3. hematoma vs dry gangrene of the R great toe- wound care, likely hematoma from injury pt reports 4. malodorous sputum- sputum culture optained in ED, abx would cover acc to previous cx, no new infiltrates on exam 5. MALISSA-possibly 2/2 to increase in diuretics recently DVT ppx-no longer on anticoagulation, given weight over 100 kg will use arixtra for DVT ppx chronic issues: chronic venous stasis dermatitis-improved from previous exams KATE/OHS s/p trach dCHF-currently euvolemic, continue home lasix, metolazone morbid obesity htn hld hypothyroidism paroxsysmal afib-apparently no longer on anticoagulation 2/2 to GI bleed recently cirrhosis chronic resp failure pulmonary htn Attending Addendum - Attending Addendum Date/Time: 01/19/181910 I personally evaluated the patient and discussed the management with Dr. Hebert. I agree with the History, Examination, Assessment and Plan documented above with any addition or exceptions noted below.
[2018-01-18] MEDS ORDERED: Cefepime 2 GM VIAL ONE (19:59)
[2018-01-18] MEDS ORDERED: Acetaminophen 325 MG TAB PO PRN (20:48)
[2018-01-18] MEDS ORDERED: Ondansetron ODT 4 MG TAB PO PRN (20:48)
[2018-01-18] MEDS: Docusate 100 MG CAP PO SCH (21:21)
--- NOTE | 2018-01-18 22:28 | PDOC.EVN ---
Event Note - Event Note Event Note: Date/Time: 01/18/184 I personally evaluated the patient and discussed the management with Dr. Hebert and Juanito. I agree with the History, Examination, Assessment and Plan. See H&P.
[2018-01-18] MEDS ORDERED: HYDROcodone/Acetaminophen 7.5/325 mg Tablet PO PRN (22:30)
[2018-01-19] MEDS: traMADol HCl 50 MG TAB PO PRN ×2 (03:15→21:02)
[2018-01-19 04:45] LABS: #Eosinphils 0.1 thou/uL (0.0-0.7); #Lymphocytes 1.5 thou/uL (1.20-3.40); #Monocytes 0.6 thou/uL (0.11-0.59); #Neutrophils 6.4 thou/uL (1.40-6.50); %Basophils 0.2 % (0.0-1.0); %Eosinophils 1.1 % (0.0-10.0); %Lymphocytes 17.6 % (21.0-51.0); %Monocytes 6.7 % (0.0-10.0); %Neutrophils 74.4 % (42.0-75.0); Hemoglobin 10.4 g/dL (12.0-16.0); Mean Corpuscular HGB CONC 33.4 g/dL (32.0-36.0); Mean Corpuscular Hemoglobin 34.4 pg (27.0-31.0); Mean Platelet Volume 9.1 fL (7.4-10.4); Platelet Count 89 thou/uL (130-400); RBC Distribution Width 17.6 % (11.5-14.5); Red Blood Cell (RBC) Count 3.02 mill/uL (4.20-5.40); White Blood Cell (WBC) Count 8.6 thou/uL (4.8-10.8)
[2018-01-19 05:06] LABS: ALT (SGPT) 17 U/L (8-55); AST (SGOT) 38 U/L (5-34); Albumin 2.5 g/dL (3.5-5.0); Alkaline Phosphatase 191 U/L (40-150); Anion Gap 14 mmol/L (10-20); BUN (Urea Nitrogen) 28 mg/dL (9.8-20.1); Bilirubin, Total 1.6 mg/dL (0.2-1.2); Calc. Creatinine Clearance 128 mL/min (70-130); Calcium 8.5 mg/dL (7.8-10.44); Carbon Dioxide 31 mmol/L (22-29); Chloride 96 mmol/L (98-107); Estimated GFR-MDRD 57; Globulin 4.1 g/dL (2.4-3.5); Glucose 94 mg/dL (70-105); Potassium 3.5 mmol/L (3.5-5.1); Protein, Total 6.6 g/dL (6.0-8.3); Sodium 137 mmol/L (136-145)
--- NOTE | 2018-01-19 06:18 | PDOC.FM ---
- Subjective Subjective: Ms. Springer is feeling ok this morning. She reports the pain in her leg is about the same and she feels the redness is the same. She has not noticed any further discharge from L arce wound. Tolerated sandwich without issue last night. - Objective MAR Reviewed: Yes Vital Signs & Weight: Vital Signs (12 hours) Temp Pulse Resp BP Pulse Ox 01/19/18 04:00 99.6 F 84 20 90/54 L 92 L 01/19/18 00:00 98.6 F 83 20 118/61 95 01/18/18 21:45 98.6 F 83 20 95 01/18/18 20:30 99.4 F 82 22 H 118/59 L 95 Weight Weight 134.581 kg Result Diagrams: 01/19/18 03:53 01/19/18 03:53 <Yareli Menjivar - Last Filed: 01/19/18 08:24> - Objective Vital Signs & Weight: Vital Signs (12 hours) Temp Pulse Resp BP Pulse Ox 01/19/18 08:00 99.5 F 77 20 92 L 01/19/18 07:48 92 L 01/19/18 07:41 99.5 F 77 20 116/55 L 92 L 01/19/18 04:00 99.6 F 84 20 90/54 L 92 L 01/19/18 00:00 98.6 F 83 20 118/61 95 Weight Weight 134.581 kg Result Diagrams: 01/19/18 03:53 01/19/18 03:53 <Lloyd Escobar - Last Filed: 01/19/18 10:18> Phys Exam - Physical Examination Constitutional: NAD HEENT: moist MMs Neck: supple tracheostomy with trach collar in place diffuse coarse rhonchi Cardiovascular: RRR, no significant murmur faint heart sounds 2/2 habitus Gastrointestinal: soft, non-tender, no distention, positive bowel sounds chronic venous stasis changes Neurological: non-focal, moves all 4 limbs Psychiatric: normal affect, A&O x 3 Deviation from normal: large patch of erythema on inner R thigh, 1x2 cm lesion on L arce <Yareli Menjivar - Last Filed: 01/19/18 08:24> Dx/Plan (1) MALISSA (acute kidney injury) Code(s): N17.9 - ACUTE KIDNEY FAILURE, UNSPECIFIED Status: Acute (2) Cellulitis of right lower extremity Code(s): L03.115 - CELLULITIS OF RIGHT LOWER LIMB Status: Acute (3) Chronic a-fib Code(s): I48.2 - CHRONIC ATRIAL FIBRILLATION Status: Acute (4) Chronic respiratory failure Code(s): J96.10 - CHRONIC RESPIRATORY FAILURE, UNSP W HYPOXIA OR HYPERCAPNIA Status: Acute (5) Sepsis affecting skin Code(s): L02.91 - CUTANEOUS ABSCESS, UNSPECIFIED Status: Acute (6) Depression Code(s): F32.9 - MAJOR DEPRESSIVE DISORDER, SINGLE EPISODE, UNSPECIFIED Status : Chronic QualifierTitle: Depression Type: major depressive disorder Major depression recurrence: recurrent Active/Remission status: in full remission Qualified Code(s): F33.42 - Major depressive disorder, recurrent, in full remission (7) Diabetes Code(s): E11.9 - TYPE 2 DIABETES MELLITUS WITHOUT COMPLICATIONS Status: Chronic (8) Diastolic CHF Code(s): I50.30 - UNSPECIFIED DIASTOLIC (CONGESTIVE) HEART FAILURE Status: Chronic (9) Hyperlipemia Code(s): E78.5 - HYPERLIPIDEMIA, UNSPECIFIED Status: Chronic QualifierTitle: Hyperlipidemia type: mixed hyperlipidemia Qualified Code( s): E78.2 - Mixed hyperlipidemia (10) Hypertension Code(s): I10 - ESSENTIAL (PRIMARY) HYPERTENSION Status: Chronic QualifierTitle: Hypertension type: essential hypertension Qualified Code( s): I10 - Essential (primary) hypertension (11) Hypothyroid Code(s): E03.9 - HYPOTHYROIDISM, UNSPECIFIED Status: Chronic (12) Hypoventilation associated with obesity Code(s): E66.2 - MORBID (SEVERE) OBESITY WITH ALVEOLAR HYPOVENTILATION Status : Chronic (13) KATE (obstructive sleep apnea) Code(s): G47.33 - OBSTRUCTIVE SLEEP APNEA (ADULT) (PEDIATRIC) Status: Chronic (14) Paroxysmal a-fib Code(s): I48.0 - PAROXYSMAL ATRIAL FIBRILLATION Status: Chronic (15) Stasis dermatitis of both legs Code(s): I87.2 - VENOUS INSUFFICIENCY (CHRONIC) (PERIPHERAL) Status: Chronic - Plan Plan: 62 yo F with numerous medical comorbidities here with sepsis 2/2 cellulitis 1. Sepsis 2/2 cellulitis - Patient tachycardic, tachypnic, and fever with skin source. Vanc and cefepime started in ED, will continue - Wound culture, BCx pending 2. Open wound of LLE - Wound care consulted, appreciate assistance 3. Hematoma vs dry gangrene of the R great toe - Appreciate wound care assistance, likely hematoma from injury pt reports 4. Malodorous sputum - Sputum culture obtained in ED, abx would cover prior species on trach culture isolations 5. MALISSA - possibly 2/2 to increase in diuretics recently - repeat BMP in am and continue to monitor - renally dose meds 6. Chronic venous stasis dermatitis - Stable 7. KATE/OHS s/p trach - continue trach care and O2 as needed - duonebs prn 8. dCHF - currently euvolemic, continue home lasix, spironolactone, and metolazone 9. Morbid obesity - encourage ambulation with assist and weight loss 10. HTN - continue home medications 11. HLD - continue home medications 12. Hypothyroidism - continue home medications 13. Paroxsysmal afib - no longer on anticoagulation 2/2 to GI bleed recently 14. Cirrhosis - listed as diagnosis on previous admissions although unable to determine if biopsy was done or origin of cirrhosis - chronically elevated AST, alk phos and tbili, at baseline - hepatitis studies done within the year and were negative except for hepatitis A Ab 15. Chronic resp failure with respiratory alkalosis - Bicarb 35, at baseline 16. Pulmonary htn - likely 2/2 long standing KATE/OHS untreated 17. Macrocytic Anemia and Thrombocytopenia - chronic in nature - previously pancytopenic, have discussed possible BM biopsy outpatient - WBC normal and RBC normal today - continue to monitor - unsure of etiology DVT ppx-no longer on anticoagulation, given weight over 100 kg will use arixtra for DVT ppx <Yareli Menjivar - Last Filed: 01/19/18 08:24> Attending Addendum - Attending Addendum Date/Time: 01/19/18 1010 I personally evaluated the patient and discussed the management with Dr. Menjivar I agree with the History, Examination, Assessment and Plan documented above with any addition or exceptions noted below.Well known patient to our service with frequent re-admissions. Patient has been reluctant/resistant to change her level of care in outpatient setting. Will define/srinivas level of erythema from cellulitus to document improvement. Patient stable to transfer off telemetry to medical floor on anticoagulation with notable PMHX Paroxsymal Atrial Fibrillation patient in NSR since admit. Chronic stasis dermatitis Lower extremities and abdomen. <Lloyd Escobar - Last Filed: 01/19/18 10:18>
[2018-01-19] MEDS: Levothyroxine Sodium 112 MCG TAB PO SCH (06:27)
[2018-01-19] MEDS: Fondaparinux Sodium 2.5 MG/0.5 ML SYRINGE SC SCH (06:27)
[2018-01-19] MEDS: Aspirin 81 mg Enteric Coated Tablet PO SCH (08:27)
[2018-01-19] MEDS: Potassium Chloride 20 MEQ TAB PO SCH (08:27)
[2018-01-19] MEDS: Furosemide 40 MG TAB PO SCH (08:27)
[2018-01-19] MEDS: buPROPion HCl 100 MG TAB PO SCH ×2 (08:27→21:02)
[2018-01-19] MEDS: Docusate 100 MG CAP PO SCH ×2 (08:27→21:05)
[2018-01-19] MEDS: Gabapentin 300 MG CAP PO SCH ×2 (08:28→21:02)
[2018-01-19] MEDS: Spironolactone 25 MG TAB PO SCH (08:28)
[2018-01-19] MEDS: Metolazone 5 MG TAB PO SCH (08:28)
[2018-01-19] MEDS: Ferrous Sulfate 325 MG TAB PO SCH ×2 (08:28→21:02)
[2018-01-19] MEDS: Nystatin Powder 15 GM BOT TOP SCH ×3 (10:01→21:05)
[2018-01-19] MEDS: Cefepime 2 GM in Sodium Chloride 0.9% 100 ML IVPB SCH (21:03)
[2018-01-20] MEDS: traMADol HCl 50 MG TAB PO PRN ×2 (02:30→14:23)
[2018-01-20 05:20] LABS: #Eosinphils 0.2 thou/uL (0.0-0.7); #Lymphocytes 1.5 thou/uL (1.20-3.40); #Neutrophils 4.9 thou/uL (1.40-6.50); %Basophils 0.4 % (0.0-1.0); %Eosinophils 3.2 % (0.0-10.0); %Lymphocytes 19.5 % (21.0-51.0); %Monocytes 13.4 % (0.0-10.0); %Neutrophils 63.4 % (42.0-75.0); Hemoglobin 10.4 g/dL (12.0-16.0); Mean Corpuscular HGB CONC 33.2 g/dL (32.0-36.0); Mean Corpuscular Hemoglobin 34.2 pg (27.0-31.0); Mean Platelet Volume 8.4 fL (7.4-10.4); Platelet Count 90 thou/uL (130-400); RBC Distribution Width 17.1 % (11.5-14.5); Red Blood Cell (RBC) Count 3.03 mill/uL (4.20-5.40); White Blood Cell (WBC) Count 7.6 thou/uL (4.8-10.8)
[2018-01-20 05:42] LABS: ALT (SGPT) 15 U/L (8-55); AST (SGOT) 32 U/L (5-34); Albumin 2.4 g/dL (3.5-5.0); Alkaline Phosphatase 181 U/L (40-150); Anion Gap 11 mmol/L (10-20); BUN (Urea Nitrogen) 26 mg/dL (9.8-20.1); Bilirubin, Total 1.9 mg/dL (0.2-1.2); Calc. Creatinine Clearance 141 mL/min (70-130); Calcium 8.2 mg/dL (7.8-10.44); Carbon Dioxide 35 mmol/L (22-29); Chloride 94 mmol/L (98-107); Estimated GFR-MDRD 64; Globulin 4.1 g/dL (2.4-3.5); Glucose 112 mg/dL (70-105); Potassium 3.1 mmol/L (3.5-5.1); Protein, Total 6.5 g/dL (6.0-8.3); Sodium 137 mmol/L (136-145)
[2018-01-20] MEDS: Levothyroxine Sodium 112 MCG TAB PO SCH (05:45)
[2018-01-20] MEDS: Fondaparinux Sodium 2.5 MG/0.5 ML SYRINGE SC SCH (05:45)
--- NOTE | 2018-01-20 06:59 | PDOC.FM ---
- Subjective Subjective: Ms. Springer is still experiencing BL leg pain today. She states that it feels the same as yesterday and is painful to touch. She is also complaining of throat pain and discomfort where her new tracheostomy tube is. The sputum production has slowed a little. During family meeting that took place between myself, Concepción (palliative care), creasing and cutting press feeder, patient, patient's son and , the family agreed that hospice services would be helpful to them as her son is her primary caregiver and at 19 still has 2 years of high school and college. He is working over the summer to help pay for things. They report that she is not getting any assistance with tracheostomy or wound care with current home health services. The family could use a lot of help with the above care in addition to medication organization, compliance, as well as palliative and comfort services with patient's chronic pain related to venous stasis, obesity and recurrent infections. The family has agreed to meet with hospice medical sales representative tomorrow evening at 7pm if she is still inpatient. - Objective MAR Reviewed: Yes Vital Signs & Weight: Vital Signs (12 hours) Temp Pulse Resp BP Pulse Ox 01/20/18 06:15 98.6 F 75 22 H 118/66 93 L 01/20/18 06:08 93 L 01/20/18 01:05 98.4 F 76 22 H 102/56 L 95 01/19/18 20:00 98.9 F 74 22 H 121/70 99 01/19/18 19:10 98.9 F 74 22 H 99 Weight Admit Weight 134.263 kg Weight 134.309 kg I&O: 01/18/18 01/19/18 01/20/18 06:59 06:59 06:59 Intake Total 1230 Balance 1230 Result Diagrams: 01/20/18 04:25 01/20/18 04:25 <Yareli Menjivar - Last Filed: 01/20/18 11:26> - Objective Vital Signs & Weight: Vital Signs (12 hours) Temp Pulse Resp BP Pulse Ox 01/20/18 07:30 98.8 F 77 16 99/59 L 93 L 01/20/18 06:15 98.6 F 75 22 H 118/66 93 L 01/20/18 06:08 93 L 01/20/18 01:05 98.4 F 76 22 H 102/56 L 95 Weight Admit Weight 134.263 kg Weight 134.309 kg I&O: 01/19/18 01/20/18 01/21/18 06:59 06:59 06:59 Intake Total 1230 Balance 1230 Result Diagrams: 01/20/18 04:25 01/20/18 04:25 <Darius Gill R - Last Filed: 01/20/18 12:19> Phys Exam - Physical Examination appears uncomfortable HEENT: moist MMs Neck: supple tracheostomy tube in place scattered rhonchi BL Cardiovascular: RRR difficult to auscultate over rhonchi Gastrointestinal: soft, non-tender, no distention, positive bowel sounds edema BL LE, does not tolerate exam Neurological: non-focal, moves all 4 limbs Psychiatric: normal affect, A&O x 3 Deviation from normal: erythema receeding from markings on BL LE, chronic venous stasis changes -: scab on R great toe <Yareli Menjivar - Last Filed: 01/20/18 11:26> Dx/Plan (1) MALISSA (acute kidney injury) Code(s): N17.9 - ACUTE KIDNEY FAILURE, UNSPECIFIED Status: Acute (2) Cellulitis of right lower extremity Code(s): L03.115 - CELLULITIS OF RIGHT LOWER LIMB Status: Acute (3) Chronic a-fib Code(s): I48.2 - CHRONIC ATRIAL FIBRILLATION Status: Acute (4) Chronic respiratory failure Code(s): J96.10 - CHRONIC RESPIRATORY FAILURE, UNSP W HYPOXIA OR HYPERCAPNIA Status: Acute (5) Sepsis affecting skin Code(s): L02.91 - CUTANEOUS ABSCESS, UNSPECIFIED Status: Acute (6) Depression Code(s): F32.9 - MAJOR DEPRESSIVE DISORDER, SINGLE EPISODE, UNSPECIFIED Status : Chronic QualifierTitle: Depression Type: major depressive disorder Major depression recurrence: recurrent Active/Remission status: in full remission Qualified Code(s): F33.42 - Major depressive disorder, recurrent, in full remission (7) Diabetes Code(s): E11.9 - TYPE 2 DIABETES MELLITUS WITHOUT COMPLICATIONS Status: Chronic (8) Diastolic CHF Code(s): I50.30 - UNSPECIFIED DIASTOLIC (CONGESTIVE) HEART FAILURE Status: Chronic (9) Hyperlipemia Code(s): E78.5 - HYPERLIPIDEMIA, UNSPECIFIED Status: Chronic QualifierTitle: Hyperlipidemia type: mixed hyperlipidemia Qualified Code( s): E78.2 - Mixed hyperlipidemia (10) Hypertension Code(s): I10 - ESSENTIAL (PRIMARY) HYPERTENSION Status: Chronic QualifierTitle: Hypertension type: essential hypertension Qualified Code( s): I10 - Essential (primary) hypertension (11) Hypothyroid Code(s): E03.9 - HYPOTHYROIDISM, UNSPECIFIED Status: Chronic (12) Hypoventilation associated with obesity Code(s): E66.2 - MORBID (SEVERE) OBESITY WITH ALVEOLAR HYPOVENTILATION Status : Chronic (13) KATE (obstructive sleep apnea) Code(s): G47.33 - OBSTRUCTIVE SLEEP APNEA (ADULT) (PEDIATRIC) Status: Chronic (14) Paroxysmal a-fib Code(s): I48.0 - PAROXYSMAL ATRIAL FIBRILLATION Status: Chronic (15) Stasis dermatitis of both legs Code(s): I87.2 - VENOUS INSUFFICIENCY (CHRONIC) (PERIPHERAL) Status: Chronic - Plan Plan: 62 yo F with numerous medical comorbidities here with sepsis 2/2 cellulitis 1. Sepsis 2/2 cellulitis - Patient initially tachycardic, tachypnic, and fever with skin source. Vanc and cefepime started in ED, will continue - Wound culture, BCx pending - UCx and sputum culture growing gm neg rods (urine e. coli) 2. Open wound of LLE - Wound care consulted, appreciate assistance 3. Hematoma vs dry gangrene vs scab of the R great toe - Appreciate wound care assistance, likely scab from injury pt reports hitting her toe on last admission - Appears improved from prior photos, good cap refill, no e/o superimposed infection such as expanding erythema 4. Malodorous sputum - Sputum culture obtained in ED, abx would cover prior species on trach culture isolations - Gram neg rods 5. MALISSA - possibly 2/2 to increase in diuretics recently - improved - continue to monitor - renally dose meds 6. Chronic venous stasis dermatitis - Stable 7. KATE/OHS s/p trach - continue trach care and O2 as needed - duonebs prn - recent tracheosotmy change per Dr. Brown 8. dCHF - currently euvolemic, continue home lasix, spironolactone, and metolazone 9. Morbid obesity - encourage ambulation with assist and weight loss 10. HTN - continue home medications 11. HLD - continue home medications 12. Hypothyroidism - continue home medications 13. Paroxsysmal afib - no longer on anticoagulation 2/2 to GI bleed recently - NSR through tele monitors earlier this admission 14. Cirrhosis - listed as diagnosis on previous admissions although unable to determine if biopsy was done or origin of cirrhosis - chronically elevated AST, alk phos and tbili, at baseline - hepatitis studies done within the year and were negative except for hepatitis A Ab 15. Chronic resp failure with respiratory alkalosis - Bicarb 35, at baseline 16. Pulmonary htn - likely 2/2 long standing KATE/OHS untreated 17. Macrocytic Anemia and Thrombocytopenia - chronic in nature - previously pancytopenic, have discussed possible BM biopsy outpatient - WBC normal and RBC normal today - continue to monitor - unsure of etiology DVT ppx-no longer on anticoagulation, given weight over 100 kg will use arixtra for DVT ppx Dispo: Plans to sign POA and advanced directives today. Hospice meeting arranged for tomorrow evening. Will continue IV abx as above. <Yareli Menjivar - Last Filed: 01/20/18 11:26> Attending Addendum - Attending Addendum Date/Time: 01/20/18 1216 I personally evaluated the patient and discussed the management with Dr. Menjivar. I agree with the History, Examination, Assessment and Plan documented above with any addition or exceptions noted below. Patient admitted for cellulitis and sepsis. Her sepsis syndrome has resolved, and she continues on abx for cellulitis. Areas of erythema are receding from the srinivas areas and she has had normal WBC and been afebrile. Continue IV abx for now. I do not suspect that her tracheal secretions are infected, as she frequently complains of secretions and culture overall showing skin roberth and respiratory roberth. I do not suspect dry gangrene on her toe as good pulses and cap refill <2 seconds. This is likely just moderate scabbing from her previous injury, and when compared to previous images this looks better (see wound care images previous hospitalization.) Family meeting this morning and patient has decided to pursue palliative care but remain full code, and wishes to return home. Will coordinate to make that happen hopefully in the next 2-3 days. <Darius Gill R - Last Filed: 01/20/18 12:19>
[2018-01-20] MEDS: Furosemide 40 MG TAB PO SCH (09:53)
[2018-01-20] MEDS: Ferrous Sulfate 325 MG TAB PO SCH ×2 (09:54→20:56)
[2018-01-20] MEDS: Potassium Chloride 20 MEQ TAB PO SCH (09:55)
[2018-01-20] MEDS: Spironolactone 25 MG TAB PO SCH (09:55)
[2018-01-20] MEDS: Metolazone 5 MG TAB PO SCH (09:55)
[2018-01-20] MEDS: Gabapentin 300 MG CAP PO SCH ×2 (09:56→20:56)
[2018-01-20] MEDS: Aspirin 81 mg Enteric Coated Tablet PO SCH (09:56)
[2018-01-20] MEDS: Docusate 100 MG CAP PO SCH ×2 (09:56→20:56)
[2018-01-20] MEDS: buPROPion HCl 100 MG TAB PO SCH ×2 (09:56→21:00)
[2018-01-20] MEDS: Nystatin Powder 15 GM BOT TOP SCH ×3 (09:57→20:56)
[2018-01-20 19:49] LABS: Vancomycin, Trough 13.8 ug/mL
[2018-01-20] MEDS: Cefepime 2 GM in Sodium Chloride 0.9% 100 ML IVPB SCH (20:55)
[2018-01-20] MEDS ORDERED: Vancomycin HCl 2.5 GM in Sodium Chloride 0.9% 500 ML IVPB SCH (21:00)
[2018-01-21 05:08] LABS: ALT (SGPT) 14 U/L (8-55); AST (SGOT) 30 U/L (5-34); Albumin 2.5 g/dL (3.5-5.0); Alkaline Phosphatase 183 U/L (40-150); BUN (Urea Nitrogen) 21 mg/dL (9.8-20.1); Bilirubin, Total 1.8 mg/dL (0.2-1.2); Calc. Creatinine Clearance 151 mL/min (70-130); Calcium 8.4 mg/dL (7.8-10.44); Estimated GFR-MDRD 69; Globulin 4.6 g/dL (2.4-3.5); Glucose 80 mg/dL (70-105); Protein, Total 7.1 g/dL (6.0-8.3)
[2018-01-21 05:17] LABS: Anion Gap 16 mmol/L (10-20); Carbon Dioxide 32 mmol/L (22-29); Chloride 91 mmol/L (98-107); Potassium 3.2 mmol/L (3.5-5.1); Sodium 136 mmol/L (136-145)
[2018-01-21] MEDS: Levothyroxine Sodium 112 MCG TAB PO SCH (05:58)
[2018-01-21 06:17] LABS: Anisocytosis SLIGHT = 6-15 cells (100X) (0-5/hpf); Band 6 % (5-11); Eosinophils 3 % (0-10); Hemoglobin 10.8 g/dL (12.0-16.0); Lymphocytes 23 % (21-51); MDiff Complete? YES; Macrocytosis SLIGHT = 6-15 cells (100X) (0-5/hpf); Mean Corpuscular HGB CONC 33.1 g/dL (32.0-36.0); Mean Corpuscular Hemoglobin 34.6 pg (27.0-31.0); Mean Platelet Volume 8.7 fL (7.4-10.4); Monocytes 12 % (0-10); Neutrophil 56 % (42-75); PLT Morphology Comment Appears Decreased; Platelet Count 95 thou/uL (130-400); RBC Distribution Width 16.9 % (11.5-14.5); Red Blood Cell (RBC) Count 3.14 mill/uL (4.20-5.40); White Blood Cell (WBC) Count 6.3 thou/uL (4.8-10.8)
--- NOTE | 2018-01-21 06:50 | PDOC.FM ---
- Subjective Subjective: Ms. Springer is feeling overall much improved this morning. Her only complaint is a mild R sided headache. She states her legs are feeling better, label fuser tender to the touch, and her sputum production has slowed markedly. She is agreeable to hospice discussion this evening. She clarified that she and her are still , though . - Objective MAR Reviewed: Yes Vital Signs & Weight: Vital Signs (12 hours) Temp Pulse Resp BP Pulse Ox 01/21/18 06:00 94 L 01/20/18 20:00 98.1 F 70 22 H 116/65 92 L Weight Admit Weight 134.263 kg Weight 134.348 kg I&O: 01/19/18 01/20/18 01/21/18 06:59 06:59 06:59 Intake Total 1230 1600 Output Total 1200 Balance 1230 400 Result Diagrams: 01/21/18 04:19 01/21/18 04:19 <Yareli Menjivar E - Last Filed: 01/21/18 10:37> - Objective Vital Signs & Weight: Vital Signs (12 hours) Temp Pulse Resp BP Pulse Ox 01/21/18 07:06 98.1 F 73 18 116/73 01/21/18 06:00 94 L Weight Admit Weight 134.263 kg Weight 134.348 kg I&O: 01/20/18 01/21/18 01/22/18 06:59 06:59 06:59 Intake Total 1230 1600 Output Total 1200 Balance 1230 400 Result Diagrams: 01/21/18 04:19 01/21/18 04:19 <Darius Gill R - Last Filed: 01/21/18 11:11> Phys Exam - Physical Examination Constitutional: NAD HEENT: moist MMs, sclera anicteric Neck: supple tracheostomy in place, no visible sputum at present scattered rhonchi BL, overall improved Cardiovascular: RRR heart sounds distant Gastrointestinal: soft, non-tender, no distention, positive bowel sounds edema in BL LE but does not tolerate exam for pitting Neurological: non-focal, moves all 4 limbs Psychiatric: normal affect, A&O x 3 Deviation from normal: erythema in BL LE receeding, stable scab on R great toe <Yareli Menjivar E - Last Filed: 01/21/18 10:37> Dx/Plan (1) MALISSA (acute kidney injury) Code(s): N17.9 - ACUTE KIDNEY FAILURE, UNSPECIFIED Status: Acute (2) Cellulitis of right lower extremity Code(s): L03.115 - CELLULITIS OF RIGHT LOWER LIMB Status: Acute (3) Chronic a-fib Code(s): I48.2 - CHRONIC ATRIAL FIBRILLATION Status: Acute (4) Chronic respiratory failure Code(s): J96.10 - CHRONIC RESPIRATORY FAILURE, UNSP W HYPOXIA OR HYPERCAPNIA Status: Acute (5) Sepsis affecting skin Code(s): L02.91 - CUTANEOUS ABSCESS, UNSPECIFIED Status: Acute (6) Depression Code(s): F32.9 - MAJOR DEPRESSIVE DISORDER, SINGLE EPISODE, UNSPECIFIED Status : Chronic QualifierTitle: Depression Type: major depressive disorder Major depression recurrence: recurrent Active/Remission status: in full remission Qualified Code(s): F33.42 - Major depressive disorder, recurrent, in full remission (7) Diabetes Code(s): E11.9 - TYPE 2 DIABETES MELLITUS WITHOUT COMPLICATIONS Status: Chronic (8) Diastolic CHF Code(s): I50.30 - UNSPECIFIED DIASTOLIC (CONGESTIVE) HEART FAILURE Status: Chronic (9) Hyperlipemia Code(s): E78.5 - HYPERLIPIDEMIA, UNSPECIFIED Status: Chronic QualifierTitle: Hyperlipidemia type: mixed hyperlipidemia Qualified Code( s): E78.2 - Mixed hyperlipidemia (10) Hypertension Code(s): I10 - ESSENTIAL (PRIMARY) HYPERTENSION Status: Chronic QualifierTitle: Hypertension type: essential hypertension Qualified Code( s): I10 - Essential (primary) hypertension (11) Hypothyroid Code(s): E03.9 - HYPOTHYROIDISM, UNSPECIFIED Status: Chronic (12) Hypoventilation associated with obesity Code(s): E66.2 - MORBID (SEVERE) OBESITY WITH ALVEOLAR HYPOVENTILATION Status : Chronic (13) KATE (obstructive sleep apnea) Code(s): G47.33 - OBSTRUCTIVE SLEEP APNEA (ADULT) (PEDIATRIC) Status: Chronic (14) Paroxysmal a-fib Code(s): I48.0 - PAROXYSMAL ATRIAL FIBRILLATION Status: Chronic (15) Stasis dermatitis of both legs Code(s): I87.2 - VENOUS INSUFFICIENCY (CHRONIC) (PERIPHERAL) Status: Chronic - Plan Plan: 62 yo F with numerous medical comorbidities here with sepsis 2/2 cellulitis 1. Sepsis 2/2 cellulitis - Patient initially tachycardic, tachypneic, and fever with skin source. Vanc and cefepime started in ED, will continue - Wound culture no result, BCx negative to date - UCx e-coli (25-50 cfu) without symptoms, and sputum culture growing gm neg rods and normal respiratory and skin roberth - Will transition to PO bactrim in anticipation of discharge today 2. Open wound of LLE - Wound care consulted, appreciate assistance - Stable and will plan for wound care outpatient (preferably with hospice agency ) 3. Hematoma vs dry gangrene vs scab of the R great toe - Appreciate wound care assistance, likely scab from injury pt reports hitting her toe on last admission - Appears improved from prior photos, good cap refill, no e/o superimposed infection such as expanding erythema 4. Malodorous sputum - Sputum culture obtained in ED, abx would cover prior species on trach culture isolations - Likely normal respiratory roberth predominately from culture - Markedly improved, minimal today 5. MALISSA, resolved - possibly 2/2 to increase in diuretics recently - continue to monitor - renally dose meds 6. Chronic venous stasis dermatitis - Stable 7. KATE/OHS s/p trach - continue trach care and O2 as needed - duonebs prn - recent tracheosotmy change per Dr. Brown - Assistance with hospice agency with trach care and cleaning 8. dCHF - currently euvolemic, continue home lasix, spironolactone, and metolazone - continue K supplementation 9. Morbid obesity - encourage ambulation with assist and weight loss 10. HTN - continue home medications 11. HLD - continue home medications 12. Hypothyroidism - continue home medications 13. Paroxsysmal afib - no longer on anticoagulation 2/2 to GI bleed recently - NSR through tele monitors earlier this admission 14. Cirrhosis - listed as diagnosis on previous admissions although unable to determine if biopsy was done or origin of cirrhosis - chronically elevated AST, alk phos and tbili, at baseline - hepatitis studies done within the year and were negative except for hepatitis A Ab 15. Chronic resp failure with respiratory alkalosis - At baseline 16. Pulmonary htn - likely 2/2 long standing KATE/OHS untreated 17. Macrocytic Anemia and Thrombocytopenia - chronic in nature - previously pancytopenic, have discussed possible BM biopsy outpatient - stable - continue any outpatient plan for management - continue to monitor - unsure of etiology 18. Hypokalemia - Repletion daily and additional 40 mEq today - Will change Metalozone to MWF DVT ppx-no longer on anticoagulation, changed to lovenox today Dispo: POA and advanced directives signed yesterday. Continues to desire full code. Hospice meeting has already taken place and [facility] will assume care at home. Will plan for D/C today on PO bactrim. <Yareli Menjivar E - Last Filed: 01/21/18 10:37> Attending Addendum - Attending Addendum Date/Time: 01/21/18 9075 I personally evaluated the patient and discussed the management with Dr. Menjivar. I agree with the History, Examination, Assessment and Plan documented above with any addition or exceptions noted below. Patient cellulitis improved, and her tracheal secretions have decreased. Labs overall stable, and no evidence of systemic infection. She has been accepted for hospice/palliative care this afternoon, and we will be discharging her home to complete course of oral therapy. <Darius Gill R - Last Filed: 01/21/18 11:11>
[2018-01-21] MEDS ORDERED: Potassium Chloride 20 MEQ TAB PO SCH (07:00)
[2018-01-21] MEDS: Gabapentin 300 MG CAP PO SCH (08:36)
[2018-01-21] MEDS: Furosemide 40 MG TAB PO SCH (08:36)
[2018-01-21] MEDS: Ferrous Sulfate 325 MG TAB PO SCH (08:36)
[2018-01-21] MEDS: Aspirin 81 mg Enteric Coated Tablet PO SCH (08:36)
[2018-01-21] MEDS: Docusate 100 MG CAP PO SCH (08:36)
[2018-01-21] MEDS: buPROPion HCl 100 MG TAB PO SCH (08:37)
[2018-01-21] MEDS: Spironolactone 25 MG TAB PO SCH (08:37)
[2018-01-21] MEDS: Metolazone 5 MG TAB PO SCH ×2 (08:40→09:50)
[2018-01-21] MEDS: Nystatin Powder 15 GM BOT TOP SCH ×2 (08:43→14:48)
[2018-01-21] MEDS ORDERED: Enoxaparin Sodium 40 MG/0.4 ML SYRINGE SC SCH (09:00)
[2018-01-21 09:31] VITALS: BMI 52.4
[2018-01-21] MEDS: Potassium Chloride 20 MEQ TAB PO SCH (09:49)
[2018-01-21] MEDS: traMADol HCl 50 MG TAB PO PRN (11:22)
--- NOTE | 2018-01-21 12:34 | DIS-2 ---
DATE OF ADMISSION: 01/18/2018 DATE OF DISCHARGE: 01/21/2018 ADMITTING ATTENDING: Ho Villalobos M.D. DISCHARGE ATTENDING: Darius Gill MD CONSULTS: Palliative Care. PROCEDURES: Chest x-ray (01/18/2018): Mild bilateral pulmonary interstitial densities, questionable ____ from pulmonary interstitial edema, is slightly worse than 12/20/2017. Continued follow up is r ecommended. PRIMARY DIAGNOSES: Sepsis secondary to lower extremity cellulitis. SECONDARY DIAGNOSES: 1. Paroxysmal atrial fibrillation. 2. Acute kidney injury, resolved. 3. Chronic respiratory failure. 4. Depression. 5. Diabetes. 6. Diastolic congestive heart failure. 7. Hyperlipidemia. 8. Hypertension. 9. Hypothyroidism. 10. Hypoventilation associated obesity. 11. Obstructive sleep apnea. 12. Stasis dermatitis of both legs. DISCHARGE MEDICATIONS: 1. Acetaminophen 50 mg p.o. q.4 hours p.r.n. 2. Bactrim double strength 1 tab p.o. b.i.d. for 6 days. 3. Tramadol 50 mg p.o. q.6 hours p.r.n. pain. 4. Aspirin 81 mg p.o. daily. 5. Ferrous sulfate 325 mg p.o. b.i.d. 6. Protonix 40 mg p.o. b.i.d. 7. Wellbutrin 100 mg p.o. b.i.d. 8. Levothyroxine 112 mcg p.o. 0600. 9. ____ 80 mg p.o. b.i.d. 10. Spironolactone 25 mg p.o. q.a.m. 11. Nystatin apply topically t.i.d. to affected areas. 12. Potassium chloride 20 mEq p.o. daily. 13. Gabapentin 300 mg p.o. b.i.d. 14. Citalopram 5 mg p.o. on Wednesday, Wednesday and Wednesday. HISTORY OF PRESENT ILLNESS AND HOSPITAL COURSE: Ms. Springer was admitted to the hospital for sepsis secondary to lower extremity cellulitis. She was started on IV antibiotics and steadily made improve ment from a cellulitis standpoint. However, the patient's noted recurrent admissions and ongoing dis cussions with palliative care prompted an additional Palliative Care consult. At that time, an exten sive family meeting in coordination with [facility] was arranged and the patient and family are agreeable to discharge on hospice with additional resources provided through that venue. T he patient is desperately in need of assistance with home health care including trach maintenance, PE G tube maintenance, wound care, and polypharmacy medication administration. At this time, her sepsis has resolved and her cellulitis has continued to improve. She had growth of gram negative rods in b oth her urine, and sputum culture, however, these were thought to be mostly mixed respiratory roberth a s well as possible chronic colonization with Escherichia coli given the low colony count in her urine culture. Therefore, at this time she is being discharged on antibiotics for cellulitis after being on broad spectrum antibiotics for 4 days while in house. The patient's other medical conditions cherise ined stable throughout the hospitalization. Of note, the patient is not currently on diabetes medica tion due to intermittent intolerance and likely polypharmacy. However, her blood glucose throughout this hospitalization remained in the normal 2 prediabetes range. This should be followed up outpatie nt. The patient also had borderline hypokalemia while in house and is on ongoing 20 mEq daily, howev er, with a short course of Bactrim, this should also be monitored in the outpatient setting. At this time, she is stable on her home O2 trach collar requirements and does not have any complaints. DISPOSITION: Stable to discharge with home hospice. DISCHARGE INSTRUCTIONS: 1. Location: Home with home hospice including wound care, PEG and trach care and medication assista nce as well as PT, OT, and speech therapy. 2. Diet: Heart healthy and consistent carbohydrate diet with an 18 kilocalorie and 1800 mL fluid re striction were recommended with pureed nectar thick consistency. 3. Activity: As tolerated with hopeful improvement in function with PT and OT. 4. Followup: As determined by home hospice. The patient's primary care physician is Dr. Hank hernández at [facility] and follow up should be arranged for him on a p.r.n. basis, however, within 1 week is recommended upon hospital discharge.
[2018-01-21 17:19] VITALS: BP 122/63; TEMP 98.8
== END 2018-01-21 17:02 | disposition hospice, home (50) | DRG 872 ==
LOC: ERS 16:53 → 2NO 19:31 → T4-B 01-19 12:22
PROVIDERS: ADMIT Family Medicine; ATTEND Family Medicine
DX: A41.9 Sepsis, unspecified organism (principal); L03.116 Cellulitis of left lower limb; L03.115 Cellulitis of right lower limb; N17.9 Acute kidney failure, unspecified; E66.2 Morbid (severe) obesity with alveolar hypoventilation; Z68.43 Body mass index [BMI] 50.0-59.9, adult; I50.32 Chronic diastolic (congestive) heart failure; E11.52 Type 2 diabetes mellitus with diabetic peripheral angiopathy with gangrene; I96 Gangrene, not elsewhere classified; J96.11 Chronic respiratory failure with hypoxia; E87.3 Alkalosis; I48.0 Paroxysmal atrial fibrillation; Z79.01 Long term (current) use of anticoagulants; F32.9 Major depressive disorder, single episode, unspecified; I11.0 Hypertensive heart disease with heart failure; E78.5 Hyperlipidemia, unspecified; E03.9 Hypothyroidism, unspecified; I87.2 Venous insufficiency (chronic) (peripheral); Z71.3 Dietary counseling and surveillance; Z51.5 Encounter for palliative care; Z93.0 Tracheostomy status; Z93.1 Gastrostomy status; E87.6 Hypokalemia; Z79.84 Long term (current) use of oral hypoglycemic drugs; I27.20 Pulmonary hypertension, unspecified; D50.9 Iron deficiency anemia, unspecified; D69.6 Thrombocytopenia, unspecified; T50.1X5A Adverse effect of loop [high-ceiling] diuretics, initial encounter; Z88.0 Allergy status to penicillin; F17.210 Nicotine dependence, cigarettes, uncomplicated; B96.20 Unspecified Escherichia coli [E. coli] as the cause of diseases classified elsewhere
CPT/HCPCS: 36415; 36416; 51701; 71045; 80053; 80202; 81003; 82553; 83605; 83880; 84484; 85025; 87040; 87070; 87077; 87086; 87186; 87205; 93005; 94640; 96365; 96367; 96375; A4216; A4353; G8978-GP-CM; G8979-GP-CK; G8996-GN-CJ; G8997-GN-CJ; G9171-GN-CI; G9172-GN-CI; J0692; J1650; J1652; J1885; J3370; J7050

== ENCOUNTER 2018-03-15 11:06 | Inpatient (IN) | payer OTHER ==
[2018-03-15 11:47] LABS: Mean Corpuscular HGB CONC 33.3 g/dL (32.0-36.0); Mean Corpuscular Hemoglobin 34.6 pg (27.0-31.0); Mean Platelet Volume 6.8 fL (7.4-10.4); Platelet Count 193 thou/uL (130-400); RBC Distribution Width 14.9 % (11.5-14.5); Red Blood Cell (RBC) Count 3.48 mill/uL (4.20-5.40)
[2018-03-15] MEDS ORDERED: Albuterol Sulfate 2.5 mg/3 ml Neb ONE (11:59)
[2018-03-15] MEDS ORDERED: Albuterol Sulfate 2.5 mg/0.5 ml Neb ONE (11:59)
[2018-03-15] MEDS ORDERED: Sodium Chloride For Inhalation 0.9% 3 ML NEB ONE (12:04)
[2018-03-15 12:09] LABS: ALT (SGPT) 21 U/L (8-55); AST (SGOT) 41 U/L (5-34); Albumin 2.6 g/dL (3.4-4.8); Alkaline Phosphatase 199 U/L (40-150); Anion Gap 18 mmol/L (10-20); BUN (Urea Nitrogen) 33 mg/dL (9.8-20.1); Bilirubin, Total 2.8 mg/dL (0.2-1.2); Calc. Creatinine Clearance 0 mL/min (70-130); Calcium 9.1 mg/dL (7.8-10.44); Carbon Dioxide 27 mmol/L (23-31); Chloride 95 mmol/L (98-107); Estimated GFR-MDRD 47; Globulin 6.4 g/dL (2.4-3.5); Glucose 113 mg/dL (80-115); Potassium 4.1 mmol/L (3.5-5.1); Sodium 136 mmol/L (136-145)
[2018-03-15 12:12] LABS: Actual Bicarbonate (HCO3a) 28.1 mEq/L (22-28); CO2 Tension 34.2 mmHg (35.0-45.0); O2 Tension (PaO2) 52.9 mmHg (> 80.0); pH, Arterial 7.53 (7.35-7.45)
[2018-03-15 12:13] LABS: Base Excess (BEa) 5.5 mEq/L (-2.0 to +3.0)
[2018-03-15 12:14] LABS: Calcium, Ionized 1.1 mmol/L (1.12-1.30); Puncture Site L RA
[2018-03-15 12:28] LABS: MDiff Complete? YES
[2018-03-15 12:29] LABS: Band 27 % (5-11); Eosinophils 1 % (0-10); Lymphocytes 7 % (21-51); Macrocytosis SLIGHT = 6-15 cells (100X) (0-5/hpf); Monocytes 1 % (0-10); Neutrophil 64 % (42-75); PLT Morphology Comment Appears Adequate; Rouleaux Formation SLIGHT = 1-5 cells (100X) (None Seen); Target Cells SLIGHT = 2-5 cells (100X) (0-1/hpf)
--- NOTE | 2018-03-15 12:59 | RAD ---
RADIOGRAPH CHEST 1 VIEW: Date: 03/15/18. Time: 10:43 a.m. HISTORY: A 63-year-old female with altered mental status. COMPARISON: 01/18/18. FINDINGS: Limited evaluation because of lordotic positioning. Tracheostomy tube remains. Lungs are hypoinflat ed. Diffuse bilateral interstitial densities. Magnification of cardiac shadow. Possible pulmonary venous engorgement. No pneumothorax. No pneumothorax. No gross consolidation. No major interval c hange. IMPRESSION: 1. Limited study. 2. Bilateral mild pulmonary interstitial densities, questionable for pulmonary interstitial edema. 3. Findings are probably similar to 01/18/18. JD [] POS: HYACINTH
[2018-03-15] MEDS ORDERED: Morphine 4 MG/ML VIAL ONE (13:10)
[2018-03-15] MEDS ORDERED: Vancomycin HCl 1.5 GM in Sodium Chloride 0.9% 250 ML 300 ML IVPB SCH (14:00)
[2018-03-15] MEDS ORDERED: Ondansetron ODT 4 MG TAB PO PRN (14:29)
[2018-03-15 15:02] LABS: INR-International Normal Ratio 1.4; Prothrombin Time 16.8 SEC (12.0-14.7)
[2018-03-15 15:37] LABS: Troponin I 1.234 ng/mL (< 0.028)
--- NOTE | 2018-03-15 16:42 | CT ---
CT ABDOMEN NONCONTRAST CT PELVIS NONCONTRAST: (urolithiasis protocol) DATE: 03/15/2018 TIME: 3:14 p.m. HISTORY: A 63-year-old female with sepsis and concern for bacterial peritonitis. COMPARISON: Noncontrast CT from 10/04/2017. TECHNIQUE: IV injection of iodinated contrast media: none Oral contrast media: none FINDINGS: Other than for urolithiasis, the lack of IV and oral contrast limits the evaluation. Again noted is the percutaneous gastrostomy tube in the stomach. Hepatic margins are diffusely nodul ar. Cholecystectomy clips in the gallbladder fossa. The exophytic mass protruding inferiorly and posteriorly from the lower pole cortex of the right kidn ey has decreased in size. It was previously approximately 3 x 2.5 x 2.5 cm. It is now 2.5 x 1.5 x 2 cm. It also now has higher density, with thicker hudson. This mass has been present on prior CTs da ting back to 08/27/2002 and 01/27/2012 and is therefore probably a hemorrhagic cyst. Again noted is the fat-containing umbilical hernia, without bowel loops. The fat-containing umbilica l hernia leads to a new, approximately 3.5 x 4 x 5.5 cm ill defined soft tissue attenuation new mass within the subcutaneous fat, to the left of midline. This may or may not be directly deep to the umb ilicus, and could represent a phlegmon or hematoma. There is another new finding of extensive fat str anding representing edema, throughout the adipose tissues of the pannus overlying the lower anterior abdominal wall and pelvis. Given the history of infection, this may represent cellulitis. Some of t he subcutaneous fat of the flanks is excluded from the field of view because of extremely large body habitus. There is no ascites or pneumoperitoneum. Nonspecific streaky pulmonary densities at the bases of the bilateral lower lobes. No pleural effusion. No pneumoperitoneum. No small bowel dilation. Tiny, approximately 3 mm left renal upper pole calculus. No calculus seen in the right kidney. No hydrone phrosis. No ureteral calculus. Left paraaortic varices are again noted. No evidence of colonic div erticulitis. No gross abnormality of the pancreas or spleen, within the limitations of a noncontrast scan. No abscess identified within the abdominal cavity or pelvic cavity. No major interval change in the intraabdominal and intrapelvic contents since the previous CT. IMPRESSION: 1. New finding of edema throughout the large pannus, overlying the lower anterior abdominal wall. T his could represent cellulitis. 2. Soft tissue density mass in the subcutaneous fat, deep to what is probably the umbilicus, and abu tting the distal tip of a fat-containing hernia. Given the history of infection, this may represent phlegmon. Hematoma is and neoplastic tumor are less likely. 3. No abscess or ascites identified within the abdominal cavity or pelvic cavity. 4. Left nephrolithiasis without obstructive uropathy. 5. Hepatic cirrhosis. 6. Percutaneous gastrostomy tube. 7. Status post cholecystectomy. 8. Interval shrinkage of a complex exophytic hemorrhagic cyst protruding from the lower pole of the right kidney. 9. Left retroperitoneal varices, unchanged. JD Akers POS: HYACINTH
--- NOTE | 2018-03-15 16:43 | ULT ---
SOFT TISSUE SONOGRAM LEFT LOWER LEG: HISTORY: Pain and swelling. FINDINGS: Sonographic survey of the medial aspect of the left lower leg and region of abnormality shows extensi ve edema throughout the subcutaneous tissues. No focal fluid collections or solid masses are visible. POS: ERNESTINAH
--- NOTE | 2018-03-15 17:42 | PDOC.FPRHP ---
- History of Present Illness Chief Complaint: Leg pain History of Present Illness: This is a 63 yo F here with hx of DM2, HTN, anxiety/depression, chronic trach 2/ 2 obesity hypoventilation, HFpEF, cirrhosis and a recent hospitalization for LLE cellulitis here with complaint of LLE pain. Pt is currently on hospice. She is unable to appropriately answer questions at this time. She was found after a fall at home by her son earlier this morning. She apparently hit her R 5th toe on something and tripped. Per her son, she did not hit her head, it is unknown if she lost consciousness. Additionally, she complains about R leg pain for the past few weeks that has progressively worsened. This pain is associated with a venous stasis ulcer that has been present for some time. She was recently admitted in December for cellulitis associated with this same ulcer. Because of the fall and increasing leg pain, her son was concerned and wanted to call 911 to have her evaluated. After discussion with hospice nurse, the he decided that he did not want her to be DNR and called for EMS. Pt is 19 years old. Her POA is unclear at this time, however the current best information makes her POA. ED Course: In the ED pt was found to be septic WBC 13, fever of 100.5, pulse 117. She was given 1g of Vanc following cultures. - Allergies/Adverse Reactions Allergies Allergy/AdvReac Type Severity Reaction Status Date / Time Penicillins Allergy Intermediate Rash Verified 08/01/17 17:31 amoxicillin [Amoxicillin] Allergy Verified 08/01/17 17:31 - Home Medications Medication Instructions Recorded Confirmed Type Aspirin [Adult Aspirin Regimen] 81 mg PO DAILY 30 Days #30 10/09/17 03/15/18 Rx tablet. Ferrous Sulfate 325 mg PO BID 12/20/17 03/15/18 History Furosemide [Lasix] 80 mg PO DAILY 12/20/17 03/15/18 History Levothyroxine Sodium [Levoxyl] 1 tablet PO QAM 12/20/17 03/15/18 History Pantoprazole [Protonix] 40 mg PO DAILY 12/20/17 03/15/18 History buPROPion HCl [Wellbutrin] 100 mg PO BID 12/20/17 03/15/18 History Spironolactone [Aldactone] 12.5 mg PO QA- #30 tab 12/23/17 03/15/18 Rx Gabapentin 300 mg PO BID #60 capsule 12/24/17 03/15/18 Rx Nystatin [Mycostatin Powder] 1 gm TOP TID #1 bot 12/24/17 03/15/18 Rx Potassium Chloride [K-Dur] 20 meq PO DAILY #30 tab 12/24/17 03/15/18 Rx Acetaminophen [Tylenol Regular 650 mg PO Q4H PRN tab 01/21/18 03/15/18 Rx Strength] Metolazone [Zaroxolyn] 5 mg PO MWF #12 01/21/18 03/15/18 Rx traMADol HCl [Ultram] 50 mg PO Q6H PRN tab 01/21/18 03/15/18 Rx - History PMHx: KATE/OHS s/p trach HTN HLD OA, bilateral Morbid Obesity MDD pAF Hypothyroidism dCHF COPD Macrocytic Anemia Elevated Liver Enzymes, Cirrhosis Chronic venous stasis GERD CKD II Panniculitis PSHx: tracheostomy cholecystectomy Allergies NKDA FHx:NA Social: hx of tobacco use, denies Etoh and drug use - Review of Systems ROS unobtainable: due to mental status (Pt would only respond to yes or no questions regarding pain, additional information was given by son.) General: denies: fever/chills Respiratory: denies: cough, congestion, shortness of breath Cardiovascular: denies: chest pain, edema Gastrointestinal: denies: nausea, vomiting, diarrhea, abdominal pain Skin: reports: rashes (Worsening redness in LLE), lesions (Draining ulcer on LLE ) Musculoskeletal: denies: pain, tenderness, stiffness, swelling Neurological: denies: numbness, syncope, seizure Psychological: reports: anxiety, depression - Vital signs BP: 100/93 HR: 117 RR: 28 Tmax: 100.5 Pox: 92% on non rebreather Wt: 136 kg - Physical Exam Constitutional: NAD, awake, alert and oriented HEENT: normocephalic and atraumatic, PERRLA, EOMI, conjunctiva clear -Neck: Trach in place with purulent discharge Chest: no-tender to palpation Heart: RRR -Heart: Unable to auscultate heart sound due to habitus and upper airway sounds Lungs: CTAB, no respiratory distress Abdomen: soft, bowel sounds present -Abdomen: TTP in all quadrants Musculoskeletal: normal structure, normal tone Neurological: no focal deficit, CN II-XII intact -Skin: Stasis ulcer on anterior LLE with purulent discharge. Increased redness from baseline. TTP. Stable venous stasis dermatitis on R LE Psychiatric: normal mood and affect FMR H&P: Results - Labs Result Diagrams: 03/15/18 11:35 03/15/18 11:35 Lab results: WBC 13.0 thou/uL (4.8-10.8) H 03/15/18 11:35 Hgb 12.0 g/dL (12.0-16.0) 03/15/18 11:35 Hct 36.2 % (36.0-47.0) 03/15/18 11:35 MCV 104.0 fL (78.0-98.0) H 03/15/18 11:35 Plt Count 193 thou/uL (130-400) 03/15/18 11:35 Band Neuts % (Manual) 27 % (5-11) H 03/15/18 11:35 ABG pH 7.53 (7.35-7.45) H 03/15/18 11:52 ABG pCO2 34.2 mmHg (35.0-45.0) L 03/15/18 11:52 ABG pO2 52.9 mmHg (> 80.0) L* 03/15/18 11:52 Sodium 136 mmol/L (136-145) 03/15/18 11:35 Potassium 4.1 mmol/L (3.5-5.1) 03/15/18 11:35 Chloride 95 mmol/L (98-107) L 03/15/18 11:35 Carbon Dioxide 27 mmol/L (23-31) 03/15/18 11:35 BUN 33 mg/dL (9.8-20.1) H 03/15/18 11:35 Creatinine 1.17 mg/dL (0.6-1.1) H 03/15/18 11:35 Glucose 113 mg/dL (80-115) 03/15/18 11:35 Lactic Acid 3.0 mmol/L (0.5-2.2) H 03/15/18 14:55 Calcium 9.1 mg/dL (7.8-10.44) 03/15/18 11:35 Total Bilirubin 2.8 mg/dL (0.2-1.2) H 03/15/18 11:35 AST 41 U/L (5-34) H 03/15/18 11:35 ALT 21 U/L (8-55) 03/15/18 11:35 Alkaline Phosphatase 199 U/L (40-150) H 03/15/18 11:35 Serum Total Protein 9.0 g/dL (6.0-8.3) H 03/15/18 11:35 Albumin 2.6 g/dL (3.4-4.8) L 03/15/18 11:35 - EKG Interpretation EKG: Sinus tach at 116. Normal ST seg and T wave. - Radiology Interpretation Chest x-ray Status: image reviewed by me, report reviewed by me (questionable pulmonary edema b/l. Stable from previous image) CT scan - abdomen Status: image reviewed by me, report reviewed by me (Edema in pannus. Soft tissue density mas sin subcu fat, possible phlegmon. No ascities or abscess in abdominal cavity.) FMR H&P: A/P - Problem List (1) NSTEMI (non-ST elevated myocardial infarction) Current Visit: Yes Status: Acute Priority: High Code(s): I21.4 - NON-ST ELEVATION (NSTEMI) MYOCARDIAL INFARCTION (2) Sepsis Current Visit: Yes Status: Acute Priority: High Code(s): A41.9 - SEPSIS, UNSPECIFIED ORGANISM Qualifiers: Sepsis type: sepsis due to unspecified organism Qualified Code(s): A41.9 - Sepsis, unspecified organism (3) CKD (chronic kidney disease), stage II Current Visit: Yes Status: Chronic Priority: Medium Code(s): N18.2 - CHRONIC KIDNEY DISEASE, STAGE 2 (MILD) (4) HTN (hypertension) Current Visit: Yes Status: Chronic Priority: Medium Code(s): I10 - ESSENTIAL (PRIMARY) HYPERTENSION (5) Cellulitis of leg Current Visit: Yes Status: Acute Priority: High Code(s): L03.119 - CELLULITIS OF UNSPECIFIED PART OF LIMB Qualifiers: Laterality: left Qualified Code(s): L03.116 - Cellulitis of left lower limb (6) Chronic respiratory failure with hypoxia Current Visit: Yes Status: Chronic Priority: High Code(s): J96.11 - CHRONIC RESPIRATORY FAILURE WITH HYPOXIA (7) Cirrhosis Current Visit: Yes Status: Chronic Priority: Medium Code(s): K74.60 - UNSPECIFIED CIRRHOSIS OF LIVER Qualifiers: Hepatic cirrhosis type: unspecified hepatic cirrhosis Ascites presence: without ascites Qualified Code(s): K74.60 - Unspecified cirrhosis of liver (8) GERD (gastroesophageal reflux disease) Current Visit: Yes Status: Chronic Priority: Medium Code(s): K21.9 - GASTRO-ESOPHAGEAL REFLUX DISEASE WITHOUT ESOPHAGITIS (9) Depression Current Visit: Yes Status: Chronic Priority: Low Code(s): F32.9 - MAJOR DEPRESSIVE DISORDER, SINGLE EPISODE, UNSPECIFIED Qualifiers: Depression Type: major depressive disorder Major depression recurrence: recurrent Active/Remission status: in full remission Qualified Code(s): F33.42 - Major depressive disorder, recurrent, in full remission (10) Hyperbilirubinemia Current Visit: Yes Status: Chronic Priority: Medium Code(s): E80.6 - OTHER DISORDERS OF BILIRUBIN METABOLISM (11) Hyperlipemia Current Visit: Yes Status: Chronic Priority: Medium Code(s): E78.5 - HYPERLIPIDEMIA, UNSPECIFIED Qualifiers: Hyperlipidemia type: mixed hyperlipidemia Qualified Code(s): E78.2 - Mixed hyperlipidemia (12) Hypertension Current Visit: Yes Status: Chronic Priority: Medium Code(s): I10 - ESSENTIAL (PRIMARY) HYPERTENSION Qualifiers: Hypertension type: essential hypertension Qualified Code(s): I10 - Essential (primary) hypertension (13) Hypoventilation associated with obesity Current Visit: Yes Status: Chronic Priority: Medium Code(s): E66.2 - MORBID (SEVERE) OBESITY WITH ALVEOLAR HYPOVENTILATION (14) Obesity, morbid Current Visit: Yes Status: Chronic Priority: Medium Code(s): E66.01 - MORBID (SEVERE) OBESITY DUE TO EXCESS CALORIES (15) Stasis dermatitis of both legs Current Visit: Yes Status: Chronic Priority: Low Code(s): I87.2 - VENOUS INSUFFICIENCY (CHRONIC) (PERIPHERAL) - Plan Sepsis 2/2 cellulitis of R LE - Continue Vanc - Blood cultures pending - US negative for underlying abscess - BP currently controlled, continue IVF - Admit to tele NSTEMI - Therapeutic lovenox - Trend trops and EKG. Most recent 2.531 - ASA has been given - Cards has been consulted, no current change to plan Lactic acidosis - secondary to sepsis - Currently improving, continue to trend HTN - currently controlled, restart home meds Obesity hypoventilation syndrome - Currently maintaining saturation on non rebreather over trach. Continue as needed. - CPAP at night Cirrhosis - no ascites on imaging. - interval worsening of bili and LFTs - MELD score 17 - Monitor CMP in am - continue spironolactone GERD - home meds CKD II - interval worsening, continue IVF. Recheck in am CHF - stable and euvolemic - continue home meds Hypothyroid - home meds Anxiety/depression - home meds PPE - therapeutic lovenox Diet - tube feed Code Full Dispo: Guarded. Pt is currently stable, however has several serious acute problems. Pt was DNR on hospice this am, however this was revoked by . Palliative care consult is pending. FMR H&P: Upper Level - Plan Date/Time: 03/15/18 0225 I, [], have evaluated this patient and agree with findings/plan as outlined by corporate development intern resident. Pertinent changes/additions are listed here.
[2018-03-15] MEDS: cefTRIAXone\\ROCEPHIN 1 GM in Sodium Chloride 0.9% 100 ML IVPB SCH (18:45)
[2018-03-15] MEDS: Lactated Ringer's 1,000 ML IV SCH (18:46)
[2018-03-15 18:59] LABS: Lactic Acid 2.9 mmol/L (0.5-2.2)
[2018-03-15 19:15] LABS: Troponin I 2.531 ng/mL (< 0.028)
--- NOTE | 2018-03-15 19:48 | CON ---
DATE OF CONSULTATION: 03/15/2018 REASON FOR CONSULTATION: Elevated troponin. HISTORY OF PRESENT ILLNESS: Ms. Springer is an unfortunate 63-year-old woman with multiple comorbidit ies who recently presented with mental status changes, weakness and fatigue. I spoke with her son gisselle ndiaye her . Her son states she was found in the bathroom. She was so weak she could not get up. He also felt she had mental status changes. She has been with hospice in the past. He states that he resent hospice and felt they were not providing sufficient care. She does complain of chest pain, abdominal pain, arm pain, leg pain. Has difficult to know what her true current symptom is. She do es have an open wound noted to the lower extremity. Her son states she has had fevers at home. PAST MEDICAL HISTORY: Diabetes mellitus, hypertension, respiratory failure, tracheostomy, lower extr emity cellulitis, obstructive sleep apnea, morbid obesity, hypothyroidism, psoriasis, venous stasis u lcer, pancytopenia. PAST SURGICAL HISTORY: Cholecystectomy. ALLERGIES: None. HOME MEDICATIONS: Include aspirin, iron sulfate, Lasix, levothyroxine, pantoprazole, bupropion, mathieu pentin, nystatin, potassium, metolazone and tramadol. REVIEW OF SYSTEMS: Difficult to obtain. PHYSICAL EXAMINATION: GENERAL: She is morbidly obese with tracheostomy in place. VITAL SIGNS: Blood pressure 100/49, pulse 95, temperature 97.8. NEUROLOGIC: The patient is alert and oriented times 3 with no focal neurologic deficits. HEENT: Sclerae without icterus. Mouth has moist mucous membranes with normal pallor. NECK: No JVD. Carotid upstroke brisk. No bruits bilaterally. LUNGS: Clear to auscultation with unlabored respirations. BACK: No scoliosis or kyphosis. CARDIAC: Regular rate and rhythm with normal S1 and S2. No S3 or S4 noted. No significant rubs, murmurs, thrills, or gallops noted throughout the precordium. PMI is not displaced. There is no parasternal heave. ABDOMEN: Soft, nontender, nondistended. No peritoneal signs present. No hepatosplenomegaly. No abnormal striae. EXTREMITIES: 2+ femoral and 2+ dorsalis pedis pulses. A 3+ pitting edema with significant stasis de rmatitis present and cellulitis to the left lower extremity and right lower extremity. SKIN: No gross abnormalities. PERTINENT LABORATORY DATA AND IMAGING DATA: Hemoglobin 12, initial pO2 of 52, pH 7.53, peak troponin 1.23, lactic acid level 4.2. EKG normal sinus rhythm and nonspecific ST-T wave changes. IMPRESSION: 1. Elevated troponin. 2. Cellulitis. 3. ? sepsis. 4. Tracheostomy. RECOMMENDATIONS: Certainly a difficult situation. I do feel Ms. Springer's symptoms are likely due t o demand ischemia. She has no current symptoms suggesting angina. She also has no acute T-wave hein ges present. She has been placed on vancomycin. There is a question of sepsis. At this point, chary mmend continued conservative therapy. She is on Lovenox and would continue. May need to readdress p alliative care. I do feel her prognosis is very poor.
[2018-03-15] MEDS ORDERED: Enoxaparin Sodium 40 MG/0.4 ML SYRINGE SC SCH (21:00)
[2018-03-15 21:52] LABS: Bilirubin Negative (Negative); Blood, Urine Negative (Negative); Clarity CLOUDY (Clear); Glucose, Urine (Dipstick) Negative (Negative); Leukocyte Moderate (Negative); Nitrite Negative (Negative); Protein, Urine (Dipstick) Trace mg/dL (Neg-Trace); Specific Gravity, Urine 1.018 (1.002-1.036)
[2018-03-15 21:54] LABS: Bacteria/HPF None Seen HPF (None Seen); Hyaline Casts/LPF 0-3 HYALINE CAST LPF (0-3 Hyaline); Pathc Cast-AUWi Flag 0.43 (0-2.49); Squamous Epithelial None Seen HPF (0-3)
[2018-03-15] MEDS: Enoxaparin Sodium 100 MG/ML SYRINGE SC SCH (22:35)
[2018-03-15] MEDS: Famotidine 20 MG TAB PER TUBE SCH (22:35)
[2018-03-15 23:44] LABS: Troponin I 3.769 ng/mL (< 0.028)
[2018-03-16] MEDS: Lactated Ringer's 1,000 ML IV SCH ×6 (02:12→22:53)
[2018-03-16] MEDS ORDERED: traMADol HCl 50 MG TAB PO PRN (03:29)
[2018-03-16] MEDS: traMADol HCl 50 MG TAB PER TUBE PRN ×2 (05:09→23:43)
[2018-03-16 05:20] LABS: ALT (SGPT) 17 U/L (8-55); AST (SGOT) 43 U/L (5-34); Albumin 1.9 g/dL (3.4-4.8); Alkaline Phosphatase 145 U/L (40-150); Anion Gap 11 mmol/L (10-20); BUN (Urea Nitrogen) 33 mg/dL (9.8-20.1); Bilirubin, Total 2.3 mg/dL (0.2-1.2); Calc. Creatinine Clearance 140 mL/min (70-130); Calcium 8.2 mg/dL (7.8-10.44); Carbon Dioxide 30 mmol/L (23-31); Chloride 101 mmol/L (98-107); Estimated GFR-MDRD 61; Globulin 4.6 g/dL (2.4-3.5); Glucose 91 mg/dL (80-115); Potassium 3.3 mmol/L (3.5-5.1); Protein, Total 6.5 g/dL (6.0-8.3); Sodium 139 mmol/L (136-145)
[2018-03-16 05:22] LABS: Band 32 % (5-11); Hemoglobin 9.1 g/dL (12.0-16.0); Lymphocytes 6 % (21-51); MDiff Complete? YES; Mean Corpuscular HGB CONC 33.8 g/dL (32.0-36.0); Mean Platelet Volume 6.9 fL (7.4-10.4); Monocytes 1 % (0-10); Neutrophil 61 % (42-75); PLT Morphology Comment Appears Adequate; Platelet Count 138 thou/uL (130-400); RBC Distribution Width 14.9 % (11.5-14.5); White Blood Cell (WBC) Count 23.1 thou/uL (4.8-10.8)
--- NOTE | 2018-03-16 05:40 | PDOC.FM ---
- Subjective Subjective: This is a 63 yo F with hx of DM2, HTN, anxiety/depression, chronic trach 2/2 obesity hypoventilation, HFpEF, cirrhosis and a recent hospitalization for LLE cellulitis here with complaint of LLE pain. She was found after a fall at home by her son yesterday and son called 911. She was recently admitted in December for cellulitis associated with this same ulcer. Pt is currently on hospice, but family decided to revoke her DNR and have patient evaluated. Overnight the patient complained of pain all over and required morphine and tramadol. On exam today, the patient is in acute distress stating she feels like she is going to and requesting to see her son. She is still complaining of pain all over and feeling "horrible." She notes significant pain in the LLE wound. Upon checking a few hours later, patient is much calmer and not in acute distress with her son at the bedside. She denied current chest pain or SOB. - Objective MAR Reviewed: Yes Vital Signs & Weight: Vital Signs (12 hours) Temp Pulse Resp BP Pulse Ox 03/16/18 05:22 84 16 105/55 L 99 03/16/18 03:48 98.7 F 86 20 90/51 L 99 03/16/18 03:01 86 20 90/51 L 99 03/16/18 02:58 100 03/16/18 01:15 88 99/55 L 03/16/18 00:02 98.6 F 88 20 91/52 L 100 03/15/18 21:00 93 109/58 L 03/15/18 19:30 98.6 F 88 20 93/52 L 100 03/15/18 17:47 97.8 F 95 20 100/49 L 100 Weight Weight 139.616 kg Result Diagrams: 03/16/18 04:23 03/16/18 04:23 <Payton Bell - Last Filed: 03/16/18 11:53> - Objective Vital Signs & Weight: Vital Signs (12 hours) Temp Pulse Pulse Pulse Resp BP BP 03/16/18 15:45 97.9 F 73 20 03/16/18 14:00 86 84 102/61 108/64 03/16/18 11:11 96.9 F L 81 20 03/16/18 08:00 96.9 F L 81 20 BP BP Pulse Ox 03/16/18 15:45 89/54 L 100 03/16/18 14:00 03/16/18 11:11 109/85 100 03/16/18 08:00 106/60 100 Weight Admit Weight 139.616 kg Weight 139.848 kg I&O: 03/15/18 03/16/18 03/17/18 06:59 06:59 06:59 Intake Total 1918 Output Total 925 Balance 993 Result Diagrams: 03/16/18 04:23 03/16/18 04:23 <Maribel Siddiqui - Last Filed: 03/16/18 18:18> Phys Exam - Physical Examination Constitutional: NAD HEENT: moist MMs trach in place with purulent discharge Neck: supple, full ROM expiratory wheeze, decreased breath sounds unable to fully auscultate due to body habitus Gastrointestinal: soft, positive bowel sounds TTP in all quadrants; obese Musculoskeletal: pulses present, edema present 2+ pitting edema Neurological: moves all 4 limbs Deviation from normal: unable to assess due to language barrier and distress Deviation from normal: stasis ulcer on anterior LLE with purulent discharge; erythema receding -: TTP. Stable stasis dermatitis on RLE <Payton Bell - Last Filed: 03/16/18 11:53> Dx/Plan (1) Cellulitis of leg Code(s): L03.119 - CELLULITIS OF UNSPECIFIED PART OF LIMB Status: Acute Qualifiers: Laterality: left Qualified Code(s): L03.116 - Cellulitis of left lower limb (2) NSTEMI (non-ST elevated myocardial infarction) Code(s): I21.4 - NON-ST ELEVATION (NSTEMI) MYOCARDIAL INFARCTION Status: Acute (3) Sepsis Code(s): A41.9 - SEPSIS, UNSPECIFIED ORGANISM Status: Acute Qualifiers: Sepsis type: sepsis due to unspecified organism Qualified Code(s): A41.9 - Sepsis, unspecified organism (4) CKD (chronic kidney disease), stage II Code(s): N18.2 - CHRONIC KIDNEY DISEASE, STAGE 2 (MILD) Status: Chronic (5) Chronic respiratory failure with hypoxia Code(s): J96.11 - CHRONIC RESPIRATORY FAILURE WITH HYPOXIA Status: Chronic (6) Cirrhosis Code(s): K74.60 - UNSPECIFIED CIRRHOSIS OF LIVER Status: Chronic Qualifiers: Hepatic cirrhosis type: unspecified hepatic cirrhosis Ascites presence: without ascites Qualified Code(s): K74.60 - Unspecified cirrhosis of liver (7) Depression Code(s): F32.9 - MAJOR DEPRESSIVE DISORDER, SINGLE EPISODE, UNSPECIFIED Status : Chronic Qualifiers: Depression Type: major depressive disorder Major depression recurrence: recurrent Active/Remission status: in full remission Qualified Code(s): F33.42 - Major depressive disorder, recurrent, in full remission (8) GERD (gastroesophageal reflux disease) Code(s): K21.9 - GASTRO-ESOPHAGEAL REFLUX DISEASE WITHOUT ESOPHAGITIS Status: Chronic (9) HTN (hypertension) Code(s): I10 - ESSENTIAL (PRIMARY) HYPERTENSION Status: Chronic (10) Hyperbilirubinemia Code(s): E80.6 - OTHER DISORDERS OF BILIRUBIN METABOLISM Status: Chronic (11) Hyperlipemia Code(s): E78.5 - HYPERLIPIDEMIA, UNSPECIFIED Status: Chronic Qualifiers: Hyperlipidemia type: mixed hyperlipidemia Qualified Code(s): E78.2 - Mixed hyperlipidemia (12) Hypertension Code(s): I10 - ESSENTIAL (PRIMARY) HYPERTENSION Status: Chronic Qualifiers: Hypertension type: essential hypertension Qualified Code(s): I10 - Essential (primary) hypertension (13) Hypoventilation associated with obesity Code(s): E66.2 - MORBID (SEVERE) OBESITY WITH ALVEOLAR HYPOVENTILATION Status : Chronic (14) Obesity, morbid Code(s): E66.01 - MORBID (SEVERE) OBESITY DUE TO EXCESS CALORIES Status: Chronic (15) Abdominal pain Code(s): R10.9 - UNSPECIFIED ABDOMINAL PAIN Status: Acute Qualifiers: Abdominal location: generalized Qualified Code(s): R10.84 - Generalized abdominal pain (16) GERD (gastroesophageal reflux disease) Code(s): K21.9 - GASTRO-ESOPHAGEAL REFLUX DISEASE WITHOUT ESOPHAGITIS Status: Acute - Plan Plan: This is an ill 63 yo F here for sepsis 2/2 to celluiltsi of the RLE. She is in acute distress the morning and feels as if she is going to . Hospice and palliative care will be coming by to discuss goals of care with pt as she was DNR but is now full code. Sepsis 2/2 cellulitis of R LE - Continue Vanc and rocephin - Blood cultures pending - US negative for underlying abscess - UA showed mod leukocyte esterase and elevated WBCs, neg nitrites; pt being covered with abx - Wound care is on the case - will touch base to see if patient needs a debridement of wound - BP currently controlled, continue IVF - Admit to tele NSTEMI - Therapeutic lovenox - Trend trops and EKG. Most recent 2.531->3.77 - ASA has been given - Cards has been consulted, no current change to plan; elevated trops likely 2/ 2 to demand ischemia Lactic acidosis - secondary to sepsis - on admission; improvin.2 and has trended down to 2.9 HTN - currently controlled, most recent 106/55 - restart home meds Obesity hypoventilation syndrome - Currently maintaining saturation on non rebreather over trach. Continue as needed. - CPAP at night Cirrhosis - no ascites on imaging - interval worsening of bili and LFTs; AST: 43, ALT: 17 - MELD score 17 - Monitor CMP in am - continue spironolactone GERD - home meds CKD II - interval worsening, continue IVF. Recheck in am CHF - stable and euvolemic - continue home meds Hypothyroid - home meds Anxiety/depression - home meds PPE - therapeutic lovenox Diet - tube feed; speech therapy consulted; nutrition consulted Code Full DISPO: Guarded. Pt is currently stable, however has several serious acute problems. Possible transfer to [facility]. Pt was DNR on hospice this am, however this was revoked by . Palliative care consult is pending. <Payton Bell - Last Filed: 03/16/18 11:53> Attending Addendum - Attending Addendum Date/Time: 03/16/181813 I personally evaluated the patient and discussed the management with Dr. Bell. I agree with the History, Examination, Assessment and Plan documented above with any addition or exceptions noted below. Patient with sepsis 2/2 lower extremity cellulitis. Blood and urine cultures pending. Pt on IV vanc and rocephin. Her lactate is elevated but trending downward. pt was anxious this morning but has been better since son is at bedside. The pateitn was on hospice but family revoked hospice and dnr. It appears there are aps and cps cases open as pt is unable to care for herself at home the there may be bed bugs. The patient had fallen at home. Pt's 17 yo son lives with her but is still in school. Will continue antibiotics, fluids, supportive care. Palliative has been consulted. Pt would benefit from alf facility but pt's son is resistant to this. Will need help from case management with d/c planning once pt is stable for discharge. wound care is consulted. Erythema appears to be improving from line of demarcation placed overnight. <Maribel Siddiqui - Last Filed: 03/16/18 18:18>
[2018-03-16] MEDS ORDERED: Sodium Chloride 0.9% 10 ML ONE (08:32)
[2018-03-16] MEDS: Enoxaparin Sodium 100 MG/ML SYRINGE SC SCH ×2 (10:42→21:19)
[2018-03-16] MEDS: Famotidine 20 MG TAB PER TUBE SCH ×2 (10:42→21:19)
[2018-03-16] MEDS: cefTRIAXone\\ROCEPHIN 1 GM in Sodium Chloride 0.9% 100 ML IVPB SCH (18:13)
[2018-03-17] MEDS: Lactated Ringer's 1,000 ML IV SCH ×4 (03:45→16:57)
[2018-03-17 04:01] LABS: Vancomycin, Trough 30.4 ug/mL
--- NOTE | 2018-03-17 05:20 | PDOC.FM ---
- Subjective Subjective: This is a 63 yo F with hx of DM2, HTN, anxiety/depression, chronic trach 2/2 obesity hypoventilation, HFpEF, cirrhosis and a recent hospitalization for LLE cellulitis here with complaint of LLE pain. She was found after a fall at home by her son yesterday and son called 911. She was recently admitted in December for cellulitis associated with this same ulcer. Pt was on hospice, but family decided to revoke her DNR and patient is full code. Overnight the patient had no issues and nurse reports "night and day difference from yesterday." On exam today, the patient is resting comfortably in bed. She states she still has pain in the LLE where her wound is. She denies SOB, chest pain, abdominal pain or NVD. - Objective Vital Signs & Weight: Vital Signs (12 hours) Temp Pulse Resp BP BP Pulse Ox 03/17/18 04:00 98.0 F 73 16 90/48 L 100 03/17/18 00:00 100 03/16/18 21:14 98.4 F 80 18 97/50 L 98 03/16/18 18:28 98.1 F 76 20 99/64 100 Weight Admit Weight 139.616 kg Weight 139.848 kg I&O: 03/15/18 03/16/18 03/17/18 06:59 06:59 06:59 Intake Total 191 2420 Output Total 925 1200 Balance 993 1220 Result Diagrams: 03/17/18 03:24 03/17/18 03:24 <Payton Bell - Last Filed: 03/17/18 09:02> - Objective Vital Signs & Weight: Vital Signs (12 hours) Temp Pulse Resp BP Pulse Ox 03/17/18 19:17 100 03/17/18 16:45 98.4 F 75 16 94/52 L 100 03/17/18 11:22 98.3 F 83 18 97/52 L 100 03/17/18 08:45 98.3 F 83 18 118/56 L 100 Weight Admit Weight 139.616 kg Weight 140.642 kg I&O: 03/16/18 03/17/18 03/18/18 06:59 06:59 06:59 Intake Total 1917 3850 3424 Output Total 925 1975 Balance 993 1875 3424 Result Diagrams: 03/17/18 03:24 03/17/18 03:24 <Maribel Siddiqui - Last Filed: 03/17/18 19:20> Phys Exam - Physical Examination resting comfortably in bed this morning, no distress HEENT: PERRLA, moist MMs Neck: supple, full ROM Respiratory: no wheezing decreased breath sounds, difficult to assess due to habitus Cardiovascular: RRR, no significant murmur difficulty ascultating due to body habitus Gastrointestinal: soft, positive bowel sounds Musculoskeletal: pulses present 1+ edema in bilateral LE Neurological: moves all 4 limbs Psychiatric: A&O x 3 Deviation from normal: stasis ulcer on anterior LLE with dr& purulent discharge ; erythema receding -: TTP, chronic stasis dermatitis of RLE <Payton Bell - Last Filed: 03/17/18 09:02> Dx/Plan (1) Cellulitis of leg Code(s): L03.119 - CELLULITIS OF UNSPECIFIED PART OF LIMB Status: Acute Qualifiers: Laterality: left Qualified Code(s): L03.116 - Cellulitis of left lower limb (2) NSTEMI (non-ST elevated myocardial infarction) Code(s): I21.4 - NON-ST ELEVATION (NSTEMI) MYOCARDIAL INFARCTION Status: Acute (3) Sepsis Code(s): A41.9 - SEPSIS, UNSPECIFIED ORGANISM Status: Acute Qualifiers: Sepsis type: sepsis due to unspecified organism Qualified Code(s): A41.9 - Sepsis, unspecified organism (4) CKD (chronic kidney disease), stage II Code(s): N18.2 - CHRONIC KIDNEY DISEASE, STAGE 2 (MILD) Status: Chronic (5) Chronic respiratory failure with hypoxia Code(s): J96.11 - CHRONIC RESPIRATORY FAILURE WITH HYPOXIA Status: Chronic (6) Cirrhosis Code(s): K74.60 - UNSPECIFIED CIRRHOSIS OF LIVER Status: Chronic Qualifiers: Hepatic cirrhosis type: unspecified hepatic cirrhosis Ascites presence: without ascites Qualified Code(s): K74.60 - Unspecified cirrhosis of liver (7) Depression Code(s): F32.9 - MAJOR DEPRESSIVE DISORDER, SINGLE EPISODE, UNSPECIFIED Status : Chronic Qualifiers: Depression Type: major depressive disorder Major depression recurrence: recurrent Active/Remission status: in full remission Qualified Code(s): F33.42 - Major depressive disorder, recurrent, in full remission (8) GERD (gastroesophageal reflux disease) Code(s): K21.9 - GASTRO-ESOPHAGEAL REFLUX DISEASE WITHOUT ESOPHAGITIS Status: Chronic (9) HTN (hypertension) Code(s): I10 - ESSENTIAL (PRIMARY) HYPERTENSION Status: Chronic (10) Hyperbilirubinemia Code(s): E80.6 - OTHER DISORDERS OF BILIRUBIN METABOLISM Status: Chronic (11) Hyperlipemia Code(s): E78.5 - HYPERLIPIDEMIA, UNSPECIFIED Status: Chronic Qualifiers: Hyperlipidemia type: mixed hyperlipidemia Qualified Code(s): E78.2 - Mixed hyperlipidemia (12) Hypertension Code(s): I10 - ESSENTIAL (PRIMARY) HYPERTENSION Status: Chronic Qualifiers: Hypertension type: essential hypertension Qualified Code(s): I10 - Essential (primary) hypertension (13) Hypoventilation associated with obesity Code(s): E66.2 - MORBID (SEVERE) OBESITY WITH ALVEOLAR HYPOVENTILATION Status : Chronic (14) Obesity, morbid Code(s): E66.01 - MORBID (SEVERE) OBESITY DUE TO EXCESS CALORIES Status: Chronic (15) Abdominal pain Code(s): R10.9 - UNSPECIFIED ABDOMINAL PAIN Status: Acute Qualifiers: Abdominal location: generalized Qualified Code(s): R10.84 - Generalized abdominal pain (16) GERD (gastroesophageal reflux disease) Code(s): K21.9 - GASTRO-ESOPHAGEAL REFLUX DISEASE WITHOUT ESOPHAGITIS Status: Acute - Plan Plan: This is an ill 63 yo F here for sepsis 2/2 to cellulitis of the RLE/LLE, her condition remains guarded. Sepsis 2/2 cellulitis of R LE - Continue Vanc and rocephin. Vanc trough came back at 30.4. Morning dose of vanc was held. WIll recheck trough. - Blood/urine cultures pending - US negative for underlying abscess - UA showed mod leukocyte esterase and elevated WBCs, neg nitrites; pt being covered with abx - Wound care is on the case - Will contact and look for wound care recs to see if patient needs a debridement of wound - BP currently controlled, continue IVF NSTEMI - Therapeutic lovenox - Trend trops and EKG. Most recent 2.531->3.77 - ASA has been given - Cards has been consulted, no current change to plan; elevated trops likely 2/ 2 to demand ischemia Lactic acidosis - secondary to sepsis - on admission; improvin.2 and has trended down to 2.9 HTN - currently controlled, most recent 90s/40-50s - restart home meds Obesity hypoventilation syndrome - Currently maintaining saturation on non rebreather over trach. Continue as needed. - CPAP at night Cirrhosis - no ascites on imaging - Improved LFTs - MELD score 17 - continue spironolactone GERD - home meds CKD II - stable CHF - stable and euvolemic - continue home meds Hypothyroid - home meds Anxiety/depression - home meds PPE - therapeutic lovenox Diet - tube feed; speech therapy consulted; nutrition consulted Code Full DISPO: Guarded. Pt is currently stable, but has many problems. CM and APS on the case to determine the discharge plan for this patient. <Payton Bell - Last Filed: 03/17/18 09:02> Attending Addendum - Attending Addendum Date/Time: 03/17/181918 I personally evaluated the patient and discussed the management with Dr. Bell. I agree with the History, Examination, Assessment and Plan documented above with any addition or exceptions noted below. WBC is improved. Erythema in RLE is improving on IV antibiotics. Pt is more comfortable today. Case management is helping to arrange discharge. We do not feel that patient can be safely taken care of at home. <Maribel Siddiqui - Last Filed: 03/17/18 19:20>
[2018-03-17 08:27] LABS: #Basophils 0.1 thou/uL (0.0-0.2); #Eosinphils 0.2 thou/uL (0.0-0.7); #Lymphocytes 1.5 thou/uL (1.20-3.40); #Monocytes 1.3 thou/uL (0.11-0.59); %Basophils 0.4 % (0.0-1.0); %Eosinophils 1.4 % (0.0-10.0); %Monocytes 9.1 % (0.0-10.0); %Neutrophils 78.1 % (42.0-75.0); Hemoglobin 9.8 g/dL (12.0-16.0); Mean Corpuscular HGB CONC 33.3 g/dL (32.0-36.0); Mean Corpuscular Hemoglobin 34.9 pg (27.0-31.0); Mean Platelet Volume 7.5 fL (7.4-10.4); Platelet Count 142 thou/uL (130-400); RBC Distribution Width 15.1 % (11.5-14.5); Red Blood Cell (RBC) Count 2.82 mill/uL (4.20-5.40); White Blood Cell (WBC) Count 14.1 thou/uL (4.8-10.8)
[2018-03-17 08:32] LABS: Anion Gap 12 mmol/L (10-20); BUN (Urea Nitrogen) 28 mg/dL (9.8-20.1); Calc. Creatinine Clearance 153 mL/min (70-130); Calcium 8.3 mg/dL (7.8-10.44); Carbon Dioxide 30 mmol/L (23-31); Chloride 99 mmol/L (98-107); Estimated GFR-MDRD 67; Glucose 101 mg/dL (80-115); Potassium 3.4 mmol/L (3.5-5.1); Sodium 138 mmol/L (136-145)
[2018-03-17] MEDS ORDERED: Levothyroxine Sodium 112 MCG TAB PO SCH (09:00)
[2018-03-17] MEDS: Enoxaparin Sodium 100 MG/ML SYRINGE SC SCH (09:11)
[2018-03-17] MEDS: Famotidine 20 MG TAB PER TUBE SCH ×2 (09:11→22:07)
[2018-03-17] MEDS: traMADol HCl 50 MG TAB PER TUBE PRN (09:12)
[2018-03-17 16:38] LABS: Vancomycin, Random 19.7 ug/mL (See Comment)
[2018-03-17] MEDS: cefTRIAXone\\ROCEPHIN 1 GM in Sodium Chloride 0.9% 100 ML IVPB SCH (19:05)
[2018-03-17] MEDS: Rosuvastatin 10 MG TAB PO SCH (22:07)
[2018-03-18] MEDS: Lactated Ringer's 1,000 ML IV SCH ×5 (03:37→15:25)
[2018-03-18 04:49] LABS: Hemoglobin 9.3 g/dL (12.0-16.0); Platelet Count 140 thou/uL (130-400)
[2018-03-18 04:50] LABS: #Basophils 0.1 thou/uL (0.0-0.2); #Eosinphils 0.2 thou/uL (0.0-0.7); #Lymphocytes 1.4 thou/uL (1.20-3.40); #Monocytes 1.2 thou/uL (0.11-0.59); #Neutrophils 6.3 thou/uL (1.40-6.50); %Basophils 0.6 % (0.0-1.0); %Eosinophils 2.2 % (0.0-10.0); %Lymphocytes 15.4 % (21.0-51.0); %Monocytes 13.2 % (0.0-10.0); %Neutrophils 68.6 % (42.0-75.0); Hemoglobin 9.4 g/dL (12.0-16.0); Mean Corpuscular HGB CONC 33.6 g/dL (32.0-36.0); Platelet Count 136 thou/uL (130-400); RBC Distribution Width 14.9 % (11.5-14.5); Red Blood Cell (RBC) Count 2.68 mill/uL (4.20-5.40); White Blood Cell (WBC) Count 9.2 thou/uL (4.8-10.8)
[2018-03-18 05:05] LABS: Anion Gap 12 mmol/L (10-20); BUN (Urea Nitrogen) 20 mg/dL (9.8-20.1); Calc. Creatinine Clearance 177 mL/min (70-130); Calcium 7.9 mg/dL (7.8-10.44); Carbon Dioxide 29 mmol/L (23-31); Chloride 99 mmol/L (98-107); Estimated GFR-MDRD 80; Glucose 95 mg/dL (80-115); Potassium 3.7 mmol/L (3.5-5.1); Sodium 136 mmol/L (136-145)
[2018-03-18 05:07] LABS: Lactic Acid 1.3 mmol/L (0.5-2.2)
--- NOTE | 2018-03-18 06:00 | PDOC.FM ---
- Subjective Subjective: Patient is a 63 yo F here for cellulitis of bilateral LE. This morning she complains of minimal pain in the LLE, better than yesterday. Otherwise she has no complaints or concerns. Patient is still concerned about what facility she will be placed in. She denies SOB, chest pain, abdominal pain, fever, NVD. - Objective MAR Reviewed: Yes Vital Signs & Weight: Vital Signs (12 hours) Temp Pulse Resp BP BP Pulse Ox 03/18/18 04:00 98.9 F 92 17 99/54 L 100 03/18/18 01:16 100 03/17/18 22:06 99.1 F 89 20 119/55 L 100 Weight Admit Weight 139.616 kg Weight 140.642 kg I&O: 03/16/18 03/17/18 03/18/18 06:59 06:59 06:59 Intake Total 1918 3850 3669 Output Total 921974 Balance 993 1875 3669 Result Diagrams: 03/18/18 04:18 03/18/18 04:18 <Payton Bell - Last Filed: 03/18/18 16:10> - Objective Vital Signs & Weight: Vital Signs (12 hours) Temp Pulse Resp BP Pulse Ox 03/18/18 15:20 98.5 F 72 18 116/56 L 100 03/18/18 12:00 98.4 F 81 16 103/55 L 100 03/18/18 08:10 98.3 F 85 20 100 03/18/18 08:00 98.3 F 85 20 105/53 L 100 03/18/18 07:09 100 Weight Admit Weight 139.616 kg Weight 141.663 kg I&O: 03/17/18 03/18/18 03/19/18 06:59 06:59 06:59 Intake Total 3850 5481 Output Total 1975 1600 575 Balance 1875 3881 -575 Result Diagrams: 03/18/18 04:18 03/18/18 04:18 <Maribel Siddiqui - Last Filed: 03/18/18 16:15> Phys Exam - Physical Examination morbidly obese, resting in bed HEENT: PERRLA, moist MMs, sclera anicteric Neck: no JVD, supple, full ROM Respiratory: no wheezing, no rales, clear to auscultation bilateral difficult to fully assess due to body habitus Cardiovascular: RRR, no significant murmur difficult to ascultate fully due to body habitus Gastrointestinal: soft, positive bowel sounds Musculoskeletal: pulses present Neurological: moves all 4 limbs Psychiatric: A&O x 3 Deviation from normal: purulent wound of LLE, improved; redness continues to recede <Payton Bell - Last Filed: 03/18/18 16:10> Dx/Plan (1) Cellulitis of leg Code(s): L03.119 - CELLULITIS OF UNSPECIFIED PART OF LIMB Status: Acute Qualifiers: Laterality: left Qualified Code(s): L03.116 - Cellulitis of left lower limb (2) NSTEMI (non-ST elevated myocardial infarction) Code(s): I21.4 - NON-ST ELEVATION (NSTEMI) MYOCARDIAL INFARCTION Status: Acute (3) Sepsis Code(s): A41.9 - SEPSIS, UNSPECIFIED ORGANISM Status: Acute Qualifiers: Sepsis type: sepsis due to unspecified organism Qualified Code(s): A41.9 - Sepsis, unspecified organism (4) CKD (chronic kidney disease), stage II Code(s): N18.2 - CHRONIC KIDNEY DISEASE, STAGE 2 (MILD) Status: Chronic (5) Chronic respiratory failure with hypoxia Code(s): J96.11 - CHRONIC RESPIRATORY FAILURE WITH HYPOXIA Status: Chronic (6) Cirrhosis Code(s): K74.60 - UNSPECIFIED CIRRHOSIS OF LIVER Status: Chronic Qualifiers: Hepatic cirrhosis type: unspecified hepatic cirrhosis Ascites presence: without ascites Qualified Code(s): K74.60 - Unspecified cirrhosis of liver (7) Depression Code(s): F32.9 - MAJOR DEPRESSIVE DISORDER, SINGLE EPISODE, UNSPECIFIED Status : Chronic Qualifiers: Depression Type: major depressive disorder Major depression recurrence: recurrent Active/Remission status: in full remission Qualified Code(s): F33.42 - Major depressive disorder, recurrent, in full remission (8) GERD (gastroesophageal reflux disease) Code(s): K21.9 - GASTRO-ESOPHAGEAL REFLUX DISEASE WITHOUT ESOPHAGITIS Status: Chronic (9) HTN (hypertension) Code(s): I10 - ESSENTIAL (PRIMARY) HYPERTENSION Status: Chronic (10) Hyperbilirubinemia Code(s): E80.6 - OTHER DISORDERS OF BILIRUBIN METABOLISM Status: Chronic (11) Hyperlipemia Code(s): E78.5 - HYPERLIPIDEMIA, UNSPECIFIED Status: Chronic Qualifiers: Hyperlipidemia type: mixed hyperlipidemia Qualified Code(s): E78.2 - Mixed hyperlipidemia (12) Hypertension Code(s): I10 - ESSENTIAL (PRIMARY) HYPERTENSION Status: Chronic Qualifiers: Hypertension type: essential hypertension Qualified Code(s): I10 - Essential (primary) hypertension (13) Hypoventilation associated with obesity Code(s): E66.2 - MORBID (SEVERE) OBESITY WITH ALVEOLAR HYPOVENTILATION Status : Chronic (14) Obesity, morbid Code(s): E66.01 - MORBID (SEVERE) OBESITY DUE TO EXCESS CALORIES Status: Chronic (15) Abdominal pain Code(s): R10.9 - UNSPECIFIED ABDOMINAL PAIN Status: Acute Qualifiers: Abdominal location: generalized Qualified Code(s): R10.84 - Generalized abdominal pain (16) GERD (gastroesophageal reflux disease) Code(s): K21.9 - GASTRO-ESOPHAGEAL REFLUX DISEASE WITHOUT ESOPHAGITIS Status: Acute - Plan Plan: This is an ill 63 yo F here for sepsis 2/2 to cellulitis of the RLE/LLE, her condition has improved. Sepsis 2/2 cellulitis of R LE - Continue Vanc and rocephin. Vanc trough came back at 30.4 which may be due to elevated bilirubin. The next can dose was held. Random vanc came back at 19. - Urine culture came back positive for E coli -being tx with abx. Blood culture still no growth. - US negative for underlying abscess - UA showed mod leukocyte esterase and elevated WBCs, neg nitrites; pt being covered with abx - Wound care is on the case - Will contact and look for wound care recs to see if patient needs a debridement of wound - BP currently controlled, continue IVF Leukocytosis - likely 2/2 to cellulitis and wound - WBC has trended down significantly. We will continue to trend. NSTEMI - Therapeutic lovenox - Trend trops and EKG. Most recent 2.531->3.77 - ASA has been given - Cards has been consulted, no current change to plan; elevated trops likely 2/ 2 to demand ischemia Lactic acidosis - secondary to sepsis - on admission; improvin.2 and has trended down to 2.9 HTN - currently controlled, most recent 90s/40-50s - restart home meds Obesity hypoventilation syndrome - Currently maintaining saturation on non rebreather over trach. Continue as needed. - CPAP at night Cirrhosis - no ascites on imaging - Improved LFTs - MELD score 17 - continue spironolactone GERD - home meds CKD II - stable CHF - stable and euvolemic - continue home meds Hypothyroid - home meds Anxiety/depression - home meds PPE - therapeutic lovenox Diet - tube feed; speech therapy consulted; nutrition consulted Code - Full DISPO: Improved. Pt is currently stable, but has many problems. CM and APS on the case to determine the discharge plan for this patient. <Payton Bell - Last Filed: 03/18/18 16:10> Attending Addendum - Attending Addendum Date/Time: 03/18/18 3871 I personally evaluated the patient and discussed the management with Dr. Bell. I agree with the History, Examination, Assessment and Plan documented above with any addition or exceptions noted below. The patient's cellulitis is improving on IV antibiotics. Continue wound care. D/c daja. Per case mgmt reports, pt is refusing jail placement and APS is involved as pt is not safe in the home without 24 hour care. <Maribel Siddiqui - Last Filed: 03/18/18 16:15>
[2018-03-18] MEDS: Levothyroxine Sodium 112 MCG TAB PO SCH (06:09)
[2018-03-18] MEDS: Enoxaparin Sodium 40 MG/0.4 ML SYRINGE SC SCH (09:15)
[2018-03-18] MEDS: traMADol HCl 50 MG TAB PER TUBE PRN ×2 (09:15→21:09)
[2018-03-18] MEDS: Famotidine 20 MG TAB PER TUBE SCH ×2 (09:15→21:09)
[2018-03-18 13:20] VITALS: BMI 55.3
--- NOTE | 2018-03-18 15:00 | PDOC.CTH ---
Cardiology Progress Note - Subjective patient resting. no complaints. no overnight events. - Objective Vital Signs Temp Pulse Resp BP BP Pulse Ox 03/18/18 12:00 98.4 F 81 16 103/55 L 100 03/18/18 08:10 98.3 F 85 20 100 03/18/18 08:00 98.3 F 85 20 105/53 L 100 03/18/18 07:09 100 03/18/18 04:00 98.9 F 92 17 99/54 L 100 Admit Weight 307 lb 12.8 oz Weight 312 lb 5 oz 03/17/18 03/18/18 03/19/18 06:59 06:59 06:59 Intake Total 3850 5481 Output Total 1975 1600 Balance 1875 3881 - Physical Examination General/Neuro: alert & oriented x3 Lungs: other: (decreased BS; difficult to tolerate due to obesity) Heart: RRR Abdomen: NT/ND Extremities: + edema B - Telemetry Telemetry Rhythm: SR - Labs Result Diagrams: 03/18/18 04:18 03/18/18 04:18 Troponin/CKMB Troponin I 3.769 ng/mL (< 0.028) H* 03/15/18 23:07 - Assessment/Plan 1. s/p NSTEMI 2. Sepsis 3. History of cirrhosis 4. CKD 5. HTN 6. Diastolic dysfunction Stable, but still remains hypotensive. Continue to hold BP meds, but will decrease IVFs as not to volume overload patient given history of diastolic dysfunction. Monitor volume status closely and may need to resume lasix.
[2018-03-18] MEDS: cefTRIAXone\\ROCEPHIN 1 GM in Sodium Chloride 0.9% 100 ML IVPB SCH (18:22)
[2018-03-18] MEDS: Rosuvastatin 10 MG TAB PO SCH (21:08)
[2018-03-19] MEDS: Levothyroxine Sodium 112 MCG TAB PO SCH (05:39)
--- NOTE | 2018-03-19 06:08 | PDOC.FM ---
- Subjective Subjective: This is a 63 year old female here for sepsis 2/2 to cellulitis of LLE. The patient had increased secretions from her trach tube overnight that were suctioned. She endorse "a little" pain in the LLE, improved from yesterday. She has no other complaints at this time. She denies SOB, chest pain, abdominal pain , subjective fever, chills, NVD. - Objective Vital Signs & Weight: Vital Signs (12 hours) Temp Pulse Resp BP Pulse Ox 03/18/18 20:00 99.2 F 76 16 112/54 L 98 03/18/18 19:25 98 Weight Admit Weight 139.616 kg Weight 141.663 kg I&O: 03/17/18 03/18/18 03/19/18 06:59 06:59 06:59 Intake Total 3850 5481 2394 Output Total 1975 1600 575 Balance 1875 7906 8369 Result Diagrams: 03/18/18 04:18 03/18/18 04:18 Phys Exam - Physical Examination Constitutional: NAD resting in bed, obese HEENT: PERRLA, moist MMs, sclera anicteric Neck: supple, full ROM Respiratory: clear to auscultation bilateral difficult to fully ascultate due to body habitus Cardiovascular: RRR, no significant murmur difficult to ascultate due to body habitus Gastrointestinal: soft, non-tender, positive bowel sounds Musculoskeletal: pulses present +1 edema Neurological: moves all 4 limbs Psychiatric: A&O x 3 Skin: no rash Deviation from normal: dressed wound on LLE, redness continues to diminish and recede -: wound to LLE bandaged - still TTP Dx/Plan (1) Cellulitis of leg Code(s): L03.119 - CELLULITIS OF UNSPECIFIED PART OF LIMB Status: Acute Qualifiers: Laterality: left Qualified Code(s): L03.116 - Cellulitis of left lower limb (2) NSTEMI (non-ST elevated myocardial infarction) Code(s): I21.4 - NON-ST ELEVATION (NSTEMI) MYOCARDIAL INFARCTION Status: Acute (3) Sepsis Code(s): A41.9 - SEPSIS, UNSPECIFIED ORGANISM Status: Acute Qualifiers: Sepsis type: sepsis due to unspecified organism Qualified Code(s): A41.9 - Sepsis, unspecified organism (4) CKD (chronic kidney disease), stage II Code(s): N18.2 - CHRONIC KIDNEY DISEASE, STAGE 2 (MILD) Status: Chronic (5) Chronic respiratory failure with hypoxia Code(s): J96.11 - CHRONIC RESPIRATORY FAILURE WITH HYPOXIA Status: Chronic (6) Cirrhosis Code(s): K74.60 - UNSPECIFIED CIRRHOSIS OF LIVER Status: Chronic Qualifiers: Hepatic cirrhosis type: unspecified hepatic cirrhosis Ascites presence: without ascites Qualified Code(s): K74.60 - Unspecified cirrhosis of liver (7) Depression Code(s): F32.9 - MAJOR DEPRESSIVE DISORDER, SINGLE EPISODE, UNSPECIFIED Status : Chronic Qualifiers: Depression Type: major depressive disorder Major depression recurrence: recurrent Active/Remission status: in full remission Qualified Code(s): F33.42 - Major depressive disorder, recurrent, in full remission (8) GERD (gastroesophageal reflux disease) Code(s): K21.9 - GASTRO-ESOPHAGEAL REFLUX DISEASE WITHOUT ESOPHAGITIS Status: Chronic (9) HTN (hypertension) Code(s): I10 - ESSENTIAL (PRIMARY) HYPERTENSION Status: Chronic (10) Hyperbilirubinemia Code(s): E80.6 - OTHER DISORDERS OF BILIRUBIN METABOLISM Status: Chronic (11) Hyperlipemia Code(s): E78.5 - HYPERLIPIDEMIA, UNSPECIFIED Status: Chronic Qualifiers: Hyperlipidemia type: mixed hyperlipidemia Qualified Code(s): E78.2 - Mixed hyperlipidemia (12) Hypertension Code(s): I10 - ESSENTIAL (PRIMARY) HYPERTENSION Status: Chronic Qualifiers: Hypertension type: essential hypertension Qualified Code(s): I10 - Essential (primary) hypertension (13) Hypoventilation associated with obesity Code(s): E66.2 - MORBID (SEVERE) OBESITY WITH ALVEOLAR HYPOVENTILATION Status : Chronic (14) Obesity, morbid Code(s): E66.01 - MORBID (SEVERE) OBESITY DUE TO EXCESS CALORIES Status: Chronic (15) Abdominal pain Code(s): R10.9 - UNSPECIFIED ABDOMINAL PAIN Status: Acute Qualifiers: Abdominal location: generalized Qualified Code(s): R10.84 - Generalized abdominal pain (16) GERD (gastroesophageal reflux disease) Code(s): K21.9 - GASTRO-ESOPHAGEAL REFLUX DISEASE WITHOUT ESOPHAGITIS Status: Acute - Plan Plan: This is an ill 63 yo F here for sepsis 2/2 to cellulitis of the RLE/LLE, her condition has improved. Sepsis 2/2 cellulitis of R LE - Continue Vanc and rocephin. Vanc trough came back at 30.4 which may be due to elevated bilirubin. Random vanc came back at 19. - Patient will be discharged with Clindamycin and Bactrim to cover her infxn. - Urine culture came back positive for E coli -being tx with abx. Blood culture still no growth. - US negative for underlying abscess - UA showed mod leukocyte esterase and elevated WBCs, neg nitrites; pt being covered with abx - Wound care is on the case. Family will be educated on wound care for when patient is discharged home. - BP currently controlled, holding BP meds, dec IVF Leukocytosis - likely 2/2 to cellulitis and wound - WBC has trended down significantly. We will continue to trend. NSTEMI - Therapeutic lovenox - Elevated trops 2/2 to demand ischemia - ASA has been given - Cards has been consulted. Recommend holding BP meds, decrease IVF, possibly resume lasix if pt gets fluid overloaded. Agree with discharge today. Lactic acidosis - secondary to sepsis - on admission; improvin.2 and has trended down to 2.9 HTN - currently controlled, most recent 90s/40-50s - restart home meds Obesity hypoventilation syndrome - Currently maintaining saturation on non rebreather over trach. Continue as needed. - CPAP at night Cirrhosis - no ascites on imaging - Improved LFTs - MELD score 17 GERD - home meds CKD II - stable CHF - stable and euvolemic - decreased IVF, may need to resume lasix - continue home meds Hypothyroid - home meds Anxiety/depression - home meds PPE - therapeutic lovenox Diet - tube feed; speech therapy consulted; nutrition consulted Code - Full DISPO: Improved. Pt is currently stable, but has many problems. Patient will be discharged home today after family is educated on wound care at home. Per CM, APS is giving the family one week to clean up the home so it is safe for patient. Case discussed with Dr. Edwards
--- NOTE | 2018-03-19 09:57 | PDOC.CTH ---
Cardiology Progress Note - Subjective No overnight events. Plan for discharge today. - Objective Vital Signs Temp Pulse Resp BP Pulse Ox 03/19/18 04:00 98.5 F 75 16 94/51 L 100 Admit Weight 307 lb 12.8 oz Weight 311 lb 6.4 oz 03/18/18 03/19/18 03/20/18 06:59 06:59 06:59 Intake Total 5481 3690 Output Total 1600 575 Balance 3881 3115 - Physical Examination General/Neuro: alert & oriented x3 Lungs: CTA, other: Heart: RRR Abdomen: NT/ND Extremities: + edema B - Telemetry Telemetry Rhythm: SR - Labs Result Diagrams: 03/18/18 04:18 03/18/18 04:18 Troponin/CKMB Troponin I 3.769 ng/mL (< 0.028) H* 03/15/18 23:07 - Assessment/Plan 1. s/p NSTEMI 2. Sepsis 3. History of cirrhosis 4. CKD 5. HTN 6. Diastolic dysfunction No changes overnight. Plan for discharge today.
[2018-03-19] MEDS: Enoxaparin Sodium 40 MG/0.4 ML SYRINGE SC SCH (10:20)
[2018-03-19] MEDS: Famotidine 20 MG TAB PER TUBE SCH (10:20)
[2018-03-19] MEDS: Lactated Ringer's 1,000 ML IV SCH (10:20)
[2018-03-19] MEDS: traMADol HCl 50 MG TAB PER TUBE PRN (10:38)
--- NOTE | 2018-03-19 10:46 | EKG ---
Test Reason : SEPSIS Blood Pressure : / mmHG Vent. Rate : 116 BPM Atrial Rate : 116 BPM P-R Int : 164 ms QRS Dur : 086 ms QT Int : 344 ms P-R-T Axes : 105 -07 009 degrees QTc Int : 478 ms Sinus tachycardia with Fusion complexes Cannot rule out Inferior infarct , age undetermined Cannot rule out Anterior infarct , age undetermined Abnormal ECG Confirmed by MARCY CURTIS, MARINO Nobles ([id number]), web editor WILNER WILSON ([id number]) on 03/19/2018 10:46:09 AM Referred By: Confirmed By:MARINO VIDAL MD
[2018-03-19 12:41] VITALS: BP 111/59; TEMP 98.6
--- NOTE | 2018-03-20 01:47 | DIS-2 ---
DATE OF ADMISSION: 03/15/2018 DATE OF DISCHARGE: 03/19/2018 RESIDENT: Payton Bell M.D. ADMITTING ATTENDING: Maribel Siddiqui M.D. DISCHARGE ATTENDING: Tree Edwards M.D. CONSULTATIONS: Palliative/Hospice, Dietitian, Speech Therapy, Physical Therapy , Wound Care, Cardiology, Ethics, Case Management. PROCEDURES: 1. Chest x-ray on 03/15/2018, limited study, bilateral mild pulmonary interstitial densities, questionable for pulmonary interstitial edema. Findings are probably similar to 01/18/2018. 2. CT abdomen and pelvis on 03/15/2018 showed edema throughout the large pannus -could represent cellulitis. Possible phlegmon deep to the umbilicus; left nephrolithiasis; hepatic cirrhosis; percutaneous gastrostomy tube; left retroperitoneal varices. 3. Soft tissue ultrasound left lower extremity on 03/15/2018 showed extensive edema throughout the subcutaneous tissues. No fluid collections or solid masses visible. PRIMARY DIAGNOSES: Sepsis secondary to cellulitis of bilateral lower extremities, non ST elevation myocardial infarction. SECONDARY DIAGNOSES: Chronic kidney disease stage 2, hypertension, cellulitis of bilateral lower extremities, chronic respiratory failure with hypoxia, cirrhosis, gastroesophageal reflux disease, depression, hyperbilirubinemia, hyperlipidemia, hypoventilation associated with obesity, obesity, stasis dermatitis of both legs. DISCHARGE MEDICATIONS: 1. Clindamycin 450 mg oral every 6 hours. 2. Sulfamethoxazole/trimethoprim (Bactrim) 2 tabs oral twice daily). 3. Aspirin 81 mg oral daily. 4. Ferrous sulfate 325 mg oral twice daily. 5. Pantoprazole (Protonix) 40 mg oral daily. 6. Bupropion (Wellbutrin) 100 mg oral twice daily. 7. Levothyroxine 1 tablet oral every morning. 8. Furosemide (Lasix) 80 mg oral daily. 9. Spironolactone (Aldactone) 12.5 mg oral every morning with breakfast. 10. Nystatin (Mycostatin powder) 1 gram topical 3 times daily. 11. Potassium chloride 12 mEq oral daily. 12. Gabapentin 300 mg oral twice daily. 13. Acetaminophen (Tylenol regular strength) 650 mg oral every 4 hours as needed. 14. Tramadol (Ultram) 50 mg oral every 6 hours as needed. 15. Metolazone (Zaroxolyn) 5 mg oral Wednesday, Wednesday, and Wednesday. DISCONTINUED MEDICATIONS: None. HISTORY OF PRESENT ILLNESS AND HOSPITAL COURSE: The patient is a 63-year-old female with a significant past medical history and recent hospitalization for left lower extremity cellulitis and was discharged on home hospice and DNR. The patient returned to the hospital for left lower extremity pain and found to be septic. Per her 17 year old son, she fell at home and hit her right fifth metatarsal on something. She was also complaining of right lower extremity pain as well. Her son was concerned and called 911 to have her evaluated. After discussion with the hospice nurse, the son decided he did not want his mother to be DNR. The patient's power of mechanical maintenance engineer is her estranged and he consented to have her DNR revoked and she was made FULL CODE. At this point in time, the ethics committee was consulted and determined that the patient's power of mechanical maintenance engineer would be her estranged . The patient was also then started on vancomycin and Rocephin for empiric therapy due to her sepsis. Blood cultures were negative throughout his stay. Urine cultures came back positive for E. coli and was being covered by antibiotics. Her lactic acid was elevated initially and has trended down throughout her stay. She was discharged on clindamycin and Bactrim to cover for her infections. Wound Care has been following her left lower extremity wound and helping with cleaning and dressing the wound. They performed debridement at the bedside. They talked to the family about home wound care before patient's discharge. Her troponins were found to be elevated initially likely from demand ischemia per Cardiology, but she denied any chest pain. She was anticoagulated with therapeutic Lovenox. Cardiology was consulted and they recommended holding blood pressure medications and helped to manage the patient's fluid status. The patient has known CKD stage 2 and her BUN and creatinine were elevated from baseline at presentation. This also continued to improve throughout her stay. Case management was consulted on this case due to several social issues. The patient signed and revoked her hospice services on 03/18/2018. PEDRO was also brought onto the case for patient refusal to go to prison placement. Her home situation has been deemed unsafe as she is a hoarder and home is infested with bedbugs. She is unable to care for herself and her son who is a minor, is is unable to care for her as she is morbidly obese, has multiple health problems that are poorly controlled. APS is going to follow up with the patient and the patient's family regarding the terms and conditions for the patient to be at home and remain at home. APS will make sure that family has arranged terrazzo polisher helper at home. Per APS, the family has 1 week to clean up the conditions of the home to make sure it is safe for both the patient and son. DISCHARGE INSTRUCTIONS: 1. Disposition: Stable, but guarded prognosis. 2. Diet: Regular textures with nectar thick liquids by spoon with known risk of aspiration; consistent carbohydrate, 1500 calories/heart-healthy diet type, the patient has received nutrition counseling. 3. Activity: As tolerated; hopeful for improvement in function, please use fall precautions. 4. APS will be following up for patient home safety. 5. The patient's PCP is Dr. Jaguar Hughes at [facility] and follow up should be arranged on a p.r.n. basis, however, within 1 week is recommended upon hospital discharge. JLUIS
--- NOTE | 2018-03-20 19:41 | ADD-PRG ---
ADDENDUM DATE OF SERVICE: 03/19/2018 Please see the note from Dr. Bell, for which I agree. This is an unfortunate 63-year-old female with numerous medical problems including obstructi ve sleep apnea, for which she actually has a tracheostomy. She has a PEG tube I am assuming from pos sible previous stroke or something similar, but actually was on hospice patient until she came in for worsening leg wounds after a fall. Troponin level was high as possible and STEMI per Cardiology, bu t they really worked planning on making any changes. The patient will be discharged today on p.o. Ba ctrim and clindamycin. It sounds like family how to do wound care because home health has refu sed to go to their house secondary to the fact that the patient or the family and [facility] is even apparently involved because of just the situation at home. We will send her out on the p.o. antibiotics and continue all the other home medications as the same.
== END 2018-03-19 13:35 | disposition home or self-care (01) | DRG 871 ==
LOC: ERS 11:06 → 2NO 17:31
PROVIDERS: ADMIT Family Medicine; ATTEND Family Medicine
DX: A41.9 Sepsis, unspecified organism (principal); I21.3 ST elevation (STEMI) myocardial infarction of unspecified site; L03.116 Cellulitis of left lower limb; L03.115 Cellulitis of right lower limb; J96.11 Chronic respiratory failure with hypoxia; E66.2 Morbid (severe) obesity with alveolar hypoventilation; E87.2 Acidosis; Z68.43 Body mass index [BMI] 50.0-59.9, adult; N18.2 Chronic kidney disease, stage 2 (mild); I12.9 Hypertensive chronic kidney disease with stage 1 through stage 4 chronic kidney disease, or unspecified chronic kidney disease; K21.9 Gastro-esophageal reflux disease without esophagitis; K74.60 Unspecified cirrhosis of liver; F32.9 Major depressive disorder, single episode, unspecified; E78.5 Hyperlipidemia, unspecified; E78.00 Pure hypercholesterolemia, unspecified; I87.8 Other specified disorders of veins; G47.33 Obstructive sleep apnea (adult) (pediatric); E66.01 Morbid (severe) obesity due to excess calories; E03.9 Hypothyroidism, unspecified; E80.6 Other disorders of bilirubin metabolism; Z90.49 Acquired absence of other specified parts of digestive tract; Z79.82 Long term (current) use of aspirin; Z79.899 Other long term (current) drug therapy; Z93.0 Tracheostomy status
CPT/HCPCS: 36415; 71045; 74176; 76999; 80048; 80053; 80202; 81001; 82805; 83605; 84484; 85014; 85018; 85025; 85049; 85610; 85730; 87040; 87077; 87086; 87186; 93005; 94644; 96365; 96375; A4216; G8978-GP-CL; G8979-GP-CK; G8996-GN-CJ; G8996-GN-CK; G8997-GN-CJ; G8997-GN-CK; J0696; J1650; J2270; J3370; J7050; J7611

== ENCOUNTER 2018-04-08 16:51 | Inpatient (IN) | payer OTHER ==
[2018-04-08] MEDS ORDERED: Ondansetron HCl/PF 4 MG/2 ML Vial SLOW IVP PRN (17:13)
[2018-04-08] MEDS ORDERED: Bisacodyl 5 MG TAB PO PRN (17:13)
[2018-04-08] MEDS ORDERED: Acetaminophen 500 MG TAB PO PRN (17:14)
[2018-04-08 17:37] VITALS: BMI 59.4
--- NOTE | 2018-04-08 17:38 | PDOC.FPRHP ---
- History of Present Illness Chief Complaint: RLE wound/infection History of Present Illness: Ms Springer is a 63 yo female with pmh of DM2, HTN, anxiety/depression, chronic trach 2/2 obesity hypoventilation, HFpEF, cirrhosis and a recent hospitalization for LLE cellulitis here with complaint of LLE pain. Discharged on 03/19/18 on Clindamycin and Bactrim, pt reports not picking meds up from the pharmacy until 04/01/18. She has had increasing pain, drainage and a new foul odor from LLE wound. Also endorses new open area on RLE proximal to lateral malleolus. Denies fevers, chills, diarrhea. - Allergies/Adverse Reactions Allergies Allergy/AdvReac Type Severity Reaction Status Date / Time Penicillins Allergy Intermediate Rash Verified 04/08/18 17:20 amoxicillin [Amoxicillin] Allergy Verified 04/08/18 17:20 - Home Medications Medication Instructions Recorded Confirmed Type Ferrous Sulfate 325 mg PO BID 12/20/17 04/08/18 History Furosemide [Lasix] 80 mg PO DAILY 12/20/17 04/08/18 History Levothyroxine Sodium [Levoxyl] 1 tablet PO QAM 12/20/17 04/08/18 History Pantoprazole [Protonix] 40 mg PO DAILY 12/20/17 04/08/18 History Gabapentin 300 mg PO BID #60 capsule 12/24/17 04/08/18 Rx Potassium Chloride [K-Dur] 20 meq PO DAILY #30 tab 12/24/17 04/08/18 Rx Acetaminophen [Tylenol Regular 650 mg PO Q4H PRN tab 01/21/18 04/08/18 Rx Strength] Aspirin [Aspirin Chewable Tablet] 81 mg PO QAM 04/09/18 04/09/18 History Ferrous Sulfate 325 mg PO BID 04/09/18 04/09/18 History Metolazone 5 mg PO MWF 04/09/18 04/09/18 History Nystatin [Nystatin Powder] 1 g TOP TID 04/09/18 04/09/18 History Pantoprazole [Protonix] 40 mg PO QAM 04/09/18 04/09/18 History Spironolactone [Aldactone] 12.5 mg PO QAM 04/09/18 04/09/18 History Tramadol HCl [Tramadol HCl ER] 300 mg PO Q6H 04/09/18 04/09/18 History - History PMHx: KATE/OHS s/p trach HTN HLD OA, bilateral Morbid Obesity MDD pAF Hypothyroidism dCHF COPD Macrocytic Anemia Elevated Liver Enzymes, Cirrhosis Chronic venous stasis GERD CKD II Panniculitis PSHx: tracheostomy cholecystectomy Allergies NKDA FHx:NA Social: hx of tobacco use, denies Etoh and drug use - Review of Systems General: denies: fever/chills, night sweats Eyes: denies: vision changes ENT: denies: nasal congestion, rhinorrhea Respiratory: denies: cough, congestion, shortness of breath Cardiovascular: reports: edema. denies: chest pain Gastrointestinal: denies: nausea, vomiting, abdominal pain Genitourinary: denies: dysuria Skin: reports: lesions - Vital signs BP: 118/68 HR: 104 RR: 22 Tmax: 98.7F Pox: 89% on Trach Wt: 147.4kg - Physical Exam Constitutional: NAD, awake, alert and oriented, well developed HEENT: normocephalic and atraumatic, other (trach present) Neck: supple FMR H&P: Results - Labs Result Diagrams: 04/08/18 17:49 04/08/18 17:49 FMR H&P: A/P - Problem List (1) Bilateral cellulitis of lower leg Current Visit: No Status: Acute Code(s): L03.116 - CELLULITIS OF LEFT LOWER LIMB; L03.115 - CELLULITIS OF RIGHT LOWER LIMB (2) Cellulitis of right lower extremity Current Visit: No Status: Acute Code(s): L03.115 - CELLULITIS OF RIGHT LOWER LIMB (3) Chronic a-fib Current Visit: No Status: Acute Code(s): I48.2 - CHRONIC ATRIAL FIBRILLATION (4) Chronic respiratory failure Current Visit: No Status: Chronic Code(s): J96.10 - CHRONIC RESPIRATORY FAILURE, UNSP W HYPOXIA OR HYPERCAPNIA (5) Constipation Current Visit: No Status: Acute Code(s): K59.00 - CONSTIPATION, UNSPECIFIED (6) Diabetic neuropathy Current Visit: No Status: Acute Code(s): E11.40 - TYPE 2 DIABETES MELLITUS WITH DIABETIC NEUROPATHY, UNSP (7) Esophageal varices in cirrhosis Current Visit: No Status: Acute Code(s): K74.60 - UNSPECIFIED CIRRHOSIS OF LIVER; I85.10 - SECONDARY ESOPHAGEAL VARICES WITHOUT BLEEDING (8) Fatty liver Current Visit: No Status: Acute Code(s): K76.0 - FATTY (CHANGE OF) LIVER, NOT ELSEWHERE CLASSIFIED (9) GERD (gastroesophageal reflux disease) Current Visit: No Status: Acute Code(s): K21.9 - GASTRO-ESOPHAGEAL REFLUX DISEASE WITHOUT ESOPHAGITIS (10) Metabolic alkalosis with respiratory acidosis Current Visit: No Status: Acute Code(s): E87.4 - MIXED DISORDER OF ACID- BASE BALANCE (11) Portal hypertension Current Visit: No Status: Acute Code(s): K76.6 - PORTAL HYPERTENSION (12) Tobacco abuse Current Visit: No Status: Acute Code(s): Z72.0 - TOBACCO USE (13) CKD (chronic kidney disease), stage II Current Visit: No Status: Chronic Priority: Medium Code(s): N18.2 - CHRONIC KIDNEY DISEASE, STAGE 2 (MILD) (14) Chronic anemia Current Visit: No Status: Chronic Code(s): D64.9 - ANEMIA, UNSPECIFIED (15) Cirrhosis Current Visit: No Status: Chronic Priority: Medium Code(s): K74.60 - UNSPECIFIED CIRRHOSIS OF LIVER Qualifiers: Hepatic cirrhosis type: unspecified hepatic cirrhosis Ascites presence: without ascites Qualified Code(s): K74.60 - Unspecified cirrhosis of liver (16) Depression Current Visit: No Status: Chronic Priority: Low Code(s): F32.9 - MAJOR DEPRESSIVE DISORDER, SINGLE EPISODE, UNSPECIFIED Qualifiers: Depression Type: major depressive disorder Major depression recurrence: recurrent Active/Remission status: in full remission Qualified Code(s): F33.42 - Major depressive disorder, recurrent, in full remission (17) Diabetes Current Visit: No Status: Chronic Code(s): E11.9 - TYPE 2 DIABETES MELLITUS WITHOUT COMPLICATIONS (18) Diastolic CHF Current Visit: No Status: Chronic Code(s): I50.30 - UNSPECIFIED DIASTOLIC ( CONGESTIVE) HEART FAILURE (19) End stage COPD Current Visit: No Status: Chronic Code(s): J44.9 - CHRONIC OBSTRUCTIVE PULMONARY DISEASE, UNSPECIFIED (20) GERD (gastroesophageal reflux disease) Current Visit: No Status: Chronic Priority: Medium Code(s): K21.9 - GASTRO -ESOPHAGEAL REFLUX DISEASE WITHOUT ESOPHAGITIS (21) HTN (hypertension) Current Visit: No Status: Chronic Priority: Medium Code(s): I10 - ESSENTIAL (PRIMARY) HYPERTENSION (22) History of CVA (cerebrovascular accident) Current Visit: No Status: Chronic Code(s): Z86.73 - PRSNL HX OF TIA (TIA), AND CEREB INFRC W/O RESID DEFICITS (23) Hyperlipemia Current Visit: No Status: Chronic Priority: Medium Code(s): E78.5 - HYPERLIPIDEMIA, UNSPECIFIED Qualifiers: Hyperlipidemia type: mixed hyperlipidemia Qualified Code(s): E78.2 - Mixed hyperlipidemia (24) KATE (obstructive sleep apnea) Current Visit: No Status: Chronic Code(s): G47.33 - OBSTRUCTIVE SLEEP APNEA (ADULT) (PEDIATRIC) (25) Obesity, morbid Current Visit: No Status: Chronic Priority: Medium Code(s): E66.01 - MORBID (SEVERE) OBESITY DUE TO EXCESS CALORIES (26) Panniculitis Current Visit: No Status: Chronic Code(s): M79.3 - PANNICULITIS, UNSPECIFIED (27) Paroxysmal a-fib Current Visit: No Status: Chronic Code(s): I48.0 - PAROXYSMAL ATRIAL FIBRILLATION (28) Stasis dermatitis of both legs Current Visit: No Status: Chronic Priority: Low Code(s): I87.2 - VENOUS INSUFFICIENCY (CHRONIC) (PERIPHERAL) (29) Urinary incontinence Current Visit: No Status: Chronic Code(s): R32 - UNSPECIFIED URINARY INCONTINENCE - Plan Ms Springer is a 63yo female with pmh of multiple chronic conditions presenting with Left leg cellulitis failed outpatient treatment and developing RLE cellulitis. Cellulitis of LLE and developing cellulitis of RLE - Hasn't followed up with wound care, previously on hospice - Xray shows no signs of osteomyelitis - Continue Vanc and Cefepime, pt allergic to penicillins - Blood and wound cultures pending - Watch margins - Obtain CBC, CMP, UA, lactic acid HTN, controlled - Restart home meds Obesity hypoventilation syndrome - Has trach currently spO2 89% - CPAP at night Cirrhosis - No ascites on imaging during last hospitalization - MELD score 15 with last INR - Monitor CMP - Continue spironolactone and lasix GERD - Continue home protonix CKD II - Obtain CMP CHF - Stable and euvolemic - Continue home meds Hypothyroidism - Continue home levothyroxine Anxiety/depression - Continue home meds DVT ppx: lovenox Diet: tube feed Code Status: Full Dispo: Pending treatment of LE cellulitis and placement likely to intermediate in [facility] vs Hospice. FMR H&P: Upper Level - Pertinent history HPI: 63 yo F with PMhx of KATE/OHS, T2DM, HTN, CHF and recent hospitalization for LLE cellulitis who presents as a direct admission from clinic for worsening cellulitis that has failed to respond to outpatient antibiotics. She was recently discharged mid-March on Clindamycin and Bactrim but did not pick them up until April 01. Since that time, the wound on her L arce has continued to increase in size and there is also now a wound on her R lateral lower extremity. She denies any history of trauma or recent falls. She is not sure if she has had any fever but endorses chills. - Pertinent findings Exam: Gen: alert and oriented x3. Tearful HEENT: PERRLA, EOMI, conjunctival non-injected. Tracheostomy in place CV: RRR RESP: Distant breath sounds Abd: soft, nontender, significant obesity Ext: LLE with large ulcerating lesion (approx. [id number]) on anterior L arce. Clear drainage. Also area of induration proximal that is draining serosanguinous fluid. Neuro: No facial droop, equal movements in all extremities Skin: see extremity exam above CXR: Chronic findings Tib/Fib and ankle x-rays: No acute bony abnormality. Demineralization of bones. Soft tissue swelling of arce. Labs: Hgb 10.3/Hct 31.4, MCV 107, Plt 159, Na 135, Cr 1.22, GFR 45, Glu 119, Lactic acid 0.9, AST 44, ALT 15, Alk phos 179, T prot 9, Alb 2.5 - Plan Date/Time: 04/08/18 1737 A/P: 63 yo F with numerous comorbidities here with BL LE cellulitis that has failed outpatient therapy 1.Cellulitis: BCx and Wound Cx pending. Vanc and Cefepime as patient is allergic to PCN. Dosing confirmed with pharmacy as GFR corrects to approximately 60. Borders marked. If no improvement, will likely need prompt involvement of surgery for possible amputation but no e/o bone involvement on preliminary xray. Lactic acid negative. 2.HTN: WNL. Continue home Spironolactone, Metalozone 3.T2DM: Last a1c 5.7 in 10/2017. Will recheck as this may impact wound healing. Not on medications at this time 4.Iron deficiency anemia: Continue iron PO. Recommend OP iron studies. 5.GERD: Continue Protonix 6.Depression: Continue Wellbutrin. Patient tearful on exam. Numerous goals of care conversations convey patients desire to do whatever needs to be done to prolong her life, even if it involves additional suffering. 7.Levothyroxine: Most recent TSH 1.940 in clinic. Continue current dosing. 8.CHF: Unable to evaluate diastolic dysfunction on last echo in Jul 2017. Will use caution with fluids. Lasix. Spironolactone. K supplementation. 9.Peripheral neuropathy/chronic pain: Continue home gabapentin. Has tramadol at home PRN. 10.KATE/OHS: Tracheostomy in place. Continue O2 via trach collar, goal O2 sat 88% . 11.Paroxysmal atrial fibrillation: Not on chronic anticoagulation 2/2 severe bleeding complication on prior hospitalization 12.HLD: Not on statin. Significant polypharmacy. Should be evaluated with FLP outpatient. Continue home ASA. PPX: Lovenox CODE: FULL I, Yareli Menjivar MD, have evaluated this patient and agree with findings/plan as outlined by mechanical engineering intern resident. Pertinent changes/additions are listed here. Attending Addendum - Attending Addendum Date/Time: 04/08/18 5712 I personally evaluated the patient and discussed the management with Dr. Carlson. I agree with the History, Examination, Assessment and Plan documented above with any addition or exceptions noted below. The patient was admitted from the clinic for failed treatment of lower extremity cellulitis. The patient has worsening pain, redness, swelling and purulent drainage. She also has a new ulceration on the LLE. APS is involved and patient will likely need intermediate placement. Will treat with IV antibiotics and wound care. Case management will be consulted. May need surgical debridement.
--- NOTE | 2018-04-08 17:54 | RAD ---
CHEST ONE VIEW: 04/08/18 HISTORY: Dyspnea. COMPARISON: 03/15/18. FINDINGS: The cardiac silhouette is magnified and upper limits of normal in size. Shallow inspiration accentuat es pulmonary markings. Mediastinum is midline with aortic calcification and a tracheostomy appliance. No lobar consolidation or evidence of pneumothorax. IMPRESSION: Chronic type findings are stable. No active cardiopulmonary abnormalities are demonstrated. POS: [facility]
[2018-04-08] MEDS ORDERED: Acetaminophen 325 MG TAB PO PRN (18:08)
[2018-04-08 18:12] LABS: #Basophils 0.1 thou/uL (0.0-0.2); #Eosinphils 0.3 thou/uL (0.0-0.7); #Lymphocytes 1.7 thou/uL (1.20-3.40); #Monocytes 0.6 thou/uL (0.11-0.59); #Neutrophils 3.6 thou/uL (1.40-6.50); %Basophils 0.8 % (0.0-1.0); %Eosinophils 5.2 % (0.0-10.0); %Lymphocytes 27.2 % (21.0-51.0); %Monocytes 9.7 % (0.0-10.0); %Neutrophils 57.1 % (42.0-75.0); Hemoglobin 10.3 g/dL (12.0-16.0); Mean Corpuscular HGB CONC 32.9 g/dL (32.0-36.0); Mean Corpuscular Hemoglobin 35.3 pg (27.0-31.0); Mean Platelet Volume 7.6 fL (7.4-10.4); Platelet Count 159 thou/uL (130-400); RBC Distribution Width 16.5 % (11.5-14.5); Red Blood Cell (RBC) Count 2.92 mill/uL (4.20-5.40); White Blood Cell (WBC) Count 6.2 thou/uL (4.8-10.8)
[2018-04-08 18:29] LABS: ALT (SGPT) 15 U/L (8-55); AST (SGOT) 44 U/L (5-34); Albumin 2.5 g/dL (3.4-4.8); Alkaline Phosphatase 179 U/L (40-150); Anion Gap 14 mmol/L (10-20); BUN (Urea Nitrogen) 15 mg/dL (9.8-20.1); Bilirubin, Total 1.4 mg/dL (0.2-1.2); Calc. Creatinine Clearance 113 mL/min (70-130); Calcium 8.5 mg/dL (7.8-10.44); Carbon Dioxide 26 mmol/L (23-31); Chloride 100 mmol/L (98-107); Estimated GFR-MDRD 45; Globulin 6.5 g/dL (2.4-3.5); Glucose 119 mg/dL (80-115); Potassium 4.9 mmol/L (3.5-5.1); Sodium 135 mmol/L (136-145)
[2018-04-08 18:41] LABS: Anisocytosis SLIGHT = 6-15 cells (100X) (0-5/hpf); MDiff Complete? YES; Macrocytosis SLIGHT = 6-15 cells (100X) (0-5/hpf); PLT Morphology Comment Appears Adequate; Polychromasia SLIGHT = 2-3 cells (100X) (0-2/hpf)
[2018-04-08] MEDS: Vancomycin HCl 1 GM in Premix Bag 1 BAG IVPB SCH (18:55)
--- NOTE | 2018-04-08 20:37 | RAD ---
LEFT ANKLE THREE VIEWS: 04/08/18 HISTORY: Left ankle pain. Osteomyelitis. COMPARISON: 06/15/17. FINDINGS: Neuropathic joint appearance of the ankle and hindfoot is similar to the previous exam. Ankle mortise remains intact. Chronic deformity of the lateral malleolus is unchanged. Osseous structures are srinivas edly demineralized. No aggressive osseous destruction of the ankle is apparent. IMPRESSION: Chronic type findings are stable. No reliable radiographic evidence of aggressive osseous destruction . POS: [facility]
[2018-04-08] MEDS: Ferrous Sulfate 325 MG TAB PO SCH (20:38)
[2018-04-08] MEDS: Cefepime 2 GM in Sodium Chloride 0.9% 100 ML IVPB SCH (20:39)
[2018-04-08] MEDS: buPROPion HCl 100 MG TAB PO SCH (20:39)
--- NOTE | 2018-04-08 20:39 | RAD ---
LEFT LOWER LEG TWO VIEWS: 04/08/18 HISTORY: Left leg pain. Infection. COMPARISON: 07/08/17. FINDINGS: Osseous structures are demineralized. Tibia and fibula are intact. Degenerative changes of the knee a nd ankle. Soft tissue swelling is evident anterior to the upper arce. No soft tissue gas or aggressiv e osseous destruction are apparent. IMPRESSION: Chronic type findings are stable. POS: [facility]
[2018-04-08] MEDS: traMADol HCl 50 MG TAB PO PRN (20:45)
[2018-04-08] MEDS ORDERED: Piperacillin/Tazobactam 4.5 GM in Sodium Chloride 0.9% 100 ML IVPB SCH (22:00)
[2018-04-08 22:02] LABS: Lactic Acid 0.9 mmol/L (0.5-2.2)
[2018-04-09 01:04] LABS: Bilirubin Negative (Negative); Blood, Urine Negative (Negative); Clarity CLEAR (Clear); Glucose, Urine (Dipstick) Negative (Negative); Leukocyte Negative (Negative); Nitrite Negative (Negative); Protein, Urine (Dipstick) Negative (Neg-Trace); pH, Urine 7.5 (5.0-9.0)
[2018-04-09 01:07] LABS: Bacteria/HPF None Seen HPF (None Seen); Hyaline Casts/LPF 0-3 HYALINE CAST LPF (0-3 Hyaline); Pathc Cast-AUWi Flag 0.29 (0-2.49); RBC/HPF 0-3 HPF (0-3); Squamous Epithelial 0-3 HPF (0-3); WBC/HPF 0-3 HPF (0-3)
[2018-04-09] MEDS: Levothyroxine Sodium 112 MCG TAB PO SCH (05:17)
[2018-04-09] MEDS: Vancomycin HCl 1 GM in Premix Bag 1 BAG IVPB SCH ×2 (05:17→18:31)
[2018-04-09 06:04] LABS: Hemoglobin A1c 4.9 % (4.0-6.0)
[2018-04-09] MEDS: buPROPion HCl 100 MG TAB PO SCH ×2 (09:04→20:42)
[2018-04-09] MEDS: Cefepime 2 GM in Sodium Chloride 0.9% 100 ML IVPB SCH ×2 (09:04→20:42)
[2018-04-09] MEDS: Aspirin 81 mg Enteric Coated Tablet PO SCH (09:05)
[2018-04-09] MEDS: Ferrous Sulfate 325 MG TAB PO SCH ×2 (09:05→20:49)
[2018-04-09] MEDS: Gabapentin 300 MG CAP PO SCH ×2 (09:05→20:50)
[2018-04-09] MEDS: Potassium Chloride 20 MEQ TAB PO SCH (09:05)
[2018-04-09] MEDS: Furosemide 40 MG TAB PO SCH (09:05)
[2018-04-09] MEDS: Spironolactone 25 MG TAB PO SCH (09:05)
[2018-04-09] MEDS: Enoxaparin Sodium 40 MG/0.4 ML SYRINGE SC SCH (09:05)
[2018-04-09] MEDS: Nystatin Powder 15 GM BOT TOP SCH ×3 (11:02→20:51)
[2018-04-09] MEDS: traMADol HCl 50 MG TAB PO PRN (12:29)
--- NOTE | 2018-04-09 13:58 | PDOC.FM ---
- Subjective Subjective: Patient states she feels good today. She is in no pain. No complaints. - Objective Vital Signs & Weight: Vital Signs (12 hours) Temp Pulse Resp BP BP Pulse Ox 04/09/18 11:00 98.7 F 82 20 85/56 L 99 04/09/18 08:00 98.7 F 82 20 99 04/09/18 07:35 98.6 F 82 20 98/60 99 04/09/18 06:46 98 04/09/18 04:40 99.1 F 80 20 115/67 96 Weight Admit Weight 147.418 kg Weight 147.418 kg Result Diagrams: 04/08/18 17:49 04/08/18 17:49 <Mary Fernandez - Last Filed: 04/09/18 15:10> - Objective Vital Signs & Weight: Vital Signs (12 hours) Temp Pulse Pulse Resp BP BP Pulse Ox 04/09/18 22:00 98.5 F 75 22 H 99 04/09/18 20:00 98.5 F 75 22 H 96/59 L 99 04/09/18 18:49 95 04/09/18 16:00 98.3 F 72 20 111/67 97 04/09/18 14:40 80 84/39 L Weight Admit Weight 147.418 kg Weight 147.418 kg I&O: 04/08/18 04/09/18 04/10/18 06:59 06:59 06:59 Intake Total 900 Output Total 700 Balance 200 Result Diagrams: 04/08/18 17:49 04/08/18 17:49 <Maribel Siddiqui - Last Filed: 04/09/18 23:11> Phys Exam - Physical Examination Constitutional: NAD morbidly obese Respiratory: no wheezing, no rales, no rhonchi Cardiovascular: RRR, no significant murmur difficult to appreciate post tibial or dorsalis pedis pulses. Patient has tough skin in foot and ankles. Gastrointestinal: soft, non-tender G tube in place Musculoskeletal: no edema <Mary Fernandez - Last Filed: 04/09/18 15:10> Dx/Plan (1) Cellulitis of leg Code(s): L03.119 - CELLULITIS OF UNSPECIFIED PART OF LIMB Status: Acute Qualifiers: Laterality: left Qualified Code(s): L03.116 - Cellulitis of left lower limb Plan: see comment on wound. cont abx. (2) Wound, open, lower limb with complication Code(s): S81.809A - UNSPECIFIED OPEN WOUND, UNSPECIFIED LOWER LEG, INIT ENCNTR Status: Acute Qualifiers: Encounter type: initial encounter Laterality: left Qualified Code(s): S81.802A - Unspecified open wound, left lower leg, initial encounter Plan: Concern for healing in this wound. Concern for wound tracking and further abscess formation and possible need for debridement. Have consulted CV surg for non urgent evaluation. Continue antibiotics at this time. Await surgery recs. Concern for PVD. (3) Chronic respiratory failure Code(s): J96.10 - CHRONIC RESPIRATORY FAILURE, UNSP W HYPOXIA OR HYPERCAPNIA Status: Chronic (4) Congestive heart failure (CHF) Code(s): I50.9 - HEART FAILURE, UNSPECIFIED Status: Chronic Qualifiers: Heart failure type: diastolic Plan: not in acute exacerbation. cont home meds for now. fluid restrict to 1800 ml. (5) Hyperlipemia Code(s): E78.5 - HYPERLIPIDEMIA, UNSPECIFIED Status: Chronic Qualifiers: Hyperlipidemia type: mixed hyperlipidemia Qualified Code(s): E78.2 - Mixed hyperlipidemia Plan: cont ASA and consider statin in outpatient setting. (6) Hypertension Code(s): I10 - ESSENTIAL (PRIMARY) HYPERTENSION Status: Chronic Qualifiers: Hypertension type: essential hypertension Qualified Code(s): I10 - Essential (primary) hypertension Plan: cont home meds (7) Hypothyroid Code(s): E03.9 - HYPOTHYROIDISM, UNSPECIFIED Status: Chronic Plan: cont home meds (8) Hypoventilation associated with obesity Code(s): E66.2 - MORBID (SEVERE) OBESITY WITH ALVEOLAR HYPOVENTILATION Status : Chronic Plan: trach in place. Cont trach collar O2 (9) KATE (obstructive sleep apnea) Code(s): G47.33 - OBSTRUCTIVE SLEEP APNEA (ADULT) (PEDIATRIC) Status: Chronic (10) Obesity, morbid Code(s): E66.01 - MORBID (SEVERE) OBESITY DUE TO EXCESS CALORIES Status: Chronic Plan: - Plan Plan: Of note, this patient does not have diabetes. She has not had an A1C elevated to even pre-diabetes. cont current mgmt with CV surg consult. <Mary Fernandez - Last Filed: 04/09/18 15:10> (1) Bilateral cellulitis of lower leg Code(s): L03.116 - CELLULITIS OF LEFT LOWER LIMB; L03.115 - CELLULITIS OF RIGHT LOWER LIMB Status: Acute (2) Cellulitis of right lower extremity Code(s): L03.115 - CELLULITIS OF RIGHT LOWER LIMB Status: Acute (3) Chronic a-fib Code(s): I48.2 - CHRONIC ATRIAL FIBRILLATION Status: Acute (4) Chronic respiratory failure Code(s): J96.10 - CHRONIC RESPIRATORY FAILURE, UNSP W HYPOXIA OR HYPERCAPNIA Status: Chronic (5) Constipation Code(s): K59.00 - CONSTIPATION, UNSPECIFIED Status: Acute (6) Diabetic neuropathy Code(s): E11.40 - TYPE 2 DIABETES MELLITUS WITH DIABETIC NEUROPATHY, UNSP Status: Acute (7) Esophageal varices in cirrhosis Code(s): K74.60 - UNSPECIFIED CIRRHOSIS OF LIVER; I85.10 - SECONDARY ESOPHAGEAL VARICES WITHOUT BLEEDING Status: Acute (8) Fatty liver Code(s): K76.0 - FATTY (CHANGE OF) LIVER, NOT ELSEWHERE CLASSIFIED Status: Acute (9) GERD (gastroesophageal reflux disease) Code(s): K21.9 - GASTRO-ESOPHAGEAL REFLUX DISEASE WITHOUT ESOPHAGITIS Status: Acute (10) Metabolic alkalosis with respiratory acidosis Code(s): E87.4 - MIXED DISORDER OF ACID-BASE BALANCE Status: Acute (11) Portal hypertension Code(s): K76.6 - PORTAL HYPERTENSION Status: Acute (12) Tobacco abuse Code(s): Z72.0 - TOBACCO USE Status: Acute (13) CKD (chronic kidney disease), stage II Code(s): N18.2 - CHRONIC KIDNEY DISEASE, STAGE 2 (MILD) Status: Chronic (14) Chronic anemia Code(s): D64.9 - ANEMIA, UNSPECIFIED Status: Chronic (15) Cirrhosis Code(s): K74.60 - UNSPECIFIED CIRRHOSIS OF LIVER Status: Chronic Qualifiers: Hepatic cirrhosis type: unspecified hepatic cirrhosis Ascites presence: without ascites Qualified Code(s): K74.60 - Unspecified cirrhosis of liver (16) Depression Code(s): F32.9 - MAJOR DEPRESSIVE DISORDER, SINGLE EPISODE, UNSPECIFIED Status : Chronic Qualifiers: Depression Type: major depressive disorder Major depression recurrence: recurrent Active/Remission status: in full remission Qualified Code(s): F33.42 - Major depressive disorder, recurrent, in full remission (17) Diabetes Code(s): E11.9 - TYPE 2 DIABETES MELLITUS WITHOUT COMPLICATIONS Status: Chronic (18) Diastolic CHF Code(s): I50.30 - UNSPECIFIED DIASTOLIC (CONGESTIVE) HEART FAILURE Status: Chronic (19) End stage COPD Code(s): J44.9 - CHRONIC OBSTRUCTIVE PULMONARY DISEASE, UNSPECIFIED Status: Chronic (20) GERD (gastroesophageal reflux disease) Code(s): K21.9 - GASTRO-ESOPHAGEAL REFLUX DISEASE WITHOUT ESOPHAGITIS Status: Chronic (21) HTN (hypertension) Code(s): I10 - ESSENTIAL (PRIMARY) HYPERTENSION Status: Chronic (22) History of CVA (cerebrovascular accident) Code(s): Z86.73 - PRSNL HX OF TIA (TIA), AND CEREB INFRC W/O RESID DEFICITS Status: Chronic (23) Hyperlipemia Code(s): E78.5 - HYPERLIPIDEMIA, UNSPECIFIED Status: Chronic Qualifiers: Hyperlipidemia type: mixed hyperlipidemia Qualified Code(s): E78.2 - Mixed hyperlipidemia (24) KATE (obstructive sleep apnea) Code(s): G47.33 - OBSTRUCTIVE SLEEP APNEA (ADULT) (PEDIATRIC) Status: Chronic (25) Obesity, morbid Code(s): E66.01 - MORBID (SEVERE) OBESITY DUE TO EXCESS CALORIES Status: Chronic (26) Panniculitis Code(s): M79.3 - PANNICULITIS, UNSPECIFIED Status: Chronic (27) Paroxysmal a-fib Code(s): I48.0 - PAROXYSMAL ATRIAL FIBRILLATION Status: Chronic (28) Stasis dermatitis of both legs Code(s): I87.2 - VENOUS INSUFFICIENCY (CHRONIC) (PERIPHERAL) Status: Chronic (29) Urinary incontinence Code(s): R32 - UNSPECIFIED URINARY INCONTINENCE Status: Chronic <Maribel Siddiqui - Last Filed: 04/09/18 23:11> Attending Addendum - Attending Addendum Date/Time: 04/09/18 0708 I personally evaluated the patient and discussed the management with Dr. Fernandez. I agree with the History, Examination, Assessment and Plan documented above with any addition or exceptions noted below. The patient was resting comfortably this morning. I saw her with respiratory therapy and removed her speaking valve as she should not be sleeping with it in. The left leg is still erythematous with thickened warm skin and ulcerations with purulent drainage. Continue antibiotics. Pulses are difficult to palpate with her swelling and PVD may be contributing to poor wound healing. We also learned that the antibiotics that were prescribed at the last hospitalization were not picked up for almost two weeks. Will discuss with surgery. <Maribel Siddiqui - Last Filed: 04/09/18 23:11>
[2018-04-10] MEDS: Levothyroxine Sodium 112 MCG TAB PO SCH (05:29)
[2018-04-10 05:32] LABS: Vancomycin, Trough 17.6 ug/mL
[2018-04-10] MEDS: Vancomycin HCl 1 GM in Premix Bag 1 BAG IVPB SCH ×2 (06:03→18:07)
--- NOTE | 2018-04-10 07:13 | PDOC.FM ---
- Subjective Subjective: This morning Mrs. Springer states she has no pain. She denies issues with sleep or PO intake overnight. She is thankful for the care she is receiving here. She denies fevers, chills, or sweats. No N/V/D. - Objective MAR Reviewed: Yes Vital Signs & Weight: Vital Signs (12 hours) Temp Pulse Resp BP Pulse Ox 04/10/18 05:50 99 04/10/18 04:43 98.2 F 74 20 113/65 97 04/09/18 22:00 98.5 F 75 22 H 99 04/09/18 20:00 98.5 F 75 22 H 96/59 L 99 Weight Admit Weight 147.418 kg Weight 147.418 kg I&O: 04/09/18 04/10/18 04/11/18 06:59 06:59 06:59 Intake Total 1700 Output Total 700 Balance 1000 Result Diagrams: 04/10/18 06:43 04/10/18 06:43 <Amrit Hopper - Last Filed: 04/10/18 07:25> - Objective Vital Signs & Weight: Vital Signs (12 hours) Temp Pulse Resp BP Pulse Ox 04/10/18 08:00 97.8 F 77 18 04/10/18 07:40 97.8 F 77 18 104/70 100 04/10/18 05:50 99 04/10/18 04:43 98.2 F 74 20 113/65 97 Weight Admit Weight 147.418 kg Weight 147.418 kg I&O: 04/09/18 04/10/18 04/11/18 06:59 06:59 06:59 Intake Total 1700 Output Total 700 Balance 1000 Result Diagrams: 04/10/18 06:43 04/10/18 06:43 <Maribel Siddiqui - Last Filed: 04/10/18 16:07> Phys Exam - Physical Examination Constitutional: NAD HEENT: PERRLA, moist MMs Respiratory: no wheezing, no rhonchi Cardiovascular: RRR, no significant murmur Gastrointestinal: soft, non-tender, no distention pulses difficult to palpate 2/2 swelling Neurological: non-focal Psychiatric: A&O x 3 Deviation from normal: erythema has decreased from initial margins, wound dressed -: both lower extremities still warm and TTP <Amrit Hopper - Last Filed: 04/10/18 07:25> Dx/Plan (1) Wound, open, lower limb with complication Code(s): S81.809A - UNSPECIFIED OPEN WOUND, UNSPECIFIED LOWER LEG, INIT ENCNTR Status: Acute Qualifiers: Encounter type: initial encounter Laterality: left Qualified Code(s): S81.802A - Unspecified open wound, left lower leg, initial encounter (2) Congestive heart failure (CHF) Code(s): I50.9 - HEART FAILURE, UNSPECIFIED Status: Chronic Qualifiers: Heart failure type: diastolic (3) Abdominal pain Code(s): R10.9 - UNSPECIFIED ABDOMINAL PAIN Status: Acute Qualifiers: Abdominal location: generalized Qualified Code(s): R10.84 - Generalized abdominal pain (4) Bilateral cellulitis of lower leg Code(s): L03.116 - CELLULITIS OF LEFT LOWER LIMB; L03.115 - CELLULITIS OF RIGHT LOWER LIMB Status: Acute (5) Chronic a-fib Code(s): I48.2 - CHRONIC ATRIAL FIBRILLATION Status: Acute (6) CKD (chronic kidney disease), stage II Code(s): N18.2 - CHRONIC KIDNEY DISEASE, STAGE 2 (MILD) Status: Chronic (7) Chronic anemia Code(s): D64.9 - ANEMIA, UNSPECIFIED Status: Chronic (8) Chronic respiratory failure Code(s): J96.10 - CHRONIC RESPIRATORY FAILURE, UNSP W HYPOXIA OR HYPERCAPNIA Status: Chronic (9) HTN (hypertension) Code(s): I10 - ESSENTIAL (PRIMARY) HYPERTENSION Status: Chronic (10) History of CVA (cerebrovascular accident) Code(s): Z86.73 - PRSNL HX OF TIA (TIA), AND CEREB INFRC W/O RESID DEFICITS Status: Chronic (11) Hypertension Code(s): I10 - ESSENTIAL (PRIMARY) HYPERTENSION Status: Chronic Qualifiers: Hypertension type: essential hypertension Qualified Code(s): I10 - Essential (primary) hypertension (12) Hypoventilation associated with obesity Code(s): E66.2 - MORBID (SEVERE) OBESITY WITH ALVEOLAR HYPOVENTILATION Status : Chronic (13) KATE (obstructive sleep apnea) Code(s): G47.33 - OBSTRUCTIVE SLEEP APNEA (ADULT) (PEDIATRIC) Status: Chronic (14) Obesity, morbid Code(s): E66.01 - MORBID (SEVERE) OBESITY DUE TO EXCESS CALORIES Status: Chronic (15) Venous stasis Code(s): I87.8 - OTHER SPECIFIED DISORDERS OF VEINS Status: Chronic (16) History of tobacco abuse Code(s): Z87.891 - PERSONAL HISTORY OF NICOTINE DEPENDENCE Status: Resolved Plan: history tobacco abuse - Plan Plan: A/P: 63 yo F with numerous comorbidities here with BL LE cellulitis that has failed outpatient therapy # bilateral Cellulitus w/ large wound on L, likely 2/2 PVD - bcx, wound cx pending - vanc and cefepime, pcn allergic - not meeting criteria for sepsis at this time - X-rays of L ankle and tibia show only chronic changes at this time - CV surgery consult - patient understand leg may not be salvageable and agrees to amputation if IV abx fail # Social Discord - 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 - 17 yo son is primary caregiver, no adult daycare coordinator in the home from 8-4 - APS involved, states patient needs NH placement - patient agrees to NH placement at this time but has flip-flopped in the past, wants to be in [facility] but may need to go to [place] as she owes money at [employer] , parent company of [employer] manages most NHs in [facility] - case management consulted # HTN - home meds # Hyperglycemia - A1C 4.9 # Iron def anemia - continue iron PO - outpatient iron studies # Code status - full - multiple discussion regarding goals of care. As of long conversation in office 04/08/18 patient wants "to live as long as possible no matter the pain or suffering." - palliative care consulted for symptom management # hypothyroid - home meds # chronic pain - gabepentin - states pain well-controlled at this time # pAfib - not on chronic anticoagulation 2/2 severe bleeding complication on earlier hospitalization - ASA Code: full Fluids: PO Diet: heart healthy Dispo: pending CV surg recs, care home placement <Amrit Hopper - Last Filed: 04/10/18 07:25> (1) Bilateral cellulitis of lower leg Code(s): L03.116 - CELLULITIS OF LEFT LOWER LIMB; L03.115 - CELLULITIS OF RIGHT LOWER LIMB Status: Acute (2) Cellulitis of right lower extremity Code(s): L03.115 - CELLULITIS OF RIGHT LOWER LIMB Status: Acute (3) Chronic a-fib Code(s): I48.2 - CHRONIC ATRIAL FIBRILLATION Status: Acute (4) Chronic respiratory failure Code(s): J96.10 - CHRONIC RESPIRATORY FAILURE, UNSP W HYPOXIA OR HYPERCAPNIA Status: Chronic (5) Constipation Code(s): K59.00 - CONSTIPATION, UNSPECIFIED Status: Acute (6) Diabetic neuropathy Code(s): E11.40 - TYPE 2 DIABETES MELLITUS WITH DIABETIC NEUROPATHY, UNSP Status: Acute (7) Esophageal varices in cirrhosis Code(s): K74.60 - UNSPECIFIED CIRRHOSIS OF LIVER; I85.10 - SECONDARY ESOPHAGEAL VARICES WITHOUT BLEEDING Status: Acute (8) Fatty liver Code(s): K76.0 - FATTY (CHANGE OF) LIVER, NOT ELSEWHERE CLASSIFIED Status: Acute (9) GERD (gastroesophageal reflux disease) Code(s): K21.9 - GASTRO-ESOPHAGEAL REFLUX DISEASE WITHOUT ESOPHAGITIS Status: Acute (10) Metabolic alkalosis with respiratory acidosis Code(s): E87.4 - MIXED DISORDER OF ACID-BASE BALANCE Status: Acute (11) Portal hypertension Code(s): K76.6 - PORTAL HYPERTENSION Status: Acute (12) Tobacco abuse Code(s): Z72.0 - TOBACCO USE Status: Acute (13) CKD (chronic kidney disease), stage II Code(s): N18.2 - CHRONIC KIDNEY DISEASE, STAGE 2 (MILD) Status: Chronic (14) Chronic anemia Code(s): D64.9 - ANEMIA, UNSPECIFIED Status: Chronic (15) Cirrhosis Code(s): K74.60 - UNSPECIFIED CIRRHOSIS OF LIVER Status: Chronic Qualifiers: Hepatic cirrhosis type: unspecified hepatic cirrhosis Ascites presence: without ascites Qualified Code(s): K74.60 - Unspecified cirrhosis of liver (16) Depression Code(s): F32.9 - MAJOR DEPRESSIVE DISORDER, SINGLE EPISODE, UNSPECIFIED Status : Chronic Qualifiers: Depression Type: major depressive disorder Major depression recurrence: recurrent Active/Remission status: in full remission Qualified Code(s): F33.42 - Major depressive disorder, recurrent, in full remission (17) Diabetes Code(s): E11.9 - TYPE 2 DIABETES MELLITUS WITHOUT COMPLICATIONS Status: Chronic (18) Diastolic CHF Code(s): I50.30 - UNSPECIFIED DIASTOLIC (CONGESTIVE) HEART FAILURE Status: Chronic (19) End stage COPD Code(s): J44.9 - CHRONIC OBSTRUCTIVE PULMONARY DISEASE, UNSPECIFIED Status: Chronic (20) GERD (gastroesophageal reflux disease) Code(s): K21.9 - GASTRO-ESOPHAGEAL REFLUX DISEASE WITHOUT ESOPHAGITIS Status: Chronic (21) HTN (hypertension) Code(s): I10 - ESSENTIAL (PRIMARY) HYPERTENSION Status: Chronic (22) History of CVA (cerebrovascular accident) Code(s): Z86.73 - PRSNL HX OF TIA (TIA), AND CEREB INFRC W/O RESID DEFICITS Status: Chronic (23) Hyperlipemia Code(s): E78.5 - HYPERLIPIDEMIA, UNSPECIFIED Status: Chronic Qualifiers: Hyperlipidemia type: mixed hyperlipidemia Qualified Code(s): E78.2 - Mixed hyperlipidemia (24) KATE (obstructive sleep apnea) Code(s): G47.33 - OBSTRUCTIVE SLEEP APNEA (ADULT) (PEDIATRIC) Status: Chronic (25) Obesity, morbid Code(s): E66.01 - MORBID (SEVERE) OBESITY DUE TO EXCESS CALORIES Status: Chronic (26) Panniculitis Code(s): M79.3 - PANNICULITIS, UNSPECIFIED Status: Chronic (27) Paroxysmal a-fib Code(s): I48.0 - PAROXYSMAL ATRIAL FIBRILLATION Status: Chronic (28) Stasis dermatitis of both legs Code(s): I87.2 - VENOUS INSUFFICIENCY (CHRONIC) (PERIPHERAL) Status: Chronic (29) Urinary incontinence Code(s): R32 - UNSPECIFIED URINARY INCONTINENCE Status: Chronic <Maribel Siddiqui - Last Filed: 04/10/18 16:07> Attending Addendum - Attending Addendum Date/Time: 04/10/18 0805 I personally evaluated the patient and discussed the management with Dr. Hopper. I agree with the History, Examination, Assessment and Plan documented above with any addition or exceptions noted below. The patient remains on IV antibiotics. Wound care is consulted. She remains on IV antibiotics. May need further debridement of the left lower extremity. Will need care home placement at the conclusion of her hospital stay. <Maribel Siddiqui - Last Filed: 04/10/18 16:07>
[2018-04-10 07:14] LABS: #Eosinphils 0.6 thou/uL (0.0-0.7); #Lymphocytes 1.5 thou/uL (1.20-3.40); #Monocytes 0.6 thou/uL (0.11-0.59); #Neutrophils 2.6 thou/uL (1.40-6.50); %Basophils 0.6 % (0.0-1.0); %Eosinophils 10.7 % (0.0-10.0); %Lymphocytes 28.7 % (21.0-51.0); %Monocytes 11.1 % (0.0-10.0); Hemoglobin 8.7 g/dL (12.0-16.0); Mean Corpuscular HGB CONC 31.9 g/dL (32.0-36.0); Mean Corpuscular Hemoglobin 34.4 pg (27.0-31.0); Mean Platelet Volume 7.6 fL (7.4-10.4); Platelet Count 124 thou/uL (130-400); RBC Distribution Width 16.8 % (11.5-14.5); Red Blood Cell (RBC) Count 2.51 mill/uL (4.20-5.40); White Blood Cell (WBC) Count 5.3 thou/uL (4.8-10.8)
[2018-04-10 07:17] LABS: ALT (SGPT) 10 U/L (8-55); AST (SGOT) 27 U/L (5-34); Alkaline Phosphatase 131 U/L (40-150); Anion Gap 10 mmol/L (10-20); BUN (Urea Nitrogen) 15 mg/dL (9.8-20.1); Bilirubin, Total 1.4 mg/dL (0.2-1.2); Calc. Creatinine Clearance 160 mL/min (70-130); Calcium 8.1 mg/dL (7.8-10.44); Carbon Dioxide 29 mmol/L (23-31); Chloride 100 mmol/L (98-107); Estimated GFR-MDRD 67; Globulin 5.1 g/dL (2.4-3.5); Glucose 85 mg/dL (80-115); Protein, Total 7.1 g/dL (6.0-8.3); Sodium 135 mmol/L (136-145)
[2018-04-10] MEDS: Cefepime 2 GM in Sodium Chloride 0.9% 100 ML IVPB SCH ×2 (08:23→20:09)
[2018-04-10] MEDS: Potassium Chloride 20 MEQ TAB PO SCH (08:25)
[2018-04-10] MEDS ORDERED: Lidocaine 1% (PF) 30 ML VIAL ONE (08:27)
[2018-04-10] MEDS: Aspirin 81 mg Enteric Coated Tablet PO SCH (08:31)
[2018-04-10] MEDS: Ferrous Sulfate 325 MG TAB PO SCH ×2 (08:31→20:09)
[2018-04-10] MEDS: Gabapentin 300 MG CAP PO SCH ×2 (08:32→20:10)
[2018-04-10] MEDS: Furosemide 40 MG TAB PO SCH (08:32)
[2018-04-10] MEDS: traMADol HCl 50 MG TAB PO PRN (08:34)
[2018-04-10] MEDS: buPROPion HCl 100 MG TAB PO SCH ×2 (08:41→20:09)
[2018-04-10] MEDS: Enoxaparin Sodium 40 MG/0.4 ML SYRINGE SC SCH (08:41)
[2018-04-10] MEDS: Nystatin Powder 15 GM BOT TOP SCH ×3 (10:00→20:10)
[2018-04-10] MEDS: Spironolactone 25 MG TAB PO SCH (10:01)
--- NOTE | 2018-04-10 10:30 | PDOC.EVN ---
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
--- NOTE | 2018-04-10 12:30 | CON ---
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 She has been treated for open wound on her left leg and failed outpatient treatment. Duration of her wound is unknown. The patient was admitted with bilateral lower extremity cellulitis and I was asked to see her in regards to her possible peripheral circulation. PHYSICAL EXAMINATION: GENERAL: Alert lady lying on her back with a trach in place and oxygen therapy being administered. She is resting comfortably. LUNGS: Bilateral rhonchi. CARDIAC: Resting tachycardia. ABDOMEN: PEG tube in place. Obese. EXTREMITIES: Left lower extremity has an open granulating wound at least 4-6 inches in diameter. Th ere is some yellow exudate, which was removed. She has a soft fluctuant area over the anterior tibia l area slightly more proximally with a small pinhole draining a small amount of bloody fluid. Right leg has cellulitis with perhaps soft fluctuant area, but this is difficult to be sure and it is nonte nder. She has palpable dorsalis pedis pulses bilaterally with triphasic Doppler signals in both dors nata pedis vessels. Posterior tibial also have good Doppler signals. She has no peripheral edema. PLAN: The patient had some lidocaine infiltrated into the skin around the pin hole over the fluctuan t area in her left leg and this was incised and foul smelling thick and bloody fluid was removed and the wound was packed and cultures were obtained. The patient will need long-term wound care, antibio tics based on culture results. The right lower extremity may need incision and drainage at some poin t, but at this time, I have not recommended aspiration since she has surrounding cellulitis and this could in fact a sterile hematoma. Prognosis long-term is poor.
[2018-04-11] MEDS: Vancomycin HCl 1 GM in Premix Bag 1 BAG IVPB SCH (05:15)
[2018-04-11] MEDS: Levothyroxine Sodium 112 MCG TAB PO SCH (05:15)
--- NOTE | 2018-04-11 06:14 | PDOC.FM ---
- Subjective Subjective: Patient having minimal amount of pain on left leg wound this morning. Denied diarrhea or nausea or vomiting. She reported tearfully the fear that we are going to have amputate her leg. - Objective Vital Signs & Weight: Vital Signs (12 hours) Temp Pulse Resp BP Pulse Ox 04/11/18 05:13 97.2 F L 100 16 112/68 99 04/11/18 05:11 97 04/10/18 22:13 99.5 F 84 22 H 97 04/10/18 20:37 99.5 F 84 22 H 98/63 97 Weight Admit Weight 147.418 kg Weight 147.418 kg I&O: 04/09/18 04/10/18 04/11/18 06:59 06:59 06:59 Intake Total 1700 2050 Output Total 700 400 Balance 1000 1650 Result Diagrams: 04/10/18 06:43 04/10/18 06:43 <Belen Hopper - Last Filed: 04/11/18 11:55> - Objective Vital Signs & Weight: Vital Signs (12 hours) Temp Pulse Resp BP Pulse Ox 04/11/18 08:00 98.1 F 79 16 99 04/11/18 07:33 98.1 F 79 16 129/74 99 04/11/18 06:51 99 04/11/18 05:13 97.2 F L 100 16 112/68 99 04/11/18 05:11 97 Weight Admit Weight 147.418 kg Weight 147.418 kg I&O: 04/10/18 04/11/18 04/12/18 06:59 06:59 06:59 Intake Total 1700 0 Output Total 700 400 Balance 1000 1650 Result Diagrams: 04/10/18 06:43 04/10/18 06:43 <Darius Gill - Last Filed: 04/11/18 13:39> Phys Exam - Physical Examination Constitutional: NAD HEENT: PERRLA, moist MMs Neck: no nodes, supple Respiratory: no wheezing, clear to auscultation bilateral Cardiovascular: RRR, no significant murmur Gastrointestinal: soft, non-tender obese Musculoskeletal: edema present (1+ pitting edema bilaterally) Neurological: moves all 4 limbs Psychiatric: normal affect, A&O x 3 Deviation from normal: tearful Deviation from normal: LL wound has drainage, TTP, erythematous, packed. Rt leg wound min drainage <Belen Hopper - Last Filed: 04/11/18 11:55> Dx/Plan (1) Bilateral cellulitis of lower leg Code(s): L03.116 - CELLULITIS OF LEFT LOWER LIMB; L03.115 - CELLULITIS OF RIGHT LOWER LIMB Status: Acute (2) Cellulitis of right lower extremity Code(s): L03.115 - CELLULITIS OF RIGHT LOWER LIMB Status: Acute (3) Chronic a-fib Code(s): I48.2 - CHRONIC ATRIAL FIBRILLATION Status: Chronic (4) Constipation Code(s): K59.00 - CONSTIPATION, UNSPECIFIED Status: Chronic (5) Diabetic neuropathy Code(s): E11.40 - TYPE 2 DIABETES MELLITUS WITH DIABETIC NEUROPATHY, UNSP Status: Chronic (6) Esophageal varices in cirrhosis Code(s): K74.60 - UNSPECIFIED CIRRHOSIS OF LIVER; I85.10 - SECONDARY ESOPHAGEAL VARICES WITHOUT BLEEDING Status: Chronic (7) Fatty liver Code(s): K76.0 - FATTY (CHANGE OF) LIVER, NOT ELSEWHERE CLASSIFIED Status: Chronic (8) GERD (gastroesophageal reflux disease) Code(s): K21.9 - GASTRO-ESOPHAGEAL REFLUX DISEASE WITHOUT ESOPHAGITIS Status: Chronic (9) Metabolic alkalosis with respiratory acidosis Code(s): E87.4 - MIXED DISORDER OF ACID-BASE BALANCE Status: Acute (10) Portal hypertension Code(s): K76.6 - PORTAL HYPERTENSION Status: Chronic (11) Tobacco abuse Code(s): Z72.0 - TOBACCO USE Status: Chronic (12) CKD (chronic kidney disease), stage II Code(s): N18.2 - CHRONIC KIDNEY DISEASE, STAGE 2 (MILD) Status: Chronic (13) Chronic anemia Code(s): D64.9 - ANEMIA, UNSPECIFIED Status: Chronic (14) Chronic respiratory failure Code(s): J96.10 - CHRONIC RESPIRATORY FAILURE, UNSP W HYPOXIA OR HYPERCAPNIA Status: Chronic (15) Cirrhosis Code(s): K74.60 - UNSPECIFIED CIRRHOSIS OF LIVER Status: Chronic Qualifiers: Hepatic cirrhosis type: unspecified hepatic cirrhosis Ascites presence: without ascites Qualified Code(s): K74.60 - Unspecified cirrhosis of liver (16) Depression Code(s): F32.9 - MAJOR DEPRESSIVE DISORDER, SINGLE EPISODE, UNSPECIFIED Status : Chronic Qualifiers: Depression Type: major depressive disorder Major depression recurrence: recurrent Active/Remission status: in full remission Qualified Code(s): F33.42 - Major depressive disorder, recurrent, in full remission (17) Diabetes Code(s): E11.9 - TYPE 2 DIABETES MELLITUS WITHOUT COMPLICATIONS Status: Chronic (18) Diastolic CHF Code(s): I50.30 - UNSPECIFIED DIASTOLIC (CONGESTIVE) HEART FAILURE Status: Chronic (19) End stage COPD Code(s): J44.9 - CHRONIC OBSTRUCTIVE PULMONARY DISEASE, UNSPECIFIED Status: Chronic (20) HTN (hypertension) Code(s): I10 - ESSENTIAL (PRIMARY) HYPERTENSION Status: Chronic (21) History of CVA (cerebrovascular accident) Code(s): Z86.73 - PRSNL HX OF TIA (TIA), AND CEREB INFRC W/O RESID DEFICITS Status: Chronic (22) Hyperlipemia Code(s): E78.5 - HYPERLIPIDEMIA, UNSPECIFIED Status: Chronic Qualifiers: Hyperlipidemia type: mixed hyperlipidemia Qualified Code(s): E78.2 - Mixed hyperlipidemia (23) KATE (obstructive sleep apnea) Code(s): G47.33 - OBSTRUCTIVE SLEEP APNEA (ADULT) (PEDIATRIC) Status: Chronic (24) Obesity, morbid Code(s): E66.01 - MORBID (SEVERE) OBESITY DUE TO EXCESS CALORIES Status: Chronic (25) Panniculitis Code(s): M79.3 - PANNICULITIS, UNSPECIFIED Status: Chronic (26) Paroxysmal a-fib Code(s): I48.0 - PAROXYSMAL ATRIAL FIBRILLATION Status: Chronic (27) Stasis dermatitis of both legs Code(s): I87.2 - VENOUS INSUFFICIENCY (CHRONIC) (PERIPHERAL) Status: Chronic (28) Urinary incontinence Code(s): R32 - UNSPECIFIED URINARY INCONTINENCE Status: Chronic - Plan Plan: A/P: 63 yo F with numerous comorbidities here with BL LE cellulitis that has failed outpatient therapy # bilateral Cellulitus w/ large wound on L, likely 2/2 PVD - bcx, wound cx pending -prelim left calf: g- rods, serratia marcescens -prelim leg drainage: pseudomonas aeruginosa, proteus penners -All sensitive to IV cefepime, discontinue vanc today 04/11/18 - continue cefepime, pcn allergic; Vanc 04/08/18 - 04/11/18 - not meeting criteria for sepsis at this time - X-rays of L ankle and tibia show only chronic changes at this time - CV surgery consulted - patient understand leg may not be salvageable and agrees to amputation if IV abx fail # Social Discord - did not strip picker meds for 2 weeks after last hospitalization - 17 yo son is primary caregiver, no elderly caregiver in the home from 8-4 - APS involved, states patient needs NH placement - patient agrees to NH placement but has flip-flopped in the past, wants to be in [facility] but may need to go to [facility] as she owes money at Dr. Z, [employer] [facility] manages most NHs in [facility] - case management consulted # HTN - home meds # Hyperglycemia - A1C 4.9 # Iron def anemia - continue iron PO - outpatient iron studies # Code status - full - multiple discussion regarding goals of care. As of long conversation in office 04/08/18 patient wants "to live as long as possible no matter the pain or suffering." - palliative care consulted for symptom management # hypothyroid - home meds # chronic pain - gabapentin - states pain well-controlled at this time # pAfib - not on chronic anticoagulation 2/2 severe bleeding complication on earlier hospitalization - ASA Code: full Fluids: PO Diet: heart healthy Dispo: pending CV surg recs, residential placement <Belen Hopper - Last Filed: 04/11/18 11:55> Attending Addendum - Attending Addendum Date/Time: 04/11/18 1262 I personally evaluated the patient and discussed the management with Dr. Hopper. I agree with the History, Examination, Assessment and Plan documented above with any addition or exceptions noted below. Patient here with history of chronic cellulitis and now has non healing wound on her leg with cultures growing a host of organisms. Fortunately, all isolates currently are sensitive to Cefepime and so will decrease her abx regimen to that alone. Continue wound care. CV surg has evaluated and awaiting further input. Continue other medications for her chronic medical conditions. No evidence of systemic infection. <Darius Gill - Last Filed: 04/11/18 13:39>
[2018-04-11] MEDS: Enoxaparin Sodium 40 MG/0.4 ML SYRINGE SC SCH (09:11)
[2018-04-11] MEDS: Aspirin 81 mg Enteric Coated Tablet PO SCH (09:11)
[2018-04-11] MEDS: Cefepime 2 GM in Sodium Chloride 0.9% 100 ML IVPB SCH ×2 (09:11→20:08)
[2018-04-11] MEDS: buPROPion HCl 100 MG TAB PO SCH ×2 (09:11→20:08)
[2018-04-11] MEDS: Furosemide 40 MG TAB PO SCH (09:12)
[2018-04-11] MEDS: Nystatin Powder 15 GM BOT TOP SCH ×3 (09:12→20:08)
[2018-04-11] MEDS: Metolazone 5 MG TAB PO SCH (09:12)
[2018-04-11] MEDS: Gabapentin 300 MG CAP PO SCH ×2 (09:12→20:08)
[2018-04-11] MEDS: Ferrous Sulfate 325 MG TAB PO SCH ×2 (09:12→20:07)
[2018-04-11] MEDS: Spironolactone 25 MG TAB PO SCH (09:13)
[2018-04-11] MEDS: Potassium Chloride 20 MEQ TAB PO SCH (09:13)
[2018-04-11] MEDS: traMADol HCl 50 MG TAB PO PRN (16:16)
[2018-04-12 04:18] LABS: #Eosinphils 0.6 thou/uL (0.0-0.7); #Lymphocytes 1.9 thou/uL (1.20-3.40); #Monocytes 0.8 thou/uL (0.11-0.59); #Neutrophils 2.8 thou/uL (1.40-6.50); %Basophils 0.7 % (0.0-1.0); %Eosinophils 9.5 % (0.0-10.0); %Lymphocytes 31.9 % (21.0-51.0); %Monocytes 12.7 % (0.0-10.0); %Neutrophils 45.2 % (42.0-75.0); Mean Corpuscular HGB CONC 33.3 g/dL (32.0-36.0); Mean Corpuscular Hemoglobin 36.1 pg (27.0-31.0); Mean Platelet Volume 7.6 fL (7.4-10.4); Platelet Count 149 thou/uL (130-400); RBC Distribution Width 16.6 % (11.5-14.5); Red Blood Cell (RBC) Count 2.77 mill/uL (4.20-5.40); White Blood Cell (WBC) Count 6.1 thou/uL (4.8-10.8)
[2018-04-12 04:41] LABS: ALT (SGPT) 11 U/L (8-55); AST (SGOT) 25 U/L (5-34); Albumin 2.2 g/dL (3.4-4.8); Alkaline Phosphatase 159 U/L (40-150); Anion Gap 10 mmol/L (10-20); BUN (Urea Nitrogen) 17 mg/dL (9.8-20.1); Bilirubin, Total 1.1 mg/dL (0.2-1.2); Calc. Creatinine Clearance 158 mL/min (70-130); Calcium 8.3 mg/dL (7.8-10.44); Carbon Dioxide 36 mmol/L (23-31); Chloride 92 mmol/L (98-107); Estimated GFR-MDRD 66; Globulin 5.7 g/dL (2.4-3.5); Glucose 91 mg/dL (80-115); Potassium 3.5 mmol/L (3.5-5.1); Protein, Total 7.9 g/dL (6.0-8.3); Sodium 134 mmol/L (136-145)
[2018-04-12] MEDS: Levothyroxine Sodium 112 MCG TAB PO SCH (05:28)
[2018-04-12] MEDS: Enoxaparin Sodium 40 MG/0.4 ML SYRINGE SC SCH (08:45)
[2018-04-12] MEDS: Ferrous Sulfate 325 MG TAB PO SCH (08:45)
[2018-04-12] MEDS: Aspirin 81 mg Enteric Coated Tablet PO SCH (08:45)
[2018-04-12] MEDS: Spironolactone 25 MG TAB PO SCH (08:45)
[2018-04-12] MEDS: Nystatin Powder 15 GM BOT TOP SCH ×3 (08:45→20:34)
[2018-04-12] MEDS: Gabapentin 300 MG CAP PO SCH ×2 (08:45→20:34)
[2018-04-12] MEDS: buPROPion HCl 100 MG TAB PO SCH ×2 (08:45→20:34)
[2018-04-12] MEDS: Cefepime 2 GM in Sodium Chloride 0.9% 100 ML IVPB SCH ×2 (08:45→20:33)
[2018-04-12] MEDS: Furosemide 40 MG TAB PO SCH (08:45)
[2018-04-12] MEDS ORDERED: Pantoprazole 40 MG GRANULES PACKET PER TUBE SCH (13:00)
--- NOTE | 2018-04-12 13:21 | PRG ---
DATE OF SERVICE: 04/12/2018 For full progress note details, please see the written progress note as documented by Dr. Belen goldman the patient's medical chart. In brief, this patient with a host of medical problems and chronic lower extremity cellulitis is here with worsening left lower extremity wound infection. The patient has been here over the last severa l days, has been on cefepime as well as vancomycin for antibiotic therapy. As of yesterday cultures were growing Pseudomonas as well as serratia and Proteus and therefore, vancomycin was terminated at that time. The patient continues on clindamycin for therapy. This morning she does report some pain in that left leg and there may be some mild increase in fluctuance at the site. Due to the patient' s chronic medical noncompliance as well as lower extremity infections, General Surgery has been consu lted to see the patient CV Surgery was originally consulted on the case who recommended antibiotic th erapy. The patient's vitals are overall stable at this time. She is not afebrile. Her other chroni c medical conditions are stable and well controlled at this time. We will continue the patient on cefepime and await surgery consultation to see if she needs any furth er incision or debridement of the wound. Anticipate that she will remain here in the hospital over t he next several days. Of note, it has been discussed by both Surgery Team as well as primary team gisselle d Adult Protective Services that the patient should be discharged to a half-way or some other fac ility after she is ready to leave the hospital as she should not return home for both the safety of h erself as well as wellbeing of her family.
[2018-04-12] MEDS: Potassium Chloride 20 MEQ TAB PO SCH (19:07)
[2018-04-13] MEDS: Levothyroxine Sodium 112 MCG TAB PO SCH (05:08)
--- NOTE | 2018-04-13 06:23 | PDOC.FM ---
- Subjective Subjective: Patient is feeling well this morning, says she does not have pain in the left leg this morning. - Objective Vital Signs & Weight: Vital Signs (12 hours) Temp Pulse Resp BP Pulse Ox 04/12/18 20:00 98.9 F 73 18 120/74 96 Weight Admit Weight 147.418 kg Weight 147.418 kg I&O: 04/11/18 04/12/18 04/13/18 06:59 06:59 06:59 Intake Total 2050 2120 1060 Output Total 400 2560 5200 Balance 1650 -440 -4140 Result Diagrams: 04/12/18 03:30 04/12/18 03:31 <Belen Hopper - Last Filed: 04/13/18 08:53> - Objective Vital Signs & Weight: Vital Signs (12 hours) Temp Pulse Resp BP Pulse Ox 04/13/18 07:34 98.9 F 78 18 96/56 L 100 04/13/18 07:26 96 Weight Admit Weight 147.418 kg Weight 147.418 kg I&O: 04/12/18 04/13/18 04/14/18 06:59 06:59 06:59 Intake Total 2120 1060 Output Total 2560 5200 Balance -440 -4140 Result Diagrams: 04/12/18 03:30 04/12/18 03:31 <Darius Gill - Last Filed: 04/13/18 11:08> Phys Exam - Physical Examination Constitutional: NAD Respiratory: no wheezing, no rales, no rhonchi Cardiovascular: RRR, no significant murmur, no rub Pulses 2+ in upper and lower extremities Gastrointestinal: soft, positive bowel sounds Psychiatric: normal affect Skin: normal turgor, cap refill <2 seconds Deviation from normal: Left wound has vac placed, erythema dimished. Rt leg wound has pocket of fl -: uid, no erythema, non tender. <Belen Hopper - Last Filed: 04/13/18 08:53> Dx/Plan (1) Bilateral cellulitis of lower leg Code(s): L03.116 - CELLULITIS OF LEFT LOWER LIMB; L03.115 - CELLULITIS OF RIGHT LOWER LIMB Status: Acute (2) Cellulitis of right lower extremity Code(s): L03.115 - CELLULITIS OF RIGHT LOWER LIMB Status: Acute (3) Chronic a-fib Code(s): I48.2 - CHRONIC ATRIAL FIBRILLATION Status: Chronic (4) Constipation Code(s): K59.00 - CONSTIPATION, UNSPECIFIED Status: Chronic (5) Diabetic neuropathy Code(s): E11.40 - TYPE 2 DIABETES MELLITUS WITH DIABETIC NEUROPATHY, UNSP Status: Chronic (6) Esophageal varices in cirrhosis Code(s): K74.60 - UNSPECIFIED CIRRHOSIS OF LIVER; I85.10 - SECONDARY ESOPHAGEAL VARICES WITHOUT BLEEDING Status: Chronic (7) Fatty liver Code(s): K76.0 - FATTY (CHANGE OF) LIVER, NOT ELSEWHERE CLASSIFIED Status: Chronic (8) GERD (gastroesophageal reflux disease) Code(s): K21.9 - GASTRO-ESOPHAGEAL REFLUX DISEASE WITHOUT ESOPHAGITIS Status: Chronic (9) Metabolic alkalosis with respiratory acidosis Code(s): E87.4 - MIXED DISORDER OF ACID-BASE BALANCE Status: Acute (10) Portal hypertension Code(s): K76.6 - PORTAL HYPERTENSION Status: Chronic (11) Tobacco abuse Code(s): Z72.0 - TOBACCO USE Status: Chronic (12) CKD (chronic kidney disease), stage II Code(s): N18.2 - CHRONIC KIDNEY DISEASE, STAGE 2 (MILD) Status: Chronic (13) Chronic anemia Code(s): D64.9 - ANEMIA, UNSPECIFIED Status: Chronic (14) Chronic respiratory failure Code(s): J96.10 - CHRONIC RESPIRATORY FAILURE, UNSP W HYPOXIA OR HYPERCAPNIA Status: Chronic (15) Cirrhosis Code(s): K74.60 - UNSPECIFIED CIRRHOSIS OF LIVER Status: Chronic Qualifiers: Hepatic cirrhosis type: unspecified hepatic cirrhosis Ascites presence: without ascites Qualified Code(s): K74.60 - Unspecified cirrhosis of liver (16) Depression Code(s): F32.9 - MAJOR DEPRESSIVE DISORDER, SINGLE EPISODE, UNSPECIFIED Status : Chronic Qualifiers: Depression Type: major depressive disorder Major depression recurrence: recurrent Active/Remission status: in full remission Qualified Code(s): F33.42 - Major depressive disorder, recurrent, in full remission (17) Diabetes Code(s): E11.9 - TYPE 2 DIABETES MELLITUS WITHOUT COMPLICATIONS Status: Chronic (18) Diastolic CHF Code(s): I50.30 - UNSPECIFIED DIASTOLIC (CONGESTIVE) HEART FAILURE Status: Chronic (19) End stage COPD Code(s): J44.9 - CHRONIC OBSTRUCTIVE PULMONARY DISEASE, UNSPECIFIED Status: Chronic (20) HTN (hypertension) Code(s): I10 - ESSENTIAL (PRIMARY) HYPERTENSION Status: Chronic (21) History of CVA (cerebrovascular accident) Code(s): Z86.73 - PRSNL HX OF TIA (TIA), AND CEREB INFRC W/O RESID DEFICITS Status: Chronic (22) Hyperlipemia Code(s): E78.5 - HYPERLIPIDEMIA, UNSPECIFIED Status: Chronic Qualifiers: Hyperlipidemia type: mixed hyperlipidemia Qualified Code(s): E78.2 - Mixed hyperlipidemia (23) KATE (obstructive sleep apnea) Code(s): G47.33 - OBSTRUCTIVE SLEEP APNEA (ADULT) (PEDIATRIC) Status: Chronic (24) Obesity, morbid Code(s): E66.01 - MORBID (SEVERE) OBESITY DUE TO EXCESS CALORIES Status: Chronic (25) Panniculitis Code(s): M79.3 - PANNICULITIS, UNSPECIFIED Status: Chronic (26) Paroxysmal a-fib Code(s): I48.0 - PAROXYSMAL ATRIAL FIBRILLATION Status: Chronic (27) Stasis dermatitis of both legs Code(s): I87.2 - VENOUS INSUFFICIENCY (CHRONIC) (PERIPHERAL) Status: Chronic (28) Urinary incontinence Code(s): R32 - UNSPECIFIED URINARY INCONTINENCE Status: Chronic - Plan Plan: A/P: 63 yo F with numerous comorbidities here with BL LE cellulitis that has failed outpatient therapy (pt did not parts picker outpt medication in timely manner) # bilateral Cellulitus w/ large wound on L, likely 2/2 PVD - L wound s/p I&D, wound cleaned and packed. Wound care consulted, wound vac placed yesterday on L leg. Patient is unable to care for herself at this time. - CV surgery consulted, Dr Galeana -Recommended not draining Rt wound with patient's cellulitis on L, as it may be sterile fluid collection - Cultures -prelim left calf: g- rods, serratia marcescens -prelim leg drainage: pseudomonas aeruginosa, proteus penners -All sensitive to IV cefepime, discontinued vanc 04/11/18 - pcn allergic - switch from IV cefepime today to oral antibiotics (through peg tube) for a total of 14 days treatment for cellulitis. - X-rays of L ankle and tibia show only chronic changes at this time # Social Discord - did not parts picker meds for 2 weeks after last hospitalization - 17 yo son is primary caregiver, no care worker in the home from 8-4 - APS involved, case management consulted; patient wanted to go to [facility] ( where she owes money currently), but has currently been accepted at [facility]. - patient agrees to NH placement but has flip-flopped in the past, [facility] company of [employer] manages most NHs in [facility] # HTN - home meds # Hyperglycemia - A1C 4.9 # Iron def anemia - continue iron PO - outpatient iron studies # Code status - full - multiple discussion regarding goals of care. As of long conversation in office 04/08/18 patient wants "to live as long as possible no matter the pain or suffering." - palliative care consulted for symptom management # hypothyroid - home meds # chronic pain - gabapentin - states pain well-controlled at this time # pAfib - not on chronic anticoagulation 2/2 severe bleeding complication on earlier hospitalization - ASA Code: full Fluids: PO Diet: heart healthy Dispo: accepted to [facility], plan to discharge today <Belen Hopper - Last Filed: 04/13/18 08:53> Attending Addendum - Attending Addendum Date/Time: 04/13/18 1107 I personally evaluated the patient and discussed the management with Dr. Hopper. I agree with the History, Examination, Assessment and Plan documented above with any addition or exceptions noted below. Patient doing well this morning and denies pain. She has been on IV abx for her lower extremity cellulitis for 5 days, plan to transition to oral Cipro today. Her lab counts are stable as are her other chronic medical conditions. She has been accepted to [facility] based on notes and we will work to discharge there today. <Darius Gill - Last Filed: 04/13/18 11:08>
[2018-04-13] MEDS: Cefepime 2 GM in Sodium Chloride 0.9% 100 ML IVPB SCH (08:16)
[2018-04-13] MEDS: Spironolactone 25 MG TAB PO SCH (08:17)
[2018-04-13] MEDS: Furosemide 40 MG TAB PO SCH (08:18)
[2018-04-13] MEDS: Enoxaparin Sodium 40 MG/0.4 ML SYRINGE SC SCH (08:19)
[2018-04-13] MEDS: Nystatin Powder 15 GM BOT TOP SCH ×2 (08:19→14:38)
[2018-04-13] MEDS: Aspirin 81 mg Enteric Coated Tablet PO SCH (08:19)
[2018-04-13] MEDS: Metolazone 5 MG TAB PO SCH (08:20)
[2018-04-13] MEDS: Gabapentin 300 MG CAP PO SCH (08:20)
[2018-04-13] MEDS: buPROPion HCl 100 MG TAB PO SCH (08:21)
[2018-04-13] MEDS ORDERED: Pantoprazole 40 MG GRANULES PACKET PER TUBE SCH (09:00)
[2018-04-13 16:25] VITALS: BP 96/62; TEMP 98.3
--- NOTE | 2018-04-14 12:28 | DIS-2 ---
DATE OF ADMISSION: 04/08/2018 DATE OF DISCHARGE: 04/13/2018 ADMITTING ATTENDING: Dr. Maribel Siddiqui DISCHARGE ATTENDING: Dr. Darius Gill CONSULTS: 1. Dr. Galeana, Cardiovascular Surgery. PROCEDURES: 1. Chest x-ray on 04/08/2018. Impression: Chronic type findings are stable. No active cardiopulmonary abnormalities were demonstrated. 2. Ankle x-ray on 04/08/2018. Impression: Chronic type findings are stable. No reliable radiographic evidence of aggressive osseous destruction. 3. Tib/fib x-ray on 04/08/2018. Impression: Chronic type findings are stable. PRIMARY DIAGNOSES: 1. Refractory cellulitis and abscess of left lower extremity 2. Abscess of right lower extremity. SECONDARY DIAGNOSES: 1. Chronic atrial fibrillation. 2. Constipation. 3. Diabetic neuropathy. 4. Esophageal varices and cirrhosis. 5. Fatty liver. 6. Gastroesophageal reflux disease. 7. Metabolic alkalosis with respiratory acidosis. 8. Portal hypertension. 9. Tobacco abuse. 10. Chronic kidney disease stage 2. 11. Chronic anemia. 12. Chronic respiratory failure. 13. Depression. 14. Diabetes. 15. Diastolic congestive heart failure. 16. End-stage chronic obstructive pulmonary disease. 17. Hypertension. 18. History of cerebrovascular accident. 19. Hyperlipidemia. 20. Obstructive sleep apnea. 21. Morbid obesity. 22. Panniculitis. 23. Stasis dermatitis of both legs. 24. Urinary incontinence. 25. Hypothyroidism. 26. Chronic pain. DISCHARGE MEDICATIONS: 1. Acetaminophen 325 mg p.o. q.4h. p.r.n. for headache, fever, or pain. 2. Aspirin 81 mg p.o. q.a.m. 3. Ferrous sulfate 325 mg p.o. b.i.d. 4. Furosemide 80 mg p.o. daily. 5. Gabapentin 300 mg p.o. b.i.d. 6. Levothyroxine 112 mcg tablet 1 tablet p.o. q.a.m. 7. Metolazone 5 mg p.o. on Wednesday, Wednesday, and Wednesday. 8. Nystatin 1 gram topical t.i.d. 9. Pantoprazole 40 mg tab p.o. daily. 10. Potassium chloride 20 mEq p.o. daily. 11. Spironolactone 12.5 mg p.o. q.a.m. 12. Tramadol 300 mg p.o. q.6 hours p.r.n. for pain. DISCONTINUED MEDICATIONS: 1. Vancomycin 04/08/2018 to 04/11/2018. 2. Cefepime 04/08/2018 to 04/13/2018. HISTORY OF PRESENT ILLNESS AND HOSPITAL COURSE: Ms. Springer is a 63-year-old female with a past medical history of type 2 diabetes mellitus, hypertension, anxiety and depression, with a chronic trach secondary to obesity hypoventilation, HFpEF, cirrhosis, and a recent hospitalization for left lower extremity cellulitis here with complaint of left lower extremity pain. She was discharged on 03/19/2018 on clindamycin and Bactrim. The patient reported she did not picker operator meds from the pharmacy until 04/01/2018. She has had increasing pain, drainage and a new foul odor from the left lower extremity wound. She also endorsed a new open area on the right lower extremity proximal to the lateral malleolus. She denied fevers, chills or diarrhea. The x-ray showed no signs of osteomyelitis. She was started on vancomycin and cefepime due to her allergy to penicillin. Blood and wound cultures were taken. They were found to have gram negative snehal, Serratia marcescens from her left calf, culture from her leg drainage grew Pseudomonas aeruginosa and Proteus, all these are sensitive to IV cefepime. Her vancomycin was discontinued on 2017. She was switched to oral antibiotics which can be given through her PEG tube, on 04/13/2018, she was given Cipro 500 b.i.d. for 8 more days after her discharge. For her social issues, her 17-year-old son is her primary caregiver and she does not have a caregiver in the home from 8 to 4, APS was involved, and case management was consulted. The patient wanted to go to [facility] for care which she currently owed them money and so she was only accepted to [facility]. The patient agreed to a residential placement even though she has refused being placed in the residential in the past. Her iron deficiency anemia, she is going to be continued on iron p.o. and can get outpatient iron studies with her PCP as decided as necessary by her PCP. Palliative care was consulted for symptom management. Multiple discussions regarding her goals of care took place. A long conversation on 04/08/2018 patient stated she wanted to live as long as possible no matter the pain or suffering. For her paroxysmal atrial fibrillation, she is not on chronic anticoagulation secondary to severe bleeding complication on an earlier hospitalization. She is on aspirin. DISPOSITION: Stable. DISCHARGE INSTRUCTIONS: 1. Location: [facility]. 2. Diet: Heart healthy and consistent carbohydrates. 3. Activity: As tolerated. 4. Followup: Follow with Dr. Galeana, follow up with [facility] within 7 days, receive wound care at the residential. JLUIS
== END 2018-04-13 16:20 | DRG 580 ==
LOC: T4-B 16:51
PROVIDERS: ADMIT Family Medicine; ATTEND Family Medicine
PROC: 0J9P0ZZ Drainage of Left Lower Leg Subcutaneous Tissue and Fascia, Open Approach (ICD-10-PCS; principal; 2018-04-10)
DX: S81.802A Unspecified open wound, left lower leg, initial encounter (principal); L03.116 Cellulitis of left lower limb; J96.10 Chronic respiratory failure, unspecified whether with hypoxia or hypercapnia; I50.32 Chronic diastolic (congestive) heart failure; E66.2 Morbid (severe) obesity with alveolar hypoventilation; Z68.43 Body mass index [BMI] 50.0-59.9, adult; I85.10 Secondary esophageal varices without bleeding; E87.4 Mixed disorder of acid-base balance; K76.6 Portal hypertension; I13.0 Hypertensive heart and chronic kidney disease with heart failure and stage 1 through stage 4 chronic kidney disease, or unspecified chronic kidney disease; N17.9 Acute kidney failure, unspecified; L02.416 Cutaneous abscess of left lower limb; L02.415 Cutaneous abscess of right lower limb; Z93.0 Tracheostomy status; Z72.0 Tobacco use; Z99.81 Dependence on supplemental oxygen; E78.5 Hyperlipidemia, unspecified; I11.0 Hypertensive heart disease with heart failure; E03.9 Hypothyroidism, unspecified; Z71.3 Dietary counseling and surveillance; I48.2 Chronic atrial fibrillation; K74.60 Unspecified cirrhosis of liver; K76.0 Fatty (change of) liver, not elsewhere classified; E11.22 Type 2 diabetes mellitus with diabetic chronic kidney disease; N18.2 Chronic kidney disease, stage 2 (mild); E11.40 Type 2 diabetes mellitus with diabetic neuropathy, unspecified; D64.9 Anemia, unspecified; F33.42 Major depressive disorder, recurrent, in full remission; J44.9 Chronic obstructive pulmonary disease, unspecified; Z86.73 Personal history of transient ischemic attack (TIA), and cerebral infarction without residual deficits; K21.9 Gastro-esophageal reflux disease without esophagitis; M79.3 Panniculitis, unspecified; I87.2 Venous insufficiency (chronic) (peripheral); R32 Unspecified urinary incontinence; I48.0 Paroxysmal atrial fibrillation; K59.00 Constipation, unspecified; B96.5 Pseudomonas (aeruginosa) (mallei) (pseudomallei) as the cause of diseases classified elsewhere; Z73.5 Social role conflict, not elsewhere classified; E11.65 Type 2 diabetes mellitus with hyperglycemia; D50.9 Iron deficiency anemia, unspecified; G89.29 Other chronic pain; Z93.1 Gastrostomy status; Z88.0 Allergy status to penicillin; Z79.82 Long term (current) use of aspirin
CPT/HCPCS: 36415; 36416; 71045; 80053; 80202; 81001; 83036; 83605; 85025; 87040; 87070; 87077; 87186; 87205; 94640; 94760; A4216; G8978-GP-CM; G8979-GP-CJ; G8987-GO-CM; G8988-GO-CM; G8989-GO-CM; J0692; J1650; J2001; J2270; J3370; J7050

== ENCOUNTER 2018-07-02 16:46 | Emergency (ER) | payer OTHER ==
--- NOTE | 2018-07-02 17:45 | RAD ---
SINGLE VIEW OF THE CHEST: 07/02/18 COMPARISON: 04/08/18 HISTORY: Patient pulled out tracheostomy and nursing was unable to put it back in. Dyspnea. FINDINGS: Single view of the chest shows an enlarged but stable cardiomediastinal silhouette. A tracheostomy is seen in good position with its tip in the midline overlying the trachea. There is no evidence of con solidation, mass, or pleural effusion. IMPRESSION: Appropriate position of tracheostomy. POS: HYACINTH
== END 2018-07-02 20:26 ==
LOC: ERS 16:46
DX: Z43.0 Encounter for attention to tracheostomy (principal); E78.5 Hyperlipidemia, unspecified; D64.9 Anemia, unspecified; E10.9 Type 1 diabetes mellitus without complications; E03.9 Hypothyroidism, unspecified; J44.9 Chronic obstructive pulmonary disease, unspecified; F32.9 Major depressive disorder, single episode, unspecified; Z87.891 Personal history of nicotine dependence; Z79.899 Other long term (current) drug therapy; Z79.82 Long term (current) use of aspirin
CPT/HCPCS: 71045

== ENCOUNTER 2018-08-08 07:52 | Observation (INO) | payer OTHER ==
[2018-08-08 09:33] LABS: Hemoglobin 11.5 g/dL (12.0-16.0); Mean Corpuscular HGB CONC 33.9 g/dL (32.0-36.0); Mean Corpuscular Hemoglobin 33.2 pg (27.0-31.0); Red Blood Cell (RBC) Count 3.45 mill/uL (4.20-5.40); White Blood Cell (WBC) Count 5.5 thou/uL (4.8-10.8)
[2018-08-08 09:44] LABS: ALT (SGPT) 12 U/L (8-55); AST (SGOT) 33 U/L (5-34); Albumin 2.6 g/dL (3.4-4.8); Alkaline Phosphatase 205 U/L (40-150); Anion Gap 12 mmol/L (10-20); BUN (Urea Nitrogen) 15 mg/dL (9.8-20.1); Bilirubin, Total 1.4 mg/dL (0.2-1.2); Calc. Creatinine Clearance 0 mL/min (70-130); Calcium 8.5 mg/dL (7.8-10.44); Carbon Dioxide 26 mmol/L (23-31); Chloride 103 mmol/L (98-107); Estimated GFR-MDRD 48; Globulin 5.1 g/dL (2.4-3.5); Glucose 87 mg/dL (80-115); Lipase 36 U/L (8-78); Potassium 3.6 mmol/L (3.5-5.1); Protein, Total 7.7 g/dL (6.0-8.3); Sodium 137 mmol/L (136-145)
[2018-08-08 10:05] LABS: Band 7 % (5-11); Eosinophils 6 % (0-10); Lymphocytes 49 % (21-51); MDiff Complete? YES; Mean Platelet Volume 9.1 fL (7.4-10.4); Monocytes 11 % (0-10); Neutrophil 27 % (42-75); Platelet Count 104 thou/uL (130-400); Platelet Morphology Comment Appears Adequate; Polychromasia SLIGHT = 2-3 cells (100X) (0-2/hpf)
[2018-08-08 10:08] LABS: CKMB 1.1 ng/mL (0-6.6)
--- NOTE | 2018-08-08 11:50 | CON ---
DATE OF CONSULTATION: HISTORY OF PRESENT ILLNESS: Love Springer is a 63-year-old morbidly obese female speaks zero Danish, presented to the ER with malfunctioning trach. Apparently, she has a permanent tracheostomy, which was dislodged. She speaks no Danish. ER physician called me on emergency basis to try and replace the trach. Upon arrival to the ER, there was no visible orifice. She has a pinpoint trach if any at all. This has been replaced many times. Therefore, it was not possible to place a trach without going to the OR. ER physician notified to call ENT, who in the past has placed a trach or General Surgery will require reexploration, dilatation, and #8 trach to be placed in. PAST MEDICAL HISTORY: As per the extensive records includes morbid obesity, sleep apnea, COPD, and diabetes. PAST SURGICAL HISTORY: Tonsillectomy, trach, cholecystectomy, , cellulitis. MEDICATIONS: List of medicine from home has included: 1. Tramadol. 2. Aldactone 25. 3. Potassium. 4. Protonix. 5. . 6. Synthroid. 7. Gabapentin. 8. Lasix 80. 9. Iron tablets. ALLERGIES: PENICILLIN. REVIEW OF SYSTEMS: Otherwise unobtainable. PHYSICAL EXAMINATION: GENERAL: She has no distress, even though the trachea is a pinpoint. VITAL SIGNS: Sats 95%, pulse 80, respiratory rate 18, and blood pressure 130/80. Orifice examined. Once again, it is pinpoint. CHEST: Decreased breath sounds. No wheezing. CARDIAC: Normal S1 and S2. No gallop. ABDOMEN: No mass. NEUROLOGIC: She is awake and responsive. IMPRESSION: 1. Multiorgan failure problems. 2. Morbid obesity,permanent tracheostomy dislodged multiple times. 3. Hypertension. 4. Obesity. 5. Hypothyroidism. 6. Congestive heart failure. 7. Chronic obstructive pulmonary disease. 8. Anemia. 9. Cirrhosis. PLAN: ENT or General Surgery is consulted by the ER physician as per my request. Incidentally, lab was unremarkable with an H and H of 11 and 35. Lytes were normal. No immediate chest x-ray has been done, one is being ordered. The last chest x-ray dated 07/02/2018 per month ago was normal with small trach in place. We will see the patient in the ICU once she is arise. She has seen Dr. Connor in the past. We will notify Dr. Connor. Consultation note, 70 minutes, 50% direct patient care. Job ID: [id number]
[2018-08-08] MEDS ORDERED: traMADol HCl 50 MG TAB PER TUBE PRN (14:02)
[2018-08-08] MEDS ORDERED: Acetaminophen 325 MG TAB PO PRN (16:18)
[2018-08-08] MEDS ORDERED: Senokot S 8.6-50 MG TAB PO PRN (16:18)
[2018-08-08] MEDS ORDERED: HumaLOG 300 UNITS/3 ML VIAL SC PRN (16:20)
[2018-08-08] MEDS ORDERED: Dextrose 5% in Water 1,000 ML IV PRN (16:20)
[2018-08-08] MEDS ORDERED: Dextrose 50% Abboject 50 ML SYRINGE SLOW IVP PRN (16:20)
--- NOTE | 2018-08-08 16:34 | HP ---
PRIMARY CARE PROVIDER: Perfecto García MD. CHIEF COMPLAINT: Tracheostomy fell out. HISTORY OF PRESENT ILLNESS: Ms. Springer is a pleasant 63-year-old lady who was seen at [facility] on 08/08/2018, after transfer to the emergency room from [facility]. She reports that her tracheostomy tube fell out this morning. She reports difficulty breathing while lying flat. She also reports pain in the epigastrium and retrosternal regions, but is unable to characterize it further. She reports cough. She reports nausea. She denies any vomiting. She denies any urinary symptoms. REVIEW OF SYSTEMS: All other systems reviewed and found to be negative. PAST MEDICAL HISTORY: Hypothyroidism, morbid obesity, paroxysmal atrial fibrillation, hypertension, chronic obstructive pulmonary disease, chronic venous stasis, diastolic congestive heart failure, dyslipidemia, obstructive sleep apnea, chronic respiratory failure with use of home oxygen. PAST SURGICAL HISTORY: Cholecystectomy, section, tonsillectomy, tracheostomy. PSYCHIATRIC HISTORY: Depression. SOCIAL HISTORY: The patient denies tobacco use, alcohol use, or recreational drug use. ALLERGIES: AMOXICILLIN AND PENICILLIN. CURRENT MEDICATIONS: 1. Potassium chloride 20 mEq two tablets daily. 2. Protonix 40 mg daily. 3. Ferrous sulfate 325 mg daily. 4. Aspirin 81 mg daily. 5. Levothyroxine 112 mcg daily. 6. Spironolactone 25 mg daily. 7. Acetaminophen 650 mg as needed. 8. Gabapentin 300 mg daily. 9. Lasix 80 mg daily. 10. Tramadol 50 mg every 6 hours as needed. 11. Simethicone 80 mg every 6 hours as needed. 12. Metolazone 5 mg every 6 hours as needed. FAMILY HISTORY: Diabetes mellitus in both parents. PHYSICAL EXAMINATION: GENERAL: On examination, Ms. Springer is awake and alert, not in acute distress. VITAL SIGNS: Blood pressure is 106/50, pulse 64, respiratory rate 20, and oxygen saturation 97% on 2 L of oxygen. She is afebrile. EYES: No scleral icterus, no conjunctival pallor. ENT: Moist mucosal membranes. No oropharyngeal erythema or exudates. NECK: Supple, nontender, trachea is midline, small tracheostomy opening. RESPIRATORY: Accessory muscles of breathing are not active. Chest wall movements are symmetric bilaterally. LUNGS: Clear to auscultation without wheeze, rhonchi, or crepitations. CARDIOVASCULAR: S1 and S2 are heard, regular. Peripheral pulses palpable. No carotid bruit. No pericardial rub. ABDOMEN: Soft, nontender, bowel sounds heard, no hepatomegaly, no splenomegaly. SKIN: No rashes or subcutaneous nodules. LYMPHATIC: No cervical lymphadenopathy. NEUROLOGIC: Cranial nerves 2 through 12 intact, deep tendon reflexes 2+. MUSCULOSKELETAL: Power is 5/5 in all four extremities. PSYCHIATRIC: Normal mood, normal affect, the patient is oriented to person and place, not to time. LABORATORY DATA: Ms. Springer's labs and investigations were reviewed. A 12- lead electrocardiogram shows normal sinus rhythm, no ST changes to suggest an acute coronary syndrome. Chest x-ray has not been done. She has normal white count, normocytic anemia with hemoglobin 11.5, decreased platelet count of 104,000, last known platelet count 149,000 on 04/12/2018, normal electrolytes, elevated creatinine of 1.15, last known creatinine 0.87 on , elevated total bilirubin of 1.4, decreased albumin of 2.6, otherwise unremarkable liver profile, troponin-I initially indeterminate at 0.0237, subsequently trending down into normal range, and normal lipase. ASSESSMENT AND PLAN: Ms. Springer is a pleasant 63-year-old lady who was seen at [facility] on 08/08/2018. Her problem list includes: 1. Chest pain: Ms. Springer is presenting with chest pain, etiology unclear. She will be admitted to the hospital for monitoring on telemetry as well as stress test. I will defer stress test till the issue of tracheal tube displacement is addressed. 2. Displaced tracheostomy tube: Emergency room physician has discussed her case with the ENT service as well as with Pulmonology Service. Efforts are underway to find a resolution to this problem. 3. Hypothyroidism: Continue Synthroid once clarified. 4. Hypertension: Resume home medications, monitor vital signs and titrate antihypertensives as needed. 5. Acute kidney injury: Mild. Hold nephrotoxic medications, recheck creatinine level. 6. Thrombocytopenia: Etiology unclear, recheck platelet level. 7. Diastolic congestive heart failure: Appears to be stable. 8. Chronic obstructive pulmonary disease: Appears to be stable. Many thanks for allowing me to participate in your patient's care. Please feel free to contact me with any questions or concerns. LEVEL OF RISK: Moderate. LEVEL OF COMPLEXITY: Moderate. Job ID: [id number] MTDD
--- NOTE | 2018-08-08 18:03 | RAD ---
CHEST TWO VIEWS: 08/08/2018 PROVIDED CLINICAL HISTORY: Chest pain. COMPARISON: 07/02/2018 FINDINGS: The cardiac silhouette remains enlarged. A tracheostomy appliance is noted in place. Prominence of the pulmonary vasculature is redemonstrated. No focal consolidation, pleural fluid, or pneumothorax apparent. Degenerative changes are seen involving the thoracic spine. IMPRESSION: No evidence for an acute cardiopulmonary process. POS: [facility]
[2018-08-08] MEDS ORDERED: Folic Acid 1 MG TAB ONE (20:00)
[2018-08-08] MEDS: Ferrous Sulfate 325 MG TAB PO SCH (22:15)
[2018-08-08] MEDS: Gabapentin 300 MG CAP PO SCH (22:16)
--- NOTE | 2018-08-08 22:54 | HP ---
HISTORY OF PRESENT ILLNESS: Love Springer is a 63-year-old female who placed the tracheostomy on 08/06/2017 for respiratory failure, morbid obesity, hypoventilation syndrome, #8 Shiley low-pressure cuff. [facility] a [facility]. Apparently, the tracheostomy became dislodged last night. It was not replaced. She presents to the emergency room this morning and Dr. Brown was called, saw her, could not replace a tracheostomy. ENT was called and perusal of records revealed that I had placed her tracheostomy, thus I was called. When I enter the room, the patient is slightly dyspneic, morbidly obese, and mobility is very poor. Tracheostomy stoma is decreased in size. Using alcohol prep, I then used Berkley sounds to dilate the tracheostomy trach and the tracheostomy tube replaced and the tract with some patient discomfort, but she tolerated it well. She was suctioned, straps applied. The patient tolerated the procedure well. ASSESSMENT AND PLAN: Dislodged tracheostomy tube. I would recommend that this tracheostomy to replace as soon as possible when it is dislodged. If it becomes dislodged, she should report to the emergency room emergently. At this point, the patient is stable for [facility] and I will see her as needed. Job ID: [id number]
[2018-08-09] MEDS ORDERED: traMADol HCl 50 MG TAB ONE (01:42)
[2018-08-09 02:53] VITALS: BMI 47.6
[2018-08-09 05:15] LABS: #Basophils 0.1 thou/uL (0.0-0.2); #Eosinphils 0.4 thou/uL (0.0-0.7); #Lymphocytes 2.6 thou/uL (1.20-3.40); #Monocytes 0.5 thou/uL (0.11-0.59); #Neutrophils 1.8 thou/uL (1.40-6.50); %Basophils 1.8 % (0.0-1.0); %Eosinophils 7.8 % (0.0-10.0); %Lymphocytes 48.1 % (21.0-51.0); %Monocytes 9.7 % (0.0-10.0); %Neutrophils 32.7 % (42.0-75.0); Hemoglobin 11.7 g/dL (12.0-16.0); Mean Corpuscular HGB CONC 33.8 g/dL (32.0-36.0); Mean Corpuscular Hemoglobin 33.6 pg (27.0-31.0); Mean Corpuscular Volume 99.2 fL (78.0-98.0); Mean Platelet Volume 9.5 fL (7.4-10.4); Platelet Count 103 thou/uL (130-400); RBC Distribution Width 15.1 % (11.5-14.5); White Blood Cell (WBC) Count 5.3 thou/uL (4.8-10.8)
[2018-08-09 05:27] LABS: Anion Gap 13 mmol/L (10-20); BUN (Urea Nitrogen) 16 mg/dL (9.8-20.1); Calc. Creatinine Clearance 119 mL/min (70-130); Calcium 8.7 mg/dL (7.8-10.44); Carbon Dioxide 24 mmol/L (23-31); Chloride 106 mmol/L (98-107); Estimated GFR-MDRD 59; Glucose 78 mg/dL (80-115); Sodium 139 mmol/L (136-145)
[2018-08-09] MEDS: Levothyroxine Sodium 112 MCG TAB PO SCH (05:42)
[2018-08-09] MEDS ORDERED: Nitroglycerin 0.4 MG TAB (25 Tab Bottle) PO PRN (09:00)
[2018-08-09] MEDS ORDERED: Regadenoson 0.4 MG/5 ML SYRINGE ONE (09:52)
--- NOTE | 2018-08-09 10:57 | PRG ---
DATE OF SERVICE: 08/09/2018 SUBJECTIVE: Love Springer had tracheostomy tube #[address] Jolley after she pulled trac out, multiple times_ OBJECTIVE: GENERAL: She appears to be in no acute distress. VITAL SIGNS: Sats 98% on 2 L, temperature 97, and blood pressure 130/58. CHEST: No wheezing or crackles. CARDIAC: Normal S1 and S2. No gallops. ABDOMEN: No mass. IMPRESSION: 1. Status post dislodgement of her permanant tracand replacement with a Shiley trach #[address] Jolley. 2. Morbid obesity. 3. Sleep apnea. 4. Chronic obstructive pulmonary disease. She can be discharged to the residential. Pulmonary will follow at a distance. Job ID: [id number] [facility]
[2018-08-09] MEDS ORDERED: Iopamidol 370 76% 100 ML VIAL ONE (12:55)
--- NOTE | 2018-08-09 13:44 | PDOC.PN ---
- Subjective Encounter Start Date: 08/09/18 Encounter Start Time: 13:44 - Objective MAR Reviewed: Yes Vital Signs & Weight: Vital Signs (12 hours) Temp Pulse Resp BP Pulse Ox 08/09/18 11:38 97.8 F 63 18 134/60 98 08/09/18 09:20 99 08/09/18 08:56 97.8 F 65 22 H 130/58 L 99 08/09/18 03:33 97.6 F 67 17 98/53 L 100 08/09/18 03:00 100 08/09/18 02:51 96.3 F L 68 18 103/54 L 100 08/09/18 02:40 100 Weight Weight 269 lb Result Diagrams: 08/09/18 04:39 08/09/18 04:39 Additional Labs: Accuchecks 08/09/18 08/09/18 08/08/18 10:47 05:50 21:48 POC Glucose 72 75 79 EKG Reviewed by me: Yes (Tele: NSR) Phys Exam - Physical Examination Morbid obesity HEENT: moist MMs tracheostomy Respiratory: clear to auscultation bilateral Cardiovascular: RRR Gastrointestinal: soft Neurological: moves all 4 limbs Psychiatric: normal affect Dx/Plan (1) Chest pain Code(s): R07.9 - CHEST PAIN, UNSPECIFIED Status: Acute Comment: await stress test (2) Hypertension Code(s): I10 - ESSENTIAL (PRIMARY) HYPERTENSION Status: Chronic Qualifiers: Hypertension type: essential hypertension Qualified Code(s): I10 - Essential (primary) hypertension Comment: controlled (3) MALISSA (acute kidney injury) Code(s): N17.9 - ACUTE KIDNEY FAILURE, UNSPECIFIED Status: Resolved (4) Tracheostomy complication Code(s): J95.00 - UNSPECIFIED TRACHEOSTOMY COMPLICATION Status: Resolved Comment: tracheostomy replaced - Plan * . Review of Systems - Review of Systems Cardiovascular: negative: chest pain, palpitations, orthopnea, paroxysmal nocturnal dyspnea, edema, light headedness Gastrointestinal: negative: Nausea, Vomiting, Abdominal Pain, Diarrhea, Constipation, Melena, Hematochezia - Medications/Allergies Allergies/Adverse Reactions: Allergies Allergy/AdvReac Type Severity Reaction Status Date / Time Penicillins Allergy Intermediate Rash Verified 04/08/18 17:20 amoxicillin [Amoxicillin] Allergy Verified 04/08/18 17:20 Medications: Current Medications Acetaminophen (Tylenol) 650 mg PO Q4H PRN PRN Reason: Headache/Fever/Mild Pain (1-3) Aspirin (Aspirin Chewable) 81 mg PO QAM [facility] Dextrose/Water (Dextrose 50%) 25 gm SLOW IVP PRN PRN PRN Reason: Hypoglycemia Ferrous Sulfate (Feosol) 325 mg PO BID [facility] Last Admin: 08/08/18 22:15 Dose: Not Given Furosemide (Lasix) 80 mg PO DAILY [facility] Gabapentin (Neurontin) 300 mg PO BID [facility] Last Admin: 08/08/18 22:16 Dose: Not Given Glucagon (Glucagon) 1 mg IM PRN PRN PRN Reason: Hypoglycemia Dextrose/Water (D5w) 1,000 mls @ 0 mls/hr IV .Q0M PRN PRN Reason: Hypoglycemia Insulin Human Lispro (Humalog) 0 units SC .MILD SLIDING SCALE PRN PRN Reason: Mild Correctional Scale Levothyroxine Sodium (Synthroid) 112 mcg PO 0600 [facility] Last Admin: 08/09/18 05:42 Dose: Not Given Nitroglycerin (Nitrostat) 0.4 mg PO Q5MIN PRN PRN Reason: Chest Pain Pantoprazole Sodium (Protonix) 40 mg PO DAILY [facility] Senna/Docusate Sodium (Senokot S) 2 tab PO BID PRN PRN Reason: Constipation Spironolactone (Aldactone) 12.5 mg PO QAM [facility] Tramadol HCl (Ultram) 50 mg PER TUBE Q6H PRN PRN Reason: Pain Last Admin: 08/09/18 01:49 Dose: 50 mg
[2018-08-09] MEDS: Ferrous Sulfate 325 MG TAB PO SCH ×2 (14:50→21:22)
[2018-08-09] MEDS: Gabapentin 300 MG CAP PO SCH ×2 (14:52→21:22)
[2018-08-09] MEDS: Furosemide 80 MG TAB PO SCH (14:52)
[2018-08-09] MEDS: Spironolactone 25 MG TAB PO SCH (14:52)
--- NOTE | 2018-08-09 17:08 | NM ---
STRESS ONLY MYOCARDIAL PERFUSION STUDY: 08/09/18 HISTORY: Chest pain. RADIOPHARMACEUTICAL: 28 millicuries technetium 99m Sestamibi, IV at stress. MEDICATION: 0.4 mg Lexiscan, IV. COMPARISON: 08/03/17. FINDINGS: There is a small area of mild diminished uptake of radiotracer seen within the ventricular apex, but this defect is less prominent than on the study on 08/03/17. No additional perfusion defect is seen on the 180 degree SPECT images. The gated images demonstrate m ild hypokinesis at the septum. There is normal ventricular wall thickening present. The calculated le ft ventricular ejection fraction is 72%. The left ventricular ejection fraction on the prior study wa s 59%. IMPRESSION: 1. Small stable defect in the ventricular apex when compared to study on 08/03/17 and size of the defect is smaller in size. On prior study, this had the appearance of an area of scarring or alternat ively physiologic apical thinning. There is otherwise no defect present on the stress acquisition to suggest an area of ischemia. 2. Normal LVEF at 72%. 3. Mild hypokinesis involving the septum. POS: [facility]
--- NOTE | 2018-08-09 20:18 | CT ---
CT PULMONARY ANGIOGRAM WITH IV CONTRAST AND 3D MIP RECONSTRUCTIONS: 08/09/2018 PROVIDED CLINICAL HISTORY: Chest pain. COMPARISON: 02/22/2017 FINDINGS: The heart is enlarged. Vascular calcification is demonstrated, including coronary calcium. There is no evidence for central or segmental pulmonary embolus. The lungs are free or significant opacity. The airway appears patent and of normal caliber. No pleural fluid or pneumothorax apparent. The vi sualized portions of the upper abdomen demonstrate no acute abnormality. The osseous structures demo nstrate no concerning lytic or blastic lesions. IMPRESSION: 1. No evidence for central or segmental pulmonary embolus. 2. Vascular calcification, including coronary calcium. POS: [facility]
[2018-08-09] MEDS ORDERED: Sodium Chloride 0.9% 10 ML ONE (20:31)
[2018-08-10 06:02] LABS: #Eosinphils 0.4 thou/uL (0.0-0.7); #Lymphocytes 2.4 thou/uL (1.20-3.40); #Monocytes 0.5 thou/uL (0.11-0.59); #Neutrophils 1.7 thou/uL (1.40-6.50); %Eosinophils 7.9 % (0.0-10.0); %Lymphocytes 46.9 % (21.0-51.0); %Neutrophils 34.2 % (42.0-75.0); Hemoglobin 11.7 g/dL (12.0-16.0); Mean Corpuscular HGB CONC 33.7 g/dL (32.0-36.0); Mean Corpuscular Hemoglobin 33.4 pg (27.0-31.0); Mean Platelet Volume 9.5 fL (7.4-10.4); Platelet Count 92 thou/uL (130-400); RBC Distribution Width 15.2 % (11.5-14.5)
[2018-08-10 06:12] LABS: Anion Gap 11 mmol/L (10-20); BUN (Urea Nitrogen) 13 mg/dL (9.8-20.1); Calc. Creatinine Clearance 121 mL/min (70-130); Calcium 8.7 mg/dL (7.8-10.44); Carbon Dioxide 27 mmol/L (23-31); Chloride 102 mmol/L (98-107); Estimated GFR-MDRD 61; Glucose 76 mg/dL (80-115); Potassium 3.5 mmol/L (3.5-5.1); Sodium 136 mmol/L (136-145)
[2018-08-10] MEDS: Levothyroxine Sodium 112 MCG TAB PO SCH (06:38)
[2018-08-10] MEDS: Spironolactone 25 MG TAB PO SCH (11:00)
[2018-08-10] MEDS: Furosemide 80 MG TAB PO SCH (11:00)
[2018-08-10] MEDS ORDERED: Acetaminophen 325 MG TAB PER TUBE PRN (11:00)
[2018-08-10] MEDS: Gabapentin 300 MG CAP PO SCH (11:00)
[2018-08-10] MEDS: Ferrous Sulfate 325 MG TAB PO SCH (11:01)
[2018-08-10] MEDS ORDERED: Senokot S 8.6-50 MG TAB PER TUBE PRN (11:14)
--- NOTE | 2018-08-10 13:50 | PRG ---
DATE OF SERVICE: 08/10/2018 SUBJECTIVE: This morning, she is better. She wants a Passy Rachel valve for speech, one is being ordered. OBJECTIVE: VITAL SIGNS: Sats are 98 on a trach collar, temperature 97.5, blood pressure 109/56. CHEST: Decreased breath sounds. No wheezing. CARDIAC: Normal S1 and S2 . ABDOMEN: No mass. IMAGING STUDIES: She had a CT of chest and thorax ordered yesterday for her ongoing chest pain, which was otherwise unremarkable. IMPRESSION: 1. Morbid obesity. 2. Sleep apnea. 3. Chronic obstructive pulmonary disease, recurrent trach removal. PLAN: She is discharged home today, follow up with the primary care physician. Job ID: [id number]
[2018-08-10 20:33] VITALS: TEMP 965
[2018-08-10 20:35] VITALS: BP 117/57
--- NOTE | 2018-08-10 23:03 | DIS ---
DATE OF ADMISSION: 08/08/2018 DATE OF DISCHARGE: 08/10/2018 PRIMARY CARE PROVIDER: Perfecto García MD DISCHARGE DIAGNOSES: 1. Dislodged tracheostomy tube. 2. Chest pain. 3. Most likely musculoskeletal etiology for chest pain. CONDITION OF PATIENT ON THE DAY OF DISCHARGE: Stable. I assessed Ms. Springer on the day of discharge. She denies any chest pain or shortness of breath. Vital signs are stable. S1 and S2 are heard, regular. Lungs are clear to auscultation bilaterally. DISCHARGE MEDICATIONS: No change was made to her pre-admission home medications as dictated in my history and physical note dated August 08, 2018. CONSULTATIONS DURING THIS HOSPITALIZATION: 1. Pulmonary and Critical Care Medicine, Chicho Brown MD. 2. General Surgery, Jonh Jolley MD. HOSPITAL COURSE: Ms. Springer is a pleasant 63-year-old lady, who was admitted to [facility] on August 08, 2018 for chest pain and dislodged tracheostomy tube. She was seen by Pulmonary Critical Care Medicine and General Surgery Service. The tracheostomy tube was replaced at bedside by General Surgery Service. She also complained of chest pain. Nuclear stress test showed small stable defect in the ventricular apex when compared to study on August 03, 2018. She had normal LVEF at 72% and mild hypokinesis involving the septum. She had an elevated D-dimer. CT angiogram of the chest did not show any evidence for central or segmental pulmonary embolus. She had vascular calcification including coronary calcium. She improved clinically and is being discharged back to [facility] in a stable condition. DISCHARGE DESTINATION: [facility], from where patient was admitted to the hospital. Job ID: [id number]
[2018-08-11] MEDS ORDERED: Levothyroxine Sodium 112 MCG TAB PER TUBE SCH (06:00)
[2018-08-11] MEDS ORDERED: Spironolactone 25 MG TAB PER TUBE SCH (09:00)
[2018-08-11] MEDS ORDERED: Pantoprazole 40 MG GRANULES PACKET PER TUBE SCH (09:00)
[2018-08-11] MEDS ORDERED: Furosemide 40 MG TAB PER TUBE SCH (09:00)
--- NOTE | 2018-08-13 22:10 | EKG ---
Test Reason : TRACH OUT Blood Pressure : / mmHG Vent. Rate : 066 BPM Atrial Rate : 065 BPM P-R Int : 000 ms QRS Dur : 100 ms QT Int : 464 ms P-R-T Axes : 000 -07 020 degrees QTc Int : 486 ms Accelerated Junctional rhythm Cannot rule out Anterior infarct , age undetermined Abnormal ECG No changes 15-MAR-18 Confirmed by KELLEY HILLMAN DO ([id number]), newspaper or periodical editor ZARA DILL ([id number]) on 08/13/2018 10:09:33 PM Referred By: KADY Confirmed By:KELLEY HILLMAN DO
== END 2018-08-10 14:05 ==
LOC: ERS 07:52 → ERHOLD 10:26 → INTOOBSV 10:26 → 2NO 08-09 02:12
PROVIDERS: ADMIT Internal Medicine; ATTEND Internal Medicine
DX: J95.03 Malfunction of tracheostomy stoma (principal); R07.9 Chest pain, unspecified; I11.0 Hypertensive heart disease with heart failure; I50.30 Unspecified diastolic (congestive) heart failure; J44.9 Chronic obstructive pulmonary disease, unspecified; N17.9 Acute kidney failure, unspecified; E03.9 Hypothyroidism, unspecified; D69.6 Thrombocytopenia, unspecified; I48.0 Paroxysmal atrial fibrillation; G47.33 Obstructive sleep apnea (adult) (pediatric); J96.10 Chronic respiratory failure, unspecified whether with hypoxia or hypercapnia; K74.60 Unspecified cirrhosis of liver; E66.01 Morbid (severe) obesity due to excess calories; Z68.42 Body mass index [BMI] 45.0-49.9, adult; Z79.82 Long term (current) use of aspirin; Z79.899 Other long term (current) drug therapy; Z99.81 Dependence on supplemental oxygen; Z88.0 Allergy status to penicillin
CPT/HCPCS: 31502; 36415; 36416; 71046; 71275; 78452; 80048; 80053; 82553; 83690; 84484; 85025; 85379; 93005; 93017; 94640; 94760; A9500; G0378; J2785

== ENCOUNTER 2018-09-29 04:17 | Emergency (ER) | payer OTHER ==
[2018-09-29] MEDS ORDERED: diphenhydrAMINE 50 MG/ML VIAL ONE (05:01)
[2018-09-29] MEDS ORDERED: Metoclopramide 10 MG/10 ML UDCUP ONE (05:01)
[2018-09-29] MEDS ORDERED: Acetaminophen 500 MG TAB ONE (05:01)
[2018-09-29] MEDS ORDERED: Metoclopramide HCl 10 MG/2 ML VIAL ONE (05:02)
[2018-09-29 05:35] LABS: Hemoglobin 12.2 g/dL (12.0-16.0); Mean Corpuscular HGB CONC 32.2 g/dL (32.0-36.0); Mean Corpuscular Hemoglobin 33.5 pg (27.0-31.0); RBC Distribution Width 15.3 % (11.5-14.5); Red Blood Cell (RBC) Count 3.63 mill/uL (4.20-5.40); White Blood Cell (WBC) Count 5.5 thou/uL (4.8-10.8)
[2018-09-29 05:50] LABS: #Basophils 0.1 thou/uL (0.0-0.2); #Eosinphils 0.3 thou/uL (0.0-0.7); #Lymphocytes 2.2 thou/uL (1.20-3.40); #Monocytes 0.8 thou/uL (0.11-0.59); #Neutrophils 2.1 thou/uL (1.40-6.50); %Basophils 1.7 % (0.0-1.0); %Eosinophils 6.3 % (0.0-10.0); %Lymphocytes 40.6 % (21.0-51.0); %Monocytes 13.6 % (0.0-10.0); %Neutrophils 37.9 % (42.0-75.0); Mean Platelet Volume 9.2 fL (7.4-10.4); Platelet Count 104 thou/uL (130-400)
[2018-09-29 06:44] LABS: Albumin 2.6 g/dL (3.4-4.8)
[2018-09-29 06:45] LABS: Chloride 104 mmol/L (98-107); Potassium 3.4 mmol/L (3.5-5.1); Sodium 139 mmol/L (136-145)
[2018-09-29 06:46] LABS: Calcium 8.4 mg/dL (7.8-10.44); Glucose 88 mg/dL (80-115)
[2018-09-29 06:47] LABS: Globulin 4.7 g/dL (2.4-3.5); Protein, Total 7.3 g/dL (6.0-8.3)
[2018-09-29 06:48] LABS: Anion Gap 11 mmol/L (10-20); Bilirubin, Total 1.5 mg/dL (0.2-1.2); Carbon Dioxide 27 mmol/L (23-31)
[2018-09-29 06:49] LABS: Alkaline Phosphatase 165 U/L (40-150)
[2018-09-29 06:50] LABS: BUN (Urea Nitrogen) 15 mg/dL (9.8-20.1); Calc. Creatinine Clearance 0 mL/min (70-130); Estimated GFR-MDRD 60
[2018-09-29 06:51] LABS: AST (SGOT) 32 U/L (5-34)
[2018-09-29 06:52] LABS: ALT (SGPT) 13 U/L (8-55)
--- NOTE | 2018-09-29 07:30 | CT ---
CT BRAIN WITHOUT CONTRAST: Indication: History of fall from bed onto floor. Head pain. Comparison: 07-07-17 FINDINGS: No acute infarct, hemorrhage, or hydrocephalus is present. Septum pellucidum and third ventricle are midline. Skull and intracranial soft tissues appear within normal limits. IMPRESSION: No acute intracranial abnormality. POS: [facility]
== END 2018-09-29 08:52 ==
LOC: ERS 04:17
DX: R51 Headache (principal); D64.9 Anemia, unspecified; E78.5 Hyperlipidemia, unspecified; E10.9 Type 1 diabetes mellitus without complications; E66.9 Obesity, unspecified; E03.9 Hypothyroidism, unspecified; J44.9 Chronic obstructive pulmonary disease, unspecified; F32.9 Major depressive disorder, single episode, unspecified; Z87.891 Personal history of nicotine dependence; Z79.82 Long term (current) use of aspirin; Z79.899 Other long term (current) drug therapy
CPT/HCPCS: 36415; 36416; 70450; 80053; 84484; 85025; 93005; 96361; 96365; 96375; J1200; J2765; J8597

== ENCOUNTER 2018-11-18 12:04 | Emergency (ER) | payer OTHER ==
[~2018-11-18 12:04] MED LIST: ISOVUE-370 76%-LOCM 1 ML ONE
[2018-11-18] MEDS ORDERED: Ondansetron PF 4 MG/2 ML Vial ONE (12:08)
[2018-11-18] MEDS ORDERED: Meclizine HCl 25 MG TAB ONE (12:48)
[2018-11-18 13:09] LABS: INR-International Normal Ratio 1.4; PTT 36.1 SEC (22.9-36.1)
[2018-11-18 13:19] LABS: ALT (SGPT) 15 U/L (8-55); AST (SGOT) 40 U/L (5-34); Alkaline Phosphatase 173 U/L (40-150); Anion Gap 15 mmol/L (10-20); BUN (Urea Nitrogen) 16 mg/dL (9.8-20.1); Bilirubin, Total 1.7 mg/dL (0.2-1.2); Calc. Creatinine Clearance 0 mL/min (70-130); Calcium 8.7 mg/dL (7.8-10.44); Carbon Dioxide 26 mmol/L (23-31); Chloride 104 mmol/L (98-107); Estimated GFR-MDRD 59; Globulin 4.8 g/dL (2.4-3.5); Glucose 108 mg/dL (80-115); Potassium 3.6 mmol/L (3.5-5.1); Protein, Total 7.8 g/dL (6.0-8.3); Sodium 141 mmol/L (136-145)
[2018-11-18 13:24] LABS: #Basophils 0.1 thou/uL (0.0-0.2); #Eosinphils 0.3 thou/uL (0.0-0.7); #Lymphocytes 2.1 thou/uL (1.20-3.40); #Monocytes 0.6 thou/uL (0.11-0.59); #Neutrophils 2.4 thou/uL (1.40-6.50); %Basophils 1.4 % (0.0-1.0); %Eosinophils 5.7 % (0.0-10.0); %Lymphocytes 38.3 % (21.0-51.0); %Neutrophils 43.6 % (42.0-75.0); Hemoglobin 12.5 g/dL (12.0-16.0); MDiff Complete? YES; Macrocytosis SLIGHT = 6-15 cells (100X) (0-5/hpf); Mean Corpuscular HGB CONC 32.1 g/dL (32.0-36.0); Mean Corpuscular Hemoglobin 33.5 pg (27.0-31.0); Mean Platelet Volume 9.9 fL (7.4-10.4); Platelet Count 101 thou/uL (130-400); Platelet Morphology Comment Appears Decreased; RBC Distribution Width 14.7 % (11.5-14.5); Red Blood Cell (RBC) Count 3.74 mill/uL (4.20-5.40); White Blood Cell (WBC) Count 5.5 thou/uL (4.8-10.8)
--- NOTE | 2018-11-18 14:42 | CT ---
Noncontrast CT head CTA of the head with and without IV contrast and 3-D reformatted imaging CTA of the neck with IV contrast and 3-D reformatted imaging 3 D Volume Rendering: DATE: 11/18/2018 12:32 PM HISTORY: Vertigo with nausea and vomiting. History of TIA. COMPARISON: Noncontrast CT head on 07/07/2017. FINDINGS: Noncontrast CT head: There is no evidence of a hemorrhage, acute infarction, mass effect, or midline shift. Ventricular system is normal in size, shape, and position. There is been no interval change from prior study in 2017. CTA Head: Vascular calcifications are seen in the aortic arch which is normal in caliber. Right: CCA:No significant stenosis. ICA:Mild scattered vascular calcifications are seen without focal stenosis. The right internal caroti d artery is tortuous but patent without significant stenosis. MCA:No significant stenosis. NICOLETTE:No significant stenosis. COPPERSMITH APPRENTICE:No significant stenosis. LEFT: CCA:No significant stenosis. ICA:There are dense vascular calcifications seen at the left internal carotid artery origin with mild degree of narrowing, but the degree of stenosis is less than 50% based on NASCET criteria. MCA:No significant stenosis. NICOLETTE:No significant stenosis. COPPERSMITH APPRENTICE:No significant stenosis. Vertebrobasilar System: Left Vertebral:No significant stenosis. Right Vertebral:No significant stenosis. Basilar:No significant stenosis. No focal aneurysm is seen within the limitations of the technique of this exam. Scattered interstitial and ground glass densities are seen in the upper lung zones likely attributabl e to volume loss. This exam is obtained in expiratory phase of imaging. Tracheostomy device is noted in place. Degenerative changes are seen in the cervical spine. IMPRESSION: 1. No acute intracranial abnormalities demonstrated. 2. No significant stenosis is seen within the bilateral internal carotid arteries. Tibial arteries ar e also patent bilaterally.
--- NOTE | 2018-11-22 15:33 | CT ---
Noncontrast CT head CTA of the head with and without IV contrast and 3-D reformatted imaging CTA of the neck with IV contrast and 3-D reformatted imaging 3 D Volume Rendering: DATE: 11/18/2018 12:32 PM HISTORY: Vertigo with nausea and vomiting. History of TIA. COMPARISON: Noncontrast CT head on 07/07/2017. FINDINGS: Noncontrast CT head: There is no evidence of a hemorrhage, acute infarction, mass effect, or midline shift. Ventricular system is normal in size, shape, and position. There is been no interval change from prior study in 2017. CTA Head: Vascular calcifications are seen in the aortic arch which is normal in caliber. Right: CCA:No significant stenosis. ICA:Mild scattered vascular calcifications are seen without focal stenosis. The right internal caroti d artery is tortuous but patent without significant stenosis. MCA:No significant stenosis. NICOLETTE:No significant stenosis. TERRAZZO FINISHER HELPER:No significant stenosis. LEFT: CCA:No significant stenosis. ICA:There are dense vascular calcifications seen at the left internal carotid artery origin with mild degree of narrowing, but the degree of stenosis is less than 50% based on NASCET criteria. MCA:No significant stenosis. NICOLETTE:No significant stenosis. TERRAZZO FINISHER HELPER:No significant stenosis. Vertebrobasilar System: Left Vertebral:No significant stenosis. Right Vertebral:No significant stenosis. Basilar:No significant stenosis. No focal aneurysm is seen within the limitations of the technique of this exam. Scattered interstitial and ground glass densities are seen in the upper lung zones likely attributabl e to volume loss. This exam is obtained in expiratory phase of imaging. Tracheostomy device is noted in place. Degenerative changes are seen in the cervical spine. IMPRESSION: 1. No acute intracranial abnormalities demonstrated. 2. No significant stenosis is seen within the bilateral internal carotid arteries. Vertebral arteries are also patent bilaterally. Transcribed Date/Time: 11/22/2018 3:32 PM
== END 2018-11-18 16:02 | disposition home or self-care (01) ==
LOC: ERS 12:04
DX: R11.2 Nausea with vomiting, unspecified (principal); I10 Essential (primary) hypertension; D64.9 Anemia, unspecified; E78.5 Hyperlipidemia, unspecified; E10.9 Type 1 diabetes mellitus without complications; E03.9 Hypothyroidism, unspecified; E66.9 Obesity, unspecified; J44.9 Chronic obstructive pulmonary disease, unspecified; F32.9 Major depressive disorder, single episode, unspecified; Z87.891 Personal history of nicotine dependence; Z79.899 Other long term (current) drug therapy; Z79.82 Long term (current) use of aspirin
CPT/HCPCS: 36415; 70496; 70498; 80053; 84484; 85025; 85610; 85730; 93005; 96374; J2405; J8499; Q9966

== ENCOUNTER 2018-11-21 14:52 | Inpatient (IN) | payer OTHER ==
[2018-11-21] MEDS ORDERED: Morphine 4 MG/ML VIAL ONE (15:11)
[2018-11-21 16:30] LABS: Bilirubin Negative (Negative); Blood, Urine Negative (Negative); Clarity CLOUDY (Clear); Glucose, Urine (Dipstick) Negative (Negative); Leukocyte Large (Negative); Nitrite Positive (Negative); Protein, Urine (Dipstick) Negative (Neg-Trace); Specific Gravity, Urine 1.014 (1.002-1.036); pH, Urine 5.5 (5.0-9.0)
[2018-11-21 16:31] LABS: Bacteria/HPF 4+ HPF (None Seen); RBC/HPF 0-3 HPF (0-3); Squamous Epithelial None Seen HPF (0-3)
[2018-11-21 16:33] LABS: Pathc Cast-AUWi Flag 2.72 (0-2.49)
[2018-11-21 16:53] LABS: Hyaline Casts/LPF 0-3 HYALINE CAST LPF (0-3 Hyaline); Other Casts/LPF None Seen LPF (0-3 Hyaline)
[2018-11-21] MEDS ORDERED: Bisacodyl 5 MG TAB PO PRN (18:29)
[2018-11-21] MEDS ORDERED: cloNIDine 0.1 MG TAB PO PRN (18:29)
[2018-11-21] MEDS ORDERED: Senokot S 8.6-50 MG TAB PO PRN (18:29)
[2018-11-21] MEDS ORDERED: Ondansetron PF 4 MG/2 ML Vial IVP PRN (18:29)
[2018-11-21] MEDS ORDERED: hydrALAZINE 20 MG/ML VIAL SLOW IVP PRN (18:29)
[2018-11-21] MEDS ORDERED: Diabetic Tussin 200 MG/10 ML UDCUP PO PRN (18:29)
[2018-11-21] MEDS ORDERED: Acetaminophen 325 MG TAB PO PRN (18:29)
[2018-11-21] MEDS ORDERED: Nitroglycerin 0.4 MG TAB (25 Tab Bottle) SL PRN (18:29)
[2018-11-21] MEDS ORDERED: Benzonatate 100 MG CAP PO PRN (18:29)
--- NOTE | 2018-11-21 19:09 | HP ---
PRIMARY CARE PHYSICIAN: Perfecto García MD. The patient resides at [facility]. CHIEF COMPLAINT: Pulled out tracheostomy tube. HISTORY OF PRESENTING ILLNESS: Ms. Springer is a 63-year-old female with known history of chronic tracheostomy status, as well as history of hypothyroidism, paroxysmal atrial fibrillation, hypertension, COPD, diastolic congestive heart failure, dyslipidemia, obstructive sleep apnea, and chronic respiratory failure with home oxygen; who was sent out from [facility] with the above-mentioned complaint. History is mainly obtained by the emergency room record. The patient is a poor historian. She just complains of some cough without any phlegm production. The patient was sent over when she was found to have dislodged tracheostomy tube in the rounds at [facility]. She was complaining of pain in that area. She was otherwise asymptomatic and has had no recent illnesses. Denies any chest pain, shortness of breath, wheezing, loss of consciousness. Denies any nausea, vomiting, diarrhea, or abdominal pain. Denies any dysuria, frequency, urgency, fever, or chills. Upon presentation to the ER, she was hemodynamically stable with a blood pressure of 141/79, pulse of 76, temperature 97.8. Emergency room physician contacted Dr. Quiñones, on-call meat counter clerk and he saw the patient at bedside in the emergency room. Attempt was made to put the tube back at bedside, but he was unable to do so, so the patient is being admitted to [facility] for general surgery consult to replace the tube back in. REVIEW OF SYSTEMS: All other review of system were reviewed and were found to be negative except for those mentioned in the history and physical. PAST MEDICAL HISTORY: 1. Hypothyroidism. 2. Morbid obesity. 3. Paroxysmal atrial fibrillation. 4. Hypertension. 5. COPD. 6. Chronic respiratory failure, on home oxygen. 7. Chronic tracheostomy status. 8. Chronic venous stasis. 9. Diastolic congestive heart failure, chronic, stage II. 10. Dyslipidemia. 11. Obstructive sleep apnea. PAST SURGICAL HISTORY: 1. Cholecystectomy. 2. section. 3. Tonsillectomy. 4. Tracheostomy. PAST PSYCHIATRIC HISTORY: Depression. SOCIAL HISTORY: She has no history of drug, tobacco, or alcohol abuse. Permanent resident of [facility]. She reports that she has a son, who is 18 years of age. ALLERGIES: AMOXICILLIN AND PENICILLIN. CURRENT MEDICATIONS: They further need to be clarified, but according to the discharge summary dictated by Dr. Monroy on 08/10/2018. She was discharged on the following, 1. Potassium chloride 20 mEq daily. 2. Protonix 40 mg daily. 3. Ferrous sulfate 325 mg daily. 4. Aspirin 81 mg daily. 5. Levothyroxine 112 mcg daily. 6. Aldactone 25 mg daily. 7. Tylenol p.r.n. 8. Gabapentin 300 mg daily. 9. Lasix 80 mg daily. 10. Tramadol. 11. Simethicone p.r.n. 12. Metolazone 5 mg every 6 hours as needed. Please note that these medication list might not be correct. This further needs to be confirmed. FAMILY HISTORY: Diabetes mellitus in both parents. PHYSICAL EXAMINATION: VITAL SIGNS: Upon presentation, blood pressure 141/79, pulse of 76, respirations 22, saturating 100% on room air, temperature 97.8. GENERAL: No acute distress. Awake, alert, and oriented x3. Lying comfortably in bed. She is making jokes, but has been coughing intermittently during interview. HEENT: Mucous membrane is moist and pink. No oropharyngeal exudate or erythema. Head is normocephalic and atraumatic. Pupils are equal and reactive to light and accommodation. Mucous membrane is slightly red and dry. NECK: Supple without any lymphadenopathy, JVD, or bruit. Tracheostomy site is patent with some dry blood around it. CHEST: Clear to auscultation without any wheezing, rales, or rhonchi. HEART: Rate and rhythm are regular without any murmurs, rubs, or gallops. ABDOMEN: Obese, soft, nontender, nondistended. EXTREMITIES: Left lower extremity wound without erythema, edema, or purulence. Chronic lower extremity venous stasis changes are noticed. NEUROLOGICAL: Nonfocal. PSYCHIATRIC: Normal affect. SKIN: Free of any rashes or bruises. Feels warm and dry to touch. IMPRESSION AND PLAN: 1. Dislodged tracheostomy tube. The patient will be admitted overnight with General surgery consultation to replace the tube in the morning. She has otherwise no acute issues. She is quite comfortable on room air. We will do supplemental oxygen as necessary. 2. Hypothyroidism. Restart Synthroid once the dose is clarified. 3. Hypertension, well controlled. Restart home medications once the dosage is confirmed. 4. History of diastolic congestive heart failure. She appears to be compensated and stable at this time. Restart Lasix and other medications once confirmed. 5. Chronic obstructive pulmonary disease. We will use p.r.n. nebulizer, but appears to be compensated for now. 6. Code status. Full code discussed with the patient. DISPOSITION: Ms. Springer is currently being admitted to [facility] under observation status for a dislodged tube, which could not be replaced by Pulmonary Medicine at bedside in the ER. Further management will depend upon her clinical course. Job ID: [id number]
[2018-11-21 19:58] LABS: Anion Gap 13 mmol/L (10-20); BUN (Urea Nitrogen) 17 mg/dL (9.8-20.1); Calc. Creatinine Clearance 0 mL/min (70-130); Calcium 8.7 mg/dL (7.8-10.44); Carbon Dioxide 27 mmol/L (23-31); Chloride 102 mmol/L (98-107); Estimated GFR-MDRD 63; Glucose 72 mg/dL (80-115); Potassium 3.6 mmol/L (3.5-5.1); Sodium 138 mmol/L (136-145)
[2018-11-21] MEDS ORDERED: guaiFENesin ER 600 MG TAB PO SCH (21:00)
[2018-11-21] MEDS ORDERED: guaiFENesin 200 MG TAB PO SCH (22:15)
[2018-11-21] MEDS: Famotidine/PF 20 mg/2ml Vial SLOW IVP SCH (23:10)
--- NOTE | 2018-11-22 00:40 | CON ---
DATE OF CONSULTATION: 11/21/2018 SERVICE: Pulmonary Medicine. REASON FOR CONSULT: Tracheostomy fell out. HISTORY OF PRESENT ILLNESS: The patient is a 63-year-old white female. She was in her usual state of health when she ended up presenting to the emergency department. She was brought here from her nursing facility because her tracheostomy fell out. It is not clear when this occurred. That being said, during trach care, it was identified to be out. It could not be replaced. As such, she was subsequently transitioned back to the hospital. In the emergency department, I was called to evaluate the patient. An attempt at replacing the tracheostomy was made as detailed below. It was indicating she had some shortness of breath while lying flat, but seemed to be fairly comfortable sitting upright. Prior to this event, she was in her usual state of health. PAST MEDICAL HISTORY: 1. Morbid obesity. 2. Paroxysmal atrial fibrillation. 3. Hypothyroidism. 4. Hypertension. 5. Dyslipidemia. 6. Chronic diastolic failure heart failure. 7. Obstructive sleep apnea. 8. Chronic hypoxic respiratory failure. 9. COPD, possible. PAST SURGICAL HISTORY: 1. Cholecystectomy. 2. section. 3. Tonsillectomy. 4. Tracheostomy. 5. History of chest tube. 6. PEG tube. FAMILY HISTORY: Noncontributory. SOCIAL HISTORY: She currently lives in a nursing facility and has no access to alcohol, tobacco, or illicit drug use. She is [place]-speaking only. ALLERGIES: PENICILLIN. MEDICATIONS: List of her home medications were reviewed. No specific updates were made at this time. REVIEW OF SYSTEMS: General, head, ears, eyes, nose, throat, cardiovascular, respiratory, GI, , musculoskeletal, neurologic, and skin is negative except as mentioned in HPI. PHYSICAL EXAMINATION: VITAL SIGNS: Afebrile, pulse 64, blood pressure 91/55, respirations 18, saturation 95% on room air. GENERAL: The patient is awake and alert, in no apparent distress. LUNGS: Excellent air entry. There is no prolonged expiratory phase. No crackles are identified. HEART: Normal rate and regular. ABDOMEN: Soft, nontender, and nondistended. Bowel sounds are positive. MUSCULOSKELETAL: No cyanosis or clubbing. There is no pitting in the bilateral lower extremities. NEUROLOGIC: Grossly nonfocal. LABORATORY DATA: Pending. IMAGING: None. ASSESSMENT: 1. Chronic hypoxic respiratory failure. 2. Obstructive sleep apnea, severe. 3. Morbid obesity. 4. History of tracheostomy, status post accidental decannulation. DISCUSSION AND PLAN: I made an attempt at replacing the tracheostomy. There was absolutely no way that it was going in. I then got the bronchoscope. I was able to barely cannulate the bronchoscope with significant effort into the trachea. That being said, once this was in place, there was absolutely no hope of threading the tracheostomy over the disposable bronchoscope. As such, additional efforts were abandoned. I have requested the emergency room to have the patient admitted for a very close observation, either the IMCU, or the telemetry unit. We would like to see whether or not she requires repeat tracheostomy, but if she needs one, surgical procedure will likely be indicated. 70 minutes have been devoted to this patient in various activities. I personally reviewed all imaging studies and laboratory data noted within this document. For fifty percent of this time, I was interacting with the patient at the bedside or coordinating care with the care team. For the remainder of the time I was immediately available to the patient in the hospital unit. Job ID: [id number] MTDD
[2018-11-22 08:01] LABS: Anion Gap 11 mmol/L (10-20); BUN (Urea Nitrogen) 14 mg/dL (9.8-20.1); Calc. Creatinine Clearance 142 mL/min (70-130); Calcium 8.5 mg/dL (7.8-10.44); Carbon Dioxide 28 mmol/L (23-31); Chloride 103 mmol/L (98-107); Estimated GFR-MDRD 71; Glucose 75 mg/dL (80-115); Potassium 3.7 mmol/L (3.5-5.1); Sodium 138 mmol/L (136-145)
--- NOTE | 2018-11-22 09:37 | RAD ---
EXAM: CHEST ONE VIEW HISTORY: COPD COMPARISON: 07/02/2018 FINDINGS: Cardiac silhouette remains magnified by projection but does appear mildly enlarged. Pulmonary vascula ture is at the upper limits of normal but similar to the prior exam. Linear densities are seen in the left hilar region probably due to vascular structures. There is no consolidation or pleural fluid seen. Degenerative changes are seen in the spine. Chest is otherwise stable from prior exam. IMPRESSION: 1. Previously seen tracheostomy device is not visualized. 2. Mild cardiomegaly. 3. Mild atelectasis left midlung zone, but there is otherwise no acute cardiopulmonary process.
[2018-11-22] MEDS: Enoxaparin Sodium 40 MG/0.4 ML SYRINGE SC SCH (10:14)
[2018-11-22] MEDS: guaiFENesin 200 MG TAB PO SCH ×2 (10:14→22:12)
[2018-11-22] MEDS: Famotidine/PF 20 mg/2ml Vial SLOW IVP SCH ×2 (10:14→22:12)
[2018-11-22] MEDS: Sodium Chloride 0.9% 1,000 ML IV SCH ×2 (10:57→22:18)
--- NOTE | 2018-11-22 11:13 | PRG ---
DATE OF SERVICE: 11/22/2018 SUBJECTIVE: Love Springer is a 63-year-old morbidly obese female, trach dislodged. She is in the hospital here. Dr. Quiñones tried multiple times to pass the tube was unsuccessful. He is going to call surgery to replace the tube back again. She is morbidly obese. Minimally responsive. Vital signs are relatively stable. Tracheostomy site obviously is markedly narrowed. OBJECTIVE: VITAL SIGNS: Saturations on a trach collar are 100%, blood pressure 115/58, pulse 80, respiratory rate 18. CHEST: Decreased breath sounds. No wheezing. CARDIAC: Normal S1, S2. No gallops. ABDOMEN: No masses. LABORATORY DATA: Lytes are normal. Urine shows infection. Chemistry profile shows BUN and creatinine are normal. Lytes are normal. I do not see a chest x-ray, one is being ordered. She had a CT angio done last night, which showed no evidence of any abnormality. IMPRESSION: Morbid obesity, recurrent dislodgement of the trachea, sleep apnea, chronic obstructive pulmonary disease. Surgery is being consulted to replace permanent trach. Otherwise, once trach is in place, she can be discharged back home. Pulmonary will follow while in the MICU. Job ID: [id number]
--- NOTE | 2018-11-22 11:46 | HP ---
HISTORY OF PRESENT ILLNESS: Love Springer is a 63-year-old female, who lives in the halfway. I placed a tracheostomy and a central line on 08/06/2017. She lives at [facility]. Apparently, this was dislodged, it was not replaced, had been left out too long, presents to the emergency room, admitted to [facility], seen by the hospitalist service and Dr. Quiñones. I have been asked to surgically place a new tracheostomy as she requires this from her morbid obesity, metabolic syndrome, hypoventilation, sleep apnea standpoint. ALLERGIES: 1. PENICILLIN. 2. AMOXICILLIN. SOCIAL HISTORY: Tobacco, none. Alcohol, none. MEDICATIONS: At halfway, [facility]; 1. Levothyroxine. 2. Metolazone 5 mg q.i.d. p.r.n. 3. Tylenol p.r.n. 4. Tramadol p.r.n. 5. Protonix daily. 6. Nystatin p.r.n. 7. Lasix 80 mg daily. 8. Ferrous sulfate 325 b.i.d. 9. Spironolactone 12.5 a.m. 10. Aspirin 81 mg a day. 11. Gabapentin 300 mg b.i.d. PAST SURGICAL HISTORY: 1. Tracheostomy and central line I placed in 2018. 2. PEG tube in place, placed by Dr. Perez on 08/11/2017. 3. Cholecystectomy. 4. . 5. Tonsillectomy. 6. Incision and drainage of leg infection. PAST MEDICAL HISTORY: 1. Hypothyroidism. 2. Morbid obesity. 3. Paroxysmal atrial fibrillation. 4. Hypertension. 5. COPD. 6. Sleep apnea. 7. Chronic venous stasis. 8. Diastolic congestive heart failure. 9. Depression. PHYSICAL EXAMINATION: VITAL SIGNS: Height 5 feet 3 inches, weight 276 pounds, 48 BMI. HEAD, EARS, EYES, NOSE, AND THROAT: Unremarkable. LUNGS: Clear to auscultation. CARDIAC: Regular rate and rhythm without murmur or gallop. ABDOMEN: Soft, obese, and nontender. PEG tube in place. NECK: Tracheostomy in place, but mostly epithelialized, nonvisible opening. LABORATORY DATA: Electrolytes normal. Hemoglobin 12 and white count 5. ASSESSMENT/PLAN: Dislodged tracheostomy, that was neglected and not replaced, now requiring surgical replacement. I notified halfway that this should be replaced as soon as possible at the halfway if dislodged. Plan surgical placement of a tracheostomy today. Risks and benefits explained, she consents. Job ID: [id number]
[2018-11-22] MEDS ORDERED: Nystatin Powder 15 GM BOT TOP PRN (16:15)
[2018-11-22] MEDS ORDERED: Acetaminophen 325 MG TAB PO PRN (16:15)
[2018-11-22] MEDS ORDERED: Metolazone 5 MG TAB PO PRN (16:30)
[2018-11-22] MEDS ORDERED: traMADol HCl 50 MG TAB PO PRN (16:34)
--- NOTE | 2018-11-22 16:45 | PDOC.PN ---
- Subjective Encounter Start Date: 11/22/18 Encounter Start Time: 16:35 Subjective: f/u for dislodged tracheostomy with plans for reinsertion today. No new -: issues reported and pt tolerating T-collar with supplemental O2. - Objective MAR Reviewed: Yes Vital Signs & Weight: Vital Signs (12 hours) Temp Pulse Ox 11/22/18 11:00 97.3 F L 11/22/18 08:00 100 11/22/18 07:00 97.0 F L Weight Weight 276 lb 3.2 oz Most Recent Monitor Data Heart Rate from ECG 72 NIBP 117/58 NIBP BP-Mean 77 Respiration from ECG 18 SpO2 100 I&O: 11/21/18 11/22/18 11/23/18 06:59 06:59 06:59 Intake Total 300 Output Total 800 Balance -500 Result Diagrams: 11/22/18 06:52 Additional Labs: Accuchecks 11/22/18 05:42 POC Glucose 78 Microbiology 11/21/18 16:08 Urine Straight Catheter Urine Culture - Preliminary Presumptive Escherichia coli Radiology Reviewed by me: Yes (PCXR - mild cardiomegaly, no acute process) EKG Reviewed by me: Yes (Tele - A-fib in 70's) Phys Exam - Physical Examination Constitutional: NAD HEENT: PERRLA, sclera anicteric, oral pharynx no lesions Neck: no JVD, supple, full ROM diminished in bases Respiratory: no wheezing S1, S2 Cardiovascular: no significant murmur, no rub, irregular obese Gastrointestinal: soft, non-tender, no distention, positive bowel sounds Musculoskeletal: pulses present, edema present Neurological: normal sensation, moves all 4 limbs Psychiatric: A&O x 3 Skin: normal turgor, cap refill <2 seconds Dx/Plan (1) Tracheostomy complication Code(s): J95.00 - UNSPECIFIED TRACHEOSTOMY COMPLICATION Status: Resolved Comment: Plan for reinsertion of trach today (2) Chronic respiratory failure with hypoxia Code(s): J96.11 - CHRONIC RESPIRATORY FAILURE WITH HYPOXIA Status: Chronic Comment: Tracheostomy reinsertion today, T-collar interim (3) UTI (urinary tract infection) Status: Acute Qualifiers: Urinary tract infection type: acute cystitis Comment: E. coli UTI, continue Cefepime, await final Ucx results (4) Obesity, morbid Code(s): E66.01 - MORBID (SEVERE) OBESITY DUE TO EXCESS CALORIES Status: Chronic - Plan continue antibiotics, PT/OT, geriatric social work professor, respiratory therapy, DVT proph w/ SCDs Stable currently -: Plan for trach reinsertion today -: Continue Levaquin pending final Ucx results -: Resume Lasix 80mg daily -: Likely back to [facility] in am * .
[2018-11-22] MEDS: Potassium Chloride 20 MEQ TAB PO SCH (22:12)
[2018-11-22] MEDS: Ferrous Sulfate 325 MG TAB PO SCH (22:12)
[2018-11-22] MEDS: Gabapentin 300 MG CAP PO SCH (22:12)
[2018-11-23] MEDS: Levothyroxine Sodium 112 MCG TAB PO SCH (06:42)
[2018-11-23] MEDS: Levothyroxine Sodium 25 MCG TAB PO SCH (06:42)
--- NOTE | 2018-11-23 08:24 | PRG ---
DATE OF SERVICE: 11/23/2018 SUBJECTIVE: A 63-year-old female status post removal of trach multiple times. Urine is growing E. coli. She is on a Ventimask or trach collar. OBJECTIVE: VITAL SIGNS: Saturations , temperature 98, blood pressure respiratory rate 18. CHEST: Decreased breath sounds. No wheezing. CARDIAC: Normal S1, S2. No gallops. ABDOMEN: No masses. IMPRESSION: Morbid obesity, sleep apnea, chronic obstructive pulmonary disease, permanent tracheostomy. PLAN: Trach is going to be replaced today. She can go back to the longterm thereafter. Job ID: [id number]
[2018-11-23] MEDS: Sodium Chloride 0.9% 1,000 ML IV SCH ×2 (08:36→15:35)
[2018-11-23] MEDS: Aspirin Chewable 81 MG TAB PO SCH (08:37)
[2018-11-23] MEDS: Furosemide 40 MG TAB PO SCH (08:38)
[2018-11-23] MEDS: Gabapentin 300 MG CAP PO SCH ×2 (08:38→20:21)
[2018-11-23] MEDS: Spironolactone 25 MG TAB PO SCH (08:38)
[2018-11-23] MEDS: Ferrous Sulfate 325 MG TAB PO SCH ×2 (08:38→20:21)
[2018-11-23] MEDS: Potassium Chloride 20 MEQ TAB PO SCH ×2 (08:38→20:21)
[2018-11-23] MEDS: guaiFENesin 200 MG TAB PO SCH ×2 (08:38→20:21)
[2018-11-23] MEDS: Famotidine/PF 20 mg/2ml Vial SLOW IVP SCH ×2 (08:38→20:21)
[2018-11-23] MEDS: Enoxaparin Sodium 40 MG/0.4 ML SYRINGE SC SCH (08:39)
[2018-11-23] MEDS ORDERED: Non-Formulary Item 1 EACH (Levothyroxine Sodium [Levothyroxine Sodium] 137 MCG) PO SCH (09:00)
--- NOTE | 2018-11-23 11:37 | PDOC.PN ---
- Subjective Encounter Start Date: 11/23/18 Encounter Start Time: 11:30 Subjective: f/u for dislodged tracheostomy with plans for reinsertion today. -: c/o of pain in neck but tolerating T-collar. Some oral pain on R-side -: of tongue. - Objective MAR Reviewed: Yes Vital Signs & Weight: Vital Signs (12 hours) Temp Pulse Ox 11/23/18 10:30 98.1 F 11/23/18 08:00 98 11/23/18 07:00 98.2 F 11/23/18 03:40 98.3 F 11/22/18 23:44 98.2 F Weight Weight 280 lb 12.8 oz Most Recent Monitor Data Heart Rate from ECG 58 NIBP 113/65 NIBP BP-Mean 81 Respiration from ECG 17 SpO2 98 I&O: 11/22/18 11/23/18 11/24/18 06:59 06:59 06:59 Intake Total 300 1235 Output Total 800 200 Balance -500 1035 Result Diagrams: 11/22/18 06:52 Additional Labs: Accuchecks 11/23/18 11/23/18 10:20 05:59 POC Glucose 62 L 67 L Microbiology 11/21/18 16:08 Urine Straight Catheter Urine Culture - Preliminary Presumptive Escherichia coli Gram Negative Erich 11/21/18 16:08 Urine Straight Catheter Urine Culture - Preliminary Presumptive Escherichia coli EKG Reviewed by me: Yes (Tele - A-fib in 70's) Phys Exam - Physical Examination Constitutional: NAD mild erythema on R buccal margin of tongue HEENT: PERRLA, sclera anicteric T-collar in place Neck: no nodes, no JVD, supple, full ROM diminished in bases S1, S2 Cardiovascular: no significant murmur, no rub, gallop, irregular PEG site intact, no discharge Obese Gastrointestinal: soft, non-tender, no distention, positive bowel sounds Musculoskeletal: pulses present, edema present Neurological: moves all 4 limbs Psychiatric: A&O x 3 Skin: normal turgor, cap refill <2 seconds Dx/Plan (1) Tracheostomy complication Code(s): J95.00 - UNSPECIFIED TRACHEOSTOMY COMPLICATION Status: Resolved Comment: Plan for reinsertion of trach today, will monitor in IMCU post- insertion (2) Chronic respiratory failure with hypoxia Code(s): J96.11 - CHRONIC RESPIRATORY FAILURE WITH HYPOXIA Status: Chronic Comment: Tracheostomy reinsertion today, T-collar interim (3) UTI (urinary tract infection) Status: Acute Qualifiers: Urinary tract infection type: acute cystitis Comment: E. coli UTI, Rocephin 2gm IV daily (4) Obesity, morbid Code(s): E66.01 - MORBID (SEVERE) OBESITY DUE TO EXCESS CALORIES Status: Chronic - Plan continue antibiotics, adoption social worker, respiratory therapy, DVT proph w/SCDs Stable currently -: Rocephin 2gm IV daily -: Plan for tracheostomy re-insertion today -: Peridex oral rinse -: Likely home in am * .
[2018-11-23] MEDS ORDERED: Fentanyl 100 MCG/2 ML VIAL ONE (11:52)
[2018-11-23] MEDS ORDERED: Midazolam HCl 2 mg/2 ml Vial ONE (11:52)
[2018-11-23] MEDS ORDERED: Lidocaine 2% PF 5 ML VIAL ONE (11:54)
[2018-11-23] MEDS ORDERED: Bupivacaine HCl 0.5%/Epinephrine 1:200,000/PF 30 ml Vial ONE (11:54)
[2018-11-23] MEDS ORDERED: cefTRIAXone\\ROCEPHIN 2 GM in Sodium Chloride 0.9% 100 ML IVPB SCH (12:00)
[2018-11-23] MEDS ORDERED: Morphine 2 MG/ML SYRINGE SLOW IVP PRN (13:50)
[2018-11-23] MEDS ORDERED: Morphine 4 MG/ML VIAL SLOW IVP PRN (13:50)
[2018-11-23] MEDS ORDERED: Acetaminophen 1,000 MG in Premix Bag 1 BAG IVPB PRN (13:50)
[2018-11-23] MEDS ORDERED: Ketorolac Tromethamine 30 MG/ML VIAL IVP PRN (13:50)
[2018-11-23] MEDS ORDERED: traMADol HCl 50 MG TAB PER TUBE PRN ×2 (13:50)
[2018-11-23] MEDS ORDERED: Acetaminophen 500 MG TAB PER TUBE PRN (13:50)
[2018-11-23] MEDS ORDERED: Rocuronium Bromide 10 MG/ML (10ML VIAL) ONE (16:03)
[2018-11-23] MEDS ORDERED: PHENYLEPHRINE-NS 100 MCG/ML 10 ML SYRINGE ONE (16:03)
[2018-11-23] MEDS ORDERED: Ondansetron PF 4 MG/2 ML Vial ONE (16:03)
[2018-11-23] MEDS ORDERED: PROPOFOL 200 MG/20 ML VIAL ONE (16:03)
[2018-11-23] MEDS ORDERED: Glycopyrrolate 0.2 MG/ML 5 ML SYRINGE ONE (16:03)
[2018-11-23] MEDS ORDERED: Lidocaine 1% PF 5 ML VIAL ONE (16:03)
[2018-11-23] MEDS ORDERED: ePHEDrine 50 MG/ML VIAL ONE (16:03)
[2018-11-23] MEDS: Chlorhexidine Gluconate 15 ML UDCUP SSP SCH (20:21)
[2018-11-23] MEDS ORDERED: Dextrose 50% Abboject 50 ML SYRINGE SLOW IVP PRN (21:33)
[2018-11-23] MEDS ORDERED: Dextrose 5% in Water 1,000 ML IV PRN (21:33)
[2018-11-24] MEDS: Sodium Chloride 0.9% 1,000 ML IV SCH ×3 (03:50→23:00)
[2018-11-24] MEDS: Levothyroxine Sodium 112 MCG TAB PO SCH (05:08)
[2018-11-24] MEDS: Levothyroxine Sodium 25 MCG TAB PO SCH (05:08)
--- NOTE | 2018-11-24 09:51 | PRG ---
DATE OF SERVICE: SUBJECTIVE: She is a morbidly obese female. Trach was replaced yesterday. Back in the ICU on 28%, sats 100%. Blood sugar was low yesterday. She was given D50. OBJECTIVE: VITAL SIGNS: Pulse is now 76, blood pressure _132\86 respirations 18, and afebrile. CHEST: Decreased breath sounds. No wheezing. CARDIAC: Normal S1, S2. No gallops. ABDOMEN: No masses. LABORATORY DATA: Urine is growing E coli, more than likely this is colonization. White blood count has been normal. IMPRESSION: Obstructive sleep apnea, chronic obstructive pulmonary disease, permanent trach, severe deconditioning, morbid obesity. PLAN: Restart nutrition. She can be transferred back to the long term any time. Job ID: [id number] MTDD
[2018-11-24] MEDS: Furosemide 40 MG TAB PO SCH (09:58)
[2018-11-24] MEDS: Famotidine/PF 20 mg/2ml Vial SLOW IVP SCH ×2 (09:58→20:45)
[2018-11-24] MEDS: Gabapentin 300 MG CAP PO SCH ×2 (09:58→20:45)
[2018-11-24] MEDS: Spironolactone 25 MG TAB PO SCH (09:58)
[2018-11-24] MEDS: guaiFENesin 200 MG TAB PO SCH ×2 (09:58→20:45)
[2018-11-24] MEDS: Aspirin Chewable 81 MG TAB PO SCH (09:58)
[2018-11-24] MEDS: Ferrous Sulfate 325 MG TAB PO SCH ×2 (09:59→20:46)
[2018-11-24] MEDS: Potassium Chloride 20 MEQ TAB PO SCH ×2 (09:59→20:45)
[2018-11-24] MEDS: Enoxaparin Sodium 40 MG/0.4 ML SYRINGE SC SCH (09:59)
[2018-11-24] MEDS: Chlorhexidine Gluconate 15 ML UDCUP SSP SCH ×2 (10:00→20:45)
[2018-11-24] MEDS: MEROPENEM 1 GM/50 ML 1 GM in Premix Bag 1 BAG IVPB SCH ×2 (10:47→18:18)
--- NOTE | 2018-11-24 12:06 | OP ---
DATE OF PROCEDURE: 11/23/2018 PREOPERATIVE DIAGNOSES: Morbid obesity, adult hypoventilation syndrome secondary to morbid obesity and sleep apnea, dislodged tracheostomy, tracheostomy malfunction. POSTOPERATIVE DIAGNOSES: Morbid obesity, adult hypoventilation syndrome secondary to morbid obesity and sleep apnea, dislodged tracheostomy, tracheostomy malfunction. PROCEDURE PERFORMED: Revision of tracheostomy. ANESTHESIA: General, local 0.5% Marcaine with epinephrine 10 mL. ESTIMATED BLOOD LOSS: Less than 5. DESCRIPTION OF PROCEDURE: The patient was taken to the operating room, where under general anesthesia, endotracheal intubation, neck and chest were prepared with ChloraPrep and draped in routine fashion. Incision was made through the old tracheostomy site, where there was a pinhole opening into the trachea. This was enlarged sharply using cautery for hemostasis. Once this was a large adequately using cautery and sharp dissection, the endotracheal tube was withdrawn under direct visualization and a new 8 Shiley low-pressure cuff tracheostomy tube applied. The patient tolerated the procedure well without problems. Sterile dressing was applied. Tracheostomy appliance secured with 3-0 Prolene. The patient tolerated the procedure well. Job ID: [id number]
[2018-11-24 12:32] VITALS: BMI 49.7
--- NOTE | 2018-11-24 14:11 | PRG ---
DATE OF SERVICE: Ms. Springer is doing well today. She had ordered to resume her tube feedings postoperative yesterday, but that was not done. She suffered a hypoglycemic episode last night. The patient had tracheostomy revision yesterday for dislodged trach. She is doing well today. Her dressings are dry. At this point, I will see her as needed. They can advance her diet orally and supplement tube feedings as necessary, apparently that is what is being done at the long-term. She may not need tube feedings at this point and only use her feeding tube for meds. I will see her as needed. The patient can be up in a chair. She can be transferred to the floor at any time. She will be transferred to the long-term anytime. I will see her as needed. Job ID: [id number]
--- NOTE | 2018-11-24 14:13 | PDOC.PN ---
- Subjective Encounter Start Date: 11/24/18 Encounter Start Time: 13:25 Subjective: f/u for tracheostomy revision POD #1. Tolerating new trach and -: maintaining O2 sats with T-collar @ 28% FIO2. Nursing reports several -: episodes of asymptomatic hypoglycemia now resolved. - Objective MAR Reviewed: Yes Vital Signs & Weight: Vital Signs (12 hours) Temp Pulse Ox 11/24/18 12:00 98.4 F 11/24/18 08:00 98.2 F 99 11/24/18 07:00 100 11/24/18 04:00 97.8 F 11/24/18 03:09 100 Weight Admit Weight 280 lb Weight 280 lb 12.8 oz Most Recent Monitor Data Heart Rate from ECG 57 NIBP 105/61 NIBP BP-Mean 75 Respiration from ECG 15 SpO2 100 I&O: 11/23/18 11/24/18 11/25/18 06:59 06:59 06:59 Intake Total 1235 2458 624 Output Total 200 3600 900 Balance 1035 -1142 -276 Result Diagrams: 11/22/18 06:52 Additional Labs: Accuchecks 11/24/18 11/24/18 11/24/18 11:42 08:01 04:54 POC Glucose 75 71 61 L 11/23/18 11/23/18 11/23/18 22:41 21:20 17:00 POC Glucose 81 64 L 63 L Microbiology 11/21/18 16:08 Urine Straight Catheter Urine Culture - Preliminary Presumptive Escherichia coli Gram Negative Erich 11/21/18 16:08 Urine Straight Catheter Urine Culture - Preliminary Presumptive Escherichia coli EKG Reviewed by me: Yes (Tele - A-fib) Phys Exam - Physical Examination sleepy, opens eyes to name and nods to questions HEENT: PERRLA, sclera anicteric, oral pharynx no lesions +trach in place with T-collar Neck: no nodes, no JVD, full ROM diminished in bases Respiratory: no wheezing, no rales, no rhonchi, clear to auscultation bilateral S1, S2 Cardiovascular: no significant murmur, no rub, gallop, irregular obese Gastrointestinal: soft, non-tender, no distention, positive bowel sounds Musculoskeletal: no edema, pulses present Neurological: normal sensation, moves all 4 limbs Psychiatric: A&O x 3 Skin: normal turgor, cap refill <2 seconds Dx/Plan (1) Tracheostomy complication Code(s): J95.00 - UNSPECIFIED TRACHEOSTOMY COMPLICATION Status: Acute Comment: s/p revision of tracheostomy with new trach placed #8 Shiley low- pressure cuff (2) Chronic respiratory failure with hypoxia Code(s): J96.11 - CHRONIC RESPIRATORY FAILURE WITH HYPOXIA Status: Chronic Comment: Tracheostomy revision, T-collar (3) UTI (urinary tract infection) Status: Acute Qualifiers: Urinary tract infection type: acute cystitis Comment: E. coli UTI, resistant to cephalosporins, start Meropenem 1gm IV q8h (4) Obesity, morbid Code(s): E66.01 - MORBID (SEVERE) OBESITY DUE TO EXCESS CALORIES Status: Chronic - Plan continue antibiotics, PT/OT, social science analyst, respiratory therapy, DVT proph w/ SCDs Stable currently -: Resume mech soft diet and monitor intake -: Pain control -: OOB with PT -: Likely back to SNF in am * .
[2018-11-25] MEDS: MEROPENEM 1 GM/50 ML 1 GM in Premix Bag 1 BAG IVPB SCH ×2 (02:48→11:14)
[2018-11-25] MEDS: Levothyroxine Sodium 25 MCG TAB PO SCH (06:01)
[2018-11-25] MEDS: Levothyroxine Sodium 112 MCG TAB PO SCH (06:02)
[2018-11-25] MEDS: Chlorhexidine Gluconate 15 ML UDCUP SSP SCH (09:06)
[2018-11-25] MEDS: guaiFENesin 200 MG TAB PO SCH (09:07)
[2018-11-25] MEDS: Sodium Chloride 0.9% 1,000 ML IV SCH (09:07)
[2018-11-25] MEDS: Ferrous Sulfate 325 MG TAB PO SCH (09:07)
[2018-11-25] MEDS: Potassium Chloride 20 MEQ TAB PO SCH (09:07)
[2018-11-25] MEDS: Gabapentin 300 MG CAP PO SCH (09:08)
[2018-11-25] MEDS: Furosemide 40 MG TAB PO SCH (09:08)
[2018-11-25] MEDS: Aspirin Chewable 81 MG TAB PO SCH (09:08)
[2018-11-25] MEDS: Famotidine/PF 20 mg/2ml Vial SLOW IVP SCH (09:08)
[2018-11-25] MEDS: Spironolactone 25 MG TAB PO SCH (09:08)
[2018-11-25] MEDS: Enoxaparin Sodium 40 MG/0.4 ML SYRINGE SC SCH (09:09)
--- NOTE | 2018-11-25 09:20 | PRG ---
DATE OF SERVICE: 11/25/2018 SUBJECTIVE: Love Springer is status post trach, #8 cuffed. OBJECTIVE: GENERAL: No distress. VITAL SIGNS: Temperature 98, pulse 56, respiratory rate 16, saturations are 95% _, blood pressure _120\74 CHEST: Decreased breath sounds. No wheezing. CARDIAC: Normal S1, S2. No gallops. ABDOMEN: No masses. ASSESSMENT AND PLAN: Urinary tract infection, as mentioned before is more than likely is colonization. I will switch over to nitrofurantoin for a week. Transfer back to the alf. Supportive care, PT. Job ID: [id number] MTDD
[2018-11-25 18:02] VITALS: BP 110/66; TEMP 98.1
--- NOTE | 2018-11-26 01:53 | DIS ---
DATE OF ADMISSION: 11/21/2018 DATE OF DISCHARGE: 11/25/2018 DISCHARGE DIAGNOSES: 1. Tracheostomy dislodgement, status post revision with 8 Shiley low-pressure cuff. 2. Chronic hypoxic respiratory failure with tracheostomy. 3. Urinary tract infection with Escherichia coli. 4. Morbid obesity. 5. Deconditioning. CONSULTATIONS: 1. Dr. Brown with Pulmonology Critical Care Service. 2. Dr. Jolley with General Surgery Service. PERTINENT LAB AND X-RAY FINDINGS: Basic metabolic profile within normal limits. Urine culture dated 11/21/2018, showed greater than 100,000 colonies of E coli sensitive to Macrobid. Portable chest x-ray dated 11/22/2018, showed mild cardiomegaly with atelectasis in the bibasilar distribution. HOSPITAL COURSE: The patient was initially admitted after presenting with dislodged tracheostomy tube. The patient with chronic tracheostomy status in the context of chronic hypoxic respiratory failure and morbid obesity. The patient was evaluated by the General Surgery Service with recommendations to undergo revision and replacement of current tracheostomy tube. The patient underwent placement of 8 Shiley low-pressure cuff tracheostomy tube on 11/23/2018 without complication. The patient was placed on T-collar with oxygen supplementation at 28% FiO2, tolerating without difficulty. The patient was monitored in the critical care unit without further decompensation and tolerating the tracheostomy revision. The patient did receive antibiotic therapy with meropenem after urinary tract infection was noted with E coli on urine culture sampling. The patient remained clinically stable, receiving general conservative management. I have examined the patient at the time of discharge and discussed followup instructions. The patient overall clinically stable and ready for discharge on 11/25/2018. DISCHARGE MEDICATIONS: 1. Enteric-coated aspirin 81 mg p.o. daily. 2. Ferrous sulfate 325 mg p.o. b.i.d. 3. Lasix 80 mg p.o. daily. 4. Levothyroxine 137 mcg p.o. daily. 5. Metolazone 5 mg p.o. daily p.r.n. 6. Nystatin powder one application topically b.i.d. p.r.n. 7. Protonix 40 mg p.o. daily. 8. K-Dur 20 mEq p.o. b.i.d. 9. Spironolactone 12.5 mg p.o. q.a.m. 10. Tramadol 50 mg p.o. q.6 hours p.r.n. 11. Peridex oral rinse 15 mL swish and spit b.i.d. until 11/28/2018. 12. Gabapentin 300 mg p.o. b.i.d. 13. Macrobid 100 mg p.o. b.i.d. until 11/30/2018. FOLLOWUP: The patient may follow up with Dr. Saenz at [facility]. CONDITION ON DISCHARGE: Guarded. ACTIVITY: Ad-gavin. DIET: ADA. CODE STATUS: Full. DISPOSITION: Discharged to [facility], 11/25/2018. TIME SPENT: Total time preparing and coordinating discharge, 33 minutes. Job ID: [id number]
== END 2018-11-25 16:43 | DRG 167 ==
LOC: ERS 14:52 → IMCU/EMU 19:37 → OBSVTOIN 19:37 → INTOOBSV 19:37 → CCU 11-23 13:31 → T4-A 11-24 23:02
PROVIDERS: ADMIT Internal Medicine; ATTEND Internal Medicine
PROC: 0BW10FZ Revision of Tracheostomy Device in Trachea, Open Approach (ICD-10-PCS; principal; 2018-11-23)
DX: J95.03 Malfunction of tracheostomy stoma (principal); I50.32 Chronic diastolic (congestive) heart failure; J96.11 Chronic respiratory failure with hypoxia; J44.1 Chronic obstructive pulmonary disease with (acute) exacerbation; N30.00 Acute cystitis without hematuria; E66.2 Morbid (severe) obesity with alveolar hypoventilation; Z68.42 Body mass index [BMI] 45.0-49.9, adult; I48.0 Paroxysmal atrial fibrillation; E03.9 Hypothyroidism, unspecified; E78.5 Hyperlipidemia, unspecified; I11.0 Hypertensive heart disease with heart failure; E16.2 Hypoglycemia, unspecified; B96.20 Unspecified Escherichia coli [E. coli] as the cause of diseases classified elsewhere; F32.9 Major depressive disorder, single episode, unspecified; I87.8 Other specified disorders of veins; Z90.49 Acquired absence of other specified parts of digestive tract; Z93.1 Gastrostomy status; Z88.0 Allergy status to penicillin; Z88.1 Allergy status to other antibiotic agents; Z99.81 Dependence on supplemental oxygen; Z79.899 Other long term (current) drug therapy; Z79.82 Long term (current) use of aspirin
CPT/HCPCS: 36415; 36416; 51701; 71045; 80048; 81003; 81015; 87077; 87086; 87186; 94002; 94640; 96372; A4353; J0670; J0696; J1650; J2001; J2185; J2250; J2270; J2405; J2704; J3010; J3490; S0028

== ENCOUNTER 2018-12-30 13:41 | Emergency (ER) | payer OTHER ==
[2018-12-30 14:42] LABS: Actual Bicarbonate (HCO3a) 32.2 mEq/L (22-28); Analyzer IN Cardio ER; Calcium, Ionized 1.11 mmol/L (1.12-1.30); Carboxyhemoglobin (COHb) 0.1 gm% (0.0-3.0); Hemoglobin (Hb) 12.4 g/dL (12.0-16.0); O2 Tension (PaO2) 92.7 mmHg (> 80.0); Potassium - ABG Lab 3.52 mmol/L (3.70-5.30); Puncture Site RRA; pH, Arterial 7.49 (7.35-7.45)
--- NOTE | 2018-12-30 14:43 | RAD ---
RADIOGRAPH CHEST 1 VIEW: DATE: 12/30/2018 TIME: 2:37 PM HISTORY: 63-year-old female with dyspnea COMPARISON: 11/22/2018 FINDINGS: Prominent interstitial markings, especially at lower lung zones, somewhat greater than on prior study . No gross consolidation. No cardiomegaly. Tracheostomy tube has been replaced. No pneumothorax. IMPRESSION: 1. Interval placement of tracheostomy tube. 2. Prominent interstitial markings.
[2018-12-30] MEDS ORDERED: Lorazepam 2 MG/ML VIAL ONE (14:52)
== END 2018-12-30 19:00 ==
LOC: ERS 13:41
DX: F41.9 Anxiety disorder, unspecified (principal); D64.9 Anemia, unspecified; E78.5 Hyperlipidemia, unspecified; E11.9 Type 2 diabetes mellitus without complications; E03.9 Hypothyroidism, unspecified; E66.9 Obesity, unspecified; J44.9 Chronic obstructive pulmonary disease, unspecified; F32.9 Major depressive disorder, single episode, unspecified; Z87.891 Personal history of nicotine dependence; Z79.899 Other long term (current) drug therapy; Z79.82 Long term (current) use of aspirin
CPT/HCPCS: 71045; 82805; 93005; 94760; J2060

== ENCOUNTER 2019-02-06 19:48 | Emergency (ER) | payer OTHER | END 2019-02-06 21:30 | LOC: ERS 19:48 | DX: J95.03 Malfunction of tracheostomy stoma (principal); D64.9 Anemia, unspecified; E78.5 Hyperlipidemia, unspecified; E11.9 Type 2 diabetes mellitus without complications; E03.9 Hypothyroidism, unspecified; E66.9 Obesity, unspecified; F32.9 Major depressive disorder, single episode, unspecified; Z87.891 Personal history of nicotine dependence; Z79.899 Other long term (current) drug therapy; Z79.82 Long term (current) use of aspirin | CPT/HCPCS: 99283 ==

== ENCOUNTER 2019-02-12 10:46 | Emergency (ER) | payer OTHER | END 2019-02-12 12:57 | LOC: ERS 10:46 | DX: J95.03 Malfunction of tracheostomy stoma (principal); D64.9 Anemia, unspecified; E78.5 Hyperlipidemia, unspecified; E11.9 Type 2 diabetes mellitus without complications; E03.9 Hypothyroidism, unspecified; E66.9 Obesity, unspecified; F32.9 Major depressive disorder, single episode, unspecified; J44.9 Chronic obstructive pulmonary disease, unspecified; Z87.891 Personal history of nicotine dependence; Z79.82 Long term (current) use of aspirin; Z79.899 Other long term (current) drug therapy | CPT/HCPCS: 99283 ==

== ENCOUNTER 2019-05-09 21:34 | Emergency (ER) | payer OTHER ==
--- NOTE | 2019-05-09 22:20 | RAD ---
XR Chest 1 View Portable History: Cough Comparison: Radiograph December 30, 2018 Findings: Lungs are hypoinflated. Mild edema. Small effusions. No pneumothorax. Tracheostomy tube tip sits at the level of the clavicles in good position. Impression: Mild pulmonary edema and small effusions.
[2019-05-09] MEDS ORDERED: Furosemide 40 MG TAB ONE (22:41)
[2019-05-09] MEDS ORDERED: Furosemide 40 MG/4 ML VIAL ONE ×2 (22:47→22:48)
== END 2019-05-10 | disposition home or self-care (01) ==
LOC: ERS 21:34
DX: Z43.0 Encounter for attention to tracheostomy (principal); Z46.89 Encounter for fitting and adjustment of other specified devices; D64.9 Anemia, unspecified; J44.1 Chronic obstructive pulmonary disease with (acute) exacerbation; E03.9 Hypothyroidism, unspecified; E66.9 Obesity, unspecified; F32.9 Major depressive disorder, single episode, unspecified; Z87.891 Personal history of nicotine dependence
CPT/HCPCS: 71045; 94640; 96374; J1940; J7620

== ENCOUNTER 2019-05-18 21:12 | Emergency (ER) | payer OTHER | END 2019-05-18 22:44 | LOC: ERS 21:12 | DX: J95.03 Malfunction of tracheostomy stoma (principal); D64.9 Anemia, unspecified; E78.5 Hyperlipidemia, unspecified; E78.00 Pure hypercholesterolemia, unspecified; E11.9 Type 2 diabetes mellitus without complications; E03.9 Hypothyroidism, unspecified; E66.9 Obesity, unspecified; J44.9 Chronic obstructive pulmonary disease, unspecified; F32.9 Major depressive disorder, single episode, unspecified; Z87.891 Personal history of nicotine dependence; Z79.82 Long term (current) use of aspirin; Z79.899 Other long term (current) drug therapy | CPT/HCPCS: 31502 ==

== ENCOUNTER 2019-05-29 05:01 | Inpatient (IN) | payer OTHER ==
[2019-05-29 06:01] LABS: Hemoglobin 12.5 g/dL (12.0-16.0); Mean Corpuscular HGB CONC 31.9 g/dL (32.0-36.0); RBC Distribution Width 15.4 % (11.5-14.5); Red Blood Cell (RBC) Count 3.89 mill/uL (4.20-5.40); White Blood Cell (WBC) Count 6.4 thou/uL (4.8-10.8)
[2019-05-29 06:17] LABS: ALT (SGPT) 17 U/L (8-55); AST (SGOT) 50 U/L (5-34); Albumin 2.8 g/dL (3.4-4.8); Alkaline Phosphatase 149 U/L (40-110); Anion Gap 11 mmol/L (10-20); BUN (Urea Nitrogen) 26 mg/dL (9.8-20.1); Bilirubin, Total 1.6 mg/dL (0.2-1.2); Calc. Creatinine Clearance 0 mL/min (70-130); Calcium 8.6 mg/dL (7.8-10.44); Carbon Dioxide 29 mmol/L (23-31); Chloride 104 mmol/L (98-107); Estimated GFR-MDRD 46; Globulin 4.8 g/dL (2.4-3.5); Glucose 91 mg/dL (80-115); Magnesium 1.8 mg/dL (1.6-2.6); Potassium 3.8 mmol/L (3.5-5.1); Protein, Total 7.6 g/dL (6.0-8.3); Sodium 140 mmol/L (136-145)
[2019-05-29 06:25] LABS: #Basophils 0.1 thou/uL (0.0-0.2); #Eosinphils 0.2 thou/uL (0.0-0.7); #Lymphocytes 1.8 thou/uL (1.20-3.40); #Monocytes 0.8 thou/uL (0.11-0.59); #Neutrophils 3.4 thou/uL (1.40-6.50); %Basophils 1.1 % (0.0-1.0); %Eosinophils 3.8 % (0.0-10.0); %Lymphocytes 28.8 % (21.0-51.0); %Monocytes 13.2 % (0.0-10.0); MDiff Complete? YES; Platelet Count 115 thou/uL (130-400); Platelet Morphology Comment Appears Decreased; Target Cells SLIGHT = 2-5 cells (100X) (0-1/hpf)
[2019-05-29 06:26] LABS: Bacteria/HPF 4+ HPF (None Seen); Bilirubin Negative (Negative); Blood, Urine 2+ (Negative); Clarity Extra Turbid (Clear); Glucose, Urine (Dipstick) Normal (Negative); Leukocyte 500 Leu/uL (Negative); Nitrite 2+ (Negative); Protein, Urine (Dipstick) 70 mg/dL (Neg-Trace); Renal Epithelial 0-3 HPF (None Seen); Urobilinogen 3 mg/dL (Less than 2); WBC/HPF Greater than 50 HPF (0-3)
[2019-05-29 06:39] LABS: CKMB 2.3 ng/mL (0-6.6)
[2019-05-29] MEDS ORDERED: MEROPENEM 1 GM/50 ML 1 GM in Premix Bag 1 BAG IVPB SCH (07:00)
--- NOTE | 2019-05-29 07:38 | CT ---
PRELIMINARY REPORT/[facility]/EMERGENCY AFTER HOURS PROCEDURE PROCEDURE INFORMATION: Exam: CT Head Without Contrast Exam date and time: 05/29/2019 6:26 AM Clinical history: 64 years old, female; Dizziness; Additional info: F64 presents to ED for lethargy. PT is oriented x3. PT reports she is having difficulty breathing and needs air. PT also C/O of headache and dizziness. PT denies fever. Nh staff reports some lethargy and difficulty with coordination that began yesterday. Hx- copd, chronic resp failure; No HX of blood clots; Takes baby aspirin, unsure if she is on blood thinners TECHNIQUE: Imaging protocol: Computed tomography of the head without contrast. COMPARISON: No relevant prior studies available. FINDINGS: Brain: Exam is degraded by motion artifact. No hemorrhage. Unremarkable white matter. No mass effect. Ventricles: No ventriculomegaly. Bones/joints: No acute fracture. Sinuses: Visualized sinuses are unremarkable. No fluid levels. Mastoid air cells: Visualized mastoid air cells are well aerated. Soft tissues: Unremarkable. IMPRESSION: No acute intracranial abnormality. Thank you for allowing us to participate in the care of your patient. Dictated and Authenticated by: Kalie Chow MD 05/29/2019 6:41 AM Central Time ([place] & [place]) FINAL REPORT HEAD CT WITHOUT CONTRAST: DATE: 05/29/2019 COMPARISON: 09/29/2018 HISTORY: Altered mental status, lethargy. FINDINGS: I agree with the preliminary report. The imaged paranasal sinuses and mastoid air cells samreen ear unremarkable. No acute osseous abnormality. No intracranial hemorrhage, midline shift, mass effect, or ventricular enlargement. IMPRESSION: No acute findings. Code QA Transcribed Date/Time: 05/29/2019 8:03 AM
--- NOTE | 2019-05-29 08:37 | RAD ---
FRONTAL VIEW CHEST: INDICATIONS: AMS. FINDINGS: There is enlargement of the pulmonary vasculature as well as prominence of the pulmonary interstitium bilaterally. The cardiac silhouette and mediastinal structures remain prominent. Tracheostomy is aga in seen. Bibasilar patchy densities may relate to a component of mild pleural fluid with adjacent cameron ma or atelectasis. No lobar consolidation otherwise depicted. IMPRESSION: Findings favor decompensated CHF with pulmonary edema. Recommend followup to resolution. POS: [facility]
--- NOTE | 2019-05-29 09:02 | CT ---
PRELIMINARY REPORT/[facility]/EMERGENCY AFTER HOURS PROCEDURE: PROCEDURE INFORMATION: Exam: CT Angiography Chest With Contrast Exam date and time: 05/29/2019 6:29 AM Clinical history: 64 years old, female; Shortness of breath; Additional info: F64 presents to ED for lethargy. PT is oriented x3. PT reports she is having difficulty breathing and needs air. PT also C/O of headache and dizziness. PT denies fever. Nh staff reports some lethargy and difficulty with coord ination that began yesterday. Hx- copd, chronic resp failure; No HX of blood clots; Takes baby aspiri n, unsure if she is on blood thinners TECHNIQUE: Imaging protocol: Computed tomographic angiography of the chest with intravenous contrast. 3D rendering: MIP reconstructed images were created and reviewed. Contrast material: ISOVUE; Contrast volume: 60 ml; Contrast route: IV; COMPARISON: No relevant prior studies available. FINDINGS: Pulmonary arteries: Exam is moderately degraded by motion artifact. Suboptimal evaluation of the pulm onary arteries due to poor enhancement on delayed contrast phase. No definitive central pulmonary emb inocente. Aorta: No aortic aneurysm. No aortic dissection. Lungs: Endotracheal tube tip is at the thoracic inlet. Interlobular septal thickening, pulmonary vasc ular engormenet, brochial wall thickening suggesting interstitial pulmonary edema. Nonspecific bibasi lar subsegmental opacities are present, likely represent subsegmental atelectasis, however superimposed airspace consolidation cannot be completely excluded. No masses. Pleural space: No pneumothorax. Possible trace pleural effusion. Heart: Coronary arteries calcifications are moderate. Moderate cardiomegaly predominantly involves t he left cardiac chambers. No pericardial effusion. Lymph nodes: No enlarged lymph nodes. Bones/joints: No acute fracture. Soft tissues: Unremarkable. The liver has a nodular contour and there is relative hypertrophy of the left lobe, compatible with c irrhosis. IMPRESSION: No definitive central pulmonary emboli. Endotracheal tube tip is at the thoracic inlet. Findings suggestive of interstitial pulmonary edema. Coronary arteries calcifications are moderate. Moderate cardiomegaly predominantly involves the left cardiac chambers. Findings compatible with cirrhosis. Thank you for allowing us to participate in the care of your patient. Dictated and Authenticated by: Kalie Chow MD 05/29/2019 7:00 AM Central Time ([place] & [place]) FINAL REPORT CT ANGIO CHEST PERFORMED WITH IV CONTRAST ENHANCEMENT WITH 3D RECONSTRUCTIONS: Date: 05/29/19 HISTORY: Shortness of breath. COMPARISON: 08/19/18. FINDINGS: There are atelectatic changes in the lung bases. Some slight ground-glass opacity of the lung perry suggest possibly some element of edema. No pleural effusions. No significant mediastinal or hilar adenopathy. Motion artifact and poor contrast bolus makes this basically a nondiagnostic study for pulmonary embo jessica. Coronary calcifications are seen. Liver shows a nodular cirrhotic contour. Gallbladder has been removed. IMPRESSION: 1. Essentially nondiagnostic examination for pulmonary embolus. 2. Atelectatic changes in the lung bases. Some mild ground-glass opacity could indicate some element of interstitial edema. 3. Coronary calcifications. 4. Cirrhotic liver. This report is in agreement with the preliminary report issued by [facility]. POS: OFF
[2019-05-29] MEDS ORDERED: Acetaminophen 325 MG TAB PO PRN (10:09)
[2019-05-29] MEDS ORDERED: Ondansetron PF 4 MG/2 ML Vial IVP PRN (10:09)
[2019-05-29] MEDS ORDERED: Bisacodyl 10 MG SUPP PR PRN (10:09)
[2019-05-29] MEDS ORDERED: Metoclopramide HCl 10 MG/2 ML VIAL IVP PRN (10:09)
[2019-05-29] MEDS ORDERED: hydrALAZINE 20 MG/ML VIAL SLOW IVP PRN (10:09)
[2019-05-29] MEDS ORDERED: Labetalol HCl 100 MG/20 ML VIAL SLOW IVP PRN (10:09)
[2019-05-29] MEDS ORDERED: Cepastat Lozenges 1 LOZ PO PRN (10:09)
[2019-05-29] MEDS ORDERED: Acetaminophen 650 MG Suppository PR PRN (10:09)
[2019-05-29] MEDS ORDERED: Artificial Tears 18 DROP/0.9 ML EA EYE PRN (10:09)
[2019-05-29] MEDS ORDERED: Sodium Chloride 0.65% Nasal 44 ML BOT EA NARE PRN (10:09)
[2019-05-29 11:02] LABS: Troponin I 0.044 ng/mL (< 0.028)
--- NOTE | 2019-05-29 11:28 | HP ---
PRIMARY CARE PHYSICIAN: Dr. Gilbert. REASON FOR ADMISSION: Altered mental status. HISTORY OF PRESENT ILLNESS: A 64-year-old female, who has underlying multiple medical problems including chronic respiratory failure from morbid obesity and obstructive sleep apnea. The patient lives at [facility]. She has already tracheostomy as well as PEG tube in place. As per report, the patient was more lethargic, more somnolent at [facility]. It was difficult to arouse and she was having difficulty with daily routine activity. Her coordination was not good. Her appetite was also reduced. Recently, she had conjunctivitis and she was given prescription for Cipro eyedrops. The patient is Cymro-speaking only and she has tracheostomy, so it is very difficult to get history from her. The patient reported shortness of breath, weakness, and lethargy. In emergency room, the patient had EKG, which showed low voltage QRS complex. Her routine blood test showed elevated D-dimer and that is why CT angiography was done, which was negative for PE, but it showed interstitial edema. Her chest x-ray was unremarkable and CT of brain was negative. Her urinalysis was also consistent with urinary tract infection. Her ammonia level is also elevated and her TSH is elevated and troponin is also elevated. The patient is requiring admission for encephalopathy and UTI. REVIEW OF SYSTEMS: CONSTITUTIONAL: Negative for weight loss or gain, ability to conduct usual activities. SKIN: Negative for rash, itching. EYES: Negative for double vision, pain. ENT/MOUTH: Negative for nose bleeding, neck stiffness, pain, tenderness. CARDIOVASCULAR: Negative for palpitations, dyspnea on exertion, orthopnea. RESPIRATORY: Negative for shortness of breath, wheezing, cough, hemoptysis, fever or night sweats. GASTROINTESTINAL: Negative for poor appetite, abdominal pain, heartburn, nausea, vomiting, constipation, or diarrhea. GENITOURINARY: Negative for urgency, frequency, dysuria, nocturia. MUSCULOSKELETAL: Negative for pain, swelling. NEUROLOGIC/PSYCHIATRIC: Negative for anxiety, depression. ALLERGY/IMMUNOLOGIC: Negative for skin rash, bleeding tendency. Please see my HPI for pertinent positive and negative. All other review of systems reviewed and negative except as mentioned in HPI. PAST MEDICAL HISTORY: Paroxysmal atrial fibrillation, morbid obesity, obstructive sleep apnea, chronic respiratory failure, hypothyroidism, hypertension, COPD, chronic tracheostomy status, chronic venous stasis, chronic diastolic heart failure stage C, dyslipidemia, chronic normocytic anemia, chronic physical deconditioning, PEG tube status, and cirrhosis of liver of unknown etiology. PAST SURGICAL HISTORY: Cholecystectomy, , tonsillectomy, tracheostomy, and PEG tube. PAST PSYCHIATRIC HISTORY: Anxiety and depression. SOCIAL HISTORY: The patient is from [facility]. No history of tobacco, alcohol, or illicit drug abuse. ALLERGIES: AMOXICILLIN AND PENICILLIN, BUT THE PATIENT IS TOLERATED MEROPENEM WITHOUT ANY PROBLEM. CURRENT HOME MEDICATIONS: As per [facility] record, the patient is on following medication: 1. Gabapentin 300 mg twice daily. 2. Aspirin 81 mg daily. 3. Lasix 80 mg daily. 4. Aldactone 12.5 mg daily. 5. Lexapro 10 mg daily. 6. Zoloft 100 mg daily. 7. Potassium chloride 20 mEq daily. 8. Metolazone 5 mg q.6 hourly p.r.n. 9. Simethicone q.4 hourly p.r.n. 10. Tylenol 650 mg q.6 hourly p.r.n. 11. MiraLAX 17 g per tube daily. 12. Xanax 0.5 mg three times daily p.r.n. 13. DuoNeb q.6 hourly. FAMILY HISTORY: No strong family history of premature coronary artery disease, stroke, or cancer, but positive for diabetes. EMERGENCY ROOM COURSE: The patient received meropenem, DuoNeb therapy x3, and IV fluid. PHYSICAL EXAMINATION: VITAL SIGNS: On arrival, blood pressure 141/89, pulse 70, respiratory rate 21, temperature 97.8, and saturation 92%. Weight 158 kg. GENERAL: The patient is currently alert, awake, arousable, follows simple commands, chronically ill. HEENT: Head; normocephalic and atraumatic. Eyes; pupils round, reactive to light. Conjunctiva is mildly erythematous. NECK: Tracheostomy in place. No meningeal signs of irritation. LUNGS: Coarse breath sounds, but no obvious rhonchi or rales. CARDIAC: S1 and S2 regular. No murmur. No gallop. No rub. ABDOMEN: Morbid obesity present. Left upper quadrant G-tube in place. No peritoneal sign. No suprapubic tenderness. EXTREMITIES: Chronic venous stasis changes. No edema. Good distal pulsation. NEUROLOGIC: Grossly nonfocal examination. She is moving all 4 limbs. No obvious asterixis. SIGNIFICANT LABORATORY DATA: EKG showing normal sinus rhythm, low-voltage QRS complex. CT angiography negative for PE, but showing interstitial edema. Chest x-ray negative. CT of brain, no acute intracranial process. CBC; WBC is 6.4, hemoglobin 12.5, platelet 115, MCV 100. D-dimer 1.95. BMP; sodium 140, potassium 3.8, , BUN 26, creatinine 1.18, glucose 91, calcium 8.6, lactic acid 1.3. LFT; AST 50, ALT 17, alkaline phosphatase 149, albumin 2.8. TSH 8.7. Troponin 0.043. Ammonia 97. BNP 97.2. Urinalysis suggestive of UTI. ASSESSMENT AND PLAN: Impression: 1. Acute encephalopathy due to multifactorial etiology including sepsis secondary to urinary tract infection as well as the patient has metabolic encephalopathy from hepatic encephalopathy given elevated ammonia and cirrhosis. Her TSH is also not well controlled and her troponin is elevated. She has abnormal LFT. The patient's CT of brain is negative and she does not have any focal neurological deficit. 2. Urinary tract infection. Based on previous culture result, the patient has multi-drug resistance urinary tract infection and that is why we will treat her with meropenem 1 g IV q.8 hourly and Florastor 250 mg p.o. daily. 3. Hepatic encephalopathy. We will continue with lactulose 20 g p.o. q.i.d. and repeat ammonia level. 4. Chronic respiratory failure with hypoxia. We will continue oxygen to maintain saturation above 90%. 5. Morbid obesity with obstructive sleep apnea, currently status post tracheostomy. The patient will need tracheostomy care. 6. PEG tube status. The patient will need all medication via PEG tube. Before oral intake, we will consider swallow evaluation. Otherwise, we will keep her n.p.o. We will resume tube feeding as tolerated. 7. Abnormal LFT, macrocytosis, thrombocytopenia, all related with underlying chronic liver disease with cirrhosis. 8. Hypothyroidism. We will resume Synthroid to 150 mcg daily. 9. Gastroesophageal reflux disease. We will continue with Pepcid 20 mg IV b.i.d. 10. Chronic kidney disease, stage 3. We will monitor renal function. We will hold on diuretic therapy. 11. Deep venous thrombosis prophylaxis. We will hold on Lovenox because of low platelet count. We will monitor and provide SCD. 12. Gastrointestinal prophylaxis. Pepcid 20 mg IV b.i.d. CODE STATUS: The patient is full code. The patient does not have any surrogate decision maker. DISPOSITION PLAN: Based on clinical course, we are expecting the patient's stay in hospital more than 2 midnights. Plan of care discussed with the patient in detail. Job ID: [id number]
[2019-05-29] MEDS ORDERED: ISOVUE-370 76%-LOCM 1 ML ONE (12:18)
[2019-05-29 13:58] LABS: Troponin I 0.031 ng/mL (< 0.028)
[2019-05-29 14:57] VITALS: BMI 48.4
[2019-05-29] MEDS: MEROPENEM 1 GM/50 ML 1 GM in Premix Bag 1 BAG IVPB SCH ×2 (15:27→21:00)
[2019-05-29] MEDS: Famotidine/PF 20 mg/2ml Vial SLOW IVP SCH (21:01)
[2019-05-29] MEDS: Nystatin Powder 15 GM BOT TOP SCH (21:04)
[2019-05-30 05:45] LABS: #Basophils 0.1 thou/uL (0.0-0.2); #Eosinphils 0.3 thou/uL (0.0-0.7); #Lymphocytes 1.7 thou/uL (1.20-3.40); #Monocytes 0.7 thou/uL (0.11-0.59); #Neutrophils 3.4 thou/uL (1.40-6.50); %Basophils 0.8 % (0.0-1.0); %Eosinophils 5.2 % (0.0-10.0); %Lymphocytes 26.8 % (21.0-51.0); %Monocytes 11.3 % (0.0-10.0); %Neutrophils 55.9 % (42.0-75.0); Hemoglobin 11.8 g/dL (12.0-16.0); Mean Corpuscular HGB CONC 31.2 g/dL (32.0-36.0); Mean Corpuscular Hemoglobin 31.6 pg (27.0-31.0); Mean Platelet Volume 9.3 fL (7.4-10.4); Platelet Count 101 thou/uL (130-400); RBC Distribution Width 15.6 % (11.5-14.5); Red Blood Cell (RBC) Count 3.74 mill/uL (4.20-5.40); White Blood Cell (WBC) Count 6.2 thou/uL (4.8-10.8)
[2019-05-30 05:51] LABS: ALT (SGPT) 23 U/L (8-55); AST (SGOT) 99 U/L (5-34); Albumin 2.6 g/dL (3.4-4.8); Alkaline Phosphatase 135 U/L (40-110); Anion Gap 13 mmol/L (10-20); BUN (Urea Nitrogen) 24 mg/dL (9.8-20.1); Bilirubin, Total 1.8 mg/dL (0.2-1.2); Calc. Creatinine Clearance 136 mL/min (70-130); Calcium 8.5 mg/dL (7.8-10.44); Carbon Dioxide 26 mmol/L (23-31); Chloride 109 mmol/L (98-107); Estimated GFR-MDRD 69; Globulin 4.5 g/dL (2.4-3.5); Glucose 100 mg/dL (80-115); Potassium 3.6 mmol/L (3.5-5.1); Protein, Total 7.1 g/dL (6.0-8.3); Sodium 144 mmol/L (136-145)
[2019-05-30] MEDS: Levothyroxine Sodium 100 MCG TAB PER TUBE SCH (06:00)
[2019-05-30] MEDS: MEROPENEM 1 GM/50 ML 1 GM in Premix Bag 1 BAG IVPB SCH ×3 (06:00→21:48)
[2019-05-30] MEDS: Acetaminophen 325 MG TAB PER TUBE PRN (06:07)
[2019-05-30] MEDS ORDERED: FLU VACC QS2019-20(6MOS UP)/PF 60 MCG/0.5 ML SYRINGE IM ONE (09:00)
[2019-05-30] MEDS: Saccharomyces boulardii 250 MG CAP PO SCH (09:19)
[2019-05-30] MEDS: Famotidine/PF 20 mg/2ml Vial SLOW IVP SCH ×2 (09:20→21:48)
[2019-05-30] MEDS: Nystatin Powder 15 GM BOT TOP SCH ×2 (09:20→21:49)
--- NOTE | 2019-05-30 10:49 | PDOC.HOSPP ---
- Subjective Encounter Date: 05/30/19 Encounter Time: 08:20 Subjective: Patient seen and examined. No new complaints. No overnight events - Objective Vital Signs & Weight: Vital Signs (12 hours) Temp Pulse Resp BP Pulse Ox 05/30/19 08:03 98.4 F 62 18 118/58 L 100 05/30/19 07:21 60 16 99 05/30/19 03:35 98.1 F 62 20 115/78 100 05/30/19 00:51 64 18 95 05/30/19 00:40 62 116/54 L 99 Weight Weight 273 lb 12.8 oz I&O: 05/29/19 05/30/19 05/31/19 06:59 06:59 06:59 Intake Total 680 Output Total 850 Balance -170 Result Diagrams: 05/30/19 04:43 05/30/19 04:43 Additional Labs: Accuchecks 05/29/19 16:24 POC Glucose 90 EKG Reviewed by me: Yes Hospitalist ROS - Review of Systems ROS unobtainable: due to mental status - Medication Medications: Active Medications Generic Name Dose Route Start Last Admin Trade Name Freq PRN Reason Stop Dose Admin Acetaminophen 650 mg 05/29/19 11:35 05/30/19 06:07 Tylenol PER TUBE 650 mg Q4H PRN Administration Headache/Fever/Mild Pain (1-3) Albuterol/Ipratropium 3 ml 05/29/19 13:00 05/30/19 07:21 Duoneb NEB 3 ml [id number] SAMIRA Administration Famotidine 20 mg 05/29/19 21:00 05/30/19 09:20 Pepcid SLOW IVP 20 mg Q12HR SAMIRA Administration Meropenem 1 gm/ Device 50 mls @ 200 mls/hr 05/29/19 14:00 05/30/19 06:00 IVPB 50 mls Q8HR SAMIRA Administration Lactulose 20 gm 05/29/19 13:00 05/30/19 09:20 Lactulose PER TUBE 20 gm QID SAMIRA Administration Levothyroxine Sodium 150 mcg 05/30/19 06:00 05/30/19 06:00 Synthroid PER TUBE 150 mcg 0600 SAMIRA Administration Nystatin 1 gm 05/29/19 21:00 05/30/19 09:20 Mycostatin Powder TOP 1 applic BID SAMIRA Administration Saccharomyces Boulardii 250 mg 05/30/19 09:00 05/30/19 09:19 Florastor PO 250 mg DAILY SAMIRA Administration Sodium Chloride 10 ml 05/29/19 21:00 05/30/19 09:22 Flush - Normal Saline IVF 10 ml Q12HR SAMIRA Administration - Exam General Appearance: NAD, awake alert Eye: PERRL, anicteric sclera ENT: normocephalic atraumatic, no oropharyngeal lesions ENT - other findings: trach+ Neck: supple, symmetric, no JVD Heart: RRR, no murmur, no gallops, no rubs Respiratory: CTAB, no wheezes, no rales, no ronchi Gastrointestinal: soft, non-tender, non-distended, normal bowel sounds Gastrointestinal - other findings: peg+ Extremities: no cyanosis, no clubbing, no edema Skin: normal turgor, no lesions Neurological: no focal deficits Musculoskeletal: normal tone, normal strength Psychiatric: normal affect, lethargic Hosp A/P (1) UTI (urinary tract infection) Status: Acute (2) Acute metabolic encephalopathy Code(s): G93.41 - METABOLIC ENCEPHALOPATHY Status: Acute (3) Hepatic encephalopathy Code(s): K72.90 - HEPATIC FAILURE, UNSPECIFIED WITHOUT COMA Status: Acute (4) Cirrhosis of liver Code(s): K74.60 - UNSPECIFIED CIRRHOSIS OF LIVER Status: Chronic Qualifiers: Ascites presence: unspecified (5) CKD (chronic kidney disease), stage II Code(s): N18.2 - CHRONIC KIDNEY DISEASE, STAGE 2 (MILD) Status: Chronic (6) Chronic respiratory failure with hypoxia Code(s): J96.11 - CHRONIC RESPIRATORY FAILURE WITH HYPOXIA Status: Chronic (7) Diabetic neuropathy Code(s): E11.40 - TYPE 2 DIABETES MELLITUS WITH DIABETIC NEUROPATHY, UNSP Status: Chronic Qualifiers: Diabetes mellitus type: type 2 (8) GERD (gastroesophageal reflux disease) Code(s): K21.9 - GASTRO-ESOPHAGEAL REFLUX DISEASE WITHOUT ESOPHAGITIS Status: Chronic (9) History of CVA (cerebrovascular accident) Code(s): Z86.73 - PRSNL HX OF TIA (TIA), AND CEREB INFRC W/O RESID DEFICITS Status: Chronic (10) Hyperlipemia Code(s): E78.5 - HYPERLIPIDEMIA, UNSPECIFIED Status: Chronic Qualifiers: (11) Hypertension Code(s): I10 - ESSENTIAL (PRIMARY) HYPERTENSION Status: Chronic Qualifiers: (12) KATE (obstructive sleep apnea) Code(s): G47.33 - OBSTRUCTIVE SLEEP APNEA (ADULT) (PEDIATRIC) Status: Chronic (13) Paroxysmal a-fib Code(s): I48.0 - PAROXYSMAL ATRIAL FIBRILLATION Status: Chronic (14) Portal hypertension Code(s): K76.6 - PORTAL HYPERTENSION Status: Chronic (15) Stasis dermatitis of both legs Code(s): I87.2 - VENOUS INSUFFICIENCY (CHRONIC) (PERIPHERAL) Status: Chronic (16) Thrombocytopenia Code(s): D69.6 - THROMBOCYTOPENIA, UNSPECIFIED Status: Chronic (17) Morbid obesity with BMI of 45.0-49.9, adult Code(s): E66.01 - MORBID (SEVERE) OBESITY DUE TO EXCESS CALORIES; Z68.42 - BODY MASS INDEX (BMI) 45.0-49.9, ADULT Status: Chronic (18) Severe muscle deconditioning Code(s): R29.898 - OTH SYMPTOMS AND SIGNS INVOLVING THE MUSCULOSKELETAL SYSTEM Status: Chronic (19) Chronic stage c diastolic heart failure Code(s): I50.32 - CHRONIC DIASTOLIC (CONGESTIVE) HEART FAILURE Status: Chronic (20) Hypothyroidism Code(s): E03.9 - HYPOTHYROIDISM, UNSPECIFIED Status: Chronic - Plan old records reviewed/req, continue antibiotics, respiratory therapy 05/30/19 continue meropenam, urine culture grew GNR, tracheostomy and PEg care,continue tube feeding check ammonia and now it is normal, reduce lactulose bid medication reviewed as above, symptomatic treatment
[2019-05-31] MEDS: MEROPENEM 1 GM/50 ML 1 GM in Premix Bag 1 BAG IVPB SCH ×3 (05:47→21:42)
[2019-05-31] MEDS: Levothyroxine Sodium 100 MCG TAB PER TUBE SCH (06:51)
[2019-05-31] MEDS: Famotidine/PF 20 mg/2ml Vial SLOW IVP SCH ×2 (09:31→20:01)
[2019-05-31] MEDS: Saccharomyces boulardii 250 MG CAP PO SCH (09:31)
[2019-05-31] MEDS: Nystatin Powder 15 GM BOT TOP SCH ×2 (09:32→20:01)
--- NOTE | 2019-05-31 10:13 | PDOC.HOSPP ---
- Subjective Encounter Date: 05/31/19 Encounter Time: 10:15 Subjective: sleepy, no complaints when aroused - Objective Vital Signs & Weight: Vital Signs (12 hours) Temp Pulse Resp BP Pulse Ox 05/31/19 07:52 98.2 F 61 20 125/61 97 05/31/19 07:18 60 16 98 05/31/19 04:00 97.8 F 65 20 107/55 L 96 05/31/19 00:59 70 18 99 05/31/19 00:00 65 18 117/60 96 Weight Admit Weight 273 lb 12.8 oz Weight 273 lb 12.8 oz I&O: 05/30/19 05/31/19 06/01/19 06:59 06:59 06:59 Intake Total 680 1410 30 Output Total 850 725 Balance -170 685 30 Result Diagrams: 05/30/19 04:43 05/30/19 04:43 Hospitalist ROS - Medication Medications: Active Medications Generic Name Dose Route Start Last Admin Trade Name Freq PRN Reason Stop Dose Admin Acetaminophen 650 mg 05/29/19 11:35 05/30/19 06:07 Tylenol PER TUBE 650 mg Q4H PRN Administration Headache/Fever/Mild Pain (1-3) Albuterol/Ipratropium 3 ml 05/29/19 13:00 05/31/19 07:18 Duoneb NEB 3 ml [id number] SAMIRA Administration Famotidine 20 mg 05/29/19 21:00 05/31/19 09:31 Pepcid SLOW IVP 20 mg Q12HR SAMIRA Administration Meropenem 1 gm/ Device 50 mls @ 200 mls/hr 05/29/19 14:00 05/31/19 05:47 IVPB 50 mls Q8HR SAMIRA Administration Lactulose 20 gm 05/30/19 21:00 05/31/19 09:31 Lactulose PER TUBE 20 gm BID SAMIRA Administration Levothyroxine Sodium 150 mcg 05/30/19 06:00 05/31/19 06:51 Synthroid PER TUBE 150 mcg 0600 SAMIRA Administration Nystatin 1 gm 05/29/19 21:00 05/31/19 09:32 Mycostatin Powder TOP 1 applic BID SAMIRA Administration Saccharomyces Boulardii 250 mg 05/30/19 09:00 05/31/19 09:31 Florastor PO 250 mg DAILY SAMIRA Administration Sodium Chloride 10 ml 05/29/19 21:00 05/31/19 09:32 Flush - Normal Saline IVF 10 ml Q12HR SAMIRA Administration - Exam ENT - other findings: trach Neck: no JVD Heart: RRR, no murmur Respiratory: CTAB Gastrointestinal: soft, normal bowel sounds Gastrointestinal - other findings: PEG Extremities: 1+ LE edema Hosp A/P (1) Hepatic encephalopathy Code(s): K72.90 - HEPATIC FAILURE, UNSPECIFIED WITHOUT COMA Status: Acute (2) UTI (urinary tract infection) Status: Acute Qualifiers: Urinary tract infection type: acute cystitis Hematuria presence: without hematuria Qualified Code(s): N30.00 - Acute cystitis without hematuria (3) Cirrhosis of liver Code(s): K74.60 - UNSPECIFIED CIRRHOSIS OF LIVER Status: Chronic Qualifiers: Ascites presence: unspecified (4) HTN (hypertension) Code(s): I10 - ESSENTIAL (PRIMARY) HYPERTENSION Status: Chronic Qualifiers: Hypertension type: essential hypertension Qualified Code(s): I10 - Essential (primary) hypertension (5) Hyperlipemia Code(s): E78.5 - HYPERLIPIDEMIA, UNSPECIFIED Status: Chronic Qualifiers: - Plan cont lactulose urine C&S- gram neg snehal- cont current antibx
[2019-05-31] MEDS: Acetaminophen 325 MG TAB PER TUBE PRN (20:07)
[2019-06-01] MEDS: Levothyroxine Sodium 100 MCG TAB PER TUBE SCH (05:31)
[2019-06-01] MEDS: MEROPENEM 1 GM/50 ML 1 GM in Premix Bag 1 BAG IVPB SCH ×3 (05:37→21:38)
[2019-06-01] MEDS: Famotidine/PF 20 mg/2ml Vial SLOW IVP SCH ×2 (08:36→21:35)
[2019-06-01] MEDS: Nystatin Powder 15 GM BOT TOP SCH ×2 (08:36→21:37)
[2019-06-01] MEDS: Saccharomyces boulardii 250 MG CAP PO SCH (08:36)
--- NOTE | 2019-06-01 13:39 | PDOC.HOSPP ---
- Subjective Encounter Date: 06/01/19 Encounter Time: 08:40 Subjective: Pt seen for followup re: UTI. Feels well, no complaints today. - Objective Vital Signs & Weight: Vital Signs (12 hours) Temp Pulse Resp BP Pulse Ox 06/01/19 12:00 97.8 F 63 20 117/73 95 06/01/19 07:09 97.9 F 61 18 107/68 96 06/01/19 06:29 58 L 18 94 L 06/01/19 04:00 97.6 F 57 L 20 119/82 96 Weight Admit Weight 273 lb 12.8 oz Weight 273 lb 12.8 oz I&O: 05/31/19 06/01/19 06/02/19 06:59 06:59 06:59 Intake Total 1410 954 Output Total 725 700 Balance 685 254 Result Diagrams: 05/30/19 04:43 05/30/19 04:43 Additional Labs: Labs and MARs reviewed by me Hospitalist ROS - Review of Systems Respiratory: denies: cough, dry, shortness of breath, hemoptysis, SOB with excertion, pleuritic pain, sputum, wheezing Cardiovascular: denies: chest pain, palpitations, orthopnea, paroxysmal noc. dyspnea, edema, light headedness - Medication Medications: Active Medications Generic Name Dose Route Start Last Admin Trade Name Freq PRN Reason Stop Dose Admin Acetaminophen 650 mg 05/29/19 11:35 05/31/19 20:07 Tylenol PER TUBE 650 mg Q4H PRN Administration Headache/Fever/Mild Pain (1-3) Albuterol/Ipratropium 3 ml 05/29/19 13:00 06/01/19 13:33 Duoneb NEB Not Given [id number] SAMIRA Famotidine 20 mg 05/29/19 21:00 06/01/19 08:36 Pepcid SLOW IVP 20 mg Q12HR SAMIRA Administration Meropenem 1 gm/ Device 50 mls @ 200 mls/hr 05/29/19 14:00 06/01/19 05:37 IVPB 50 mls Q8HR SAMIRA Administration Lactulose 20 gm 05/30/19 21:00 06/01/19 08:36 Lactulose PER TUBE 20 gm BID SAMIRA Administration Levothyroxine Sodium 150 mcg 05/30/19 06:00 06/01/19 05:31 Synthroid PER TUBE 150 mcg 0600 SAMIRA Administration Nystatin 1 gm 05/29/19 21:00 06/01/19 08:36 Mycostatin Powder TOP 1 applic BID SAMIRA Administration Saccharomyces Boulardii 250 mg 05/30/19 09:00 06/01/19 08:36 Florastor PO 250 mg DAILY SAMIRA Administration Sodium Chloride 10 ml 05/29/19 21:00 06/01/19 09:35 Flush - Normal Saline IVF Not Given Q12HR SAMIRA - Exam General - other findings: Morbid obesity Eye: anicteric sclera ENT: moist mucosa Neck - other findings: tracheostomy Heart: RRR Respiratory: CTAB Gastrointestinal: soft, distended Gastrointestinal - other findings: PEG tube Psychiatric: normal affect, normal behavior, A&O x 3 Hosp A/P (1) UTI (urinary tract infection) Status: Acute Qualifiers: Urinary tract infection type: acute cystitis Hematuria presence: without hematuria Qualified Code(s): N30.00 - Acute cystitis without hematuria (2) Cirrhosis of liver Code(s): K74.60 - UNSPECIFIED CIRRHOSIS OF LIVER Status: Chronic Qualifiers: Ascites presence: unspecified (3) Hypothyroidism Code(s): E03.9 - HYPOTHYROIDISM, UNSPECIFIED Status: Chronic (4) Morbid obesity with BMI of 45.0-49.9, adult Code(s): E66.01 - MORBID (SEVERE) OBESITY DUE TO EXCESS CALORIES; Z68.42 - BODY MASS INDEX (BMI) 45.0-49.9, ADULT Status: Chronic (5) Hepatic encephalopathy Code(s): K72.90 - HEPATIC FAILURE, UNSPECIFIED WITHOUT COMA Status: Resolved - Plan continue antibiotics, PT/OT, out of bed/ambulate Hepatic encephalopathy resolved. Continue IV meropenem, await urine culture (h/o prior UTI with multi-drug resistant E. coli).
[2019-06-02] MEDS: Levothyroxine Sodium 100 MCG TAB PER TUBE SCH (05:51)
[2019-06-02] MEDS: MEROPENEM 1 GM/50 ML 1 GM in Premix Bag 1 BAG IVPB SCH ×3 (05:52→21:17)
[2019-06-02] MEDS: Saccharomyces boulardii 250 MG CAP PO SCH (09:13)
[2019-06-02] MEDS: Nystatin Powder 15 GM BOT TOP SCH ×2 (09:13→21:17)
[2019-06-02] MEDS: Famotidine/PF 20 mg/2ml Vial SLOW IVP SCH ×2 (09:13→21:17)
--- NOTE | 2019-06-02 14:13 | PDOC.HOSPP ---
- Subjective Encounter Date: 06/02/19 Encounter Time: 10:00 Subjective: Expresses no complaint.. - Objective Vital Signs & Weight: Vital Signs (12 hours) Temp Pulse Resp BP Pulse Ox 06/02/19 13:09 64 20 95 06/02/19 08:00 95 06/02/19 07:11 98.4 F 61 20 113/60 95 06/02/19 06:54 91 L 06/02/19 06:51 63 20 91 L Weight Admit Weight 273 lb 12.8 oz Weight 273 lb 12.8 oz I&O: 06/01/19 06/02/19 06/03/19 06:59 06:59 06:59 Intake Total 954 900 Output Total 700 400 Balance 254 500 Result Diagrams: 05/30/19 04:43 05/30/19 04:43 Hospitalist ROS - Medication Medications: Active Medications Generic Name Dose Route Start Last Admin Trade Name Freq PRN Reason Stop Dose Admin Acetaminophen 650 mg 05/29/19 11:35 05/31/19 20:07 Tylenol PER TUBE 650 mg Q4H PRN Administration Headache/Fever/Mild Pain (1-3) Albuterol/Ipratropium 3 ml 05/29/19 13:00 06/02/19 13:09 Duoneb NEB 3 ml [id number] SAMIRA Administration Famotidine 20 mg 05/29/19 21:00 06/02/19 09:13 Pepcid SLOW IVP 20 mg Q12HR SAMIRA Administration Meropenem 1 gm/ Device 50 mls @ 200 mls/hr 05/29/19 14:00 06/02/19 05:52 IVPB 50 mls Q8HR SAMIRA Administration Lactulose 20 gm 05/30/19 21:00 06/02/19 09:13 Lactulose PER TUBE 20 gm BID SAMIRA Administration Levothyroxine Sodium 150 mcg 05/30/19 06:00 06/02/19 05:51 Synthroid PER TUBE 150 mcg 0600 SAMIRA Administration Nystatin 1 gm 05/29/19 21:00 06/02/19 09:13 Mycostatin Powder TOP 1 applic BID SAMIRA Administration Saccharomyces Boulardii 250 mg 05/30/19 09:00 06/02/19 09:13 Florastor PO 250 mg DAILY SAMIRA Administration Sodium Chloride 10 ml 05/29/19 21:00 06/02/19 09:14 Flush - Normal Saline IVF 10 ml Q12HR SAMIRA Administration - Exam Heart: RRR Respiratory: CTAB Gastrointestinal: soft Extremities: no edema Neurological: no weakness Hosp A/P (1) UTI (urinary tract infection) Status: Acute Qualifiers: Urinary tract infection type: acute cystitis Hematuria presence: without hematuria Qualified Code(s): N30.00 - Acute cystitis without hematuria (2) Cirrhosis of liver Code(s): K74.60 - UNSPECIFIED CIRRHOSIS OF LIVER Status: Chronic Qualifiers: Ascites presence: unspecified (3) Hypothyroidism Code(s): E03.9 - HYPOTHYROIDISM, UNSPECIFIED Status: Chronic (4) Morbid obesity with BMI of 45.0-49.9, adult Code(s): E66.01 - MORBID (SEVERE) OBESITY DUE TO EXCESS CALORIES; Z68.42 - BODY MASS INDEX (BMI) 45.0-49.9, ADULT Status: Chronic (5) Hepatic encephalopathy Code(s): K72.90 - HEPATIC FAILURE, UNSPECIFIED WITHOUT COMA Status: Resolved Plan: Resolved.. - Plan Urine is growing K. pneumonia. Continue iv antibiotics.. C&S reviewed..
[2019-06-03] MEDS: Levothyroxine Sodium 100 MCG TAB PER TUBE SCH (05:39)
[2019-06-03] MEDS: MEROPENEM 1 GM/50 ML 1 GM in Premix Bag 1 BAG IVPB SCH ×3 (05:39→22:46)
[2019-06-03] MEDS: Famotidine/PF 20 mg/2ml Vial SLOW IVP SCH ×2 (08:26→22:45)
[2019-06-03] MEDS: Saccharomyces boulardii 250 MG CAP PO SCH (08:29)
[2019-06-03] MEDS: Nystatin Powder 15 GM BOT TOP SCH ×2 (08:29→22:45)
--- NOTE | 2019-06-03 12:11 | PDOC.HOSPP ---
- Subjective Encounter Date: 06/03/19 Encounter Time: 09:50 Subjective: No new complaint. - Objective Vital Signs & Weight: Vital Signs (12 hours) Temp Pulse Resp BP Pulse Ox 06/03/19 11:44 97.6 F 64 18 105/68 97 06/03/19 08:00 92 L 06/03/19 07:12 97.9 F 65 16 108/71 92 L 06/03/19 06:36 70 12 06/03/19 06:00 97/60 06/03/19 04:00 98.8 F 60 16 83/32 L 95 06/03/19 00:37 16 Weight Admit Weight 273 lb 12.8 oz Weight 273 lb 12.8 oz I&O: 06/02/19 06/03/19 06/04/19 06:59 06:59 05:59 Intake Total 900 350 Output Total 400 450 Balance 500 -100 Result Diagrams: 05/30/19 04:43 05/30/19 04:43 Hospitalist ROS - Medication Medications: Active Medications Generic Name Dose Route Start Last Admin Trade Name Freq PRN Reason Stop Dose Admin Acetaminophen 650 mg 05/29/19 11:35 05/31/19 20:07 Tylenol PER TUBE 650 mg Q4H PRN Administration Headache/Fever/Mild Pain (1-3) Albuterol/Ipratropium 3 ml 05/29/19 13:00 06/03/19 06:36 Duoneb NEB 3 ml [id number] SAMIRA Administration Famotidine 20 mg 05/29/19 21:00 06/03/19 08:26 Pepcid SLOW IVP 20 mg Q12HR SAMIRA Administration Meropenem 1 gm/ Device 50 mls @ 200 mls/hr 05/29/19 14:00 06/03/19 05:39 IVPB 50 mls Q8HR SAMIRA Administration Lactulose 20 gm 05/30/19 21:00 06/03/19 08:29 Lactulose PER TUBE 20 gm BID SAMIRA Administration Levothyroxine Sodium 150 mcg 05/30/19 06:00 06/03/19 05:39 Synthroid PER TUBE 150 mcg 0600 SAMIRA Administration Nystatin 1 gm 05/29/19 21:00 06/03/19 08:29 Mycostatin Powder TOP 1 applic BID SAMIRA Administration Saccharomyces Boulardii 250 mg 05/30/19 09:00 06/03/19 08:29 Florastor PO 250 mg DAILY SAMIRA Administration Sodium Chloride 10 ml 05/29/19 21:00 06/03/19 08:29 Flush - Normal Saline IVF 10 ml Q12HR SAMIRA Administration - Exam General Appearance: NAD Neck: no JVD Neck - other findings: s/p tracheostomy, on tracheal mask. Heart: RRR Respiratory: CTAB Gastrointestinal: soft Extremities: no edema Neurological: no weakness Hosp A/P (1) UTI (urinary tract infection) Status: Acute Qualifiers: Urinary tract infection type: acute cystitis Hematuria presence: without hematuria Qualified Code(s): N30.00 - Acute cystitis without hematuria Plan: BxC is grow gram positive rods.. ID consulted. Continue antibiotics.. (2) Cirrhosis of liver Code(s): K74.60 - UNSPECIFIED CIRRHOSIS OF LIVER Status: Chronic Qualifiers: Ascites presence: unspecified Plan: Encephalopathy resolved.. (3) Hypothyroidism Code(s): E03.9 - HYPOTHYROIDISM, UNSPECIFIED Status: Chronic Plan: supplemented.. (4) Morbid obesity with BMI of 45.0-49.9, adult Code(s): E66.01 - MORBID (SEVERE) OBESITY DUE TO EXCESS CALORIES; Z68.42 - BODY MASS INDEX (BMI) 45.0-49.9, ADULT Status: Chronic (5) Hepatic encephalopathy Code(s): K72.90 - HEPATIC FAILURE, UNSPECIFIED WITHOUT COMA Status: Resolved Plan: Resolved. - Plan Urine is growing K. pneumonia. BxC is growing gram positive rods.. Continue iv antibiotics.. ID to evaluate. C&S reviewed..
[2019-06-04] MEDS: MEROPENEM 1 GM/50 ML 1 GM in Premix Bag 1 BAG IVPB SCH ×3 (06:11→22:00)
[2019-06-04] MEDS: Levothyroxine Sodium 100 MCG TAB PER TUBE SCH (06:18)
[2019-06-04] MEDS: Famotidine/PF 20 mg/2ml Vial SLOW IVP SCH ×2 (08:02→22:00)
[2019-06-04] MEDS: Saccharomyces boulardii 250 MG CAP PO SCH (08:02)
[2019-06-04] MEDS: Nystatin Powder 15 GM BOT TOP SCH ×2 (08:03→22:00)
--- NOTE | 2019-06-04 09:59 | PDOC.HOSPP ---
- Subjective Encounter Date: 06/04/19 Encounter Time: 09:56 Subjective: No complaint. - Objective Vital Signs & Weight: Vital Signs (12 hours) Temp Pulse Resp BP Pulse Ox 06/04/19 08:00 98.2 F 63 18 104/65 98 06/04/19 06:43 57 L 20 97 06/04/19 03:42 97.8 F 59 L 18 111/70 95 06/04/19 00:04 66 18 95 06/03/19 23:25 98.3 F 63 20 106/63 94 L Weight Admit Weight 273 lb 12.8 oz Weight 273 lb 12.8 oz I&O: 06/03/19 06/04/19 06/05/19 07:59 06:59 06:59 Intake Total Output Total Balance Result Diagrams: 05/30/19 04:43 05/30/19 04:43 Radiology Reviewed by me: Yes Hospitalist ROS - Medication Medications: Active Medications Generic Name Dose Route Start Last Admin Trade Name Freq PRN Reason Stop Dose Admin Acetaminophen 650 mg 05/29/19 11:35 05/31/19 20:07 Tylenol PER TUBE 650 mg Q4H PRN Administration Headache/Fever/Mild Pain (1-3) Albuterol/Ipratropium 3 ml 05/29/19 13:00 06/04/19 06:43 Duoneb NEB 3 ml [id number] SAMIRA Administration Famotidine 20 mg 05/29/19 21:00 06/04/19 08:02 Pepcid SLOW IVP 20 mg Q12HR SAMIRA Administration Meropenem 1 gm/ Device 50 mls @ 200 mls/hr 05/29/19 14:00 06/04/19 06:11 IVPB 50 mls Q8HR SAMIRA Administration Lactulose 20 gm 05/30/19 21:00 06/04/19 08:02 Lactulose PER TUBE 20 gm BID SAMIRA Administration Levothyroxine Sodium 150 mcg 05/30/19 06:00 06/04/19 06:18 Synthroid PER TUBE 150 mcg 0600 SAMIRA Administration Nystatin 1 gm 05/29/19 21:00 06/04/19 08:03 Mycostatin Powder TOP 1 applic BID SAMIRA Administration Saccharomyces Boulardii 250 mg 05/30/19 09:00 06/04/19 08:02 Florastor PO 250 mg DAILY SAMIRA Administration Sodium Chloride 10 ml 05/29/19 21:00 06/04/19 08:03 Flush - Normal Saline IVF 10 ml Q12HR SAMIRA Administration - Exam General Appearance: NAD Neck: no JVD Heart: RRR Respiratory: CTAB Gastrointestinal: soft Extremities: no edema Neurological: no focal deficits Psychiatric: normal affect Hosp A/P (1) UTI (urinary tract infection) Status: Acute Qualifiers: Urinary tract infection type: acute cystitis Hematuria presence: without hematuria Qualified Code(s): N30.00 - Acute cystitis without hematuria Plan: Urine C&S grows K. Pneumoniae (2) Cirrhosis of liver Code(s): K74.60 - UNSPECIFIED CIRRHOSIS OF LIVER Status: Chronic Qualifiers: Ascites presence: unspecified (3) Hypothyroidism Code(s): E03.9 - HYPOTHYROIDISM, UNSPECIFIED Status: Chronic Plan: supplemented.. (4) Morbid obesity with BMI of 45.0-49.9, adult Code(s): E66.01 - MORBID (SEVERE) OBESITY DUE TO EXCESS CALORIES; Z68.42 - BODY MASS INDEX (BMI) 45.0-49.9, ADULT Status: Chronic (5) Hepatic encephalopathy Code(s): K72.90 - HEPATIC FAILURE, UNSPECIFIED WITHOUT COMA Status: Resolved Plan: Resolved. - Plan Urine is growing K. pneumonia. BxC is growing gram positive rods, possibly contamination; however she was admitted with sepsis , which makes interpretation difficult... Continue iv antibiotics.. ID consulted... F/u C&S.
--- NOTE | 2019-06-04 15:51 | CON ---
DATE OF CONSULTATION: 06/04/2019 REASON FOR CONSULTATION: Recommendations regarding treatment of findings in one set of blood cultures. HISTORY OF PRESENT ILLNESS: Ms. Springer is a 64-year-old lady, whom I have seen previously and has a history of morbid obesity, steatohepatitis with liver cirrhosis, and previous episodes of encephalopathy and hypoventilation syndrome requiring placement of a tracheostomy, type 2 diabetes, and prior smoking and prior episodes of cellulitis. I last saw her in September when there were questions regarding treatment of urinary abnormalities. At this time, she presented with altered mental status and had evidence of hepatic encephalopathy, CHF, and she was given lactulose and given oxygen supplementation. She improved steadily and was given antimicrobial therapy for the findings in urinary tract. She did have greater than 50 wbc's per high-power field, although no report of dysuria or other urinary symptoms were given. Currently, Ms. Springer is awake. She recognized me and knows where she is. Follows commands. She denies any headaches. A little bit of sore throat. No back pain. Mild dyspnea. A little bit of cough. No chest pain. No abdominal pain. Soft stool. She has a Magana catheter inserted. She is able to move extremities, but she is diffusely weak. PAST MEDICAL HISTORY: Obesity, lymphedema, KATE with hypoventilation syndrome and tracheostomy, steatohepatitis with liver cirrhosis, prior episodes of hepatic encephalopathy, prior chronic smoking, episodes of respiratory failure, and gastrostomy tube placement. PAST SURGICAL HISTORY: Includes also cholecystectomy, tonsillectomy, , and had pneumothorax, which required chest tube placement. ALLERGIES: PENICILLIN WITH RASH. SOCIAL HISTORY: Chronic smoker up until recently. Had been living at home. Had hospice admission before, but now she is in the long term. FAMILY HISTORY: Noncontributory. CURRENT MEDICATIONS: 1. Tylenol. 2. DuoNeb. 3. Dulcolax. 4. Pepcid. 5. P.r.n. hydralazine. 6. P.r.n. labetalol. 7. Lactulose. 8. Levothyroxine. 9. Meropenem. 10. Metoclopramide. 11. Nystatin. PHYSICAL EXAMINATION: VITAL SIGNS: She has remained afebrile throughout the hospital stay. Pulse 63, respirations 18 to 20, and O2 saturation 96% on 5 L nasal cannula. SKIN: With areas of stasis dermatitis and hyperpigmentation in lower extremities. No significant ulcerations noted. : She has a Magana catheter in place. A little bit of maceration in the intertriginous areas in the groin. Peripheral IV access. HEENT: Ocular movements conjugate. Conjunctivae normal. Oral cavity was not remarkable. NECK: No jugular venous distention. LUNGS: Symmetric breath sounds. No wheezing or crackles. HEART: S1 and S2. No murmurs. No S3. ABDOMEN: Very prominent panniculus, but no tenderness. Moderate intertriginous maceration in the groin area. NEUROLOGIC: She is diffusely weak, but able to wiggle her feet. Plantar responses are indifferent. Pulses are 1+ in dorsalis pedis. She is awake. She recognized me. She knows she is in the hospital and knows more last the year, but not the exact date. Speech appears to be normal. She does not recall events surrounding the admission. LABORATORY DATA: White cell count started at 6.4 with 53% neutrophils. Hemoglobin started at 12.5 and it is 11.8. Platelet count has been low as noted previously due to her liver cirrhosis, portal hypertension, and hypersplenism. Chemistry analysis with creatinine was 1.18 and now is down to 0.84; and the liver studies; AST 99, ALT 23, alkaline phosphatase was 135, bilirubin 0.7, albumin 2.6, and globulin 4.5. Urinalysis with greater than 50 wbc's. Cultures with 1/2 sets of blood cultures with gram-positive snehal. This was seen in the Gram stain, was a preliminary finding. The final report on 06/04 has no growth actually. The urine culture with Klebsiella pneumoniae with susceptibility to some cephalosporins, but not ceftriaxone resistance to quinolone. ASSESSMENT: Morbid obesity, steatohepatitis with cirrhosis, portal hypertension with encephalopathy, pulmonary congestion, hypoventilation syndrome requiring tracheostomy placement. Urinary colonization with Klebsiella pneumoniae with pyuria, but no urinary symptoms. She is Magana catheterized at this time. In an abdomen CT from 2018, she did have left-sided nephrolithiasis, but no obstructive uropathy at that time. DISCUSSION: The most likely scenario here is hepatic encephalopathy with change in mental state with the complication of the cardiopulmonary syndrome, probably an element of hypoxemia as well in the long term. It is possible that the urinary tract had a role in this, but it is not yet certain. She was not bacteremic and if there are no abnormalities noted on CT stone protocol or ultrasound, i.e.: If there is no evidence of hydronephrosis or obstructive uropathy, otherwise I would discontinue meropenem at this time. So, go ahead and order either a CT stone protocol or an abdominal ultrasound to evaluate presence of hydronephrosis, and if that is not present, then I would discontinue meropenem. The gram-positive snehal found in the blood cultures represents contamination of the sample and I would recommend ignoring this finding at this point in time. Job ID: [id number]
[2019-06-05] MEDS: MEROPENEM 1 GM/50 ML 1 GM in Premix Bag 1 BAG IVPB SCH ×2 (06:30→15:50)
[2019-06-05] MEDS: Levothyroxine Sodium 100 MCG TAB PER TUBE SCH (06:30)
[2019-06-05] MEDS: Famotidine/PF 20 mg/2ml Vial SLOW IVP SCH (08:38)
[2019-06-05] MEDS: Saccharomyces boulardii 250 MG CAP PO SCH (08:38)
--- NOTE | 2019-06-05 09:30 | ULT ---
ULTRASOUND RETROPERITONEUM COMPLETE: (RENAL) 06/05/2019 HISTORY: A 64-year-old female with a urinary tract infection and sepsis. FINDINGS: Because of body habitus, visualization of bilateral kidneys is significantly limited. The right kidney measures 9.5 x 5.5 x 5.5 cm. The left kidney measures 10 x 6 x 5.5 cm. Both kidney s have normal cortical thickness and normal cortical echogenicity. There is no hydronephrosis. Ther e is a Magana catheter in an empty urinary bladder. IMPRESSION: 1) No hydronephrosis. 2) Magana catheter within empty bladder. jn [] POS: CET
[2019-06-05] MEDS: Nystatin Powder 15 GM BOT TOP SCH (11:03)
--- NOTE | 2019-06-05 13:04 | DIS ---
DATE OF ADMISSION: 05/29/2019 DATE OF DISCHARGE: 06/05/2019 PRIMARY CARE PROVIDER: Dr. Perfecto García. FINAL DIAGNOSES: Hepatic encephalopathy, cirrhosis of the liver, urinary tract infection, and chronic stage C diastolic heart failure. DISCHARGE MEDICATIONS: 1. Potassium chloride 20 mEq twice a day. 2. DuoNeb 2.5 q.i.d. 3. Pepcid 20 mg per tube b.i.d. 4. Escitalopram 10 mg per tube daily. 5. Gabapentin 300 mg per tube b.i.d. 6. Lasix 80 mg per tube. 7. Aldactone 12.5 mg per tube q.a.m. 8. Aspirin 81 mg per tube. 9. Levothyroxine 150 mg per tube daily. 10. Lactulose 20 g per tube daily. ALLERGIES: PENICILLINS. DIET: Tube feedings. CODE STATUS: Full resuscitation. HOSPITAL COURSE: The patient is a resident of [facility], sent to [facility] for altered mental status. She was found to have a high ammonia level, history of cirrhosis, and elevated ammonia level. She was treated with lactulose. She has a PEG tube. It was given per PEG tube. Her initial laboratory; white count 6.4, hemoglobin 12.5, platelet count 115,000. Comprehensive metabolic profile; creatinine 1.18, BUN 26, sodium 140, potassium 3.8. Bilirubin 1.6, AST 50, alkaline phosphatase 149, and ammonia was 97. Ammonia followup was 51. The patient had renal function returned to normal with a creatinine of 0.84. The patient's urinary culture grew Klebsiella pneumonia. It was treated for 7 days with meropenem adequate treatment. One blood culture was positive for gram-positive snehal, otherwise negative. This is considered in a contaminant. This decision confirmed with a consult from Infectious Disease, Dr. Crain. At the time of discharge, the patient is doing well. Her encephalopathy has resolved. She is being discharged back to [facility] under the care of Dr. García. In addition to the medicine, she is on trach care, PEG care, and O2 p.r.n. per tracheostomy. Job ID: [id number]
--- NOTE | 2019-06-05 16:31 | DIS ---
DATE OF ADMISSION: 05/29/2019 DATE OF DISCHARGE: 06/05/2019 CORRECTION: DISCHARGE DIAGNOSES: Hepatic encephalopathy, cirrhosis of the liver, urinary tract infection, and hypertension. The chronic stage C diastolic heart failure should be removed. Job ID: [id number]
[2019-06-05 16:34] VITALS: BP 110/71; TEMP 98.1
--- NOTE | 2019-06-07 07:14 | PQF ---
[employer] Extracorporeal Technician Crystal Reports Winform Viewer LOIS ESTRADA CORTNEY PATINO MD [id number] CLINICAL DOCUMENTATION CLARIFICATION FORM: POST DISCHARGE Addendum to original discharge summary date: ____ Late entry note date: __ DATE: 06/07/2019 ATTN:CORTNEY PATINO MD Please exercise your independent, professional judgment in responding to the clarification form. Clinical indicators are provided on the bottom of this form for your review Please check appropriate box(s) to clarify if the following diagnosis has been ruled in or ruled out: SEPSIS [ ] Ruled in diagnosis [ ] Continue to treat [ ] Resolved [ x] Ruled out diagnosis [ ] Cannot rule out diagnosis [ x ] Other diagnosis _DKA [ ] Unable to determine For continuity of documentation, please document condition throughout progress notes and discharge summary. Thank You. CLINICAL INDICATORS - SIGNS / SYMPTOMS / LABS - Acute encephalopathy due to multi factorial etiology including sepsis secondary to UTI as well as the patient has metabolic encephalopathy from hepatic encephalopathy -H&P, 05/29, Yordy Garcia - Multi-drug resistance urinary tract infection-H&P, 05/29, Yordy Garcia - Temp: 97.8, RR:21, Pulse:70-H&P, 05/29, Yordy Garcia - WBC: 6.4- H&P, 05/29, Yordy Garcia - Urine cx grew Klebsiella pneumonia-DS, 06/05, Cortney Patino MD RISK FACTORS - Hepatic encephalopathy- H&P, 05/29, Yordy Garcia - Acute metabolic encephalopathy-Hospital PN, 05/30, Yordy Garcia TREATMENTS -Meropenem.IV-DS, 06/05, Cortney Patino MD (This form is maintained as a part of the permanent medical record) 2014 [email or web address], [email or web address]. All Rights Reserved Constantine Cooney [not provided] [not provided] JLUIS
== END 2019-06-05 16:19 | DRG 441 ==
LOC: ERS 05:01 → 2NO 07:54 → T4-A 05-31 17:48
PROVIDERS: ADMIT Internal Medicine; ATTEND Internal Medicine
DX: K72.90 Hepatic failure, unspecified without coma (principal); G93.41 Metabolic encephalopathy; E11.10 Type 2 diabetes mellitus with ketoacidosis without coma; N30.00 Acute cystitis without hematuria; J96.11 Chronic respiratory failure with hypoxia; I13.0 Hypertensive heart and chronic kidney disease with heart failure and stage 1 through stage 4 chronic kidney disease, or unspecified chronic kidney disease; I50.32 Chronic diastolic (congestive) heart failure; K76.6 Portal hypertension; K74.60 Unspecified cirrhosis of liver; J44.9 Chronic obstructive pulmonary disease, unspecified; E11.9 Type 2 diabetes mellitus without complications; E03.9 Hypothyroidism, unspecified; G47.33 Obstructive sleep apnea (adult) (pediatric); K21.9 Gastro-esophageal reflux disease without esophagitis; K59.00 Constipation, unspecified; D50.9 Iron deficiency anemia, unspecified; E66.01 Morbid (severe) obesity due to excess calories; D69.6 Thrombocytopenia, unspecified; E78.5 Hyperlipidemia, unspecified; E87.6 Hypokalemia; F32.9 Major depressive disorder, single episode, unspecified; F41.9 Anxiety disorder, unspecified; E11.40 Type 2 diabetes mellitus with diabetic neuropathy, unspecified; I48.0 Paroxysmal atrial fibrillation; N18.3 Chronic kidney disease, stage 3 (moderate); I87.2 Venous insufficiency (chronic) (peripheral); B96.1 Klebsiella pneumoniae [K. pneumoniae] as the cause of diseases classified elsewhere; K75.81 Nonalcoholic steatohepatitis (NASH); Z79.01 Long term (current) use of anticoagulants; Z86.73 Personal history of transient ischemic attack (TIA), and cerebral infarction without residual deficits; Z87.891 Personal history of nicotine dependence; Z88.1 Allergy status to other antibiotic agents; Z88.0 Allergy status to penicillin; Z93.0 Tracheostomy status; Z93.1 Gastrostomy status
CPT/HCPCS: 36415; 36416; 51701; 70450; 71045; 71275; 76770; 80053; 81003; 81015; 82140; 82553; 83605; 83735; 83880; 84443; 84484; 85025; 85379; 87040; 87076; 87077; 87086; 87186; 90471; 90686; 93005; 94640; 96360; 96361; 96365; A4353; G0008; J2185; J7620; Q9966; S0028

== ENCOUNTER 2019-06-15 23:15 | Emergency (ER) | payer OTHER | END 2019-06-16 00:39 | LOC: ERS 23:15 | DX: J95.03 Malfunction of tracheostomy stoma (principal); E11.9 Type 2 diabetes mellitus without complications; E03.9 Hypothyroidism, unspecified; J44.9 Chronic obstructive pulmonary disease, unspecified; G47.30 Sleep apnea, unspecified; K21.9 Gastro-esophageal reflux disease without esophagitis; D50.9 Iron deficiency anemia, unspecified; E66.01 Morbid (severe) obesity due to excess calories; E78.5 Hyperlipidemia, unspecified; F32.9 Major depressive disorder, single episode, unspecified; F41.9 Anxiety disorder, unspecified; Z87.891 Personal history of nicotine dependence; Z79.82 Long term (current) use of aspirin; Z79.899 Other long term (current) drug therapy; Z79.51 Long term (current) use of inhaled steroids | CPT/HCPCS: 31502 ==

== ENCOUNTER 2019-06-18 16:54 | Emergency (ER) | payer OTHER ==
--- NOTE | 2019-06-18 18:47 | RAD ---
CHEST ONE VIEW: Comparison: 05-29-19 History: Cough. FINDINGS: Atherosclerosis of the aorta. Normal cardiac silhouette. Lung volumes are diminished. Diffuse interst itial and alveolar opacities which may in part be due to decreased lung volume. Superimposed edema an d/or infiltrate cannot be excluded. No pneumothorax or pleural effusion. IMPRESSION: 1. Atherosclerosis. 2. Diminished lung volumes, likely due to poor inspiratory effort. 3. Interstitial and alveolar opacities as described above. Correlate for edema or infiltrate. Continu ed surveillance is recommended. POS: PPP
--- NOTE | 2019-06-18 22:36 | HP ---
HISTORY OF PRESENT ILLNESS: Love Springer is a morbidly obese 64-year-old female, who lives in the snf. She has hypoventilation syndrome from morbid obesity. I had placed a tracheostomy in 2018, #8 Shiley. She presented in August with a dislodged tracheostomy and I had to replace it in the emergency room, it has neglected in the emergency room and I had to dilate the opening. In November, I took her to the operating room, had surgically opened this to replace a tracheostomy tube. Now, she reports with the same situation with a neglected tracheostomy tube #4. She was in the emergency room recently and the Respiratory replaced it. Now, she was here and they cannot obtain access, so they have called me. At the bedside, I dilated her stoma with a Shiley lubricated dilator and then placed a #4 Shiley noncuffed tracheostomy. It was retained and replaced. She was suctioned. She tolerated well with some discomfort. ASSESSMENT AND PLAN: Dislodged tracheostomy tube. We would ask that the snf inspect her tracheostomy tube daily to ensure it is in proper position and secured well and have them check the straps at least 2 to 3 times a day. Job ID: [id number]
== END 2019-06-18 20:10 ==
LOC: ERS 16:54
DX: J95.03 Malfunction of tracheostomy stoma (principal); E11.9 Type 2 diabetes mellitus without complications; E03.9 Hypothyroidism, unspecified; J44.9 Chronic obstructive pulmonary disease, unspecified; I48.91 Unspecified atrial fibrillation; G47.33 Obstructive sleep apnea (adult) (pediatric); I11.0 Hypertensive heart disease with heart failure; I50.30 Unspecified diastolic (congestive) heart failure; J96.91 Respiratory failure, unspecified with hypoxia; K21.9 Gastro-esophageal reflux disease without esophagitis; D50.9 Iron deficiency anemia, unspecified; E66.01 Morbid (severe) obesity due to excess calories; E78.5 Hyperlipidemia, unspecified; Z87.891 Personal history of nicotine dependence; Z79.899 Other long term (current) drug therapy; Z79.82 Long term (current) use of aspirin
CPT/HCPCS: 71045

== ENCOUNTER 2019-07-01 20:22 | Emergency (ER) | payer OTHER | END 2019-07-02 | LOC: ERS 20:22 | DX: Z43.1 Encounter for attention to gastrostomy (principal); E11.9 Type 2 diabetes mellitus without complications; E03.9 Hypothyroidism, unspecified; J44.9 Chronic obstructive pulmonary disease, unspecified; G47.30 Sleep apnea, unspecified; I48.91 Unspecified atrial fibrillation; R50.9 Fever, unspecified; E87.6 Hypokalemia; F41.9 Anxiety disorder, unspecified; F32.9 Major depressive disorder, single episode, unspecified; Z87.891 Personal history of nicotine dependence; Z79.82 Long term (current) use of aspirin; Z79.01 Long term (current) use of anticoagulants; Z79.899 Other long term (current) drug therapy | CPT/HCPCS: 31502 ==

== ENCOUNTER 2019-07-19 03:15 | Emergency (ER) | payer OTHER | END 2019-07-19 05:36 | LOC: ERS 03:15 | DX: K94.23 Gastrostomy malfunction (principal); E11.9 Type 2 diabetes mellitus without complications; E03.9 Hypothyroidism, unspecified; J44.9 Chronic obstructive pulmonary disease, unspecified; I10 Essential (primary) hypertension; I48.91 Unspecified atrial fibrillation; K21.9 Gastro-esophageal reflux disease without esophagitis; D50.9 Iron deficiency anemia, unspecified; E66.01 Morbid (severe) obesity due to excess calories; E87.6 Hypokalemia; F32.9 Major depressive disorder, single episode, unspecified; G47.33 Obstructive sleep apnea (adult) (pediatric); Z87.891 Personal history of nicotine dependence; Z79.82 Long term (current) use of aspirin; Z79.899 Other long term (current) drug therapy; Z79.1 Long term (current) use of non-steroidal anti-inflammatories (NSAID); Z79.01 Long term (current) use of anticoagulants | CPT/HCPCS: 99283 ==

== ENCOUNTER 2019-07-19 20:42 | Emergency (ER) | payer OTHER | END 2019-07-19 23:31 | LOC: ERS 20:42 | DX: J95.03 Malfunction of tracheostomy stoma (principal); E11.9 Type 2 diabetes mellitus without complications; E03.9 Hypothyroidism, unspecified; J44.9 Chronic obstructive pulmonary disease, unspecified; I11.0 Hypertensive heart disease with heart failure; I50.9 Heart failure, unspecified; G47.30 Sleep apnea, unspecified; D50.9 Iron deficiency anemia, unspecified; E66.01 Morbid (severe) obesity due to excess calories; E78.5 Hyperlipidemia, unspecified; I48.91 Unspecified atrial fibrillation; Z79.01 Long term (current) use of anticoagulants; Z79.899 Other long term (current) drug therapy; Z79.1 Long term (current) use of non-steroidal anti-inflammatories (NSAID); Z79.82 Long term (current) use of aspirin | CPT/HCPCS: 99285 ==

== ENCOUNTER 2019-09-04 18:24 | Emergency (ER) | payer OTHER | END 2019-09-04 19:30 | disposition home or self-care (01) | LOC: ERS 18:24 | DX: J95.03 Malfunction of tracheostomy stoma (principal); E11.9 Type 2 diabetes mellitus without complications; E03.9 Hypothyroidism, unspecified; J44.9 Chronic obstructive pulmonary disease, unspecified; I48.91 Unspecified atrial fibrillation; I11.0 Hypertensive heart disease with heart failure; I50.30 Unspecified diastolic (congestive) heart failure; K21.9 Gastro-esophageal reflux disease without esophagitis; D50.9 Iron deficiency anemia, unspecified; E66.01 Morbid (severe) obesity due to excess calories; E78.5 Hyperlipidemia, unspecified; F32.9 Major depressive disorder, single episode, unspecified; F41.9 Anxiety disorder, unspecified; Z87.891 Personal history of nicotine dependence | CPT/HCPCS: 31502 ==

== ENCOUNTER 2019-09-18 22:00 | Emergency (ER) | payer OTHER ==
--- NOTE | 2019-09-19 03:37 | HP ---
I was called to the patient's bedside in the emergency department. She has a longstanding tracheostomy tube in place. It was found to be dislodged in her residence and was brought here via ambulance. The Emergency Team was unable to easily put in a tracheostomy and asked me to come in and put it in. The patient was noted to have a well-formed tracheostomy tract. We used a #4 cuffless fenestrated trach tube and was easily inserted without any trauma in a normal fashion, and it was sutured, and it was velcroed in place the tracheostomy tube, the airway was then suctioned of mucus, and she was breathing without any difficulty at the time of completion. Job ID: [id number]
== END 2019-09-19 00:45 ==
LOC: ERS 22:00
DX: J95.03 Malfunction of tracheostomy stoma (principal); E11.9 Type 2 diabetes mellitus without complications; E03.9 Hypothyroidism, unspecified; J44.9 Chronic obstructive pulmonary disease, unspecified; I48.91 Unspecified atrial fibrillation; I11.0 Hypertensive heart disease with heart failure; I50.30 Unspecified diastolic (congestive) heart failure; K74.60 Unspecified cirrhosis of liver; D64.9 Anemia, unspecified; E78.5 Hyperlipidemia, unspecified; K21.9 Gastro-esophageal reflux disease without esophagitis; E66.01 Morbid (severe) obesity due to excess calories; F32.9 Major depressive disorder, single episode, unspecified; F41.9 Anxiety disorder, unspecified; Z87.891 Personal history of nicotine dependence
CPT/HCPCS: 99283

== ENCOUNTER 2019-09-20 15:11 | Emergency (ER) | payer OTHER | END 2019-09-20 16:20 | disposition home or self-care (01) | LOC: ERS 15:11 | DX: Z43.0 Encounter for attention to tracheostomy (principal); E11.9 Type 2 diabetes mellitus without complications; E03.9 Hypothyroidism, unspecified; J44.9 Chronic obstructive pulmonary disease, unspecified; G47.33 Obstructive sleep apnea (adult) (pediatric); I48.91 Unspecified atrial fibrillation; I11.0 Hypertensive heart disease with heart failure; I50.9 Heart failure, unspecified; K21.9 Gastro-esophageal reflux disease without esophagitis; D50.9 Iron deficiency anemia, unspecified; E66.01 Morbid (severe) obesity due to excess calories; E78.5 Hyperlipidemia, unspecified; F32.9 Major depressive disorder, single episode, unspecified; F41.9 Anxiety disorder, unspecified; Z87.891 Personal history of nicotine dependence | CPT/HCPCS: 31502 ==

== ENCOUNTER 2019-09-21 12:46 | Emergency (ER) | payer OTHER | END 2019-09-21 18:35 | LOC: ERS 12:46 | DX: J95.03 Malfunction of tracheostomy stoma (principal); E66.01 Morbid (severe) obesity due to excess calories; I11.0 Hypertensive heart disease with heart failure; I50.9 Heart failure, unspecified; E11.9 Type 2 diabetes mellitus without complications; E03.9 Hypothyroidism, unspecified; J44.9 Chronic obstructive pulmonary disease, unspecified; G47.33 Obstructive sleep apnea (adult) (pediatric); I48.91 Unspecified atrial fibrillation; K21.9 Gastro-esophageal reflux disease without esophagitis; D50.9 Iron deficiency anemia, unspecified; E78.5 Hyperlipidemia, unspecified; F41.9 Anxiety disorder, unspecified; F32.9 Major depressive disorder, single episode, unspecified; Z87.891 Personal history of nicotine dependence; Z79.82 Long term (current) use of aspirin; Z79.899 Other long term (current) drug therapy; Z79.51 Long term (current) use of inhaled steroids | CPT/HCPCS: 31502 ==

== ENCOUNTER 2019-09-28 22:49 | Emergency (ER) | payer OTHER | END 2019-09-29 01:57 | LOC: ERS 22:49 | DX: J95.03 Malfunction of tracheostomy stoma (principal); E11.9 Type 2 diabetes mellitus without complications; E03.9 Hypothyroidism, unspecified; E66.9 Obesity, unspecified; J44.9 Chronic obstructive pulmonary disease, unspecified; I48.91 Unspecified atrial fibrillation; G47.33 Obstructive sleep apnea (adult) (pediatric); I11.0 Hypertensive heart disease with heart failure; I50.9 Heart failure, unspecified; K21.9 Gastro-esophageal reflux disease without esophagitis; D50.9 Iron deficiency anemia, unspecified; F32.9 Major depressive disorder, single episode, unspecified; F41.9 Anxiety disorder, unspecified; E78.5 Hyperlipidemia, unspecified; Z87.891 Personal history of nicotine dependence; Z79.899 Other long term (current) drug therapy; Z79.82 Long term (current) use of aspirin | CPT/HCPCS: 99283 ==

== ENCOUNTER 2019-10-01 21:22 | Emergency (ER) | payer OTHER | END 2019-10-01 21:33 | disposition home or self-care (01) | LOC: ERS 21:22 | DX: Z43.0 Encounter for attention to tracheostomy (principal); E11.9 Type 2 diabetes mellitus without complications; E03.9 Hypothyroidism, unspecified; J44.9 Chronic obstructive pulmonary disease, unspecified; G47.33 Obstructive sleep apnea (adult) (pediatric); I48.91 Unspecified atrial fibrillation; I11.0 Hypertensive heart disease with heart failure; I50.9 Heart failure, unspecified; K21.9 Gastro-esophageal reflux disease without esophagitis; D50.9 Iron deficiency anemia, unspecified; E66.01 Morbid (severe) obesity due to excess calories; E78.5 Hyperlipidemia, unspecified; F32.9 Major depressive disorder, single episode, unspecified; F41.9 Anxiety disorder, unspecified; Z87.891 Personal history of nicotine dependence; Z79.899 Other long term (current) drug therapy; Z79.82 Long term (current) use of aspirin; Z79.51 Long term (current) use of inhaled steroids | CPT/HCPCS: 31603 ==

== ENCOUNTER 2019-11-28 03:00 | Emergency (ER) | payer OTHER | END 2019-11-28 03:13 | LOC: ERS 03:00 | DX: J95.03 Malfunction of tracheostomy stoma (principal); J44.9 Chronic obstructive pulmonary disease, unspecified; I48.91 Unspecified atrial fibrillation; I11.0 Hypertensive heart disease with heart failure; I50.9 Heart failure, unspecified; K74.60 Unspecified cirrhosis of liver; D50.9 Iron deficiency anemia, unspecified; E03.9 Hypothyroidism, unspecified; G47.33 Obstructive sleep apnea (adult) (pediatric); E87.6 Hypokalemia; K21.9 Gastro-esophageal reflux disease without esophagitis; E66.01 Morbid (severe) obesity due to excess calories; F41.9 Anxiety disorder, unspecified; Z87.891 Personal history of nicotine dependence; Z79.899 Other long term (current) drug therapy; Z79.82 Long term (current) use of aspirin; Z79.01 Long term (current) use of anticoagulants | CPT/HCPCS: 99283 ==

== ENCOUNTER 2019-12-09 23:04 | Emergency (ER) | payer OTHER | END 2019-12-09 23:27 | LOC: ERS 23:04 | DX: J95.03 Malfunction of tracheostomy stoma (principal); E11.9 Type 2 diabetes mellitus without complications; E03.9 Hypothyroidism, unspecified; J44.9 Chronic obstructive pulmonary disease, unspecified; I10 Essential (primary) hypertension; I48.91 Unspecified atrial fibrillation; I50.9 Heart failure, unspecified; K21.9 Gastro-esophageal reflux disease without esophagitis; E66.01 Morbid (severe) obesity due to excess calories; F32.9 Major depressive disorder, single episode, unspecified; F41.9 Anxiety disorder, unspecified; Z87.891 Personal history of nicotine dependence; Z79.82 Long term (current) use of aspirin; Z79.899 Other long term (current) drug therapy | CPT/HCPCS: 99283 ==

== ENCOUNTER 2019-12-30 09:31 | Emergency (ER) | payer OTHER | END 2019-12-30 09:47 | disposition home or self-care (01) | LOC: ERS 09:31 | DX: Z43.0 Encounter for attention to tracheostomy (principal); F32.9 Major depressive disorder, single episode, unspecified; J44.9 Chronic obstructive pulmonary disease, unspecified; G47.30 Sleep apnea, unspecified; E11.9 Type 2 diabetes mellitus without complications; E03.9 Hypothyroidism, unspecified; I10 Essential (primary) hypertension; I48.91 Unspecified atrial fibrillation; E87.6 Hypokalemia; K21.9 Gastro-esophageal reflux disease without esophagitis; K74.60 Unspecified cirrhosis of liver; D50.9 Iron deficiency anemia, unspecified; E66.01 Morbid (severe) obesity due to excess calories; E78.5 Hyperlipidemia, unspecified; F41.9 Anxiety disorder, unspecified; Z79.82 Long term (current) use of aspirin; Z79.01 Long term (current) use of anticoagulants; Z79.899 Other long term (current) drug therapy ==

== ENCOUNTER 2019-12-30 12:31 | Emergency (ER) | payer OTHER | END 2019-12-30 13:46 | LOC: ERS 12:31 | DX: Z43.0 Encounter for attention to tracheostomy (principal); E11.9 Type 2 diabetes mellitus without complications; E03.9 Hypothyroidism, unspecified; G47.33 Obstructive sleep apnea (adult) (pediatric); I10 Essential (primary) hypertension; I50.9 Heart failure, unspecified; I48.91 Unspecified atrial fibrillation; K21.9 Gastro-esophageal reflux disease without esophagitis; K74.60 Unspecified cirrhosis of liver; D50.9 Iron deficiency anemia, unspecified; E66.01 Morbid (severe) obesity due to excess calories; E87.6 Hypokalemia; J44.9 Chronic obstructive pulmonary disease, unspecified; Z87.891 Personal history of nicotine dependence; Z79.899 Other long term (current) drug therapy; Z79.01 Long term (current) use of anticoagulants; Z79.82 Long term (current) use of aspirin | CPT/HCPCS: 99283 ==

== ENCOUNTER 2020-01-02 09:37 | Emergency (ER) | payer OTHER | END 2020-01-02 14:32 | LOC: ERS 09:37 | DX: J95.03 Malfunction of tracheostomy stoma (principal); E11.9 Type 2 diabetes mellitus without complications; E03.9 Hypothyroidism, unspecified; J44.9 Chronic obstructive pulmonary disease, unspecified; G47.30 Sleep apnea, unspecified; I48.91 Unspecified atrial fibrillation; I11.0 Hypertensive heart disease with heart failure; I50.9 Heart failure, unspecified; K21.9 Gastro-esophageal reflux disease without esophagitis; E87.6 Hypokalemia; K74.60 Unspecified cirrhosis of liver; D50.9 Iron deficiency anemia, unspecified; E66.01 Morbid (severe) obesity due to excess calories; F41.9 Anxiety disorder, unspecified; Z87.891 Personal history of nicotine dependence; Z79.01 Long term (current) use of anticoagulants; Z79.82 Long term (current) use of aspirin; Z79.899 Other long term (current) drug therapy | CPT/HCPCS: 99283 ==

== ENCOUNTER 2020-01-28 18:03 | Emergency (ER) | payer OTHER | END 2020-01-28 20:00 | LOC: ERS 18:03 | DX: J95.03 Malfunction of tracheostomy stoma (principal); E11.9 Type 2 diabetes mellitus without complications; E03.9 Hypothyroidism, unspecified; E66.01 Morbid (severe) obesity due to excess calories; J44.9 Chronic obstructive pulmonary disease, unspecified; G47.33 Obstructive sleep apnea (adult) (pediatric); I48.91 Unspecified atrial fibrillation; I11.0 Hypertensive heart disease with heart failure; I50.30 Unspecified diastolic (congestive) heart failure; E78.5 Hyperlipidemia, unspecified; D50.9 Iron deficiency anemia, unspecified; F41.9 Anxiety disorder, unspecified; F32.9 Major depressive disorder, single episode, unspecified; Z87.891 Personal history of nicotine dependence; Z79.899 Other long term (current) drug therapy; Z79.82 Long term (current) use of aspirin | CPT/HCPCS: 99283 ==

== ENCOUNTER 2020-01-31 02:09 | Emergency (ER) | payer OTHER | END 2020-01-31 04:14 | LOC: ERS 02:09 | DX: J95.03 Malfunction of tracheostomy stoma (principal); E11.9 Type 2 diabetes mellitus without complications; E03.9 Hypothyroidism, unspecified; J44.9 Chronic obstructive pulmonary disease, unspecified; G47.33 Obstructive sleep apnea (adult) (pediatric); I48.91 Unspecified atrial fibrillation; I11.0 Hypertensive heart disease with heart failure; I50.9 Heart failure, unspecified; K21.9 Gastro-esophageal reflux disease without esophagitis; K74.60 Unspecified cirrhosis of liver; F41.9 Anxiety disorder, unspecified; E66.01 Morbid (severe) obesity due to excess calories; D50.9 Iron deficiency anemia, unspecified; E87.6 Hypokalemia; F32.9 Major depressive disorder, single episode, unspecified; Z79.899 Other long term (current) drug therapy; Z79.82 Long term (current) use of aspirin; Z79.01 Long term (current) use of anticoagulants | CPT/HCPCS: 99283 ==

== ENCOUNTER 2020-01-31 06:09 | Emergency (ER) | payer OTHER ==
--- NOTE | 2020-01-31 07:56 | RAD ---
XR Chest 1 View Portable HISTORY: Drug overdose, unresponsive COMPARISON: 06/18/2019 FINDINGS: A tracheostomy pubis present. The heart size is normal. There is mild prominence of the pul monary vascularity/interstitial markings. No lobar consolidation, pneumothoraces or pleural effusions are identified.
== END 2020-01-31 08:33 | disposition home or self-care (01) ==
LOC: ERS 06:09
DX: Z43.0 Encounter for attention to tracheostomy (principal); E11.9 Type 2 diabetes mellitus without complications; E03.9 Hypothyroidism, unspecified; J44.9 Chronic obstructive pulmonary disease, unspecified; G47.33 Obstructive sleep apnea (adult) (pediatric); I11.0 Hypertensive heart disease with heart failure; I50.9 Heart failure, unspecified; D50.9 Iron deficiency anemia, unspecified; E78.5 Hyperlipidemia, unspecified; E66.01 Morbid (severe) obesity due to excess calories; K21.9 Gastro-esophageal reflux disease without esophagitis; E87.6 Hypokalemia; F32.9 Major depressive disorder, single episode, unspecified; F41.9 Anxiety disorder, unspecified; Z87.891 Personal history of nicotine dependence; K74.60 Unspecified cirrhosis of liver; Z79.02 Long term (current) use of antithrombotics/antiplatelets; Z79.82 Long term (current) use of aspirin; Z79.899 Other long term (current) drug therapy; Z79.1 Long term (current) use of non-steroidal anti-inflammatories (NSAID); Z79.01 Long term (current) use of anticoagulants
CPT/HCPCS: 71045

== ENCOUNTER 2020-02-14 03:43 | Emergency (ER) | payer OTHER ==
--- NOTE | 2020-02-14 07:44 | RAD ---
EXAM: Single view of the chest HISTORY: Dislodgment of tracheostomy COMPARISON: 01/31/2020 FINDINGS: Single view of the chest shows an enlarged but stable cardiomediastinal silhouette. A trac heostomy is seen in good position with its tip overlying the trachea. Increased interstitial markings are stable. There is no evidence of consolidation, mass, or pleural effusion. The bones are unremarkable. IMPRESSION: Appropriate position of tracheostomy
== END 2020-02-14 05:20 ==
LOC: ERS 03:43
DX: J95.03 Malfunction of tracheostomy stoma (principal); E11.9 Type 2 diabetes mellitus without complications; E03.9 Hypothyroidism, unspecified; G47.33 Obstructive sleep apnea (adult) (pediatric); I48.91 Unspecified atrial fibrillation; K21.9 Gastro-esophageal reflux disease without esophagitis; K59.00 Constipation, unspecified; F32.9 Major depressive disorder, single episode, unspecified; Z87.891 Personal history of nicotine dependence; E66.01 Morbid (severe) obesity due to excess calories; I50.9 Heart failure, unspecified; F41.9 Anxiety disorder, unspecified; I11.0 Hypertensive heart disease with heart failure; J44.9 Chronic obstructive pulmonary disease, unspecified; Z79.899 Other long term (current) drug therapy; Z79.82 Long term (current) use of aspirin
CPT/HCPCS: 31502; 71045

== ENCOUNTER 2020-03-21 22:50 | Emergency (ER) | payer OTHER ==
[2020-03-21] MEDS ORDERED: Sodium Chloride For Inhalation 0.9% 3 ML NEB ONE ×2 (23:31→23:34)
== END 2020-03-21 23:58 ==
LOC: ERS 22:50
DX: R06.00 Dyspnea, unspecified (principal); E11.9 Type 2 diabetes mellitus without complications; E03.9 Hypothyroidism, unspecified; J44.9 Chronic obstructive pulmonary disease, unspecified; I11.9 Hypertensive heart disease without heart failure; I50.9 Heart failure, unspecified; E78.5 Hyperlipidemia, unspecified; Z87.891 Personal history of nicotine dependence; Z79.899 Other long term (current) drug therapy
CPT/HCPCS: 99284

== ENCOUNTER 2020-04-03 11:40 | Emergency (ER) | payer OTHER ==
--- NOTE | 2020-04-03 12:30 | RAD ---
RADIOGRAPH CHEST 1 VIEW: DATE: 04/03/2020 TIME: 12:17 PM HISTORY: 65-year-old female with dyspnea COMPARISON: 03/29/2020, 03/15/2020, and 01/31/2020 FINDINGS: Low lung volumes. Tracheostomy tube. Mild pulmonary parenchymal densities in perihilar left upper lob e and left lower lung zone, and to a lesser degree right perihilar upper lung zone. No pneumothorax. No effacement of lateral costophrenic angles. No interval change. IMPRESSION: 1) hypoinflated lungs. 2) nonspecific pulmonary parenchymal densities, mostly on the left side. 3) no interval change since 01/31/2020
[2020-04-03 12:45] LABS: #Lymphocytes 1.5 thou/uL (1.20-3.40); #Monocytes 0.9 thou/uL (0.11-0.59); #Neutrophils 4.1 thou/uL (1.40-6.50); %Basophils 0.1 % (0.0-1.0); %Eosinophils 0.6 % (0.0-10.0); %Lymphocytes 22.4 % (21.0-51.0); %Monocytes 13.3 % (0.0-10.0); %Neutrophils 63.6 % (42.0-75.0); Hemoglobin 14.1 g/dL (12.0-16.0); Mean Corpuscular HGB CONC 30.8 g/dL (32.0-36.0); Mean Corpuscular Hemoglobin 32.5 pg (27.0-31.0); Mean Platelet Volume 10.1 fL (7.4-10.4); Platelet Count 76 thou/uL (130-400); RBC Distribution Width 17.4 % (11.5-14.5); Red Blood Cell (RBC) Count 4.36 mill/uL (4.20-5.40); White Blood Cell (WBC) Count 6.5 thou/uL (4.8-10.8)
[2020-04-03 12:55] LABS: ALT (SGPT) 20 U/L (8-55); AST (SGOT) 38 U/L (5-34); Albumin 2.4 g/dL (3.4-4.8); Alkaline Phosphatase 155 U/L (40-110); Anion Gap 9 mmol/L (10-20); BUN (Urea Nitrogen) 18 mg/dL (9.8-20.1); Bilirubin, Total 1.8 mg/dL (0.2-1.2); Calc. Creatinine Clearance 0 mL/min (70-130); Calcium 7.9 mg/dL (7.8-10.44); Carbon Dioxide 36 mmol/L (23-31); Chloride 96 mmol/L (98-107); Estimated GFR-MDRD 65; Globulin 4.8 g/dL (2.4-3.5); Glucose 112 mg/dL (80-115); Potassium 3.2 mmol/L (3.5-5.1); Protein, Total 7.2 g/dL (6.0-8.3); Sodium 138 mmol/L (136-145)
[2020-04-03 13:00] LABS: Band 5 % (5-11); Lymphocytes 21 % (21-51); MDiff Complete? YES; Monocytes 7 % (0-10); Neutrophil 66 % (42-75); Nucleated RBC 1 % (0); Platelet Morphology Comment Appears Decreased; Polychromasia SLIGHT = 2-3 cells (100X) (0-2/hpf); Reactive Lymphocytes 1 % (0-10)
== END 2020-04-03 20:19 ==
LOC: ERS 11:40
DX: J18.9 Pneumonia, unspecified organism (principal); E66.01 Morbid (severe) obesity due to excess calories; E11.9 Type 2 diabetes mellitus without complications; E03.9 Hypothyroidism, unspecified; J44.9 Chronic obstructive pulmonary disease, unspecified; G47.30 Sleep apnea, unspecified; I10 Essential (primary) hypertension; I48.91 Unspecified atrial fibrillation; K21.9 Gastro-esophageal reflux disease without esophagitis; D50.9 Iron deficiency anemia, unspecified; F32.9 Major depressive disorder, single episode, unspecified; F41.9 Anxiety disorder, unspecified; Z87.891 Personal history of nicotine dependence; Z79.82 Long term (current) use of aspirin; Z79.899 Other long term (current) drug therapy
CPT/HCPCS: 36415; 71045; 80053; 85025; 93005

== ENCOUNTER 2020-04-14 21:17 | Emergency (ER) | payer OTHER | END 2020-04-14 23:45 | LOC: ERS 21:17 | DX: J95.03 Malfunction of tracheostomy stoma (principal); J44.9 Chronic obstructive pulmonary disease, unspecified; E03.9 Hypothyroidism, unspecified; I11.0 Hypertensive heart disease with heart failure; I50.30 Unspecified diastolic (congestive) heart failure; I48.91 Unspecified atrial fibrillation; F32.9 Major depressive disorder, single episode, unspecified; F41.9 Anxiety disorder, unspecified; E11.9 Type 2 diabetes mellitus without complications; K21.9 Gastro-esophageal reflux disease without esophagitis; Z87.891 Personal history of nicotine dependence | CPT/HCPCS: 99283 ==

== ENCOUNTER 2020-04-21 15:13 | Inpatient (IN) | payer OTHER ==
[2020-04-21 15:57] LABS: Hemoglobin 14.5 g/dL (12.0-16.0); Mean Corpuscular Hemoglobin 32.4 pg (27.0-31.0); Mean Platelet Volume 9.7 fL (7.4-10.4); Platelet Count 69 thou/uL (130-400); RBC Distribution Width 17.4 % (11.5-14.5); Red Blood Cell (RBC) Count 4.48 mill/uL (4.20-5.40); White Blood Cell (WBC) Count 6.4 thou/uL (4.8-10.8)
[2020-04-21 16:09] LABS: Anisocytosis SLIGHT = 6-15 cells (100X) (0-5/hpf); Band 7 % (5-11); Eosinophils 3 % (0-10); Lymphocytes 20 % (21-51); MDiff Complete? YES; Macrocytosis SLIGHT = 6-15 cells (100X) (0-5/hpf); Monocytes 8 % (0-10); Neutrophil 62 % (42-75); Platelet Morphology Comment Appears Decreased; Target Cells SLIGHT = 2-5 cells (100X) (0-1/hpf)
--- NOTE | 2020-04-21 16:12 | RAD ---
XR Chest 1 View Portable History: Pneumonia Comparison: Radiograph April 03, 2020 Findings: Abnormal upper lobe lingular left lower lobe airspace consolidation. Lungs are hypoinflated . Tracheostomy tube tip at the level of the clavicles. Heart size mildly enlarged. No acute osseous abnormality. Right upper quadrant surgical clips. Impression: Findings concerning for multifocal pneumonia.
[2020-04-21 16:13] LABS: ALT (SGPT) 31 U/L (8-55); AST (SGOT) 77 U/L (5-34); Albumin 1.9 g/dL (3.4-4.8); Alkaline Phosphatase 158 U/L (40-110); Anion Gap 14 mmol/L (10-20); BUN (Urea Nitrogen) 25 mg/dL (9.8-20.1); Bilirubin, Total 2.7 mg/dL (0.2-1.2); CK (CPK) 247 U/L (29-168); Calc. Creatinine Clearance 0 mL/min (70-130); Calcium 7.9 mg/dL (7.8-10.44); Carbon Dioxide 35 mmol/L (23-31); Chloride 95 mmol/L (98-107); Estimated GFR-MDRD 65; Globulin 4.8 g/dL (2.4-3.5); Glucose 97 mg/dL (80-115); Potassium 3.8 mmol/L (3.5-5.1); Protein, Total 6.7 g/dL (6.0-8.3); Sodium 140 mmol/L (136-145)
[2020-04-21 17:26] LABS: CKMB 1.6 ng/mL (0-6.6)
--- NOTE | 2020-04-21 18:09 | PDOC.FPRHP ---
- Allergies/Adverse Reactions Allergies Allergy/AdvReac Type Severity Reaction Status Date / Time Penicillins Allergy Intermediate Rash Verified 10/22/19 15:39 amoxicillin [Amoxicillin] Allergy Verified 10/22/19 15:39 - Home Medications Medication Instructions Recorded Confirmed Type Furosemide [Lasix] 80 mg PER TUBE DAILY 12/20/17 03/29/20 History Aspirin Chewable [Aspirin Chewable 81 mg PER TUBE QAM 04/09/18 03/29/20 History Tablet] Nystatin [Nystatin Powder] 1 g TOP DAILY 04/09/18 03/29/20 History Spironolactone [Aldactone] 12.5 mg PER TUBE QAM 04/09/18 03/29/20 History Potassium Chloride [K-Dur] 20 meq PO BID 08/09/18 03/29/20 History Acetaminophen [Tylenol Regular 650 mg PO Q6HR PRN 05/29/19 03/29/20 History Strength] Benzocaine (Dental) [Orajel 20% 1 applic TID PRN 05/29/19 03/29/20 History Maximum Strength] Escitalopram Oxalate 10 mg PER TUBE DAILY 05/29/19 03/29/20 History Famotidine 20 mg PER TUBE BID 05/29/19 03/29/20 History Gabapentin 300 mg PER TUBE BID 05/29/19 03/29/20 History Ipratropium/Albuterol Sulfate 1 inh NEB 0900,1300,1700,2100 05/29/19 03/29/20 History [Iprat-Albut 0.5-3(2.5) mg/3 ml] Simethicone 125 mg PO QID PRN 05/29/19 03/29/20 History Lactulose 20 gm PER TUBE BID udcup 06/05/19 03/29/20 Rx Levothyroxine Sodium [Synthroid] 150 mcg PER TUBE 0600 tab 06/05/19 03/29/20 Rx Levofloxacin [Levaquin Oral 500 mg PER TUBE DAILY #7 ml 04/01/20 Rx Solution] methylPREDNISolone [Medrol] 4 mg PO ASDIR #1 tab.ds.pk 04/01/20 Rx - History PMHx: PSHx: FHx: Social: - Vital signs BP: [] HR: [] RR: [] Tmax: [] Pox: []% on [] Wt: [] FMR H&P: Results - Labs Result Diagrams: 04/21/20 15:40 04/21/20 15:40 Lab results: WBC 6.4 thou/uL (4.8-10.8) 04/21/20 15:40 Hgb 14.5 g/dL (12.0-16.0) 04/21/20 15:40 Hct 46.9 % (36.0-47.0) 04/21/20 15:40 MCV 105.0 fL (78.0-98.0) H 04/21/20 15:40 Plt Count 69 thou/uL (130-400) L 04/21/20 15:40 Band Neuts % (Manual) 7 % (5-11) 04/21/20 15:40 Sodium 140 mmol/L (136-145) 04/21/20 15:40 Potassium 3.8 mmol/L (3.5-5.1) 04/21/20 15:40 Chloride 95 mmol/L (98-107) L 04/21/20 15:40 Carbon Dioxide 35 mmol/L (23-31) H 04/21/20 15:40 BUN 25 mg/dL (9.8-20.1) H 04/21/20 15:40 Creatinine 0.88 mg/dL (0.6-1.1) 04/21/20 15:40 Glucose 97 mg/dL (80-115) 04/21/20 15:40 Calcium 7.9 mg/dL (7.8-10.44) 04/21/20 15:40 Total Bilirubin 2.7 mg/dL (0.2-1.2) H 04/21/20 15:40 AST 77 U/L (5-34) H 04/21/20 15:40 ALT 31 U/L (8-55) 04/21/20 15:40 Alkaline Phosphatase 158 U/L (40-110) H 04/21/20 15:40 Creatine Kinase 247 U/L (29-168) H 04/21/20 15:40 CK-MB (CK-2) 1.6 ng/mL (0-6.6) 04/21/20 15:40 Serum Total Protein 6.7 g/dL (6.0-8.3) 04/21/20 15:40 Albumin 1.9 g/dL (3.4-4.8) L 04/21/20 15:40 FMR H&P: Upper Level - Plan Date/Time: 04/21/201808 I, [], have evaluated this patient and agree with findings/plan as outlined by hospital intern resident. Pertinent changes/additions are listed here.
[2020-04-21] MEDS ORDERED: Cefepime 2 GM VIAL ONE (18:24)
[2020-04-21] MEDS ORDERED: Vancomycin 1 GM/200 ML BAG ONE (19:04)
[2020-04-21 19:18] LABS: Bacteria/HPF 4+ HPF (None Seen); Bilirubin Negative (Negative); Blood, Urine 2+ (Negative); Clarity Turbid (Clear); Glucose, Urine (Dipstick) Normal (Negative); Ketone, Urine Negative (Negative); Leukocyte 500 Leu/uL (Negative); Nitrite Negative (Negative); Protein, Urine (Dipstick) 10 mg/dL (Neg-Trace); Renal Epithelial 0-3 HPF (None Seen); Specific Gravity, Urine 1.013 (1.002-1.036); Squamous Epithelial 0-3 HPF (0-3); Transitional Epithelial 0-3 HPF (None Seen); WBC/HPF Greater than 50 HPF (0-3); pH, Urine 7.5 (5.0-9.0)
[2020-04-21] MEDS ORDERED: Dextrose 5% in Water 1,000 ML IV PRN (20:31)
[2020-04-21] MEDS ORDERED: Labetalol HCl 100 MG/20 ML VIAL SLOW IVP PRN (20:31)
[2020-04-21] MEDS ORDERED: Benzonatate 100 MG CAP PO PRN (20:31)
[2020-04-21] MEDS ORDERED: HumaLOG 300 UNITS/3 ML VIAL SC PRN ×2 (20:31)
[2020-04-21] MEDS ORDERED: Acetaminophen 650 MG Suppository PR PRN (20:31)
[2020-04-21] MEDS ORDERED: Ondansetron PF 4 MG/2 ML Vial IVP PRN (20:31)
[2020-04-21] MEDS ORDERED: Sodium Chloride 0.9% 1,000 ML IV SCH (20:31)
[2020-04-21] MEDS ORDERED: Ondansetron ODT 4 MG TAB PO PRN (20:31)
[2020-04-21] MEDS ORDERED: Acetaminophen 500 MG TAB PO PRN (20:31)
[2020-04-21] MEDS: cefTRIAXone\\ROCEPHIN 2 GM in Sodium Chloride 0.9% 100 ML IVPB SCH (21:27)
[2020-04-21] MEDS: Famotidine/PF 20 mg/2ml Vial SLOW IVP SCH (21:27)
[2020-04-21 22:00] LABS: Troponin I 0.065 ng/mL (< 0.028)
--- NOTE | 2020-04-21 22:17 | HP ---
PRIMARY CARE PROVIDER: Dr. Saenz. CHIEF COMPLAINT: Altered mentation. HISTORY OF PRESENT ILLNESS: This is a 65-year-old female, who presents to [facility] Emergency Department in transfer from [facility], where the patient is a long-term resident. The patient was apparently not following commands in the fusion analyst hours at [facility] with a quoted baseline orientation x4. The patient apparently was unable to answer questions appropriately, was only oriented to self and did not communicate appropriately. The patient with long-standing chronic tracheostomy due to chronic respiratory failure, bed-bound and needing full care. Review of the electronic medical record shows the patient has been evaluated at [facility] 27 times in 2019. The patient was most recently admitted in March 2020 for tracheobronchitis. The patient has had multiple evaluations due to obstructed tracheostomy with suctioning and generally released from the [facility]. In the emergency room, the patient underwent general evaluation and was noted oriented to self and lethargic. The patient received IV cefepime, vancomycin, and intravenous normal saline x1 L after questionable sepsis criteria was met. The patient apparently was not noted more alert after receiving intravenous fluids. No specific tracheostomy obstruction was noted per ED reports. PAST MEDICAL HISTORY: 1. Chronic hypoxic respiratory failure with chronic tracheostomy. 2. Multiple ER evaluations and admissions due to obstructed tracheostomy. 3. Diabetes mellitus type 2. 4. Dysphagia, status post PEG tube placement. 5. Hepatic encephalopathy due to hepatic cirrhosis secondary to hepatitis C. 6. Obstructive sleep apnea. 7. Chronic atrial fibrillation. 8. Bed-bound status. 9. History of multiple admissions for pneumonia. 10. Chronic obstructive pulmonary disease. 11. Gastroesophageal reflux disease. 12. Morbid obesity. PAST SURGICAL HISTORY: 1. Status post tonsillectomy. 2. Status post tracheostomy. 3. Status post cholecystectomy. 4. Status post section. 5. Status post PEG tube placement. CURRENT MEDICATIONS: 1. Aldactone 12.5 mg per PEG tube q.a.m. 2. Enteric-coated aspirin 81 mg per PEG tube daily. 3. Lexapro 10 mg per PEG tube daily. 4. Pepcid 20 mg per PEG tube b.i.d. 5. Gabapentin 300 mg per PEG tube b.i.d. 6. DuoNeb 3 mL nebulized q.i.d. p.r.n. 7. Potassium chloride 20 mEq per PEG tube b.i.d. 8. Lasix 80 mg per PEG tube daily. 9. Orajel one application t.i.d. p.r.n. 10. Lactulose 20 g per PEG tube b.i.d. p.r.n. 11. Levothyroxine 150 mcg per PEG tube daily. ALLERGIES: TO PENICILLIN. FAMILY HISTORY: No inheritable diseases reported. SOCIAL HISTORY: Resides at [facility]. Bedbound status. Remote tobacco use. No alcohol or illicit drug use. REVIEW OF SYSTEMS: Unobtainable due to the patient's altered mental status and confusion. PHYSICAL EXAMINATION: VITAL SIGNS: On admission, blood pressure 114/70, pulse 96, respiratory rate 26, temperature 97.8 degrees Fahrenheit, and O2 saturation 96% on 4 L per oxygen by trach collar. GENERAL APPEARANCE: This is a 65-year-old female, ill appearing, alert, tracks with eyes and attempts to mouth words, in no acute distress. HEENT: Pupils are equal, round, and reactive to light and accommodation. Extraocular muscles are intact. No scleral icterus. No conjunctival injection. Nares, patent. OP is clear. Oral mucosa dry. NECK: Supple. Tracheostomy in place with trach collar noted. No thyromegaly. No nuchal rigidity. CHEST: Diminished breath sounds bilaterally with poor inspiratory effort. CARDIOVASCULAR: S1, S2 with tachycardia. No murmur, rub, or gallop noted. Distant heart sounds. ABDOMEN: Obese with PEG tube in place. Landmarks are difficult to palpate due to the patient's body habitus. No rebound or guarding noted. EXTREMITIES: Warm and dry with fair turgor. No cyanosis or asymmetric edema appreciated. Deformity of the left foot noted with decreased range of motion of bilateral ankle joints. Pulses are palpable distally at the dorsalis pedis, posterior tibial, and popliteal arteries bilaterally. Capillary refill less than 2 seconds. NEUROLOGIC: Alert and oriented to person. Attempts to mumble words. Tracks briefly to voice. Not ambulatory at baseline. Moves right upper extremity spontaneously. PERTINENT LABORATORY AND X-RAY FINDINGS: Sodium 140, potassium 3.8, chloride 95, CO2 of 35, BUN 25, creatinine 0.88, estimated GFR of 65, glucose 97, calcium 7.9, total bilirubin 2.7, AST 77, ALT of 31, alkaline phosphatase 158, total CK of 247. Troponin I 0.059. TSH 0.79. CBC showed a white blood cell count of 6.4, hemoglobin 14.5, hematocrit 47, MCV 105 with platelet count of 69, 62% neutrophils. Portable chest x-ray dated 04/21/2020, showed bilateral pulmonary infiltrates. Tracheostomy tube noted. EKG dated 04/21/2020, by my interpretation shows sinus tachycardia with heart rates in the low 100s. Attenuated R-waves noted in the precordial leads. Normal axis. No acute ST-T wave changes appreciated. ASSESSMENT AND PLAN: 1. Bilateral pneumonia, suspected given changes on chest imaging. We will continue Rocephin 2 g IV q.24 hours with additional Levaquin 750 mg IV daily. Blood cultures pending x2. Continue general pulmonary supportive management. Consult Pulmonology Service in the a.m. given the patient's longstanding chronic respiratory failure and tracheostomy. 2. Chronic hypoxic respiratory failure with chronic tracheostomy. Consult Pulmonology Service in the a.m. as described in #1. General pulmonary supportive management. Trach suctioning per protocol. 3. Systemic inflammatory response syndrome. Continue management as outlined previously. Continue IV fluids with normal saline at 75 mL/h. 4. Acute metabolic encephalopathy, recurrent and suspected multifactorial. Check ammonia level now. Continue supportive management as outlined previously. Suspect multifactorial process. 5. Chronic hepatitis C. Continue supportive management. Lactulose as needed. Check ammonia level currently. Repeat LFTs in the a.m. 6. Prophylaxis. SCDs while in bed. Pepcid 20 mg IV b.i.d. General tracheostomy care. 7. Code status is full. Surrogate medical decision maker is the patient's son. Job ID: [id number]
[2020-04-21 22:33] VITALS: BMI 49.2
[2020-04-22 04:31] LABS: ALT (SGPT) 33 U/L (8-55); AST (SGOT) 82 U/L (5-34); Albumin 1.7 g/dL (3.4-4.8); Alkaline Phosphatase 131 U/L (40-110); Anion Gap 15 mmol/L (10-20); BUN (Urea Nitrogen) 24 mg/dL (9.8-20.1); Bilirubin, Total 2.5 mg/dL (0.2-1.2); CK (CPK) 466 U/L (29-168); Calc. Creatinine Clearance 142 mL/min (70-130); Calcium 7.5 mg/dL (7.8-10.44); Carbon Dioxide 31 mmol/L (23-31); Chloride 99 mmol/L (98-107); Estimated GFR-MDRD 75; Globulin 4.4 g/dL (2.4-3.5); Glucose 66 mg/dL (80-115); Potassium 3.7 mmol/L (3.5-5.1); Protein, Total 6.1 g/dL (6.0-8.3); Sodium 141 mmol/L (136-145)
[2020-04-22 05:20] LABS: Anisocytosis SLIGHT = 6-15 cells (100X) (0-5/hpf); Band 13 % (5-11); Eosinophils 3 % (0-10); Lymphocytes 15 % (21-51); MDiff Complete? YES; Mean Corpuscular HGB CONC 31.4 g/dL (32.0-36.0); Mean Corpuscular Hemoglobin 32.3 pg (27.0-31.0); Mean Platelet Volume 8.6 fL (7.4-10.4); Monocytes 10 % (0-10); Neutrophil 59 % (42-75); Platelet Count 55 thou/uL (130-400); Platelet Morphology Comment Appears Decreased; RBC Distribution Width 17.2 % (11.5-14.5); Red Blood Cell (RBC) Count 4.32 mill/uL (4.20-5.40); Target Cells SLIGHT = 2-5 cells (100X) (0-1/hpf); White Blood Cell (WBC) Count 6.7 thou/uL (4.8-10.8)
[2020-04-22] MEDS ORDERED: Dextrose 5 % And 0.9 % NaCl 1,000 ML IV SCH (05:30)
[2020-04-22] MEDS ORDERED: Prevnar 13-Val Conj/PF 0.5 ML SYRINGE IM ONE (09:00)
[2020-04-22] MEDS: Famotidine/PF 20 mg/2ml Vial SLOW IVP SCH ×2 (09:42→21:08)
--- NOTE | 2020-04-22 10:20 | PDOC.HOSPP ---
- Subjective Encounter Date: 04/22/20 Encounter Time: 10:15 Subjective: f/u for suspected PNA in context of chronic hypoxic resp failure with trach. Receiving Levaquin/Rocephin currently. - Objective Vital Signs & Weight: Vital Signs (12 hours) Temp Pulse Resp BP Pulse Ox 04/22/20 08:05 97.7 F 77 16 104/71 96 04/22/20 06:59 96 04/22/20 03:58 97.9 F 76 18 101/61 96 04/22/20 01:43 98 Weight Weight 269 lb 4.8 oz I&O: 04/21/20 04/22/20 04/23/20 06:59 06:59 06:59 Intake Total 950 Output Total 200 Balance 750 Result Diagrams: 04/22/20 04:02 04/22/20 04:02 Additional Labs: Accuchecks 04/21/20 21:44 POC Glucose 84 Microbiology 04/21/20 19:55 Nasopharynx Influenza Types A,B Direct EIA - Final 04/21/20 18:18 Venous blood - Right Arm Blood Culture - Preliminary Specimen has been received and culture in progress. No Growth to date. 04/21/20 17:44 Venous blood - Right Hand Blood Culture - Preliminary Specimen has been received and culture in progress. No Growth to date. 11/21/18 16:08 Urine Straight Catheter Urine Culture - Preliminary Presumptive Escherichia coli Gram Negative Erich 11/21/18 16:08 Urine Straight Catheter Urine Culture - Preliminary Presumptive Escherichia coli Laboratory Tests 04/21/20 04/21/20 04/21/20 15:40 15:40 15:40 Plt Count 69 L Creatinine 0.88 Total Bilirubin 2.7 H AST 77 H Ammonia Creatine Kinase 247 H Troponin I 0.059 H Albumin Vitamin B12 Folate TSH 3rd Generation 04/21/20 04/21/20 04/21/20 15:40 21:25 21:25 Plt Count Creatinine Total Bilirubin AST Ammonia 78 H Creatine Kinase Troponin I 0.065 H Albumin Vitamin B12 Folate TSH 3rd Generation 0.7931 04/22/20 04/22/20 04/22/20 04:02 04:02 04:02 Plt Count Creatinine Total Bilirubin AST 82 H Ammonia Creatine Kinase 466 H Troponin I 0.050 H Albumin 1.7 L Vitamin B12 Folate 7.50 TSH 3rd Generation 04/22/20 04:02 Plt Count Creatinine Total Bilirubin AST Ammonia Creatine Kinase Troponin I Albumin Vitamin B12 Greater than 2000 H Folate TSH 3rd Generation EKG Reviewed by me: Yes (Tele - SR) Hospitalist ROS - Medication Medications: Active Medications Generic Name Dose Route Start Last Admin Trade Name Rama PRN Reason Stop Dose Admin Famotidine 20 mg 04/21/20 21:00 04/22/20 09:42 Famotidine/Pf 20 Mg/2ml Vial SLOW IVP 20 mg Q12HR SAMIRA Administration Ceftriaxone Sodium 2 gm/ 100 mls @ 200 mls/hr 04/21/20 21:00 04/21/20 21:27 Sodium Chloride IVPB 100 mls Q24HR SAMIRA Administration Levofloxacin 750 mg/ Device 150 mls @ 100 mls/hr 04/21/20 22:00 04/21/20 21:27 IVPB 150 mls Q24HR SAMIRA Administration Dextrose/Sodium Chloride 1,000 mls @ 100 mls/hr 04/22/20 05:30 04/22/20 05:41 D5 0.9% Ns IV 1,000 mls .Q10H SAMIRA Administration Sodium Chloride 10 ml 04/21/20 21:00 04/22/20 09:42 Flush - Normal Saline 10 Ml Syringe IVF 10 ml Q12HR SAMIRA Administration - Exam General Appearance: awake alert General - other findings: mouths words slowly, track Eye: PERRL, anicteric sclera ENT: normocephalic atraumatic, no oropharyngeal lesions, dry oral mucosa Neck: supple, symmetric, no JVD, no thyromegaly, no lymphadenopathy Heart: RRR, no gallops, no rubs, normal peripheral pulses Heart - other findings: S1, S2 Respiratory: no wheezes, rhonchi Respiratory - other findings: diminished in bases Gastrointestinal: soft, non-tender, non-distended, normal bowel sounds, no palpable masses Gastrointestinal - other findings: PEG in place, black in appearance Extremities: no cyanosis, no clubbing, no edema Skin: normal turgor Skin - other findings: chronic changes of BLE's Neurological: cranial nerve grossly intact, no new deficit Neurological - other findings: mumbles a few words Musculoskeletal: generalized weakness Psychiatric: oriented to person, flat affect Hosp A/P (1) Bacterial pneumonia Code(s): J15.9 - UNSPECIFIED BACTERIAL PNEUMONIA Status: Acute Plan: Suspected, continue Rocephin/Levaquin, general pulmonary support, O2 support with trach (2) SIRS (systemic inflammatory response syndrome) Code(s): R65.10 - SIRS OF NON-INFECTIOUS ORIGIN W/O ACUTE ORGAN DYSFUNCTION Status: Acute Plan: Resolving with IV abx, continue clinical monitoring (3) Chronic respiratory failure with hypoxia Code(s): J96.11 - CHRONIC RESPIRATORY FAILURE WITH HYPOXIA Status: Chronic Plan: Continue tracheostomy care, T-collar with O2 support (4) Cirrhosis of liver Code(s): K74.60 - UNSPECIFIED CIRRHOSIS OF LIVER Status: Chronic Qualifiers: Hepatic cirrhosis type: unspecified hepatic cirrhosis Ascites presence: without ascites Qualified Code(s): K74.60 - Unspecified cirrhosis of liver Plan: chronic, supportive mgmt, compensated currently (5) Hypothyroidism Code(s): E03.9 - HYPOTHYROIDISM, UNSPECIFIED Status: Chronic Plan: Resume home Levothyroxine (6) Macrocytic anemia Code(s): D53.9 - NUTRITIONAL ANEMIA, UNSPECIFIED Status: Chronic Plan: Stable H/H currently (7) Obesity, morbid Code(s): E66.01 - MORBID (SEVERE) OBESITY DUE TO EXCESS CALORIES Status: Chronic (8) Severe muscle deconditioning Code(s): R29.898 - OT SYMPTOMS AND SIGNS INVOLVING THE MUSCULOSKELETAL SYSTEM Status: Chronic - Plan continue antibiotics, child welfare social worker, speech therapy, respiratory therapy, DVT proph w/SCDs Continue supportive mgmt continue Rocephin/Levaquin Continue IVF's D5 NS @ 125ml/h Await final Ucx/Blood cx results Dietitian consult ROUTE CLERK monitoring for safe po intake AM lab: CMP, CBC, CPK
[2020-04-22] MEDS ORDERED: Polyethylene Glycol 3350 17 GM Packet PER TUBE PRN (10:40)
[2020-04-22] MEDS ORDERED: ALPRAZolam 0.5 MG TAB PO PRN (10:40)
[2020-04-22] MEDS: Dextrose 5 % And 0.9 % NaCl 1,000 ML IV SCH ×2 (12:15→19:16)
[2020-04-22 13:28] LABS: SARS-CoV-2 MS2 Positive; SARS-CoV-2 N Gene Negative; SARS-CoV-2 S Gene Negative; SARS-CoV-2 by NAA Not Detected (NotDetected); SARS-CoV-2 orf1ab Negative
[2020-04-22] MEDS: cefTRIAXone\\ROCEPHIN 2 GM in Sodium Chloride 0.9% 100 ML IVPB SCH (21:08)
[2020-04-22] MEDS: Gabapentin 300 MG CAP PO SCH (21:10)
[2020-04-22] MEDS: Nystatin Powder 15 GM BOT TOP SCH (22:14)
[2020-04-23] MEDS: Dextrose 5 % And 0.9 % NaCl 1,000 ML IV SCH ×5 (03:41→22:25)
[2020-04-23 04:56] LABS: Band 10 % (5-11); Hemoglobin 14.2 g/dL (12.0-16.0); Lymphocytes 17 % (21-51); MDiff Complete? YES; Mean Corpuscular HGB CONC 31.6 g/dL (32.0-36.0); Mean Corpuscular Hemoglobin 32.7 pg (27.0-31.0); Mean Platelet Volume 11.1 fL (7.4-10.4); Monocytes 9 % (0-10); Neutrophil 63 % (42-75); Platelet Count 46 thou/uL (130-400); Platelet Morphology Comment Appears Decreased; RBC Distribution Width 17.5 % (11.5-14.5); Red Blood Cell (RBC) Count 4.34 mill/uL (4.20-5.40); White Blood Cell (WBC) Count 6.4 thou/uL (4.8-10.8)
[2020-04-23] MEDS: Levothyroxine Sodium 100 MCG TAB PER TUBE SCH (05:19)
[2020-04-23 06:31] LABS: ALT (SGPT) 36 U/L (8-55); AST (SGOT) 108 U/L (5-34); Albumin 1.8 g/dL (3.4-4.8); Alkaline Phosphatase 123 U/L (40-110); BUN (Urea Nitrogen) 25 mg/dL (9.8-20.1); CK (CPK) 668 U/L (29-168); Calc. Creatinine Clearance 131 mL/min (70-130); Carbon Dioxide 30 mmol/L (23-31); Estimated GFR-MDRD 68; Globulin 4.2 g/dL (2.4-3.5); Glucose 103 mg/dL (80-115)
[2020-04-23 06:38] LABS: Calcium 7.5 mg/dL (7.8-10.44)
[2020-04-23 06:39] LABS: Anion Gap 14 mmol/L (10-20); Bilirubin, Total 1.9 mg/dL (0.2-1.2); Chloride 103 mmol/L (98-107); Potassium 3.7 mmol/L (3.5-5.1); Sodium 143 mmol/L (136-145)
[2020-04-23] MEDS: Famotidine/PF 20 mg/2ml Vial SLOW IVP SCH ×2 (09:50→21:30)
[2020-04-23] MEDS: Aspirin Chewable 81 MG TAB PER TUBE SCH (09:50)
[2020-04-23] MEDS: Gabapentin 300 MG CAP PO SCH ×2 (09:50→21:30)
[2020-04-23] MEDS: Nystatin Powder 15 GM BOT TOP SCH ×2 (09:51→21:36)
--- NOTE | 2020-04-23 12:20 | PDOC.HOSPP ---
- Subjective Encounter Date: 04/23/20 Encounter Time: 12:10 Subjective: f/u for suspected PNA/UTI with UCx showing proteus spp. Blood cx showing staph spp in 2/2 samples. No fever reported. Pt preferring to eat by mouth and not through PEG tube. - Objective Vital Signs & Weight: Vital Signs (12 hours) Temp Pulse Resp BP Pulse Ox 04/23/20 11:43 98.3 F 70 21 H 118/75 04/23/20 08:00 97.7 F 77 20 121/69 96 04/23/20 07:04 90 L 04/23/20 07:03 72 16 90 L 04/23/20 03:11 98.1 F 68 18 107/59 L 96 Weight Admit Weight 269 lb 4.8 oz Weight 269 lb 4.8 oz I&O: 04/22/20 04/23/20 04/24/20 06:59 06:59 06:59 Intake Total 950 2155 Output Total 200 280 Balance 750 1875 Result Diagrams: 04/23/20 04:06 04/23/20 06:09 Additional Labs: Accuchecks 04/23/20 04/23/20 04/22/20 10:51 05:34 20:25 POC Glucose 94 79 111 H 04/22/20 16:35 POC Glucose 82 Microbiology 04/21/20 19:55 Nasopharynx Influenza Types A,B Direct EIA - Final 04/21/20 18:20 Urine Straight Catheter Urine Culture - Final Proteus mirabilis 04/21/20 18:18 Venous blood - Right Arm Blood Culture - Preliminary Specimen has been received and culture in progress. No Growth to date. 04/21/20 18:18 Venous blood - Right Arm Blood Culture - Preliminary Coagulase Neg Staphylococcus 04/21/20 17:44 Venous blood - Right Hand Blood Culture - Preliminary Specimen has been received and culture in progress. No Growth to date. 04/21/20 17:44 Venous blood - Right Hand Blood Culture - Preliminary Gram Positive Cocci 11/21/18 16:08 Urine Straight Catheter Urine Culture - Preliminary Presumptive Escherichia coli Gram Negative Erich 11/21/18 16:08 Urine Straight Catheter Urine Culture - Preliminary Presumptive Escherichia coli Laboratory Tests 04/21/20 04/21/20 04/21/20 15:40 15:40 15:40 Plt Count 69 L Creatinine 0.88 Total Bilirubin 2.7 H AST 77 H Ammonia Creatine Kinase 247 H Troponin I 0.059 H Albumin Vitamin B12 Folate TSH 3rd Generation 04/21/20 04/21/20 04/21/20 15:40 21:25 21:25 Plt Count Creatinine Total Bilirubin AST Ammonia 78 H Creatine Kinase Troponin I 0.065 H Albumin Vitamin B12 Folate TSH 3rd Generation 0.7931 04/22/20 04/22/20 04/22/20 04:02 04:02 04:02 Plt Count Creatinine Total Bilirubin AST 82 H Ammonia Creatine Kinase 466 H Troponin I 0.050 H Albumin 1.7 L Vitamin B12 Folate 7.50 TSH 3rd Generation 04/22/20 04/23/20 04:02 06:09 Plt Count Creatinine Total Bilirubin 1.9 H AST 108 H Ammonia Creatine Kinase 668 H Troponin I Albumin Vitamin B12 Greater than 2000 H Folate TSH 3rd Generation Radiology Reviewed by me: Yes EKG Reviewed by me: Yes (Tele - SR) Hospitalist ROS - Medication Medications: Active Medications Generic Name Dose Route Start Last Admin Trade Name Freq PRN Reason Stop Dose Admin Albuterol/Ipratropium 3 ml 04/22/20 13:00 04/23/20 07:03 Ipratropium/Albuterol Sulfate 3 Ml Neb NEB 3 ml 0900,1300,1700,2100 SAMIRA Administration Aspirin 81 mg 04/23/20 09:00 04/23/20 09:50 Aspirin Chewable 81 Mg Tab PER TUBE 81 mg QAM SAMIRA Administration Famotidine 20 mg 04/21/20 21:00 04/23/20 09:50 Famotidine/Pf 20 Mg/2ml Vial SLOW IVP 20 mg Q12HR SAMIRA Administration Gabapentin 300 mg 04/22/20 21:00 04/23/20 09:50 Gabapentin 300 Mg Cap PO 300 mg BID SAMIRA Administration Ceftriaxone Sodium 2 gm/ 100 mls @ 200 mls/hr 04/21/20 21:00 04/22/20 21:08 Sodium Chloride IVPB 100 mls Q24HR SAMIRA Administration Levofloxacin 750 mg/ Device 150 mls @ 100 mls/hr 04/21/20 22:00 04/22/20 22:14 IVPB 150 mls Q24HR SAMIRA Administration Dextrose/Sodium Chloride 1,000 mls @ 125 mls/hr 04/22/20 10:28 04/23/20 09:40 D5 0.9% Ns IV 1,000 mls .Q8H SAMIRA Administration Levothyroxine Sodium 137 mcg 04/23/20 06:00 04/23/20 05:19 Levothyroxine Sodium 100 Mcg Tab PER TUBE 137 mcg 0600 SAMIRA Administration Nystatin 0 gm 04/22/20 21:00 04/23/20 09:51 Nystatin Powder 15 Gm Bot TOP 1 applic BID SAMIRA Administration Sertraline HCl 100 mg 04/23/20 09:00 04/23/20 09:50 Sertraline Hcl 100 Mg Tab PER TUBE 100 mg DAILY SAMIRA Administration Sodium Chloride 10 ml 04/21/20 21:00 04/23/20 09:51 Flush - Normal Saline 10 Ml Syringe IVF 10 ml Q12HR SAMIRA Administration - Exam General Appearance: NAD, awake alert Eye: PERRL, anicteric sclera ENT: normocephalic atraumatic, no oropharyngeal lesions Neck: supple, symmetric, no JVD, no thyromegaly, no lymphadenopathy Neck - other findings: trach in place with T-collar Heart: RRR, no gallops, no rubs, normal peripheral pulses Heart - other findings: S1, S2 Respiratory: tachypneic Respiratory - other findings: diminished in bases Gastrointestinal: soft, non-tender, non-distended, normal bowel sounds, no palpable masses Gastrointestinal - other findings: PEG in place Extremities: no cyanosis, 1+ LE edema Skin: normal turgor Neurological: cranial nerve grossly intact, no new deficit Musculoskeletal: generalized weakness Psychiatric: oriented to person, oriented to time Hosp A/P (1) UTI (urinary tract infection) Status: Acute Qualifiers: Urinary tract infection type: acute cystitis Hematuria presence: without hematuria Qualified Code(s): N30.00 - Acute cystitis without hematuria Plan: Proteus spp isolated, continue Rocephin (2) Bacteremia Code(s): R78.81 - BACTEREMIA Status: Acute Plan: Suspected, 2/2 blood cx with gm + cocci, continue current IV abx regimen and monitor clinical response (3) Bacterial pneumonia Code(s): J15.9 - UNSPECIFIED BACTERIAL PNEUMONIA Status: Acute Plan: Suspected, continue Levaquin/Rocephin, pulmonary supportive mgmt (4) SIRS (systemic inflammatory response syndrome) Code(s): R65.10 - SIRS OF NON-INFECTIOUS ORIGIN W/O ACUTE ORGAN DYSFUNCTION Status: Acute (5) Chronic respiratory failure with hypoxia Code(s): J96.11 - CHRONIC RESPIRATORY FAILURE WITH HYPOXIA Status: Chronic (6) Cirrhosis of liver Code(s): K74.60 - UNSPECIFIED CIRRHOSIS OF LIVER Status: Chronic Qualifiers: Hepatic cirrhosis type: unspecified hepatic cirrhosis Ascites presence: without ascites Qualified Code(s): K74.60 - Unspecified cirrhosis of liver (7) Hypothyroidism Code(s): E03.9 - HYPOTHYROIDISM, UNSPECIFIED Status: Chronic (8) Macrocytic anemia Code(s): D53.9 - NUTRITIONAL ANEMIA, UNSPECIFIED Status: Chronic (9) Obesity, morbid Code(s): E66.01 - MORBID (SEVERE) OBESITY DUE TO EXCESS CALORIES Status: Chronic (10) Severe muscle deconditioning Code(s): R29.898 - OTH SYMPTOMS AND SIGNS INVOLVING THE MUSCULOSKELETAL SYSTEM Status: Chronic - Plan continue antibiotics, PT/OT, social work specialist, speech therapy, respiratory therapy, DVT proph w/SCDs Continue supportive mgmt continue Rocephin/Levaquin Decrease IVF's 75ml/h Dietitian/[employer]IVER consult appreciated Start po intake today AM lab: CPK Likely d/c in 24-48h
[2020-04-23] MEDS: cefTRIAXone\\ROCEPHIN 2 GM in Sodium Chloride 0.9% 100 ML IVPB SCH (21:49)
[2020-04-24] MEDS: Levothyroxine Sodium 100 MCG TAB PER TUBE SCH (06:02)
[2020-04-24] MEDS: Gabapentin 300 MG CAP PO SCH ×2 (09:19→21:30)
[2020-04-24] MEDS: Famotidine/PF 20 mg/2ml Vial SLOW IVP SCH ×2 (09:19→21:26)
[2020-04-24] MEDS: Aspirin Chewable 81 MG TAB PER TUBE SCH (09:19)
[2020-04-24] MEDS: Nystatin Powder 15 GM BOT TOP SCH ×2 (09:22→21:27)
--- NOTE | 2020-04-24 12:35 | PDOC.HOSPP ---
- Subjective Encounter Date: 04/24/20 Encounter Time: 12:30 Subjective: f/u for sepsis/PNA/UTI and bacteremia with staph spp including MRSE. Receiving Rocephin/Levaquin currently. No new complaints, fever. - Objective Vital Signs & Weight: Vital Signs (12 hours) Temp Pulse Resp BP Pulse Ox 04/24/20 11:25 98.7 F 71 19 113/56 L 97 04/24/20 08:00 98.8 F 80 19 109/60 93 L 04/24/20 05:06 88 20 91 L 04/24/20 04:30 98.4 F 96 20 112/58 L 91 L Weight Admit Weight 269 lb 4.8 oz Weight 269 lb 4.8 oz I&O: 04/23/20 04/24/20 04/25/20 06:59 06:59 06:59 Intake Total 2155 3303 Output Total 280 550 Balance 1875 2753 Result Diagrams: 04/23/20 04:06 04/23/20 06:09 Additional Labs: Accuchecks 04/24/20 04/24/20 04/23/20 10:46 05:31 20:29 POC Glucose 108 H 76 108 H 04/23/20 16:58 POC Glucose 105 H Microbiology 04/21/20 19:55 Nasopharynx Influenza Types A,B Direct EIA - Final 04/21/20 18:20 Urine Straight Catheter Urine Culture - Final Proteus mirabilis 04/21/20 18:18 Venous blood - Right Arm Blood Culture - Preliminary Specimen has been received and culture in progress. No Growth to date. 04/21/20 18:18 Venous blood - Right Arm Blood Culture - Preliminary Coagulase Neg Staphylococcus 04/21/20 17:44 Venous blood - Right Hand Blood Culture - Preliminary Specimen has been received and culture in progress. No Growth to date. 04/21/20 17:44 Venous blood - Right Hand Blood Culture - Preliminary Gram Positive Cocci 11/21/18 16:08 Urine Straight Catheter Urine Culture - Preliminary Presumptive Escherichia coli Gram Negative Erich 11/21/18 16:08 Urine Straight Catheter Urine Culture - Preliminary Presumptive Escherichia coli Laboratory Tests 04/21/20 04/21/20 04/21/20 15:40 15:40 15:40 Plt Count 69 L Creatinine 0.88 Total Bilirubin 2.7 H AST 77 H Ammonia Creatine Kinase 247 H Troponin I 0.059 H Albumin Vitamin B12 Folate TSH 3rd Generation 04/21/20 04/21/20 04/21/20 15:40 21:25 21:25 Plt Count Creatinine Total Bilirubin AST Ammonia 78 H Creatine Kinase Troponin I 0.065 H Albumin Vitamin B12 Folate TSH 3rd Generation 0.7931 04/22/20 04/22/20 04/22/20 04:02 04:02 04:02 Plt Count Creatinine Total Bilirubin AST 82 H Ammonia Creatine Kinase 466 H Troponin I 0.050 H Albumin 1.7 L Vitamin B12 Folate 7.50 TSH 3rd Generation 04/22/20 04/23/20 04:02 06:09 Plt Count Creatinine Total Bilirubin 1.9 H AST 108 H Ammonia Creatine Kinase 668 H Troponin I Albumin Vitamin B12 Greater than 2000 H Folate TSH 3rd Generation EKG Reviewed by me: Yes (Tele - SR) Hospitalist ROS - Medication Medications: Active Medications Generic Name Dose Route Start Last Admin Trade Name Freq PRN Reason Stop Dose Admin Albuterol/Ipratropium 3 ml 04/22/20 13:00 04/24/20 05:06 Ipratropium/Albuterol Sulfate 3 Ml Neb NEB 3 ml 0900,1300,1700,2100 SAMIRA Administration Aspirin 81 mg 04/23/20 09:00 04/24/20 09:19 Aspirin Chewable 81 Mg Tab PER TUBE 81 mg QAM SAMIRA Administration Famotidine 20 mg 04/21/20 21:00 04/24/20 09:19 Famotidine/Pf 20 Mg/2ml Vial SLOW IVP 20 mg Q12HR SAMIRA Administration Gabapentin 300 mg 04/22/20 21:00 04/24/20 09:19 Gabapentin 300 Mg Cap PO 300 mg BID SAMIRA Administration Ceftriaxone Sodium 2 gm/ 100 mls @ 200 mls/hr 04/21/20 21:00 04/23/20 21:49 Sodium Chloride IVPB 100 mls Q24HR SAMIRA Administration Dextrose/Sodium Chloride 1,000 mls @ 75 mls/hr 04/23/20 12:40 04/23/20 22:25 D5 0.9% Ns IV 1,000 mls .[id number] SAMIRA Administration Levothyroxine Sodium 137 mcg 04/23/20 06:00 04/24/20 06:02 Levothyroxine Sodium 100 Mcg Tab PER TUBE 137 mcg 0600 SAMIRA Administration Nystatin 0 gm 04/22/20 21:00 04/24/20 09:22 Nystatin Powder 15 Gm Bot TOP 1 applic BID SAMIRA Administration Sertraline HCl 100 mg 04/23/20 09:00 04/24/20 09:19 Sertraline Hcl 100 Mg Tab PER TUBE 100 mg DAILY SAMIRA Administration Sodium Chloride 10 ml 04/21/20 21:00 04/23/20 22:26 Flush - Normal Saline 10 Ml Syringe IVF Not Given Q12HR SAMIRA - Exam General - other findings: somnolent but opens eyes to name Eye: PERRL, anicteric sclera ENT: normocephalic atraumatic, no oropharyngeal lesions Neck: supple, symmetric, no JVD, no thyromegaly, no lymphadenopathy Neck - other findings: Trach in place Heart: RRR, no gallops, no rubs, normal peripheral pulses Heart - other findings: S1, S2 Respiratory - other findings: diminished bilat, few scattered coarse sounds Gastrointestinal: soft, non-tender, non-distended, normal bowel sounds Gastrointestinal - other findings: obese, PEG in place Extremities: no cyanosis, no clubbing, no edema Skin: normal turgor Neurological: no new deficit Neurological - other findings: opens eyes to name, attempts to mouth a few words Musculoskeletal: generalized weakness Musculoskeletal - other findings: bed-bound at baseline Psychiatric: oriented to person, oriented to place, flat affect Hosp A/P (1) UTI (urinary tract infection) Status: Acute Qualifiers: Urinary tract infection type: acute cystitis Hematuria presence: without hematuria Qualified Code(s): N30.00 - Acute cystitis without hematuria Plan: Proteus spp, continue Rocephin another 24h then convert to Omnicef (2) Bacteremia Code(s): R78.81 - BACTEREMIA Status: Acute Plan: MRSE and staph spp, ? pathogen or colonization, start Zithromax 250mg daily (3) Bacterial pneumonia Code(s): J15.9 - UNSPECIFIED BACTERIAL PNEUMONIA Status: Acute (4) SIRS (systemic inflammatory response syndrome) Code(s): R65.10 - SIRS OF NON-INFECTIOUS ORIGIN W/O ACUTE ORGAN DYSFUNCTION Status: Acute (5) Chronic respiratory failure with hypoxia Code(s): J96.11 - CHRONIC RESPIRATORY FAILURE WITH HYPOXIA Status: Chronic (6) Cirrhosis of liver Code(s): K74.60 - UNSPECIFIED CIRRHOSIS OF LIVER Status: Chronic Qualifiers: Hepatic cirrhosis type: unspecified hepatic cirrhosis Ascites presence: without ascites Qualified Code(s): K74.60 - Unspecified cirrhosis of liver (7) Hypothyroidism Code(s): E03.9 - HYPOTHYROIDISM, UNSPECIFIED Status: Chronic (8) Macrocytic anemia Code(s): D53.9 - NUTRITIONAL ANEMIA, UNSPECIFIED Status: Chronic (9) Obesity, morbid Code(s): E66.01 - MORBID (SEVERE) OBESITY DUE TO EXCESS CALORIES Status: Chronic (10) Severe muscle deconditioning Code(s): R29.898 - [facility] SYMPTOMS AND SIGNS INVOLVING THE MUSCULOSKELETAL SYSTEM Status: Chronic - Plan continue antibiotics, PT/OT, group social worker, speech therapy, respiratory therapy, DVT proph w/SCDs Continue supportive mgmt continue Rocephin Start Zithromax 250mg daily Decrease IVF's 75ml/h Dietitian/NEEDLE LOOM OPERATOR consult appreciated Start po intake today, monitor % eaten AM lab: CPK Likely d/c in 24-48h
[2020-04-24] MEDS: Azithromycin 200 MG/5 ML Oral Suspension PO SCH (14:25)
[2020-04-24] MEDS: Dextrose 5 % And 0.9 % NaCl 1,000 ML IV SCH (16:06)
[2020-04-24] MEDS: cefTRIAXone\\ROCEPHIN 2 GM in Sodium Chloride 0.9% 100 ML IVPB SCH (21:10)
[2020-04-25] MEDS ORDERED: Metoprolol Tartrate 5 MG/5 ML VIAL IVP PRN (03:20)
[2020-04-25] MEDS ORDERED: Metoprolol Tartrate 5 MG/5 ML VIAL IVP SCH (03:58)
[2020-04-25 05:30] LABS: Anion Gap 13 mmol/L (10-20); Calc. Creatinine Clearance 171 mL/min (70-130); Calcium 7.3 mg/dL (7.8-10.44); Carbon Dioxide 28 mmol/L (23-31); Chloride 102 mmol/L (98-107); Estimated GFR-MDRD Greater than 90; Phosphorus 2.4 mg/dL (2.3-4.7); Potassium 3.5 mmol/L (3.5-5.1); Sodium 139 mmol/L (136-145)
[2020-04-25] MEDS: Levothyroxine Sodium 100 MCG TAB PER TUBE SCH (05:40)
[2020-04-25 07:27] LABS: Glucose 90 mg/dL (80-115)
[2020-04-25 07:31] LABS: BUN (Urea Nitrogen) 17 mg/dL (9.8-20.1)
[2020-04-25 07:33] LABS: Magnesium 1.5 mg/dL (1.6-2.6)
[2020-04-25 08:00] LABS: Band 9 % (5-11); Eosinophils 5 % (0-10); Hypochromia SLIGHT = 6-15 cells (100X) (0-5/hpf); Lymphocytes 21 % (21-51); MDiff Complete? YES; Mean Corpuscular HGB CONC 31.8 g/dL (32.0-36.0); Mean Corpuscular Hemoglobin 32.8 pg (27.0-31.0); Mean Platelet Volume 9.7 fL (7.4-10.4); Monocytes 11 % (0-10); Neutrophil 52 % (42-75); Platelet Count 66 thou/uL (130-400); Platelet Morphology Comment Appears Decreased; Polychromasia SLIGHT = 2-3 cells (100X) (0-2/hpf); RBC Distribution Width 17.2 % (11.5-14.5); Reactive Lymphocytes 1 % (0-10); Red Blood Cell (RBC) Count 3.96 mill/uL (4.20-5.40); Target Cells SLIGHT = 2-5 cells (100X) (0-1/hpf); White Blood Cell (WBC) Count 7.6 thou/uL (4.8-10.8)
[2020-04-25] MEDS: Gabapentin 300 MG CAP PO SCH ×2 (09:24→22:13)
[2020-04-25] MEDS: Nystatin Powder 15 GM BOT TOP SCH ×2 (09:24→22:46)
[2020-04-25] MEDS: Aspirin Chewable 81 MG TAB PER TUBE SCH (09:24)
[2020-04-25] MEDS: Famotidine/PF 20 mg/2ml Vial SLOW IVP SCH ×2 (09:25→22:14)
--- NOTE | 2020-04-25 13:27 | PDOC.HOSPP ---
- Subjective Encounter Date: 04/25/20 Encounter Time: 13:05 Subjective: f/u for sepsis/PNA/UTI and suspected bacteremia with staph spp including MRSE. Receiving Zithromax/Rocephin currently, no fever documented. Nursing reports tolerating po intake and has been stable. - Objective Vital Signs & Weight: Vital Signs (12 hours) Temp Pulse Resp BP Pulse Ox 04/25/20 07:09 71 18 04/25/20 04:34 97.8 F 112 H 18 127/80 94 L Weight Admit Weight 269 lb 4.8 oz Weight 269 lb 4.8 oz I&O: 04/24/20 04/25/20 04/26/20 06:59 06:59 06:59 Intake Total 3303 960 Output Total 550 200 Balance 2753 760 Result Diagrams: 04/25/20 07:10 04/25/20 07:10 Additional Labs: Accuchecks 04/25/20 04/25/20 04/24/20 10:35 05:47 16:44 POC Glucose 112 H 95 84 Microbiology 04/21/20 19:55 Nasopharynx Influenza Types A,B Direct EIA - Final 04/21/20 18:20 Urine Straight Catheter Urine Culture - Final Proteus mirabilis 04/21/20 18:18 Venous blood - Right Arm Blood Culture - Preliminary Specimen has been received and culture in [facility]. No Growth to date. 04/21/20 18:18 Venous blood - Right Arm Blood Culture - Preliminary Coagulase Neg Staphylococcus 04/21/20 17:44 Venous blood - Right Hand Blood Culture - Preliminary Specimen has been received and culture in progress. No Growth to date. 04/21/20 17:44 Venous blood - Right Hand Blood Culture - Preliminary Gram Positive Cocci 11/21/18 16:08 Urine Straight Catheter Urine Culture - Preliminary Presumptive Escherichia coli Gram Negative Erich 11/21/18 16:08 Urine Straight Catheter Urine Culture - Preliminary Presumptive Escherichia coli Laboratory Tests 04/21/20 04/21/20 04/21/20 15:40 15:40 15:40 Plt Count 69 L Creatinine 0.88 Total Bilirubin 2.7 H AST 77 H Ammonia Creatine Kinase 247 H Troponin I 0.059 H Albumin Vitamin B12 Folate TSH 3rd Generation 04/21/20 04/21/20 04/21/20 15:40 21:25 21:25 Plt Count Creatinine Total Bilirubin AST Ammonia 78 H Creatine Kinase Troponin I 0.065 H Albumin Vitamin B12 Folate TSH 3rd Generation 0.7931 04/22/20 04/22/20 04/22/20 04:02 04:02 04:02 Plt Count Creatinine Total Bilirubin AST 82 H Ammonia Creatine Kinase 466 H Troponin I 0.050 H Albumin 1.7 L Vitamin B12 Folate 7.50 TSH 3rd Generation 04/22/20 04/23/20 04:02 06:09 Plt Count Creatinine Total Bilirubin 1.9 H AST 108 H Ammonia Creatine Kinase 668 H Troponin I Albumin Vitamin B12 Greater than 2000 H Folate TSH 3rd Generation EKG Reviewed by me: Yes (Tele - SR) Hospitalist ROS - Medication Medications: Active Medications Generic Name Dose Route Start Last Admin Trade Name Freq PRN Reason Stop Dose Admin Albuterol/Ipratropium 3 ml 04/22/20 13:00 04/25/20 07:09 Ipratropium/Albuterol Sulfate 3 Ml Neb NEB 3 ml 0900,1300,1700,2100 SAMIRA Administration Aspirin 81 mg 04/23/20 09:00 04/25/20 09:24 Aspirin Chewable 81 Mg Tab PER TUBE 81 mg QAM SAMIRA Administration Azithromycin 250 mg 04/24/20 13:00 04/24/20 14:25 Azithromycin 200 Mg/5 Ml Oral Suspension PO 250 mg 1300 SAMIRA Administration Famotidine 20 mg 04/21/20 21:00 04/25/20 09:25 Famotidine/Pf 20 Mg/2ml Vial SLOW IVP 20 mg Q12HR SAMIRA Administration Gabapentin 300 mg 04/22/20 21:00 04/25/20 09:24 Gabapentin 300 Mg Cap PO 300 mg BID SAMIRA Administration Ceftriaxone Sodium 2 gm/ 100 mls @ 200 mls/hr 04/21/20 21:00 04/24/20 21:10 Sodium Chloride IVPB 100 mls Q24HR SAMIRA Administration Dextrose/Sodium Chloride 1,000 mls @ 75 mls/hr 04/23/20 12:40 04/24/20 16:06 D5 0.9% Ns IV 1,000 mls .[id number] SAMIRA Administration Levothyroxine Sodium 137 mcg 04/23/20 06:00 04/25/20 05:40 Levothyroxine Sodium 100 Mcg Tab PER TUBE 137 mcg 0600 SAMIRA Administration Nystatin 0 gm 04/22/20 21:00 04/25/20 09:24 Nystatin Powder 15 Gm Bot TOP 1 applic BID SAMIRA Administration Sertraline HCl 100 mg 04/23/20 09:00 04/25/20 09:24 Sertraline Hcl 100 Mg Tab PER TUBE 100 mg DAILY SAMIRA Administration Sodium Chloride 10 ml 04/21/20 21:00 04/25/20 09:26 Flush - Normal Saline 10 Ml Syringe IVF Not Given Q12HR SAMIRA - Exam General Appearance: awake alert Eye: PERRL, anicteric sclera ENT: normocephalic atraumatic, no oropharyngeal lesions Neck: supple, symmetric, no JVD, no thyromegaly Neck - other findings: trach in place with T-collar Heart: RRR, no gallops, no rubs, normal peripheral pulses Heart - other findings: S1, S2 Respiratory - other findings: few basilar rales, occ rhonchi, diminished in bases Gastrointestinal: soft, non-tender, non-distended, normal bowel sounds, no palpable masses Gastrointestinal - other findings: PEG in place Extremities: no cyanosis, 1+ LE edema Skin: normal turgor Neurological: cranial nerve grossly intact, no new deficit Neurological - other findings: mouths words briefly, motions with RUE Musculoskeletal: generalized weakness Musculoskeletal - other findings: bed-bound at baseline Psychiatric: oriented to person, oriented to place Hosp A/P (1) UTI (urinary tract infection) Status: Acute Qualifiers: Urinary tract infection type: acute cystitis Hematuria presence: without hematuria Qualified Code(s): N30.00 - Acute cystitis without hematuria Plan: Continue Rocephin another 24h then convert to Omnicef (2) Bacteremia Code(s): R78.81 - BACTEREMIA Status: Acute Plan: MRSE and staph spp, currently receiving Zithromax, consult ID for any further recommendations regarding mgmt, ? pathogen vs contaminant (3) Bacterial pneumonia Code(s): J15.9 - UNSPECIFIED BACTERIAL PNEUMONIA Status: Acute (4) SIRS (systemic inflammatory response syndrome) Code(s): R65.10 - SIRS OF NON-INFECTIOUS ORIGIN W/O ACUTE ORGAN DYSFUNCTION Status: Acute (5) Chronic respiratory failure with hypoxia Code(s): J96.11 - CHRONIC RESPIRATORY FAILURE WITH HYPOXIA Status: Chronic Plan: Continue general trach care with T-collar, frequent suctioning (6) Cirrhosis of liver Code(s): K74.60 - UNSPECIFIED CIRRHOSIS OF LIVER Status: Chronic Qualifiers: Hepatic cirrhosis type: unspecified hepatic cirrhosis Ascites presence: without ascites Qualified Code(s): K74.60 - Unspecified cirrhosis of liver (7) Hypothyroidism Code(s): E03.9 - HYPOTHYROIDISM, UNSPECIFIED Status: Chronic (8) Macrocytic anemia Code(s): D53.9 - NUTRITIONAL ANEMIA, UNSPECIFIED Status: Chronic (9) Obesity, morbid Code(s): E66.01 - MORBID (SEVERE) OBESITY DUE TO EXCESS CALORIES Status: Chronic (10) Severe muscle deconditioning Code(s): R29.898 - [facility] SYMPTOMS AND SIGNS INVOLVING THE MUSCULOSKELETAL SYSTEM Status: Chronic - Plan continue antibiotics, long term care social worker, speech therapy, respiratory therapy, DVT proph w/SCDs Continue supportive mgmt continue Rocephin another 24h then convert to Omnicef Start Zithromax 250mg daily Saline lock IVF's Resume Lasix 40mg daily Resume KCL Magnesium Sulfate 1gm IV x 1 now Dietitian/PRODUCTION SCHEDULER consult appreciated Start po intake today, monitor % eaten Consult ID for any further recommendations regarding bacteremia AM lab: BMP, Mg++ Likely back to [facility] in 24-48h
[2020-04-25] MEDS ORDERED: guaiFENesin 200 MG TAB PER TUBE PRN (13:33)
[2020-04-25] MEDS ORDERED: Furosemide 40 MG TAB PER TUBE SCH (13:45)
[2020-04-25] MEDS: Azithromycin 200 MG/5 ML Oral Suspension PO SCH (14:47)
--- NOTE | 2020-04-25 17:33 | PQF ---
CLINICAL DOCUMENTATION CLARIFICATION FORM: Dear Date: 04/25/2020 Please exercise your independent, professional judgment in responding to the clarification form. Clinical indicators are provided on the bottom of this form for your review. Please check appropriate box(es): [ x ] Sepsis due to: _Pneumonia,UTI [ ] Severe sepsis with associated acute organ dysfunction: [ ] Encephalopathy (metabolic) (septic) [ ] Additional/Other: please specify: [ ] Localized infection without sepsis [ ] SIRS due to non-infectious process (please specify etiology) [ ] with organ dysfunction [ ] without organ dysfunction [ ] Other diagnosis [ ] Unable to determine In addition, please specify: Present on Admission (POA): [ x ] Yes [ ] No [ ] Unable to determine For continuity of documentation, please document condition throughout progress notes and discharge summary. Thank You. CLINICAL INDICATORS - SIGNS / SYMPTOMS / LABS / RESULTS AND LOCATION IN MR ER Record 04/21: BP 114/70, pulse 96, Resp. 26, Temp 97.8 O2 sat 96 on 4L O2 DX: Healthcare associated pneumonia. Sepsis, UTI H&P 04/21 ([place]) HPI: The pt received IV cefepime, vancomycin, and intravenous normal saline x1 L after questionable sepsis criteria was met. A/P: Bilateral pneumonia, suspected given changes on chest imaging. Chronic hypoxic resp. failure with chronic tracheostomy Systemic inflammatory response syndrome Acute metabolic encephalopathy 04/24 pn ([facility]) Subjective: f/u for sepsis/PNA/UTI and bacteremia with staph spp including MRSE. A/P: UTI Bacteremia Bacterial pneumonia SIRS RISK FACTORS / RESULTS AND LOCATION IN MR H&P 04/21 ([place]): PMH: Chronic hypoxic respiratory failure with chronic tracheostomy. DM 2. Bed- bound status. Hx of multiple admissions for pneumonia. Morbid obesity. 04/23 pn ([place]) UTI. Bacteremia. Bacterial pneumonia TREATMENTS / RESULTS AND LOCATION IN MR Order 04/21-04/24: Levaquin 750 mg IV q 24 hr Order 04/21: IV Rocephin 2 gm IV q 24 hr 04/24 pn ([facility]) Start Zithromax 250mg daily. Decrease IVFs 75ml/h ID Consult 04/25 Thank you, Skylar Jackson, RN, BSN [email or web address] This is a permanent part of the Medical Record [facility]
[2020-04-25] MEDS: Potassium Chloride 20 MEQ TAB PER TUBE SCH (22:14)
[2020-04-25] MEDS: cefTRIAXone\\ROCEPHIN 2 GM in Sodium Chloride 0.9% 100 ML IVPB SCH (22:47)
--- NOTE | 2020-04-26 | PDOC.EVN ---
Event Note - Event Note Event Note: Nursing called that patient was having increased oxygen demand. Receiving neb treatment currently. Went to assess patient and rhonchi heard throughout with diminished lung bases. Nods head that neb is helping some. Stat chest xray ordered and ABG ordered once neb is completed. Will discuss case with Dr. Rodriguez.
[2020-04-26 00:07] LABS: Actual Bicarbonate (HCO3a) 34.4 mEq/L (22-28); Base Excess (BEa) 7.3 mEq/L (-2.0 to +3.0); Calcium, Ionized (arterial) 1.11 mmol/L (1.12-1.30); Carboxyhemoglobin (COHb) 1.7 gm% (0.0-3.0); Hemoglobin (Hb) 13.3 g/dL (12.0-16.0); Potassium - ABG Lab 3.38 mmol/L (3.70-5.30); pH, Arterial 7.38 (7.35-7.45)
[2020-04-26 00:09] LABS: CO2 Tension 60.2 mmHg (35.0-45.0)
[2020-04-26 00:10] LABS: O2 Tension (PaO2), arterial 51.6 mmHg (> 80.0); Puncture Site RRA
--- NOTE | 2020-04-26 00:42 | PDOC.EVN ---
Event Note - Event Note Event Note: 0030: Dr. Rodriguez with ABG results and chest xray (comparing xray completed 04/21/2020 to today's), ordering for patient to be transferred to CCU to be placed on vent. Orders placed with him into computer. Attempted to call pulm. to inform them of upgrade but did not receive answer at this time. Primary nurse and RT notified of transfer. 0105: Pt reevaluated at this time, RT states that pt had similar episode last night and took extended amount of time to recover. Pt appears more comfortable at this time, labor of breathing has decreased and skin color no longer as pale. Discussed with Dr. Rodriguez and will transfer to IMCU instead of CCU as O2 sats keep fluctuating but no longer appears to need vent as O2 drive decreases and she remains comfortable.
[2020-04-26] MEDS ORDERED: Ventilator Sedation Protocol 1 EACH FS SCH (00:43)
[2020-04-26] MEDS ORDERED: Norepinephrine 8 MG/0.9% NS 250 ML IVPB PRN (00:43)
[2020-04-26] MEDS ORDERED: Propofol BOLUS 1,000 MG/100 ML VIAL IV PRN (01:00)
[2020-04-26] MEDS ORDERED: Fentanyl BOLUS 250 ML IVPB PRN (01:00)
[2020-04-26] MEDS ORDERED: Lorazepam 2 MG/ML VIAL SLOW IVP PRN (01:00)
[2020-04-26] MEDS ORDERED: Morphine 2 MG/ML VIAL SLOW IVP PRN (01:00)
[2020-04-26] MEDS ORDERED: DISCONTINUE PREVIOUS NARCOTIC PAIN MEDICATIONS AND BENZODIAZEPINES FS SCH (01:00)
[2020-04-26] MEDS ORDERED: fentaNYL Citrate/PF 2,000 MCG in Sodium Chloride 0.9% 60 ML IV SCH (01:00)
[2020-04-26] MEDS ORDERED: Propofol 1,000 MG/100 ML VIAL IV PRN (01:00)
[2020-04-26 04:27] LABS: Hemoglobin 12.7 g/dL (12.0-16.0); Mean Corpuscular HGB CONC 32.5 g/dL (32.0-36.0); Mean Corpuscular Hemoglobin 33.7 pg (27.0-31.0); Mean Platelet Volume 9.5 fL (7.4-10.4); Platelet Count 73 thou/uL (130-400); RBC Distribution Width 17.3 % (11.5-14.5); Red Blood Cell (RBC) Count 3.77 mill/uL (4.20-5.40); White Blood Cell (WBC) Count 6.9 thou/uL (4.8-10.8)
[2020-04-26 04:28] LABS: Band 23 % (5-11); Eosinophils 1 % (0-10); Lymphocytes 19 % (21-51); MDiff Complete? YES; Monocytes 8 % (0-10); Neutrophil 49 % (42-75); Platelet Morphology Comment Appears Decreased
[2020-04-26 04:31] LABS: Anion Gap 12 mmol/L (10-20); BUN (Urea Nitrogen) 20 mg/dL (9.8-20.1); Calc. Creatinine Clearance 166 mL/min (70-130); Calcium 7.5 mg/dL (7.8-10.44); Carbon Dioxide 29 mmol/L (23-31); Chloride 103 mmol/L (98-107); Estimated GFR-MDRD 89; Glucose 94 mg/dL (80-115); Magnesium 1.7 mg/dL (1.6-2.6); Potassium 3.7 mmol/L (3.5-5.1); Sodium 140 mmol/L (136-145)
--- NOTE | 2020-04-26 05:47 | RAD ---
PORTABLE CHEST: 04/25/20 PROVIDED CLINICAL HISTORY: Shortness of breath. FINDINGS: Comparison 04/21/20. Evaluation is limited by patient body habitus. The lungs are hypoinflated. Tracheostomy appliance is in similar position. The cardiac and mediastinal silhouette is unchanged in appearance. Interval incr ease in bilateral interstitial and air space disease. No pleural fluid or pneumothorax apparent. IMPRESSION: Worsening bilateral air space disease, compatible with pneumonia. POS: JEREMI
[2020-04-26] MEDS: Levothyroxine Sodium 100 MCG TAB PER TUBE SCH (06:08)
[2020-04-26] MEDS: Famotidine/PF 20 mg/2ml Vial SLOW IVP SCH ×2 (10:13→20:13)
[2020-04-26] MEDS: Aspirin Chewable 81 MG TAB PER TUBE SCH (10:14)
[2020-04-26] MEDS: Furosemide 40 MG TAB PER TUBE SCH (10:15)
[2020-04-26] MEDS: Potassium Chloride 20 MEQ TAB PER TUBE SCH ×2 (10:15→20:10)
[2020-04-26] MEDS: Gabapentin 300 MG CAP PO SCH ×2 (10:15→20:10)
[2020-04-26] MEDS: Azithromycin 200 MG/5 ML Oral Suspension PO SCH (13:50)
[2020-04-26] MEDS: Nystatin Powder 15 GM BOT TOP SCH ×2 (13:56→20:12)
--- NOTE | 2020-04-26 14:52 | PDOC.HOSPP ---
- Subjective Encounter Date: 04/26/20 Encounter Time: 13:00 Subjective: Patient was seen and examined in bed. Tracheostomy in place. Denies any acute complaints. No acute events overnight. - Objective Vital Signs & Weight: Vital Signs (12 hours) Temp Pulse Resp Pulse Ox 04/26/20 11:30 96.5 F L 04/26/20 10:52 77 22 H 93 L 04/26/20 08:00 90 L 04/26/20 07:50 94 L 04/26/20 07:47 76 23 H 93 L 04/26/20 07:15 97.4 F L 04/26/20 03:53 98.1 F 04/26/20 03:08 92 L Weight Admit Weight 269 lb 4.8 oz Weight 269 lb 4.8 oz Most Recent Monitor Data Heart Rate from ECG 77 NIBP 112/71 NIBP BP-Mean 84 Respiration from ECG 22 SpO2 94 I&O: 04/25/20 04/26/20 04/27/20 06:59 06:59 06:59 Intake Total 960 810 Output Total 200 450 Balance 760 360 Result Diagrams: 04/26/20 03:26 04/26/20 03:26 Additional Labs: Accuchecks 04/26/20 04/26/20 04/25/20 11:28 05:35 20:33 POC Glucose 69 L 96 77 04/25/20 04/24/20 17:00 20:20 POC Glucose 107 H 135 H Hospitalist ROS - Medication Medications: Active Medications Generic Name Dose Route Start Last Admin Trade Name Freq PRN Reason Stop Dose Admin Albuterol/Ipratropium 3 ml 04/22/20 13:00 04/26/20 10:52 Ipratropium/Albuterol Sulfate 3 Ml Neb NEB 3 ml 0900,1300,1700,2100 SAMIRA Administration Aspirin 81 mg 04/23/20 09:00 04/26/20 10:14 Aspirin Chewable 81 Mg Tab PER TUBE 81 mg QAM SAMIRA Administration Azithromycin 250 mg 04/24/20 13:00 04/26/20 13:50 Azithromycin 200 Mg/5 Ml Oral Suspension PO 250 mg 1300 SAMIRA Administration Famotidine 20 mg 04/21/20 21:00 04/26/20 10:13 Famotidine/Pf 20 Mg/2ml Vial SLOW IVP 20 mg Q12HR SAMIRA Administration Furosemide 40 mg 04/26/20 09:00 04/26/20 10:15 Furosemide 40 Mg Tab PER TUBE 40 mg DAILY SAMIRA Administration Gabapentin 300 mg 04/22/20 21:00 04/26/20 10:15 Gabapentin 300 Mg Cap PO 300 mg BID SAMIRA Administration Ceftriaxone Sodium 2 gm/ 100 mls @ 200 mls/hr 04/21/20 21:00 04/25/20 22:47 Sodium Chloride IVPB 100 mls Q24HR SAMIRA Administration Levothyroxine Sodium 137 mcg 04/23/20 06:00 04/26/20 06:08 Levothyroxine Sodium 100 Mcg Tab PER TUBE 137 mcg 0600 SAMIRA Administration Nystatin 0 gm 04/22/20 21:00 04/26/20 13:56 Nystatin Powder 15 Gm Bot TOP 1 applic BID SAMIRA Administration Potassium Chloride 20 meq 04/25/20 21:00 04/26/20 10:15 Potassium Chloride 20 Meq Tab PER TUBE 20 meq BID SAMIRA Administration Sertraline HCl 100 mg 04/23/20 09:00 04/26/20 10:16 Sertraline Hcl 100 Mg Tab PER TUBE 100 mg DAILY SAMIRA Administration Sodium Chloride 10 ml 04/21/20 21:00 04/26/20 10:20 Flush - Normal Saline 10 Ml Syringe IVF 10 ml Q12HR SAMIRA Administration Hosp A/P - Plan This is a 65-year-old female patient with chronic tracheostomy, cirrhosis admitted on account of possible sepsis with UTI and bilateral pneumonia. Sepsis Possibly from urinary/respiratory source. On ceftriaxone and azithromycin Currently generally stable Continue antibiotics UTI Continue ceftriaxone and monitor. Urine growing Proteus mirabilis antibiotics as above Pneumonia Chest x-ray overnight showing worsening bilateral infiltrates. Currently on azithromycin and ceftriaxone ID has been consulted Will defer antibiotic changes Chronic respiratory failure with hypoxia Continue on tracheal care and trach collar with as needed suctioning. Pulmonology consulted. Positive blood cultures Blood culture growing staph epidermidis and Staphylococcus auricularis So likely contaminant Appreciate ID input on these. Liver cirrhosis Currently no acute decompensation Continue monitor. Thrombocytopenia Platelet at 73 from 66 This is chronic likely secondary to cirrhosis Continue monitoring. Next Hypothyroidism Continue on levothyroxine Microcytic anemia Possibly due to cirrhosis Chronicwe will monitor. Diabetes mellitus Continue insulin A1c 4.9 on 04/08/2018 Repeat A1c Continue correctional insulin. Generally poor clinical state Recurrent presentations to the ED Palliative care consulted for goals of care discussion Obesity VTE prophylaxisto start Lovenox
--- NOTE | 2020-04-26 17:06 | PDOC.PALCO ---
Palliative Care Consult - Allergies Allergies/Adverse Reactions: Allergies Allergy/AdvReac Type Severity Reaction Status Date / Time Penicillins Allergy Intermediate Rash Verified 10/22/19 15:39 amoxicillin [Amoxicillin] Allergy Verified 10/22/19 15:39 - Objective Vital Signs: Vital Signs - Most Recent Temp Pulse Resp BP Pulse Ox 98.2 F 77 19 112/64 93 L 04/26/20 15:26 04/26/20 14:59 04/26/20 14:59 04/25/20 23:40 04/26/20 14:59 - Problem List (1) Acute on chronic respiratory failure with hypoxia Code(s): J96.21 - ACUTE AND CHRONIC RESPIRATORY FAILURE WITH HYPOXIA Current Visit: No Status: Acute (2) Palliative care encounter Code(s): Z51.5 - ENCOUNTER FOR PALLIATIVE CARE Current Visit: Yes Status: Acute (3) Sepsis Code(s): A41.9 - SEPSIS, UNSPECIFIED ORGANISM Current Visit: No Status: Acute Qualifiers: Sepsis type: sepsis due to unspecified organism Qualified Code(s): A41.9 - Sepsis, unspecified organism (4) Cirrhosis of liver Code(s): K74.60 - UNSPECIFIED CIRRHOSIS OF LIVER Current Visit: No Status: Chronic Qualifiers: Hepatic cirrhosis type: unspecified hepatic cirrhosis Ascites presence: without ascites Qualified Code(s): K74.60 - Unspecified cirrhosis of liver (5) Diabetes Code(s): E11.9 - TYPE 2 DIABETES MELLITUS WITHOUT COMPLICATIONS Current Visit: No Status: Chronic Qualifiers: Diabetes mellitus type: type 2 Diabetes mellitus parts counterman insulin use: unspecified care home insulin use status (6) Severe muscle deconditioning Code(s): R29.898 - [facility] SYMPTOMS AND SIGNS INVOLVING THE MUSCULOSKELETAL SYSTEM Current Visit: No Status: Chronic (7) Thrombocytopenia Code(s): D69.6 - THROMBOCYTOPENIA, UNSPECIFIED Current Visit: No Status: Chronic - Plan/Recommendations Plan: Patient transferred to [facility] in the evening secondary to respiratory decline. Currently stable. Resident at [facility]. Discussed with patient that I will reach out to her son Arun to arrange a conversation to revisit her Goal of Care and frequent hospital visits. left message for Arun, awaiting a return call. Palliative Care will revisit multiple morbidities, discuss continued decline and revisit Goal of Care. [50] minutes spent on this encounter with >50% of the time in counseling and coordination of care. Thank you for this very appropriate consult.
--- NOTE | 2020-04-26 20:04 | CON ---
DATE OF CONSULTATION: 04/26/2020 REASON FOR CONSULTATION: Bacteremia and other issues. HISTORY OF PRESENT ILLNESS: A 65-year-old whom I had seen in the past in 06/2019 when she presented with a history of morbid obesity, steatohepatitis, liver cirrhosis, recurrent episodes of hepatic encephalopathy, hypoventilation syndrome with tracheostomy, type 2 diabetes, and recurrent episodes of cellulitis in the lower extremities. She has had a urinary abnormalities, treated as UTI in the past, and I thought that the June complication was due to hepatic encephalopathy with additional cardiopulmonary syndrome and hypoxemia in the half-way. I was not sure that the urinary tract findings were related to the patient's clinical change. There was no evidence of hydronephrosis or obstructive uropathy. At this time, she presents on 04/21, brought from half-way, because of altered mental status, confusional state. On arrival, her BP 114/70, pulse 96, respirations 26, temperature 97.8, and O2 saturations are 96 and this is 4 L nasal cannula the patient described as confused, but in no acute distress. The respiratory examination showed no abnormalities. Heart examination described as normal. Abdomen described as nontender. Other findings on admission included a white cell count 6.4, hemoglobin 14, platelets 69 with 20% lymphocytes, and normal differential otherwise. Initial chemistry with a sodium 143, creatinine 0.85, AST 108, bilirubin 1.9, CK 668, and albumin 1.8. Urinalysis was abnormal. Looking back, she often has those urinalysis with increased pyuria, so I am not sure this represents any relationship to her decompensation at this point. Microbiology results thus far and we have Staph epidermidis, now auricularis, which very likely represent contamination of the specimen rather than true bacteremia and she does have Proteus mirabilis, which is resistant to quinolones and Bactrim, greater than 100,000 CFUs. They did some swab cultures from the skin areas of pressure damage in the posterior thighs, but it is hard to interpret those. Currently, Ms. Springer is quite encephalopathic. She opens her eyes when I call her name and tries to mumble some unintelligible sounds. I could not communicate with her or get her to follow commands. There has been no reported diarrhea. She is voiding in the diaper. PAST MEDICAL HISTORY: Includes: 1. Morbid obesity. 2. Lymphedema. 3. Cellulitis. 4. KATE. 5. Hypoventilation syndrome. 6. Steatohepatitis. 7. Liver cirrhosis. 8. Hepatic encephalopathy. 9. Former smoking. 10. Episodes of respiratory failure. 11. Has had a tracheostomy placed, still there. 12. Prior central line associated pneumothorax, which required chest tube placement recently. 13. . 14. Cholecystectomy. 15. Tonsillectomy in the past. ALLERGIES: PENICILLIN WITH RASH. MEDICATIONS: She is currently receivin. Inhalers. 2. Zithromax. 3. Tessalon. 4. Ceftriaxone. 5. Pepcid. 6. Lasix. 7. Zofran. 8. Zoloft. FAMILY HISTORY: Noncontributory. SOCIAL HISTORY: She lives in a half-way. Former smoker. PHYSICAL EXAMINATION: VITAL SIGNS: Temperature, she has been afebrile since admission; BP 112/71; pulse 77; O2 saturations ranging from 88 to 93 with trach collar. SKIN: We have the pressure changes with maceration along the proximal aspect of the thighs and gluteal region with some very sharply skin areas of a laceration or pressure damage. She has a little bit of erythema in the left heel in the frontal aspect. There is also erythema with maceration of the skin along the groin area. It is not clear if those linear markings, it must be from the diaper, that may be fit too tightly around her waistline, not sure about that, but those seem to be caused by a foreign object or an external object causing those markings suggestive of possible markings from the feeding of the diaper. She has a peripheral IV access and a tracheostomy. GENERAL: She opens her eyes intermittently. HEENT: The pupils are reactive about 2 mm and equal. The sclerae are somewhat light yellow in color. The oral cavity is dry. She opens her mouth and I did not see any oral lesions. NECK: Appears supple. There is no jugular vein distention. LUNGS: Symmetric air entry. Was not able to observe any crackles or wheezing. HEART: S1 and S2. Diminished heart sounds. Hard to evaluate heart sounds. ABDOMEN: Very prominent panniculus in the abdominal area, hard to evaluate her abdominal exam. She did not have tenderness on palpation. EXTREMITIES: She has very massive lower extremities with some lymphedema. Pulses 1+ in dorsalis pedis. Plantar responses are indifferent. No clonus. NEUROLOGIC: She is awake. She opens her eyes when I call her name, but mumbles unintelligible sounds. It is hard to get her to follow commands. LABORATORY DATA: White cell count is 6.9, hemoglobin 12.7, and platelets are 73,000. The last sodium 140, creatinine 0.67, AST 108, bilirubin 1.9, alkaline phosphatase 123, CK 668, and albumin 1.8. Urinalysis greater than 50 as I noted. COVID was not detected. IMAGING STUDIES: We have a chest x-ray with worsening bilateral airspace disease, fairly symmetric. She had a chest CTA in 05/20, which did not show pulmonary emboli. There was evidence of interstitial pulmonary edema with moderate cardiomegaly. She had an echocardiogram in 2017, which has not been repeated. At that time, the EF was 60%, mild valvular abnormalities noted. A renal ultrasound was done on 06/20, which showed no hydronephrosis and a Magana catheter. The last abdomen and pelvis CT was from 2018 and it showed edema in the abdominal wall pannus. She has a soft tissue density in subcutaneous fat then. There is evidence of left nephrolithiasis, but no obstructive uropathy. Hepatic cirrhosis noted. She had a complex exophytic hemorrhagic cyst protruding from the lower pole of the right kidney, which had improved. ASSESSMENT: 1. Morbid obesity. 2. Lymphedema. 3. Cellulitis. 4. Obstructive sleep apnea. 5. Nephrolithiasis without obstruction in 2018. 6. Episodes of abnormal urinalysis and positive urine culture with possible invasive urinary tract infection in the past. 7. Steatohepatitis with liver cirrhosis and hepatic encephalopathy. 8. Episodes of interstitial pulmonary edema in the past now with abnormal chest x-ray with either pneumonia or infectious pneumonia or just interstitial pulmonary edema again. DISCUSSION: This is a patient who has multiple abnormalities associated with her chronic illnesses, and it is difficult to tease out what precipitated this current decompensation. Her last ammonia was from 04/21 was elevated. It is mildly elevated at 78, so this current decompensations likely multifactorial. The pulmonary findings could be infectious pneumonia or more likely pulmonary edema, which has been identified in the past. A repeat echocardiogram is advisable to follow up the progress of her cardiac function. She must have at least diastolic dysfunction. In addition to that, she may have an element of hepatopulmonary syndrome, which can manifest as pulmonary edema. Her urinary abnormalities may reflect true invasive infection, and in the face of a prior nephrolithiasis, we need to follow up that with a CT stone protocol to verify that there has not been significant growth of the stone with obstruction. I do not think that the left posterior thigh changes are contributing to her decline at this point in time, although those need to be addressed, but I do not think she has evidence to suggest actual cellulitis. Job ID: [id number] MTDD
[2020-04-26] MEDS: Enoxaparin Sodium 40 MG/0.4 ML SYRINGE SC SCH (20:13)
[2020-04-26] MEDS: cefTRIAXone\\ROCEPHIN 2 GM in Sodium Chloride 0.9% 100 ML IVPB SCH (20:41)
--- NOTE | 2020-04-27 01:57 | CON ---
DATE OF CONSULTATION: 04/26/2020 HISTORY OF PRESENT ILLNESS: Ms. Springer is a 65-year-old female, who has a chronic indwelling tracheostomy, lives in a full-time care environment. She was admitted on the . I was consulted because of her presence in the intermediate care unit. She is on the intermediate care unit because of possible pneumonia and bacteremia. Her blood culture has grown two different Staph species. PAST MEDICAL HISTORY: Remarkable for, 1. Morbid obesity. 2. Cirrhosis secondary to steatohepatitis. 3. History of hepatic encephalopathy. 4. History of . 5. History of cholecystectomy. 6. Tonsillectomy. 7. History of an iatrogenic pneumothorax. SOCIAL HISTORY: She is nonsmoker, was a smoker in the past. Nondrinker. Lives in a snf. FAMILY HISTORY: Negative for lung disease in early age records. REVIEW OF SYSTEMS: Otherwise negative. PHYSICAL EXAMINATION: GENERAL: She is afebrile, heart rates 79, and blood pressure 143/80. HEAD AND NECK: Unremarkable except for tracheostomy. LUNGS: Remarkable for coarse equal breath sounds. HEART: Regular rhythm. ABDOMEN: Soft, fairly protuberant. VITAL SIGNS: She is 5 feet 2 inches, 269 pounds. EXTREMITIES: With chronic stasis changes. LABORATORY DATA: Chest x-ray shows an increase in interstitial markings. IMPRESSION: Multiple chronic medical problems with obesity hypoventilation syndrome, chronic indwelling trach, morbid obesity. What I feel is most likely interstitial edema. I suspect her blood cultures are contaminant and not pathogens. Her radiograph is not classic for pneumonia. Infectious Disease has been consulted. They recommended CT stone protocol. In regard to her oxygen therapy, her O2 saturation just needs to be kept 88% to 92%, no higher. TIME SPENT: 50-minute consult, 50% time was spent in coordinating care. Job ID: [id number] [facility]
[2020-04-27 03:47] LABS: Anion Gap 12 mmol/L (10-20); BUN (Urea Nitrogen) 22 mg/dL (9.8-20.1); Calc. Creatinine Clearance 154 mL/min (70-130); Calcium 7.6 mg/dL (7.8-10.44); Carbon Dioxide 28 mmol/L (23-31); Chloride 104 mmol/L (98-107); Estimated GFR-MDRD 82; Glucose 102 mg/dL (80-115); Potassium 4.1 mmol/L (3.5-5.1); Sodium 140 mmol/L (136-145)
[2020-04-27 04:11] LABS: Band 7 % (5-11); Eosinophils 1 % (0-10); Hemoglobin 12.8 g/dL (12.0-16.0); Lymphocytes 20 % (21-51); MDiff Complete? YES; Mean Corpuscular HGB CONC 31.4 g/dL (32.0-36.0); Monocytes 15 % (0-10); Neutrophil 57 % (42-75); Platelet Count 74 thou/uL (130-400); Platelet Morphology Comment Appears Decreased; RBC Distribution Width 17.5 % (11.5-14.5); Red Blood Cell (RBC) Count 3.88 mill/uL (4.20-5.40); Target Cells SLIGHT = 2-5 cells (100X) (0-1/hpf); White Blood Cell (WBC) Count 8.8 thou/uL (4.8-10.8)
[2020-04-27] MEDS: Levothyroxine Sodium 100 MCG TAB PER TUBE SCH (06:22)
[2020-04-27] MEDS: Nystatin Powder 15 GM BOT TOP SCH ×2 (10:34→22:19)
[2020-04-27] MEDS: Potassium Chloride 20 MEQ TAB PER TUBE SCH ×2 (10:35→22:18)
[2020-04-27] MEDS: Furosemide 40 MG TAB PER TUBE SCH (10:35)
[2020-04-27] MEDS: Gabapentin 300 MG CAP PO SCH ×2 (10:35→22:19)
[2020-04-27] MEDS: Aspirin Chewable 81 MG TAB PER TUBE SCH (10:35)
[2020-04-27] MEDS: Famotidine/PF 20 mg/2ml Vial SLOW IVP SCH ×2 (10:36→22:17)
[2020-04-27] MEDS: Azithromycin 200 MG/5 ML Oral Suspension PO SCH (13:57)
--- NOTE | 2020-04-27 14:22 | PDOC.HOSPP ---
- Subjective Encounter Date: 04/27/20 Subjective: Seen and examined in bed. She is currently improved. No acute events overnight. Oxygen radiation 60 to 40%. - Objective Vital Signs & Weight: Vital Signs (12 hours) Temp Pulse Resp Pulse Ox 04/27/20 11:29 79 22 H 91 L 04/27/20 11:25 96.2 F L 04/27/20 08:06 90 L 04/27/20 08:04 83 19 90 L 04/27/20 08:00 90 L 04/27/20 07:02 97.0 F L 04/27/20 04:00 97.6 F Weight Admit Weight 269 lb 4.8 oz Weight 269 lb 4.8 oz Most Recent Monitor Data Heart Rate from ECG 80 NIBP 113/69 NIBP BP-Mean 83 Respiration from ECG 19 SpO2 91 I&O: 04/26/20 04/27/20 04/28/20 06:59 06:59 06:59 Intake Total 810 480 Output Total 450 125 Balance 360 355 Result Diagrams: 04/27/20 03:10 04/27/20 03:10 Additional Labs: Accuchecks 04/27/20 04/27/20 04/26/20 10:50 06:20 20:08 POC Glucose 81 90 85 04/26/20 16:35 POC Glucose 110 H Hospitalist ROS - Medication Medications: Active Medications Generic Name Dose Route Start Last Admin Trade Name Freq PRN Reason Stop Dose Admin Albuterol/Ipratropium 3 ml 04/22/20 13:00 04/27/20 11:29 Ipratropium/Albuterol Sulfate 3 Ml Neb NEB 3 ml 0900,1300,1700,2100 SAMIRA Administration Aspirin 81 mg 04/23/20 09:00 04/27/20 10:35 Aspirin Chewable 81 Mg Tab PER TUBE 81 mg QAM SAMIRA Administration Azithromycin 250 mg 04/24/20 13:00 04/27/20 13:57 Azithromycin 200 Mg/5 Ml Oral Suspension PO 250 mg 1300 SAMIRA Administration Enoxaparin Sodium 40 mg 04/26/20 21:00 04/26/20 20:13 Enoxaparin Sodium 40 Mg/0.4 Ml Syringe SC Not Given 2100 SAMIRA Famotidine 20 mg 04/21/20 21:00 04/27/20 10:36 Famotidine/Pf 20 Mg/2ml Vial SLOW IVP 20 mg Q12HR SAMIRA Administration Furosemide 40 mg 04/26/20 09:00 04/27/20 10:35 Furosemide 40 Mg Tab PER TUBE 40 mg DAILY SAMIRA Administration Gabapentin 300 mg 04/22/20 21:00 04/27/20 10:35 Gabapentin 300 Mg Cap PO 300 mg BID SAMIRA Administration Ceftriaxone Sodium 2 gm/ 100 mls @ 200 mls/hr 04/21/20 21:00 04/26/20 20:41 Sodium Chloride IVPB 100 mls Q24HR SAMIRA Administration Levothyroxine Sodium 137 mcg 04/23/20 06:00 04/27/20 06:22 Levothyroxine Sodium 100 Mcg Tab PER TUBE 137 mcg 0600 SAMIRA Administration Nystatin 0 gm 04/22/20 21:00 04/27/20 10:34 Nystatin Powder 15 Gm Bot TOP 1 applic BID SAMIRA Administration Potassium Chloride 20 meq 04/25/20 21:00 04/27/20 10:35 Potassium Chloride 20 Meq Tab PER TUBE 20 meq BID SAMIRA Administration Sertraline HCl 100 mg 04/23/20 09:00 04/27/20 10:35 Sertraline Hcl 100 Mg Tab PER TUBE 100 mg DAILY SAMIRA Administration Sodium Chloride 10 ml 04/21/20 21:00 04/27/20 10:36 Flush - Normal Saline 10 Ml Syringe IVF 10 ml Q12HR SAMIRA Administration - Exam General - other findings: Patient in bed, on trach collar, no acute distress Heart - other findings: S1-S2 present. No murmurs or gallops or rubs. Respiratory - other findings: Breath sounds coarse bilaterally. Gastrointestinal - other findings: Soft, nontender. Bowel sounds present. Hosp A/P - Plan This is a 65-year-old female patient with chronic tracheostomy, cirrhosis admitted on account of possible sepsis with UTI and bilateral pneumonia. Sepsis Possibly from urinary/respiratory source. On ceftriaxone and azithromycin Currently generally stable Continue antibiotics Acute hypoxic respiratory failure Pneumonia versus acute CHF exacerbation. We will continue diuresischeck echo Repeat chest x-ray in a.m. Continue to biotics for now although less likely an infection. UTI Continue ceftriaxone and monitor. Urine growing Proteus mirabilis antibiotics as above Pneumonia Chest x-ray overnight showing worsening bilateral infiltrates. Currently on azithromycin and ceftriaxone ID has been consultedlow suspicious of pneumonia Likely edema Will defer antibiotic changes Chronic respiratory failure with hypoxia Continue on tracheal care and trach collar with as needed suctioning. Pulmonology consulted. Positive blood cultures Blood culture growing staph epidermidis and Staphylococcus auricularis So likely contaminant Appreciate ID input on these. Liver cirrhosis Currently no acute decompensation add lactulose for BM-target 3/day Continue monitor. Thrombocytopenia Platelet at 73 from 66 This is chronic likely secondary to cirrhosis Continue monitoring. Next Hypothyroidism Continue on levothyroxine Microcytic anemia Possibly due to cirrhosis Chronicwe will monitor. Diabetes mellitus Continue insulin A1c 4.9 on 04/08/2018 Repeat A1c Continue correctional insulin. Generally poor clinical state Recurrent presentations to the ED Palliative care consulted for goals of care discussion Obesity VTE prophylaxisto start Lovenox
--- NOTE | 2020-04-27 15:40 | PRG ---
DATE OF SERVICE: 04/27/2020 SUBJECTIVE: Ms. Springer remains stable. Her hemodynamics have been stable. OBJECTIVE: LUNGS: Remarkable for mild rhonchi, mainly secondary to tracheal secretions. HEART: Regular rhythm. ABDOMEN: Soft and massive. IMPRESSION: 1. Cirrhosis. 2. Life-threatening obesity. 3. Extreme deconditioning. 4. Obesity hypoventilation syndrome with a tracheostomy tube in place. 5. Pulmonary edema. Clinically it does not appear that she has pneumonia. I would recommend diuresis and a repeat x-ray tomorrow. Job ID: [id number]
--- NOTE | 2020-04-27 16:59 | CT ---
CT OF THE ABDOMEN AND PELVIS WITHOUT IV CONTRAST 04/27/20 INDICATION: History of renal stones and urosepsis. FINDINGS: There is bibasilar air space consolidation consistent with aspiration pneumonia. There is also consol idation of portions of the lingula. There is cirrhotic morphology of the liver. The gallbladder is surgically absent. There is a percutan eous gastrostomy tube in place. There is a small tiny 3 mm nonobstructing calculus in the superior po le left kidney which is stable. Exophytic hemorrhagic cyst off the inferior pole of the right kidney is stable appearing. No hydronephrosis is evident. There are moderate calcifications involving the abdominal and pelvic vasculature. There is a prominen t amount of retained stool within the rectum. Small bowel is of normal caliber. No drainable fluid co llection is evident. There is an umbilical hernia demonstrated. Visualized bladder is unremarkable appearing. There is diffuse anasarca. There is scattered degenerative and osteoarthritic change. IMPRESSION: 1. Bibasilar pneumonia. 2. Cirrhotic morphology of the liver. 3. Percutaneous nephrostomy tube. 4. Stable left renal cyst and exophytic proteinaceous cyst off the inferior pole right kidney. 5. Moderate amount of retained stool in the rectum. 6. Other chronic findings as above. POS: BH
[2020-04-27] MEDS: Enoxaparin Sodium 40 MG/0.4 ML SYRINGE SC SCH (22:17)
[2020-04-27] MEDS: cefTRIAXone\\ROCEPHIN 2 GM in Sodium Chloride 0.9% 100 ML IVPB SCH (22:26)
[2020-04-28 04:17] LABS: Anion Gap 9 mmol/L (10-20); BUN (Urea Nitrogen) 22 mg/dL (9.8-20.1); Calc. Creatinine Clearance 161 mL/min (70-130); Calcium 8.1 mg/dL (7.8-10.44); Carbon Dioxide 35 mmol/L (23-31); Chloride 102 mmol/L (98-107); Estimated GFR-MDRD 86; Glucose 83 mg/dL (80-115); Potassium 3.9 mmol/L (3.5-5.1); Sodium 142 mmol/L (136-145)
[2020-04-28 05:46] LABS: Band 10 % (5-11); Eosinophils 4 % (0-10); Hemoglobin 12.8 g/dL (12.0-16.0); Lymphocytes 20 % (21-51); MDiff Complete? YES; Mean Corpuscular HGB CONC 32.2 g/dL (32.0-36.0); Mean Corpuscular Hemoglobin 33.6 pg (27.0-31.0); Mean Platelet Volume 8.8 fL (7.4-10.4); Monocytes 8 % (0-10); Neutrophil 57 % (42-75); Platelet Count 78 thou/uL (130-400); Platelet Morphology Comment Appears Decreased; RBC Distribution Width 17.4 % (11.5-14.5); Red Blood Cell (RBC) Count 3.82 mill/uL (4.20-5.40); White Blood Cell (WBC) Count 7.3 thou/uL (4.8-10.8)
--- NOTE | 2020-04-28 09:03 | RAD ---
SINGLE VIEW CHEST: HISTORY: Dyspnea. COMPARISON: 04/21/2020 FINDINGS: A single view of the chest shows an enlarged but stable cardiomediastinal silhouette. The tracheostom y is in good position in the trachea. There appears to be air space opacity in the left lower lobe. B ilateral perihilar fullness is seen. No pleural effusion is seen. IMPRESSION: Left lower lobe infiltrate. POS: EAA
[2020-04-28] MEDS: Furosemide 40 MG TAB PER TUBE SCH (11:36)
[2020-04-28] MEDS: Levothyroxine Sodium 100 MCG TAB PER TUBE SCH (11:36)
[2020-04-28] MEDS: Potassium Chloride 20 MEQ TAB PER TUBE SCH ×2 (11:36→23:47)
[2020-04-28] MEDS: Gabapentin 300 MG CAP PO SCH ×2 (11:36→23:46)
[2020-04-28] MEDS: Aspirin Chewable 81 MG TAB PER TUBE SCH (11:37)
[2020-04-28] MEDS: Famotidine/PF 20 mg/2ml Vial SLOW IVP SCH ×2 (11:52→23:46)
--- NOTE | 2020-04-28 13:05 | EKG ---
Test Reason : Blood Pressure : / mmHG Vent. Rate : 111 BPM Atrial Rate : 111 BPM P-R Int : 000 ms QRS Dur : 080 ms QT Int : 448 ms P-R-T Axes : 000 001 011 degrees QTc Int : 609 ms Atrial fibrillation with rapid ventricular response Possible Inferior infarct , age undetermined Anterolateral infarct (cited on or before 21-APR-2020) Abnormal ECG Confirmed by WAYLON HAY MD ([id number]) on 04/28/2020 1:05:02 PM Referred By: RIAN Confirmed By:WAYLON HAY MD
--- NOTE | 2020-04-28 13:56 | PDOC.HOSPP ---
- Subjective Encounter Date: 04/28/20 Encounter Time: 11:00 Subjective: Seen and examined in bed. No acute events overnight. - Objective Vital Signs & Weight: Vital Signs (12 hours) Temp Pulse Resp Pulse Ox 04/28/20 11:09 97.2 F L 04/28/20 10:28 88 27 H 87 L 04/28/20 10:00 88 L 04/28/20 08:00 89 L 04/28/20 07:14 97.2 F L 04/28/20 06:53 77 20 95 04/28/20 03:49 97.2 F L Weight Admit Weight 269 lb 4.8 oz Weight 269 lb 4.8 oz Most Recent Monitor Data Heart Rate from ECG 83 NIBP 133/78 NIBP BP-Mean 96 Respiration from ECG 23 SpO2 88 I&O: 04/27/20 04/28/20 04/29/20 06:59 06:59 06:59 Intake Total 480 240 Output Total 125 450 Balance 355 -210 Result Diagrams: 04/28/20 03:38 04/28/20 03:38 Additional Labs: Accuchecks 04/28/20 04/27/20 04/27/20 05:40 20:49 16:45 POC Glucose 71 95 103 H Hospitalist ROS - Medication Medications: Active Medications Generic Name Dose Route Start Last Admin Trade Name Saranq PRN Reason Stop Dose Admin Albuterol/Ipratropium 3 ml 04/22/20 13:00 04/28/20 10:28 Ipratropium/Albuterol Sulfate 3 Ml Neb NEB 3 ml 0900,1300,1700,2100 SAMIRA Administration Aspirin 81 mg 04/23/20 09:00 04/28/20 11:37 Aspirin Chewable 81 Mg Tab PER TUBE 81 mg QAM SAMIRA Administration Azithromycin 250 mg 04/24/20 13:00 04/27/20 13:57 Azithromycin 200 Mg/5 Ml Oral Suspension PO 250 mg 1300 SAMIRA Administration Enoxaparin Sodium 40 mg 04/26/20 21:00 04/27/20 22:17 Enoxaparin Sodium 40 Mg/0.4 Ml Syringe SC Not Given 2100 SAMIRA Famotidine 20 mg 04/21/20 21:00 04/28/20 11:52 Famotidine/Pf 20 Mg/2ml Vial SLOW IVP Not Given Q12HR SAMIRA Furosemide 40 mg 04/26/20 09:00 04/28/20 11:36 Furosemide 40 Mg Tab PER TUBE 40 mg DAILY SAMIRA Administration Gabapentin 300 mg 04/22/20 21:00 04/28/20 11:36 Gabapentin 300 Mg Cap PO 300 mg BID SAMIRA Administration Ceftriaxone Sodium 2 gm/ 100 mls @ 200 mls/hr 04/21/20 21:00 04/27/20 22:26 Sodium Chloride IVPB 100 mls Q24HR SAMIRA Administration Lactulose 20 gm 04/27/20 15:00 04/28/20 11:35 Lactulose 20 Gm/30 Ml Udcup PO 20 gm TID SAMIRA Administration Levothyroxine Sodium 137 mcg 04/23/20 06:00 04/28/20 11:36 Levothyroxine Sodium 100 Mcg Tab PER TUBE 137 mcg 0600 SAMIRA Administration Nystatin 0 gm 04/22/20 21:00 04/27/20 22:19 Nystatin Powder 15 Gm Bot TOP 1 applic BID SAMIRA Administration Potassium Chloride 20 meq 04/25/20 21:00 04/28/20 11:36 Potassium Chloride 20 Meq Tab PER TUBE 20 meq BID SAMIRA Administration Sertraline HCl 100 mg 04/23/20 09:00 04/28/20 11:37 Sertraline Hcl 100 Mg Tab PER TUBE 100 mg DAILY SAMIRA Administration Sodium Chloride 10 ml 04/21/20 21:00 04/28/20 11:53 Flush - Normal Saline 10 Ml Syringe IVF Not Given Q12HR SAMIRA - Exam General - other findings: In bed, on trach collar. Ill looking. Heart - other findings: S1-S2 present. No murmurs or gallops or rubs. Respiratory - other findings: Bilateral coarse breath sounds. Gastrointestinal - other findings: Soft, full. Nontender nondistended bowel sounds present Extremities - other findings: Bilateral pitting pedal edema. Hosp A/P - Plan This is a 65-year-old female patient with chronic respiratory failure chronic tracheostomy, cirrhosis admitted on account of acute on chronic respiratory failure, UTI and possible pneumonia. She is currently on diuresis steroids and antibiotics and showing some signs of improvement. ID and pulmonology following. Sepsis Possibly from urinary/respiratory source. On ceftriaxone and azithromycin Currently generally stable Continue antibiotics Acute hypoxic respiratory failure Pneumonia versus acute CHF exacerbation. We will continue diuresischeck echo Echo shows EF 50-55, Moderate dilated left atrium, enlarged right ventricle increased right ventricular systolic pressure. Chest x-ray this morning shows left infiltrate Continue antibiotics for now UTI Continue ceftriaxone and monitor. Urine growing Proteus mirabilis antibiotics as above Pneumonia Chest x-ray shows ongoing left infiltrate Currently on azithromycin and ceftriaxone IM butappreciate input into antibiotic management. Chronic respiratory failure with hypoxia Continue on tracheal care and trach collar with as needed suctioning. Pulmonology consulted. Positive blood cultures Blood culture growing staph epidermidis and Staphylococcus auricularis So likely contaminant Appreciate ID input on these. Liver cirrhosis Currently no acute decompensation add lactulose for BM-target 3/day Continue monitor. Thrombocytopenia Stable Secondary cirrhosis Continue monitoring. Hypothyroidism Continue on levothyroxine Microcytic anemia Possibly due to cirrhosis Chronicwe will monitor. Diabetes mellitus Continue insulin A1c 4.9 on 04/08/2018 Repeat A1c Continue correctional insulin. Generally poor clinical state Recurrent presentations to the ED Palliative care consulted for goals of care discussion Obesity VTE prophylaxisto start Lovenox
--- NOTE | 2020-04-28 15:05 | PRG ---
DATE OF SERVICE: OBJECTIVE: Love Springer clinically stable. OBJECTIVE: VITAL SIGNS: Heart rate is in 80s, respiratory rates in 20s, oximetry is 91 on a trach collar, blood pressure 133/78. LUNGS: Unchanged. HEART: Unchanged. ABDOMEN: Unchanged. LABORATORY DATA: White count 7.3, hemoglobin 12.8, platelets 78,000. Sodium 142, potassium 3.9, chloride 102, bicarb 35, BUN 22, creatinine 0.6. Intake and outputs -210. IMPRESSION: Pulmonary edema. Today's chest x-ray is hazy at her left base, but also that is complicated by the fact that she cannot take a deep breath secondary to her deconditioning. This infiltrate could be infectious or could be secondary to mucus plugging. I would continue current treatment. I would suggest conversion to p.o. antimicrobial therapy and discharge planning to go back to her living environment in the next 24 to 48 hours since we documented that she is stable. Job ID: [id number]
[2020-04-28] MEDS: Nystatin Powder 15 GM BOT TOP SCH ×2 (16:21→23:48)
[2020-04-28] MEDS: Azithromycin 200 MG/5 ML Oral Suspension PO SCH (16:21)
--- NOTE | 2020-04-28 17:11 | PRG ---
DATE OF SERVICE: 04/28/2020 SUBJECTIVE: Ms. Springer denies any pain. No shortness of breath. No diarrhea. She is more oriented. OBJECTIVE: VITAL SIGNS: She has been afebrile. BP 130/70, heart rate 83, respiratory rate 22, O2 saturation 91, on trach collar, which is her since her baseline. GENERAL: She does not appear in distress. LUNGS: Symmetric air entry with coarse breath sounds. HEART: S1 and S2. Regular rate without murmurs. ABDOMEN: Soft, somewhat distended. Bowel sounds are present. : No bladder distention. She has a diaper to manage incontinence. I's and O's have been slightly positive. EXTREMITIES: She is able to move extremities. No edema. LABORATORY DATA: White cell count is at 7.3, hemoglobin 12.8, platelets 78. Creatinine 0.69. Proteus mirabilis resistance to quinolones, nitrofurantoin and Bactrim in the urine culture and blood culture with a contamination by coagulase negative staphylococci. She is currently receiving inhalers, azithromycin, ceftriaxone. The patient had a CT stone protocol which demonstrated bibasilar airspace consolidation consistent with aspiration pneumonia and consolidation portions of lingula, cirrhotic morphology. ASSESSMENT AND DISCUSSION: Obesity, lymphedema, obstructive sleep apnea, tracheostomy with cellulitis in the past, evidence of aspiration pneumonia rather than interstitial pulmonary edema and she has this Proteus in the urine with abnormal urinalysis. She could also have an invasive urinary tract infection. There is no evidence of obstruction of urine tract and no worsening of the nephrolithiasis detected. She will continue on Rocephin. I think azithromycin can be discontinued and if she does improve, then she will be transitioned to Zosyn or meropenem. It seems like she is getting more stable now. Job ID: [id number] [facility]
[2020-04-28] MEDS: cefTRIAXone\\ROCEPHIN 2 GM in Sodium Chloride 0.9% 100 ML IVPB SCH (23:43)
[2020-04-28] MEDS: Enoxaparin Sodium 40 MG/0.4 ML SYRINGE SC SCH (23:45)
[2020-04-29] MEDS: Levothyroxine Sodium 100 MCG TAB PER TUBE SCH (06:35)
[2020-04-29] MEDS: Furosemide 40 MG/4 ML VIAL SLOW IVP SCH (09:15)
[2020-04-29] MEDS: Potassium Chloride 20 MEQ TAB PER TUBE SCH ×2 (09:15→21:52)
[2020-04-29] MEDS: Famotidine/PF 20 mg/2ml Vial SLOW IVP SCH ×2 (09:15→21:53)
[2020-04-29] MEDS: Gabapentin 300 MG CAP PO SCH ×2 (09:15→21:52)
[2020-04-29] MEDS: Aspirin Chewable 81 MG TAB PER TUBE SCH (09:15)
[2020-04-29] MEDS: Nystatin Powder 15 GM BOT TOP SCH ×2 (09:16→21:53)
--- NOTE | 2020-04-29 15:40 | PDOC.HOSPP ---
- Subjective Encounter Date: 04/29/20 Encounter Time: 15:38 Subjective: Patient was seen and examined in bed. No significant changes overnight. She had some loose stools on account of started on lactulose without any change in her mental state. - Objective Vital Signs & Weight: Vital Signs (12 hours) Temp Pulse Resp Pulse Ox 04/29/20 15:23 97.6 F 04/29/20 13:19 83 23 H 94 L 04/29/20 11:18 97.6 F 04/29/20 08:17 93 L 04/29/20 08:16 82 17 93 L 04/29/20 08:00 92 L 04/29/20 07:30 97.2 F L 04/29/20 03:56 97.0 F L Weight Admit Weight 269 lb 4.8 oz Weight 269 lb 4.8 oz Most Recent Monitor Data Heart Rate from ECG 84 NIBP 98/78 NIBP BP-Mean 84 Respiration from ECG 18 SpO2 88 I&O: 04/28/20 04/29/20 04/30/20 06:59 06:59 06:59 Intake Total 240 300 Output Total 450 300 Balance -210 0 Result Diagrams: 04/28/20 03:38 04/28/20 03:38 Additional Labs: Accuchecks 04/29/20 04/29/20 04/29/20 14:28 10:32 06:01 POC Glucose 73 88 77 04/28/20 04/28/20 04/28/20 20:35 16:47 10:38 POC Glucose 103 H 111 H 93 Hospitalist ROS - Medication Medications: Active Medications Generic Name Dose Route Start Last Admin Trade Name Rama PRN Reason Stop Dose Admin Albuterol/Ipratropium 3 ml 04/22/20 13:00 04/29/20 13:19 Ipratropium/Albuterol Sulfate 3 Ml Neb NEB 3 ml 0900,1300,1700,2100 SAMIRA Administration Aspirin 81 mg 04/23/20 09:00 04/29/20 09:15 Aspirin Chewable 81 Mg Tab PER TUBE 81 mg QAM SAMIRA Administration Azithromycin 250 mg 04/24/20 13:00 04/28/20 16:21 Azithromycin 200 Mg/5 Ml Oral Suspension PO 250 mg 1300 SAMIRA Administration Enoxaparin Sodium 40 mg 04/26/20 21:00 04/28/20 23:45 Enoxaparin Sodium 40 Mg/0.4 Ml Syringe SC Not Given 2100 SAMIRA Famotidine 20 mg 04/21/20 21:00 04/29/20 09:15 Famotidine/Pf 20 Mg/2ml Vial SLOW IVP 20 mg Q12HR SAMIRA Administration Furosemide 40 mg 04/29/20 09:00 04/29/20 09:15 Furosemide 40 Mg/4 Ml Vial SLOW IVP 40 mg DAILY SAMIRA Administration Gabapentin 300 mg 04/22/20 21:00 04/29/20 09:15 Gabapentin 300 Mg Cap PO 300 mg BID SAMIRA Administration Ceftriaxone Sodium 2 gm/ 100 mls @ 200 mls/hr 04/21/20 21:00 04/28/20 23:43 Sodium Chloride IVPB 100 mls Q24HR SAMIRA Administration Levothyroxine Sodium 137 mcg 04/23/20 06:00 04/29/20 06:35 Levothyroxine Sodium 100 Mcg Tab PER TUBE 137 mcg 0600 SAMIRA Administration Nystatin 0 gm 04/22/20 21:00 04/29/20 09:16 Nystatin Powder 15 Gm Bot TOP 1 applic BID SAMIRA Administration Potassium Chloride 20 meq 04/25/20 21:00 04/29/20 09:15 Potassium Chloride 20 Meq Tab PER TUBE 20 meq BID SAMIRA Administration Sertraline HCl 100 mg 04/23/20 09:00 04/29/20 09:15 Sertraline Hcl 100 Mg Tab PER TUBE 100 mg DAILY SAMIRA Administration Sodium Chloride 10 ml 04/21/20 21:00 04/29/20 09:16 Flush - Normal Saline 10 Ml Syringe IVF 10 ml Q12HR SAMIRA Administration - Exam General - other findings: In bed, following commands. On trach collar Heart: RRR, no murmur, no gallops, no rubs, normal peripheral pulses Respiratory - other findings: Bilateral coarse breath sounds. Gastrointestinal - other findings: Obese, nontender. Bowel sounds present. Neurological - other findings: Follows commands. Psychiatric - other findings: Oriented to self Hosp A/P - Plan This is a 65-year-old female patient with chronic respiratory failure chronic tracheostomy, cirrhosis admitted on account of acute on chronic respiratory fail ure, UTI and possible pneumonia. She is currently on diuresis steroids and antibiotic. Her condition is generally stable so far however no signs of significant improvement Planning to have a discussion with family on goals of care. Palliative care following. ID and pulmonology following. Sepsis Possibly from urinary/respiratory source. On ceftriaxone and azithromycin Currently generally stable Continue antibiotics ID following Acute hypoxic respiratory failure Pneumonia versus acute CHF exacerbation. We will continue diuresischeck echo Echo shows EF 50-55, Moderate dilated left atrium, enlarged right ventricle increased right ventricular systolic pressure. Continue trach collar. Continue antibiotics for now UTI Continue ceftriaxone and monitor. Urine growing Proteus mirabilis antibiotics as above Pneumonia Chest x-ray shows ongoing left infiltrate Currently on azithromycin and ceftriaxone IM butappreciate input into antibiotic management. Chronic respiratory failure with hypoxia Continue on tracheal care and trach collar with as needed suctioning. Pulmonology consulted. Positive blood cultures Blood culture growing staph epidermidis and Staphylococcus auricularis So likely contaminant Appreciate ID input on these. Liver cirrhosis Currently no acute decompensation add lactulose for BM-target 3/day And several bowel movements however no improvement in her mental statewe will hold Continue monitor. Thrombocytopenia Stable Secondary cirrhosis Continue monitoring. Hypothyroidism Continue on levothyroxine Microcytic anemia Possibly due to cirrhosis Chronicwe will monitor. Diabetes mellitus Continue insulin A1c 4.9 on 04/08/2018 Repeat A1c Continue correctional insulin. Generally poor clinical state Recurrent presentations to the ED Palliative care consulted for goals of care discussion Obesity VTE prophylaxisto start Lovenox
[2020-04-29] MEDS: Azithromycin 200 MG/5 ML Oral Suspension PO SCH ×2 (17:31→17:46)
[2020-04-29] MEDS: Enoxaparin Sodium 40 MG/0.4 ML SYRINGE SC SCH (21:39)
[2020-04-29] MEDS: cefTRIAXone\\ROCEPHIN 2 GM in Sodium Chloride 0.9% 100 ML IVPB SCH (21:52)
[2020-04-30] MEDS: Levothyroxine Sodium 100 MCG TAB PER TUBE SCH (05:50)
[2020-04-30] MEDS: Dextrose 50% Abboject 50 ML SYRINGE SLOW IVP PRN (05:50)
[2020-04-30] MEDS: Potassium Chloride 20 MEQ TAB PER TUBE SCH ×3 (09:39→22:12)
[2020-04-30] MEDS: Furosemide 40 MG/4 ML VIAL SLOW IVP SCH (09:40)
[2020-04-30] MEDS: Aspirin Chewable 81 MG TAB PER TUBE SCH (09:40)
[2020-04-30] MEDS: Gabapentin 300 MG CAP PO SCH ×3 (09:40→22:12)
[2020-04-30] MEDS: Famotidine/PF 20 mg/2ml Vial SLOW IVP SCH ×2 (09:41→21:48)
[2020-04-30] MEDS: Nystatin Powder 15 GM BOT TOP SCH ×2 (09:44→21:47)
--- NOTE | 2020-04-30 15:19 | PDOC.HOSPP ---
- Subjective Encounter Date: 04/30/20 Encounter Time: 12:00 Subjective: Patient was seen and examined in bed. She was noncommunicative. And were at the bedside with her. - Objective Vital Signs & Weight: Vital Signs (12 hours) Temp Pulse Resp Pulse Ox 04/30/20 13:48 79 24 H 93 L 04/30/20 11:58 97.2 F L 04/30/20 08:12 96 04/30/20 08:09 78 16 96 04/30/20 08:00 94 L 04/30/20 07:25 97.4 F L 04/30/20 04:00 98.5 F Weight Admit Weight 269 lb 4.8 oz Weight 269 lb 4.8 oz Most Recent Monitor Data Heart Rate from ECG 77 NIBP 114/60 NIBP BP-Mean 78 Respiration from ECG 19 SpO2 93 I&O: 04/29/20 04/30/20 05/01/20 06:59 06:59 06:59 Intake Total 300 Output Total 300 850 Balance 0 -850 Result Diagrams: 04/28/20 03:38 04/28/20 03:38 Additional Labs: Accuchecks 04/30/20 04/30/20 04/30/20 14:05 10:44 06:18 POC Glucose 84 70 92 04/29/20 16:56 POC Glucose 73 Hospitalist ROS - Medication Medications: Active Medications Generic Name Dose Route Start Last Admin Trade Name Freq PRN Reason Stop Dose Admin Acetaminophen 1,000 mg 04/21/20 20:31 04/30/20 05:50 Acetaminophen 500 Mg Tab PO 1,000 mg Q6H PRN Administration Mild Pain (1-3) Albuterol/Ipratropium 3 ml 04/22/20 13:00 04/30/20 13:48 Ipratropium/Albuterol Sulfate 3 Ml Neb NEB 3 ml 0900,1300,1700,2100 SAMIRA Administration Aspirin 81 mg 04/23/20 09:00 04/30/20 09:40 Aspirin Chewable 81 Mg Tab PER TUBE 81 mg QAM SAMIRA Administration Azithromycin 250 mg 04/29/20 18:00 04/29/20 17:46 Azithromycin 200 Mg/5 Ml Oral Suspension PO 250 mg 1800 SAMIRA Administration Dextrose/Water 25 gm 04/21/20 20:31 04/30/20 05:50 Dextrose 50% Abboject 50 Ml Syringe SLOW IVP 25 gm PRN PRN Administration Hypoglycemia Enoxaparin Sodium 40 mg 04/26/20 21:00 04/29/20 21:39 Enoxaparin Sodium 40 Mg/0.4 Ml Syringe SC Not Given 2100 SAMIRA Famotidine 20 mg 04/21/20 21:00 04/30/20 09:41 Famotidine/Pf 20 Mg/2ml Vial SLOW IVP Not Given Q12HR SAMIRA Furosemide 40 mg 04/29/20 09:00 04/30/20 09:40 Furosemide 40 Mg/4 Ml Vial SLOW IVP 40 mg DAILY SAMIRA Administration Gabapentin 300 mg 04/22/20 21:00 04/30/20 09:40 Gabapentin 300 Mg Cap PO 300 mg BID SAMIRA Administration Ceftriaxone Sodium 2 gm/ 100 mls @ 200 mls/hr 04/21/20 21:00 04/29/20 21:52 Sodium Chloride IVPB 100 mls Q24HR SAMIRA Administration Levothyroxine Sodium 137 mcg 04/23/20 06:00 04/30/20 05:50 Levothyroxine Sodium 100 Mcg Tab PER TUBE 137 mcg 0600 SAMIRA Administration Nystatin 0 gm 04/22/20 21:00 04/30/20 09:44 Nystatin Powder 15 Gm Bot TOP 1 applic BID SAMIRA Administration Potassium Chloride 20 meq 04/25/20 21:00 04/30/20 09:39 Potassium Chloride 20 Meq Tab PER TUBE 20 meq BID SAMIRA Administration Sertraline HCl 100 mg 04/23/20 09:00 04/30/20 09:39 Sertraline Hcl 100 Mg Tab PER TUBE 100 mg DAILY SAMIRA Administration Sodium Chloride 10 ml 04/21/20 21:00 04/30/20 09:44 Flush - Normal Saline 10 Ml Syringe IVF 10 ml Q12HR SAMIRA Administration - Exam General - other findings: In bed, trach collar in place, ill looking. Heart: RRR, no murmur, no gallops Respiratory - other findings: Coarse breath sounds bilaterally. Gastrointestinal - other findings: Soft, gastrostomy tube in place. Extremities - other findings: Bilateral edema Hosp A/P - Plan This is a 65-year-old female patient with chronic respiratory failure chronic tracheostomy, cirrhosis admitted on account of acute on chronic respiratory failure, UTI and possible pneumonia. She is currently on diuresis steroids and antibiotic. Her condition is generally stable so far however no signs of significant imp rovement Family visit if palliative care signed and todaynoted to give her a few more days to see how she would improve prior to any medical decision to be made. ID and pulmonology following. Sepsis Possibly from urinary/respiratory source/cellulitis. On ceftriaxone and azithromycin Currently generally stable Continue antibiotics ID following Acute hypoxic respiratory failure Pneumonia versus acute CHF exacerbation. We will continue diuresischeck echo Echo shows EF 50-55, Moderate dilated left atrium, enlarged right ventricle increased right ventricular systolic pressure. Continue trach collar. Continue antibiotics for now UTI Continue ceftriaxone and monitor. Urine growing Proteus mirabilis antibiotics as above Pneumonia Chest x-ray shows ongoing left infiltrate Currently on azithromycin and ceftriaxone IM butappreciate input into antibiotic management. Chronic respiratory failure with hypoxia Continue on tracheal care and trach collar with as needed suctioning. Pulmonology consulted. Positive blood cultures Blood culture growing staph epidermidis and Staphylococcus auricularis So likely contaminant Appreciate ID input on these. Liver cirrhosis Currently no acute decompensation add lactulose for BM-target 3/day And several bowel movements however no improvement in her mental statewe will hold Continue monitor. Thrombocytopenia Stable Secondary cirrhosis Continue monitoring. Hypothyroidism Continue on levothyroxine Microcytic anemia Possibly due to cirrhosis Chronicwe will monitor. Diabetes mellitus Continue insulin A1c 4.9 on 04/08/2018 Repeat A1c Continue correctional insulin. Generally poor clinical state Recurrent presentations to the ED Palliative care consulted for goals of care discussion Obesity VTE prophylaxisto start Lovenox
--- NOTE | 2020-04-30 17:31 | PRG ---
DATE OF SERVICE: 04/30/2020 SUBJECTIVE: Ms. Springer is kind of drowsy, hard time in communicating. She has a T-piece and tracheostomy. OBJECTIVE: VITAL SIGNS: Her sats are ranging from 94% to 96%. She has been afebrile. BP 120/70, heart rate 78, respiratory rate 18, and O2 saturation 94%. LUNGS: She has a midline in the left upper extremity, tracheostomy, and Magana catheter. Symmetric air entry. No obvious crackles or wheezing. HEART: S1, S2. Diminished heart sounds. Regular rate. ABDOMEN: Very pronounced panniculus. No tenderness. She has atrophy of musculature. EXTREMITIES: Lower extremities with some extension of the bilateral feet. No edema noted. LABORATORY DATA: White cell count is 7.3, hemoglobin 12.8, platelets 78. Sodium 142, creatinine 0.69, bilirubin 1.9, AST 108, ALT 36. Chest x-ray from the showed a left lower lobe infiltrate, basically an airspace opacity there. ASSESSMENT AND DISCUSSION: Obesity, lymphedema, KATE, tracheostomy cellulitis in the past, prior aspiration pneumonia, and Proteus in the urine with possible invasive UTI, currently on Rocephin, seems to be stabilizing, although she is still having a hard time, kind of borderline respiratory status right now even with a tracheostomy. Job ID: [id number]
[2020-04-30] MEDS: Azithromycin 200 MG/5 ML Oral Suspension PO SCH (18:17)
[2020-04-30] MEDS: cefTRIAXone\\ROCEPHIN 2 GM in Sodium Chloride 0.9% 100 ML IVPB SCH (21:45)
[2020-04-30] MEDS: Enoxaparin Sodium 40 MG/0.4 ML SYRINGE SC SCH (21:48)
[2020-05-01] MEDS: Levothyroxine Sodium 100 MCG TAB PER TUBE SCH (05:55)
[2020-05-01] MEDS: Dextrose 50% Abboject 50 ML SYRINGE SLOW IVP PRN (05:57)
[2020-05-01] MEDS: Potassium Chloride 20 MEQ TAB PER TUBE SCH ×2 (09:10→20:04)
[2020-05-01] MEDS: Furosemide 40 MG/4 ML VIAL SLOW IVP SCH (09:10)
[2020-05-01] MEDS: Aspirin Chewable 81 MG TAB PER TUBE SCH (09:10)
[2020-05-01] MEDS: Gabapentin 300 MG CAP PO SCH ×2 (09:10→20:04)
[2020-05-01] MEDS: Famotidine/PF 20 mg/2ml Vial SLOW IVP SCH ×2 (09:10→20:04)
[2020-05-01] MEDS: Nystatin Powder 15 GM BOT TOP SCH ×2 (09:11→20:05)
[2020-05-01 10:46] LABS: Anion Gap 11 mmol/L (10-20); BUN (Urea Nitrogen) 20 mg/dL (9.8-20.1); Calc. Creatinine Clearance 142 mL/min (70-130); Calcium 8.1 mg/dL (7.8-10.44); Carbon Dioxide 36 mmol/L (23-31); Chloride 102 mmol/L (98-107); Estimated GFR-MDRD 75; Glucose 90 mg/dL (80-115); Potassium 4.1 mmol/L (3.5-5.1); Sodium 145 mmol/L (136-145)
[2020-05-01 10:58] LABS: #Basophils 0.1 thou/uL (0.0-0.2); #Eosinphils 0.2 thou/uL (0.0-0.7); #Lymphocytes 1.5 thou/uL (1.20-3.40); #Monocytes 0.7 thou/uL (0.11-0.59); #Neutrophils 3.8 thou/uL (1.40-6.50); %Lymphocytes 23.7 % (21.0-51.0); %Neutrophils 60.3 % (42.0-75.0); Hemoglobin 13.2 g/dL (12.0-16.0); Mean Corpuscular Hemoglobin 33.1 pg (27.0-31.0); Mean Platelet Volume 8.9 fL (7.4-10.4); Platelet Count 70 thou/uL (130-400); RBC Distribution Width 17.6 % (11.5-14.5); Red Blood Cell (RBC) Count 3.99 mill/uL (4.20-5.40); White Blood Cell (WBC) Count 6.2 thou/uL (4.8-10.8)
[2020-05-01 11:24] LABS: MDiff Complete? YES; Platelet Morphology Comment Appears Decreased; Polychromasia SLIGHT = 2-3 cells (100X) (0-2/hpf); Target Cells SLIGHT = 2-5 cells (100X) (0-1/hpf)
[2020-05-01] MEDS: Dextrose 10% in Water 1,000 ML IV SCH (12:21)
--- NOTE | 2020-05-01 13:28 | PDOC.HOSPP ---
- Subjective Encounter Date: 05/01/20 Encounter Time: 11:30 Subjective: Patient was seen and examined in bed. She was still on trach collar. Followed commands with the help of nurse who was interpreting No significant events overnight. No significant improvement either - Objective Vital Signs & Weight: Vital Signs (12 hours) Temp Pulse Resp Pulse Ox 05/01/20 11:22 97.0 F L 05/01/20 08:00 94 L 05/01/20 07:33 97.8 F 05/01/20 07:31 96 05/01/20 07:29 92 18 95 05/01/20 03:57 97.4 F L Weight Admit Weight 269 lb 4.8 oz Weight 269 lb 4.8 oz Most Recent Monitor Data Heart Rate from ECG 81 NIBP 114/66 NIBP BP-Mean 82 Respiration from ECG 17 SpO2 96 I&O: 04/30/20 05/01/20 05/02/20 06:59 06:59 06:59 Intake Total 200 Output Total 850 1525 Balance -850 -1326 Result Diagrams: 05/01/20 10:08 05/01/20 10:07 Additional Labs: Accuchecks 05/01/20 05/01/20 04/30/20 10:32 05:40 20:38 POC Glucose 91 67 L 80 04/30/20 04/30/20 04/30/20 19:07 16:14 14:05 POC Glucose 99 72 84 04/30/20 04/29/20 05:47 20:18 POC Glucose 63 L 70 Hospitalist ROS - Medication Medications: Active Medications Generic Name Dose Route Start Last Admin Trade Name Freq PRN Reason Stop Dose Admin Acetaminophen 1,000 mg 04/21/20 20:31 04/30/20 05:50 Acetaminophen 500 Mg Tab PO 1,000 mg Q6H PRN Administration Mild Pain (1-3) Albuterol/Ipratropium 3 ml 04/22/20 13:00 05/01/20 07:29 Ipratropium/Albuterol Sulfate 3 Ml Neb NEB 3 ml 0900,1300,1700,2100 SAMIRA Administration Aspirin 81 mg 04/23/20 09:00 05/01/20 09:10 Aspirin Chewable 81 Mg Tab PER TUBE 81 mg QAM SAMIRA Administration Azithromycin 250 mg 04/29/20 18:00 04/30/20 18:17 Azithromycin 200 Mg/5 Ml Oral Suspension PO 250 mg 1800 SAMIRA Administration Dextrose/Water 25 gm 04/21/20 20:31 05/01/20 05:57 Dextrose 50% Abboject 50 Ml Syringe SLOW IVP 25 gm PRN PRN Administration Hypoglycemia Enoxaparin Sodium 40 mg 04/26/20 21:00 04/30/20 21:48 Enoxaparin Sodium 40 Mg/0.4 Ml Syringe SC Not Given 2100 SAMIRA Famotidine 20 mg 04/21/20 21:00 05/01/20 09:10 Famotidine/Pf 20 Mg/2ml Vial SLOW IVP Not Given Q12HR SAMIRA Furosemide 40 mg 04/29/20 09:00 05/01/20 09:10 Furosemide 40 Mg/4 Ml Vial SLOW IVP 40 mg DAILY SAMIRA Administration Gabapentin 300 mg 04/22/20 21:00 05/01/20 09:10 Gabapentin 300 Mg Cap PO 300 mg BID SAMIRA Administration Ceftriaxone Sodium 2 gm/ 100 mls @ 200 mls/hr 04/21/20 21:00 04/30/20 21:45 Sodium Chloride IVPB 100 mls Q24HR SAMIRA Administration Dextrose/Water 1,000 mls @ 50 mls/hr 05/01/20 10:45 05/01/20 12:21 Dextrose 10% In Water IV 1,000 mls .Q20H SAMIRA Administration Levothyroxine Sodium 137 mcg 04/23/20 06:00 05/01/20 05:55 Levothyroxine Sodium 100 Mcg Tab PER TUBE 137 mcg 0600 SAMIRA Administration Nystatin 0 gm 04/22/20 21:00 05/01/20 09:11 Nystatin Powder 15 Gm Bot TOP 1 applic BID SAMIRA Administration Potassium Chloride 20 meq 04/25/20 21:00 05/01/20 09:10 Potassium Chloride 20 Meq Tab PER TUBE 20 meq BID SAMIRA Administration Sertraline HCl 100 mg 04/23/20 09:00 05/01/20 09:10 Sertraline Hcl 100 Mg Tab PER TUBE 100 mg DAILY SAMIRA Administration Sodium Chloride 10 ml 04/21/20 21:00 05/01/20 09:11 Flush - Normal Saline 10 Ml Syringe IVF 10 ml Q12HR SAMIRA Administration - Exam General - other findings: Awake, chronically ill looking. In mild respiratory distress Heart - other findings: S1-S2 present. No murmurs gallops or rubs. Respiratory - other findings: Coarse breath sounds bilaterally. Gastrointestinal - other findings: Full, nontender. G-tube in place. Extremities - other findings: Bilateral pedal edema. Skin - other findings: Oriented to self. Hosp A/P - Plan This is a 65-year-old female patient with chronic respiratory failure chronic tracheostomy, cirrhosis admitted on account of acute on chronic respiratory failure, UTI and possible pneumonia. She is currently on diuresis steroids and antibiotic. Her condition is generally stable so far however no signs of significant improvement Family visit with palliative care with son and todaynoted to give her a few more days to see how she would improve prior to any medical decision to be made. She is having dysphagia and not having feeds. Also family does not want feeding through G-tube. But she is running low ID and pulmonology following. Dysphagia Combination of factors including altered mental status. Not eating gastric tube at the moment. We will start D10 at 50 Ask permission from family to start using G-tube. Sepsis Possibly from urinary/respiratory source/cellulitis. Has severe pressure ulcers sacral regionwound care following. On ceftriaxone and azithromycin Currently generally stable Continue antibiotics ID following Acute on chronic hypoxic respiratory failure Pneumonia versus acute CHF exacerbation. We will continue diuresischeck echo Echo shows EF 50-55, Moderate dilated left atrium, enlarged right ventricle increased right ventricular systolic pressure. Continue trach collar. Continue antibiotics for now UTI Continue ceftriaxone and monitor. Urine growing Proteus mirabilis antibiotics as above Pneumonia Chest x-ray shows ongoing left infiltrate Currently on azithromycin and ceftriaxone IM butappreciate input into antibiotic management. Positive blood cultures Blood culture growing staph epidermidis and Staphylococcus auricularis So likely contaminant Appreciate ID input on these. Liver cirrhosis Currently no acute decompensation add lactulose for BM-target 3/day And several bowel movements however no improvement in her mental statewe will hold Continue monitor. Thrombocytopenia Stable Secondary cirrhosis Continue monitoring. Hypothyroidism Continue on levothyroxine Microcytic anemia Possibly due to cirrhosis Chronicwe will monitor. Diabetes mellitus Continue insulin A1c 4.9 on 04/08/2018 Repeat A1c Continue correctional insulin. Generally poor clinical state Recurrent presentations to the ED Palliative care consulted for goals of care discussion Obesity VTE prophylaxisto start Lovenox
[2020-05-01] MEDS: Azithromycin 200 MG/5 ML Oral Suspension PO SCH (17:47)
[2020-05-01] MEDS: Enoxaparin Sodium 40 MG/0.4 ML SYRINGE SC SCH (20:04)
[2020-05-01] MEDS: cefTRIAXone\\ROCEPHIN 2 GM in Sodium Chloride 0.9% 100 ML IVPB SCH (20:04)
[2020-05-02] MEDS: Dextrose 10% in Water 1,000 ML IV SCH ×2 (00:25→09:00)
[2020-05-02] MEDS: Levothyroxine Sodium 100 MCG TAB PER TUBE SCH (05:59)
[2020-05-02 07:57] VITALS: BP 99/49
[2020-05-02] MEDS: Furosemide 40 MG/4 ML VIAL SLOW IVP SCH (08:38)
[2020-05-02] MEDS: Gabapentin 300 MG CAP PO SCH ×2 (08:39→21:23)
[2020-05-02] MEDS: Potassium Chloride 20 MEQ TAB PER TUBE SCH ×2 (08:39→21:23)
[2020-05-02] MEDS: Aspirin Chewable 81 MG TAB PER TUBE SCH (08:39)
[2020-05-02] MEDS: Nystatin Powder 15 GM BOT TOP SCH ×2 (09:00→21:25)
[2020-05-02] MEDS: Famotidine/PF 20 mg/2ml Vial SLOW IVP SCH ×2 (09:00→21:24)
--- NOTE | 2020-05-02 15:29 | PDOC.HOSPP ---
- Subjective Encounter Date: 05/02/20 Encounter Time: 15:27 Subjective: Patient was seen and examined in bed. Remained generally stable overnight. No significant improvement. - Objective Vital Signs & Weight: Vital Signs (12 hours) Temp Pulse Resp BP Pulse Ox 05/02/20 14:06 75 16 93 L 05/02/20 11:05 97.2 F L 05/02/20 10:48 74 23 H 95 05/02/20 07:57 89 L 05/02/20 07:54 71 89 H 99/49 L 89 L 05/02/20 07:51 91 L 05/02/20 07:48 70 15 90 L 05/02/20 07:40 97.0 F L Weight Admit Weight 269 lb 4.8 oz Weight 269 lb 4.8 oz Most Recent Monitor Data Heart Rate from ECG 75 NIBP 97/57 NIBP BP-Mean 70 Respiration from ECG 17 SpO2 95 I&O: 05/01/20 05/02/20 05/03/20 06:59 06:59 06:59 Intake Total 200 1052 Output Total 1525 850 Balance -1325 202 Result Diagrams: 05/01/20 10:08 05/01/20 10:07 Additional Labs: Accuchecks 05/02/20 05/02/20 05/02/20 12:01 05:42 00:14 POC Glucose 102 H 105 H 98 05/01/20 05/01/20 20:25 16:55 POC Glucose 100 102 H Hospitalist ROS - Medication Medications: Active Medications Generic Name Dose Route Start Last Admin Trade Name Freq PRN Reason Stop Dose Admin Acetaminophen 1,000 mg 04/21/20 20:31 04/30/20 05:50 Acetaminophen 500 Mg Tab PO 1,000 mg Q6H PRN Administration Mild Pain (1-3) Albuterol/Ipratropium 3 ml 04/22/20 13:00 05/02/20 14:06 Ipratropium/Albuterol Sulfate 3 Ml Neb NEB 3 ml 0900,1300,1700,2100 SAMIRA Administration Aspirin 81 mg 04/23/20 09:00 05/02/20 08:39 Aspirin Chewable 81 Mg Tab PER TUBE 81 mg QAM SAMIRA Administration Azithromycin 250 mg 04/29/20 18:00 05/01/20 17:47 Azithromycin 200 Mg/5 Ml Oral Suspension PO 250 mg 1800 SAMIRA Administration Dextrose/Water 25 gm 04/21/20 20:31 05/01/20 05:57 Dextrose 50% Abboject 50 Ml Syringe SLOW IVP 25 gm PRN PRN Administration Hypoglycemia Enoxaparin Sodium 40 mg 04/26/20 21:00 05/01/20 20:04 Enoxaparin Sodium 40 Mg/0.4 Ml Syringe SC Not Given 2100 SAMIRA Famotidine 20 mg 04/21/20 21:00 05/02/20 09:00 Famotidine/Pf 20 Mg/2ml Vial SLOW IVP 20 mg Q12HR SAMIRA Administration Furosemide 40 mg 04/29/20 09:00 05/02/20 08:38 Furosemide 40 Mg/4 Ml Vial SLOW IVP 40 mg DAILY SAMIRA Administration Gabapentin 300 mg 04/22/20 21:00 05/02/20 08:39 Gabapentin 300 Mg Cap PO 300 mg BID SAMIRA Administration Ceftriaxone Sodium 2 gm/ 100 mls @ 200 mls/hr 04/21/20 21:00 05/01/20 20:04 Sodium Chloride IVPB 100 mls Q24HR SAMIRA Administration Dextrose/Water 1,000 mls @ 50 mls/hr 05/01/20 10:45 05/02/20 09:00 Dextrose 10% In Water IV 1,000 mls .Q20H SAMIRA Administration Levothyroxine Sodium 137 mcg 04/23/20 06:00 05/02/20 05:59 Levothyroxine Sodium 100 Mcg Tab PER TUBE 137 mcg 0600 SAMIRA Administration Nystatin 0 gm 04/22/20 21:00 05/02/20 09:00 Nystatin Powder 15 Gm Bot TOP 1 applic BID SAMIRA Administration Potassium Chloride 20 meq 04/25/20 21:00 05/02/20 08:39 Potassium Chloride 20 Meq Tab PER TUBE 20 meq BID SAMIRA Administration Sertraline HCl 100 mg 04/23/20 09:00 05/02/20 08:39 Sertraline Hcl 100 Mg Tab PER TUBE 100 mg DAILY SAMIRA Administration Sodium Chloride 10 ml 04/21/20 21:00 05/02/20 08:39 Flush - Normal Saline 10 Ml Syringe IVF 10 ml Q12HR SAMIRA Administration - Exam General - other findings: Patient in bed, trach collar in place, minimally communicative. Heart: RRR, no murmur, no gallops, no rubs Respiratory - other findings: Reduced air movement bilaterally. Mild coarseness bilaterally. Gastrointestinal - other findings: G-tube in place. Obese, bowel sounds present. Extremities: no cyanosis, no clubbing, 1+ LE edema Hosp A/P - Plan This is a 65-year-old female patient with chronic respiratory failure chronic tracheostomy, cirrhosis admitted on account of acute on chronic respiratory failure, UTI and possible pneumonia. She is currently on diuresis, steroids and antibiotic. Her condition is generally stable so far however no signs of significant improvement We will continue treatment for UTI and possible pneumonia. Diuresis for heart failure Son has permitted use of G-tubewe will start using given dysphagia. We will continue monitoring and revisit PEG discussion of goals of care with son in a couple of days. ID and pulmonology following. Dysphagia Combination of factors including altered mental status. Not eating gastric tube at the moment. We will start D10 at 50 Ask permission from family to start using G-tube. Sepsis Possibly from urinary/respiratory source/cellulitis. Has severe pressure ulcers sacral regionwound care following. On ceftriaxone and azithromycin Currently generally stable Continue antibiotics ID following Acute on chronic hypoxic respiratory failure Pneumonia versus acute CHF exacerbation. We will continue diuresischeck echo Echo shows EF 50-55, Moderate dilated left atrium, enlarged right ventricle increased right ventricular systolic pressure. Continue trach collar. Continue antibiotics for now UTI Continue ceftriaxone and monitor. Urine growing Proteus mirabilis antibiotics as above Pneumonia Chest x-ray shows ongoing left infiltrate Currently on azithromycin and ceftriaxone IM butappreciate input into antibiotic management. Positive blood cultures Blood culture growing staph epidermidis and Staphylococcus auricularis So likely contaminant Appreciate ID input on these. Liver cirrhosis Currently no acute decompensation add lactulose for BM-target 3/day And several bowel movements however no improvement in her mental statewe will hold Continue monitor. Thrombocytopenia Stable Secondary cirrhosis Continue monitoring. Hypothyroidism Continue on levothyroxine Microcytic anemia Possibly due to cirrhosis Chronicwe will monitor. Diabetes mellitus Continue insulin A1c 4.9 on 04/08/2018 Repeat A1c Continue correctional insulin. Generally poor clinical state Recurrent presentations to the ED Palliative care consulted for goals of care discussion Obesity VTE prophylaxisto start Lovenox
[2020-05-02] MEDS: Azithromycin 200 MG/5 ML Oral Suspension PO SCH (17:57)
[2020-05-02] MEDS: cefTRIAXone\\ROCEPHIN 2 GM in Sodium Chloride 0.9% 100 ML IVPB SCH (21:23)
[2020-05-02] MEDS: Enoxaparin Sodium 40 MG/0.4 ML SYRINGE SC SCH (21:24)
[2020-05-03] MEDS: Levothyroxine Sodium 100 MCG TAB PER TUBE SCH (05:28)
[2020-05-03] MEDS: Dextrose 10% in Water 1,000 ML IV SCH (05:28)
[2020-05-03] MEDS: Potassium Chloride 20 MEQ TAB PER TUBE SCH ×2 (08:41→21:44)
[2020-05-03] MEDS: Aspirin Chewable 81 MG TAB PER TUBE SCH (08:41)
[2020-05-03] MEDS: Gabapentin 300 MG CAP PO SCH ×2 (08:42→21:45)
[2020-05-03] MEDS: Furosemide 40 MG/4 ML VIAL SLOW IVP SCH (08:42)
[2020-05-03] MEDS: Famotidine/PF 20 mg/2ml Vial SLOW IVP SCH ×2 (08:42→21:45)
[2020-05-03] MEDS: Nystatin Powder 15 GM BOT TOP SCH ×2 (10:02→21:50)
[2020-05-03] MEDS: Azithromycin 200 MG/5 ML Oral Suspension PO SCH (17:25)
[2020-05-03 20:20] LABS: Actual Bicarbonate (HCO3a) 43.4 mEq/L (22-28); Base Excess (BEa) 11.6 mEq/L (-2.0 to +3.0); Calcium, Ionized (arterial) 1.13 mmol/L (1.12-1.30); Carboxyhemoglobin (COHb) 1.5 gm% (0.0-3.0); Hemoglobin (Hb) 13.9 g/dL (12.0-16.0); O2 Tension (PaO2), arterial 61.4 mmHg (> 80.0); Potassium - ABG Lab 3.92 mmol/L (3.70-5.30)
[2020-05-03 20:22] LABS: CO2 Tension 101.5 mmHg (35.0-45.0); pH, Arterial 7.25 (7.35-7.45)
[2020-05-03 20:23] LABS: ALV-art Gradient 510.465 mmHg (0-20); Puncture Site RRA
--- NOTE | 2020-05-03 20:25 | PDOC.EVN ---
Event Note - Event Note Event Note: Nursing called. patient altered, hypoxic. RT getting ABG. Patient in afib rvr 120s-140s, BP 109/80. Ordered POC glucose, CXR, get lab to bedside. Dr. Welch to go and evaluate.
[2020-05-03 21:00] LABS: #Basophils 0.1 thou/uL (0.0-0.2); #Eosinphils 0.1 thou/uL (0.0-0.7); #Lymphocytes 2.2 thou/uL (1.20-3.40); #Neutrophils 4.2 thou/uL (1.40-6.50); %Basophils 1.1 % (0.0-1.0); %Eosinophils 1.7 % (0.0-10.0); %Lymphocytes 29.2 % (21.0-51.0); %Monocytes 12.9 % (0.0-10.0); %Neutrophils 55.1 % (42.0-75.0); Hemoglobin 13.3 g/dL (12.0-16.0); Mean Corpuscular HGB CONC 30.8 g/dL (32.0-36.0); Mean Platelet Volume 9.9 fL (7.4-10.4); Platelet Count 65 thou/uL (130-400); Red Blood Cell (RBC) Count 4.03 mill/uL (4.20-5.40); White Blood Cell (WBC) Count 7.6 thou/uL (4.8-10.8)
[2020-05-03] MEDS ORDERED: Metoprolol Tartrate 5 MG/5 ML VIAL IVP SCH (21:00)
[2020-05-03 21:16] LABS: Anion Gap 12 mmol/L (10-20); BUN (Urea Nitrogen) 15 mg/dL (9.8-20.1); Calc. Creatinine Clearance 142 mL/min (70-130); Calcium 7.5 mg/dL (7.8-10.44); Carbon Dioxide 34 mmol/L (23-31); Chloride 98 mmol/L (98-107); Estimated GFR-MDRD 75; Glucose 133 mg/dL (80-115); Potassium 4.4 mmol/L (3.5-5.1); Sodium 140 mmol/L (136-145)
--- NOTE | 2020-05-03 21:21 | RAD ---
CHEST ONE VIEW: 05/03/20 HISTORY: Dyspnea. COMPARISON: 04/28/20 exam. Heart size is enlarged. Parenchymal lung changes are fairly similar to the appearance on the prior ex amination. Left perihilar markings and lower lobe markings are similar. The right upper lobe parench ymal change may be minimally changed but this is probably just related to differences in positioning. Tracheostomy tube remains in place. IMPRESSION: Essentially stable exam. POS: ZULEYMA
[2020-05-03] MEDS: cefTRIAXone\\ROCEPHIN 2 GM in Sodium Chloride 0.9% 100 ML IVPB SCH (21:45)
[2020-05-03] MEDS: Enoxaparin Sodium 40 MG/0.4 ML SYRINGE SC SCH (21:49)
--- NOTE | 2020-05-03 23:15 | PDOC.HOSPP ---
- Subjective Encounter Date: 05/03/20 Encounter Time: 11:00 Subjective: Patient was seen and examined in bed. No significant change overnight. Patient is still not very responsive. - Objective Vital Signs & Weight: Vital Signs (12 hours) Temp Pulse Resp Pulse Ox 05/03/20 19:51 94 L 05/03/20 19:49 95 05/03/20 19:18 97.2 F L 05/03/20 15:36 97.4 F L 05/03/20 14:10 85 21 H 94 L 05/03/20 11:49 97.2 F L Weight Admit Weight 269 lb 4.8 oz Weight 269 lb 4.8 oz Most Recent Monitor Data Heart Rate from ECG 122 NIBP 111/79 NIBP BP-Mean 89 Respiration from ECG 22 SpO2 95 I&O: 05/02/20 05/03/20 05/04/20 06:59 06:59 06:59 Intake Total 1052 1930 1451 Output Total 850 700 350 Balance 202 1230 1101 Result Diagrams: 05/03/20 20:46 05/03/20 20:46 Additional Labs: Accuchecks 05/03/20 05/03/20 05/03/20 22:17 20:27 16:44 POC Glucose 111 H 134 H 109 H 05/03/20 05/03/20 10:38 05:46 POC Glucose 152 H 128 H Hospitalist ROS - Medication Medications: Active Medications Generic Name Dose Route Start Last Admin Trade Name Freq PRN Reason Stop Dose Admin Acetaminophen 1,000 mg 04/21/20 20:31 04/30/20 05:50 Acetaminophen 500 Mg Tab PO 1,000 mg Q6H PRN Administration Mild Pain (1-3) Albuterol/Ipratropium 3 ml 04/22/20 13:00 05/03/20 19:49 Ipratropium/Albuterol Sulfate 3 Ml Neb NEB 3 ml 0900,1300,1700,2100 SAMIRA Administration Aspirin 81 mg 04/23/20 09:00 05/03/20 08:41 Aspirin Chewable 81 Mg Tab PER TUBE 81 mg QAM SAMIRA Administration Azithromycin 250 mg 04/29/20 18:00 05/03/20 17:25 Azithromycin 200 Mg/5 Ml Oral Suspension PO 250 mg 1800 SAMIRA Administration Dextrose/Water 25 gm 04/21/20 20:31 05/01/20 05:57 Dextrose 50% Abboject 50 Ml Syringe SLOW IVP 25 gm PRN PRN Administration Hypoglycemia Enoxaparin Sodium 40 mg 04/26/20 21:00 05/03/20 21:49 Enoxaparin Sodium 40 Mg/0.4 Ml Syringe SC Not Given 2100 SAMIRA Famotidine 20 mg 04/21/20 21:00 05/03/20 21:45 Famotidine/Pf 20 Mg/2ml Vial SLOW IVP 20 mg Q12HR SAMIRA Administration Furosemide 40 mg 04/29/20 09:00 05/03/20 08:42 Furosemide 40 Mg/4 Ml Vial SLOW IVP 40 mg DAILY SAMIRA Administration Gabapentin 300 mg 04/22/20 21:00 05/03/20 21:45 Gabapentin 300 Mg Cap PO 300 mg BID SAMIRA Administration Ceftriaxone Sodium 2 gm/ 100 mls @ 200 mls/hr 04/21/20 21:00 05/03/20 21:45 Sodium Chloride IVPB 100 mls Q24HR SAMIRA Administration Dextrose/Water 1,000 mls @ 50 mls/hr 05/01/20 10:45 05/03/20 05:28 Dextrose 10% In Water IV 1,000 mls .Q20H SAMIRA Administration Levothyroxine Sodium 137 mcg 04/23/20 06:00 05/03/20 05:28 Levothyroxine Sodium 100 Mcg Tab PER TUBE 137 mcg 0600 SAMIRA Administration Nystatin 0 gm 04/22/20 21:00 05/03/20 21:50 Nystatin Powder 15 Gm Bot TOP 1 applic BID SAMIRA Administration Potassium Chloride 20 meq 04/25/20 21:00 05/03/20 21:44 Potassium Chloride 20 Meq Tab PER TUBE 20 meq BID SAMIRA Administration Sertraline HCl 100 mg 04/23/20 09:00 05/03/20 08:42 Sertraline Hcl 100 Mg Tab PER TUBE 100 mg DAILY SAMIRA Administration Sodium Chloride 10 ml 04/21/20 21:00 05/03/20 21:50 Flush - Normal Saline 10 Ml Syringe IVF Not Given Q12HR SAMIRA - Exam General - other findings: Patient ill, on trach collar. Not actively responding. Neck: supple, no JVD, no lymphadenopathy Heart: RRR, no murmur, no gallops, no rubs Respiratory - other findings: Reduced air entry bilaterally. Occasional rhonchi. On trach collar. Gastrointestinal: soft, non-distended Extremities: no cyanosis, no clubbing, 1+ LE edema Neurological - other findings: Patient is hardly communicative. Opens eyes when called. Psychiatric: somnolent Hosp A/P - Plan This is a 65-year-old female patient with chronic respiratory failure chronic tracheostomy, cirrhosis admitted on account of acute on chronic respiratory failure, UTI and possible pneumonia. She is currently on diuresis, steroids and antibiotic. Her condition deteriorated slightly overnight with worsening mental state. We will continue treatment for UTI and possible pneumonia. Diuresis for heart failure Son has permitted use of G-tubewe will start using given dysphagia. ID and pulmonology following. Sepsis Possibly from urinary/respiratory source/cellulitis. Has severe pressure ulcers sacral regionwound care following. On ceftriaxone and azithromycin Continue antibiotics ID following Acute on chronic hypoxic respiratory failure Pneumonia versus acute CHF exacerbation. We will continue diuresischeck echo Echo shows EF 50-55, Moderate dilated left atrium, enlarged right ventricle increased right ventricular systolic pressure. Continue trach collar. Continue antibiotics for now UTI Continue ceftriaxone and monitor. Urine growing Proteus mirabilis antibiotics as above Pneumonia Chest x-ray shows ongoing left infiltrate Currently on azithromycin and ceftriaxone IM butappreciate input into antibiotic management. Positive blood cultures Blood culture growing staph epidermidis and Staphylococcus auricularis So likely contaminant ID evaluated. Liver cirrhosis Currently no acute decompensation add lactulose for BM-target 3/day And several bowel movements however no improvement in her mental statewe will hold Continue monitor. Thrombocytopenia Stable Secondary cirrhosis Continue monitoring. Hypothyroidism Continue on levothyroxine Microcytic anemia Possibly due to cirrhosis Chronicwe will monitor. Diabetes mellitus Continue insulin A1c 4.9 on 04/08/2018 Repeat A1c Continue correctional insulin. Generally poor clinical state Recurrent presentations to the ED Palliative care consulted for goals of care discussion patient son and father wanted to continue management for a few more days. VTE prophylaxisto start Lovenox
--- NOTE | 2020-05-03 23:25 | PDOC.EVN ---
Event Note - Event Note Event Note: At about 7 PM patient became more altered. ABG showed worsening acidosis with increasing bicarb above 100s. Patient son was called and situation was discussed with him. Consultation with his father decided to make her DNAR Given her poor clinical state initial labs were drawn She had A. fib with RVRwas given metoprolol Plan was to continue treatment but not any more aggressive. This was discussed with pulmonology
[2020-05-04] MEDS: Dextrose 10% in Water 1,000 ML IV SCH (02:03)
[2020-05-04] MEDS: Levothyroxine Sodium 100 MCG TAB PER TUBE SCH (06:07)
[2020-05-04] MEDS: Gabapentin 300 MG CAP PO SCH ×2 (09:02→20:34)
[2020-05-04] MEDS: Potassium Chloride 20 MEQ TAB PER TUBE SCH ×2 (09:02→20:34)
[2020-05-04] MEDS: Famotidine/PF 20 mg/2ml Vial SLOW IVP SCH ×2 (09:02→20:35)
[2020-05-04] MEDS: Aspirin Chewable 81 MG TAB PER TUBE SCH (09:02)
[2020-05-04] MEDS: Nystatin Powder 15 GM BOT TOP SCH ×2 (09:02→20:34)
[2020-05-04] MEDS: Furosemide 40 MG/4 ML VIAL SLOW IVP SCH (09:02)
[2020-05-04] MEDS ORDERED: Furosemide 40 MG/4 ML VIAL SLOW IVP SCH (09:45)
--- NOTE | 2020-05-04 12:01 | PDOC.HOSPP ---
- Subjective Encounter Date: 05/04/20 Encounter Time: 09:00 Subjective: awake, in resp distress, not oriented or follows verbal stimuli - Objective Vital Signs & Weight: Vital Signs (12 hours) Temp Pulse Resp Pulse Ox 05/04/20 11:26 97.2 F L 05/04/20 08:00 95 05/04/20 07:15 97.1 F L 05/04/20 06:58 73 28 H 05/04/20 04:03 97.4 F L Weight Admit Weight 269 lb 4.8 oz Weight 269 lb 4.8 oz Most Recent Monitor Data Heart Rate from ECG 79 NIBP 159/105 NIBP BP-Mean 123 Respiration from ECG 37 SpO2 95 I&O: 05/03/20 05/04/20 05/05/20 06:59 06:59 06:59 Intake Total 1930 2860 297 Output Total 700 500 Balance 1230 2360 297 Result Diagrams: 05/03/20 20:46 05/03/20 20:46 Additional Labs: Accuchecks 05/04/20 05/04/20 05/04/20 10:27 09:18 05:39 POC Glucose 144 H 132 H 136 H 05/03/20 05/03/20 05/03/20 22:17 20:27 16:44 POC Glucose 111 H 134 H 109 H Hospitalist ROS - Medication Medications: Active Medications Generic Name Dose Route Start Last Admin Trade Name Freq PRN Reason Stop Dose Admin Acetaminophen 1,000 mg 04/21/20 20:31 04/30/20 05:50 Acetaminophen 500 Mg Tab PO 1,000 mg Q6H PRN Administration Mild Pain (1-3) Albuterol/Ipratropium 3 ml 04/22/20 13:00 05/04/20 06:58 Ipratropium/Albuterol Sulfate 3 Ml Neb NEB 3 ml 0900,1300,1700,2100 SAMIRA Administration Aspirin 81 mg 04/23/20 09:00 05/04/20 09:02 Aspirin Chewable 81 Mg Tab PER TUBE 81 mg QAM SAMIRA Administration Azithromycin 250 mg 04/29/20 18:00 05/03/20 17:25 Azithromycin 200 Mg/5 Ml Oral Suspension PO 250 mg 1800 SAMIRA Administration Dextrose/Water 25 gm 04/21/20 20:31 05/01/20 05:57 Dextrose 50% Abboject 50 Ml Syringe SLOW IVP 25 gm PRN PRN Administration Hypoglycemia Enoxaparin Sodium 40 mg 04/26/20 21:00 05/03/20 21:49 Enoxaparin Sodium 40 Mg/0.4 Ml Syringe SC Not Given 2100 SAMIRA Famotidine 20 mg 04/21/20 21:00 05/04/20 09:02 Famotidine/Pf 20 Mg/2ml Vial SLOW IVP 20 mg Q12HR SAMIRA Administration Furosemide 40 mg 04/29/20 09:00 05/04/20 09:02 Furosemide 40 Mg/4 Ml Vial SLOW IVP 40 mg DAILY SAMIRA Administration Furosemide 40 mg 05/04/20 09:45 05/04/20 11:04 Furosemide 40 Mg/4 Ml Vial SLOW IVP 05/04/20 12:00 Not Given NOW SAMIRA Gabapentin 300 mg 04/22/20 21:00 05/04/20 09:02 Gabapentin 300 Mg Cap PO 300 mg BID SAMIRA Administration Ceftriaxone Sodium 2 gm/ 100 mls @ 200 mls/hr 04/21/20 21:00 05/03/20 21:45 Sodium Chloride IVPB 100 mls Q24HR SAMIRA Administration Dextrose/Water 1,000 mls @ 50 mls/hr 05/01/20 10:45 05/04/20 02:03 Dextrose 10% In Water IV 1,000 mls .Q20H SAMIRA Administration Levothyroxine Sodium 137 mcg 04/23/20 06:00 05/04/20 06:07 Levothyroxine Sodium 100 Mcg Tab PER TUBE 137 mcg 0600 SAMIRA Administration Nystatin 0 gm 04/22/20 21:00 05/04/20 09:02 Nystatin Powder 15 Gm Bot TOP 1 applic BID SAMIRA Administration Potassium Chloride 20 meq 04/25/20 21:00 05/04/20 09:02 Potassium Chloride 20 Meq Tab PER TUBE 20 meq BID SAMIRA Administration Sertraline HCl 100 mg 04/23/20 09:00 05/04/20 09:02 Sertraline Hcl 100 Mg Tab PER TUBE 100 mg DAILY SAMIRA Administration Sodium Chloride 10 ml 04/21/20 21:00 05/04/20 09:02 Flush - Normal Saline 10 Ml Syringe IVF 10 ml Q12HR SAMIRA Administration - Exam General Appearance: ill appearing Eye: PERRL, anicteric sclera ENT: no oropharyngeal lesions, dry oral mucosa Neck: supple, no JVD Heart: RRR, no murmur Respiratory: no wheezes, rales, rhonchi Gastrointestinal: soft, non-tender, non-distended, normal bowel sounds Extremities: no cyanosis, 2+ LE edema Neurological: cranial nerve grossly intact, no focal deficits Hosp A/P (1) Acute on chronic respiratory failure with hypoxia and hypercapnia Code(s): J96.21 - ACUTE AND CHRONIC RESPIRATORY FAILURE WITH HYPOXIA; J96.22 - ACUTE AND CHRONIC RESPIRATORY FAILURE WITH HYPERCAPNIA Status: Acute (2) Aspiration pneumonia Code(s): J69.0 - PNEUMONITIS DUE TO INHALATION OF FOOD AND VOMIT Status: Acute Qualifiers: Aspiration pneumonia type: due to regurgitated food Laterality: bilateral (3) UTI (urinary tract infection) Status: Acute Qualifiers: Urinary tract infection type: acute cystitis Hematuria presence: without hematuria Qualified Code(s): N30.00 - Acute cystitis without hematuria (4) Acute metabolic encephalopathy Code(s): G93.41 - METABOLIC ENCEPHALOPATHY Status: Acute (5) Anasarca Code(s): R60.1 - GENERALIZED EDEMA Status: Acute (6) COPD exacerbation Code(s): J44.1 - CHRONIC OBSTRUCTIVE PULMONARY DISEASE W (ACUTE) EXACERBATION Status: Acute (7) Diabetes Code(s): E11.9 - TYPE 2 DIABETES MELLITUS WITHOUT COMPLICATIONS Status: Chronic Qualifiers: Diabetes mellitus type: type 2 Diabetes mellitus shelter insulin use: unspecified long term care administrator insulin use status (8) Diastolic CHF Code(s): I50.30 - UNSPECIFIED DIASTOLIC (CONGESTIVE) HEART FAILURE Status: Chronic (9) History of CVA (cerebrovascular accident) Code(s): Z86.73 - PRSNL HX OF TIA (TIA), AND CEREB INFRC W/O RESID DEFICITS Status: Chronic (10) Hx of tracheostomy Code(s): Z98.890 - OTHER SPECIFIED POSTPROCEDURAL STATES Status: Chronic (11) Hyperlipemia Code(s): E78.5 - HYPERLIPIDEMIA, UNSPECIFIED Status: Chronic Qualifiers: Hyperlipidemia type: unspecified Qualified Code(s): E78.5 - Hyperlipidemia, unspecified (12) Hypertension Code(s): I10 - ESSENTIAL (PRIMARY) HYPERTENSION Status: Chronic Qualifiers: (13) Hypothyroidism Code(s): E03.9 - HYPOTHYROIDISM, UNSPECIFIED Status: Chronic Qualifiers: Hypothyroidism type: unspecified Qualified Code(s): E03.9 - Hypothyroidism, unspecified (14) Hypoventilation associated with obesity Code(s): E66.2 - MORBID (SEVERE) OBESITY WITH ALVEOLAR HYPOVENTILATION Status: Chronic (15) Macrocytic anemia Code(s): D53.9 - NUTRITIONAL ANEMIA, UNSPECIFIED Status: Chronic (16) Morbid obesity with BMI of 45.0-49.9, adult Code(s): E66.01 - MORBID (SEVERE) OBESITY DUE TO EXCESS CALORIES; Z68.42 - BODY MASS INDEX (BMI) 45.0-49.9, ADULT Status: Chronic (17) KATE (obstructive sleep apnea) Code(s): G47.33 - OBSTRUCTIVE SLEEP APNEA (ADULT) (PEDIATRIC) Status: Chronic (18) Paroxysmal a-fib Code(s): I48.0 - PAROXYSMAL ATRIAL FIBRILLATION Status: Chronic (19) Pulmonary hypertension Code(s): I27.2 - OTHER SECONDARY PULMONARY HYPERTENSION * DO NOT USE * Status: Chronic (20) Severe muscle deconditioning Code(s): R29.898 - OTH SYMPTOMS AND SIGNS INVOLVING THE MUSCULOSKELETAL SYSTEM Status: Chronic (21) Venous stasis Code(s): I87.8 - OTHER SPECIFIED DISORDERS OF VEINS Status: Chronic - Plan is on ceftriaxone, zithromax, asp, lasix, neurotnin, synthroid, sertraline trach collar with 60% fio2 pt is dnar, this was confirmed with son and poa I have d/w son about very poor prognosis and need for hospice and comfort care, he will talk to his father and come over to see her one dose lasix very poor prognosis, with pt in resp acidosis and distress
[2020-05-04] MEDS: Azithromycin 200 MG/5 ML Oral Suspension PO SCH (17:59)
[2020-05-04] MEDS: cefTRIAXone\\ROCEPHIN 2 GM in Sodium Chloride 0.9% 100 ML IVPB SCH (20:33)
[2020-05-04] MEDS: Enoxaparin Sodium 40 MG/0.4 ML SYRINGE SC SCH (20:35)
[2020-05-05] MEDS: Dextrose 10% in Water 1,000 ML IV SCH ×2 (02:18→17:34)
[2020-05-05] MEDS: Levothyroxine Sodium 100 MCG TAB PER TUBE SCH (05:57)
[2020-05-05] MEDS: Furosemide 40 MG/4 ML VIAL SLOW IVP SCH (10:04)
[2020-05-05] MEDS: Aspirin Chewable 81 MG TAB PER TUBE SCH (10:04)
[2020-05-05] MEDS: Famotidine/PF 20 mg/2ml Vial SLOW IVP SCH (10:04)
[2020-05-05] MEDS: Gabapentin 300 MG CAP PO SCH (10:04)
[2020-05-05] MEDS: Nystatin Powder 15 GM BOT TOP SCH (10:05)
[2020-05-05] MEDS: Potassium Chloride 20 MEQ TAB PER TUBE SCH (10:05)
--- NOTE | 2020-05-05 11:57 | PDOC.HOSPP ---
- Subjective Encounter Date: 05/05/20 Encounter Time: 11:20 Subjective: is in resp distress, taking very shallow breaths obtunded - Objective Vital Signs & Weight: Vital Signs (12 hours) Temp Pulse Resp Pulse Ox 05/05/20 11:26 97.3 F L 05/05/20 08:00 95 05/05/20 07:14 98.4 F 05/05/20 06:56 90 40 H 05/05/20 03:34 98.4 F Weight Admit Weight 269 lb 4.8 oz Weight 269 lb 4.8 oz Most Recent Monitor Data Heart Rate from ECG 88 NIBP 97/59 NIBP BP-Mean 71 Respiration from ECG 9 SpO2 95 I&O: 05/04/20 05/05/20 05/06/20 06:59 06:59 06:59 Intake Total 2860 2457 Output Total 500 150 Balance 2360 2307 Result Diagrams: 05/03/20 20:46 05/03/20 20:46 Additional Labs: Accuchecks 05/05/20 05/04/20 05:41 20:30 POC Glucose 141 H 124 H Hospitalist ROS - Medication Medications: Active Medications Generic Name Dose Route Start Last Admin Trade Name Freq PRN Reason Stop Dose Admin Acetaminophen 1,000 mg 04/21/20 20:31 04/30/20 05:50 Acetaminophen 500 Mg Tab PO 1,000 mg Q6H PRN Administration Mild Pain (1-3) Albuterol/Ipratropium 3 ml 05/04/20 19:00 05/05/20 06:56 Ipratropium/Albuterol Sulfate 3 Ml Neb NEB 3 ml [id number] SAIMRA Administration Aspirin 81 mg 04/23/20 09:00 05/05/20 10:04 Aspirin Chewable 81 Mg Tab PER TUBE 81 mg QAM SAMIRA Administration Azithromycin 250 mg 04/29/20 18:00 05/04/20 17:59 Azithromycin 200 Mg/5 Ml Oral Suspension PO 250 mg 1800 SAMIRA Administration Dextrose/Water 25 gm 04/21/20 20:31 05/01/20 05:57 Dextrose 50% Abboject 50 Ml Syringe SLOW IVP 25 gm PRN PRN Administration Hypoglycemia Enoxaparin Sodium 40 mg 04/26/20 21:00 05/04/20 20:35 Enoxaparin Sodium 40 Mg/0.4 Ml Syringe SC Not Given 2100 SAMIRA Famotidine 20 mg 04/21/20 21:00 05/05/20 10:04 Famotidine/Pf 20 Mg/2ml Vial SLOW IVP 20 mg Q12HR SAMIRA Administration Furosemide 40 mg 04/29/20 09:00 05/05/20 10:04 Furosemide 40 Mg/4 Ml Vial SLOW IVP 40 mg DAILY SAMIRA Administration Gabapentin 300 mg 04/22/20 21:00 05/05/20 10:04 Gabapentin 300 Mg Cap PO 300 mg BID SAMIRA Administration Ceftriaxone Sodium 2 gm/ 100 mls @ 200 mls/hr 04/21/20 21:00 05/04/20 20:33 Sodium Chloride IVPB 100 mls Q24HR SAMIRA Administration Dextrose/Water 1,000 mls @ 50 mls/hr 05/01/20 10:45 05/05/20 02:18 Dextrose 10% In Water IV 1,000 mls .Q20H SAMIRA Administration Levothyroxine Sodium 137 mcg 04/23/20 06:00 05/05/20 05:57 Levothyroxine Sodium 100 Mcg Tab PER TUBE Not Given 0600 SAMIRA Nystatin 0 gm 04/22/20 21:00 05/05/20 10:05 Nystatin Powder 15 Gm Bot TOP 1 applic BID SAMIRA Administration Potassium Chloride 20 meq 04/25/20 21:00 05/05/20 10:05 Potassium Chloride 20 Meq Tab PER TUBE 20 meq BID SAMIRA Administration Sertraline HCl 100 mg 04/23/20 09:00 05/05/20 10:05 Sertraline Hcl 100 Mg Tab PER TUBE 100 mg DAILY SAMIRA Administration Sodium Chloride 10 ml 04/21/20 21:00 05/05/20 10:05 Flush - Normal Saline 10 Ml Syringe IVF 10 ml Q12HR SAMIRA Administration - Exam General Appearance: ill appearing Eye: PERRL, anicteric sclera ENT: no oropharyngeal lesions, dry oral mucosa Neck: supple, no JVD Heart: RRR, no murmur Respiratory: no wheezes, rales, rhonchi Gastrointestinal: soft, non-distended, normal bowel sounds Extremities: no cyanosis, 2+ LE edema Neurological: cranial nerve grossly intact, no focal deficits Hosp A/P (1) Acute on chronic respiratory failure with hypoxia and hypercapnia Code(s): J96.21 - ACUTE AND CHRONIC RESPIRATORY FAILURE WITH HYPOXIA; J96.22 - ACUTE AND CHRONIC RESPIRATORY FAILURE WITH HYPERCAPNIA Status: Acute (2) Aspiration pneumonia Code(s): J69.0 - PNEUMONITIS DUE TO INHALATION OF FOOD AND VOMIT Status: Acute Qualifiers: Aspiration pneumonia type: due to regurgitated food Laterality: bilateral (3) UTI (urinary tract infection) Status: Acute Qualifiers: Urinary tract infection type: acute cystitis Hematuria presence: without hematuria Qualified Code(s): N30.00 - Acute cystitis without hematuria (4) Acute metabolic encephalopathy Code(s): G93.41 - METABOLIC ENCEPHALOPATHY Status: Acute (5) Anasarca Code(s): R60.1 - GENERALIZED EDEMA Status: Acute (6) COPD exacerbation Code(s): J44.1 - CHRONIC OBSTRUCTIVE PULMONARY DISEASE W (ACUTE) EXACERBATION Status: Acute (7) Diabetes Code(s): E11.9 - TYPE 2 DIABETES MELLITUS WITHOUT COMPLICATIONS Status: Chronic Qualifiers: Diabetes mellitus type: type 2 Diabetes mellitus ocean transportation intermediary insulin use: unspecified ocean transportation intermediary insulin use status (8) Diastolic CHF Code(s): I50.30 - UNSPECIFIED DIASTOLIC (CONGESTIVE) HEART FAILURE Status: Chronic (9) History of CVA (cerebrovascular accident) Code(s): Z86.73 - PRSNL HX OF TIA (TIA), AND CEREB INFRC W/O RESID DEFICITS Status: Chronic (10) Hx of tracheostomy Code(s): Z98.890 - OTHER SPECIFIED POSTPROCEDURAL STATES Status: Chronic (11) Hyperlipemia Code(s): E78.5 - HYPERLIPIDEMIA, UNSPECIFIED Status: Chronic Qualifiers: Hyperlipidemia type: unspecified Qualified Code(s): E78.5 - Hyperlipidemia, unspecified (12) Hypertension Code(s): I10 - ESSENTIAL (PRIMARY) HYPERTENSION Status: Chronic Qualifiers: (13) Hypothyroidism Code(s): E03.9 - HYPOTHYROIDISM, UNSPECIFIED Status: Chronic Qualifiers: Hypothyroidism type: unspecified Qualified Code(s): E03.9 - Hypothyroidism, unspecified (14) Hypoventilation associated with obesity Code(s): E66.2 - MORBID (SEVERE) OBESITY WITH ALVEOLAR HYPOVENTILATION Status: Chronic (15) Macrocytic anemia Code(s): D53.9 - NUTRITIONAL ANEMIA, UNSPECIFIED Status: Chronic (16) Morbid obesity with BMI of 45.0-49.9, adult Code(s): E66.01 - MORBID (SEVERE) OBESITY DUE TO EXCESS CALORIES; Z68.42 - BODY MASS INDEX (BMI) 45.0-49.9, ADULT Status: Chronic (17) KATE (obstructive sleep apnea) Code(s): G47.33 - OBSTRUCTIVE SLEEP APNEA (ADULT) (PEDIATRIC) Status: Chronic (18) Paroxysmal a-fib Code(s): I48.0 - PAROXYSMAL ATRIAL FIBRILLATION Status: Chronic (19) Pulmonary hypertension Code(s): I27.2 - OTHER SECONDARY PULMONARY HYPERTENSION * DO NOT USE * Status: Chronic (20) Severe muscle deconditioning Code(s): R29.898 - [facility] SYMPTOMS AND SIGNS INVOLVING THE MUSCULOSKELETAL SYSTEM Status: Chronic (21) Venous stasis Code(s): I87.8 - OTHER SPECIFIED DISORDERS OF VEINS Status: Chronic - Plan is on ceftriaxone, zithromax, asp, lasix, neurontin, synthroid, sertraline trach collar pt is dnar, this was confirmed with son and poa I have d/w son about very poor prognosis and need for hospice and comfort care, he will talk to his father and come over to see her 05/04/20 very poor prognosis
[2020-05-05] MEDS: Azithromycin 200 MG/5 ML Oral Suspension PO SCH (17:41)
[2020-05-05 19:17] VITALS: TEMP 98
--- NOTE | 2020-05-06 14:39 | DIS ---
DATE OF ADMISSION: 04/21/2020 DATE OF DISCHARGE: 05/05/2020 DISCHARGE DISPOSITION: To inpatient hospice with [facility]. PRIMARY DISCHARGE DIAGNOSES: Acute on chronic respiratory failure with hypoxia and hypercapnia, aspiration pneumonia, urinary tract infection, acute metabolic encephalopathy, anasarca, chronic obstructive pulmonary disease exacerbation, obesity hypoventilation syndrome, poor functional status, hypothyroidism, hypertension, dyslipidemia, history of tracheostomy, history of CVA, diastolic heart failure, diabetes mellitus type 2, chronic venous stasis, severe muscle deconditioning, pulmonary hypertension, paroxysmal atrial fibrillation, obstructive sleep apnea, morbid obesity with BMI of 49, and macrocytic anemia. PROCEDURES DONE DURING HOSPITALIZATION: Chest x-ray done on the day of admission showed multifocal pneumonia. Abdominal pelvic CAT scan done on 04/27/2020, showed findings of bibasilar pneumonia. PEG tube in place. Moderate amount of retained stool in the rectum. Echo with 2D Doppler done on 04/27/2020, showed ejection fraction of 55% to 60%, moderately dilated left atrium, [id number] tricuspid regurgitation, RV systolic pressures were elevated. Urine culture grew Proteus mirabilis. Blood cultures in the right hand and right arm grew different species of organism, Staphylococcus auricularis and Staphylococcus epidermidis. Urine culture grew Proteus mirabilis, resistant to quinolones, Macrobid, and sulfa. H and H 13 and 43, platelet count 65. Creatinine albumin 1.8. TSH 1.74. COVID-19 PCR was not detected on 04/21/2020. INPATIENT CONSULT: 1. Dr. Crain for Infectious Disease. 2. Dr. Ac for Pulmonology. DISCHARGE DISPOSITION: The patient is being discharged to inpatient hospice with comfort measures. BRIEF COURSE DURING HOSPITALIZATION: The patient initially got admitted on the 21 of April after she was sent over from [facility] with increasing confusion. The patient has history of chronic tracheostomy with chronic respiratory failure, poor functional status, and being bed-bound. Her initial workup revealed aspiration pneumonia. Blood cultures came back positive for Staph species. Urine culture had Proteus mirabilis. She was on broad-spectrum antibiotics. The patient's mental status all through her stay did not improve. The patient was progressively getting worse with her respiratory status. She started to have short shallow breaths due to severe deconditioning. She did not respond much to the antibiotics given. Multiple conversations were held with family, especially the son with regard to poor prognosis with progressive decline. She was initially made do not attempt to resuscitate on Wednesday, and as the patient progressively got worse, the family decided to place her on inpatient hospice. She has been accepted by [facility]. She will be shortly discharged. Again, her overall prognosis is very poor. Please see a [id number] documentation for the day of discharge on [facility]. Job ID: [id number]
== END 2020-05-05 20:03 | disposition hospice, inpatient (51) | DRG 871 ==
LOC: ERS 15:13 → 2NO 18:43 → IMCU/EMU 04-26 01:41
PROVIDERS: ADMIT Family Medicine; ATTEND Family Medicine
DX: A41.1 Sepsis due to other specified staphylococcus (principal); J96.22 Acute and chronic respiratory failure with hypercapnia; J96.21 Acute and chronic respiratory failure with hypoxia; Z66 Do not resuscitate; Z51.5 Encounter for palliative care; Z20.828 Contact with and (suspected) exposure to other viral communicable diseases; J69.0 Pneumonitis due to inhalation of food and vomit; G93.41 Metabolic encephalopathy; J15.9 Unspecified bacterial pneumonia; I50.33 Acute on chronic diastolic (congestive) heart failure; N39.0 Urinary tract infection, site not specified; J44.1 Chronic obstructive pulmonary disease with (acute) exacerbation; E66.2 Morbid (severe) obesity with alveolar hypoventilation; Z68.42 Body mass index [BMI] 45.0-49.9, adult; J44.0 Chronic obstructive pulmonary disease with (acute) lower respiratory infection; E87.2 Acidosis; E03.9 Hypothyroidism, unspecified; E78.5 Hyperlipidemia, unspecified; I11.0 Hypertensive heart disease with heart failure; E11.9 Type 2 diabetes mellitus without complications; I87.8 Other specified disorders of veins; I27.20 Pulmonary hypertension, unspecified; D53.9 Nutritional anemia, unspecified; A41.59 Other Gram-negative sepsis; B18.2 Chronic viral hepatitis C; K75.81 Nonalcoholic steatohepatitis (NASH); K74.60 Unspecified cirrhosis of liver; N20.0 Calculus of kidney; K72.90 Hepatic failure, unspecified without coma; D69.59 Other secondary thrombocytopenia; R13.10 Dysphagia, unspecified; I48.0 Paroxysmal atrial fibrillation; Z28.21 Immunization not carried out because of patient refusal; Z86.73 Personal history of transient ischemic attack (TIA), and cerebral infarction without residual deficits; Z78.1 Physical restraint status; Z74.01 Bed confinement status; Z79.899 Other long term (current) drug therapy; Z88.1 Allergy status to other antibiotic agents; Z88.0 Allergy status to penicillin; Z79.890 Hormone replacement therapy; Z79.82 Long term (current) use of aspirin; Z87.891 Personal history of nicotine dependence
CPT/HCPCS: 36415; 36416; 51701; 71045; 74176; 80048; 80053; 81003; 81015; 82140; 82550; 82553; 82607; 82746; 82805; 83605; 83735; 84100; 84443; 84484; 85025; 87040; 87070; 87077; 87086; 87149; 87186; 87205; 87635; 87804; 93005; 93010; 93306; 94640; 96365; 96367; J0692; J0696; J1940; J1956; J3370; J3475; J3490; J7620; S0028; U0003

== ENCOUNTER 2020-05-05 20:03 | Inpatient (IN) | payer OTHER ==
[2020-05-05] MEDS ORDERED: Ondansetron PF 4 MG/2 ML Vial IVP PRN (21:25)
[2020-05-05] MEDS ORDERED: Acetaminophen 650 MG Suppository PR PRN (21:25)
[2020-05-05] MEDS ORDERED: Morphine 2 MG/ML VIAL SLOW IVP PRN (21:26)
[2020-05-05] MEDS ORDERED: Lorazepam 2 MG/ML VIAL SLOW IVP PRN (21:27)
[2020-05-05] MEDS ORDERED: Scopolamine 1.5 mg/72 hour Patch TOP SCH (21:30)
[2020-05-05] MEDS: Morphine 2 MG/ML VIAL SLOW IVP SCH (21:47)
[2020-05-06 01:56] VITALS: BMI 50.8
[2020-05-06 02:49] VITALS: BP 74/45
[2020-05-06] MEDS: Morphine 2 MG/ML VIAL SLOW IVP SCH ×6 (02:50→11:04)
[2020-05-06 07:41] VITALS: TEMP 96.2
[2020-05-06] MEDS ORDERED: FLU VACC QS2020-21(6MOS UP)/PF 60 MCG/0.5 ML SYRINGE IM ONE (09:00)
--- NOTE | 2020-05-07 11:49 | DIS ---
DATE OF ADMISSION: 05/05/2020 DATE OF DISCHARGE: 05/06/2020 SUMMARY: DATE OF : May 06, 2020. TIME OF : 9:40 a.m. HISTORY OF PRESENT ILLNESS: This is a 65-year-old , who was admitted to hospital with acute on chronic respiratory failure as well as aspiration pneumonia. The patient was treated medically and failed due to multiple comorbidities. The patient was admitted to hospice for terminal care. The patient had multiple comorbidities as mentioned previously and was not amenable to any treatment. The patient was at the time noted above. COMPLICATIONS: No complications were reported. DISCHARGE DISPOSITION: To home. Discussed with family. Job ID: [id number]
== END 2020-05-06 09:40 | disposition expired | DRG 951 ==
LOC: IMCU/EMU 20:03
PROVIDERS: ADMIT Internal Medicine Nephrology; ATTEND Internal Medicine Nephrology
DX: Z51.5 Encounter for palliative care (principal); J69.0 Pneumonitis due to inhalation of food and vomit; J96.21 Acute and chronic respiratory failure with hypoxia; G93.41 Metabolic encephalopathy; I48.20 Chronic atrial fibrillation, unspecified; R65.10 Systemic inflammatory response syndrome (SIRS) of non-infectious origin without acute organ dysfunction; Z68.43 Body mass index [BMI] 50.0-59.9, adult; E11.9 Type 2 diabetes mellitus without complications; G47.33 Obstructive sleep apnea (adult) (pediatric); E66.01 Morbid (severe) obesity due to excess calories; J44.9 Chronic obstructive pulmonary disease, unspecified; K21.9 Gastro-esophageal reflux disease without esophagitis; B18.2 Chronic viral hepatitis C; Z93.0 Tracheostomy status; Z74.01 Bed confinement status; Z90.49 Acquired absence of other specified parts of digestive tract; Z88.0 Allergy status to penicillin; I46.9 Cardiac arrest, cause unspecified
CPT/HCPCS: 36416; J2270